=== PATIENT | male | born 1950 | race Caucasian/White ===

== ENCOUNTER 2023-10-18 13:30 | Day surgery (SDC) | payer MEDICARE ==
[~2023-10-18 13:30] MED LIST: LACTATED RINGERS 1,000 ML IV SCH
[2023-10-18] MEDS: LACTATED RINGERS 1,000 ML IV SCH (14:21)
[2023-10-18] MEDS ORDERED: SUCCINYLCHOLINE CHLORIDE 200 MG/10 ML VIAL IV ONE (14:25)
[2023-10-18] MEDS ORDERED: GLYCOPYRROLATE 0.2 MG/ML 2 ML VIAL ONE (14:25)
[2023-10-18] MEDS ORDERED: NEOSTIGMINE 1 MG/ML 10 ML VIAL ONE (14:25)
[2023-10-18] MEDS ORDERED: PROPOFOL 10 MG/ML 20 ML VIAL IV ONE (14:25)
[2023-10-18] MEDS ORDERED: ROCURONIUM 10 MG/ML (5 ML VIAL) IV ONE (14:25)
[2023-10-18] MEDS ORDERED: fentaNYL (PF) 50 MCG/ML 2 ML AMP ONE (14:25)
[2023-10-18] MEDS ORDERED: LIDOCAINE 1% INJ 10MG/ML (20 ML MDV) ONE (14:25)
--- NOTE | 2023-10-18 14:39 | CT ---
EXAMINATION TYPE: CT Chest [facility] protocol DATE OF EXAM: 10/18/2023 COMPARISON: HISTORY: pre bronchial navigation CT DLP: 611 mGycm. Automated Exposure Control for Dose Reduction was Utilized. TECHNIQUE: CT scan of the thorax is performed without IV contrast. FINDINGS: There is an 18.4 x 16.8 mm mass in the medial left upper lobe with spiculated margins. It is highly s uspicious for neoplasm and PET scan and/or biopsy is recommended for further evaluation. There are mild emphysematous changes. There is no pleural effusion or pneumothorax. The great vessels the chest are normal. There is an ill-defined 4.6 x 3.0 cm mass in the aortopulmonic window. Limited scanning through the upper abdomen reveals no gross abnormality. No focal osseous lesions are seen. IMPRESSION: Findings highly suspicious for left upper lobe lung cancer with mediastinal mass in the AP window. PE T scan and/or biopsy is recommended.
--- NOTE | 2023-10-18 16:31 | P.PCN ---
Date of Procedure: 10/18/23 Operative Findings: Left upper lobe mass Postoperative Diagnosis: Left upper lobe mass Procedure(s) Performed: Flexible bronchoscopy Robotic-assisted transbronchial needle aspirate, transbronchial biopsies, transbronchial brushing of the left upper lobe mass, including transbronchial biopsy , transbronchial brushing and a BAL Endobronchial ultrasound Anesthesia: LINETTE Surgeon: Christopher Myers Estimated Blood Loss (ml): 0 Pathology: other Condition: stable Disposition: same day Operative Findings: A physical exam was performed. Informed consent was obtained from the patient after explaining all the risks (pneumothorax, life threatening bleeding, infection and adverse effects due to medications), benefits and alternatives to the procedure which the patient appeared to understand and so stated. The patient was connected to the monitoring devices. General anesthesia was induced and the patient was intubated by anesthesia. A final timeout was performed and the procedure confirmed by the attending staff bronchoscopist. The bronchoscope was inserted and the airway examined. The airway examination revealed a normal trachea and normal airways. The flexible bronchoscope was removed and the robotic bronchoscope was inserted. Registration was completed. I next guided the robotic bronchoscope using the navigation system into the apical segment of the left upper lobe. Once in proper position, the bronchoscope was frozen. The radial EBUS probe was placed through the bronchoscope and confirmed abnormal u/s images vs normal lung. A needle was placed through the working channel and under fluoroscopic guidance, we sampled the area thought to have the mass twice. We then used a cloud biopsy pattern with ultrasound confirmation for 2 additional passes with the needle. U/S evaluation was then used to reconfirm location. Forceps were next introduced through working channel and extended the appropriate distance and 3 transbronchial biopsies were performed using fluoroscopic guidance. The u/s probe was then reinserted to confirm location. When confirmed this process was repeated for a total of 6 transbronchial biopsies. 40ml of saline was then instilled into the area of the lesion. The robotic bronchoscope was removed and the airway inspected with a flexible bronchoscope and 10 ml of effluent from the BAL was collected. The aspirate was bloody and ultimately declotted and based on that, the sample was discarded. Fluoroscopic check for pneumothorax was negative upon completion of the procedure. There was 0 ml blood loss with the procedure. At that point, the robot was disconnected. Endobronchial ultrasound was inserte d and full evaluation of the mediastinum was done. Upon examination, there was no significant enlargement of the mediastinal lymph nodes at the various stations. Based on those findings, no biopsies were done. Endobronchial ultrasound was removed. Flex bronchoscope was inserted and regular suctioning was done. At the completion of the procedure, no residual secretions or bloody material within the airway. The bronchoscope was removed. The patient was extubated. FINDINGS: 1.The airways are normal. 2 Successful navigation, ultrasonographic identification, and biopsies of left upper lobe mass 3.The the radial ultrasound view was concentric 4 endobronchial ultrasound, negative for any pathologic lymphadenopathy. RECOMMENDATIONS: Await pathology and cytology results The referring physician will be alerted to the results when available. The patient was advised to follow up with the referring physician with the biopsy results Patient will be called with results.
[2023-10-18 16:46] VITALS: TEMP 97.2
[2023-10-18 17:20] LABS: ALT 13 U/L (4-49); AST 21 U/L (17-59); African American GFR (CKD) >90 (>60 ml/min/1.73 sqM); Albumin 4.3 g/dL (3.5-5.0); Alkaline Phosphatase 48 U/L (38-126); Anion Gap 6 mmol/L; Blood Urea Nitrogen 21 mg/dL (9-20); Carbon Dioxide 27 mmol/L (22-30); Chloride 106 mmol/L (98-107); Glucose 101 mg/dL (74-99); Non-African American GFR(CKD) 87 (>60 ml/min/1.73 sqM); Potassium 4.9 mmol/L (3.5-5.1); Sodium 139 mmol/L (137-145); Total Bilirubin 0.6 mg/dL (0.2-1.3); Total Protein 7.3 g/dL (6.3-8.2)
--- NOTE | 2023-10-18 17:52 | FL ---
EXAMINATION TYPE: FL bronchoscopy Intraoperative/procedural fluoroscopic services were provided. Tota l fluoroscopy time is 3 minutes 59 seconds seconds with a total of 2 submitted images to PACS. Please see the operative/procedural note for further details. DAP: 9.8907 Gycm2
--- NOTE | 2023-10-18 17:56 | XR ---
EXAMINATION TYPE: XR chest 1V portable DATE OF EXAM: 10/18/2023 5:01 PM CLINICAL INDICATION:Male, 73 years old with history of post-bronch; COMPARISON: Chest radiographs from 09/24/2023 TECHNIQUE: XR chest 1V portable Frontal view of the chest. FINDINGS: Lungs/Pleura: There is no evidence of pleural effusion, focal consolidation, or pneumothorax. Pulmonary vascularity: Unremarkable. Heart/mediastinum: Cardiomediastinal silhouette is unremarkable. Musculoskeletal: No acute osseous pathology. IMPRESSION: Rotated exam with questionable right upper lung medial consolidation. Consider follow-up exam with be tter technique.
[2023-10-18 18:07] VITALS: BP 133/82
[2023-10-18 18:08] VITALS: PULSE 69; RESP 20
== END 2023-10-18 18:21 | disposition home or self-care (01) ==
LOC: ORWHC2ENDO 13:30
PROVIDERS: ATTEND Internal Medicine Critical Care Medicine
DX: J84.10 Pulmonary fibrosis, unspecified (principal); F12.20 Cannabis dependence, uncomplicated; G47.33 Obstructive sleep apnea (adult) (pediatric); I10 Essential (primary) hypertension; I25.10 Atherosclerotic heart disease of native coronary artery without angina pectoris; Z90.49 Acquired absence of other specified parts of digestive tract; Z98.890 Other specified postprocedural states; Z79.899 Other long term (current) drug therapy
CPT/HCPCS: 88108; 88305; 80053; 83735; 87070; 87205; 87116; 87102; 87206; 71045; 71250; 31628; 31629; 31623; 31624; J0330; J2710; J2001; J3010; J2704; S2900; 87496; 87498; 87502; 87529; 87634; 87635; 87798

== ENCOUNTER → 2023-11-09 | Outpatient (CLI) | payer MEDICARE ==
--- NOTE | 2023-11-09 13:08 | CA ---
Exercise Stress Test Report Name: Arnaud Trevino Exam Date: 11/09/2023 10:07 Exam Location: [place] Stress Ht (in): 70 Wt (lb): 210 BSA: 2.13 Ordering Phys: Horace Brooks MD Referring Phys: Todd Technologist: Lloyd Pabon Age: 73 Gender: M : 1950 Procedure CPT: Indications: I20.9 ANGINA PECTORIS, UNSPECIFIED ICD-10 Codes: Patient History: Shortness of breath and palpitations. Pre- OP Medications: Meds past 24 hrs: Pretest Chest Pain: STRESS TEST William Protocol Exercise Duration (min:sec): 04:[address] Depressions (mm): Angina Score: Celeste Score: Resting HR (bpm): 61 Peak HR (bpm): 133 Resting BP (mmHg): 143 / 82 Peak BP (mmHg): 186 / 80 MPHR: 147 Target HR: 125 % MPHR: 90 METS: 6.5 Total Dose: Peak Dose: Atropine: Double Product: 52881 BP Response: Stress Termination: Reached target heart rate Stress Symptoms: Dyspnea Stress Summary: ECG ANALYSIS Resting ECG: Stress ECG: CONCLUSIONS Baseline EKG revealed a normal sinus rhythm without significant ST-T changes. Patient walked on a standard William protocol for 4 minutes 3 seconds and achieved a maximal heart rate of 133 bpm which is 90% of predicted maximal. Patient developed some fatigue and shortness of breath but did not have any angina. EKG demonstrated no evidence of any ST segment changes to indicate ischemia. There was evidence of right-sided PVCs and also rare couplets. By EKG criteria this is a negative stress is with limited exercise capacity. Dr. Jasmine Rolle MD (Electronically Signed) Final Date: 09 Nov 2023 13:07
== END | disposition home or self-care (01) ==
LOC: RADNMMAIN 09:06
PROVIDERS: ATTEND Thoracic Surgery (Cardiothoracic Vascular Surgery)
DX: Z01.810 Encounter for preprocedural cardiovascular examination (principal); I49.3 Ventricular premature depolarization; I20.9 Angina pectoris, unspecified
CPT/HCPCS: 93017

== ENCOUNTER → 2023-11-12 | Outpatient (CLI) | payer MEDICARE ==
[2023-11-12 11:13] LABS: Partial Thromboplastin Time 24.7 sec (22.0-30.0)
[2023-11-12 15:21] LABS: INR 0.9 (<1.2); Prothrombin Time 10.1 sec (10.0-12.5)
[2023-11-12 15:58] LABS: Blood Urea Nitrogen 25.2 mg/dL (9.0-27.0); Carbon Dioxide 25.2 mmol/L (21.6-31.8); Chloride 101 mmol/L (96-109); Glucose 106 mg/dL (70-110); Potassium 4.7 mmol/L (3.5-5.5); Sodium 138 mmol/L (135-145)
[2023-11-12 16:22] LABS: Basophils # (A) 0.03 X 10*3/uL (0.00-0.10); Basophils % (A) 0.6 %; Eosinophils # (A) 0.34 X 10*3/uL (0.04-0.35); Eosinophils % (A) 6.2 %; HCT 40.3 % (39.6-50.0); HGB 13.6 g/dL (13.0-17.0); Lymphocytes # (A) 1.53 X 10*3/uL (0.90-5.00); Lymphocytes % (A) 28.1 %; MCH 31.9 pg (27.0-32.0); MCHC 33.7 g/dL (32.0-37.0); MCV 94.4 FL (80.0-97.0); Mean Platelet Volume 9.6 FL (9.5-12.2); Monocytes # (A) 0.43 X 10*3/uL (0.20-1.00); Monocytes % (A) 7.9 %; NRBC Per 100 WBC 0 X 10*3/uL (0.00-0.01); Neutrophils # (A) 3.06 X 10*3/uL (1.80-7.70); Neutrophils % (A) 56.1 %; Platelet Count 247 X 10*3/uL (140-440); RBC 4.27 X 10*6/uL (4.40-5.60); RDW 13.2 % (11.5-14.5); WBC 5.45 X 10*3/uL (4.50-10.00)
[2023-11-12 16:26] LABS: Appearance,Urine Clear (Clear); Bilirubin,Urine Negative (Negative); Blood,Urine Negative (Negative); Color,Urine Yellow (Yellow); Ketones,Urine Negative (Negative); Nitrite,Urine Negative (Negative); Specific Gravity,Urine 1.011 (1.001-1.030); Urobilinogen,Urine 0.2 E.U./DL
== END | disposition home or self-care (01) ==
LOC: LABPAT 10:30
PROVIDERS: ATTEND Thoracic Surgery (Cardiothoracic Vascular Surgery)
DX: Z01.812 Encounter for preprocedural laboratory examination (principal); R93.1 Abnormal findings on diagnostic imaging of heart and coronary circulation
CPT/HCPCS: 80051; 81003; 82565; 82947; 84520; 85025; 85610; 85730; 86850; 86900; 86901; 87086

== ENCOUNTER 2023-11-14 09:43 | Inpatient (IN) | payer MEDICARE ==
[2023-11-14] MEDS ORDERED: fentaNYL (PF) 50 MCG/ML 2 ML AMP IV PRN (09:58)
[2023-11-14] MEDS ORDERED: HYDROmorphone 0.5 MG/0.5 ML SYRINGE IVP PRN (09:58)
[2023-11-14] MEDS: MIDAZOLAM 2 MG/2 ML VIAL IVP ONE (10:51)
[2023-11-14] MEDS: fentaNYL (PF) 50 MCG/ML 2 ML AMP IVP ONE (10:51)
[2023-11-14] MEDS: ONDANSETRON 4 MG/2 ML VIAL IVP STA (11:13)
[2023-11-14] MEDS: DEXAMETHASONE SOD PHOSPHATE 4 MG/ML 1 ML VIAL IVP STA (11:13)
[2023-11-14] MEDS: LACTATED RINGERS 1,000 ML IV SCH (11:14)
[2023-11-14] MEDS: IV FLUID CONTINUATION 1,000 ML IV ONE ×2 (11:19)
[2023-11-14] MEDS ORDERED: ROPIVACAINE 5 MG/ML 30 ML VIAL ONE (12:00)
[2023-11-14] MEDS ORDERED: fentaNYL (PF) 50 MCG/ML 2 ML AMP ONE (12:00)
[2023-11-14] MEDS ORDERED: PHENYLEPHRINE 10 MG/ML VIAL ONE (12:00)
[2023-11-14] MEDS ORDERED: MIDAZOLAM 2 MG/2 ML VIAL ONE (12:00)
[2023-11-14] MEDS ORDERED: CALCIUM CHLORIDE 100 MG/ML 10 ML SYRINGE ONE (12:00)
[2023-11-14] MEDS ORDERED: GLYCOPYRROLATE 0.2 MG/ML 2 ML VIAL ONE (12:00)
[2023-11-14] MEDS ORDERED: LIDOCAINE 1% INJ 10MG/ML (20 ML MDV) ONE (12:00)
[2023-11-14] MEDS ORDERED: SUCCINYLCHOLINE CHLORIDE 200 MG/10 ML VIAL IV ONE (12:00)
[2023-11-14] MEDS ORDERED: VASOPRESSIN 20 UNIT/ML 1 ML VIAL ONE (12:00)
[2023-11-14] MEDS ORDERED: DEXAMETHASONE SOD PHOSPHATE 4 MG/ML 1 ML VIAL ONE (12:00)
[2023-11-14] MEDS ORDERED: ROCURONIUM 10 MG/ML (5 ML VIAL) IV ONE (12:00)
[2023-11-14] MEDS ORDERED: ePHEDrine 50 MG/ML 1 ML VIAL ONE (12:00)
[2023-11-14] MEDS ORDERED: ALBUMIN HUMAN 5% (12.5gm) 250 ML BOTTLE IVPB ONE (12:00)
[2023-11-14] MEDS ORDERED: PROPOFOL 10 MG/ML 20 ML VIAL IV ONE (12:00)
[2023-11-14] MEDS ORDERED: ALBUMIN HUMAN 5% (25gm) 500 ML VIAL IVPB ONE (12:00)
[2023-11-14] MEDS ORDERED: SODIUM BICARB 8.4% 50 ML SYR (1 MEQ/ML) ONE (12:00)
--- NOTE | 2023-11-14 12:29 | P.ANPRN ---
Procedure Note - Anesthesia - Nerve Block Performed Left Erector Spinae Single Time Out Performed: Yes Date of Procedure: 11/14/23 Procedure Start Time: 10:50 Procedure Stop Time: 11:00 Location of Patient: PreOp Indication: Acute Post-Operative Pain, Analgesia, Requested by Surgeon Sedation Type: Sedate with meaningful contact maintained Preparation: Sterile Prep Position: Prone Needle Types: Pajunk Needle Gauge: 21 Ultrasound used to visualize needle placement: Yes Ultrasound used to observe medication spread: Yes Injectate: 0.5% Ropivacaine (see comment for volume) (25 ml + 4 mg Dexamethasone) Blood Aspirated: No Pain Paresthesia on Injection Noted: No Resistance on Injection: Normal Image Stored and Saved: Yes Events: Uneventful and Well Tolerated
[2023-11-14] MEDS: BUPIVACAINE (PF) 0.25% 30 ML VIAL SQ ONE (12:34)
[2023-11-14] MEDS: LACTATED RINGERS 1,000 ML IV ONE ×3 (14:00→19:12)
[2023-11-14 18:02] LABS: HCT 29.8 % (39.0-53.0); HGB 9.9 gm/dL (13.0-17.5); MCH 31.4 pg (25.0-35.0); MCHC 33.1 g/dL (31.0-37.0); MCV 95.1 fL (80.0-100.0); Mean Platelet Volume 7.4; Platelet Count 141 k/uL (150-450); RBC 3.13 m/uL (4.30-5.90); RDW 14.2 % (11.5-15.5); WBC 7.5 k/uL (3.8-10.6)
[2023-11-14 18:16] LABS: Potassium 4.2 mmol/L (3.5-5.1)
[2023-11-14 18:25] LABS: Allen Test Performed? Yes
[2023-11-14 18:26] LABS: ABG HCO3 13 mmol/L (21-25); ABG PCO2 32 mmHg (35-45); ABG PO2 210 mmHg (83-108)
[2023-11-14 18:27] LABS: INR 1.3 (<1.2); Partial Thromboplastin Time 26.5 sec (22.0-30.0); Prothrombin Time 14.1 sec (10.0-12.5)
[2023-11-14 18:28] LABS: ABG Oxygen Saturation 99.8 % (94-97)
[2023-11-14 18:32] LABS: ABG PH 7.21 (7.35-7.45)
--- NOTE | 2023-11-14 19:59 | P.OP ---
Date of Procedure: 11/14/23 Preoperative Diagnosis: Lung Nodule Postoperative Diagnosis: Non Small Cell Lung Cancer Procedure(s) Performed: 1. Bronchoscopy 2. Left robotic assisted thorascopic surgery converted the open postero-lateral thoracotomy with left upper lobectomy 3. Mediastinal lymph node dissection 4. Intercostal nerve block - 3 levels. Anesthesia: GETA Surgeon: Horace Brooks Doctor'S Assistant #1: Hernesto Delgado Estimated Blood Loss (ml): 3,000 Urine output (ml): 650 Pathology: other Condition: critical Disposition: ICU Indications for Procedure: This patient is a 73 year-old M who is a former smoker with a 20 pack year smoking history who had imaging done by his PCP that revealed a lung nodule. Further work-up including PET/CT revealed a 1.9cm nodule in the apex of the left upper lobe with signficant FDG avidity in the mass as well as AP window nodes. Robotic assisted biopsy was attempted but inconclusive. There was a good chance that this was malignancy and likely Stage 3A disease. Given the lack of tissue diagnosis, young age and excellent functional status, up front frozen section analysis with lobectomy was offered. Operative Findings: Large conglomerate of matted AP window nodes positive for NSCLC. Truncus branch inury requiring conversion to open procedure. Description of Procedure: The patient underwent erecter spinae block and arterial line placement in the pre-operative suite by anesthesia. He was brought back to the operating room and placed in the supine position. General anesthesia was induced and he was intubated with a double lumen tube. Bronchoscopy was performed to check placement of the tube and diagnostic purposes. There were no endobronchial lesions especially in the left upper lobe. The patient was positioned in the right lateral decubitus position and his left chest was prepped and draped in the usual sterile fashion. Antibiotic were given and left lung was isolated. I made 3 small incisions in the 8th intercostal space and placed ports. The maury st was insufflated to 10mm hg. An additional 12mm port was placed anteriorly in the 7th intercostal space and an assist port was placed in the 10th intercostal space. 0.25% marcaine was used to perform intercostal nerve block at each level. The Da Valentina Xi robot was docked and the left upper lobe mass was identified and wedged using an endo-JESSICA stapler. Next the AP window area was dissected. Level 5 and 6 nodes were matted and abnormal appearing. This was all sent for frozen section analysis. In the meantime the inferior pulmonary ligament was divided using bipolar cautery and the posterior mediastinal pleura was released. The level 9 and 7 nodes were harvested here. The anterior mediastinal pleura was dissected and the superior pulomary vein was encircled with a vessel loop. Frozen section analysis revealed non small cell carcinoma. Attention was turned posteiror to the branches of the PA. Two branches of the PA were encircled separate and stapled using the robotic white load. The superior pulmonary vein was then stapled using a robotic white load. Next the anterior and posterior fissures were divided using a robotic blue load stapler. Next the upper lobe bronchus was encirlced and stapled using a robotic green load stapler. This staple fire was abruptly terminated half way due to robotic stapler malfunction. The rest of the bronchus was taken with a new robotic stapler using a blue load. Attention was then turned to the truncus branch of the PA. The matted nodes were significant adherent to this branch. Upon dissection, I encountered bleeding from the superior portion of the truncus/PA junction. Pressure was held and the bleeding subsided momentarily. However, given my concern for real injury I made the decision to open. Posterolateral thoracotomy was performed in the 5th intercostal space and upon inspection of the area there was a tear noted on the truncus. An attempt at encircling this was attempted but unsuccessful. At this point two straight vascular clamps were placed in the artery and the endo JESSICA vascular load was fired above it. The specimen was passed off to pathology. The injured vessel was then repaired using a mattress 4-0 prolene suture and pledg eted 4-0 prolene suture. Clamps were released with good hemostasis. However, we did lose 3L of blood in the process and the patient was transfused 4 units of pRBC. The chest was irrigated and thoracotomy closed in layers of PDS and matthieu. 32F right angled and 28F chest tubes were placed. Robotic incisions were closed in layers of vicryl and glue. Patient was transferred to CICU in critical condition requiring mild amount of vasopressors but without signs of bleeding.
[2023-11-14] MEDS: NOREPINEPHRINE 4 MG in SODIUM CHLORIDE 0.9% 250 ML IV SCH (20:13)
[2023-11-14] MEDS: SODIUM BICARBONATE 150 MEQ in DEXTROSE 5% IN WATER 1,000 ML IV SCH (20:25)
[2023-11-14 20:28] LABS: ABG Base Excess -6.3 mmol/L; ABG HCO3 21 mmol/L (21-25); ABG Oxygen Saturation 100.3 % (94-97); ABG PCO2 50 mmHg (35-45); ABG PH 7.23 (7.35-7.45); ABG TCO2 23 mmol/L (19-24); Allen Test Performed? Yes
[2023-11-14 20:29] LABS: ABG PO2 >420 mmHg (83-108)
[2023-11-14 20:39] LABS: Basophils % (A) 0 %; Eosinophils % (A) 0 %; HCT 27.2 % (39.0-53.0); HGB 8.9 gm/dL (13.0-17.5); Lymphocytes # (A) 0.6 k/uL (1.0-4.8); Lymphocytes % (A) 8 %; MCH 30.6 pg (25.0-35.0); MCHC 32.5 g/dL (31.0-37.0); Mean Platelet Volume 8.5; Monocytes # (A) 0.7 k/uL (0-1.0); Monocytes % (A) 9 %; Neutrophils # (A) 6.3 k/uL (1.3-7.7); Neutrophils % (A) 82 %; Platelet Count 134 k/uL (150-450); RBC 2.89 m/uL (4.30-5.90); RDW 14.6 % (11.5-15.5); WBC 7.7 k/uL (3.8-10.6)
[2023-11-14 21:27] LABS: AST 22 U/L (17-59); African American GFR (CKD) >90 (>60 ml/min/1.73 sqM); Albumin 2.5 g/dL (3.5-5.0); Alkaline Phosphatase 23 U/L (38-126); Anion Gap 12 mmol/L; Blood Urea Nitrogen 18 mg/dL (9-20); Calcium 7.2 mg/dL (8.4-10.2); Carbon Dioxide 22 mmol/L (22-30); Chloride 107 mmol/L (98-107); Glucose 321 mg/dL (74-99); Magnesium 1.4 mg/dL (1.6-2.3); Non-African American GFR(CKD) >90 (>60 ml/min/1.73 sqM); Potassium 3.2 mmol/L (3.5-5.1); Sodium 141 mmol/L (137-145); Total Bilirubin 1.3 mg/dL (0.2-1.3); Total Protein 4.1 g/dL (6.3-8.2)
[2023-11-14] MEDS ORDERED: WATER IV SCH (21:30)
[2023-11-14] MEDS ORDERED: SODIUM BICARB IV SCH (21:30)
[2023-11-14] MEDS ORDERED: DEXTROSE 5% IV SCH (21:30)
[2023-11-14 21:52] LABS: ALT 17 U/L (4-49)
[2023-11-14] MEDS ORDERED: Potassium Replacement Protocol 1 EACH MISC MISCELLANE PRN ×2 (21:57→22:53)
[2023-11-14] MEDS ORDERED: Magnesium Replacement Protocol 1 EACH MISC MISCELLANE PRN (21:58)
[2023-11-14] MEDS: MAGNESIUM SULFATE-D5W PMX 1 GM in DEXTROSE/WATER 1 100ML.BAG IVPB SCH (22:49)
--- NOTE | 2023-11-14 23:03 | XR ---
EXAMINATION TYPE: XR chest 1V portable DATE OF EXAM: 11/14/2023 CLINICAL HISTORY: Postlobectomy. TECHNIQUE: Single AP portable semiupright view of the chest is obtained. COMPARISON: Chest x-ray from October 18, 2023 FINDINGS: There is is new endotracheal tube terminating at the aortic knob level approximately 4 to 5 cm above the mildred. There is new orogastric tube extending to the proximal duodenum. There R2 new left-sided chest tubes. There is new left-sided volume loss without pneumothorax. Overlying matthieu a nd subcutaneous air is present. Right lung remains clear. Cardiac silhouette size remains within norm al limits. Osseous structures are intact. IMPRESSION: 1. New endotracheal and orogastric tubes are satisfactory in position. 2. There are 2 left-sided chest tubes with new left-sided volume loss without visualized pneumothorax . Right lung remains clear.
[2023-11-14] MEDS: POTASSIUM CHLORIDE 10 MEQ in WATER FOR INJECTION 1 100ML.BAG IVPB SCH (23:06)
[2023-11-15] MEDS ORDERED: DEXTROSE 50% SYRINGE 50 ML IVP PRN ×2 (00:11)
[2023-11-15 00:15] LABS: Glucose,Whole Blood 375 mg/dL (70-110)
[2023-11-15] MEDS: INSULIN ASPART (NovoLOG) 100 UNIT/ML VIAL SQ ONE ×2 (00:32→09:04)
[2023-11-15] MEDS ORDERED: ONDANSETRON 4 MG/2 ML VIAL IVP PRN (00:44)
[2023-11-15] MEDS ORDERED: IPRATROPIUM-ALBUTEROL 3 ML NEB IH PRN (00:44)
[2023-11-15] MEDS: METOPROLOL SUCCINATE (ER) 50 MG TAB.ER.24H PO SCH (00:54)
[2023-11-15] MEDS: traZODone HCL 50 MG TAB PO SCH (00:55)
[2023-11-15] MEDS: SERTRALINE 50 MG TAB PO SCH (00:57)
[2023-11-15] MEDS: DEXTROSE 5%-0.45% NACL 1,000 ML IV SCH (01:06)
[2023-11-15] MEDS: IPRATROPIUM-ALBUTEROL 3 ML NEB IH SCH (01:37)
--- NOTE | 2023-11-15 01:47 | P.CNPUL ---
History of Present Illness Consult date: 11/15/23 Requesting physician: Horace Brooks Reason for consult: other (Status post video-assisted thorascopic surgery converted to open with left upper lobectomy) Chief complaint: Status post video-assisted thorascopic surgery converted to open with left History of present illness: Patient is a 73-year-old white male with past medical history significant for left upper lung nodule. Patient did reportedly have a PET scan, showing an FDG avid spiculated 17 x 15 mm lung nodule. He underwent Ion bronchoscopy with Dr. Myers on 10/18/2023, which was essentially nondiagnostic. He was referred to cardiothoracic surgery for diagnosis. Yesterday, patient underwent bronchoscopy with a left robotic assisted thorascopic surgery converted to open posterior lateral thoracotomy with left upper lobectomy and mediastinal lymph node dissection. The OR report indicated some nodes matted and adherent to the truncus branch of the pulmonary artery. 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 Intraoperatively, the patient was noted to have extensive blood loss, total of 3 L EBL. He was converted to open procedure. Hemostasis was able to be achieved. He has received a total of 5 units PRBCs, 1.2 L of albumin, and 3 L of crystalloid. He is currently in the intensive care unit, intubated to mechanical ventilator. He has a left lateral thoracotomy incision with 2 chest tubes with a total of 170 mL of serosanguineous output collectively. 1 has a persistent intermittent airleak. They are attached to 2 separate atriums with -20 cm H2O suction. Postoperative chest x-ray shows the endotracheal tube approximately 4 to 5 cm above the mildred, in satisfactory position. Orogastric tube likely extending in the proximal duodenum. The two left-sided chest tubes are demonstrated, with new left-sided volume loss, without visualized pneumothorax or fluid collection. Initial postoperative ventilator settings were AC, respiratory rate 16, tidal volume 500, FiO2 100%, and PEEP of 5. Follow-up ABGs included a PaO2 of greater than 420, P CO2 of 50, pH of 7.23. My supervising physician adjusted the respiratory rate to 20 and FiO2 has been cut down to 50%. Patient is currently synchronous on mechanical ventilator. He is sedated on propofol which is infusing at 40 mcg/kg/min. Levophed is also infusing at 0.05 mcg/kg/min. This is an improvement, as the patient had some substantial hypotension intraoperatively. The nurse has been able to titrate down on the Levophed after completing the above-mentioned blood products. No significant hemorrhaging from chest tubes at this time. Fluid appears serosanguineous. Most recent hemoglobin 8.9 g/dL, hematocrit 27.2, platelets 134,000. Coagulation profile includes a PT of 14, INR of 1.3, and a PTT of 26.5. Most recent available BMP: Sodium 141, potassium 3.2, chloride 107, serum bicarb 22, BUN 18, creatinine 0.73, glucose 321. Patient also has a 3M sodium bicarb in D5W infusion at 200 MLS per hour. This is a contributing to some hyperglycemia. Review of Systems ROS unobtainable: due to endotracheal tube Past Medical History Past Medical History: Chest Pain / Angina, Hypertension, Prostate Disorder, Sleep Apnea/CPAP/BIPAP Additional Past Medical History / Comment(s): uses cpap, recent difficutly breathing with exertion, chest pain approx 20yrs ago, bells palsy,elevated prostate numbers, had bx was clear,. disolocated neck as child History of Any Multi-Drug Resistant Organisms: None Reported Past Surgical History: Appendectomy Additional Past Surgical History / Comment(s): kncule replacement. kidney stones with stent placement, anal sissure repair Additional Past Anesthesia/Blood Transfusion Reaction / Comment(s): "stopped breathing during anal fissure surgery" approx 20yrs Smoking Status: Never smoker - Past Family History Mother Family Medical History: Cancer Additional Family Medical History / Comment(s): breast Medications and Allergies Home Medications Medication Instructions Recorded Confirmed Type ALPRAZolam [Xanax] 0.5 mg PO DAILY PRN 10/15/23 11/14/23 History Albuterol Inhaler [Ventolin Hfa 1 - 2 puff INHALATION Q6H PRN 10/15/23 11/14/23 History Inhaler] Dutasteride 0.5 mg PO DAILY 10/15/23 11/14/23 History Fluticasone Propionate 2 sprays EA NOSTRIL DAILY 10/15/23 11/14/23 History [Fluticasone Propionate [place] 50 mcg Nasal [place]] Losartan/Hydrochlorothiazide 1 tab PO DAILY 10/15/23 11/14/23 History [Losartan-Hctz 100-25 mg Tab] Metoprolol Succinate (ER) [Toprol 50 mg PO HS 10/15/23 11/14/23 History Xl] Sertraline [Zoloft] 50 mg PO HS 10/15/23 11/14/23 History Tamsulosin [Flomax] 0.4 mg PO DAILY 10/15/23 11/14/23 History amLODIPine BESYLATE 10 mg PO DAILY 10/15/23 11/14/23 History traZODone HCL [Desyrel] 50 mg PO HS 10/15/23 11/14/23 History Allergies Allergy/AdvReac Type Severity Reaction Status Date / Time ragweed pollen Allergy Itching Verified 11/14/23 10:26 Physical Exam Vitals: Vital Signs Temp Pulse Pulse Resp BP BP Pulse Ox 11/15/23 00:29 97.5 F L 94 20 104/53 99 11/15/23 00:15 92 20 100 11/15/23 00:00 97.5 F L 94 20 99 11/14/23 23:45 93 20 100 11/14/23 23:42 11/14/23 23:38 11/14/23 23:30 92 20 100 11/14/23 23:15 90 20 100 11/14/23 23:00 90 20 100 11/14/23 22:45 93 20 100 11/14/23 22:36 92 20 117/66 100 11/14/23 22:30 92 20 100 11/14/23 22:20 93 20 106/96 100 11/14/23 22:16 92 20 106/96 100 11/14/23 22:10 97 20 108/61 100 11/14/23 22:00 87 20 98/53 100 11/14/23 21:50 89 20 105/58 100 11/14/23 21:40 89 20 98/50 100 11/14/23 21:30 91 20 96/51 11/14/23 21:20 87 20 87/50 100 11/14/23 21:10 87 20 86/45 100 11/14/23 21:00 88 20 83/56 100 11/14/23 20:50 88 20 79/50 100 11/14/23 20:40 92 20 92/48 100 11/14/23 20:30 96 20 101/49 100 11/14/23 20:20 101 H 20 79/36 100 11/14/23 20:10 101 H 20 98/49 100 11/14/23 20:00 11/14/23 19:59 11/14/23 11:03 56 L 16 99/63 96 11/14/23 10:19 97.9 F 68 16 121/75 96 FiO2 11/15/23 00:29 11/15/23 00:15 11/15/23 00:00 50 11/14/23 23:45 11/14/23 23:42 50 11/14/23 23:38 40 11/14/23 23:30 11/14/23 23:15 11/14/23 23:00 11/14/23 22:45 11/14/23 22:36 11/14/23 22:30 11/14/23 22:20 11/14/23 22:16 11/14/23 22:10 11/14/23 22:00 11/14/23 21:50 11/14/23 21:40 11/14/23 21:30 11/14/23 21:20 11/14/23 21:10 11/14/23 21:00 11/14/23 20:50 11/14/23 20:40 11/14/23 20:30 50 11/14/23 20:20 11/14/23 20:10 50 11/14/23 20:00 100 11/14/23 19:59 100 11/14/23 11:03 11/14/23 10:19 Intake and Output 11/14/23 11/14/23 11/15/23 14:59 22:59 06:59 Intake Total 4050 2123.921 2414.556 Output Total 650 4215 463 Balance 3400 -2443.915 567.556 Intake: IV 4050 440 626 A line 6 Dextrose 5% in Water 1, 350 200 000 ml @ 200 mls/hr IV . Q5H45M [facility]NA with Sodium Bicarb (1 Meq/ml) 150 ml Rx#:[id number] Lactated Ringers 1,000 ml 40 20 @ 20 mls/hr IV .Q24H MINNA Rx#:[id number] Magnesium Sulfate-D5w Pmx 200 1 gm In Dextrose/Water 1 100ml.bag @ 100 mls/hr IVPB Q1H MINNA Rx#: [id number] Potassium Chloride 10 meq 200 In Water For Injection 1 100ml.bag @ 100 mls/hr IVPB Q1HR MINNA Rx#: [id number] Intake, IV Titration 150.085 118.556 Amount Norepinephrine 4 mg In 144.192 61.976 Sodium Chloride 0.9% 250 ml @ 0.03 MCG/KG/MIN 10. 779 mls/hr IV .[id number] [facility]NA Rx#:[id number] propofoL 1,000 mg In 5.893 56.58 Empty Bag 1 bag @ 15 MCG/ KG/MIN 8.487 mls/hr IV . [id number] MINNA Rx#:[id number] Blood Product 1181 286 Rc As-1 Unit 310 [id number] Rc As-1 Unit 310 [id number] Rc Pheresis 2 As3 Unit 0 286 [id number] Rc Pheresis As-3 Unit 282 [id number] Rc Pheresis As-3 Unit 279 [id number] Output: Chest Tube Drainage 135 63 L pleural CHT 1 40 20 L pleural CHT 2 95 43 Urine 650 1080 400 Estimated Blood Loss 3000 Other: Voiding Method Indwelling Catheter Weight 94.3 kg ABP, PAP, CO, CI - Last 8 Hours Arterial Blood Pressure 105/54 Arterial Blood Pressure 108/54 Arterial Blood Pressure 112/56 Arterial Blood Pressure 115/58 Arterial Blood Pressure 117/60 Arterial Blood Pressure 117/60 Arterial Blood Pressure 112/59 Arterial Blood Pressure 117/66 GENERAL EXAM: Sedated, intubated to mechanical ventilator, synchronous, no apparent distress HEAD: Normocephalic and atraumatic EYES: Normal reaction of pupils, equal size. NOSE: Clear with pink turbinates. THROAT: No erythema or exudates. NECK: No masses, no JVD. CHEST: Left lateral thoracotomy incision. 2 left-sided chest tubes attached to 2 separate atriums and 20 cm H20 of suction LUNGS: Equal air entry with left-sided grating sound or pleural friction rub. Intubated mechanical ventilator. Synchronous. Peak pressures 24. No significant airway secretions. CVS: S1 and S2 normal with no audible murmur, regular rhythm. No extra heart sounds ABDOMEN: No hepatosplenomegaly, hypoactive bowel sounds, no guarding or rigidity. SPINE: No scoliosis or deformity SKIN: No rashes. Generalized pallor. CENTRAL NERVOUS SYSTEM: No focal deficits, tone is normal in all 4 extremities. EXTREMITIES: There is no peripheral edema, clubbing, or cyanosis. Peripheral pulses are intact. Results - Laboratory Findings CBC and BMP: 11/14/23 20:06 11/14/23 20:06 ABG ABG pH 7.23 (7.35-7.45) L 11/14/23 20:24 ABG pCO2 50 mmHg (35-45) H 11/14/23 20:24 ABG pO2 >420 mmHg (83-108) H 11/14/23 20:24 ABG O2 Saturation 100.3 % (94-97) H 11/14/23 20:24 PT/INR, D-dimer PT 14.1 sec (10.0-12.5) H 11/14/23 17:46 INR 1.3 (<1.2) H 11/14/23 17:46 Abnormal lab findings: Abnormal Labs 11/12/23 11/14/23 11/14/23 10:42 17:46 17:46 RBC 3.13 L Hgb 9.9 L Hct 29.8 L Plt Count 141 L Lymphocytes # PT 14.1 H INR 1.3 H ABG pH ABG pCO2 ABG pO2 ABG HCO3 ABG O2 Saturation Hemoglobin Potassium Chloride Carbon Dioxide Glucose POC Glucose (mg/dL) Calcium Magnesium Alkaline Phosphatase Total Protein Albumin Crossmatch See Detail 11/14/23 11/14/23 11/14/23 17:46 17:46 20:06 RBC 2.89 L Hgb 8.9 L Hct 27.2 L Plt Count 134 L Lymphocytes # 0.6 L PT INR ABG pH 7.21 L ABG pCO2 32 L ABG pO2 210 H ABG HCO3 13 L ABG O2 Saturation 99.8 H Hemoglobin 7.5 L Potassium Chloride 110 H Carbon Dioxide 16 L Glucose POC Glucose (mg/dL) Calcium Magnesium Alkaline Phosphatase Total Protein Albumin Crossmatch 11/14/23 11/14/23 11/15/23 20:06 20:24 00:06 RBC Hgb Hct Plt Count Lymphocytes # PT INR ABG pH 7.23 L ABG pCO2 50 H ABG pO2 >420 H ABG HCO3 ABG O2 Saturation 100.3 H Hemoglobin Potassium 3.2 L Chloride Carbon Dioxide Glucose 321 H POC Glucose (mg/dL) 375 H Calcium 7.2 L Magnesium 1.4 L Alkaline Phosphatase 23 L Total Protein 4.1 L Albumin 2.5 L Crossmatch - Diagnostic Findings Chest x-ray: image reviewed Assessment and Plan Assessment: Status postoperative day #1 following bronchoscopy with a left robotic assisted thorascopic surgery converted to open posterior lateral thoracotomy with left upper lobectomy and mediastinal lymph node dissection. The OR report indicated some nodes matted and adherent to the truncus branch of the pulmonary artery. Frozen section analysis reportedly revealed non-small cell carcinoma. Intraoperatively, the patient was noted to have extensive blood loss, total of 3 L EBL. He was converted to open procedure. Hemostasis was able to be achieved. He has received a total of 5 units PRBCs, 1.2 L of albumin, and 3 L of crystalloid. Patient is currently recovering in the intensive care unit Routine postoperative ventilator management, postoperative chest x-ray shows endotracheal tube in satisfactory position, orogastric tube likely terminating within the duodenum, 2 left-sided thoracotomy tubes noted, no obvious pneumothorax or pleural effusions. Follow-up ABG showed component of respiratory and metabolic acidosis, ventilator settings already adjusted by my supervising physician. Will work at weaning the patient from the ventilator this morning. History of left upper lung nodule, previous PET scan demonstrating a FDG avid spiculated 17 x 15 mm lung nodule. Previously underwent robotic assisted bronchoscopy with Dr. Myers 10/18/2023, which was essentially nondiagnostic. Patient was referred to cardiothoracic surgery for diagnosis. Acute blood loss anemia, hemostasis achieved intraoperatively, status post 5 units PRBCs, most recent hemoglobin 8.9 g/dL Hypotension and hypovolemic shock, patient had a large EBL of 3 L, receiving a total of 5 units PRBCs, 1.2 L albumin, and 3 L crystalloid so far, eventually requiring vasopressor support. Norepinephrine is currently being weaned down. Hyperglycemia, likely exacerbated by sodium bicarbonate in D5W infusion, no documented history of diabetes mellitus Hypokalemia and hypomagnesemia, being replaced per protocol History of hypertension History of obstructive sleep apnea History of marijuana use Former tobacco smoker, quitting May 2023 Plan: Patient is currently recovering in the intensive care unit. Remains intubated mechanical ventilator. Ventilator adjustments noted. Will work on weaning this patient from the ventilator this morning. Follow-up with a chest x-ray this morning. Monitor chest tube output. Waiting on repeat labs. Patient has received a total of 5 units PRBCs. Patient's vasopressor requirements have lessened after volume resuscitation. Remains on low-dose Levophed. Also, on a sodium bicarb with 3 A in D5W infusing at 200 MLS per hour, which will likely be discontinued. This is contributing to some hyperglycemia. Sliding scale insulin ordered Protonix for GI prophylaxis. SCDs are on. Pharmacological DVT prophylaxis per surgery. Further recommendations are forthcoming. Time with Patient: Greater than 30
[2023-11-15 04:02] LABS: Basophils % (A) 0 %; Eosinophils % (A) 0 %; HCT 30.8 % (39.0-53.0); HGB 10.6 gm/dL (13.0-17.5); Lymphocytes # (A) 0.4 k/uL (1.0-4.8); Lymphocytes % (A) 7 %; MCH 31.5 pg (25.0-35.0); MCHC 34.4 g/dL (31.0-37.0); MCV 91.4 fL (80.0-100.0); Mean Platelet Volume 8.9; Monocytes # (A) 0.4 k/uL (0-1.0); Monocytes % (A) 7 %; Neutrophils # (A) 4.9 k/uL (1.3-7.7); Neutrophils % (A) 85 %; Platelet Count 128 k/uL (150-450); RBC 3.37 m/uL (4.30-5.90); RDW 14.3 % (11.5-15.5); WBC 5.7 k/uL (3.8-10.6)
[2023-11-15 04:43] LABS: African American GFR (CKD) >90 (>60 ml/min/1.73 sqM); Anion Gap 10 mmol/L; Blood Urea Nitrogen 17 mg/dL (9-20); Calcium 7.6 mg/dL (8.4-10.2); Carbon Dioxide 23 mmol/L (22-30); Chloride 103 mmol/L (98-107); Glucose 287 mg/dL (74-99); Magnesium 1.9 mg/dL (1.6-2.3); Non-African American GFR(CKD) 90 (>60 ml/min/1.73 sqM); Potassium 4.2 mmol/L (3.5-5.1); Sodium 136 mmol/L (137-145)
[2023-11-15 05:51] LABS: ABG Base Excess 2.3 mmol/L; ABG HCO3 27 mmol/L (21-25); ABG Oxygen Saturation 99.6 % (94-97); ABG PCO2 40 mmHg (35-45); ABG PH 7.44 (7.35-7.45); ABG PO2 117 mmHg (83-108); ABG TCO2 28 mmol/L (19-24); Allen Test Performed? Yes
[2023-11-15 05:54] LABS: Glucose,Whole Blood 265 mg/dL (70-110)
[2023-11-15] MEDS: PANTOPRAZOLE 40 MG TABLET PO SCH (05:57)
[2023-11-15] MEDS: INSULIN ASPART (NovoLOG) 100 UNIT/ML VIAL SQ SCH ×2 (05:58→21:28)
[2023-11-15] MEDS: MAGNESIUM SULFATE-D5W PMX 1 GM in DEXTROSE/WATER 1 100ML.BAG IVPB ONE (05:58)
--- NOTE | 2023-11-15 07:41 | XR ---
EXAMINATION TYPE: XR chest 1V portable DATE OF EXAM: 11/15/2023 Comparison: 11/14/2023 Clinical History: 73-year-old male status post VATs with left upper lobectomy Findings: ET tube and NG tube in place. The tip of NG tube is in the right upper quadrant probably within the d uodenum. Heart borderline enlarged. Mild hyperinflation. 2 left-sided chest tubes in place. Some inte rval worsening in interstitial densities throughout. Left basilar opacity slightly worsened in the in terval. Mild subcutaneous emphysema on the left. Left-sided skin matthieu. There is a small left apica l pneumothorax measuring 2.8 cm. Impression: 1. 2 left-sided chest tubes with postsurgical change left hemithorax and A 2.9 CM SMALL LEFT APICAL P NEUMOTHORAX NOW DEMONSTRATED. 2. Interstitial densities and left basilar opacity are increasing. 3. NG tube tip may be within the duodenum. Clinically correlate.
--- NOTE | 2023-11-15 08:45 | P.PN ---
Subjective Progress Note Date: 11/15/23 Principal diagnosis: Lung nodule, non-small cell lung cancer. Previous medical history of tobacco dependence with recent cessation in May 2023, obstructive sleep apnea with home CPAP use, hypertension, BPH, anxiety/depression, and frequent marijuana use POD #1 bronchoscopy, left robotic assisted thorascopic surgery converted the open postero-lateral thoracotomy with left upper lobectomy, mediastinal lymph node dissection, intercostal nerve block - 3 levels Acute blood loss anemia, hypotension due to hypovolemic shock, recovered after blood transfusion The patient was seen and examined with Dr. Kerns laying in bed in the intensive care unit still on mechanical ventilation. Currently in sinus rhythm, hemodynamically stable, off levo since last night. Remains on propofol for sedation. Left sided apical and basilar chest tubes present apical chest tube (anterior) with 120 mL serosanguineous drainage since surgery, basilar (posterior) chest tube with 300 mL drainage since surgery. Plan is to wake patient up and extubate, Dr. Brooks did discuss with anesthesia the need for an epidural for pain control. Objective - Vital Signs Vital signs: Vital Signs Temp 98.2 F 11/15/23 04:00 Pulse 94 11/15/23 07:00 Resp 21 11/15/23 07:00 BP 105/68 11/15/23 02:00 Pulse Ox 100 11/15/23 07:00 FiO2 40 11/15/23 04:00 Intake & Output 11/14/23 11/15/23 11/15/23 18:59 06:59 18:59 Intake Total 5231 2980.545 Output Total 650 5823 Balance 2577 -3122.455 Weight 94.3 kg 100.2 kg Intake: IV 4050 2234 A line 24 Dextrose 5% in Water 1, 1050 000 ml @ 100 mls/hr IV . [id number] MINNA with Sodium Bicarb (1 Meq/ml) 150 ml Rx#:[id number] Dextrose 5%-0.45% NaCl 1, 300 000 ml @ 50 mls/hr IV . Q20H MINNA Rx#:[id number] Lactated Ringers 1,000 ml 60 @ 20 mls/hr IV .Q24H MINNA Rx#:[id number] Magnesium Sulfate-D5w Pmx 300 1 gm In Dextrose/Water 1 100ml.bag @ 100 mls/hr IVPB Q1H MINNA Rx#: [id number] Potassium Chloride 10 meq 400 In Water For Injection 1 100ml.bag @ 100 mls/hr IVPB Q1HR MINNA Rx#: [id number] ceFAZolin 2 gm In Sodium 50 Chloride 0.9% 50 ml @ 100 mls/hr IVPB Q8HR MINNA Rx# :[id number] Intake, IV Titration 460.545 Amount Norepinephrine 4 mg In 237.008 Sodium Chloride 0.9% 250 ml @ 0.03 MCG/KG/MIN 10. 779 mls/hr IV .[id number] MINNA Rx#:[id number] propofoL 1,000 mg In 223.537 Empty Bag 1 bag @ 15 MCG/ KG/MIN 8.487 mls/hr IV . [id number] MINNA Rx#:[id number] Blood Product 1181 286 Rc As-1 Unit 310 [id number] Rc As-1 Unit 310 [id number] Rc Pheresis 2 As3 Unit 286 [id number] Rc Pheresis As-3 Unit 282 [id number] Rc Pheresis As-3 Unit 279 [id number] Output: Chest Tube Drainage 408 L pleural CHT 1 120 L pleural CHT 2 288 Urine 650 2415 Estimated Blood Loss 3000 Other: Voiding Method Indwelling Catheter ABP, PAP, CO, CI - Last Documented Arterial Blood Pressure 108/55 - Exam CONSTITUTIONAL: Currently remains on mechanical ventilation, sedated with propofol although does open his eyes RESPIRATORY: Lungs sounds diminished bilaterally. Respirations even, nonlabored. Currently on assist-control mode, FiO2 40%, tidal volume 500, respiratory rate 20, PEEP 5. 8.0 ET tube present, 24 at the lip. CARDIOVASCULAR: S1, S2 present. Regular rate and rhythm, sinus rhythm on telemetry. Palpable peripheral pulses bilaterally. No edema present. No calf pain or tenderness noted. SCDs present. GASTROINTESTINAL: Abdomen soft, nontender, nondistended. Hypoactive bowel sounds present 4 quadrants. OG tube present to low intermittent suction, minimal drainage GENITOURINARY: Hutchinson present draining clear, yellow urine. Output 100 to 240 mL/h overnight INTEGUMENTARY: Skin is warm and dry with evidence of good perfusion. Thoracic incision well approximated and covered with dry intact dressing. NEUROLOGIC: Sedated with propofol, does open his eyes and follows commands INVASIVE LINES AND TUBES: Left apical and basilar pleural chest tubes present and connected to wall suction, airleak present in the apical chest tube. Apical (anterior) tube with 120 mL serosanguineous drainage since surgery. Basilar (posterior) tube with 300 mL serosanguineous drainage since surgery - Allied health notes Allied health notes reviewed: nursing - Labs CBC & Chem 7: 11/15/23 04:00 11/15/23 04:00 Labs: Abnormal Lab Results - Last 24 Hours (Table) 11/12/23 11/14/23 11/14/23 Range/Units 10:42 17:46 17:46 RBC 3.13 L (4.30-5.90) m/uL Hgb 9.9 L (13.0-17.5) gm/dL Hct 29.8 L (39.0-53.0) % Plt Count 141 L (150-450) k/uL Lymphocytes # (1.0-4.8) k/uL PT 14.1 H (10.0-12.5) sec INR 1.3 H (<1.2) ABG pH (7.35-7.45) ABG pCO2 (35-45) mmHg ABG pO2 (83-108) mmHg ABG HCO3 (21-25) mmol/L ABG Total CO2 (19-24) mmol/L ABG O2 Saturation (94-97) % Hemoglobin (13.0-17.5) gm/dL Sodium (137-145) mmol/L Potassium (3.5-5.1) mmol/L Chloride (98-107) mmol/L Carbon Dioxide (22-30) mmol/L Glucose (74-99) mg/dL POC Glucose (mg/dL) (70-110) mg/dL Calcium (8.4-10.2) mg/dL Magnesium (1.6-2.3) mg/dL Alkaline Phosphatase (38-126) U/L Total Protein (6.3-8.2) g/dL Albumin (3.5-5.0) g/dL Crossmatch See Detail 11/14/23 11/14/23 11/14/23 Range/Units 17:46 17:46 20:06 RBC 2.89 L (4.30-5.90) m/uL Hgb 8.9 L (13.0-17.5) gm/dL Hct 27.2 L (39.0-53.0) % Plt Count 134 L (150-450) k/uL Lymphocytes # 0.6 L (1.0-4.8) k/uL PT (10.0-12.5) sec INR (<1.2) ABG pH 7.21 L (7.35-7.45) ABG pCO2 32 L (35-45) mmHg ABG pO2 210 H (83-108) mmHg ABG HCO3 13 L (21-25) mmol/L ABG Total CO2 (19-24) mmol/L ABG O2 Saturation 99.8 H (94-97) % Hemoglobin 7.5 L (13.0-17.5) gm/dL Sodium (137-145) mmol/L Potassium (3.5-5.1) mmol/L Chloride 110 H (98-107) mmol/L Carbon Dioxide 16 L (22-30) mmol/L Glucose (74-99) mg/dL POC Glucose (mg/dL) (70-110) mg/dL Calcium (8.4-10.2) mg/dL Magnesium (1.6-2.3) mg/dL Alkaline Phosphatase (38-126) U/L Total Protein (6.3-8.2) g/dL Albumin (3.5-5.0) g/dL Crossmatch 11/14/23 11/14/23 11/15/23 Range/Units 20:06 20:24 00:06 RBC (4.30-5.90) m/uL Hgb (13.0-17.5) gm/dL Hct (39.0-53.0) % Plt Count (150-450) k/uL Lymphocytes # (1.0-4.8) k/uL PT (10.0-12.5) sec INR (<1.2) ABG pH 7.23 L (7.35-7.45) ABG pCO2 50 H (35-45) mmHg ABG pO2 >420 H (83-108) mmHg ABG HCO3 (21-25) mmol/L ABG Total CO2 (19-24) mmol/L ABG O2 Saturation 100.3 H (94-97) % Hemoglobin (13.0-17.5) gm/dL Sodium (137-145) mmol/L Potassium 3.2 L (3.5-5.1) mmol/L Chloride (98-107) mmol/L Carbon Dioxide (22-30) mmol/L Glucose 321 H (74-99) mg/dL POC Glucose (mg/dL) 375 H (70-110) mg/dL Calcium 7.2 L (8.4-10.2) mg/dL Magnesium 1.4 L (1.6-2.3) mg/dL Alkaline Phosphatase 23 L (38-126) U/L Total Protein 4.1 L (6.3-8.2) g/dL Albumin 2.5 L (3.5-5.0) g/dL Crossmatch 11/15/23 11/15/23 11/15/23 Range/Units 04:00 04:00 05:47 RBC 3.37 L (4.30-5.90) m/uL Hgb 10.6 L (13.0-17.5) gm/dL Hct 30.8 L (39.0-53.0) % Plt Count 128 L (150-450) k/uL Lymphocytes # 0.4 L (1.0-4.8) k/uL PT (10.0-12.5) sec INR (<1.2) ABG pH (7.35-7.45) ABG pCO2 (35-45) mmHg ABG pO2 117 H (83-108) mmHg ABG HCO3 27 H (21-25) mmol/L ABG Total CO2 28 H (19-24) mmol/L ABG O2 Saturation 99.6 H (94-97) % Hemoglobin (13.0-17.5) gm/dL Sodium 136 L (137-145) mmol/L Potassium (3.5-5.1) mmol/L Chloride (98-107) mmol/L Carbon Dioxide (22-30) mmol/L Glucose 287 H (74-99) mg/dL POC Glucose (mg/dL) (70-110) mg/dL Calcium 7.6 L (8.4-10.2) mg/dL Magnesium (1.6-2.3) mg/dL Alkaline Phosphatase (38-126) U/L Total Protein (6.3-8.2) g/dL Albumin (3.5-5.0) g/dL Crossmatch 11/15/23 Range/Units 05:52 RBC (4.30-5.90) m/uL Hgb (13.0-17.5) gm/dL Hct (39.0-53.0) % Plt Count (150-450) k/uL Lymphocytes # (1.0-4.8) k/uL PT (10.0-12.5) sec INR (<1.2) ABG pH (7.35-7.45) ABG pCO2 (35-45) mmHg ABG pO2 (83-108) mmHg ABG HCO3 (21-25) mmol/L ABG Total CO2 (19-24) mmol/L ABG O2 Saturation (94-97) % Hemoglobin (13.0-17.5) gm/dL Sodium (137-145) mmol/L Potassium (3.5-5.1) mmol/L Chloride (98-107) mmol/L Carbon Dioxide (22-30) mmol/L Glucose (74-99) mg/dL POC Glucose (mg/dL) 265 H (70-110) mg/dL Calcium (8.4-10.2) mg/dL Magnesium (1.6-2.3) mg/dL Alkaline Phosphatase (38-126) U/L Total Protein (6.3-8.2) g/dL Albumin (3.5-5.0) g/dL Crossmatch - Imaging and Cardiology Chest x-ray: report reviewed, image reviewed Assessment and Plan Assessment: Lung nodule, non-small cell lung cancer, status post bronchoscopy, left robotic assisted thorascopic surgery converted the open postero-lateral thoracotomy with left upper lobectomy, mediastinal lymph node dissection, Tobacco dependence with recent cessation in May 2023 Obstructive sleep apnea with home CPAP use Hypertension BPH Anxiety/depression Frequent marijuana use Acute blood loss anemia, hypotension due to hypovolemic shock, recovered after blood transfusion Plan: Continue chest tubes to continuous wall suction for another 24 hours, monitor drainage Will monitor for final pathology Continue current medication regimen Anesthesia to place epidural for pain control Wean and extubate as tolerated. Once extubated will encourage incentive spirometry use 10 times every hour while awake Once extubated will increase activity as tolerated Will monitor daily labs and x-rays More recommendations to follow
[2023-11-15] MEDS: VASOPRESSIN 20 UNIT in SODIUM CHLORIDE 0.9% 50 ML IV SCH (08:48)
[2023-11-15] MEDS ORDERED: FAMOTIDINE 20 MG TAB PO SCH (09:00)
[2023-11-15] MEDS: CHLORHEXIDINE GLUCONATE 15 ML CUP MUCOUS MEM SCH (09:02)
[2023-11-15] MEDS: TAMSULOSIN 0.4 MG CAP.ER.24H PO SCH (09:03)
[2023-11-15] MEDS: traMADol 50 MG TAB PO PRN (09:03)
[2023-11-15] MEDS: POTASSIUM BICARBONATE/CIT AC 20 MEQ TABLET.EFF NG-TUBE SCH (09:04)
[2023-11-15] MEDS: FINASTERIDE 5 MG TAB PO SCH (09:04)
[2023-11-15] MEDS: bisacodyL 10 MG SUPP RECTAL PRN (09:05)
[2023-11-15] MEDS: FLUTICASONE 50MCG/SPRAY NASAL 16GM EA NOSTRIL SCH (09:06)
[2023-11-15] MEDS ORDERED: fentaNYL (PF) 50 MCG/ML 2 ML AMP IVP PRN (09:34)
[2023-11-15 11:47] LABS: Glucose,Whole Blood 170 mg/dL (70-110)
[2023-11-15] MEDS: ACETAMINOPHEN TAB 325 MG TAB PO PRN (12:11)
[2023-11-15] MEDS: LOSARTAN-HCTZ 50-12.5 MG 1 EACH TAB PO SCH (12:25)
[2023-11-15] MEDS: amLODIPine 10 MG TAB PO SCH (12:26)
[2023-11-15 16:21] LABS: Glucose,Whole Blood 151 mg/dL (70-110)
[2023-11-15 19:43] LABS: INR 1.1 (<1.2); Partial Thromboplastin Time 26.3 sec (22.0-30.0); Prothrombin Time 11.4 sec (10.0-12.5)
[2023-11-15 19:46] LABS: HCT 28.4 % (39.0-53.0); HGB 9.8 gm/dL (13.0-17.5); MCH 32.1 pg (25.0-35.0); MCHC 34.6 g/dL (31.0-37.0); MCV 92.7 fL (80.0-100.0); Mean Platelet Volume 8.6; Platelet Count 135 k/uL (150-450); RBC 3.07 m/uL (4.30-5.90); RDW 14.9 % (11.5-15.5); WBC 6.6 k/uL (3.8-10.6)
[2023-11-15 20:29] LABS: Band Neutrophils % 6 %; Lymphocytes # (M) 1.06 k/uL (1.0-4.8); Monocytes # (M) 0.13 k/uL (0-1.0); Neutrophils % (M) 76 %; Nucleated Red Blood Cells 0 /100 WBC (0-0); Total Cells Counted 100
[2023-11-15 21:16] LABS: Glucose,Whole Blood 158 mg/dL (70-110)
[2023-11-15] MEDS: SENNOSIDES-DOCUSATE SODIUM 1 EACH TAB PO SCH (21:27)
[2023-11-16 04:33] LABS: HCT 27.5 % (39.0-53.0); HGB 9.2 gm/dL (13.0-17.5); MCH 31.2 pg (25.0-35.0); MCHC 33.5 g/dL (31.0-37.0); Mean Platelet Volume 8.7; Platelet Count 122 k/uL (150-450); RBC 2.96 m/uL (4.30-5.90); RDW 14.6 % (11.5-15.5); WBC 7.3 k/uL (3.8-10.6)
[2023-11-16 04:41] LABS: African American GFR (CKD) >90 (>60 ml/min/1.73 sqM); Anion Gap 3 mmol/L; Blood Urea Nitrogen 19 mg/dL (9-20); Calcium 7.5 mg/dL (8.4-10.2); Carbon Dioxide 31 mmol/L (22-30); Chloride 99 mmol/L (98-107); Glucose 137 mg/dL (74-99); Magnesium 2.3 mg/dL (1.6-2.3); Non-African American GFR(CKD) 87 (>60 ml/min/1.73 sqM); Potassium 3.9 mmol/L (3.5-5.1); Sodium 133 mmol/L (137-145)
[2023-11-16] MEDS: POTASSIUM CHLORIDE ER 20 MEQ TAB.ER PO SCH (05:31)
[2023-11-16 05:35] LABS: Glucose,Whole Blood 148 mg/dL (70-110)
--- NOTE | 2023-11-16 07:52 | XR ---
EXAMINATION TYPE: XR chest 1V portable DATE OF EXAM: 11/16/2023 Comparison: 11/15/2023 Clinical History: 73-year-old male post lobectomy Findings: 2 left-sided chest tubes in place with overlying skin matthieu. The previous left apical pneumothorax is no longer seen but there is worsening aeration at the left mid and lower lung with further volume loss in the left hemithorax. Right lung and pleural space appear relatively clear. Left heart margin obscured by adjacent pleural parenchymal opacity. Impression: 1. Two left-sided chest tubes remain in place. The previous left apical pneumothorax is no longer see n. 2. However, there is worsening aeration and increasing opacity at the left mid and lower lung with fu rther volume loss.
--- NOTE | 2023-11-16 08:12 | P.PN ---
Subjective Progress Note Date: 11/16/23 Principal diagnosis: Lung nodule, non-small cell lung cancer. Previous medical history of tobacco dependence with recent cessation in May 2023, obstructive sleep apnea with home CPAP use, hypertension, BPH, anxiety/depression, and frequent marijuana use POD #2 bronchoscopy, left robotic assisted thorascopic surgery converted the open postero-lateral thoracotomy with left upper lobectomy, mediastinal lymph node dissection, intercostal nerve block - 3 levels Acute blood loss anemia, hypotension due to hypovolemic shock, recovered after blood transfusion The patient was seen and examined sitting up in the recliner in the intensive care unit eating breakfast in no acute distress. Currently in sinus rhythm, hemodynamically stable. Left sided apical and basilar chest tubes present, apical chest tube (anterior) with 130 mL serosanguineous drainage in the last 24 hours, basilar (posterior) chest tube with 650 mL drainage in the last 24 hours. Patient did not get epidural yesterday as anesthesia was unavailable, however he states his pain is controlled on current medication regimen. No other new concerns. Objective - Vital Signs Vital signs: Vital Signs Temp 98.2 F 11/16/23 06:00 Pulse 92 11/16/23 07:00 Resp 21 11/16/23 07:00 BP 112/65 11/16/23 07:00 Pulse Ox 96 11/16/23 07:00 FiO2 40 11/15/23 10:29 Intake & Output 11/15/23 11/16/23 11/16/23 18:59 06:59 18:59 Intake Total 2489.998 100 Output Total 959 946 200 Balance 1530.998 -846 -200 Weight 103.4 kg Intake: IV 391 100 A line 21 Dextrose 5%-0.45% NaCl 1, 200 000 ml @ 50 mls/hr IV . Q20H [facility] Rx#:[id number] Invasive Line 1 30 30 Invasive Line 3 30 10 Invasive Line 4 30 30 Invasive Line 5 30 30 ceFAZolin 2 gm In Sodium 50 Chloride 0.9% 50 ml @ 100 mls/hr IVPB Q8HR [facility] Rx# :[id number] Intake, IV Titration 28.998 Amount propofoL 1,000 mg In 28.998 Empty Bag 1 bag @ 15 MCG/ KG/MIN 8.487 mls/hr IV . [id number] [facility] Rx#:[id number] Oral 2020 Tube Feeding 0 Other 50 Output: Chest Tube Drainage 444 246 L pleural CHT 1 14 86 L pleural CHT 2 430 160 Urine 515 700 200 Other: Voiding Method Urinal External Catheter # Voids 1 # Bowel Movements 0 1 ABP, PAP, CO, CI - Last Documented Arterial Blood Pressure 120/52 - Exam CONSTITUTIONAL: Appears comfortable, cooperative, no acute distress RESPIRATORY: Lungs sounds diminished bilaterally. Respirations even, nonla bored. Currently on 2 L nasal cannula with oxygen saturation 95%. Able to achieve 1000 mL on incentive spirometry. Strong cough. CARDIOVASCULAR: S1, S2 present. Regular rate and rhythm, sinus rhythm on telemetry. Palpable peripheral pulses bilaterally. No edema present. No calf pain or tenderness noted. SCDs present. GASTROINTESTINAL: Abdomen soft, nontender, nondistended. Active bowel sounds present 4 quadrants. Tolerating diet. Positive bowel movement 11/14 GENITOURINARY: Continues to void clear, yellow urine. Output 1215 mL in the last 24 hours INTEGUMENTARY: Skin is warm and dry with evidence of good perfusion. Thoracic incision well approximated and covered with dry intact dressing. NEUROLOGIC: Cranial nerves II through XII intact MUSKULOSKELETAL: Able to move all extremities, strength equal bilaterally, gait normal PSYCHIATRIC: Alert and oriented to person place and time, appropriate affect, intact judgment and insight INVASIVE LINES AND TUBES: Left apical and basilar pleural chest tubes present and connected to wall suction, airleak present in the apical chest tube. Apical (anterior) tube with 130 mL serosanguineous drainage in the last 24 hours. Basi lar (posterior) tube with 650 mL serosanguineous drainage in the last 24 hours - Allied health notes Allied health notes reviewed: nursing - Labs CBC & Chem 7: 11/16/23 04:19 11/16/23 04:15 Labs: Abnormal Lab Results - Last 24 Hours (Table) 11/12/23 11/15/23 11/15/23 Range/Units 10:42 11:45 16:19 RBC (4.30-5.90) m/uL Hgb (13.0-17.5) gm/dL Hct (39.0-53.0) % Plt Count (150-450) k/uL Sodium (137-145) mmol/L Carbon Dioxide (22-30) mmol/L Glucose (74-99) mg/dL POC Glucose (mg/dL) 170 H 151 H (70-110) mg/dL Calcium (8.4-10.2) mg/dL Crossmatch See Detail 11/15/23 11/15/23 11/16/23 Range/Units 18:39 21:15 04:15 RBC 3.07 L (4.30-5.90) m/uL Hgb 9.8 L (13.0-17.5) gm/dL Hct 28.4 L (39.0-53.0) % Plt Count 135 L (150-450) k/uL Sodium 133 L (137-145) mmol/L Carbon Dioxide 31 H (22-30) mmol/L Glucose 137 H (74-99) mg/dL POC Glucose (mg/dL) 158 H (70-110) mg/dL Calcium 7.5 L (8.4-10.2) mg/dL Crossmatch 11/16/23 11/16/23 Range/Units 04:19 05:34 RBC 2.96 L (4.30-5.90) m/uL Hgb 9.2 L (13.0-17.5) gm/dL Hct 27.5 L (39.0-53.0) % Plt Count 122 L (150-450) k/uL Sodium (137-145) mmol/L Carbon Dioxide (22-30) mmol/L Glucose (74-99) mg/dL POC Glucose (mg/dL) 148 H (70-110) mg/dL Calcium (8.4-10.2) mg/dL Crossmatch - Imaging and Cardiology Chest x-ray: report reviewed, image reviewed Assessment and Plan Assessment: Lung nodule, non-small cell lung cancer, status post bronchoscopy, left robotic assisted thorascopic surgery converted the open postero-lateral thoracotomy with left upper lobectomy, mediastinal lymph node dissection Tobacco dependence with recent cessation in May 2023 Obstructive sleep apnea with home CPAP use Hypertension BPH Anxiety/depression Frequent marijuana use Acute blood loss anemia, hypotension due to hypovolemic shock, recovered after blood transfusion Plan: Chest tubes placed to waterseal, continue to monitor drainage Will monitor for final pathology Continue current medication regimen Wean O2 as tolerated. Encourage incentive spirometry use 10 times every hour while awake Increase activity, ambulate as tolerated Will monitor daily labs and x-rays Pain control per current medication regimen GI/DVT prophylaxis Transfer orders placed for 3 S. cardiac stepdown unit, may transfer when bed available More recommendations to follow
--- NOTE | 2023-11-16 10:58 | P.PN ---
Subjective Progress Note Date: 11/16/23 Principal diagnosis: Lung cancer. Patient is a 73-year-old white male with past medical history significant for left upper lung nodule. Patient did reportedly have a PET scan, showing an FDG avid spiculated 17 x 15 mm lung nodule. He underwent Ion bronchoscopy with Dr. Myers on 10/18/2023, which was essentially nondiagnostic. He was referred to cardiothoracic surgery for diagnosis. Yesterday, patient underwent bronchoscopy with a left robotic assisted thorascopic surgery converted to open posterior lateral thoracotomy with left upper lobectomy and mediastinal lymph node dissection. The OR report indicated some nodes matted and adherent to the truncus branch of the pulmonary artery. 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 Intraoperatively, the patient was noted to have extensive blood loss, total of 3 L EBL. He was converted to open procedure. Hemostasis was able to be achieved. He has received a total of 5 units PRBCs, 1.2 L of albumin, and 3 L of crystalloid. He is currently in the intensive care unit, intubated to mechanical ventilator. He has a left lateral thoracotomy incision with 2 chest tubes with a total of 170 mL of serosanguineous output collectively. 1 has a persistent intermittent airleak. They are attached to 2 separate atriums with -20 cm H2O suction. Postoperative chest x-ray shows the endotracheal tube approximately 4 to 5 cm above the mildred, in satisfactory position. Orogastric tube likely extending in the proximal duodenum. The two left-sided chest tubes are demonstrated, with new left-sided volume loss, without visualized pneumothorax or fluid collection. Initial postoperative ventilator settings were AC, respiratory rate 16, tidal volume 500, FiO2 100%, and PEEP of 5. Follow-up ABGs included a PaO2 of greater than 420, P CO2 of 50, pH of 7.23. My supervising physician adjusted the respiratory rate to 20 and FiO2 has been cut down to 50%. Patient is currently synchronous on mechanical ventilator. He is sedated on propofol which is infusing at 40 mcg/kg/min. Levophed is also infusing at 0.05 mcg/kg/min. This is an improvement, as the patient had some substantial hypotension intraoperatively. The nurse has been able to titrate down on the Levophed after completing the above-mentioned blood products. No significant hemorrhaging from chest tubes at this time. Fluid appears serosanguineous. Most recent hemoglobin 8.9 g/dL, hematocrit 27.2, platelets 134,000. Coagulation profile includes a PT of 14, INR of 1.3, and a PTT of 26.5. Most recent available BMP: Sodium 141, potassium 3.2, chloride 107, serum bicarb 22, BUN 18, creatinine 0.73, glucose 321. Patient also has a 3M sodium bicarb in D5W infusion at 200 MLS per hour. This is a contributing to some hyperglycemia. Progress note dated November 16, 2023. 73-year-old male with a history of lung cancer. The patient was initially seen by my partner for a left upper lobe pulmonary nodule. Robotic bronchoscopy was nondiagnostic. The patient underwent a presumed robotically assisted thoracoscopic excision of the pulmonary nodule, but because of the bleeding, the patient had an open procedure, and came back to the intensive care unit on the ventilator. He was extubated the very next day. Clinically he is doing much better. He is seen today in room 260. Currently, the patient is on 2 L. He did use his home CPAP device last night. He is not on any IVs. He is postop day #2. He has [address], both with small leaks. Both chest tubes have been placed to waterseal. Current labs include a white count 7.3, hemoglobin 9.2, hematocrit 27.5, and a platelet count of 122,000. Sodium 133, potassium 3.9, chloride 99, CO2 31, BUN 19, creatinine 0.84. Glucose 148. Calcium 7.5. Chest x-ray shows 2 left-sided chest tubes, and no evidence of pneumothorax. Objective - Vital Signs Vital signs: Vital Signs Temp 98.3 F 11/16/23 08:00 Pulse 80 11/16/23 09:08 Resp 19 11/16/23 09:00 BP 109/68 11/16/23 09:00 Pulse Ox 96 11/16/23 09:10 FiO2 40 11/15/23 10:29 Intake & Output 11/15/23 11/16/23 11/16/23 18:59 06:59 18:59 Intake Total 2489.998 100 270 Output Total 959 946 560 Balance 1530.998 -846 -290 Weight 103.4 kg Intake: IV 391 100 30 A line 21 Dextrose 5%-0.45% NaCl 1, 200 000 ml @ 50 mls/hr IV . Q20H [facility] Rx#:[id number] Invasive Line 1 30 30 10 Invasive Line 3 30 10 Invasive Line 4 30 30 10 Invasive Line 5 30 30 10 ceFAZolin 2 gm In Sodium 50 Chloride 0.9% 50 ml @ 100 mls/hr IVPB Q8HR [facility] Rx# :[id number] Intake, IV Titration 28.998 Amount propofoL 1,000 mg In 28.998 Empty Bag 1 bag @ 15 MCG/ KG/MIN 8.487 mls/hr IV . [id number] [facility] Rx#:[id number] Oral 2020 240 Tube Feeding 0 Other 50 Output: Chest Tube Drainage 444 246 60 L pleural CHT 1 14 86 10 L pleural CHT 2 430 160 50 Urine 515 700 500 Other: Voiding Method Urinal External Catheter External Catheter # Voids 1 # Bowel Movements 0 1 ABP, PAP, CO, CI - Last Documented Arterial Blood Pressure 120/52 - Exam No acute distress, oriented 3. The patient is currently on 2 L of oxygen. No respiratory distress is noted. HEENT examination is grossly unremarkable. Mucous membranes are moist. No oral lesions. Neck supple. Full range of motion. No adenopathy thyromegaly or neck vein distention. Cardiovascular examination reveals regular rhythm rate. S1-S2 normal. No S3 or S4. No discernible murmur noted. Heart rate 80 bpm. Lungs reveal scattered bilateral rhonchi, left greater than right. No wheezes or crackles. Breath sounds equal. 2 L saturation 96%. Abdomen soft bowel sounds are heard. No masses or tenderness. Extremities are intact. No cyanosis clubbing or edema. Skin is without rash or lesion. Neurologic examination is brief but nonfocal. - Labs CBC & Chem 7: 11/16/23 04:19 11/16/23 04:15 Labs: Abnormal Lab Results - Last 24 Hours (Table) 11/12/23 11/15/23 11/15/23 Range/Units 10:42 11:45 16:19 RBC (4.30-5.90) m/uL Hgb (13.0-17.5) gm/dL Hct (39.0-53.0) % Plt Count (150-450) k/uL Sodium (137-145) mmol/L Carbon Dioxide (22-30) mmol/L Glucose (74-99) mg/dL POC Glucose (mg/dL) 170 H 151 H (70-110) mg/dL Calcium (8.4-10.2) mg/dL Crossmatch See Detail 11/15/23 11/15/23 11/16/23 Range/Units 18:39 21:15 04:15 RBC 3.07 L (4.30-5.90) m/uL Hgb 9.8 L (13.0-17.5) gm/dL Hct 28.4 L (39.0-53.0) % Plt Count 135 L (150-450) k/uL Sodium 133 L (137-145) mmol/L Carbon Dioxide 31 H (22-30) mmol/L Glucose 137 H (74-99) mg/dL POC Glucose (mg/dL) 158 H (70-110) mg/dL Calcium 7.5 L (8.4-10.2) mg/dL Crossmatch 11/16/23 11/16/23 Range/Units 04:19 05:34 RBC 2.96 L (4.30-5.90) m/uL Hgb 9.2 L (13.0-17.5) gm/dL Hct 27.5 L (39.0-53.0) % Plt Count 122 L (150-450) k/uL Sodium (137-145) mmol/L Carbon Dioxide (22-30) mmol/L Glucose (74-99) mg/dL POC Glucose (mg/dL) 148 H (70-110) mg/dL Calcium (8.4-10.2) mg/dL Crossmatch Assessment and Plan Assessment: Status postoperative day #2 following bronchoscopy with a left robotic assisted thorascopic surgery converted to open posterior lateral thoracotomy with left upper lobectomy and mediastinal lymph node dissection. The OR report indicated some nodes matted and adherent to the truncus branch of the pulmonary artery. Frozen section analysis reportedly revealed non-small cell carcinoma. Intraoperatively, the patient was noted to have extensive blood loss, total of 3 L EBL. He was converted to open procedure. Hemostasis was able to be achieved. He has received a total of 5 units PRBCs, 1.2 L of albumin, and 3 L of crystalloid. Patient is currently recovering in the intensive care unit. Routine postoperative ventilator management. History of left upper lung nodule, previous PET scan demonstrating a FDG avid spiculated 17 x 15 mm lung nodule. Previously underwent robotic assisted bronchoscopy with Dr. Myers 10/18/2023, which was essentially nondiagnostic. Acute blood loss anemia, hemostasis achieved intraoperatively, status post 5 units PRBCs, most recent hemoglobin 8.9 g/dL. Hypotension and hypovolemic shock, patient had a large EBL of 3 L, receiving a total of 5 units PRBCs, Hyperglycemia, likely exacerbated by sodium bicarbonate in D5W infusion. Hypokalemia and hypomagnesemia. History of hypertension. History of obstructive sleep apnea. History of marijuana use. Former tobacco smoker, quitting May 2023. Plan: Plan dated November 16, 2023. The patient is seen today in room 260. The patient is on 2 L of oxygen. He is not having any respiratory distress. He did use his home CPAP device last night. The patient's 2 chest tubes on the left, have been placed to waterseal. Labs, x-rays, and all medications are reviewed. He is postoperative day #2. He is not getting any IV fluids. He continues with the incentive spirometer. We recommend deep breathing, coughing, clearing of secretions. We will continue to follow make recommendations. Prognosis is guarded. Time with Patient: Less than 30
[2023-11-16 11:44] LABS: Glucose,Whole Blood 122 mg/dL (70-110)
[2023-11-16] MEDS: FUROSEMIDE 10 MG/ML 4 ML VIAL IV STA (15:55)
[2023-11-16 16:26] LABS: Glucose,Whole Blood 160 mg/dL (70-110)
[2023-11-16 20:10] LABS: Glucose,Whole Blood 202 mg/dL (70-110)
[2023-11-17 06:19] LABS: Glucose,Whole Blood 143 mg/dL (70-110)
--- NOTE | 2023-11-17 07:24 | XR ---
EXAMINATION TYPE: XR chest 2V DATE OF EXAM: 11/17/2023 6:29 AM CLINICAL INDICATION:Male, 73 years old with history of post lobectomy; [facility] COMPARISON: Chest radiographs from 11/16/2023. TECHNIQUE: XR chest 2V Frontal and lateral views of the chest. FINDINGS: 2 left-sided chest tubes in place with overlying skin matthieu. There is now again a left apical pneum othorax. Worsening Aeration at the left mid and lower lung with further volume loss in the left hemit horax. Right lung and pleural space appear relatively clear. Left heart margin obscured by adjacent p leural parenchymal opacity. Impression: 1. Two left-sided chest tubes remain in place. Persistent left apical pneumothorax. 2. Worsening of aeration of the left lung which has now opacified appearance.
--- NOTE | 2023-11-17 09:06 | P.PN ---
Subjective Progress Note Date: 11/17/23 Principal diagnosis: Lung nodule, non-small cell lung cancer. Previous medical history of tobacco dependence with recent cessation in May 2023, obstructive sleep apnea with home CPAP use, hypertension, BPH, anxiety/depression, and frequent marijuana use POD #3 bronchoscopy, left robotic assisted thorascopic surgery converted the open postero-lateral thoracotomy with left upper lobectomy, mediastinal lymph node dissection, intercostal nerve block - 3 levels Acute blood loss anemia, hypotension due to hypovolemic shock, recovered after blood transfusion The patient was seen and examined sitting up in the recliner on the cardiac stepdown unit eating breakfast in no acute distress. Currently in sinus rhythm, hemodynamically stable. Chest x-ray reviewed this morning, there does appear to be a somewhat expected left-sided apical pneumothorax and nursing did report that both left-sided chest tubes had air leaks last night. The patient remained asymptomatic. Chest tubes placed back to continuous wall suction this morning, no airleak seen in the posterior chest tube but intermittent airleak still seen in the anterior chest tube. Left sided apical and basilar chest tubes present, apical chest tube (anterior) with 120 mL serosanguineous drainage in the last 24 hours, basilar (posterior) chest tube with 300 mL drainage in the last 24 hours. Patient states his pain is controlled on current medication regimen. He has been ambulatory without difficulty. No other new concerns. Objective - Vital Signs Vital signs: Vital Signs Temp 98.6 F 11/17/23 03:00 Pulse 96 11/17/23 08:58 Resp 18 11/17/23 03:00 BP 99/64 11/17/23 03:00 Pulse Ox 90 L 11/17/23 03:00 FiO2 40 11/15/23 10:29 Intake & Output 11/16/23 11/17/23 11/17/23 18:59 06:59 18:59 Intake Total 1382 500 Output Total 2010 3307 Balance -629 1124 Weight 100.5 kg Intake: IV 80 20 Invasive Line 1 20 Invasive Line 4 30 10 Invasive Line 5 30 10 Oral 1302 480 Output: Chest Tube Drainage 186 152 L pleural CHT 1 26 102 L pleural CHT 2 160 50 Urine 1825 1475 Other: Voiding Method External Catheter External Catheter ABP, PAP, CO, CI - Last Documented Arterial Blood Pressure 120/52 - Exam CONSTITUTIONAL: Appears comfortable, cooperative, no acute distress RESPIRATORY: Lungs sounds diminished bilaterally. Respirations even, nonlabored. Currently on 2 L nasal cannula with oxygen saturation 90%. Able to achieve 1000 mL on incentive spirometry. Strong cough. CARDIOVASCULAR: S1, S2 present. Regular rate and rhythm, sinus rhythm on telemetry. Palpable peripheral pulses bilaterally. No edema present. No calf pain or tenderness noted. SCDs present. GASTROINTESTINAL: Abdomen soft, nontender, nondistended. Active bowel sounds present 4 quadrants. Tolerating diet. Positive bowel movement 11/14 GENITOURINARY: Continues to void clear, yellow urine. Output 3300 mL in the last 24 hours INTEGUMENTARY: Skin is warm and dry with evidence of good perfusion. Thoracic incision well approximated and covered with dry intact dressing. NEUROLOGIC: Cranial nerves II through XII intact MUSKULOSKELETAL: Able to move all extremities, strength equal bilaterally, gait normal PSYCHIATRIC: Alert and oriented to person place and time, appropriate affect, intact judgment and insight INVASIVE LINES AND TUBES: Left apical and basilar pleural chest tubes present and connected to wall suction, airleak present in the apical chest tube. Apical (anterior) tube with 120 mL serosanguineous drainage in the last 24 hours. Basilar (posterior) tube with 300 mL serosanguineous drainage in the last 24 hours - Allied health notes Allied health notes reviewed: nursing - Labs CBC & Chem 7: 11/16/23 04:19 11/16/23 04:15 Labs: Abnormal Lab Results - Last 24 Hours (Table) 11/16/23 11/16/23 11/16/23 Range/Units 11:43 16:20 20:09 POC Glucose (mg/dL) 122 H 160 H 202 H (70-110) mg/dL 11/17/23 Range/Units 06:14 POC Glucose (mg/dL) 143 H (70-110) mg/dL - Imaging and Cardiology Chest x-ray: report reviewed, image reviewed Assessment and Plan Assessment: Lung nodule, non-small cell lung cancer, status post bronchoscopy, left robotic assisted thorascopic surgery converted the open postero-lateral thoracotomy with left upper lobectomy, mediastinal lymph node dissection Tobacco dependence with recent cessation in May 2023 Obstructive sleep apnea with home CPAP use Hypertension BPH Anxiety/depression Frequent marijuana use Acute blood loss anemia, hypotension due to hypovolemic shock, recovered after blood transfusion Plan: Chest tubes placed to back to continuous wall suction, continue to monitor drainage Will monitor for final pathology Continue current medication regimen Wean O2 as tolerated. Encourage incentive spirometry use 10 times every hour while awake Increase activity, ambulate as tolerated Will monitor daily labs and x-rays Pain control per current medication regimen GI/DVT prophylaxis More recommendations to follow
[2023-11-17 09:51] LABS: HCT 24.3 % (39.0-53.0); HGB 8.2 gm/dL (13.0-17.5); MCH 31.6 pg (25.0-35.0); MCHC 33.6 g/dL (31.0-37.0); MCV 94.2 fL (80.0-100.0); Mean Platelet Volume 8.5; Platelet Count 133 k/uL (150-450); RBC 2.58 m/uL (4.30-5.90); RDW 14.6 % (11.5-15.5); WBC 7.4 k/uL (3.8-10.6)
[2023-11-17 10:26] LABS: African American GFR (CKD) >90 (>60 ml/min/1.73 sqM); Anion Gap 7 mmol/L; Blood Urea Nitrogen 27 mg/dL (9-20); Calcium 7.7 mg/dL (8.4-10.2); Carbon Dioxide 26 mmol/L (22-30); Chloride 98 mmol/L (98-107); Glucose 187 mg/dL (74-99); Non-African American GFR(CKD) 81 (>60 ml/min/1.73 sqM); Potassium 3.8 mmol/L (3.5-5.1); Sodium 131 mmol/L (137-145)
[2023-11-17 11:38] LABS: Glucose,Whole Blood 98 mg/dL (70-110)
[2023-11-17] MEDS: POTASSIUM BICARBONATE/CIT AC 20 MEQ TABLET.EFF PO ONE (12:35)
--- NOTE | 2023-11-17 13:03 | P.PN ---
Subjective Progress Note Date: 11/17/23 Principal diagnosis: Lung cancer. Patient is a 73-year-old white male with past medical history significant for left upper lung nodule. Patient did reportedly have a PET scan, showing an FDG avid spiculated 17 x 15 mm lung nodule. He underwent Ion bronchoscopy with Dr. Myers on 10/18/2023, which was essentially nondiagnostic. He was referred to cardiothoracic surgery for diagnosis. Yesterday, patient underwent bronchoscopy with a left robotic assisted thorascopic surgery converted to open posterior lateral thoracotomy with left upper lobectomy and mediastinal lymph node dissection. The OR report indicated some nodes matted and adherent to the truncus branch of the pulmonary artery. 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 Intraoperatively, the patient was noted to have extensive blood loss, total of 3 L EBL. He was converted to open procedure. Hemostasis was able to be achieved. He has received a total of 5 units PRBCs, 1.2 L of albumin, and 3 L of crystalloid. He is currently in the intensive care unit, intubated to mechanical ventilator. He has a left lateral thoracotomy incision with 2 chest tubes with a total of 170 mL of serosanguineous output collectively. 1 has a persistent intermittent airleak. They are attached to 2 separate atriums with -20 cm H2O suction. Postoperative chest x-ray shows the endotracheal tube approximately 4 to 5 cm above the mildred, in satisfactory position. Orogastric tube likely extending in the proximal duodenum. The two left-sided chest tubes are demonstrated, with new left-sided volume loss, without visualized pneumothorax or fluid collection. Initial postoperative ventilator settings were AC, respiratory rate 16, tidal volume 500, FiO2 100%, and PEEP of 5. Follow-up ABGs included a PaO2 of greater than 420, P CO2 of 50, pH of 7.23. My supervising physician adjusted the respiratory rate to 20 and FiO2 has been cut down to 50%. Patient is currently synchronous on mechanical ventilator. He is sedated on propofol which is infusing at 40 mcg/kg/min. Levophed is also infusing at 0.05 mcg/kg/min. This is an improvement, as the patient had some substantial hypotension intraoperatively. The nurse has been able to titrate down on the Levophed after completing the above-mentioned blood products. No significant hemorrhaging from chest tubes at this time. Fluid appears serosanguineous. Most recent hemoglobin 8.9 g/dL, hematocrit 27.2, platelets 134,000. Coagulation profile includes a PT of 14, INR of 1.3, and a PTT of 26.5. Most recent available BMP: Sodium 141, potassium 3.2, chloride 107, serum bicarb 22, BUN 18, creatinine 0.73, glucose 321. Patient also has a 3M sodium bicarb in D5W infusion at 200 MLS per hour. This is a contributing to some hyperglycemia. Progress note dated November 16, 2023. 73-year-old male with a history of lung cancer. The patient was initially seen by my partner for a left upper lobe pulmonary nodule. Robotic bronchoscopy was nondiagnostic. The patient underwent a presumed robotically assisted thoracoscopic excision of the pulmonary nodule, but because of the bleeding, the patient had an open procedure, and came back to the intensive care unit on the ventilator. He was extubated the very next day. Clinically he is doing much better. He is seen today in room 260. Currently, the patient is on 2 L. He did use his home CPAP device last night. He is not on any IVs. He is postop day #2. He has [address], both with small leaks. Both chest tubes have been placed to waterseal. Current labs include a white count 7.3, hemoglobin 9.2, hematocrit 27.5, and a platelet count of 122,000. Sodium 133, potassium 3.9, chloride 99, CO2 31, BUN 19, creatinine 0.84. Glucose 148. Calcium 7.5. Chest x-ray shows 2 left-sided chest tubes, and no evidence of pneumothorax. Progress note dated November 17, 2023. 73-year-old male with a history of lung cancer. The patient was initially seen by my partner, and had robotic bronchoscopy. This was for a left upper lobe pulmonary nodule. The procedure was nondiagnostic. The patient had a surgical procedure done here, and instead of having a robotically assisted thoracoscopic procedure, the patient ended up having a left-sided open procedure. The surgery was done by Dr. Brooks. The patient lost quite a bit of blood in the operating room. The patient is doing much better now. He is seen today in room 362. He is on 3 L of oxygen. No IV fluids. 2 chest tubes remain on the left side. He has leaks on both chest tubes. Current labs include a white count 7.4, hemoglobin 8.2, hematocrit 24.3, platelet count 133,000. Sodium 131, potassium 3.8, chlorides 98, CO2 26, BUN 27, and creatinine 0.94. Glucose is 98. Calcium 7.7. Chest x-ray shows 2 left-sided chest tubes in place. There is a persistent left apical pneumothorax. There is also worsened aeration of the left lung. Objective - Vital Signs Vital signs: Vital Signs Temp 98.1 F 11/17/23 08:00 Pulse 96 11/17/23 08:58 Resp 18 11/17/23 08:00 BP 96/61 11/17/23 08:00 Pulse Ox 95 11/17/23 08:00 FiO2 40 11/15/23 10:29 Intake & Output 11/16/23 11/17/23 11/17/23 18:59 06:59 18:59 Intake Total 1382 500 658 Output Total 2010 1627 Balance -629 -1127 658 Weight 100.5 kg Intake: IV 80 20 Invasive Line 1 20 Invasive Line 4 30 10 Invasive Line 5 30 10 Oral 1302 480 658 Output: Chest Tube Drainage 186 152 L pleural CHT 1 26 102 L pleural CHT 2 160 50 Urine 1825 1475 Other: Voiding Method External Catheter External Catheter ABP, PAP, CO, CI - Last Documented Arterial Blood Pressure 120/52 - Exam No acute distress, oriented 3. The patient is currently on 3 L of oxygen. No respiratory distress is noted. HEENT examination is grossly unremarkable. Mucous membranes are moist. No oral lesions. Neck supple. Full range of motion. No adenopathy thyromegaly or neck vein distention. Cardiovascular examination reveals regular rhythm rate. S1-S2 normal. No S3 or S4. No discernible murmur noted. Heart rate 96 bpm. Lungs reveal scattered bilateral rhonchi, left greater than right. No wheezes or crackles. Breath sounds equal. 3 L saturation 95 %. Abdomen soft bowel sounds are heard. No masses or tenderness. Extremities are intact. No cyanosis clubbing or edema. Skin is without rash or lesion. Neurologic examination is brief but nonfocal. - Labs CBC & Chem 7: 11/17/23 08:55 11/17/23 08:55 Labs: Abnormal Lab Results - Last 24 Hours (Table) 11/16/23 11/16/23 11/17/23 Range/Units 16:20 20:09 06:14 RBC (4.30-5.90) m/uL Hgb (13.0-17.5) gm/dL Hct (39.0-53.0) % Plt Count (150-450) k/uL Sodium (137-145) mmol/L BUN (9-20) mg/dL Glucose (74-99) mg/dL POC Glucose (mg/dL) 160 H 202 H 143 H (70-110) mg/dL Calcium (8.4-10.2) mg/dL 11/17/23 11/17/23 Range/Units 08:55 08:55 RBC 2.58 L (4.30-5.90) m/uL Hgb 8.2 L (13.0-17.5) gm/dL Hct 24.3 L (39.0-53.0) % Plt Count 133 L (150-450) k/uL Sodium 131 L (137-145) mmol/L BUN 27 H (9-20) mg/dL Glucose 187 H (74-99) mg/dL POC Glucose (mg/dL) (70-110) mg/dL Calcium 7.7 L (8.4-10.2) mg/dL Assessment and Plan Assessment: Status postoperative day #3 following bronchoscopy with a left robotic assisted thorascopic surgery converted to open posterior lateral thoracotomy with left upper lobectomy and mediastinal lymph node dissection. The OR report indicated some nodes matted and adherent to the truncus branch of the pulmonary artery. Frozen section analysis reportedly revealed non-small cell carcinoma. Intraoperatively, the patient was noted to have extensive blood loss, total of 3 L EBL. He was converted to open procedure. Hemostasis was able to be achieved. He has received a total of 5 units PRBCs, 1.2 L of albumin, and 3 L of crystalloid. Patient is currently recovering in the intensive care unit. Routine postoperative ventilator management. History of left upper lung nodule, previous PET scan demonstrating a FDG avid s piculated 17 x 15 mm lung nodule. Previously underwent robotic assisted bronchoscopy with Dr. Myers 10/18/2023, which was essentially nondiagnostic. Acute blood loss anemia, hemostasis achieved intraoperatively, status post 5 units PRBCs, most recent hemoglobin 8.9 g/dL. Hypotension and hypovolemic shock, patient had a large EBL of 3 L, receiving a total of 5 units PRBCs, Hyperglycemia, likely exacerbated by sodium bicarbonate in D5W infusion. Hypokalemia and hypomagnesemia. History of hypertension. History of obstructive sleep apnea. History of marijuana use. Former tobacco smoker, quitting May 2023. Plan: Plan dated November 16, 2023. The patient is seen today in room 260. The patient is on 2 L of oxygen. He is not having any respiratory distress. He did use his home CPAP device last night. The patient's 2 chest tubes on the left, have been placed to [facility]. Labs, x-rays, and all medications are reviewed. He is postoperative day #2. He is not getting any IV fluids. He continues with the incentive spirometer. We recommend deep breathing, coughing, clearing of secretions. We will continue to follow make recommendations. Prognosis is guarded. Plan dated November 17, 2023. The patient is seen today in room 362. He continues on oxygen at 3 L. Saturations are in the mid 90s. He is not on any IV fluids. 2 left-sided chest tubes remain. Both chest tubes show evidence of a leak. Labs, x-rays, medications are reviewed. There is a small left apical pneumothorax. Cardiothoracic surgery is aware of that. Today is postop day #3. We will continue to follow make recommendations along the way. Prognosis is guarded. Time with Patient: Less than 30
[2023-11-17 16:23] LABS: Glucose,Whole Blood 120 mg/dL (70-110)
[2023-11-17 19:58] LABS: Glucose,Whole Blood 159 mg/dL (70-110)
[2023-11-18] MEDS: ALPRAZolam 0.25 MG TAB PO PRN (00:02)
[2023-11-18 06:07] LABS: Glucose,Whole Blood 129 mg/dL (70-110)
--- NOTE | 2023-11-18 06:09 | XR ---
EXAMINATION TYPE: XR chest 1V portable DATE OF EXAM: 11/18/2023 CLINICAL HISTORY: Difficulty breathing progress study. TECHNIQUE: Single AP portable upright view of the chest is obtained. COMPARISON: Chest x-ray from one day earlier FINDINGS: Persistent left apical chest tube and additional basilar tube. Improved left-sided pneumot horax. Left-sided volume loss redemonstrated. Opacified left lung is seen. Adjacent left lower thorac ic matthieu redemonstrated. Right lung remains clear. Cardiac silhouette size within normal limits. Os seous structures are intact. IMPRESSION: Stable postsurgical change left lung from partial pneumonectomy with left-sided volume lo ss. Persistent left-sided chest tubes. Improved left-sided pneumothorax. Diffuse left lung edema and/ or atelectasis is noted.
--- NOTE | 2023-11-18 08:18 | P.PN ---
Subjective Progress Note Date: 11/18/23 Principal diagnosis: Lung nodule, non-small cell lung cancer. Previous medical history of tobacco dependence with recent cessation in May 2023, obstructive sleep apnea with home CPAP use, hypertension, BPH, anxiety/depression, and frequent marijuana use POD #4 bronchoscopy, left robotic assisted thorascopic surgery converted the open postero-lateral thoracotomy with left upper lobectomy, mediastinal lymph node dissection, intercostal nerve block - 3 levels Acute blood loss anemia, hypotension due to hypovolemic shock, recovered after blood transfusion The patient was seen and examined sitting up in the recliner on the cardiac stepdown unit eating breakfast in no acute distress. Currently in sinus rhythm, hemodynamically stable, did have systolic blood pressures in the 90s yesterday however mean arterial pressures maintained in the 70s. Chest x-ray reviewed, increased atelectasis and volume loss on the left side. Left sided apical and basilar chest tubes present, apical chest tube (anterior) with 280 mL serosanguineous drainage in the last 24 hours, basilar (posterior) chest tube with 300 mL drainage in the last 24 hours, no air leaks present this morning, tidaling present in both chest tubes with respiration. Patient states his pain is controlled on current medication regimen. He has been ambulatory without difficulty. No other new concerns. Objective - Vital Signs Vital signs: Vital Signs Temp 98.0 F 11/18/23 02:57 Pulse 90 11/18/23 08:12 Resp 18 11/18/23 02:57 BP 130/76 11/18/23 02:57 Pulse Ox 91 L 11/18/23 05:54 FiO2 40 11/15/23 10:29 Intake & Output 11/17/23 11/18/23 11/18/23 18:59 06:59 18:59 Intake Total 1738 40 Output Total 1650 3375 Balance 88 -3335 Weight 97.7 kg Intake: IV 40 Invasive Line 4 20 Invasive Line 5 20 Oral 1738 Output: Chest Tube Drainage 150 300 L pleural CHT 1 75 160 L pleural CHT 2 75 140 Urine 1500 3075 Other: Voiding Method External Catheter External Catheter ABP, PAP, CO, CI - Last Documented Arterial Blood Pressure 120/52 - Exam CONSTITUTIONAL: Appears comfortable, cooperative, no acute distress RESPIRATORY: Lungs sounds diminished bilaterally. Respirations even, nonlabored. Currently on room air with oxygen saturation low 90s. Able to achieve 1500 mL on incentive spirometry. Strong cough. CARDIOVASCULAR: S1, S2 present. Regular rate and rhythm, sinus rhythm on telemetry. Palpable peripheral pulses bilaterally. No edema present. No calf pain or tenderness noted. SCDs present. GASTROINTESTINAL: Abdomen soft, nontender, nondistended. Active bowel sounds present 4 quadrants. Tolerating diet. Positive bowel movement /6 GENITOURINARY: Continues to void clear, yellow urine. Output 4575 mL in the last 24 hours INTEGUMENTARY: Skin is warm and dry with evidence of good perfusion. Thoracic incision well approximated and covered with dry intact dressing. NEUROLOGIC: Cranial nerves II through XII intact MUSKULOSKELETAL: Able to move all extremities, strength equal bilaterally, gait normal PSYCHIATRIC: Alert and oriented to person place and time, appropriate affect, intact judgment and insight INVASIVE LINES AND TUBES: Left apical and basilar pleural chest tubes present and connected to wall suction, no airleak present. Apical (anterior) tube with 280 mL serosanguineous drainage in the last 24 hours. Basilar (posterior) tube with 300 mL serosanguineous drainage in the last 24 hours - Allied health notes Allied health notes reviewed: nursing - Labs CBC & Chem 7: 11/18/23 07:37 11/18/23 07:37 Labs: Abnormal Lab Results - Last 24 Hours (Table) 11/17/23 11/17/23 11/17/23 Range/Units 08:55 08:55 16:22 RBC 2.58 L (4.30-5.90) m/uL Hgb 8.2 L (13.0-17.5) gm/dL Hct 24.3 L (39.0-53.0) % Plt Count 133 L (150-450) k/uL Sodium 131 L (137-145) mmol/L BUN 27 H (9-20) mg/dL Glucose 187 H (74-99) mg/dL POC Glucose (mg/dL) 120 H (70-110) mg/dL Calcium 7.7 L (8.4-10.2) mg/dL 11/17/23 11/18/23 Range/Units 19:56 06:06 RBC (4.30-5.90) m/uL Hgb (13.0-17.5) gm/dL Hct (39.0-53.0) % Plt Count (150-450) k/uL Sodium (137-145) mmol/L BUN (9-20) mg/dL Glucose (74-99) mg/dL POC Glucose (mg/dL) 159 H 129 H (70-110) mg/dL Calcium (8.4-10.2) mg/dL - Imaging and Cardiology Chest x-ray: report reviewed, image reviewed Assessment and Plan Assessment: Lung nodule, non-small cell lung cancer, status post bronchoscopy, left robotic assisted thorascopic surgery converted the open postero-lateral thoracotomy with left upper lobectomy, mediastinal lymph node dissection Tobacco dependence with recent cessation in May 2023 Obstructive sleep apnea with home CPAP use Hypertension BPH Anxiety/depression Frequent marijuana use Acute blood loss anemia, hypotension due to hypovolemic shock, recovered after blood transfusion Plan: Continue chest tubes to continuous wall suction, continue to monitor drainage Will monitor for final pathology Will give IV lasix Continue current medication regimen Encourage incentive spirometry use 10 times every hour while awake Increase activity, ambulate as tolerated Will monitor daily labs and x-rays Pain control per current medication regimen GI/DVT prophylaxis More recommendations to follow
[2023-11-18 08:41] LABS: HCT 24.4 % (39.0-53.0); HGB 8.4 gm/dL (13.0-17.5); MCH 32.5 pg (25.0-35.0); MCHC 34.2 g/dL (31.0-37.0); Mean Platelet Volume 8.2; Platelet Count 156 k/uL (150-450); RBC 2.57 m/uL (4.30-5.90); RDW 14.6 % (11.5-15.5); WBC 7.7 k/uL (3.8-10.6)
[2023-11-18 08:58] LABS: African American GFR (CKD) >90 (>60 ml/min/1.73 sqM); Anion Gap 5 mmol/L; Blood Urea Nitrogen 21 mg/dL (9-20); Calcium 8.2 mg/dL (8.4-10.2); Carbon Dioxide 28 mmol/L (22-30); Chloride 101 mmol/L (98-107); Glucose 135 mg/dL (74-99); Non-African American GFR(CKD) >90 (>60 ml/min/1.73 sqM); Potassium 4.3 mmol/L (3.5-5.1); Sodium 134 mmol/L (137-145)
[2023-11-18] MEDS: FUROSEMIDE 10 MG/ML 2 ML VIAL IV ONE (11:01)
[2023-11-18 11:17] LABS: Glucose,Whole Blood 109 mg/dL (70-110)
--- NOTE | 2023-11-18 12:41 | P.PN ---
Subjective Progress Note Date: 11/18/23 Principal diagnosis: Lung cancer. Patient is a 73-year-old white male with past medical history significant for left upper lung nodule. Patient did reportedly have a PET scan, showing an FDG avid spiculated 17 x 15 mm lung nodule. He underwent Ion bronchoscopy with Dr. Myers on 10/18/2023, which was essentially nondiagnostic. He was referred to cardiothoracic surgery for diagnosis. Yesterday, patient underwent bronchoscopy with a left robotic assisted thorascopic surgery converted to open posterior lateral thoracotomy with left upper lobectomy and mediastinal lymph node dissection. The OR report indicated some nodes matted and adherent to the truncus branch of the pulmonary artery. 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 Intraoperatively, the patient was noted to have extensive blood loss, total of 3 L EBL. He was converted to open procedure. Hemostasis was able to be achieved. He has received a total of 5 units PRBCs, 1.2 L of albumin, and 3 L of crystalloid. He is currently in the intensive care unit, intubated to mechanical ventilator. He has a left lateral thoracotomy incision with 2 chest tubes with a total of 170 mL of serosanguineous output collectively. 1 has a persistent intermittent airleak. They are attached to 2 separate atriums with -20 cm H2O suction. Postoperative chest x-ray shows the endotracheal tube approximately 4 to 5 cm above the mildred, in satisfactory position. Orogastric tube likely extending in the proximal duodenum. The two left-sided chest tubes are demonstrated, with new left-sided volume loss, without visualized pneumothorax or fluid collection. Initial postoperative ventilator settings were AC, respiratory rate 16, tidal volume 500, FiO2 100%, and PEEP of 5. Follow-up ABGs included a PaO2 of greater than 420, P CO2 of 50, pH of 7.23. My supervising physician adjusted the respiratory rate to 20 and FiO2 has been cut down to 50%. Patient is currently synchronous on mechanical ventilator. He is sedated on propofol which is infusing at 40 mcg/kg/min. Levophed is also infusing at 0.05 mcg/kg/min. This is an improvement, as the patient had some substantial hypotension intraoperatively. The nurse has been able to titrate down on the Levophed after completing the above-mentioned blood products. No significant hemorrhaging from chest tubes at this time. Fluid appears serosanguineous. Most recent hemoglobin 8.9 g/dL, hematocrit 27.2, platelets 134,000. Coagulation profile includes a PT of 14, INR of 1.3, and a PTT of 26.5. Most recent available BMP: Sodium 141, potassium 3.2, chloride 107, serum bicarb 22, BUN 18, creatinine 0.73, glucose 321. Patient also has a 3M sodium bicarb in D5W infusion at 200 MLS per hour. This is a contributing to some hyperglycemia. Progress note dated November 16, 2023. 73-year-old male with a history of lung cancer. The patient was initially seen by my partner for a left upper lobe pulmonary nodule. Robotic bronchoscopy was nondiagnostic. The patient underwent a presumed robotically assisted thoracoscopic excision of the pulmonary nodule, but because of the bleeding, the patient had an open procedure, and came back to the intensive care unit on the ventilator. He was extubated the very next day. Clinically he is doing much better. He is seen today in room 260. Currently, the patient is on 2 L. He did use his home CPAP device last night. He is not on any IVs. He is postop day #2. He has [address], both with small leaks. Both chest tubes have been placed to waterseal. Current labs include a white count 7.3, hemoglobin 9.2, hematocrit 27.5, and a platelet count of 122,000. Sodium 133, potassium 3.9, chloride 99, CO2 31, BUN 19, creatinine 0.84. Glucose 148. Calcium 7.5. Chest x-ray shows 2 left-sided chest tubes, and no evidence of pneumothorax. Progress note dated November 17, 2023. 73-year-old male with a history of lung cancer. The patient was initially seen by my partner, and had robotic bronchoscopy. This was for a left upper lobe pulmonary nodule. The procedure was nondiagnostic. The patient had a surgical procedure done here, and instead of having a robotically assisted thoracoscopic procedure, the patient ended up having a left-sided open procedure. The surgery was done by Dr. Brooks. The patient lost quite a bit of blood in the operating room. The patient is doing much better now. He is seen today in room 362. He is on 3 L of oxygen. No IV fluids. 2 chest tubes remain on the left side. He has leaks on both chest tubes. Current labs include a white count 7.4, hemoglobin 8.2, hematocrit 24.3, platelet count 133,000. Sodium 131, potassium 3.8, chlorides 98, CO2 26, BUN 27, and creatinine 0.94. Glucose is 98. Calcium 7.7. Chest x-ray shows 2 left-sided chest tubes in place. There is a persistent left apical pneumothorax. There is also worsened aeration of the left lung. Progress note dated November 18, 2023. 73-year-old male with a history of lung cancer. The patient is resting comfortably, and is seen today in room 362. He continues with 2 left-sided chest tubes. Small leaks are noted. He is on oxygen, by nasal cannula at 2 L. The patient's not receiving any IV fluids. Current labs include a white count 7.7, hemoglobin 8.4, hematocrit 24.4, and platelet count 156,000. Sodium 134, potassium 4.3, chlorides 101, CO2 28, BUN 21, creatinine 0.65. Chest x-ray shows stable postsurgical changes in the left lung from the left upper lobectomy and mediastinal lymph node dissection. Chest tubes are noted. A small pneumothorax is noted. Objective - Vital Signs Vital signs: Vital Signs Temp 98.1 F 11/18/23 08:00 Pulse 90 11/18/23 08:12 Resp 18 11/18/23 08:00 BP 108/67 11/18/23 08:00 Pulse Ox 95 11/18/23 08:00 FiO2 40 11/15/23 10:29 Intake & Output 11/17/23 11/18/23 11/18/23 18:59 06:59 18:59 Intake Total 1738 40 260 Output Total 1650 3375 1050 Balance 88 -3335 -790 Weight 97.7 kg Intake: IV 40 20 Invasive Line 4 20 10 Invasive Line 5 20 10 Oral 1738 240 Output: Chest Tube Drainage 150 300 L pleural CHT 1 75 160 L pleural CHT 2 75 140 Urine 1500 3075 1050 Other: Voiding Method External Catheter External Catheter External Catheter # Voids 1 ABP, PAP, CO, CI - Last Documented Arterial Blood Pressure 120/52 - Exam No acute distress, oriented 3. The patient is currently on 2 L nasal cannula. HEENT examination is grossly unremarkable. Mucous membranes are moist. No oral lesions. Neck supple. Full range of motion. No adenopathy thyromegaly or neck vein distention. Cardiovascular examination reveals regular rhythm rate. S1-S2 normal. No S3 or S4. No discernible murmur noted. Heart rate 90 bpm. Lungs reveal scattered bilateral rhonchi, left greater than right. No wheezes or crackles. Breath sounds equal. 2 L saturation 95 %. Abdomen soft bowel sounds are heard. No masses or tenderness. Extremities are intact. No cyanosis clubbing or edema. Skin is without rash or lesion. Neurologic examination is brief but nonfocal. - Labs CBC & Chem 7: 11/18/23 07:37 11/18/23 07:37 Labs: Abnormal Lab Results - Last 24 Hours (Table) 11/17/23 11/17/23 11/18/23 Range/Units 16:22 19:56 06:06 RBC (4.30-5.90) m/uL Hgb (13.0-17.5) gm/dL Hct (39.0-53.0) % Sodium (137-145) mmol/L BUN (9-20) mg/dL Creatinine (0.66-1.25) mg/dL Glucose (74-99) mg/dL POC Glucose (mg/dL) 120 H 159 H 129 H (70-110) mg/dL Calcium (8.4-10.2) mg/dL 11/18/23 11/18/23 Range/Units 07:37 07:37 RBC 2.57 L (4.30-5.90) m/uL Hgb 8.4 L (13.0-17.5) gm/dL Hct 24.4 L (39.0-53.0) % Sodium 134 L (137-145) mmol/L BUN 21 H (9-20) mg/dL Creatinine 0.65 L (0.66-1.25) mg/dL Glucose 135 H (74-99) mg/dL POC Glucose (mg/dL) (70-110) mg/dL Calcium 8.2 L (8.4-10.2) mg/dL Assessment and Plan Assessment: Status postoperative day #4 following bronchoscopy with a left robotic assisted thorascopic surgery converted to open posterior lateral thoracotomy with left upper lobectomy and mediastinal lymph node dissection. The OR report indicated some nodes matted and adherent to the truncus branch of the pulmonary artery. Frozen section analysis reportedly revealed non-small cell carcinoma. Intraoperatively, the patient was noted to have extensive blood loss, total of 3 L EBL. He was converted to open procedure. Hemostasis was able to be achieved. He has received a total of 5 units PRBCs, 1.2 L of albumin, and 3 L of crystalloid. Patient is currently recovering in the intensive care unit. Routine postoperative ventilator management. History of left upper lung nodule, previous PET scan demonstrating a FDG avid spiculated 17 x 15 mm lung nodule. Previously underwent robotic assisted bronchoscopy with Dr. Myers 10/18/2023, which was essentially nondiagnostic. Acute blood loss anemia, hemostasis achieved intraoperatively, status post 5 units PRBCs, most recent hemoglobin 8.9 g/dL. Hypotension and hypovolemic shock, patient had a large EBL of 3 L, receiving a total of 5 units PRBCs, Hyperglycemia, likely exacerbated by sodium bicarbonate in D5W infusion. Hypokalemia and hypomagnesemia. History of hypertension. History of obstructive sleep apnea. History of marijuana use. Former tobacco smoker, quitting May 2023. Plan: Plan dated November 16, 2023. The patient is seen today in room 260. The patient is on 2 L of oxygen. He is not having any respiratory distress. He did use his home CPAP device last night. The patient's 2 chest tubes on the left, have been placed to waterseal. Labs, x-rays, and all medications are reviewed. He is postoperative day #2. He is not getting any IV fluids. He continues with the incentive spirometer. We recommend deep breathing, coughing, clearing of secretions. We will continue to follow make recommendations. Prognosis is guarded. Plan dated November 17, 2023. The patient is seen today in room 362. He continues on oxygen at 3 L. Saturations are in the mid 90s. He is not on any IV fluids. 2 left-sided chest tubes remain. Both chest tubes show evidence of a leak. Labs, x-rays, medications are reviewed. There is a small left apical pneumothorax. Cardiothoracic surgery is aware of that. Today is postop day #3. We will continue to follow make recommendations along the way. Prognosis is guarded. Plan dated November 18, 2023. The patient was seen today in room 362. He continues on oxygen at 2 L. Both left-sided chest tubes remain in place. They are not to suction. Small leaks are noted. Clinically, the patient looks stable. Labs, x-rays, medications are reviewed. The patient's chest x-rays reviewed. Today is postoperative day #4. The patient is being followed by cardiothoracic surgery as well. We will continue to follow the patient, make recommendations. We increased the use of the incentive spirometer. We also encourage deep breathing, coughing, and clearing of secretions. Time with Patient: Less than 30
[2023-11-18 16:08] LABS: Glucose,Whole Blood 129 mg/dL (70-110)
[2023-11-18 20:12] LABS: Glucose,Whole Blood 166 mg/dL (70-110)
[2023-11-19 05:47] LABS: Glucose,Whole Blood 138 mg/dL (70-110)
--- NOTE | 2023-11-19 08:17 | P.PN ---
Subjective Progress Note Date: 11/19/23 Principal diagnosis: Lung nodule, non-small cell lung cancer. Previous medical history of tobacco dependence with recent cessation in May 2023, obstructive sleep apnea with home CPAP use, hypertension, BPH, anxiety/depression, and frequent marijuana use POD #5 bronchoscopy, left robotic assisted thorascopic surgery converted the open postero-lateral thoracotomy with left upper lobectomy, mediastinal lymph node dissection, intercostal nerve block - 3 levels Acute blood loss anemia, hypotension due to hypovolemic shock, recovered after blood transfusion The patient was seen and examined sitting up in the recliner on the cardiac stepdown unit eating breakfast in no acute distress. Currently in sinus rhythm, hemodynamically stable. Chest x-ray reviewed, increased atelectasis and volume loss on the left side. Left sided apical and basilar chest tubes present, a pical chest tube (anterior) with 250 mL serosanguineous drainage in the last 24 hours, basilar (posterior) chest tube with 460 mL drainage in the last 24 hours, intermittent air leak present this morning in the apical/anterior chest tube when patient is sitting forward only. Patient states his pain is controlled on current medication regimen. He has been ambulatory without difficulty. No other new concerns. Objective - Vital Signs Vital signs: Vital Signs Temp 97.7 F 11/19/23 08:00 Pulse 88 11/19/23 08:00 Resp 18 11/19/23 08:00 BP 113/71 11/19/23 08:00 Pulse Ox 94 L 11/19/23 08:00 FiO2 40 11/15/23 10:29 Intake & Output 11/18/23 11/19/23 11/19/23 18:59 06:59 18:59 Intake Total 1198 240 Output Total 1690 1500 Balance -492 -1260 Weight 97 kg Intake: IV 60 Invasive Line 4 30 Invasive Line 5 30 Oral 1138 240 Output: Chest Tube Drainage 240 300 L pleural CHT 1 80 100 L pleural CHT 2 160 200 Urine 1450 1200 Other: Voiding Method External Catheter Urinal # Voids 1 ABP, PAP, CO, CI - Last Documented Arterial Blood Pressure 120/52 - Exam CONSTITUTIONAL: Appears comfortable, cooperative, no acute distress RESPIRATORY: Lungs sounds diminished bilaterally. Respirations even, non labored. Currently on room air with oxygen saturation low 90s. Able to achieve 2000 mL on incentive spirometry. Strong cough. CARDIOVASCULAR: S1, S2 present. Regular rate and rhythm, sinus rhythm on telemetry. Palpable peripheral pulses bilaterally. No edema present. No calf pain or tenderness noted. SCDs present. GASTROINTESTINAL: Abdomen soft, nontender, nondistended. Active bowel sounds present 4 quadrants. Tolerating diet. Positive bowel movement 11/14 GENITOURINARY: Continues to void clear, yellow urine. Output 2650 mL in the last 24 hours INTEGUMENTARY: Skin is warm and dry with evidence of good perfusion. Thoracic incision well approximated and covered with dry intact dressing. NEUROLOGIC: Cranial nerves II through XII intact MUSKULOSKELETAL: Able to move all extremities, strength equal bilaterally, gait normal PSYCHIATRIC: Alert and oriented to person place and time, appropriate affect, intact judgment and insight INVASIVE LINES AND TUBES: Left apical and basilar pleural chest tubes present and connected to wall suction, intermittent airleak present in the apical/anterior tube when patient is sitting forward. Apical (anterior) tube with 250 mL serosanguineous drainage in the last 24 hours. Basilar (posterior) tube with 460 mL serosanguineous drainage in the last 24 hours - Allied health notes Allied health notes reviewed: nursing - Labs CBC & Chem 7: 11/19/23 07:57 11/19/23 07:57 Labs: Abnormal Lab Results - Last 24 Hours (Table) 11/18/23 11/18/23 11/18/23 Range/Units 07:37 07:37 16:07 RBC 2.57 L (4.30-5.90) m/uL Hgb 8.4 L (13.0-17.5) gm/dL Hct 24.4 L (39.0-53.0) % Sodium 134 L (137-145) mmol/L BUN 21 H (9-20) mg/dL Creatinine 0.65 L (0.66-1.25) mg/dL Glucose 135 H (74-99) mg/dL POC Glucose (mg/dL) 129 H (70-110) mg/dL Calcium 8.2 L (8.4-10.2) mg/dL 11/18/23 11/19/23 Range/Units 20:10 05:44 RBC (4.30-5.90) m/uL Hgb (13.0-17.5) gm/dL Hct (39.0-53.0) % Sodium (137-145) mmol/L BUN (9-20) mg/dL Creatinine (0.66-1.25) mg/dL Glucose (74-99) mg/dL POC Glucose (mg/dL) 166 H 138 H (70-110) mg/dL Calcium (8.4-10.2) mg/dL - Imaging and Cardiology Chest x-ray: image reviewed Assessment and Plan Assessment: Lung nodule, non-small cell lung cancer, status post bronchoscopy, left robotic assisted thorascopic surgery converted the open postero-lateral thoracotomy with left upper lobectomy, mediastinal lymph node dissection Tobacco dependence with recent cessation in May 2023 Obstructive sleep apnea with home CPAP use Hypertension BPH Anxiety/depression Frequent marijuana use Acute blood loss anemia, hypotension due to hypovolemic shock, recovered after blood transfusion Plan: Continue chest tubes to continuous wall suction, continue to monitor drainage Will obtain chest CT to eval lung Will monitor for final pathology Will start oral Lasix every 8 hours Continue current medication regimen Encourage incentive spirometry use 10 times every hour while awake Increase activity, ambulate as tolerated Will monitor daily labs and x-rays Pain control per current medication regimen GI/DVT prophylaxis More recommendations to follow
[2023-11-19 08:57] LABS: HCT 26.7 % (39.0-53.0); HGB 8.6 gm/dL (13.0-17.5); MCH 31.3 pg (25.0-35.0); MCHC 32.1 g/dL (31.0-37.0); MCV 97.7 fL (80.0-100.0); Mean Platelet Volume 7.6; Platelet Count 231 k/uL (150-450); RBC 2.73 m/uL (4.30-5.90); RDW 14.2 % (11.5-15.5); WBC 6.8 k/uL (3.8-10.6)
[2023-11-19 09:11] LABS: African American GFR (CKD) >90 (>60 ml/min/1.73 sqM); Anion Gap 8 mmol/L; Blood Urea Nitrogen 21 mg/dL (9-20); Calcium 8.3 mg/dL (8.4-10.2); Carbon Dioxide 29 mmol/L (22-30); Chloride 98 mmol/L (98-107); Glucose 126 mg/dL (74-99); Non-African American GFR(CKD) 82 (>60 ml/min/1.73 sqM); Potassium 3.9 mmol/L (3.5-5.1); Sodium 135 mmol/L (137-145)
[2023-11-19] MEDS: FUROSEMIDE 20 MG TAB PO SCH (09:13)
--- NOTE | 2023-11-19 11:11 | XR ---
EXAMINATION TYPE: XR chest 1V portable DATE OF EXAM: 11/19/2023 HISTORY: Shortness of breath. COMPARISON: 11/18/2023 TECHNIQUE: Single view of the chest is submitted. FINDINGS: Demonstrated are scattered senescent parenchymal change. Status post left-sided lobectomy with left-sided chest tube in place L1 noted at the left lung base a nd a second at the left lung apex. Surgical matthieu overlying left chest. There is increased opacity throughout the left hemithorax. The right lung is clear. The heart is stable. Hilar and mediastinal structures are within normal limits. Degenerative changes are seen of the dorsal spine. IMPRESSION: 1. Stable post lumpectomy change
[2023-11-19 11:39] LABS: Glucose,Whole Blood 115 mg/dL (70-110)
--- NOTE | 2023-11-19 13:43 | CT ---
EXAMINATION TYPE: CT chest wo con CT DLP: 497.4 mGycm, Automated exposure control for dose reduction was used. DATE OF EXAM: 11/19/2023 1:16 PM COMPARISON: CT chest 10/18/2023. CLINICAL INDICATION:Male, 73 years old with history of eval left lung; PHH, Lung nodule, eval LT lung TECHNIQUE: Multiple axial images were obtained through the chest without IV contrast. Lack of IV or o ral contrast limits evaluation of solid and hollow organ viscera. . Coronal and sagittal reformats re viewed. FINDINGS: LUNGS/ PLEURA: Small to moderate size left hydropneumothorax with an anterior exam posterior located chest tubes in place. This is most prominent within the anterior aspect of the long and posterior asp ect. The right lung appears clear with some minimal right lower lobe suspect atelectasis. There is pa rtial atelectasis of the remaining left lung with consolidation identified. Groundglass opacity demon strated. Calcified granuloma demonstrated. Postsurgical changes of the left lung. AIRWAY: Patent and unremarkable.. HEART: Shifted to the left. Trace pericardial effusion. Aortic valvular calcifications. Coronary doug rial calcifications. MEDIASTINUM: Mediastinal shift to the left due to left lung volume loss status post surgery. Postsurg ical changes along the AP window site of prior conglomerate adenopathy VASCULATURE: No aortic aneurysm. MUSCULOSKELETAL: Acute fractures of the lateral left 5-7 ribs with mild displacement. No suspicious o sseous abnormality. SOFT TISSUES/LYMPH NODES: Post surgical changes of the left lateral chest wall with skin staple ident ified. Fluid and trace gas with hyperattenuating material identified along the left lateral chest wal l consistent with a hematoma. This grossly measures 5.8 x 4.7 cm (series 201, image 68). Bilateral gy necomastia. LOWER NECK: No significant findings. UPPER ABDOMEN: No significant findings. IMPRESSION: Postsurgical changes of the left lung with small to moderate size hydropneumothorax demonstrated. The re are [address] Partial atelectasis of the remaining left lung with surrounding consol idation. Additional postsurgical changes of the left lateral chest wall with hematoma identified and left lateral acute 5-7 rib fractures.
[2023-11-19 14:48] VITALS: BMI 30.7
[2023-11-19 16:05] LABS: Glucose,Whole Blood 131 mg/dL (70-110)
--- NOTE | 2023-11-19 16:47 | P.PN ---
Subjective Progress Note Date: 11/19/23 Patient is a 73-year-old white male with past medical history significant for left upper lung nodule. Patient did reportedly have a PET scan, showing an FDG avid spiculated 17 x 15 mm lung nodule. He underwent Ion bronchoscopy with Dr. Myers on 10/18/2023, which was essentially nondiagnostic. He was referred to cardiothoracic surgery for diagnosis. Yesterday, patient underwent bronchoscopy with a left robotic assisted thorascopic surgery converted to open posterior lateral thoracotomy with left upper lobectomy and mediastinal lymph node dissection. The OR report indicated some nodes matted and adherent to the truncus branch of the pulmonary artery. Frozen section analysis revealed non-sma ll cell carcinoma. Intraoperatively, the patient was noted to have extensive blood loss, total of 3 L EBL. He was converted to open procedure. Hemostasis was able to be achieved. He has received a total of 5 units PRBCs, 1.2 L of albumin, and 3 L of crystalloid. He is currently in the intensive care unit, intubated to mechanical ventilator. He has a left lateral thoracotomy incision with 2 chest tubes with a total of 170 mL of serosanguineous output collectively. 1 has a persistent intermittent airleak. They are attached to 2 separate atriums with -20 cm H2O suction. Postoperative chest x-ray shows the endotracheal tube approximately 4 to 5 cm above the mildred, in satisfactory position. Orogastric tube likely extending in the proximal duodenum. The two left-sided chest tubes are demonstrated, with new left-sided volume loss, without visualized pneumothorax or fluid collection. Initial postoperative ventilator settings were AC, respiratory rate 16, tidal volume 500, FiO2 100%, and PEEP of 5. Follow-up ABGs included a PaO2 of greater than 420, P CO2 of 50, pH of 7.23. My supervising physician adjusted the respiratory rate to 20 and FiO2 has been cut down to 50%. Patient is currently synchronous on mechanical ventilator. He is sedated on propofol which is infusing at 40 mcg/kg/min. Levophed is also infusing at 0.05 mcg/kg/min. This is an improvement, as the patient had some substantial hypotension intraoperatively. The nurse has been able to titrate down on the Levophed after completing the above-mentioned blood products. No significant hemorrhaging from chest tubes at this time. Fluid appears serosanguineous. Most recent hemoglobin 8.9 g/dL, hematocrit 27.2, platelets 134,000. Coagulation profile includes a PT of 14, INR of 1.3, and a PTT of 26.5. Most recent available BMP: Sodium 141, potassium 3.2, chloride 107, serum bicarb 22, BUN 18, creatinine 0.73, glucose 321. Patient also has a 3M sodium bicarb in D5W infusion at 200 MLS per hour. This is a contributing to some hyperglycemia. Progress note dated November 16, 2023. 73-year-old male with a history of lung cancer. The patient was initially seen by my partner for a left upper lobe pulmonary nodule. Robotic bronchoscopy was nondiagnostic. The patient underwent a presumed robotically assisted thoracoscopic excision of the pulmonary nodule, but because of the bleeding, the patient had an open procedure, and came back to the intensive care unit on the ventilator. He was extubated the very next day. Clinically he is doing much better. He is seen today in room 260. Currently, the patient is on 2 L. He did use his home CPAP device last night. He is not on any IVs. He is postop day #2. He has [address], both with small leaks. Both chest tubes have been placed to waterseal. Current labs include a white count 7.3, hemoglobin 9.2, hematocrit 27.5, and a platelet count of 122,000. Sodium 133, potassium 3.9, chloride 99, CO2 31, BUN 19, creatinine 0.84. Glucose 148. Calcium 7.5. Chest x-ray shows 2 left-sided chest tubes, and no evidence of pneumothorax. Progress note dated November 17, 2023. 73-year-old male with a history of lung cancer. The patient was initially seen by my partner, and had robotic bronchoscopy. This was for a left upper lobe pulmonary nodule. The procedure was nondiagnostic. The patient had a surgical procedure done here, and instead of having a robotically assisted thoracoscopic procedure, the patient ended up having a left-sided open procedure. The surgery was done by Dr. Brooks. The patient lost quite a bit of blood in the operating room. The patient is doing much better now. He is seen today in room 362. He is on 3 L of oxygen. No IV fluids. 2 chest tubes remain on the left side. He has leaks on both chest tubes. Current labs include a white count 7.4, hemoglobin 8.2, hematocrit 24.3, platelet count 133,000. Sodium 131, potassium 3.8, chlorides 98, CO2 26, BUN 27, and creatinine 0.94. Glucose is 98. Calcium 7.7. Chest x-ray shows 2 left-sided chest tubes in place. There is a persistent left apical pneumothorax. There is also worsened aeration of the left lung. Progress note dated November 18, 2023. 73-year-old male with a history of lung cancer. The patient is resting comfortably, and is seen today in room 362. He continues with 2 left-sided chest tubes. Small leaks are noted. He is on oxygen, by nasal cannula at 2 L. The patient's not receiving any IV fluids. Current labs include a white count 7.7, hemoglobin 8.4, hematocrit 24.4, and platelet count 156,000. Sodium 134, potassium 4.3, chlorides 101, CO2 28, BUN 21, creatinine 0.65. Chest x-ray shows stable postsurgical changes in the left lung from the left upper lobectomy and mediastinal lymph node dissection. Chest tubes are noted. A small pneumothorax is noted. On 11/19/2023, the patient is being seen for a follow-up. The patient is postop day #5 following robotic assisted open posterior lateral thoracotomy with left upper lobectomy and mediastinal lymph node dissection. The patient is currently on 2 L of oxygen by nasal cannula. He is less short of breath compared to yesterday. The output from the left posterior chest tube is low in the order of 250 cc over the past 24 hours and output from the anterior chest tube is around 460 cc over the past 24 hours. There is only intermittent air leak from the anterior chest tube. There is still ongoing volume loss in the left lung and there is incomplete reexpansion of the left lower lobe. Based on that, a CAT scan of the chest was done and the patient was found to have postsurgical changes in the left lung with a small to moderate-sized left-sided pneumothorax. The chest tubes are in place. There is partial atelectasis of the left lung with an area of consolidation. The patient also has some postsurgical changes in the left lateral chest wall with a hematoma identified in the left lateral chest wall space between fifth and seventh rib. Pain is under adequate control with using incentive spirometer. Is ambulating. Sodium is at 135, BUN is 21 with a creatinine of 0.9. The risk is 6.2 with a hemoglobin 8.6 and platelet count of 231. t Objective - Vital Signs Vital signs: Vital Signs Temp 97.7 F 11/19/23 08:00 Pulse 88 11/19/23 08:41 Resp 18 11/19/23 08:00 BP 113/71 11/19/23 08:00 Pulse Ox 98 11/19/23 08:29 FiO2 40 11/15/23 10:29 Intake & Output 11/18/23 11/19/23 11/19/23 18:59 06:59 18:59 Intake Total 1198 240 Output Total 1690 1500 250 Balance -492 -1260 -250 Weight 97 kg Intake: IV 60 Invasive Line 4 30 Invasive Line 5 30 Oral 1138 240 Output: Chest Tube Drainage 240 300 50 L pleural CHT 1 80 100 L pleural CHT 2 160 200 50 Urine 1450 1200 200 Other: Voiding Method External Catheter Urinal # Voids 1 ABP, PAP, CO, CI - Last Documented Arterial Blood Pressure 120/52 - Exam No acute distress, oriented 3. The patient is currently on 2 L nasal cannula. HEENT examination is grossly unremarkable. Mucous membranes are moist. No oral lesions. Neck supple. Full range of motion. No adenopathy thyromegaly or neck vein distention. Cardiovascular examination reveals regular rhythm rate. S1-S2 normal. No S3 or S4. No discernible murmur noted. Lungs reveal scattered bilateral rhonchi, left greater than right. No wheezes or crackles. Breath sounds equal. The patient has 2 chest tubes on the left anterior and posterior. Outputs are noted. Intermittent air leak is only seen in the anterior chest tube. Abdomen soft bowel sounds are heard. No masses or tenderness. Extremities are intact. No cyanosis clubbing or edema. Skin is without rash or lesion. Neurologic examination is brief but nonfocal. - Labs CBC & Chem 7: 11/19/23 07:57 11/19/23 07:57 Labs: Abnormal Lab Results - Last 24 Hours (Table) 11/18/23 11/18/23 11/19/23 Range/Units 16:07 20:10 05:44 RBC (4.30-5.90) m/uL Hgb (13.0-17.5) gm/dL Hct (39.0-53.0) % Sodium (137-145) mmol/L BUN (9-20) mg/dL Glucose (74-99) mg/dL POC Glucose (mg/dL) 129 H 166 H 138 H (70-110) mg/dL Calcium (8.4-10.2) mg/dL 11/19/23 11/19/23 Range/Units 07:57 07:57 RBC 2.73 L (4.30-5.90) m/uL Hgb 8.6 L (13.0-17.5) gm/dL Hct 26.7 L (39.0-53.0) % Sodium 135 L (137-145) mmol/L BUN 21 H (9-20) mg/dL Glucose 126 H (74-99) mg/dL POC Glucose (mg/dL) (70-110) mg/dL Calcium 8.3 L (8.4-10.2) mg/dL Assessment and Plan Plan: Status postoperative day #5 following bronchoscopy with a left robotic assisted thorascopic surgery converted to open posterior lateral thoracotomy with left upper lobectomy and mediastinal lymph node dissection. The OR report indicated some nodes matted and adherent to the truncus branch of the pulmonary artery. Frozen section analysis reportedly revealed non-small cell carcinoma. Intraoperatively, the patient was noted to have extensive blood loss, total of 3 L EBL. He was converted to open procedure. Hemostasis was able to be achieved. He has received a total of 5 units PRBCs, 1.2 L of albumin, and 3 L of crystalloid. Patient is currently recovering in the intensive care unit. Left lung atelectasis with a small to moderate-sized left-sided pneumothorax based on the CAT scan findings. There is persistent volume loss. There is ongoing intermittent air leak in the anterior chest tube. Output from the chest has not been noted Acute hypoxic respiratory failure currently on 2 L of oxygen by nasal cannula Shortness of breath, secondary to above, improved History of left upper lung nodule, previous PET scan demonstrating a FDG avid spiculated 17 x 15 mm lung nodule. Previously underwent robotic assisted bronchoscopy with Dr. Myers 10/18/2023, which was essentially nondiagnostic. Acute blood loss anemia, hemostasis achieved intraoperatively, status post 5 units PRBCs, most recent hemoglobin 8.6 g/dL. Hypotension and hypovolemic shock, patient had a large EBL of 3 L, receiving a total of 5 units PRBCs, currently normotensive History of hypertension. History of obstructive sleep apnea. History of marijuana use. Former tobacco smoker, quitting May 2023. Plan: Titrate O2 to maintain saturation above 90% Monitor the output from the chest tubes Monitor the airleak from the chest tube Continue incentive spirometer Reviewed the CAT scan along with the thoracic surgeon. We decided to keep the patient n.p.o. for possible bronchoscopy tomorrow specially the chest x-ray shows incomplete reexpansion of the left lung. Awaiting final pathology from lobectomy and lymph nodes Will continue to follow
[2023-11-19 20:12] LABS: Glucose,Whole Blood 160 mg/dL (70-110)
[2023-11-20 06:05] LABS: Glucose,Whole Blood 127 mg/dL (70-110)
[2023-11-20 07:40] LABS: HCT 25.3 % (39.0-53.0); HGB 8.6 gm/dL (13.0-17.5); MCH 32.3 pg (25.0-35.0); MCHC 33.9 g/dL (31.0-37.0); MCV 95.4 fL (80.0-100.0); Mean Platelet Volume 7.8; Platelet Count 258 k/uL (150-450); RBC 2.65 m/uL (4.30-5.90); RDW 14.3 % (11.5-15.5); WBC 7.2 k/uL (3.8-10.6)
--- NOTE | 2023-11-20 07:41 | XR ---
EXAMINATION TYPE: XR chest 1V portable DATE OF EXAM: 11/20/2023 HISTORY: Post lobectomy change COMPARISON: 11/19/2023 TECHNIQUE: Single view of the chest is submitted. FINDINGS: Postlumpectomy changes left lung with [address] Increasing opacification thro ughout the left hemithorax. Hyperinflation right lung. The heart is stable. Hilar and mediastinal structures are within normal limits. Degenerative changes are seen of the dorsal spine. IMPRESSION: 1. Postlumpectomy changes left lung with [address]. Increasing opacification throughout the left hemithorax. Hyperinflation right lung.
[2023-11-20 07:59] LABS: African American GFR (CKD) >90 (>60 ml/min/1.73 sqM); Anion Gap 3 mmol/L; Blood Urea Nitrogen 20 mg/dL (9-20); Calcium 8.6 mg/dL (8.4-10.2); Carbon Dioxide 33 mmol/L (22-30); Chloride 100 mmol/L (98-107); Glucose 111 mg/dL (74-99); Non-African American GFR(CKD) >90 (>60 ml/min/1.73 sqM); Potassium 4.2 mmol/L (3.5-5.1); Sodium 136 mmol/L (137-145)
--- NOTE | 2023-11-20 08:24 | P.PN ---
Subjective Progress Note Date: 11/20/23 Principal diagnosis: Lung nodule, non-small cell lung cancer. Previous medical history of tobacco dependence with recent cessation in May 2023, obstructive sleep apnea with home CPAP use, hypertension, BPH, anxiety/depression, and frequent marijuana use POD #6 bronchoscopy, left robotic assisted thorascopic surgery converted the open postero-lateral thoracotomy with left upper lobectomy, mediastinal lymph node dissection, intercostal nerve block - 3 levels Acute blood loss anemia, hypotension due to hypovolemic shock, recovered after blood transfusion The patient was seen and examined sitting up in the recliner on the cardiac stepdown unit in no acute distress. Currently in sinus rhythm, hemodynamically stable. Chest x-ray, labs reviewed. Left sided apical and basilar chest tubes present, apical chest tube (anterior) with 250 mL serosanguineous drainage in the last 24 hours, basilar (posterior) chest tube with 460 mL drainage in the last 24 hours, no air leak present this morning. Patient was made n.p.o. for bronchoscopy by Dr. Myers today. Patient states his pain is controlled on current medication regimen. He has been ambulatory without difficulty. No other new concerns. Objective - Vital Signs Vital signs: Vital Signs Temp 97.7 F 11/20/23 04:00 Pulse 81 11/20/23 04:00 Resp 18 11/20/23 04:00 BP 121/75 11/20/23 04:00 Pulse Ox 99 11/20/23 04:00 FiO2 40 11/15/23 10:29 Intake & Output 11/19/23 11/20/23 11/20/23 18:59 06:59 18:59 Intake Total 260 Output Total 725 2842 150 Balance -465 -2842 -150 Weight 97 kg 94.8 kg Intake: IV 20 Invasive Line 4 10 Invasive Line 5 10 Oral 240 Output: Chest Tube Drainage 150 557 150 L pleural CHT 1 160 70 L pleural CHT 2 150 397 80 Urine 575 2285 Other: Voiding Method Urinal # Voids 1 # Bowel Movements 1 ABP, PAP, CO, CI - Last Documented Arterial Blood Pressure 120/52 - Exam CONSTITUTIONAL: Appears comfortable, cooperative, no acute distress RESPIRATORY: Lungs sounds diminished bilaterally. Respirations even, nonlabored. Currently on 2 L nasal cannula with oxygen saturation 99%. Able to achieve 2000 mL on incentive spirometry. Strong cough. CARDIOVASCULAR: S1, S2 present. Regular rate and rhythm, sinus rhythm on telemetry. Palpable peripheral pulses bilaterally. No edema present. No calf pain or tenderness noted. SCDs present. GASTROINTESTINAL: Abdomen soft, nontender, nondistended. Active bowel sounds present 4 quadrants. Tolerating diet. Positive bowel movement 11/18 GENITOURINARY: Continues to void clear, yellow urine. Output 2635 mL in the last 24 hours INTEGUMENTARY: Skin is warm and dry with evidence of good perfusion. Thoracic incision well approximated and covered with dry intact dressing. NEUROLOGIC: Cranial nerves II through XII intact MUSKULOSKELETAL: Able to move all extremities, strength equal bilaterally, gait normal PSYCHIATRIC: Alert and oriented to person place and time, appropriate affect, intact judgment and insight INVASIVE LINES AND TUBES: Left apical and basilar pleural chest tubes present and connected to wall suction, no airleak present. Apical (anterior) tube with 250 mL serosanguineous drainage in the last 24 hours. Basilar (posterior) tube with 460 mL serosanguineous drainage in the last 24 hours - Allied health notes Allied health notes reviewed: nursing - Labs CBC & Chem 7: 11/20/23 07:05 11/20/23 07:05 Labs: Abnormal Lab Results - Last 24 Hours (Table) 11/19/23 11/19/23 11/19/23 Range/Units 07:57 07:57 11:37 RBC 2.73 L (4.30-5.90) m/uL Hgb 8.6 L (13.0-17.5) gm/dL Hct 26.7 L (39.0-53.0) % Sodium 135 L (137-145) mmol/L Carbon Dioxide (22-30) mmol/L BUN 21 H (9-20) mg/dL Glucose 126 H (74-99) mg/dL POC Glucose (mg/dL) 115 H (70-110) mg/dL Calcium 8.3 L (8.4-10.2) mg/dL 11/19/23 11/19/23 11/20/23 Range/Units 16:04 20:11 06:03 RBC (4.30-5.90) m/uL Hgb (13.0-17.5) gm/dL Hct (39.0-53.0) % Sodium (137-145) mmol/L Carbon Dioxide (22-30) mmol/L BUN (9-20) mg/dL Glucose (74-99) mg/dL POC Glucose (mg/dL) 131 H 160 H 127 H (70-110) mg/dL Calcium (8.4-10.2) mg/dL 11/20/23 11/20/23 Range/Units 07:05 07:05 RBC 2.65 L (4.30-5.90) m/uL Hgb 8.6 L (13.0-17.5) gm/dL Hct 25.3 L (39.0-53.0) % Sodium 136 L (137-145) mmol/L Carbon Dioxide 33 H (22-30) mmol/L BUN (9-20) mg/dL Glucose 111 H (74-99) mg/dL POC Glucose (mg/dL) (70-110) mg/dL Calcium (8.4-10.2) mg/dL - Imaging and Cardiology Chest x-ray: report reviewed, image reviewed Assessment and Plan Assessment: Lung nodule, non-small cell lung cancer, status post bronchoscopy, left robotic assisted thorascopic surgery converted the open postero-lateral thoracotomy with left upper lobectomy, mediastinal lymph node dissection Tobacco dependence with recent cessation in May 2023 Obstructive sleep apnea with home CPAP use Hypertension BPH Anxiety/depression Frequent marijuana use Acute blood loss anemia, hypotension due to hypovolemic shock, recovered after blood transfusion Plan: Will discontinue basilar (posterior) chest tube after bronchoscopy, continue apical (anterior) chest tube to continuous wall suction, continue to monitor drainage Patient is n.p.o. for bronchoscopy today by Dr. Myers Will monitor for final pathology Continue oral Lasix every 8 hours Continue current medication regimen Encourage incentive spirometry use 10 times every hour while awake Increase activity, ambulate as tolerated Will monitor daily labs and x-rays Pain control per current medication regimen GI/DVT prophylaxis More recommendations to follow
[2023-11-20 11:17] LABS: Glucose,Whole Blood 118 mg/dL (70-110)
--- NOTE | 2023-11-20 12:44 | P.PN ---
Subjective Progress Note Date: 11/20/23 Patient is a 73-year-old white male with past medical history significant for left upper lung nodule. Patient did reportedly have a PET scan, showing an FDG avid spiculated 17 x 15 mm lung nodule. He underwent Ion bronchoscopy with Dr. Myers on 10/18/2023, which was essentially nondiagnostic. He was referred to cardiothoracic surgery for diagnosis. Yesterday, patient underwent bronchoscopy with a left robotic assisted thorascopic surgery converted to open posterior lateral thoracotomy with left upper lobectomy and mediastinal lymph node dissection. The OR report indicated some nodes matted and adherent to the truncus branch of the pulmonary artery. Frozen section analysis revealed non-sma ll cell carcinoma. Intraoperatively, the patient was noted to have extensive blood loss, total of 3 L EBL. He was converted to open procedure. Hemostasis was able to be achieved. He has received a total of 5 units PRBCs, 1.2 L of albumin, and 3 L of crystalloid. He is currently in the intensive care unit, intubated to mechanical ventilator. He has a left lateral thoracotomy incision with 2 chest tubes with a total of 170 mL of serosanguineous output collectively. 1 has a persistent intermittent airleak. They are attached to 2 separate atriums with -20 cm H2O suction. Postoperative chest x-ray shows the endotracheal tube approximately 4 to 5 cm above the mildred, in satisfactory position. Orogastric tube likely extending in the proximal duodenum. The two left-sided chest tubes are demonstrated, with new left-sided volume loss, without visualized pneumothorax or fluid collection. Initial postoperative ventilator settings were AC, respiratory rate 16, tidal volume 500, FiO2 100%, and PEEP of 5. Follow-up ABGs included a PaO2 of greater than 420, P CO2 of 50, pH of 7.23. My supervising physician adjusted the respiratory rate to 20 and FiO2 has been cut down to 50%. Patient is currently synchronous on mechanical ventilator. He is sedated on propofol which is infusing at 40 mcg/kg/min. Levophed is also infusing at 0.05 mcg/kg/min. This is an improvement, as the patient had some substantial hypotension intraoperatively. The nurse has been able to titrate down on the Levophed after completing the above-mentioned blood products. No significant hemorrhaging from chest tubes at this time. Fluid appears serosanguineous. Most recent hemoglobin 8.9 g/dL, hematocrit 27.2, platelets 134,000. Coagulation profile includes a PT of 14, INR of 1.3, and a PTT of 26.5. Most recent available BMP: Sodium 141, potassium 3.2, chloride 107, serum bicarb 22, BUN 18, creatinine 0.73, glucose 321. Patient also has a 3M sodium bicarb in D5W infusion at 200 MLS per hour. This is a contributing to some hyperglycemia. Progress note dated November 16, 2023. 73-year-old male with a history of lung cancer. The patient was initially seen by my partner for a left upper lobe pulmonary nodule. Robotic bronchoscopy was nondiagnostic. The patient underwent a presumed robotically assisted thoracoscopic excision of the pulmonary nodule, but because of the bleeding, the patient had an open procedure, and came back to the intensive care unit on the ventilator. He was extubated the very next day. Clinically he is doing much better. He is seen today in room 260. Currently, the patient is on 2 L. He did use his home CPAP device last night. He is not on any IVs. He is postop day #2. He has [address], both with small leaks. Both chest tubes have been placed to waterseal. Current labs include a white count 7.3, hemoglobin 9.2, hematocrit 27.5, and a platelet count of 122,000. Sodium 133, potassium 3.9, chloride 99, CO2 31, BUN 19, creatinine 0.84. Glucose 148. Calcium 7.5. Chest x-ray shows 2 left-sided chest tubes, and no evidence of pneumothorax. Progress note dated November 17, 2023. 73-year-old male with a history of lung cancer. The patient was initially seen by my partner, and had robotic bronchoscopy. This was for a left upper lobe pulmonary nodule. The procedure was nondiagnostic. The patient had a surgical procedure done here, and instead of having a robotically assisted thoracoscopic procedure, the patient ended up having a left-sided open procedure. The surgery was done by Dr. Brooks. The patient lost quite a bit of blood in the operating room. The patient is doing much better now. He is seen today in room 362. He is on 3 L of oxygen. No IV fluids. 2 chest tubes remain on the left side. He has leaks on both chest tubes. Current labs include a white count 7.4, hemoglobin 8.2, hematocrit 24.3, platelet count 133,000. Sodium 131, potassium 3.8, chlorides 98, CO2 26, BUN 27, and creatinine 0.94. Glucose is 98. Calcium 7.7. Chest x-ray shows 2 left-sided chest tubes in place. There is a persistent left apical pneumothorax. There is also worsened aeration of the left lung. Progress note dated November 18, 2023. 73-year-old male with a history of lung cancer. The patient is resting comfortably, and is seen today in room 362. He continues with 2 left-sided chest tubes. Small leaks are noted. He is on oxygen, by nasal cannula at 2 L. The patient's not receiving any IV fluids. Current labs include a white count 7.7, hemoglobin 8.4, hematocrit 24.4, and platelet count 156,000. Sodium 134, potassium 4.3, chlorides 101, CO2 28, BUN 21, creatinine 0.65. Chest x-ray shows stable postsurgical changes in the left lung from the left upper lobectomy and mediastinal lymph node dissection. Chest tubes are noted. A small pneumothorax is noted. On 11/19/2023, the patient is being seen for a follow-up. The patient is postop day #5 following robotic assisted open posterior lateral thoracotomy with left upper lobectomy and mediastinal lymph node dissection. The patient is currently on 2 L of oxygen by nasal cannula. He is less short of breath compared to yesterday. The output from the left posterior chest tube is low in the order of 250 cc over the past 24 hours and output from the anterior chest tube is around 460 cc over the past 24 hours. There is only intermittent air leak from the anterior chest tube. There is still ongoing volume loss in the left lung and there is incomplete reexpansion of the left lower lobe. Based on that, a CAT scan of the chest was done and the patient was found to have postsurgical changes in the left lung with a small to moderate-sized left-sided pneumothorax. The chest tubes are in place. There is partial atelectasis of the left lung with an area of consolidation. The patient also has some postsurgical changes in the left lateral chest wall with a hematoma identified in the left lateral chest wall space between fifth and seventh rib. Pain is under adequate control with using incentive spirometer. Is ambulating. Sodium is at 135, BUN is 21 with a creatinine of 0.9. The risk is 6.2 with a hemoglobin 8.6 and platelet count of 231. t On 11/20/2023, the patient is being seen for a follow-up. The patient is sitting up in the chair and the patient is calm and comfortable. The patient is post left upper lobectomy and mediastinal lymph node dissection. Nevertheless, subsequent follow-up chest x-ray showed volume loss in the left lung. The chest x-ray from today is showing postlumpectomy changes in the left lung along with the chest tubes and anterior and posterior chest tube. There is ongoing opacification throughout the left hemithorax with incomplete expansion of the left lung. As such, the patient is currently n.p.o. and the patient will undergo a diagnostic bronchoscopy today. CAT scan from yesterday was noted and it was also positive for a moderate-sized left-sided pneumothorax. The patient is currently on 2 L of oxygen by nasal cannula. Chest tube output was noted and the patient is having a total of 250 cc of serosanguineous drainage from the anterior apical chest tube and 460 cc from the posterior chest tube. Note that the posterior chest tube has no air leak and there is some intermittent air leak involving the anterior chest tube. Nevertheless, the patient is calm and comfortable. The blood work was noted that the patient has a hemoglobin of 8.6 with a white cell count 7.2, BUN is 20 mg of 0.7 and a sodium levels at 136. Objective - Vital Signs Vital signs: Vital Signs Temp 98.4 F 11/20/23 08:30 Pulse 80 11/20/23 08:37 Resp 17 11/20/23 08:30 BP 121/78 11/20/23 08:30 Pulse Ox 100 11/20/23 08:30 FiO2 40 11/15/23 10:29 Intake & Output 11/19/23 11/20/23 11/20/23 18:59 06:59 18:59 Intake Total 260 Output Total 698 8438 150 Balance -465 -2842 -150 Weight 97 kg 94.8 kg Intake: IV 20 Invasive Line 4 10 Invasive Line 5 10 Oral 240 Output: Chest Tube Drainage 150 557 150 L pleural CHT 1 160 70 L pleural CHT 2 150 397 80 Urine 575 2285 Other: Voiding Method Urinal Urinal # Voids 1 # Bowel Movements 1 ABP, PAP, CO, CI - Last Documented Arterial Blood Pressure 120/52 - Exam No acute distress, oriented 3. The patient is currently on 2 L nasal cannula. HEENT examination is grossly unremarkable. Mucous membranes are moist. No oral lesions. Neck supple. Full range of motion. No adenopathy thyromegaly or neck vein distention. Cardiovascular examination reveals regular rhythm rate. S1-S2 normal. No S3 or S4. No discernible murmur noted. Lungs reveal scattered bilateral rhonchi, left greater than right. No wheezes or crackles. Breath sounds equal. The patient has 2 chest tubes on the left anterior and posterior. Outputs are noted. Intermittent air leak is only seen in the anterior chest tube. Abdomen soft bowel sounds are heard. No masses or tenderness. Extremities are intact. No cyanosis clubbing or edema. Skin is without rash or lesion. Neurologic examination is brief but nonfocal. - Labs CBC & Chem 7: 11/20/23 07:05 11/20/23 07:05 Labs: Abnormal Lab Results - Last 24 Hours (Table) 11/19/23 11/19/23 11/19/23 Range/Units 11:37 16:04 20:11 RBC (4.30-5.90) m/uL Hgb (13.0-17.5) gm/dL Hct (39.0-53.0) % Sodium (137-145) mmol/L Carbon Dioxide (22-30) mmol/L Glucose (74-99) mg/dL POC Glucose (mg/dL) 115 H 131 H 160 H (70-110) mg/dL 11/20/23 11/20/23 11/20/23 Range/Units 06:03 07:05 07:05 RBC 2.65 L (4.30-5.90) m/uL Hgb 8.6 L (13.0-17.5) gm/dL Hct 25.3 L (39.0-53.0) % Sodium 136 L (137-145) mmol/L Carbon Dioxide 33 H (22-30) mmol/L Glucose 111 H (74-99) mg/dL POC Glucose (mg/dL) 127 H (70-110) mg/dL Assessment and Plan Plan: Status postoperative day # 6 following bronchoscopy with a left robotic assisted thorascopic surgery converted to open posterior lateral thoracotomy with left upper lobectomy and mediastinal lymph node dissection. The OR report indicated some nodes matted and adherent to the truncus branch of the pulmonary artery. Frozen section analysis reportedly revealed non-small cell carcinoma. Intraoperatively, the patient was noted to have extensive blood loss, total of 3 L EBL. He was converted to open procedure. Hemostasis was able to be achieved. He has received a total of 5 units PRBCs, 1.2 L of albumin, and 3 L of crystalloid. Patient is currently recovering in the intensive care unit. Left lung atelectasis with a small to moderate-sized left-sided pneumothorax based on the CAT scan findings. There is persistent volume loss. There is lazaro oing intermittent air leak in the anterior chest tube. Output from the chest has not been noted, and repeat chest x-ray from today shows volume loss and ongoing opacification of the left lung. No sizable pneumothorax although this has been seen on a CAT scan of the chest that was done on 11/19/2023. Intermittent air leak through the anterior/apical chest tube. Acute hypoxic respiratory failure currently on 2 L of oxygen by nasal cannula Shortness of breath, secondary to above, improved History of left upper lung nodule, previous PET scan demonstrating a FDG avid spiculated 17 x 15 mm lung nodule. Previously underwent robotic assisted bronchoscopy with Dr. Myers 10/18/2023, which was essentially nondiagnostic. Acute blood loss anemia, hemostasis achieved intraoperatively, status post 5 units PRBCs, most recent hemoglobin is stable Hypotension and hypovolemic shock, patient had a large EBL of 3 L, receiving a total of 5 units PRBCs, currently normotensive History of hypertension. History of obstructive sleep apnea. History of marijuana use. Former tobacco smoker, quitting May 2023. Plan: Titrate O2 to maintain saturation above 90%, currently on 2 L Monitor the output from the chest tubes Monitor the airleak from the chest tube Continue incentive spirometer Reviewed the CAT scan along with the thoracic surgeon. Reviewed the follow-up chest x-ray from today and the patient is going to undergo a diagnostic bronchoscopy to evaluate the left lower lobe bronchus patency. May consider removing the posterior chest tube and this will be discussed with the cardiothoracic surgeon Awaiting final pathology from lobectomy and lymph nodes Will continue to follow
[2023-11-20] MEDS ORDERED: LIDOCAINE 2% (PF) 20 MG/ML 5 ML VIAL ONE (13:25)
[2023-11-20] MEDS ORDERED: fentaNYL (PF) 50 MCG/ML 2 ML AMP ONE (13:25)
[2023-11-20] MEDS: SODIUM CHLORIDE 0.9% 500 ML 500 ML IV ONE (13:25)
[2023-11-20] MEDS ORDERED: PROPOFOL 10 MG/ML 20 ML VIAL IV ONE (13:25)
[2023-11-20] MEDS: LIDOCAINE 2% GLYDO JELLY 6 ML APPL TOPICAL ONE (13:39)
[2023-11-20] MEDS: LIDOCAINE 2% INJ 20 MG/ML INTRATRACH ONE (13:40)
--- NOTE | 2023-11-20 15:03 | P.PCN ---
Date of Procedure: 11/20/23 Anesthesia: MAC Surgeon: Christopher Myers Pathology: other Condition: stable Disposition: floor Operative Findings: Flexible bronchoscopy Pre-op diagnosis is pulm adenocarcinoma lobectomy and lymph node dissection./Left lung atelectasis/pneumothorax with incomplete expansion of the left lung post lobectomy Postop diagnosis: Left vocal cord paralysis. Physiologic obstructing left mainstem bronchus erythematous and inflamed left upper lobe stump, with obvious rotation anatomic distortion and narrowing of the left lower lobe bronchus orifice. Right lung was within normal limits. Procedure The flexor bronchoscope was introduced through the left nostril and it was advanced into the posterior oropharynx and into the larynx. Epiglottis was identified and was within normal limits. The vocal cords were then inspected and the patient had a paralyzed left vocal cord was in a abducted position. The mobility and the function of the right vocal cord was essentially within normal limits. Rest of the upper airway structures were within normal limits. A total of 2 cc of 1% lidocaine was applied to the vocal cord and following the bronchoscope was introduced into the main trachea. The trachea was within normal limits. The bronchoscope was removed to the left and there was thick purulent mucous plug occupying the left mainstem bronchus. Therapeutic airway suctioning was done. Copious amounts of mucous plugs were aspirated from the left mainstem bronchus. The bronchoscope was introduced and to multiple locations thoracentesis to remove mucous plugs. After achieving airway patency, examination of the left mainstem bronchus was done. I did not appreciate significant anatomic distortion. I did expect to see the left upper lobe stump and a apical position. However, the stump the way it looked was rotated and it was in the 3 o'clock position and it was quite inflamed and swollen and it was encroaching on the left lower lobe bronchus orifice. I was able to identify the left lower lobe orifice. I was able to push the bronchoscope through the left lower lobe and the various segments were also inspected and there were filled with mucus. Therapeutic airway suctioning was done. Bronchial lavage of the left lower lobe was done. The bronchoscope was then moved to the right and examination of the right side was essentially within normal limits Assessment Left upper lobectomy, with significant narrowing of the left lower lobe bronchus orifice causing partial atelectasis and mucous plugging. Anatomic distortion was also noted. Evidence of left vocal cord paralysis. Case will be discussed with cardiothoracic surgery.
--- NOTE | 2023-11-20 15:14 | XR ---
EXAM: XR chest 1V portable CLINICAL INDICATION:Male, 73 years old with history of post bronch; PH COMPARISON: 11/20/2023 6:20 AM, 11/19/2023 6:16 AM TECHNIQUE: Chest single view. FINDINGS: There is improved aeration of the left lung, status post bronchoscopy, however there is some residual opacities and volume loss. There is new or increased left apical pneumothorax now up to 2.1 cm in de pth, despite the presence of a stable left thoracostomy tube with its tip in this region. There remains mild midline shift towards the left of the cardiomediastinal structures, however this a ppears improved. The right lung remains stable. Osseous structures appear unchanged. There remain numerous skin matthieu over the left lower chest sug gestive of recent surgery. IMPRESSION: * Status post bronchoscopy. * Improved aeration in the left lung with some residual opacities and residual volume loss. * New or increased small left apical pneumothorax. This despite the presence of a stable left thorac ostomy tube with its tip in this region. Continued follow-up advised.
[2023-11-20] MEDS: CEFEPIME 2 GM in SODIUM CHLORIDE 0.9% 100 ML IVPB SCH (16:10)
[2023-11-20 16:29] LABS: Glucose,Whole Blood 155 mg/dL (70-110)
[2023-11-20 20:09] LABS: Glucose,Whole Blood 129 mg/dL (70-110)
[2023-11-21 05:35] LABS: Glucose,Whole Blood 111 mg/dL (70-110)
--- NOTE | 2023-11-21 07:12 | XR ---
EXAMINATION TYPE: XR chest 1V portable DATE OF EXAM: 11/21/2023 CLINICAL HISTORY: Difficulty breathing progress study. TECHNIQUE: Single AP portable frontal view of the chest is obtained. COMPARISON: Chest x-ray from one day earlier FINDINGS: Persistent left apical chest tube with larger left apical pneumothorax now measuring near 5.2 cm versus 2.1 cm. Increasing left lower lung opacity favoring compressive atelectasis. Right lung remains clear. Cardiac silhouette size is stable. Postsurgical change to the left hemithorax is rede monstrated. Left-sided volume loss remains present with mediastinal shift. IMPRESSION: Enlarging left-sided pneumothorax with chest tube in place.
[2023-11-21 08:04] LABS: HCT 25.5 % (39.0-53.0); HGB 8.3 gm/dL (13.0-17.5); MCH 31.1 pg (25.0-35.0); MCHC 32.5 g/dL (31.0-37.0); MCV 95.7 fL (80.0-100.0); Mean Platelet Volume 7.6; Platelet Count 320 k/uL (150-450); RBC 2.67 m/uL (4.30-5.90); RDW 14.4 % (11.5-15.5); WBC 7.7 k/uL (3.8-10.6)
[2023-11-21 08:25] LABS: African American GFR (CKD) >90 (>60 ml/min/1.73 sqM); Anion Gap 3 mmol/L; Blood Urea Nitrogen 22 mg/dL (9-20); Calcium 8.4 mg/dL (8.4-10.2); Carbon Dioxide 31 mmol/L (22-30); Chloride 100 mmol/L (98-107); Glucose 121 mg/dL (74-99); Non-African American GFR(CKD) 90 (>60 ml/min/1.73 sqM); Potassium 4.2 mmol/L (3.5-5.1); Sodium 134 mmol/L (137-145)
--- NOTE | 2023-11-21 09:43 | P.PN ---
Subjective Progress Note Date: 11/21/23 Principal diagnosis: Lung nodule, non-small cell lung cancer. Previous medical history of tobacco dependence with recent cessation in May 2023, obstructive sleep apnea with home CPAP use, hypertension, BPH, anxiety/depression, and frequent marijuana use POD #7 bronchoscopy, left robotic assisted thorascopic surgery converted the open postero-lateral thoracotomy with left upper lobectomy, mediastinal lymph node dissection, intercostal nerve block - 3 levels Acute blood loss anemia, hypotension due to hypovolemic shock, recovered after blood transfusion Left lung atelectasis/pneumothorax with incomplete expansion of the left lung Left vocal cord paralysis. Physiologic obstructing left mainstem bronchus erythematous and inflamed left upper lobe stump, with obvious rotation anatomic distortion and narrowing of the left lower lobe bronchus orifice POD #[address] Myers with suctioning of mucous plugs The patient was seen and examined with Dr. Brooks sitting up at the bedside on the cardiac stepdown unit in no acute distress. Currently in sinus rhythm, hemodynamically stable. Chest x-ray, labs reviewed. Left sided apical chest tubes present, no air leak this morning, basilar chest tube was discontinued yesterday. Patient states his pain is controlled on current medication regimen. He has been ambulatory without difficulty. No other new concerns. Objective - Vital Signs Vital signs: Vital Signs Temp 96.9 F L 11/21/23 04:00 Pulse 85 11/21/23 08:42 Resp 20 11/21/23 04:00 BP 104/68 11/21/23 04:00 Pulse Ox 97 11/21/23 04:00 FiO2 40 11/15/23 10:29 Intake & Output 11/20/23 11/21/23 11/21/23 18:59 06:59 18:59 Intake Total 380 600 Output Total 1530 1300 Balance -1150 -700 Weight 94.1 kg Intake: IV 200 Oral 180 600 Output: Chest Tube Drainage 230 0 L pleural CHT 1 110 0 L pleural CHT 2 120 Urine 1300 1300 Other: Voiding Method Urinal Urinal ABP, PAP, CO, CI - Last Documented Arterial Blood Pressure 120/52 - Exam CONSTITUTIONAL: Appears comfortable, cooperative, no acute distress. Voice is hoarse RESPIRATORY: Lungs sounds diminished on the left. Respirations even, nonlabored. Currently on 2 L nasal cannula with oxygen saturation 100%. Able to achieve 0273-5997 mL on incentive spirometry. Strong cough. CARDIOVASCULAR: S1, S2 present. Regular rate and rhythm, sinus rhythm on telemetry. Palpable peripheral pulses bilaterally. No edema present. No calf pain or tenderness noted. SCDs present. GASTROINTESTINAL: Abdomen soft, nontender, nondistended. Active bowel sounds present 4 quadrants. Tolerating diet. Positive bowel movement 11/18 GENITOURINARY: Continues to void clear, yellow urine. Output 2600 mL in the last 24 hours INTEGUMENTARY: Skin is warm and dry with evidence of good perfusion. Thoracic incision well approximated, intact matthieu NEUROLOGIC: Cranial nerves II through XII intact MUSKULOSKELETAL: Able to move all extremities, strength equal bilaterally, gait normal PSYCHIATRIC: Alert and oriented to person place and time, appropriate affect, intact judgment and insight INVASIVE LINES AND TUBES: Left apical pleural chest tubes present and connected to wall suction, no airleak present. Apical (anterior) tube with 50 mL serosanguineous drainage in the last 24 hours - Allied health notes Allied health notes reviewed: nursing - Labs CBC & Chem 7: 11/21/23 07:49 11/21/23 07:49 Labs: Abnormal Lab Results - Last 24 Hours (Table) 11/20/23 11/20/23 11/20/23 Range/Units 11:15 16:28 20:08 RBC (4.30-5.90) m/uL Hgb (13.0-17.5) gm/dL Hct (39.0-53.0) % Sodium (137-145) mmol/L Carbon Dioxide (22-30) mmol/L BUN (9-20) mg/dL Glucose (74-99) mg/dL POC Glucose (mg/dL) 118 H 155 H 129 H (70-110) mg/dL 11/21/23 11/21/23 11/21/23 Range/Units 05:34 07:49 07:49 RBC 2.67 L (4.30-5.90) m/uL Hgb 8.3 L (13.0-17.5) gm/dL Hct 25.5 L (39.0-53.0) % Sodium 134 L (137-145) mmol/L Carbon Dioxide 31 H (22-30) mmol/L BUN 22 H (9-20) mg/dL Glucose 121 H (74-99) mg/dL POC Glucose (mg/dL) 111 H (70-110) mg/dL Microbiology - Last 24 Hours (Table) 11/20/23 13:15 Gram Stain - Preliminary Bronchoalviolar Lavage - Left - Imaging and Cardiology Chest x-ray: report reviewed, image reviewed Assessment and Plan Assessment: Lung nodule, non-small cell lung cancer, status post bronchoscopy, left robotic assisted thorascopic surgery converted the open postero-lateral thoracotomy with left upper lobectomy, mediastinal lymph node dissection, pathology consistent with stage IIIa adenocarcinoma Tobacco dependence with recent cessation in May 2023 Obstructive sleep apnea with home CPAP use Hypertension BPH Anxiety/depression Frequent marijuana use Acute blood loss anemia, hypotension due to hypovolemic shock, recovered after blood transfusion Left lung atelectasis/pneumothorax with incomplete expansion of the left lung, eft vocal cord paralysis, physiologic obstructing left mainstem bronchus erythematous and inflamed left upper lobe stump, with obvious rotation anatomic distortion and narrowing of the left lower lobe bronchus orifice, status post bronchoscopy by Dr. Myers with suctioning of mucous plugs Plan: Continue apical (anterior) chest tube to continuous wall suction, continue to monitor drainage Will make NPO for bronchoscopy with possible left VATS tomorrow with Dr. Brooks and Dr. Myers Continue oral Lasix every 8 hours Continue current medication regimen Encourage incentive spirometry use 10 times every hour while awake Increase activity, ambulate as tolerated Will monitor daily labs and x-rays Pain control per current medication regimen GI/DVT prophylaxis More recommendations to follow
[2023-11-21 11:28] LABS: Glucose,Whole Blood 141 mg/dL (70-110)
[2023-11-21] MEDS: ACETYLCYSTEINE 800 MG/4 ML VIAL INHALATION SCH (11:45)
[2023-11-21] MEDS: methylPREDNISolone SOD SUCCI 125 MG/2 ML VIAL IV SCH (12:25)
--- NOTE | 2023-11-21 14:36 | P.PN ---
Subjective Progress Note Date: 11/21/23 Patient is a 73-year-old white male with past medical history significant for left upper lung nodule. Patient did reportedly have a PET scan, showing an FDG avid spiculated 17 x 15 mm lung nodule. He underwent Ion bronchoscopy with Dr. Myers on 10/18/2023, which was essentially nondiagnostic. He was referred to cardiothoracic surgery for diagnosis. Yesterday, patient underwent bronchoscopy with a left robotic assisted thorascopic surgery converted to open posterior lateral thoracotomy with left upper lobectomy and mediastinal lymph node dissection. The OR report indicated some nodes matted and adherent to the truncus branch of the pulmonary artery. Frozen section analysis revealed non-sma ll cell carcinoma. Intraoperatively, the patient was noted to have extensive blood loss, total of 3 L EBL. He was converted to open procedure. Hemostasis was able to be achieved. He has received a total of 5 units PRBCs, 1.2 L of albumin, and 3 L of crystalloid. He is currently in the intensive care unit, intubated to mechanical ventilator. He has a left lateral thoracotomy incision with 2 chest tubes with a total of 170 mL of serosanguineous output collectively. 1 has a persistent intermittent airleak. They are attached to 2 separate atriums with -20 cm H2O suction. Postoperative chest x-ray shows the endotracheal tube approximately 4 to 5 cm above the mildred, in satisfactory position. Orogastric tube likely extending in the proximal duodenum. The two left-sided chest tubes are demonstrated, with new left-sided volume loss, without visualized pneumothorax or fluid collection. Initial postoperative ventilator settings were AC, respiratory rate 16, tidal volume 500, FiO2 100%, and PEEP of 5. Follow-up ABGs included a PaO2 of greater than 420, P CO2 of 50, pH of 7.23. My supervising physician adjusted the respiratory rate to 20 and FiO2 has been cut down to 50%. Patient is currently synchronous on mechanical ventilator. He is sedated on propofol which is infusing at 40 mcg/kg/min. Levophed is also infusing at 0.05 mcg/kg/min. This is an improvement, as the patient had some substantial hypotension intraoperatively. The nurse has been able to titrate down on the Levophed after completing the above-mentioned blood products. No significant hemorrhaging from chest tubes at this time. Fluid appears serosanguineous. Most recent hemoglobin 8.9 g/dL, hematocrit 27.2, platelets 134,000. Coagulation profile includes a PT of 14, INR of 1.3, and a PTT of 26.5. Most recent available BMP: Sodium 141, potassium 3.2, chloride 107, serum bicarb 22, BUN 18, creatinine 0.73, glucose 321. Patient also has a 3M sodium bicarb in D5W infusion at 200 MLS per hour. This is a contributing to some hyperglycemia. Progress note dated November 16, 2023. 73-year-old male with a history of lung cancer. The patient was initially seen by my partner for a left upper lobe pulmonary nodule. Robotic bronchoscopy was nondiagnostic. The patient underwent a presumed robotically assisted thoracoscopic excision of the pulmonary nodule, but because of the bleeding, the patient had an open procedure, and came back to the intensive care unit on the ventilator. He was extubated the very next day. Clinically he is doing much better. He is seen today in room 260. Currently, the patient is on 2 L. He did use his home CPAP device last night. He is not on any IVs. He is postop day #2. He has [address], both with small leaks. Both chest tubes have been placed to waterseal. Current labs include a white count 7.3, hemoglobin 9.2, hematocrit 27.5, and a platelet count of 122,000. Sodium 133, potassium 3.9, chloride 99, CO2 31, BUN 19, creatinine 0.84. Glucose 148. Calcium 7.5. Chest x-ray shows 2 left-sided chest tubes, and no evidence of pneumothorax. Progress note dated November 17, 2023. 73-year-old male with a history of lung cancer. The patient was initially seen by my partner, and had robotic bronchoscopy. This was for a left upper lobe pulmonary nodule. The procedure was nondiagnostic. The patient had a surgical procedure done here, and instead of having a robotically assisted thoracoscopic procedure, the patient ended up having a left-sided open procedure. The surgery was done by Dr. Brooks. The patient lost quite a bit of blood in the operating room. The patient is doing much better now. He is seen today in room 362. He is on 3 L of oxygen. No IV fluids. 2 chest tubes remain on the left side. He has leaks on both chest tubes. Current labs include a white count 7.4, hemoglobin 8.2, hematocrit 24.3, platelet count 133,000. Sodium 131, potassium 3.8, chlorides 98, CO2 26, BUN 27, and creatinine 0.94. Glucose is 98. Calcium 7.7. Chest x-ray shows 2 left-sided chest tubes in place. There is a persistent left apical pneumothorax. There is also worsened aeration of the left lung. Progress note dated November 18, 2023. 73-year-old male with a history of lung cancer. The patient is resting comfortably, and is seen today in room 362. He continues with 2 left-sided chest tubes. Small leaks are noted. He is on oxygen, by nasal cannula at 2 L. The patient's not receiving any IV fluids. Current labs include a white count 7.7, hemoglobin 8.4, hematocrit 24.4, and platelet count 156,000. Sodium 134, potassium 4.3, chlorides 101, CO2 28, BUN 21, creatinine 0.65. Chest x-ray shows stable postsurgical changes in the left lung from the left upper lobectomy and mediastinal lymph node dissection. Chest tubes are noted. A small pneumothorax is noted. On 11/19/2023, the patient is being seen for a follow-up. The patient is postop day #5 following robotic assisted open posterior lateral thoracotomy with left upper lobectomy and mediastinal lymph node dissection. The patient is currently on 2 L of oxygen by nasal cannula. He is less short of breath compared to yesterday. The output from the left posterior chest tube is low in the order of 250 cc over the past 24 hours and output from the anterior chest tube is around 460 cc over the past 24 hours. There is only intermittent air leak from the anterior chest tube. There is still ongoing volume loss in the left lung and there is incomplete reexpansion of the left lower lobe. Based on that, a CAT scan of the chest was done and the patient was found to have postsurgical changes in the left lung with a small to moderate-sized left-sided pneumothorax. The chest tubes are in place. There is partial atelectasis of the left lung with an area of consolidation. The patient also has some postsurgical changes in the left lateral chest wall with a hematoma identified in the left lateral chest wall space between fifth and seventh rib. Pain is under adequate control with using incentive spirometer. Is ambulating. Sodium is at 135, BUN is 21 with a creatinine of 0.9. The risk is 6.2 with a hemoglobin 8.6 and platelet count of 231. t On 11/20/2023, the patient is being seen for a follow-up. The patient is sitting up in the chair and the patient is calm and comfortable. The patient is post left upper lobectomy and mediastinal lymph node dissection. Nevertheless, subsequent follow-up chest x-ray showed volume loss in the left lung. The chest x-ray from today is showing postlumpectomy changes in the left lung along with the chest tubes and anterior and posterior chest tube. There is ongoing opacification throughout the left hemithorax with incomplete expansion of the left lung. As such, the patient is currently n.p.o. and the patient will undergo a diagnostic bronchoscopy today. CAT scan from yesterday was noted and it was also positive for a moderate-sized left-sided pneumothorax. The patient is currently on 2 L of oxygen by nasal cannula. Chest tube output was noted and the patient is having a total of 250 cc of serosanguineous drainage from the anterior apical chest tube and 460 cc from the posterior chest tube. Note that the posterior chest tube has no air leak and there is some intermittent air leak involving the anterior chest tube. Nevertheless, the patient is calm and comfortable. The blood work was noted that the patient has a hemoglobin of 8.6 with a white cell count 7.2, BUN is 20 mg of 0.7 and a sodium levels at 136. On 11/21/2023, the patient has no specific complaints. He continues to be hoarse and left vocal cord paralysis was noted on his bronchoscopy that was done yesterday. The same time, there was significant narrowing of the orifice of the left lower lobe bronchus. Discussed the case with the thoracic surgeon. Repeat bronchoscopy is to be done tomorrow. Meanwhile, the patient's chest x-ray from today shows a left-sided pneumothorax and a left-sided chest tube is in place. Noted the posterior chest tube was removed yesterday. The size of the pneumothorax is larger compared to yesterday. There is no evidence of any air leak in his chest tube. The patient is currently postop day #. There is a bronchoscopy yesterday, copious amount of mucous plugs were also identified in the left mainstem patient was started on IV cefepime. The stump was intact. Nevertheless, there was significant swelling and encroachment on the left lower lobe orifice and based on that we opted to start the patient on steroids. Repeat bronchoscopy to be done tomorrow. No other new complaints otherwise for now. Afebrile. Hemodynamically stable. Using incentive spirometer. Objective - Vital Signs Vital signs: Vital Signs Temp 98.2 F 11/21/23 08:40 Pulse 85 11/21/23 08:42 Resp 19 11/21/23 08:40 BP 115/66 11/21/23 08:40 Pulse Ox 100 11/21/23 08:40 FiO2 40 11/15/23 10:29 Intake & Output 11/20/23 11/21/23 11/21/23 18:59 06:59 18:59 Intake Total 380 600 Output Total 1530 1300 500 Balance -1150 -700 -500 Weight 94.1 kg Intake: IV 200 Oral 180 600 Output: Chest Tube Drainage 230 0 0 L pleural CHT 1 110 0 0 L pleural CHT 2 120 Urine 1300 1300 500 Other: Voiding Method Urinal Urinal Urinal ABP, PAP, CO, CI - Last Documented Arterial Blood Pressure 120/52 - Exam No acute distress, oriented 3. The patient is currently on 2 L nasal cannula. HEENT examination is grossly unremarkable. Mucous membranes are moist. No oral lesions. Neck supple. Full range of motion. No adenopathy thyromegaly or neck vein distention. Cardiovascular examination reveals regular rhythm rate. S1-S2 normal. No S3 or S4. No discernible murmur noted. Lungs reveal scattered bilateral rhonchi, left greater than right. No wheezes or crackles. Breath sounds equal. The patient has a single left anterior chest tube. Diminished breath on the left compared to the right. No evidence of any air leak. Abdomen soft bowel sounds are heard. No masses or tenderness. Extremities are intact. No cyanosis clubbing or edema. Skin is without rash or lesion. Neurologic examination is brief but nonfocal. - Labs CBC & Chem 7: 11/21/23 07:49 11/21/23 07:49 Labs: Abnormal Lab Results - Last 24 Hours (Table) 11/20/23 11/20/23 11/20/23 Range/Units 11:15 16:28 20:08 RBC (4.30-5.90) m/uL Hgb (13.0-17.5) gm/dL Hct (39.0-53.0) % Sodium (137-145) mmol/L Carbon Dioxide (22-30) mmol/L BUN (9-20) mg/dL Glucose (74-99) mg/dL POC Glucose (mg/dL) 118 H 155 H 129 H (70-110) mg/dL 11/21/23 11/21/23 11/21/23 Range/Units 05:34 07:49 07:49 RBC 2.67 L (4.30-5.90) m/uL Hgb 8.3 L (13.0-17.5) gm/dL Hct 25.5 L (39.0-53.0) % Sodium 134 L (137-145) mmol/L Carbon Dioxide 31 H (22-30) mmol/L BUN 22 H (9-20) mg/dL Glucose 121 H (74-99) mg/dL POC Glucose (mg/dL) 111 H (70-110) mg/dL Microbiology - Last 24 Hours (Table) 11/20/23 13:15 Gram Stain - Preliminary Bronchoalviolar Lavage - Left Assessment and Plan Plan: Status postoperative day # 7 following bronchoscopy with a left robotic assisted thorascopic surgery converted to open posterior lateral thoracotomy with left upper lobectomy and mediastinal lymph node dissection. The OR report indicated some nodes matted and adherent to the truncus branch of the pulmonary artery. Frozen section analysis reportedly revealed non-small cell carcinoma. Intraoperatively, the patient was noted to have extensive blood loss, total of 3 L EBL. He was converted to open procedure. Hemostasis was able to be achieved. He has received a total of 5 units PRBCs, 1.2 L of albumin, and 3 L of crystalloid. Left lung atelectasis with a small to moderate-sized left-sided pneumothorax based on the CAT scan findings. There is persistent volume loss. There is ongoing intermittent air leak in the anterior chest tube. Output from the chest has not been noted, and repeat chest x-ray from today shows volume loss and ongoing opacification of the left lung. A sizable pneumothorax although this has been seen on a CAT scan of the chest that was done on 11/19/2023. Repeat chest x-ray from today shows enlargement of the left sided pneumothorax. There is no evidence of any ongoing air leak. Bronchoscopy was done and there was significant narrowing and encroachment of the left lower lobe bronchial orifice. There is also a swollen distal left mainstem bronchus and the stump which is infected causing significant amount of engorgement in the left lower lobe bronc hus orifice. Acute hypoxic respiratory failure currently on 2 L of oxygen by nasal cannula Shortness of breath, secondary to above, improved Stage III non-small cell lung cancer/adenocarcinoma. 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 History of obstructive sleep apnea. History of marijuana use. Former tobacco smoker, quitting May 2023. Plan: Titrate O2 to maintain saturation above 90%, currently on 2 L Monitor the output from the chest tube Monitor the airleak from the chest tube, currently none Continue incentive spirometer Reviewed the CAT scan along with the thoracic surgeon. Reviewed the br onchoscopy findings with the thoracic surgeon. Will repeat bronchoscopy in a.m. to evaluate The patient's of the left lower lobe bronchus Continue IV Solu-Medrol Continue IV cefepime Will continue to follow
[2023-11-21 16:19] LABS: Glucose,Whole Blood 190 mg/dL (70-110)
[2023-11-21 20:28] LABS: Glucose,Whole Blood 225 mg/dL (70-110)
[2023-11-21] MEDS: ACETYLCYSTEINE 800 MG/4 ML VIAL ONE (22:00)
[2023-11-22 05:47] LABS: Glucose,Whole Blood 149 mg/dL (70-110)
[2023-11-22 11:10] LABS: HCT 26.5 % (39.0-53.0); HGB 8.4 gm/dL (13.0-17.5); MCH 30.9 pg (25.0-35.0); MCHC 31.6 g/dL (31.0-37.0); MCV 97.7 fL (80.0-100.0); Mean Platelet Volume 7.5; Platelet Count 396 k/uL (150-450); RBC 2.71 m/uL (4.30-5.90); RDW 14.1 % (11.5-15.5); WBC 9.1 k/uL (3.8-10.6)
[2023-11-22 11:18] LABS: African American GFR (CKD) >90 (>60 ml/min/1.73 sqM); Anion Gap 7 mmol/L; Blood Urea Nitrogen 29 mg/dL (9-20); Calcium 8.7 mg/dL (8.4-10.2); Carbon Dioxide 27 mmol/L (22-30); Chloride 102 mmol/L (98-107); Glucose 108 mg/dL (74-99); Non-African American GFR(CKD) 89 (>60 ml/min/1.73 sqM); Potassium 4.5 mmol/L (3.5-5.1); Sodium 136 mmol/L (137-145)
[2023-11-22 11:34] LABS: Glucose,Whole Blood 144 mg/dL (70-110)
[2023-11-22] MEDS ORDERED: MIDAZOLAM 2 MG/2 ML VIAL ONE (14:03)
[2023-11-22] MEDS ORDERED: KETAMINE HCL IN 0.9 % NACL 50 MG/5 ML SYRINGE ONE (14:03)
[2023-11-22] MEDS ORDERED: LIDOCAINE 1% INJ 10MG/ML (20 ML MDV) ONE (14:03)
[2023-11-22] MEDS ORDERED: fentaNYL (PF) 50 MCG/ML 2 ML AMP ONE (14:03)
[2023-11-22] MEDS ORDERED: PROPOFOL 10 MG/ML 20 ML VIAL IV ONE (14:03)
[2023-11-22] MEDS: IV FLUID CONTINUATION 1,000 ML IV ONE (14:14)
--- NOTE | 2023-11-22 14:51 | P.PN ---
Subjective Progress Note Date: 11/22/23 Patient is a 73-year-old white male with past medical history significant for left upper lung nodule. Patient did reportedly have a PET scan, showing an FDG avid spiculated 17 x 15 mm lung nodule. He underwent Ion bronchoscopy with Dr. Myers on 10/18/2023, which was essentially nondiagnostic. He was referred to cardiothoracic surgery for diagnosis. Yesterday, patient underwent bronchoscopy with a left robotic assisted thorascopic surgery converted to open posterior lateral thoracotomy with left upper lobectomy and mediastinal lymph node dissection. The OR report indicated some nodes matted and adherent to the truncus branch of the pulmonary artery. Frozen section analysis revealed non-sma ll cell carcinoma. Intraoperatively, the patient was noted to have extensive blood loss, total of 3 L EBL. He was converted to open procedure. Hemostasis was able to be achieved. He has received a total of 5 units PRBCs, 1.2 L of albumin, and 3 L of crystalloid. He is currently in the intensive care unit, intubated to mechanical ventilator. He has a left lateral thoracotomy incision with 2 chest tubes with a total of 170 mL of serosanguineous output collectively. 1 has a persistent intermittent airleak. They are attached to 2 separate atriums with -20 cm H2O suction. Postoperative chest x-ray shows the endotracheal tube approximately 4 to 5 cm above the mildred, in satisfactory position. Orogastric tube likely extending in the proximal duodenum. The two left-sided chest tubes are demonstrated, with new left-sided volume loss, without visualized pneumothorax or fluid collection. Initial postoperative ventilator settings were AC, respiratory rate 16, tidal volume 500, FiO2 100%, and PEEP of 5. Follow-up ABGs included a PaO2 of greater than 420, P CO2 of 50, pH of 7.23. My supervising physician adjusted the respiratory rate to 20 and FiO2 has been cut down to 50%. Patient is currently synchronous on mechanical ventilator. He is sedated on propofol which is infusing at 40 mcg/kg/min. Levophed is also infusing at 0.05 mcg/kg/min. This is an improvement, as the patient had some substantial hypotension intraoperatively. The nurse has been able to titrate down on the Levophed after completing the above-mentioned blood products. No significant hemorrhaging from chest tubes at this time. Fluid appears serosanguineous. Most recent hemoglobin 8.9 g/dL, hematocrit 27.2, platelets 134,000. Coagulation profile includes a PT of 14, INR of 1.3, and a PTT of 26.5. Most recent available BMP: Sodium 141, potassium 3.2, chloride 107, serum bicarb 22, BUN 18, creatinine 0.73, glucose 321. Patient also has a 3M sodium bicarb in D5W infusion at 200 MLS per hour. This is a contributing to some hyperglycemia. Progress note dated November 16, 2023. 73-year-old male with a history of lung cancer. The patient was initially seen by my partner for a left upper lobe pulmonary nodule. Robotic bronchoscopy was nondiagnostic. The patient underwent a presumed robotically assisted thoracoscopic excision of the pulmonary nodule, but because of the bleeding, the patient had an open procedure, and came back to the intensive care unit on the ventilator. He was extubated the very next day. Clinically he is doing much better. He is seen today in room 260. Currently, the patient is on 2 L. He did use his home CPAP device last night. He is not on any IVs. He is postop day #2. He has [address], both with small leaks. Both chest tubes have been placed to waterseal. Current labs include a white count 7.3, hemoglobin 9.2, hematocrit 27.5, and a platelet count of 122,000. Sodium 133, potassium 3.9, chloride 99, CO2 31, BUN 19, creatinine 0.84. Glucose 148. Calcium 7.5. Chest x-ray shows 2 left-sided chest tubes, and no evidence of pneumothorax. Progress note dated November 17, 2023. 73-year-old male with a history of lung cancer. The patient was initially seen by my partner, and had robotic bronchoscopy. This was for a left upper lobe pulmonary nodule. The procedure was nondiagnostic. The patient had a surgical procedure done here, and instead of having a robotically assisted thoracoscopic procedure, the patient ended up having a left-sided open procedure. The surgery was done by Dr. Brooks. The patient lost quite a bit of blood in the operating room. The patient is doing much better now. He is seen today in room 362. He is on 3 L of oxygen. No IV fluids. 2 chest tubes remain on the left side. He has leaks on both chest tubes. Current labs include a white count 7.4, hemoglobin 8.2, hematocrit 24.3, platelet count 133,000. Sodium 131, potassium 3.8, chlorides 98, CO2 26, BUN 27, and creatinine 0.94. Glucose is 98. Calcium 7.7. Chest x-ray shows 2 left-sided chest tubes in place. There is a persistent left apical pneumothorax. There is also worsened aeration of the left lung. Progress note dated November 18, 2023. 73-year-old male with a history of lung cancer. The patient is resting comfortably, and is seen today in room 362. He continues with 2 left-sided chest tubes. Small leaks are noted. He is on oxygen, by nasal cannula at 2 L. The patient's not receiving any IV fluids. Current labs include a white count 7.7, hemoglobin 8.4, hematocrit 24.4, and platelet count 156,000. Sodium 134, potassium 4.3, chlorides 101, CO2 28, BUN 21, creatinine 0.65. Chest x-ray shows stable postsurgical changes in the left lung from the left upper lobectomy and mediastinal lymph node dissection. Chest tubes are noted. A small pneumothorax is noted. On 11/19/2023, the patient is being seen for a follow-up. The patient is postop day #5 following robotic assisted open posterior lateral thoracotomy with left upper lobectomy and mediastinal lymph node dissection. The patient is currently on 2 L of oxygen by nasal cannula. He is less short of breath compared to yesterday. The output from the left posterior chest tube is low in the order of 250 cc over the past 24 hours and output from the anterior chest tube is around 460 cc over the past 24 hours. There is only intermittent air leak from the anterior chest tube. There is still ongoing volume loss in the left lung and there is incomplete reexpansion of the left lower lobe. Based on that, a CAT scan of the chest was done and the patient was found to have postsurgical changes in the left lung with a small to moderate-sized left-sided pneumothorax. The chest tubes are in place. There is partial atelectasis of the left lung with an area of consolidation. The patient also has some postsurgical changes in the left lateral chest wall with a hematoma identified in the left lateral chest wall space between fifth and seventh rib. Pain is under adequate control with using incentive spirometer. Is ambulating. Sodium is at 135, BUN is 21 with a creatinine of 0.9. The risk is 6.2 with a hemoglobin 8.6 and platelet count of 231. t On 11/20/2023, the patient is being seen for a follow-up. The patient is sitting up in the chair and the patient is calm and comfortable. The patient is post left upper lobectomy and mediastinal lymph node dissection. Nevertheless, subsequent follow-up chest x-ray showed volume loss in the left lung. The chest x-ray from today is showing postlumpectomy changes in the left lung along with the chest tubes and anterior and posterior chest tube. There is ongoing opacification throughout the left hemithorax with incomplete expansion of the left lung. As such, the patient is currently n.p.o. and the patient will undergo a diagnostic bronchoscopy today. CAT scan from yesterday was noted and it was also positive for a moderate-sized left-sided pneumothorax. The patient is currently on 2 L of oxygen by nasal cannula. Chest tube output was noted and the patient is having a total of 250 cc of serosanguineous drainage from the anterior apical chest tube and 460 cc from the posterior chest tube. Note that the posterior chest tube has no air leak and there is some intermittent air leak involving the anterior chest tube. Nevertheless, the patient is calm and comfortable. The blood work was noted that the patient has a hemoglobin of 8.6 with a white cell count 7.2, BUN is 20 mg of 0.7 and a sodium levels at 136. On 11/21/2023, the patient has no specific complaints. He continues to be hoarse and left vocal cord paralysis was noted on his bronchoscopy that was done yesterday. The same time, there was significant narrowing of the orifice of the left lower lobe bronchus. Discussed the case with the thoracic surgeon. Repeat bronchoscopy is to be done tomorrow. Meanwhile, the patient's chest x-ray from today shows a left-sided pneumothorax and a left-sided chest tube is in place. Noted the posterior chest tube was removed yesterday. The size of the pneumothorax is larger compared to yesterday. There is no evidence of any air leak in his chest tube. The patient is currently postop day #. There is a bronchoscopy yesterday, copious amount of mucous plugs were also identified in the left mainstem patient was started on IV cefepime. The stump was intact. Nevertheless, there was significant swelling and encroachment on the left lower lobe orifice and based on that we opted to start the patient on steroids. Repeat bronchoscopy to be done tomorrow. No other new complaints otherwise for now. Afebrile. Hemodynamically stable. Using incentive spirometer. On today's evaluation of 11/22/2023, the patient is on room air oxygen. He has no specific complaints. I had a lengthy discussion regarding his case along with the thoracic surgeon, Dr. Brooks and the plan is to repeat the bronchoscopy and do another airway inspection to reevaluate the patency of the left lower lobe bronchus. As mentioned, the stump is very close to the orifice of the left lower lobe bronchus and there was anatomic obstruction with significant narrowing and excess amount of respiratory secretions that were suctioned out from the distal left mainstem bronchus. The patient is currently on IV antibiotics and the patient is currently on IV cefepime. He was started also on IV steroids. His blood work from today shows a white cell count of 9.1 with a hemoglobin of 8.4, BUN is 29 and a creatinine of 0.7. He remains hoarse and this is attributed to a left vocal cord paralysis as the patient had significant malignant lymphadenopathy in the AP window involving the recurrent laryngeal nerve on the left. Objective - Vital Signs Vital signs: Vital Signs Temp 97.9 F 11/22/23 09:00 Pulse 74 11/22/23 11:24 Resp 17 11/22/23 09:00 BP 113/71 11/22/23 09:00 Pulse Ox 95 11/22/23 09:00 FiO2 40 11/15/23 10:29 Intake & Output 11/21/23 11/22/23 11/22/23 18:59 06:59 18:59 Intake Total 860 120 50 Output Total 1420 3300 0 Balance -560 -3180 50 Weight 93.1 kg Intake: IV 50 Oral 860 120 Output: Chest Tube Drainage 120 100 0 L pleural CHT 1 120 100 0 Urine 1300 3200 Other: Voiding Method Urinal Urinal Urinal ABP, PAP, CO, CI - Last Documented Arterial Blood Pressure 120/52 - Exam No acute distress, oriented 3. The patient is currently on room air oxygen. His voice remains hoarse. HEENT examination is grossly unremarkable. Mucous membranes are moist. No oral lesions. Neck supple. Full range of motion. No adenopathy thyromegaly or neck vein distention. Cardiovascular examination reveals regular rhythm rate. S1-S2 normal. No S3 or S4. No discernible murmur noted. Lungs reveal scattered bilateral rhonchi, left greater than right. No wheezes or crackles. Breath sounds equal. The patient has a single left anterior chest tube. Diminished breath on the left compared to the right. No evidence of any air leak. Abdomen soft bowel sounds are heard. No masses or tenderness. Extremities are intact. No cyanosis clubbing or edema. Skin is without rash or lesion. Neurologic examination is brief but nonfocal. - Labs CBC & Chem 7: 11/22/23 09:50 11/22/23 09:50 Labs: Abnormal Lab Results - Last 24 Hours (Table) 11/21/23 11/21/23 11/22/23 Range/Units 16:17 20:26 05:45 RBC (4.30-5.90) m/uL Hgb (13.0-17.5) gm/dL Hct (39.0-53.0) % Sodium (137-145) mmol/L BUN (9-20) mg/dL Glucose (74-99) mg/dL POC Glucose (mg/dL) 190 H 225 H 149 H (70-110) mg/dL 11/22/23 11/22/23 11/22/23 Range/Units 09:50 09:50 11:32 RBC 2.71 L (4.30-5.90) m/uL Hgb 8.4 L (13.0-17.5) gm/dL Hct 26.5 L (39.0-53.0) % Sodium 136 L (137-145) mmol/L BUN 29 H (9-20) mg/dL Glucose 108 H (74-99) mg/dL POC Glucose (mg/dL) 144 H (70-110) mg/dL Microbiology - Last 24 Hours (Table) 11/20/23 13:15 Gram Stain - Final Bronchoalviolar Lavage - Left Bronchial Washings Culture - Final Assessment and Plan Plan: Status postoperative day # 8 following bronchoscopy with a left robotic assisted thorascopic surgery converted to open posterior lateral thoracotomy with left upper lobectomy and mediastinal lymph node dissection. The OR report indicated some nodes matted and adherent to the truncus branch of the pulmonary artery. Frozen section analysis reportedly revealed non-small cell carcinoma. The final pathology was consistent with, adenocarcinoma, stage III. Left lung atelectasis with a small to moderate-sized left-sided pneumothorax based on the CAT scan findings. There is persistent volume loss. There is ongoing intermittent air leak in the anterior chest tube. Output from the chest has not been noted, and repeat chest x-ray from today shows volume loss and ongoing opacification of the left lung. A sizable pneumothorax although this has been seen on a CAT scan of the chest that was done on 11/19/2023. Repeat c hest x-ray from today shows enlargement of the left sided pneumothorax. There is no evidence of any ongoing air leak. Bronchoscopy was done and there was significant narrowing and encroachment of the left lower lobe bronchial orifice. There is also a swollen distal left mainstem bronchus and the stump which is infected causing significant amount of engorgement in the left lower lobe bronchus orifice. The bronchial lavage from the left lower lobe is still pending and the patient is currently on IV cefepime. The patient is also on IV Solu-Medrol. Acute hypoxic respiratory failure currently on 2 L of oxygen by nasal cannula Shortness of breath, secondary to above, improved Stage III non-small cell lung cancer/adenocarcinoma. 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 History of obstructive sleep apnea. History of marijuana use. Former tobacco smoker, quitting May 2023. Plan: Titrate O2 to maintain saturation above 90%, currently on room air oxygen Monitor the output from the chest tube Monitor the airleak from the chest tube, currently none Continue incentive spirometer Reviewed the CAT scan along with the thoracic surgeon. Reviewed the bronchoscopy findings with the thoracic surgeon. Will repeat the bronchoscopy today. Obtain a chest x-ray following the bronchoscopy. Awaiting cultures from the left lower lobe Continue IV Solu-Medrol Continue IV cefepime Will continue to follow
--- NOTE | 2023-11-22 14:54 | P.PCN ---
Date of Procedure: 11/22/23 Operative Findings: Anesthesia: MAC Surgeon: Christopher Myers Pathology: other Condition: stable Disposition: floor Operative Findings: Flexible bronchoscopy Pre-op diagnosis is pulm adenocarcinoma lobectomy and lymph node dissection./Left lung atelectasis/pneumothorax with incomplete expansion of the left lung post lobectomy Postop diagnosis: Left vocal cord paralysis. Physiologic obstructing left mainstem bronchus erythematous and inflamed left upper lobe stump, with obvious rotation anatomic distortion and narrowing of the left lower lobe bronchus orifice. The left upper lobe stump is very close to the orifice of the left lower lobe bronchus causing encroachment and anatomic narrowing. Respiratory secretions were less compared to the earlier bronchoscope. Limited mucous plugs that were suctioned out without any major difficulties. Right lung was within normal limits. Procedure The flexor bronchoscope was introduced through the left nostril and it was advanced into the posterior oropharynx and into the larynx. Epiglottis was identified and was within normal limits. The vocal cords were then inspected and the patient had a paralyzed left vocal cord was in a abducted position. The mobility and the function of the right vocal cord was essentially within normal limits. Rest of the upper airway structures were within normal limits. A total of 2 cc of 1% lidocaine was applied to the vocal cord and following the bronchoscope was introduced into the main trachea. The trachea was within normal limits. The bronchoscope was removed to the left and there was thick purulent mucous plug occupying the left mainstem bronchus. Therapeutic airway suctioning was done. Copious amounts of mucous plugs were aspirated from the left mainstem bronchus. The bronchoscope was introduced and to multiple locations thoracentesis to remove mucous plugs. After achieving airway patency, examination of the left mainstem bronchus was done. I did not appreciate significant anatomic distortion. I did expect to see the left upper lobe stump and a apical position. However, the stump the way it looked was rotated and it was in the 3 o'clock position and it was quite inflamed and swollen and it was encroaching on the left lower lobe bronchus orifice. I was able to identify the left lower lobe orifice. I was able to push the bronchoscope through the left lower lobe and the various segments were also inspected and there were filled with mucus. Upon further careful inspection, the area seems to be less inflamed and erythematous. I believe that the left upper lobe stump is very close to the mildred causing anatomic narrowing of the left lower lobe bronchus. Respiratory secretions were essentially less compared to the earlier bronchoscope that was done on 11/20/2023. Therapeutic airway suctioning was done. Assessment Left upper lobectomy, with significant narrowing of the left lower lobe bronchus orifice causing partial atelectasis and mucous plugging. The amount of respiratory secretions were less compared to the earlier bronchoscopy. Anatomic distortion was also noted. It is likely that the stump is very close to the mildred causing mass effect and anatomic narrowing of the left lower lobe bronchus. There is also evidence of left vocal cord paralysis. Dr. Brooks was present during the procedure.
[2023-11-22] MEDS: methylPREDNISolone SOD SUCCI 125 MG/2 ML VIAL IV SCH (16:24)
[2023-11-22 16:33] LABS: Glucose,Whole Blood 198 mg/dL (70-110)
--- NOTE | 2023-11-22 18:44 | XR ---
EXAM: XR chest 1V portable CLINICAL INDICATION:Male, 73 years old with history of Status post bronchoscopy; [facility] COMPARISON: 11/21/2023 TECHNIQUE: Chest single view. FINDINGS: Stable position left apical chest tube. Left pneumothorax has significantly diminished, now small. Decreased left pleural basilar pleural-parenchymal opacity likely pleural effusion with adjacent atel ectasis/airspace disease. Right lung and pleural space remain stable and clear. Mild central congestion again noted. Cardiomediastinal silhouette is partially obscured on the left, grossly unremarkable. 3 appears sligh tly shifted towards the left in keeping with brain volume loss. No acute bony pathology. Mild degenerative changes. IMPRESSION: Decreased left apical pneumothorax. Stable position of left apical chest tube.
[2023-11-22 20:26] LABS: Glucose,Whole Blood 167 mg/dL (70-110)
[2023-11-23 06:02] LABS: Glucose,Whole Blood 163 mg/dL (70-110)
--- NOTE | 2023-11-23 07:49 | XR ---
EXAMINATION TYPE: XR chest 1V portable DATE OF EXAM: 11/23/2023 COMPARISON: 11/22/2023 HISTORY: Postlobectomy TECHNIQUE: Single frontal view of the chest is obtained. FINDINGS: Chest tube and left-sided surgical matthieu. There is a 5% left apical pneumothorax with le ft-sided consolidation and small effusion. Right lung clear. Heart size stable. Degenerative changes of the spine. IMPRESSION: 1. Left-sided consolidation and pleural effusion with volume loss compatible lobectomy. 2. Small 5% left apical pneumothorax.
--- NOTE | 2023-11-23 09:40 | P.PN ---
Subjective Progress Note Date: 11/23/23 Principal diagnosis: Lung nodule, non-small cell lung cancer. Previous medical history of tobacco dependence with recent cessation in May 2023, obstructive sleep apnea with home CPAP use, hypertension, BPH, anxiety/depression, and frequent marijuana use POD #8 bronchoscopy, left robotic assisted thorascopic surgery converted the open postero-lateral thoracotomy with left upper lobectomy, mediastinal lymph node dissection, intercostal nerve block - 3 levels Acute blood loss anemia, hypotension due to hypovolemic shock, recovered after blood transfusion Left lung atelectasis/pneumothorax with incomplete expansion of the left lung Left vocal cord paralysis. Physiologic obstructing left mainstem bronchus erythematous and inflamed left upper lobe stump, with obvious rotation anatomic distortion and narrowing of the left lower lobe bronchus orifice POD #[address] Myers with suctioning of mucous plugs The patient was seen and examined with Dr. Brooks sitting up at the bedside on the cardiac stepdown unit in no acute distress. Currently in sinus rhythm, hemodynamically stable. Chest x-ray, labs reviewed. Left sided apical chest tubes present, no air leak this morning. Patient states his pain is controlled on current medication regimen. He has been ambulatory without difficulty. He underwent bronchoscopy again yesterday by Dr. Myers. Plan is for bronchoscopy again over the weekend by Dr. Myers, hopefully will be able to discontinue chest tube on Sunday and discharge to home. No other new concerns. Objective - Vital Signs Vital signs: Vital Signs Temp 97.7 F 11/23/23 08:26 Pulse 70 11/23/23 08:26 Resp 20 11/23/23 08:26 BP 114/64 11/23/23 08:26 Pulse Ox 95 11/23/23 08:26 FiO2 40 11/15/23 10:29 Intake & Output 11/22/23 11/23/23 11/23/23 18:59 06:59 18:59 Intake Total 508 240 128 Output Total 1720 1230 0 Balance -1212 -990 128 Weight 92 kg Intake: IV 50 10 Invasive Line 8 10 Oral 458 240 118 Output: Chest Tube Drainage 70 30 0 L pleural CHT 1 70 30 0 Urine 1650 1200 Other: Voiding Method Urinal Urinal # Voids 3 1 ABP, PAP, CO, CI - Last Documented Arterial Blood Pressure 120/52 - Exam CONSTITUTIONAL: Appears comfortable, cooperative, no acute distress. Voice is hoarse RESPIRATORY: Lungs sounds diminished on the left. Respirations even, nonlabored. Currently on room air with oxygen saturation 96%. Able to achieve 2000 mL on incentive spirometry. Strong cough. CARDIOVASCULAR: S1, S2 present. Regular rate and rhythm, sinus rhythm on telemetry. Palpable peripheral pulses bilaterally. No edema present. No calf pain or tenderness noted. SCDs present. GASTROINTESTINAL: Abdomen soft, nontender, nondistended. Active bowel sounds present 4 quadrants. Tolerating diet. Positive bowel movement 6/10 GENITOURINARY: Continues to void clear, yellow urine. Output 2850 mL in the last 24 hours INTEGUMENTARY: Skin is warm and dry with evidence of good perfusion. Thoracic incision well approximated, intact matthieu NEUROLOGIC: Cranial nerves II through XII intact MUSKULOSKELETAL: Able to move all extremities, strength equal bilaterally, gait normal PSYCHIATRIC: Alert and oriented to person place and time, appropriate affect, intact judgment and insight INVASIVE LINES AND TUBES: Left apical pleural chest tubes present and connected to wall suction, no airleak present. Apical (anterior) tube with 100 mL serosanguineous drainage in the last 24 hours - Allied health notes Allied health notes reviewed: nursing - Labs CBC & Chem 7: 11/22/23 09:50 11/22/23 09:50 Labs: Abnormal Lab Results - Last 24 Hours (Table) 11/22/23 11/22/23 11/22/23 Range/Units 09:50 09:50 11:32 RBC 2.71 L (4.30-5.90) m/uL Hgb 8.4 L (13.0-17.5) gm/dL Hct 26.5 L (39.0-53.0) % Sodium 136 L (137-145) mmol/L BUN 29 H (9-20) mg/dL Glucose 108 H (74-99) mg/dL POC Glucose (mg/dL) 144 H (70-110) mg/dL 11/22/23 11/22/23 11/23/23 Range/Units 16:32 20:24 06:00 RBC (4.30-5.90) m/uL Hgb (13.0-17.5) gm/dL Hct (39.0-53.0) % Sodium (137-145) mmol/L BUN (9-20) mg/dL Glucose (74-99) mg/dL POC Glucose (mg/dL) 198 H 167 H 163 H (70-110) mg/dL Microbiology - Last 24 Hours (Table) 11/20/23 13:15 Gram Stain - Final Bronchoalviolar Lavage - Left Bronchial Washings Culture - Final - Imaging and Cardiology Chest x-ray: report reviewed, image reviewed Assessment and Plan Assessment: Lung nodule, non-small cell lung cancer, status post bronchoscopy, left robotic assisted thorascopic surgery converted the open postero-lateral thoracotomy with left upper lobectomy, mediastinal lymph node dissection, pathology consistent with stage IIIa adenocarcinoma Tobacco dependence with recent cessation in May 2023 Obstructive sleep apnea with home CPAP use Hypertension BPH Anxiety/depression Frequent marijuana use Acute blood loss anemia, hypotension due to hypovolemic shock, recovered after blood transfusion Left lung atelectasis/pneumothorax with incomplete expansion of the left lung, eft vocal cord paralysis, physiologic obstructing left mainstem bronchus erythematous and inflamed left upper lobe stump, with obvious rotation anatomic distortion and narrowing of the left lower lobe bronchus orifice, status post bronchoscopy by Dr. Myers with suctioning of mucous plugs Plan: Continue apical (anterior) chest tube to continuous wall suction, continue to monitor drainage Bronchoscopy to be repeated this week and by Dr. Myers Continue antibiotics, continue Solu-Medrol every 8 hours Continue oral Lasix every 8 hours Continue current medication regimen Encourage incentive spirometry use 10 times every hour while awake Increase activity, ambulate as tolerated Will monitor daily labs and x-rays Pain control per current medication regimen GI/DVT prophylaxis More recommendations to follow
[2023-11-23 10:37] LABS: HCT 27.3 % (39.0-53.0); HGB 8.4 gm/dL (13.0-17.5); Hypochromasia Slight; MCH 30.5 pg (25.0-35.0); MCHC 30.9 g/dL (31.0-37.0); MCV 98.5 fL (80.0-100.0); Mean Platelet Volume 7.7; Platelet Count 521 k/uL (150-450); RBC 2.77 m/uL (4.30-5.90); RDW 14.1 % (11.5-15.5); WBC 10.3 k/uL (3.8-10.6)
[2023-11-23 10:46] LABS: African American GFR (CKD) >90 (>60 ml/min/1.73 sqM); Anion Gap 7 mmol/L; Blood Urea Nitrogen 32 mg/dL (9-20); Calcium 8.8 mg/dL (8.4-10.2); Carbon Dioxide 27 mmol/L (22-30); Chloride 103 mmol/L (98-107); Glucose 122 mg/dL (74-99); Non-African American GFR(CKD) 81 (>60 ml/min/1.73 sqM); Potassium 4.6 mmol/L (3.5-5.1); Sodium 137 mmol/L (137-145)
[2023-11-23 11:53] LABS: Glucose,Whole Blood 151 mg/dL (70-110)
--- NOTE | 2023-11-23 16:08 | P.PN ---
Subjective Progress Note Date: 11/23/23 Patient is a 73-year-old white male with past medical history significant for left upper lung nodule. Patient did reportedly have a PET scan, showing an FDG avid spiculated 17 x 15 mm lung nodule. He underwent Ion bronchoscopy with Dr. Myers on 10/18/2023, which was essentially nondiagnostic. He was referred to cardiothoracic surgery for diagnosis. Yesterday, patient underwent bronchoscopy with a left robotic assisted thorascopic surgery converted to open posterior lateral thoracotomy with left upper lobectomy and mediastinal lymph node dissection. The OR report indicated some nodes matted and adherent to the truncus branch of the pulmonary artery. Frozen section analysis revealed non-sma ll cell carcinoma. Intraoperatively, the patient was noted to have extensive blood loss, total of 3 L EBL. He was converted to open procedure. Hemostasis was able to be achieved. He has received a total of 5 units PRBCs, 1.2 L of albumin, and 3 L of crystalloid. He is currently in the intensive care unit, intubated to mechanical ventilator. He has a left lateral thoracotomy incision with 2 chest tubes with a total of 170 mL of serosanguineous output collectively. 1 has a persistent intermittent airleak. They are attached to 2 separate atriums with -20 cm H2O suction. Postoperative chest x-ray shows the endotracheal tube approximately 4 to 5 cm above the mildred, in satisfactory position. Orogastric tube likely extending in the proximal duodenum. The two left-sided chest tubes are demonstrated, with new left-sided volume loss, without visualized pneumothorax or fluid collection. Initial postoperative ventilator settings were AC, respiratory rate 16, tidal volume 500, FiO2 100%, and PEEP of 5. Follow-up ABGs included a PaO2 of greater than 420, P CO2 of 50, pH of 7.23. My supervising physician adjusted the respiratory rate to 20 and FiO2 has been cut down to 50%. Patient is currently synchronous on mechanical ventilator. He is sedated on propofol which is infusing at 40 mcg/kg/min. Levophed is also infusing at 0.05 mcg/kg/min. This is an improvement, as the patient had some substantial hypotension intraoperatively. The nurse has been able to titrate down on the Levophed after completing the above-mentioned blood products. No significant hemorrhaging from chest tubes at this time. Fluid appears serosanguineous. Most recent hemoglobin 8.9 g/dL, hematocrit 27.2, platelets 134,000. Coagulation profile includes a PT of 14, INR of 1.3, and a PTT of 26.5. Most recent available BMP: Sodium 141, potassium 3.2, chloride 107, serum bicarb 22, BUN 18, creatinine 0.73, glucose 321. Patient also has a 3M sodium bicarb in D5W infusion at 200 MLS per hour. This is a contributing to some hyperglycemia. Progress note dated November 16, 2023. 73-year-old male with a history of lung cancer. The patient was initially seen by my partner for a left upper lobe pulmonary nodule. Robotic bronchoscopy was nondiagnostic. The patient underwent a presumed robotically assisted thoracoscopic excision of the pulmonary nodule, but because of the bleeding, the patient had an open procedure, and came back to the intensive care unit on the ventilator. He was extubated the very next day. Clinically he is doing much better. He is seen today in room 260. Currently, the patient is on 2 L. He did use his home CPAP device last night. He is not on any IVs. He is postop day #2. He has [address], both with small leaks. Both chest tubes have been placed to waterseal. Current labs include a white count 7.3, hemoglobin 9.2, hematocrit 27.5, and a platelet count of 122,000. Sodium 133, potassium 3.9, chloride 99, CO2 31, BUN 19, creatinine 0.84. Glucose 148. Calcium 7.5. Chest x-ray shows 2 left-sided chest tubes, and no evidence of pneumothorax. Progress note dated November 17, 2023. 73-year-old male with a history of lung cancer. The patient was initially seen by my partner, and had robotic bronchoscopy. This was for a left upper lobe pulmonary nodule. The procedure was nondiagnostic. The patient had a surgical procedure done here, and instead of having a robotically assisted thoracoscopic procedure, the patient ended up having a left-sided open procedure. The surgery was done by Dr. Brooks. The patient lost quite a bit of blood in the operating room. The patient is doing much better now. He is seen today in room 362. He is on 3 L of oxygen. No IV fluids. 2 chest tubes remain on the left side. He has leaks on both chest tubes. Current labs include a white count 7.4, hemoglobin 8.2, hematocrit 24.3, platelet count 133,000. Sodium 131, potassium 3.8, chlorides 98, CO2 26, BUN 27, and creatinine 0.94. Glucose is 98. Calcium 7.7. Chest x-ray shows 2 left-sided chest tubes in place. There is a persistent left apical pneumothorax. There is also worsened aeration of the left lung. Progress note dated November 18, 2023. 73-year-old male with a history of lung cancer. The patient is resting comfortably, and is seen today in room 362. He continues with 2 left-sided chest tubes. Small leaks are noted. He is on oxygen, by nasal cannula at 2 L. The patient's not receiving any IV fluids. Current labs include a white count 7.7, hemoglobin 8.4, hematocrit 24.4, and platelet count 156,000. Sodium 134, potassium 4.3, chlorides 101, CO2 28, BUN 21, creatinine 0.65. Chest x-ray shows stable postsurgical changes in the left lung from the left upper lobectomy and mediastinal lymph node dissection. Chest tubes are noted. A small pneumothorax is noted. On 11/19/2023, the patient is being seen for a follow-up. The patient is postop day #5 following robotic assisted open posterior lateral thoracotomy with left upper lobectomy and mediastinal lymph node dissection. The patient is currently on 2 L of oxygen by nasal cannula. He is less short of breath compared to yesterday. The output from the left posterior chest tube is low in the order of 250 cc over the past 24 hours and output from the anterior chest tube is around 460 cc over the past 24 hours. There is only intermittent air leak from the anterior chest tube. There is still ongoing volume loss in the left lung and there is incomplete reexpansion of the left lower lobe. Based on that, a CAT scan of the chest was done and the patient was found to have postsurgical changes in the left lung with a small to moderate-sized left-sided pneumothorax. The chest tubes are in place. There is partial atelectasis of the left lung with an area of consolidation. The patient also has some postsurgical changes in the left lateral chest wall with a hematoma identified in the left lateral chest wall space between fifth and seventh rib. Pain is under adequate control with using incentive spirometer. Is ambulating. Sodium is at 135, BUN is 21 with a creatinine of 0.9. The risk is 6.2 with a hemoglobin 8.6 and platelet count of 231. t On 11/20/2023, the patient is being seen for a follow-up. The patient is sitting up in the chair and the patient is calm and comfortable. The patient is post left upper lobectomy and mediastinal lymph node dissection. Nevertheless, subsequent follow-up chest x-ray showed volume loss in the left lung. The chest x-ray from today is showing postlumpectomy changes in the left lung along with the chest tubes and anterior and posterior chest tube. There is ongoing opacification throughout the left hemithorax with incomplete expansion of the left lung. As such, the patient is currently n.p.o. and the patient will undergo a diagnostic bronchoscopy today. CAT scan from yesterday was noted and it was also positive for a moderate-sized left-sided pneumothorax. The patient is currently on 2 L of oxygen by nasal cannula. Chest tube output was noted and the patient is having a total of 250 cc of serosanguineous drainage from the anterior apical chest tube and 460 cc from the posterior chest tube. Note that the posterior chest tube has no air leak and there is some intermittent air leak involving the anterior chest tube. Nevertheless, the patient is calm and comfortable. The blood work was noted that the patient has a hemoglobin of 8.6 with a white cell count 7.2, BUN is 20 mg of 0.7 and a sodium levels at 136. On 11/21/2023, the patient has no specific complaints. He continues to be hoarse and left vocal cord paralysis was noted on his bronchoscopy that was done yesterday. The same time, there was significant narrowing of the orifice of the left lower lobe bronchus. Discussed the case with the thoracic surgeon. Repeat bronchoscopy is to be done tomorrow. Meanwhile, the patient's chest x-ray from today shows a left-sided pneumothorax and a left-sided chest tube is in place. Noted the posterior chest tube was removed yesterday. The size of the pneumothorax is larger compared to yesterday. There is no evidence of any air leak in his chest tube. The patient is currently postop day #. There is a bronchoscopy yesterday, copious amount of mucous plugs were also identified in the left mainstem patient was started on IV cefepime. The stump was intact. Nevertheless, there was significant swelling and encroachment on the left lower lobe orifice and based on that we opted to start the patient on steroids. Repeat bronchoscopy to be done tomorrow. No other new complaints otherwise for now. Afebrile. Hemodynamically stable. Using incentive spirometer. On today's evaluation of 11/22/2023, the patient is on room air oxygen. He has no specific complaints. I had a lengthy discussion regarding his case along with the thoracic surgeon, Dr. Brooks and the plan is to repeat the bronchoscopy and do another airway inspection to reevaluate the patency of the left lower lobe bronchus. As mentioned, the stump is very close to the orifice of the left lower lobe bronchus and there was anatomic obstruction with significant narrowing and excess amount of respiratory secretions that were suctioned out from the distal left mainstem bronchus. The patient is currently on IV antibiotics and the patient is currently on IV cefepime. He was started also on IV steroids. His blood work from today shows a white cell count of 9.1 with a hemoglobin of 8.4, BUN is 29 and a creatinine of 0.7. He remains hoarse and this is attributed to a left vocal cord paralysis as the patient had significant malignant lymphadenopathy in the AP window involving the recurrent laryngeal nerve on the left. On 11/23/2023, I am seeing the patient for a follow-up. The patient is doing well. He remains hoarse related to his vocal cord paralysis. Nevertheless, he remains on room air oxygen. No significant respite difficulties at rest. He is ambulating. The left-sided chest tube is still in place. I noted that the patient has some ongoing intermittent airleak. The bronchoscopy was done yesterday and therapeutic airway suctioning was done. Repeat chest x-ray from today showing some interval improvement in aeration of the left lung. There are some ongoing volume loss in the left hemithorax compared to the right and the patient has undergone a previous left upper lobe resection. There is also a small 5% left apical pneumothorax still present and the size of the pneumothorax is improved considerably. The patient had a bronchoscopy endobronchial lavage and mucous plugs were removed. The culture still pending for now. BUN 32 with a creatinine of 0 point manage abdominal is at 137. The white cell count is at 10.3 with a hemoglobin of 8.4. The patient remains on DuoNeb nebulized treatments [id number]. The patient remains on IV cefepime. The patient remains on IV Solu-Medrol. Objective - Vital Signs Vital signs: Vital Signs Temp 97.7 F 11/23/23 08:26 Pulse 68 11/23/23 11:11 Resp 20 11/23/23 08:26 BP 114/64 11/23/23 08:26 Pulse Ox 95 11/23/23 08:26 FiO2 40 11/15/23 10:29 Intake & Output 11/22/23 11/23/23 11/23/23 18:59 06:59 18:59 Intake Total 508 240 128 Output Total 1720 1230 0 Balance -1212 -990 128 Weight 92 kg Intake: IV 50 10 Invasive Line 8 10 Oral 458 240 118 Output: Chest Tube Drainage 70 30 0 L pleural CHT 1 70 30 0 Urine 1650 1200 Other: Voiding Method Urinal Urinal Urinal # Voids 3 1 ABP, PAP, CO, CI - Last Documented Arterial Blood Pressure 120/52 - Exam No acute distress, oriented 3. The patient is currently on room air oxygen. His voice remains hoarse. HEENT examination is grossly unremarkable. Mucous membranes are moist. No oral lesions. Neck supple. Full range of motion. No adenopathy thyromegaly or neck vein distention. Cardiovascular examination reveals regular rhythm rate. S1-S2 normal. No S3 or S4. No discernible murmur noted. Lungs reveal scattered bilateral rhonchi, left greater than right. No wheezes or crackles. Breath sounds equal. The patient has a single left anterior chest tube. Diminished breath on the left compared to the right. No evidence of any air leak. Abdomen soft bowel sounds are heard. No masses or tenderness. Extremities are intact. No cyanosis clubbing or edema. Skin is without rash or lesion. Neurologic examination is brief but nonfocal. - Labs CBC & Chem 7: 11/23/23 08:57 11/23/23 08:57 Labs: Abnormal Lab Results - Last 24 Hours (Table) 11/22/23 11/22/23 11/23/23 Range/Units 16:32 20:24 06:00 RBC (4.30-5.90) m/uL Hgb (13.0-17.5) gm/dL Hct (39.0-53.0) % MCHC (31.0-37.0) g/dL Plt Count (150-450) k/uL BUN (9-20) mg/dL Glucose (74-99) mg/dL POC Glucose (mg/dL) 198 H 167 H 163 H (70-110) mg/dL 11/23/23 11/23/23 Range/Units 08:57 08:57 RBC 2.77 L (4.30-5.90) m/uL Hgb 8.4 L (13.0-17.5) gm/dL Hct 27.3 L (39.0-53.0) % MCHC 30.9 L (31.0-37.0) g/dL Plt Count 521 H (150-450) k/uL BUN 32 H (9-20) mg/dL Glucose 122 H (74-99) mg/dL POC Glucose (mg/dL) (70-110) mg/dL Microbiology - Last 24 Hours (Table) 11/20/23 13:15 Gram Stain - Final Bronchoalviolar Lavage - Left Bronchial Washings Culture - Final Assessment and Plan Plan: Status postoperative day # 9 following bronchoscopy with a left robotic assisted thorascopic surgery converted to open posterior lateral thoracotomy with left upper lobectomy and mediastinal lymph node dissection. The OR report indicated some nodes matted and adherent to the truncus branch of the pulmonary artery. Frozen section analysis reportedly revealed non-small cell carcinoma. The final pathology was consistent with, adenocarcinoma, stage III. Left lung atelectasis/pneumothorax. Bronchoscopy was done and there was significant narrowing and encroachment of the left lower lobe bronchial orifice. There is also a swollen distal left mainstem bronchus and the stump which is infected causing significant amount of engorgement in the left lower lobe bronchus orifice. The bronchial lavage from the left lower lobe is still pe nding and the patient is currently on IV cefepime. The patient is also on IV Solu-Medrol. Chest x-ray findings remained stable and the patient's has reduction in size of the left-sided pneumothorax with some intermittent airleak still present in the Pleur-evac. Acute hypoxic respiratory failure currently on room air oxygen Shortness of breath, secondary to above, improved Stage III non-small cell lung cancer/adenocarcinoma. 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 History of obstructive sleep apnea. History of marijuana use. Former tobacco smoker, quitting May 2023. Plan: Titrate O2 to maintain saturation above 90%, currently on room air oxygen Monitor the output from the chest tube Monitor the airleak from the chest tube, smaller left apical pneumothorax is noted on today's chest x-ray. There is improvement in the aeration of the left lung/left lower lobe Continue incentive spirometer Reviewed the CAT scan along with the thoracic surgeon. Reviewed the bronchoscopy findings with the thoracic surgeon. Repeat bronchoscopy was done for yesterday and the patient continues to have significant compromise of the left lower lobe bronchus orifice as discussed earlier. Awaiting cultures from the left lower lobe Continue IV Solu-Medrol Continue IV cefepime Will continue to follow
[2023-11-23 16:45] LABS: Glucose,Whole Blood 162 mg/dL (70-110)
[2023-11-23 20:10] LABS: Glucose,Whole Blood 170 mg/dL (70-110)
[2023-11-24 06:20] LABS: Glucose,Whole Blood 146 mg/dL (70-110)
[2023-11-24 10:27] LABS: HCT 28.4 % (39.0-53.0); MCH 30.8 pg (25.0-35.0); MCHC 31.9 g/dL (31.0-37.0); MCV 96.5 fL (80.0-100.0); Mean Platelet Volume 7.8; Platelet Count 578 k/uL (150-450); RBC 2.94 m/uL (4.30-5.90); RDW 14.1 % (11.5-15.5); WBC 11.4 k/uL (3.8-10.6)
[2023-11-24 10:38] LABS: Potassium 4.4 mmol/L (3.5-5.1)
[2023-11-24 10:39] LABS: African American GFR (CKD) >90 (>60 ml/min/1.73 sqM); Anion Gap 4 mmol/L; Blood Urea Nitrogen 34 mg/dL (9-20); Calcium 8.9 mg/dL (8.4-10.2); Carbon Dioxide 29 mmol/L (22-30); Chloride 103 mmol/L (98-107); Glucose 129 mg/dL (74-99); Non-African American GFR(CKD) 88 (>60 ml/min/1.73 sqM); Sodium 136 mmol/L (137-145)
[2023-11-24 11:36] LABS: Glucose,Whole Blood 144 mg/dL (70-110)
--- NOTE | 2023-11-24 13:12 | XR ---
EXAMINATION TYPE: XR chest 1V portable DATE OF EXAM: 11/24/2023 COMPARISON: 11/23/2023 HISTORY: Post lobectomy TECHNIQUE: Single frontal view of the chest is obtained. FINDINGS: Chest tube and left-sided surgical matthieu. There is a 5% left apical pneumothorax with le ft-sided consolidation and small effusion. Right lung clear. Heart size stable. Degenerative changes of the spine. Surgical matthieu along the left chest wall. IMPRESSION: 1. Left-sided consolidation and pleural effusion with volume loss compatible lobectomy. 2. Small 5% left apical pneumothorax.
--- NOTE | 2023-11-24 13:26 | P.PN ---
Subjective Progress Note Date: 11/24/23 Principal diagnosis: Lung nodule, non-small cell lung cancer. Previous medical history of tobacco dependence with recent cessation in May 2023, obstructive sleep apnea with home CPAP use, hypertension, BPH, anxiety/depression, and frequent marijuana use POD #9 bronchoscopy, left robotic assisted thorascopic surgery converted the open postero-lateral thoracotomy with left upper lobectomy, mediastinal lymph node dissection, intercostal nerve block - 3 levels Acute blood loss anemia, hypotension due to hypovolemic shock, recovered after blood transfusion Left lung atelectasis/pneumothorax with incomplete expansion of the left lung Left vocal cord paralysis. Physiologic obstructing left mainstem bronchus erythematous and inflamed left upper lobe stump, with obvious rotation anatomic distortion and narrowing of the left lower lobe bronchus orifice POD #[address] Myers with suctioning of mucous plugs The patient was seen and examined in follow-up today November 24, 2023 at his bedside on the third floor cardiac stepdown unit. He is currently sitting up to the bedside chair, is awake, alert, oriented x 3 and is in no acute apparent distress. Denies any complaints of shortness of breath or pain at this time. Reports his pain is well-controlled on current pain medication regimen. Oxygen saturations are 95% on room air and he is achieving 2000 mL on his incentive spirometry with encouragement. Left pleural chest tube remains in place, no air leak is present. Draining thin serosanguineous drainage with 30 mL output in the last 8 hours and 80 mL output in the last 24 hours. He reports he has been tolerating walking in the cardiac unit hallway without difficulty. He is scheduled for a bronchoscopy tomorrow November 25, 2023 to be performed by Dr. Myers. Chest x-ray results reviewed. Objective - Vital Signs Vital signs: Vital Signs Temp 98.2 F 11/24/23 12:19 Pulse 72 11/24/23 12:21 Resp 20 11/24/23 12:19 BP 133/80 11/24/23 12:19 Pulse Ox 100 11/24/23 12:19 FiO2 40 11/15/23 10:29 Intake & Output 11/23/23 11/24/23 11/24/23 18:59 06:59 18:59 Intake Total 474 20 350 Output Total 925 7670 316 Balance -451 -1346 34 Weight 90.5 kg Intake: IV 20 20 10 Invasive Line 8 10 Invasive Line 9 10 20 10 Intake, IV Titration 100 Amount Cefepime 2 gm In Sodium 100 Chloride 0.9% 100 ml @ 25 mls/hr IVPB Q8HR [facility] Rx# :[id number] Oral 354 340 Output: Chest Tube Drainage 50 30 16 L pleural CHT 1 50 30 16 Urine 875 2750 300 Other: Voiding Method Urinal Urinal Urinal # Voids 2 ABP, PAP, CO, CI - Last Documented Arterial Blood Pressure 120/52 - Exam CONSTITUTIONAL: Appears comfortable, cooperative, no acute distress. Voice is hoarse RESPIRATORY: Lungs sounds diminished on the left. Respirations even, nonlabored. Currently on room air with oxygen saturation 95%. Able to achieve 2000 mL on incentive spirometry. Strong cough. CARDIOVASCULAR: S1, S2 present. Regular rate and rhythm, sinus rhythm on telemetry. Palpable peripheral pulses bilaterally. No edema present. No calf pain or tenderness noted. SCDs present. GASTROINTESTINAL: Abdomen soft, nontender, nondistended. Active bowel sounds present 4 quadrants. Tolerating diet. Bowel movement 11/22 GENITOURINARY: Continues to void clear, yellow urine. Urine output 2750 mL in the last 24 hours. INTEGUMENTARY: Skin is warm and dry with evidence of good perfusion. Left chest thoracic incision well approximated, intact matthieu. NEUROLOGIC: Cranial nerves II through XII intact. No focal deficits. MUSKULOSKELETAL: Able to move all extremities, strength equal bilaterally, gait normal PSYCHIATRIC: Alert and oriented to person place and time, appropriate affect, intact judgment and insight INVASIVE LINES AND TUBES: Left apical pleural chest tubes present and connected to wall suction, no airleak present. Apical (anterior) tube with 80 mL serosanguineous drainage in the last 24 hours. - Allied health notes Allied health notes reviewed: nursing - Labs CBC & Chem 7: 11/24/23 10:14 11/24/23 10:14 Labs: Abnormal Lab Results - Last 24 Hours (Table) 11/23/23 11/23/23 11/24/23 Range/Units 16:43 20:08 06:19 WBC (3.8-10.6) k/uL RBC (4.30-5.90) m/uL Hgb (13.0-17.5) gm/dL Hct (39.0-53.0) % Plt Count (150-450) k/uL Sodium (137-145) mmol/L BUN (9-20) mg/dL Glucose (74-99) mg/dL POC Glucose (mg/dL) 162 H 170 H 146 H (70-110) mg/dL 11/24/23 11/24/23 11/24/23 Range/Units 10:14 10:14 11:34 WBC 11.4 H (3.8-10.6) k/uL RBC 2.94 L (4.30-5.90) m/uL Hgb 9.0 L (13.0-17.5) gm/dL Hct 28.4 L (39.0-53.0) % Plt Count 578 H (150-450) k/uL Sodium 136 L (137-145) mmol/L BUN 34 H (9-20) mg/dL Glucose 129 H (74-99) mg/dL POC Glucose (mg/dL) 144 H (70-110) mg/dL - Imaging and Cardiology Chest x-ray: report reviewed, image reviewed Assessment and Plan Assessment: Lung nodule, non-small cell lung cancer, status post bronchoscopy, left robotic assisted thorascopic surgery converted the open postero-lateral thoracotomy with left upper lobectomy, mediastinal lymph node dissection, pathology consistent with stage IIIa adenocarcinoma Tobacco dependence with recent cessation in May 2023 Obstructive sleep apnea with home CPAP use Hypertension BPH Anxiety/depression Frequent marijuana use Acute blood loss anemia, hypotension due to hypovolemic shock, recovered after blood transfusion Left lung atelectasis/pneumothorax with incomplete expansion of the left lung, eft vocal cord paralysis, physiologic obstructing left mainstem bronchus erythematous and inflamed left upper lobe stump, with obvious rotation anatomic distortion and narrowing of the left lower lobe bronchus orifice, status post bronchoscopy by Dr. Myers with suctioning of mucous plugs Plan: Continue apical (anterior) chest tube to continuous wall suction, continue to monitor drainage. Bronchoscopy to be repeated November 25, [address] Myers, n.p.o. after midnight. Continue antibiotics, continue Solu-Medrol every 12 hours. Continue oral Lasix every 8 hours. Continue current medication regimen Encourage incentive spirometry use 10 times every hour while awake. Increase activity, ambulate as tolerated. Will monitor daily labs and chest x-rays. Pain control per current medication regimen. GI/DVT prophylaxis. More recommendations to follow based on patient's clinical course. Time with Patient: Greater than 30
[2023-11-24 16:52] LABS: Glucose,Whole Blood 188 mg/dL (70-110)
--- NOTE | 2023-11-24 18:34 | P.PN ---
Subjective Progress Note Date: 11/24/23 Patient is a 73-year-old white male with past medical history significant for left upper lung nodule. Patient did reportedly have a PET scan, showing an FDG avid spiculated 17 x 15 mm lung nodule. He underwent Ion bronchoscopy with Dr. Myers on 10/18/2023, which was essentially nondiagnostic. He was referred to cardiothoracic surgery for diagnosis. Yesterday, patient underwent bronchoscopy with a left robotic assisted thorascopic surgery converted to open posterior lateral thoracotomy with left upper lobectomy and mediastinal lymph node dissection. The OR report indicated some nodes matted and adherent to the truncus branch of the pulmonary artery. Frozen section analysis revealed non-sma ll cell carcinoma. Intraoperatively, the patient was noted to have extensive blood loss, total of 3 L EBL. He was converted to open procedure. Hemostasis was able to be achieved. He has received a total of 5 units PRBCs, 1.2 L of albumin, and 3 L of crystalloid. He is currently in the intensive care unit, intubated to mechanical ventilator. He has a left lateral thoracotomy incision with 2 chest tubes with a total of 170 mL of serosanguineous output collectively. 1 has a persistent intermittent airleak. They are attached to 2 separate atriums with -20 cm H2O suction. Postoperative chest x-ray shows the endotracheal tube approximately 4 to 5 cm above the mildred, in satisfactory position. Orogastric tube likely extending in the proximal duodenum. The two left-sided chest tubes are demonstrated, with new left-sided volume loss, without visualized pneumothorax or fluid collection. Initial postoperative ventilator settings were AC, respiratory rate 16, tidal volume 500, FiO2 100%, and PEEP of 5. Follow-up ABGs included a PaO2 of greater than 420, P CO2 of 50, pH of 7.23. My supervising physician adjusted the respiratory rate to 20 and FiO2 has been cut down to 50%. Patient is currently synchronous on mechanical ventilator. He is sedated on propofol which is infusing at 40 mcg/kg/min. Levophed is also infusing at 0.05 mcg/kg/min. This is an improvement, as the patient had some substantial hypotension intraoperatively. The nurse has been able to titrate down on the Levophed after completing the above-mentioned blood products. No significant hemorrhaging from chest tubes at this time. Fluid appears serosanguineous. Most recent hemoglobin 8.9 g/dL, hematocrit 27.2, platelets 134,000. Coagulation profile includes a PT of 14, INR of 1.3, and a PTT of 26.5. Most recent available BMP: Sodium 141, potassium 3.2, chloride 107, serum bicarb 22, BUN 18, creatinine 0.73, glucose 321. Patient also has a 3M sodium bicarb in D5W infusion at 200 MLS per hour. This is a contributing to some hyperglycemia. Progress note dated November 16, 2023. 73-year-old male with a history of lung cancer. The patient was initially seen by my partner for a left upper lobe pulmonary nodule. Robotic bronchoscopy was nondiagnostic. The patient underwent a presumed robotically assisted thoracoscopic excision of the pulmonary nodule, but because of the bleeding, the patient had an open procedure, and came back to the intensive care unit on the ventilator. He was extubated the very next day. Clinically he is doing much better. He is seen today in room 260. Currently, the patient is on 2 L. He did use his home CPAP device last night. He is not on any IVs. He is postop day #2. He has [address], both with small leaks. Both chest tubes have been placed to waterseal. Current labs include a white count 7.3, hemoglobin 9.2, hematocrit 27.5, and a platelet count of 122,000. Sodium 133, potassium 3.9, chloride 99, CO2 31, BUN 19, creatinine 0.84. Glucose 148. Calcium 7.5. Chest x-ray shows 2 left-sided chest tubes, and no evidence of pneumothorax. Progress note dated November 17, 2023. 73-year-old male with a history of lung cancer. The patient was initially seen by my partner, and had robotic bronchoscopy. This was for a left upper lobe pulmonary nodule. The procedure was nondiagnostic. The patient had a surgical procedure done here, and instead of having a robotically assisted thoracoscopic procedure, the patient ended up having a left-sided open procedure. The surgery was done by Dr. Brooks. The patient lost quite a bit of blood in the operating room. The patient is doing much better now. He is seen today in room 362. He is on 3 L of oxygen. No IV fluids. 2 chest tubes remain on the left side. He has leaks on both chest tubes. Current labs include a white count 7.4, hemoglobin 8.2, hematocrit 24.3, platelet count 133,000. Sodium 131, potassium 3.8, chlorides 98, CO2 26, BUN 27, and creatinine 0.94. Glucose is 98. Calcium 7.7. Chest x-ray shows 2 left-sided chest tubes in place. There is a persistent left apical pneumothorax. There is also worsened aeration of the left lung. Progress note dated November 18, 2023. 73-year-old male with a history of lung cancer. The patient is resting comfortably, and is seen today in room 362. He continues with 2 left-sided chest tubes. Small leaks are noted. He is on oxygen, by nasal cannula at 2 L. The patient's not receiving any IV fluids. Current labs include a white count 7.7, hemoglobin 8.4, hematocrit 24.4, and platelet count 156,000. Sodium 134, potassium 4.3, chlorides 101, CO2 28, BUN 21, creatinine 0.65. Chest x-ray shows stable postsurgical changes in the left lung from the left upper lobectomy and mediastinal lymph node dissection. Chest tubes are noted. A small pneumothorax is noted. On 11/19/2023, the patient is being seen for a follow-up. The patient is postop day #5 following robotic assisted open posterior lateral thoracotomy with left upper lobectomy and mediastinal lymph node dissection. The patient is currently on 2 L of oxygen by nasal cannula. He is less short of breath compared to yesterday. The output from the left posterior chest tube is low in the order of 250 cc over the past 24 hours and output from the anterior chest tube is around 460 cc over the past 24 hours. There is only intermittent air leak from the anterior chest tube. There is still ongoing volume loss in the left lung and there is incomplete reexpansion of the left lower lobe. Based on that, a CAT scan of the chest was done and the patient was found to have postsurgical changes in the left lung with a small to moderate-sized left-sided pneumothorax. The chest tubes are in place. There is partial atelectasis of the left lung with an area of consolidation. The patient also has some postsurgical changes in the left lateral chest wall with a hematoma identified in the left lateral chest wall space between fifth and seventh rib. Pain is under adequate control with using incentive spirometer. Is ambulating. Sodium is at 135, BUN is 21 with a creatinine of 0.9. The risk is 6.2 with a hemoglobin 8.6 and platelet count of 231. t On 11/20/2023, the patient is being seen for a follow-up. The patient is sitting up in the chair and the patient is calm and comfortable. The patient is post left upper lobectomy and mediastinal lymph node dissection. Nevertheless, subsequent follow-up chest x-ray showed volume loss in the left lung. The chest x-ray from today is showing postlumpectomy changes in the left lung along with the chest tubes and anterior and posterior chest tube. There is ongoing opacification throughout the left hemithorax with incomplete expansion of the left lung. As such, the patient is currently n.p.o. and the patient will undergo a diagnostic bronchoscopy today. CAT scan from yesterday was noted and it was also positive for a moderate-sized left-sided pneumothorax. The patient is currently on 2 L of oxygen by nasal cannula. Chest tube output was noted and the patient is having a total of 250 cc of serosanguineous drainage from the anterior apical chest tube and 460 cc from the posterior chest tube. Note that the posterior chest tube has no air leak and there is some intermittent air leak involving the anterior chest tube. Nevertheless, the patient is calm and comfortable. The blood work was noted that the patient has a hemoglobin of 8.6 with a white cell count 7.2, BUN is 20 mg of 0.7 and a sodium levels at 136. On 11/21/2023, the patient has no specific complaints. He continues to be hoarse and left vocal cord paralysis was noted on his bronchoscopy that was done yesterday. The same time, there was significant narrowing of the orifice of the left lower lobe bronchus. Discussed the case with the thoracic surgeon. Repeat bronchoscopy is to be done tomorrow. Meanwhile, the patient's chest x-ray from today shows a left-sided pneumothorax and a left-sided chest tube is in place. Noted the posterior chest tube was removed yesterday. The size of the pneumothorax is larger compared to yesterday. There is no evidence of any air leak in his chest tube. The patient is currently postop day #. There is a bronchoscopy yesterday, copious amount of mucous plugs were also identified in the left mainstem patient was started on IV cefepime. The stump was intact. Nevertheless, there was significant swelling and encroachment on the left lower lobe orifice and based on that we opted to start the patient on steroids. Repeat bronchoscopy to be done tomorrow. No other new complaints otherwise for now. Afebrile. Hemodynamically stable. Using incentive spirometer. On today's evaluation of 11/22/2023, the patient is on room air oxygen. He has no specific complaints. I had a lengthy discussion regarding his case along with the thoracic surgeon, Dr. Brooks and the plan is to repeat the bronchoscopy and do another airway inspection to reevaluate the patency of the left lower lobe bronchus. As mentioned, the stump is very close to the orifice of the left lower lobe bronchus and there was anatomic obstruction with significant narrowing and excess amount of respiratory secretions that were suctioned out from the distal left mainstem bronchus. The patient is currently on IV antibiotics and the patient is currently on IV cefepime. He was started also on IV steroids. His blood work from today shows a white cell count of 9.1 with a hemoglobin of 8.4, BUN is 29 and a creatinine of 0.7. He remains hoarse and this is attributed to a left vocal cord paralysis as the patient had significant malignant lymphadenopathy in the AP window involving the recurrent laryngeal nerve on the left. On 11/23/2023, I am seeing the patient for a follow-up. The patient is doing well. He remains hoarse related to his vocal cord paralysis. Nevertheless, he remains on room air oxygen. No significant respite difficulties at rest. He is ambulating. The left-sided chest tube is still in place. I noted that the patient has some ongoing intermittent airleak. The bronchoscopy was done yesterday and therapeutic airway suctioning was done. Repeat chest x-ray from today showing some interval improvement in aeration of the left lung. There are some ongoing volume loss in the left hemithorax compared to the right and the patient has undergone a previous left upper lobe resection. There is also a small 5% left apical pneumothorax still present and the size of the pneumothorax is improved considerably. The patient had a bronchoscopy endobronchial lavage and mucous plugs were removed. The culture still pending for now. BUN 32 with a creatinine of 0 point manage abdominal is at 137. The white cell count is at 10.3 with a hemoglobin of 8.4. The patient remains on DuoNeb nebulized treatments [id number]. The patient remains on IV cefepime. The patient remains on IV Solu-Medrol. On today's evaluation of 11/24/2023, the patient is on room air oxygen. Sitting up in the chair. No specific complaints. Chest tube is still in place. No evidence of any air leak. Repeat chest x-ray was done and showed volume loss in the left lung. This is consistent with lobectomy. There is questionable 5% pneumothorax in the left apex. Hemodynamically stable. Sputum Gram stain and culture has been negative endobronchial lavage from the left lower lobe was also negative. The patient remains on IV cefepime. BUN 34 with a creatinine of 0.8. Sodium levels at 136. WBC count is 11.4 with a hemoglobin 9.0 and a platelet count of 578. Remains on bronchodilators. Remains on IV cefepime. Remains on IV Solu-Medrol 60 mg every 12 hours. Using incentive spirometer. Ambulating. Output from the chest tube is minimal at this point in time. Objective - Vital Signs Vital signs: Vital Signs Temp 97.7 F 11/24/23 08:00 Pulse 62 11/24/23 08:22 Resp 18 11/24/23 08:00 BP 114/77 11/24/23 08:00 Pulse Ox 100 11/24/23 08:01 FiO2 40 11/15/23 10:29 Intake & Output 11/23/23 11/24/23 11/24/23 18:59 06:59 18:59 Intake Total 474 20 10 Output Total 925 2780 316 Balance -451 -8030 -306 Weight 90.5 kg Intake: IV 20 20 10 Invasive Line 8 10 Invasive Line 9 10 20 10 Intake, IV Titration 100 Amount Cefepime 2 gm In Sodium 100 Chloride 0.9% 100 ml @ 25 mls/hr IVPB Q8HR [facility] Rx# :[id number] Oral 354 Output: Chest Tube Drainage 50 30 16 L pleural CHT 1 50 30 16 Urine 875 2750 300 Other: Voiding Method Urinal Urinal Urinal # Voids 2 ABP, PAP, CO, CI - Last Documented Arterial Blood Pressure 120/52 - Exam No acute distress, oriented 3. The patient is currently on room air oxygen. His voice remains hoarse. HEENT examination is grossly unremarkable. Mucous membranes are moist. No oral lesions. Neck supple. Full range of motion. No adenopathy thyromegaly or neck vein distention. Cardiovascular examination reveals regular rhythm rate. S1-S2 normal. No S3 or S4. No discernible murmur noted. Lungs reveal scattered bilateral rhonchi, left greater than right. No wheezes or crackles. Breath sounds equal. The patient has a single left anterior chest tube. Diminished breath on the left compared to the right. No evidence of any air leak. Abdomen soft bowel sounds are heard. No masses or tenderness. Extremities are intact. No cyanosis clubbing or edema. Skin is without rash or lesion. Neurologic examination is brief but nonfocal. - Labs CBC & Chem 7: 11/24/23 10:14 11/24/23 10:14 Labs: Abnormal Lab Results - Last 24 Hours (Table) 11/23/23 11/23/23 11/23/23 Range/Units 11:51 16:43 20:08 WBC (3.8-10.6) k/uL RBC (4.30-5.90) m/uL Hgb (13.0-17.5) gm/dL Hct (39.0-53.0) % Plt Count (150-450) k/uL Sodium (137-145) mmol/L BUN (9-20) mg/dL Glucose (74-99) mg/dL POC Glucose (mg/dL) 151 H 162 H 170 H (70-110) mg/dL 11/24/23 11/24/23 11/24/23 Range/Units 06:19 10:14 10:14 WBC 11.4 H (3.8-10.6) k/uL RBC 2.94 L (4.30-5.90) m/uL Hgb 9.0 L (13.0-17.5) gm/dL Hct 28.4 L (39.0-53.0) % Plt Count 578 H (150-450) k/uL Sodium 136 L (137-145) mmol/L BUN 34 H (9-20) mg/dL Glucose 129 H (74-99) mg/dL POC Glucose (mg/dL) 146 H (70-110) mg/dL Assessment and Plan Plan: Status postoperative day # 9 following bronchoscopy with a left robotic assisted thorascopic surgery converted to open posterior lateral thoracotomy with left u pper lobectomy and mediastinal lymph node dissection. The OR report indicated some nodes matted and adherent to the truncus branch of the pulmonary artery. Frozen section analysis reportedly revealed non-small cell carcinoma. The final pathology was consistent with, adenocarcinoma, stage III. Left lung atelectasis/pneumothorax. Bronchoscopy was done and there was significant narrowing and encroachment of the left lower lobe bronchial orifice. There is also a swollen distal left mainstem bronchus and the stump which is infected causing significant amount of engorgement in the left lower lobe bronchus orifice. The bronchial lavage from the left lower lobe is still pending and the patient is currently on IV cefepime. The patient is also on IV Solu-Medrol. Chest x-ray findings remained stable, questionable less than 5% pneumothorax in the left apex without evidence of any air leak. Volume loss consistent with lobectomy. Acute hypoxic respiratory failure currently on room air oxygen Shortness of breath, secondary to above, improved Stage III non-small cell lung cancer/adenocarcinoma. 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 History of obstructive sleep apnea. History of marijuana use. Former tobacco smoker, quitting May 2023. Plan: Clinically stable Questionable tiny left apical pneumothorax, on today's chest x-ray, no evidence of any air leak. Titrate O2 to maintain saturation above 90%, currently on room air oxygen Monitor the output from the chest tube Continue incentive spirometer Reviewed the CAT scan along with the thoracic surgeon. Reviewed the bronchoscopy findings with the thoracic surgeon. Repeat bronchoscopy was done for yesterday and the patient continues to have significant compromise of the left lower lobe bronchus orifice as discussed earlier. Awaiting cultures from the left lower lobe Continue IV Solu-Medrol Continue IV cefepime Will repeat another bronchoscopy tomorrow to reevaluate the left lower lobe bronchus Will continue to follow
[2023-11-24 20:12] LABS: Glucose,Whole Blood 140 mg/dL (70-110)
[2023-11-24] MEDS: methylPREDNISolone SOD SUCCI 125 MG/2 ML VIAL IV SCH (20:20)
[2023-11-25 06:12] LABS: Glucose,Whole Blood 147 mg/dL (70-110)
--- NOTE | 2023-11-25 07:52 | XR ---
EXAMINATION TYPE: XR chest 1V portable DATE OF EXAM: 11/25/2023 6:36 AM CLINICAL INDICATION:Male, 73 years old with history of s/p left upper lobectomy; COMPARISON: Chest radiograph from one day prior. TECHNIQUE: XR chest 1V portable Frontal view of the chest. FINDINGS: Lungs/Pleura: Trace left pleural effusion. There is no evidence of right pleural effusion, focal cons olidation, or pneumothorax. Pulmonary vascularity: Unremarkable. Heart/mediastinum: Cardiomediastinal silhouette is unremarkable. Leftward shift of the mediastinum co mpatible with volume loss. Musculoskeletal: No acute osseous pathology. Other findings: Skin matthieu along left lateral chest wall. Lines/Tubes: Left thoracotomy tube is present without evidence of pneumothorax. IMPRESSION: 1. Leftward shift of the mediastinum compatible with recent surgery. No evidence for acute cardiopul monary process. 2. Left thoracotomy tube without evidence of pneumothorax. 3. Trace left pleural effusion.
[2023-11-25 11:38] LABS: Glucose,Whole Blood 159 mg/dL (70-110)
--- NOTE | 2023-11-25 12:03 | P.PN ---
Subjective Progress Note Date: 11/25/23 Principal diagnosis: Lung nodule, non-small cell lung cancer. Previous medical history of tobacco dependence with recent cessation in May 2023, obstructive sleep apnea with home CPAP use, hypertension, BPH, anxiety/depression, and frequent marijuana use POD #10 bronchoscopy, left robotic assisted thorascopic surgery converted the open postero-lateral thoracotomy with left upper lobectomy, mediastinal lymph node dissection, intercostal nerve block - 3 levels Acute blood loss anemia, hypotension due to hypovolemic shock, recovered after blood transfusion Left lung atelectasis/pneumothorax with incomplete expansion of the left lung Left vocal cord paralysis. Physiologic obstructing left mainstem bronchus erythematous and inflamed left upper lobe stump, with obvious rotation anatomic distortion and narrowing of the left lower lobe bronchus orifice POD #[address] Myers with suctioning of mucous plugs The patient was seen and examined in follow-up today November 25, 2023 at his bedside on the third floor cardiac stepdown unit. He is currently sitting up to the bedside chair, is awake, alert, oriented x 3 and is in no acute apparent distress. Denies any complaints of shortness of breath or pain at this time. Reports his pain is well-controlled on current pain medication regimen. The patient states he has been up ambulating in the cardiac stepdown unit hallway with standby assistance from nursing and therapy staff and tolerating well. Oxygen saturations are 94% on room air and he is achieving 2000 mL on his incentive spirometry with encouragement. Remote telemetry is showing sinus bradycardia heart rate 57 bpm. Left pleural chest tube remains in place to low continuous wall suction -20 cm H2O. No air leak is present. Draining thin serosanguineous drainage with 15 mL output in the last 8 hours and 55 mL output in the last 24 hours. Chest x-ray results reviewed. Objective - Vital Signs Vital signs: Vital Signs Temp 97.7 F 11/25/23 08:38 Pulse 78 11/25/23 09:48 Resp 18 11/25/23 08:38 BP 123/74 11/25/23 08:38 Pulse Ox 97 11/25/23 09:47 FiO2 40 11/15/23 10:29 Intake & Output 11/24/23 11/25/23 11/25/23 18:59 06:59 18:59 Intake Total 590 10 10 Output Total 1018 1477 237 Balance -428 -1467 -227 Weight 88.8 kg Intake: IV 10 10 10 Invasive Line 9 10 10 10 Oral 580 Output: Chest Tube Drainage 43 27 12 L pleural CHT 1 43 27 12 Urine 975 1450 225 Other: Voiding Method Urinal Urinal Urinal # Bowel Movements 1 ABP, PAP, CO, CI - Last Documented Arterial Blood Pressure 120/52 - Exam CONSTITUTIONAL: Appears comfortable, cooperative, no acute distress. Voice is hoarse RESPIRATORY: Lungs sounds diminished on the left. Respirations even, nonlabored. Currently on room air with oxygen saturation 94%. Able to achieve 2000 mL on incentive spirometry. Strong cough. CARDIOVASCULAR: S1, S2 present. Regular rate and rhythm, sinus rhythm on telemetry. Palpable peripheral pulses bilaterally. No edema present. No calf pain or tenderness noted. SCDs present. GASTROINTESTINAL: Abdomen soft, nontender, nondistended. Active bowel sounds present 4 quadrants. Tolerating diet. Bowel movement 11/22 GENITOURINARY: Continues to void clear, yellow urine. Urine output 1450 mL in the last 8 hours. INTEGUMENTARY: Skin is warm and dry with evidence of good perfusion. Left chest thoracic incision well approximated, intact matthieu. NEUROLOGIC: Cranial nerves II through XII intact. No focal deficits. MUSKULOSKELETAL: Able to move all extremities, strength equal bilaterally, gait normal PSYCHIATRIC: Alert and oriented to person place and time, appropriate affect, intact judgment and insight INVASIVE LINES AND TUBES: Left apical pleural chest tubes present and connected to wall suction, no airleak present. Apical (anterior) tube with 55 mL serosanguineous drainage in the last 24 hours. - Allied health notes Allied health notes reviewed: nursing - Labs CBC & Chem 7: 11/24/23 10:14 11/24/23 10:14 Labs: Abnormal Lab Results - Last 24 Hours (Table) 11/24/23 11/24/23 11/25/23 Range/Units 16:48 20:11 06:10 POC Glucose (mg/dL) 188 H 140 H 147 H (70-110) mg/dL 11/25/23 Range/Units 11:37 POC Glucose (mg/dL) 159 H (70-110) mg/dL - Imaging and Cardiology Chest x-ray: report reviewed, image reviewed Assessment and Plan Assessment: Lung nodule, non-small cell lung cancer, status post bronchoscopy, left robotic assisted thorascopic surgery converted the open postero-lateral thoracotomy with left upper lobectomy, mediastinal lymph node dissection, pathology consistent with stage IIIa adenocarcinoma Tobacco dependence with recent cessation in May 2023 Obstructive sleep apnea with home CPAP use Hypertension BPH Anxiety/depression Frequent marijuana use Acute blood loss anemia, hypotension due to hypovolemic shock, recovered after blood transfusion Left lung atelectasis/pneumothorax with incomplete expansion of the left lung, eft vocal cord paralysis, physiologic obstructing left mainstem bronchus erythematous and inflamed left upper lobe stump, with obvious rotation anatomic distortion and narrowing of the left lower lobe bronchus orifice, status post bronchoscopy by Dr. Myers with suctioning of mucous plugs Plan: We will discontinue his left pleural chest tube today. Repeat a two-view chest x-ray in the a.m. of 11/26/2023. Bronchoscopy was canceled for today as his chest x-ray has improved. Continue antibiotics, continue Solu-Medrol every 12 hours. Likely transition to oral corticosteroids tomorrow November 26, 2023. Continue oral Lasix every 8 hours. Continue current medication regimen Encourage incentive spirometry use 10 times every hour while awake. Increase activity, ambulate as tolerated. Will monitor daily labs and chest x-rays. Pain control per current medication regimen. GI/DVT prophylaxis. More recommendations to follow based on patient's clinical course. Time with Patient: Greater than 30
--- NOTE | 2023-11-25 12:20 | P.PN ---
Subjective Progress Note Date: 11/25/23 Patient is a 73-year-old white male with past medical history significant for left upper lung nodule. Patient did reportedly have a PET scan, showing an FDG avid spiculated 17 x 15 mm lung nodule. He underwent Ion bronchoscopy with Dr. Myers on 10/18/2023, which was essentially nondiagnostic. He was referred to cardiothoracic surgery for diagnosis. Yesterday, patient underwent bronchoscopy with a left robotic assisted thorascopic surgery converted to open posterior lateral thoracotomy with left upper lobectomy and mediastinal lymph node dissection. The OR report indicated some nodes matted and adherent to the truncus branch of the pulmonary artery. Frozen section analysis revealed non-sma ll cell carcinoma. Intraoperatively, the patient was noted to have extensive blood loss, total of 3 L EBL. He was converted to open procedure. Hemostasis was able to be achieved. He has received a total of 5 units PRBCs, 1.2 L of albumin, and 3 L of crystalloid. He is currently in the intensive care unit, intubated to mechanical ventilator. He has a left lateral thoracotomy incision with 2 chest tubes with a total of 170 mL of serosanguineous output collectively. 1 has a persistent intermittent airleak. They are attached to 2 separate atriums with -20 cm H2O suction. Postoperative chest x-ray shows the endotracheal tube approximately 4 to 5 cm above the mildred, in satisfactory position. Orogastric tube likely extending in the proximal duodenum. The two left-sided chest tubes are demonstrated, with new left-sided volume loss, without visualized pneumothorax or fluid collection. Initial postoperative ventilator settings were AC, respiratory rate 16, tidal volume 500, FiO2 100%, and PEEP of 5. Follow-up ABGs included a PaO2 of greater than 420, P CO2 of 50, pH of 7.23. My supervising physician adjusted the respiratory rate to 20 and FiO2 has been cut down to 50%. Patient is currently synchronous on mechanical ventilator. He is sedated on propofol which is infusing at 40 mcg/kg/min. Levophed is also infusing at 0.05 mcg/kg/min. This is an improvement, as the patient had some substantial hypotension intraoperatively. The nurse has been able to titrate down on the Levophed after completing the above-mentioned blood products. No significant hemorrhaging from chest tubes at this time. Fluid appears serosanguineous. Most recent hemoglobin 8.9 g/dL, hematocrit 27.2, platelets 134,000. Coagulation profile includes a PT of 14, INR of 1.3, and a PTT of 26.5. Most recent available BMP: Sodium 141, potassium 3.2, chloride 107, serum bicarb 22, BUN 18, creatinine 0.73, glucose 321. Patient also has a 3M sodium bicarb in D5W infusion at 200 MLS per hour. This is a contributing to some hyperglycemia. Progress note dated November 16, 2023. 73-year-old male with a history of lung cancer. The patient was initially seen by my partner for a left upper lobe pulmonary nodule. Robotic bronchoscopy was nondiagnostic. The patient underwent a presumed robotically assisted thoracoscopic excision of the pulmonary nodule, but because of the bleeding, the patient had an open procedure, and came back to the intensive care unit on the ventilator. He was extubated the very next day. Clinically he is doing much better. He is seen today in room 260. Currently, the patient is on 2 L. He did use his home CPAP device last night. He is not on any IVs. He is postop day #2. He has [address], both with small leaks. Both chest tubes have been placed to waterseal. Current labs include a white count 7.3, hemoglobin 9.2, hematocrit 27.5, and a platelet count of 122,000. Sodium 133, potassium 3.9, chloride 99, CO2 31, BUN 19, creatinine 0.84. Glucose 148. Calcium 7.5. Chest x-ray shows 2 left-sided chest tubes, and no evidence of pneumothorax. Progress note dated November 17, 2023. 73-year-old male with a history of lung cancer. The patient was initially seen by my partner, and had robotic bronchoscopy. This was for a left upper lobe pulmonary nodule. The procedure was nondiagnostic. The patient had a surgical procedure done here, and instead of having a robotically assisted thoracoscopic procedure, the patient ended up having a left-sided open procedure. The surgery was done by Dr. Brooks. The patient lost quite a bit of blood in the operating room. The patient is doing much better now. He is seen today in room 362. He is on 3 L of oxygen. No IV fluids. 2 chest tubes remain on the left side. He has leaks on both chest tubes. Current labs include a white count 7.4, hemoglobin 8.2, hematocrit 24.3, platelet count 133,000. Sodium 131, potassium 3.8, chlorides 98, CO2 26, BUN 27, and creatinine 0.94. Glucose is 98. Calcium 7.7. Chest x-ray shows 2 left-sided chest tubes in place. There is a persistent left apical pneumothorax. There is also worsened aeration of the left lung. Progress note dated November 18, 2023. 73-year-old male with a history of lung cancer. The patient is resting comfortably, and is seen today in room 362. He continues with 2 left-sided chest tubes. Small leaks are noted. He is on oxygen, by nasal cannula at 2 L. The patient's not receiving any IV fluids. Current labs include a white count 7.7, hemoglobin 8.4, hematocrit 24.4, and platelet count 156,000. Sodium 134, potassium 4.3, chlorides 101, CO2 28, BUN 21, creatinine 0.65. Chest x-ray shows stable postsurgical changes in the left lung from the left upper lobectomy and mediastinal lymph node dissection. Chest tubes are noted. A small pneumothorax is noted. On 11/19/2023, the patient is being seen for a follow-up. The patient is postop day #5 following robotic assisted open posterior lateral thoracotomy with left upper lobectomy and mediastinal lymph node dissection. The patient is currently on 2 L of oxygen by nasal cannula. He is less short of breath compared to yesterday. The output from the left posterior chest tube is low in the order of 250 cc over the past 24 hours and output from the anterior chest tube is around 460 cc over the past 24 hours. There is only intermittent air leak from the anterior chest tube. There is still ongoing volume loss in the left lung and there is incomplete reexpansion of the left lower lobe. Based on that, a CAT scan of the chest was done and the patient was found to have postsurgical changes in the left lung with a small to moderate-sized left-sided pneumothorax. The chest tubes are in place. There is partial atelectasis of the left lung with an area of consolidation. The patient also has some postsurgical changes in the left lateral chest wall with a hematoma identified in the left lateral chest wall space between fifth and seventh rib. Pain is under adequate control with using incentive spirometer. Is ambulating. Sodium is at 135, BUN is 21 with a creatinine of 0.9. The risk is 6.2 with a hemoglobin 8.6 and platelet count of 231. t On 11/20/2023, the patient is being seen for a follow-up. The patient is sitting up in the chair and the patient is calm and comfortable. The patient is post left upper lobectomy and mediastinal lymph node dissection. Nevertheless, subsequent follow-up chest x-ray showed volume loss in the left lung. The chest x-ray from today is showing postlumpectomy changes in the left lung along with the chest tubes and anterior and posterior chest tube. There is ongoing opacification throughout the left hemithorax with incomplete expansion of the left lung. As such, the patient is currently n.p.o. and the patient will undergo a diagnostic bronchoscopy today. CAT scan from yesterday was noted and it was also positive for a moderate-sized left-sided pneumothorax. The patient is currently on 2 L of oxygen by nasal cannula. Chest tube output was noted and the patient is having a total of 250 cc of serosanguineous drainage from the anterior apical chest tube and 460 cc from the posterior chest tube. Note that the posterior chest tube has no air leak and there is some intermittent air leak involving the anterior chest tube. Nevertheless, the patient is calm and comfortable. The blood work was noted that the patient has a hemoglobin of 8.6 with a white cell count 7.2, BUN is 20 mg of 0.7 and a sodium levels at 136. On 11/21/2023, the patient has no specific complaints. He continues to be hoarse and left vocal cord paralysis was noted on his bronchoscopy that was done yesterday. The same time, there was significant narrowing of the orifice of the left lower lobe bronchus. Discussed the case with the thoracic surgeon. Repeat bronchoscopy is to be done tomorrow. Meanwhile, the patient's chest x-ray from today shows a left-sided pneumothorax and a left-sided chest tube is in place. Noted the posterior chest tube was removed yesterday. The size of the pneumothorax is larger compared to yesterday. There is no evidence of any air leak in his chest tube. The patient is currently postop day #. There is a bronchoscopy yesterday, copious amount of mucous plugs were also identified in the left mainstem patient was started on IV cefepime. The stump was intact. Nevertheless, there was significant swelling and encroachment on the left lower lobe orifice and based on that we opted to start the patient on steroids. Repeat bronchoscopy to be done tomorrow. No other new complaints otherwise for now. Afebrile. Hemodynamically stable. Using incentive spirometer. On today's evaluation of 11/22/2023, the patient is on room air oxygen. He has no specific complaints. I had a lengthy discussion regarding his case along with the thoracic surgeon, Dr. Brooks and the plan is to repeat the bronchoscopy and do another airway inspection to reevaluate the patency of the left lower lobe bronchus. As mentioned, the stump is very close to the orifice of the left lower lobe bronchus and there was anatomic obstruction with significant narrowing and excess amount of respiratory secretions that were suctioned out from the distal left mainstem bronchus. The patient is currently on IV antibiotics and the patient is currently on IV cefepime. He was started also on IV steroids. His blood work from today shows a white cell count of 9.1 with a hemoglobin of 8.4, BUN is 29 and a creatinine of 0.7. He remains hoarse and this is attributed to a left vocal cord paralysis as the patient had significant malignant lymphadenopathy in the AP window involving the recurrent laryngeal nerve on the left. On 11/23/2023, I am seeing the patient for a follow-up. The patient is doing well. He remains hoarse related to his vocal cord paralysis. Nevertheless, he remains on room air oxygen. No significant respite difficulties at rest. He is ambulating. The left-sided chest tube is still in place. I noted that the patient has some ongoing intermittent airleak. The bronchoscopy was done yesterday and therapeutic airway suctioning was done. Repeat chest x-ray from today showing some interval improvement in aeration of the left lung. There are some ongoing volume loss in the left hemithorax compared to the right and the patient has undergone a previous left upper lobe resection. There is also a small 5% left apical pneumothorax still present and the size of the pneumothorax is improved considerably. The patient had a bronchoscopy endobronchial lavage and mucous plugs were removed. The culture still pending for now. BUN 32 with a creatinine of 0 point manage abdominal is at 137. The white cell count is at 10.3 with a hemoglobin of 8.4. The patient remains on DuoNeb nebulized treatments [id number]. The patient remains on IV cefepime. The patient remains on IV Solu-Medrol. On today's evaluation of 11/24/2023, the patient is on room air oxygen. Sitting up in the chair. No specific complaints. Chest tube is still in place. No evidence of any air leak. Repeat chest x-ray was done and showed volume loss in the left lung. This is consistent with lobectomy. There is questionable 5% pneumothorax in the left apex. Hemodynamically stable. Sputum Gram stain and culture has been negative endobronchial lavage from the left lower lobe was also negative. The patient remains on IV cefepime. BUN 34 with a creatinine of 0.8. Sodium levels at 136. WBC count is 11.4 with a hemoglobin 9.0 and a platelet count of 578. Remains on bronchodilators. Remains on IV cefepime. Remains on IV Solu-Medrol 60 mg every 12 hours. Using incentive spirometer. Ambulating. Output from the chest tube is minimal at this point in time. 11/25/2023, I am seeing the patient for a follow-up. The patient is doing extremely well on room air oxygen. Repeat chest x-ray was done that showed further improvement aeration of the left lung. No evidence of any pneumothorax. The patient is postthoracotomy and left upper lobe resection. No significant complaints otherwise. Remains on bronchodilators. Remains on IV cefepime. Remains on IV Solu-Medrol. Ambulating. Surgical wound site over the left chest area is dry clean and intact. Chest tube is in place and there is no evidence of any air leak. Objective - Vital Signs Vital signs: Vital Signs Temp 97.7 F 11/25/23 08:38 Pulse 71 11/25/23 08:38 Resp 18 11/25/23 08:38 BP 123/74 11/25/23 08:38 Pulse Ox 99 11/25/23 08:38 FiO2 40 11/15/23 10:29 Intake & Output 11/24/23 11/25/23 11/25/23 18:59 06:59 18:59 Intake Total 590 10 10 Output Total 1018 1717 237 Balance -428 -0582 -829 Weight 88.8 kg Intake: IV 10 10 10 Invasive Line 9 10 10 10 Oral 580 Output: Chest Tube Drainage 43 27 12 L pleural CHT 1 43 27 12 Urine 975 1450 225 Other: Voiding Method Urinal Urinal # Bowel Movements 1 ABP, PAP, CO, CI - Last Documented Arterial Blood Pressure 120/52 - Exam No acute distress, oriented 3. The patient is currently on room air oxygen. His voice remains hoarse. HEENT examination is grossly unremarkable. Mucous membranes are moist. No oral lesions. Neck supple. Full range of motion. No adenopathy thyromegaly or neck vein distention. Cardiovascular examination reveals regular rhythm rate. S1-S2 normal. No S3 or S4. No discernible murmur noted. Lungs reveal scattered bilateral rhonchi, left greater than right. No wheezes or crackles. Breath sounds equal. The patient has a single left anterior chest tube. Diminished breath on the left compared to the right. No evidence of any air leak. Abdomen soft bowel sounds are heard. No masses or tenderness. Extremities are intact. No cyanosis clubbing or edema. Skin is without rash or lesion. Neurologic examination is brief but nonfocal. - Labs CBC & Chem 7: 11/24/23 10:14 11/24/23 10:14 Labs: Abnormal Lab Results - Last 24 Hours (Table) 11/24/23 11/24/23 11/24/23 Range/Units 10:14 10:14 11:34 WBC 11.4 H (3.8-10.6) k/uL RBC 2.94 L (4.30-5.90) m/uL Hgb 9.0 L (13.0-17.5) gm/dL Hct 28.4 L (39.0-53.0) % Plt Count 578 H (150-450) k/uL Sodium 136 L (137-145) mmol/L BUN 34 H (9-20) mg/dL Glucose 129 H (74-99) mg/dL POC Glucose (mg/dL) 144 H (70-110) mg/dL 11/24/23 11/24/23 11/25/23 Range/Units 16:48 20:11 06:10 WBC (3.8-10.6) k/uL RBC (4.30-5.90) m/uL Hgb (13.0-17.5) gm/dL Hct (39.0-53.0) % Plt Count (150-450) k/uL Sodium (137-145) mmol/L BUN (9-20) mg/dL Glucose (74-99) mg/dL POC Glucose (mg/dL) 188 H 140 H 147 H (70-110) mg/dL Assessment and Plan Plan: Status postoperative day # 10 following bronchoscopy with a left robotic assisted thorascopic surgery converted to open posterior lateral thoracotomy with left upper lobectomy and mediastinal lymph node dissection. The OR report indicated some nodes matted and adherent to the truncus branch of the pulmonary artery. Frozen section analysis reportedly revealed non-small cell carcinoma. The final pathology was consistent with, adenocarcinoma, stage III. Left lung atelectasis/pneumothorax. Bronchoscopy was done and there was significant narrowing and encroachment of the left lower lobe bronchial orifice. There is also a swollen distal left mainstem bronchus and the stump which is infected causing significant amount of engorgement in the left lower lobe bronchus orifice. The bronchial lavage from the left lower lobe is still pending and the patient is currently on IV cefepime. The patient is also on IV Solu-Medrol. Chest x-ray findings shows improvement in the aeration of the left lower lobe and there is no evidence of any pneumothorax Acute hypoxic respiratory failure currently on room air oxygen Shortness of breath, secondary to above, improved Stage III non-small cell lung cancer/adenocarcinoma. 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 History of obstructive sleep apnea. History of marijuana use. Former tobacco smoker, quitting May 2023. Plan: Clinically stable No pneumothorax and chest tube will likely be removed today No need for another bronchoscopy Titrate O2 to maintain saturation above 90%, currently on room air oxygen Monitor the output from the chest tube Continue incentive spirometer Awaiting cultures from the left lower lobe Continue IV Solu-Medrol Continue IV cefepime Will continue to follow
[2023-11-25 16:22] LABS: Glucose,Whole Blood 179 mg/dL (70-110)
[2023-11-25] MEDS: traMADol 50 MG TAB PO PRN (17:38)
[2023-11-25 20:07] LABS: Glucose,Whole Blood 250 mg/dL (70-110)
[2023-11-26 06:14] LABS: Glucose,Whole Blood 149 mg/dL (70-110)
[2023-11-26 07:30] LABS: Basophils # (A) 0.1 k/uL (0-0.2); Basophils % (A) 1 %; Eosinophils % (A) 0 %; HCT 30.1 % (39.0-53.0); HGB 9.7 gm/dL (13.0-17.5); Hypochromasia Slight; Lymphocytes # (A) 0.9 k/uL (1.0-4.8); Lymphocytes % (A) 5 %; MCH 31.5 pg (25.0-35.0); MCHC 32.4 g/dL (31.0-37.0); MCV 97.4 fL (80.0-100.0); Mean Platelet Volume 7.7; Monocytes # (A) 1.1 k/uL (0-1.0); Monocytes % (A) 6 %; Neutrophils # (A) 15.2 k/uL (1.3-7.7); Neutrophils % (A) 88 %; Platelet Count 632 k/uL (150-450); RBC 3.09 m/uL (4.30-5.90); RDW 14.4 % (11.5-15.5); WBC 17.3 k/uL (3.8-10.6)
[2023-11-26 07:41] LABS: ALT 19 U/L (4-49); AST 18 U/L (17-59); African American GFR (CKD) >90 (>60 ml/min/1.73 sqM); Albumin 3.5 g/dL (3.5-5.0); Alkaline Phosphatase 80 U/L (38-126); Anion Gap 7 mmol/L; Blood Urea Nitrogen 39 mg/dL (9-20); Calcium 8.9 mg/dL (8.4-10.2); Carbon Dioxide 26 mmol/L (22-30); Chloride 102 mmol/L (98-107); Glucose 129 mg/dL (74-99); Non-African American GFR(CKD) 86 (>60 ml/min/1.73 sqM); Potassium 4.1 mmol/L (3.5-5.1); Sodium 135 mmol/L (137-145); Total Bilirubin 0.5 mg/dL (0.2-1.3)
--- NOTE | 2023-11-26 07:42 | XR ---
EXAMINATION TYPE: XR chest 2V DATE OF EXAM: 11/26/2023 COMPARISON: 11/25/2023 INDICATION: Left upper lobectomy TECHNIQUE: Frontal and lateral views of the chest are obtained. FINDINGS: The heart size is normal. The pulmonary vasculature is normal. Left lower lung field linear opacity is present left apical pneumothorax is present. Air fluid level may be within the mid left lung. Chest tubes been removed. Right lung is clear Prior left lateral rib fractures evident. IMPRESSION: 1. Left apical pneumothorax. 2. Postsurgical changes and/or stable postsurgical changes left lung base. 3. Prior left rib fractures
[2023-11-26 08:58] VITALS: RESP 20
[2023-11-26 11:19] VITALS: BP 120/70; TEMP 97.8
[2023-11-26 11:28] LABS: Glucose,Whole Blood 197 mg/dL (70-110)
[2023-11-26 13:23] VITALS: PULSE 86
--- NOTE | 2023-11-26 14:09 | P.PN ---
Subjective Progress Note Date: 11/26/23 Principal diagnosis: Postoperative day #11, status post robotic assisted thoracoscopic surgery converted to open posterior lateral thoracotomy with left upper lobectomy and mediastinal node dissection Patient is a 73-year-old white male with past medical history significant for left upper lung nodule. Patient did reportedly have a PET scan, showing an FDG avid spiculated 17 x 15 mm lung nodule. He underwent Ion bronchoscopy with Dr. Myers on 10/18/2023, which was essentially nondiagnostic. He was referred to cardiothoracic surgery for diagnosis. Yesterday, patient underwent bronchoscopy with a left robotic assisted thorascopic surgery converted to open posterior lateral thoracotomy with left upper lobectomy and mediastinal lymph node dissection. The OR report indicated some nodes matted and adherent to the truncus branch of the pulmonary artery. 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 Intraoperatively, the patient was noted to have extensive blood loss, total of 3 L EBL. He was converted to open procedure. Hemostasis was able to be achieved. He has received a total of 5 units PRBCs, 1.2 L of albumin, and 3 L of crystalloid. He is currently in the intensive care unit, intubated to mechanical ventilator. He has a left lateral thoracotomy incision with 2 chest tubes with a total of 170 mL of serosanguineous output collectively. 1 has a persistent intermittent airleak. They are attached to 2 separate atriums with -20 cm H2O suction. Postoperative chest x-ray shows the endotracheal tube approximately 4 to 5 cm above the mildred, in satisfactory position. Orogastric tube likely extending in the proximal duodenum. The two left-sided chest tubes are demonstrated, with new left-sided volume loss, without visualized pneumothorax or fluid collection. Initial postoperative ventilator settings were AC, respiratory rate 16, tidal volume 500, FiO2 100%, and PEEP of 5. Follow-up ABGs included a PaO2 of greater than 420, P CO2 of 50, pH of 7.23. My supervising physician adjusted the respiratory rate to 20 and FiO2 has been cut down to 50%. Patient is currently synchronous on mechanical ventilator. He is sedated on propofol which is infusing at 40 mcg/kg/min. Levophed is also infusing at 0.05 mcg/kg/min. This is an improvement, as the patient had some substantial hypotension intraoperatively. The nurse has been able to titrate down on the Levophed after completing the above-mentioned blood products. No significant hemorrhaging from chest tubes at this time. Fluid appears serosanguineous. Most recent hemoglobin 8.9 g/dL, hematocrit 27.2, platelets 134,000. Coagulation profile includes a PT of 14, INR of 1.3, and a PTT of 26.5. Most recent available BMP: Sodium 141, potassium 3.2, chloride 107, serum bicarb 22, BUN 18, creatinine 0.73, glucose 321. Patient also has a 3M sodium bicarb in D5W infusion at 200 MLS per hour. This is a contributing to some hyperglycemia. Progress note dated November 16, 2023. 73-year-old male with a history of lung cancer. The patient was initially seen by my partner for a left upper lobe pulmonary nodule. Robotic bronchoscopy was nondiagnostic. The patient underwent a presumed robotically assisted thoracoscopic excision of the pulmonary nodule, but because of the bleeding, the patient had an open procedure, and came back to the intensive care unit on the ventilator. He was extubated the very next day. Clinically he is doing much better. He is seen today in room 260. Currently, the patient is on 2 L. He did use his home CPAP device last night. He is not on any IVs. He is postop day #2. He has [address], both with small leaks. Both chest tubes have been placed to waterseal. Current labs include a white count 7.3, hemoglobin 9.2, hematocrit 27.5, and a platelet count of 122,000. Sodium 133, potassium 3.9, chloride 99, CO2 31, BUN 19, creatinine 0.84. Glucose 148. Calcium 7.5. Chest x-ray shows 2 left-sided chest tubes, and no evidence of pneumothorax. Progress note dated November 17, 2023. 73-year-old male with a history of lung cancer. The patient was initially seen by my partner, and had robotic bronchoscopy. This was for a left upper lobe pulmonary nodule. The procedure was nondiagnostic. The patient had a surgical procedure done here, and instead of having a robotically assisted thoracoscopic procedure, the patient ended up having a left-sided open procedure. The surgery was done by Dr. Brooks. The patient lost quite a bit of blood in the operating room. The patient is doing much better now. He is seen today in room 362. He is on 3 L of oxygen. No IV fluids. 2 chest tubes remain on the left side. He has leaks on both chest tubes. Current labs include a white count 7.4, hemoglobin 8.2, hematocrit 24.3, platelet count 133,000. Sodium 131, potassium 3.8, chlorides 98, CO2 26, BUN 27, and creatinine 0.94. Glucose is 98. Calcium 7.7. Chest x-ray shows 2 left-sided chest tubes in place. There is a persistent left apical pneumothorax. There is also worsened aeration of the left lung. Progress note dated November 18, 2023. 73-year-old male with a history of lung cancer. The patient is resting comfortably, and is seen today in room 362. He continues with 2 left-sided chest tubes. Small leaks are noted. He is on oxygen, by nasal cannula at 2 L. The patient's not receiving any IV fluids. Current labs include a white count 7.7, hemoglobin 8.4, hematocrit 24.4, and platelet count 156,000. Sodium 134, potassium 4.3, chlorides 101, CO2 28, BUN 21, creatinine 0.65. Chest x-ray shows stable postsurgical changes in the left lung from the left upper lobectomy and mediastinal lymph node dissection. Chest tubes are noted. A small pneumothorax is noted. On 11/19/2023, the patient is being seen for a follow-up. The patient is postop day #5 following robotic assisted open posterior lateral thoracotomy with left upper lobectomy and mediastinal lymph node dissection. The patient is currently on 2 L of oxygen by nasal cannula. He is less short of breath compared to yesterday. The output from the left posterior chest tube is low in the order of 250 cc over the past 24 hours and output from the anterior chest tube is around 460 cc over the past 24 hours. There is only intermittent air leak from the anterior chest tube. There is still ongoing volume loss in the left lung and there is incomplete reexpansion of the left lower lobe. Based on that, a CAT scan of the chest was done and the patient was found to have postsurgical changes in the left lung with a small to moderate-sized left-sided pneumothorax. The chest tubes are in place. There is partial atelectasis of the left lung with an area of consolidation. The patient also has some postsurgical changes in the left lateral chest wall with a hematoma identified in the left lateral chest wall space between fifth and seventh rib. Pain is under adequate control with using incentive spirometer. Is ambulating. Sodium is at 135, BUN is 21 with a creatinine of 0.9. The risk is 6.2 with a hemoglobin 8.6 and platelet count of 231. t On 11/20/2023, the patient is being seen for a follow-up. The patient is sitting up in the chair and the patient is calm and comfortable. The patient is post left upper lobectomy and mediastinal lymph node dissection. Nevertheless, subsequent follow-up chest x-ray showed volume loss in the left lung. The chest x-ray from today is showing postlumpectomy changes in the left lung along with the chest tubes and anterior and posterior chest tube. There is ongoing opacification throughout the left hemithorax with incomplete expansion of the left lung. As such, the patient is currently n.p.o. and the patient will undergo a diagnostic bronchoscopy today. CAT scan from yesterday was noted and it was also positive for a moderate-sized left-sided pneumothorax. The patient is currently on 2 L of oxygen by nasal cannula. Chest tube output was noted and the patient is having a total of 250 cc of serosanguineous drainage from the anterior apical chest tube and 460 cc from the posterior chest tube. Note that the posterior chest tube has no air leak and there is some intermittent air leak involving the anterior chest tube. Nevertheless, the patient is calm and com fortable. The blood work was noted that the patient has a hemoglobin of 8.6 with a white cell count 7.2, BUN is 20 mg of 0.7 and a sodium levels at 136. On 11/21/2023, the patient has no specific complaints. He continues to be hoarse and left vocal cord paralysis was noted on his bronchoscopy that was done yesterday. The same time, there was significant narrowing of the orifice of the left lower lobe bronchus. Discussed the case with the thoracic surgeon. Repeat bronchoscopy is to be done tomorrow. Meanwhile, the patient's chest x-ray from today shows a left-sided pneumothorax and a left-sided chest tube is in place. Noted the posterior chest tube was removed yesterday. The size of the pneumothorax is larger compared to yesterday. There is no evidence of any air leak in his chest tube. The patient is currently postop day #. There is a bronchoscopy yesterday, copious amount of mucous plugs were also identified in the left mainstem patient was started on IV cefepime. The stump was intact. Nevertheless, there was significant swelling and encroachment on the left lower lobe orifice and based on that we opted to start the patient on steroids. Repeat bronchoscopy to be done tomorrow. No other new complaints otherwise for now. Afebrile. Hemodynamically stable. Using incentive spirometer. On today's evaluation of 11/22/2023, the patient is on room air oxygen. He has no specific complaints. I had a lengthy discussion regarding his case along with the thoracic surgeon, Dr. Brooks and the plan is to repeat the bronchoscopy and do another airway inspection to reevaluate the patency of the left lower lobe bronchus. As mentioned, the stump is very close to the orifice of the left lower lobe bronchus and there was anatomic obstruction with significant narrowing and excess amount of respiratory secretions that were suctioned out from the distal left mainstem bronchus. The patient is currently on IV antibiotics and the patient is currently on IV cefepime. He was started also on IV steroids. His blood work from today shows a white cell count of 9.1 with a hemoglobin of 8.4, BUN is 29 and a creatinine of 0.7. He remains hoarse and this is attributed to a left vocal cord paralysis as the patient had significant malignant lymphadenopathy in the AP window involving the recurrent laryngeal nerve on the left. On 11/23/2023, I am seeing the patient for a follow-up. The patient is doing well. He remains hoarse related to his vocal cord paralysis. Nevertheless, he remains on room air oxygen. No significant respite difficulties at rest. He is ambulating. The left-sided chest tube is still in place. I noted that the patient has some ongoing intermittent airleak. The bronchoscopy was done yesterday and therapeutic airway suctioning was done. Repeat chest x-ray from today showing some interval improvement in aeration of the left lung. There are some ongoing volume loss in the left hemithorax compared to the right and the patient has undergone a previous left upper lobe resection. There is also a small 5% left apical pneumothorax still present and the size of the pneumothorax is improved considerably. The patient had a bronchoscopy endobronchial lavage and mucous plugs were removed. The culture still pending for now. BUN 32 with a creatinine of 0 point manage abdominal is at 137. The white cell count is at 10.3 with a hemoglobin of 8.4. The patient remains on DuoNeb nebulized treatments [id number]. The patient remains on IV cefepime. The patient remains on IV Solu-Medrol. On today's evaluation of 11/24/2023, the patient is on room air oxygen. Sitting up in the chair. No specific complaints. Chest tube is still in place. No evidence of any air leak. Repeat chest x-ray was done and showed volume loss in the left lung. This is consistent with lobectomy. There is questionable 5% pneumothorax in the left apex. Hemodynamically stable. Sputum Gram stain and culture has been negative endobronchial lavage from the left lower lobe was also negative. The patient remains on IV cefepime. BUN 34 with a creatinine of 0.8. Sodium levels at 136. WBC count is 11.4 with a hemoglobin 9.0 and a platelet count of 578. Remains on bronchodilators. Remains on IV cefepime. Remains on IV Solu-Medrol 60 mg every 12 hours. Using incentive spirometer. Ambulating. Output from the chest tube is minimal at this point in time. 11/25/2023, I am seeing the patient for a follow-up. The patient is doing extremely well on room air oxygen. Repeat chest x-ray was done that showed further improvement aeration of the left lung. No evidence of any pneumothorax. The patient is postthoracotomy and left upper lobe resection. No significant complaints otherwise. Remains on bronchodilators. Remains on IV cefepime. Re candida on IV Solu-Medrol. Ambulating. Surgical wound site over the left chest area is dry clean and intact. Chest tube is in place and there is no evidence of any air leak. Reevaluate today on 11/26/2023, patient is doing well, he he was told by thoracic surgery that he may be discharged home today. Patient is doing great, asymptomatic, hardly any cough no wheezing no shortness of breath no chest pain.O2 saturation is 94% on room air. WBC count is 17.3 hemoglobin 9.7, basic metabolic profile is normal and renal profile is normal. Reviewed chest x-ray today, there is a small tiny left apical pneumothorax and postsurgical changes. Objective - Vital Signs Vital signs: Vital Signs Temp 97.8 F 11/26/23 11:18 Pulse 86 11/26/23 13:23 Resp 20 11/26/23 11:18 BP 120/70 11/26/23 11:18 Pulse Ox 94 L 11/26/23 11:18 FiO2 40 11/15/23 10:29 Intake & Output 11/25/23 11/26/23 11/26/23 18:59 06:59 18:59 Intake Total 364 240 460 Output Total 1137 1000 Balance -773 -760 460 Weight 88.4 kg Intake: IV 10 Invasive Line 9 10 Oral 354 240 460 Output: Chest Tube Drainage 12 L pleural CHT 1 12 Urine 1125 1000 Other: Voiding Method Urinal Urinal # Voids 2 ABP, PAP, CO, CI - Last Documented Arterial Blood Pressure 120/52 - Exam General: Reveals 73-year-old white male in no distress Skin: Skin is warm and dry and no rashes or lesions are noted. Eye: Pupils are equal, round and reactive to light, extra-ocular movements are intact; there is normal conjunctiva bilaterally. Ears, nose, mouth and throat: There are moist mucous membranes and no oral lesions. Neck: The neck is supple, there is no tenderness or JVD. Cardiovascular: There is a regular rate and rhythm. No murmur, rub or gallop is appreciated. Respiratory: Clear bilaterally no rhonchi no wheezes Gastrointestinal: Soft, non-distended, non-tender abdomen without masses or organomegaly noted. There is no rebound or guarding present. Bowel sounds are unremarkable. Back: There is no tenderness to palpation in the midline. There is no obvious deformity. Musculoskeletal: Normal ROM, no tenderness, There is no pedal edema. There is no calf tenderness or swelling. No cords were appreciated. Neurological: CN II-XII intact, Cranial nerves III through XII are intact. There are no obvious motor or sensory deficits. Coordination appears grossly intact. Speech is normal. Psychiatric: Cooperative, appropriate mood & affect, normal judgment. - Labs CBC & Chem 7: 11/26/23 07:14 11/26/23 07:14 Labs: Abnormal Lab Results - Last 24 Hours (Table) 11/25/23 11/25/23 11/26/23 Range/Units 16:19 20:05 06:12 WBC (3.8-10.6) k/uL RBC (4.30-5.90) m/uL Hgb (13.0-17.5) gm/dL Hct (39.0-53.0) % Plt Count (150-450) k/uL Neutrophils # (1.3-7.7) k/uL Lymphocytes # (1.0-4.8) k/uL Monocytes # (0-1.0) k/uL Sodium (137-145) mmol/L BUN (9-20) mg/dL Glucose (74-99) mg/dL POC Glucose (mg/dL) 179 H 250 H 149 H (70-110) mg/dL Total Protein (6.3-8.2) g/dL 11/26/23 11/26/23 11/26/23 Range/Units 07:14 07:14 11:26 WBC 17.3 H (3.8-10.6) k/uL RBC 3.09 L (4.30-5.90) m/uL Hgb 9.7 L (13.0-17.5) gm/dL Hct 30.1 L (39.0-53.0) % Plt Count 632 H (150-450) k/uL Neutrophils # 15.2 H (1.3-7.7) k/uL Lymphocytes # 0.9 L (1.0-4.8) k/uL Monocytes # 1.1 H (0-1.0) k/uL Sodium 135 L (137-145) mmol/L BUN 39 H (9-20) mg/dL Glucose 129 H (74-99) mg/dL POC Glucose (mg/dL) 197 H (70-110) mg/dL Total Protein 6.0 L (6.3-8.2) g/dL Assessment and Plan Assessment: Impression: Stage III non-small cell lung cancer/adenocarcinoma Postoperative day #11 following bronchoscopy with a left robotic assisted thorascopic surgery converted to open posterior lateral thoracotomy with left upper lobectomy and mediastinal lymph node dissection. The OR report indicated some nodes matted and adherent to the truncus branch of the pulmonary artery. Left vocal cord paralysis secondary to above. Unexpected. Benign essential hypertension Obstructive sleep apnea syndrome Ex-smoker Chronic obstructive pulmonary disease Recommendation: Clinically stable No need for bronchoscopy Will clear the patient for discharge if cleared by thoracic surgery on consultation Continue outpatient incentive spirometry Continue bronchodilators Patient to follow-up on outpatient basis with Dr. Myers Time with Patient: Less than 30
--- NOTE | 2023-11-26 14:53 | P.DS ---
Providers Date of admission: 11/14/23 09:43 Expected date of discharge: 11/26/23 Attending physician: Horace Brooks MD Consults: 11/14/23 21:00 Consult Physician Stat Consulting Provider: Uriel Montoya Consult Reason/Comments: ICU management Do you want consulting provider notified?: Already Contacted 11/15/23 00:44 Consult Physician Routine Consulting Provider: Uriel Montoya Consult Reason/Comments: post lobectomy Do you want consulting provider notified?: Yes Primary care physician: Braydon Villarreal Hospital Course: FINAL DIAGNOSIS: Lung nodule, non-small cell lung cancer, status post bronchoscopy, left robotic assisted thorascopic surgery converted the open postero-lateral thoracotomy with left upper lobectomy, mediastinal lymph node dissection, pathology consistent with stage IIIa adenocarcinoma Tobacco dependence with recent cessation in May 2023 Obstructive sleep apnea with home CPAP use Hypertension BPH Anxiety/depression Frequent marijuana use Acute blood loss anemia, hypotension due to hypovolemic shock, recovered after blood transfusion Left lung atelectasis/pneumothorax with incomplete expansion of the left lung, left vocal cord paralysis, physiologic obstructing left mainstem bronchus erythematous and inflamed left upper lobe stump, with obvious rotation anatomic distortion and narrowing of the left lower lobe bronchus orifice, status post bronchoscopy by Dr. Myers with suctioning of mucous plugs PRINCIPAL PROCEDURE: 1. Bronchoscopy 2. Left robotic assisted thorascopic surgery converted the open postero-lateral thoracotomy with left upper lobectomy 3. Mediastinal lymph node dissection 4. Intercostal nerve block - 3 levels 5. Bronchoscopy by Dr. Myers with suctioning of mucous plugs HISTORY OF PRESENT ILLNESS: This is a 73-year-old gentleman who follows on an outpatient basis with Dr. Braydon Villarreal for his primary care and with Dr. Christopher Myers for his pulmonary care. In May 2023 the patient was doing some yard work when he became short of breath, anxious and also had some complaints of hoarseness. Subsequently, he went to see his primary care physician and an x-ray was completed. The x-ray was abnormal and for further evaluation the patient underwent a CT scan of the chest on August 13, 2023. The CT scan of the chest revealed a left upper lobe nodule measuring 18 mm in size and scattered smaller nodules measuring 2 mm in the right upper lobe, 2 mm in the right middle lobe, and 5 mm in the lingula. There was some fullness also demonstrated in the AP window. Due to the findings on the CT scan of the chest the patient underwent a PET/CT scan on September 11, 2023 which revealed hypermetabolic left upper lobe pulmonary nodule, measuring 17 x 15 mm in size with an SUV of 23.5, no uptake within the scattered pulmonary nodules that were discussed earlier. It also demonstrated lymphadenopathy in the AP window with extensive uptake, the AP window lymph node was measuring around 2.5 x 2.2 cm in size with an SUV of 19.7. Subsequently, the patient was recommended to undergo a left upper lobe robotic assisted transbronchial biopsy with endobronchial ultrasound to be performed by Dr. Myers which was completed on October 18, 2023, unfortunately the biopsy was inconclusive. The patient was then referred to Dr. Horaec Brooks from cardiothoracic surgery for further evaluation and treatment r ecommendations. Dr. Brooks met with the patient and the patient's , treatment options were discussed including the surgical option. Risk and benefits of of surgery were discussed and knowing and understanding the risks the patient wished to proceed with the surgical option. HOSPITAL COURSE: The patient was brought to the hospital on 11/14/23, taken to the preoperative area, prepared in the usual fashion, and subsequently taken to the operating room where Dr. Brooks performed a left robotic assisted thorascopic surgery converted the open postero-lateral thoracotomy with left upper lobectomy , mediastinal lymph node dissection and intercostal nerve block 3 levels. Eventually he was admitted to intensive care unit, was subsequently extubated and transferred to the third floor cardiac stepdown unit for further monitoring and rehabilitation. The patient did have a small right-sided pneumothorax with continuous airleak postoperatively which was expected after his left upper lobectomy, and on postoperative day #9 his chest tube was removed without incident, and the following morning his chest x-ray was stable. The patient did have some left lung atelectasis/pneumothorax with incomplete expansion of the left lung, left vocal cord paralysis, physiologic obstructing left mainstem bronchus erythematous and inflamed left upper lobe stump, with obvious rotation anatomic distortion and narrowing of the left lower lobe bronchus orifice, and subsequently underwent a bronchoscopy by Dr. Myers with suctioning of mucous plugs. His oxygen was titrated down, he was tolerating oral diet, his pain was controlled, and he was ready to be discharged to home on postoperative day #10. He received written and verbal instruction regarding his medications, activity restrictions, signs and symptoms requiring physician notification, and follow-up appointments. Plan - Discharge Summary Discharge Rx Participant: No New Discharge Prescriptions: New predniSONE See Taper PO DAILY #25 tab Pantoprazole [Protonix] 40 mg PO AC-BRKFST #30 tab Acetaminophen Tab [Tylenol] 650 mg PO Q4HR PRN tab PRN Reason: Mild To Moderate Pain (1 - 6) traMADol HCl [Ultram] 50 mg PO QID PRN #16 tab PRN Reason: pain No Action Sertraline [Zoloft] 50 mg PO HS traZODone HCL [Desyrel] 50 mg PO HS Albuterol Inhaler [Ventolin Hfa Inhaler] 1 - 2 puff INHALATION Q6H PRN PRN Reason: Wheezing Fluticasone Propionate [Fluticasone Propionate Mcdaniel 50 mcg Nasal Mcdaniel] 2 sprays EA NOSTRIL DAILY Tamsulosin [Flomax] 0.4 mg PO DAILY Metoprolol Succinate (ER) [Toprol XL] 50 mg PO HS amLODIPine BESYLATE 10 mg PO DAILY Losartan/Hydrochlorothiazide [Losartan-Hctz 100-25 mg Tab] 1 tab PO DAILY Dutasteride 0.5 mg PO DAILY ALPRAZolam [Xanax] 0.5 mg PO DAILY PRN PRN Reason: Anxiety Discharge Medication List ALPRAZolam [Xanax] 0.5 mg PO DAILY PRN 10/15/23 [History] Albuterol Inhaler [Ventolin Hfa Inhaler] 1 - 2 puff INHALATION Q6H PRN 10/15/23 [History] Dutasteride 0.5 mg PO DAILY 10/15/23 [History] Fluticasone Propionate [Fluticasone Propionate Mcdaniel 50 mcg Nasal Mcdaniel] 2 sprays EA NOSTRIL DAILY 10/15/23 [History] Losartan/Hydrochlorothiazide [Losartan-Hctz 100-25 mg Tab] 1 tab PO DAILY 10/15/23 [History] Metoprolol Succinate (ER) [Toprol XL] 50 mg PO HS 10/15/23 [History] Sertraline [Zoloft] 50 mg PO HS 10/15/23 [History] Tamsulosin [Flomax] 0.4 mg PO DAILY 10/15/23 [History] amLODIPine BESYLATE 10 mg PO DAILY 10/15/23 [History] traZODone HCL [Desyrel] 50 mg PO HS 10/15/23 [History] Acetaminophen Tab [Tylenol] 650 mg PO Q4HR PRN tab 11/26/23 [Rx] Pantoprazole [Protonix] 40 mg PO AC-BRKFST #30 tab 11/26/23 [Rx] predniSONE See Taper PO DAILY #25 tab 11/26/23 [Rx] traMADol HCl [Ultram] 50 mg PO QID PRN #16 tab 11/26/23 [Rx] Follow up Appointment(s)/Referral(s): Horace Brooks MD [STAFF PHYSICIAN] - 1 Week Braydon Villarreal MD [Primary Care Provider] - 1 Week Christopher Myers MD [STAFF PHYSICIAN] - 1 Week Ambulatory/Diagnostic Orders: XR chest 2V [RAD.AMB] Time Frame: 11/29/23, Facility: [facility], Location: [facility] Activity/Diet/Wound Care/Special Instructions: DISCHARGE INSTRUCTIONS: 1. No driving for 2 weeks, or until physician gives their ok. 2. No lifting, pushing, or pulling more than 10 pounds for 2 weeks. The physician will advise of any restriction changes. 3. Continue pain control per as needed orders. Alternate acetaminophen (Tylenol) and ibuprofen (Motrin/Advil) for pain. 4. Continue with incentive spirometry and splinting until otherwise directed by the physician. 5. Leave chest tube dressing for 48 hours. After that, remove all dressings and shower daily. 6. Routine incision care. No powders, lotions, ointments on incisions. 7. Please call surgeon/[employer] for temp greater than 101 F or purulent drainage from incisions. 8. Smoking cessation counseling and program information provided. Quitting smoking is the most important step you can take to improve your health. For additional information and assistance to quit smoking, please call the [place] tobacco quit line (7-573-EOCZ-NOW/ ) or online: [email or web address] Discharge Disposition: HOME SELF-CARE
== END 2023-11-26 15:46 | disposition home or self-care (01) | DRG 163 ==
LOC: 2ORMAIN 09:43 → 2SICU 17:43 → 3SCARD 11-16 16:06
PROVIDERS: ADMIT Thoracic Surgery (Cardiothoracic Vascular Surgery); ATTEND Thoracic Surgery (Cardiothoracic Vascular Surgery)
PROC: 07B70ZZ Excision of Thorax Lymphatic, Open Approach (ICD-10-PCS; 2023-11-14)
PROC: 0BJ08ZZ Inspection of Tracheobronchial Tree, Via Natural or Artificial Opening Endoscopic (ICD-10-PCS; 2023-11-14)
PROC: 3E0T3BZ Introduction of Anesthetic Agent into Peripheral Nerves and Plexi, Percutaneous Approach (ICD-10-PCS; 2023-11-14)
PROC: 0BTG0ZZ Resection of Left Upper Lung Lobe, Open Approach (ICD-10-PCS; principal; 2023-11-14 11:30)
PROC: 0BCB8ZZ Extirpation of Matter from Left Lower Lobe Bronchus, Via Natural or Artificial Opening Endoscopic (ICD-10-PCS; 2023-11-20)
PROC: 0BC78ZZ Extirpation of Matter from Left Main Bronchus, Via Natural or Artificial Opening Endoscopic (ICD-10-PCS; 2023-11-20)
PROC: 0B9J8ZX Drainage of Left Lower Lung Lobe, Via Natural or Artificial Opening Endoscopic, Diagnostic (ICD-10-PCS; 2023-11-20)
PROC: 0BJ08ZZ Inspection of Tracheobronchial Tree, Via Natural or Artificial Opening Endoscopic (ICD-10-PCS; 2023-11-22)
DX: C34.12 Malignant neoplasm of upper lobe, left bronchus or lung (principal); R57.1 Hypovolemic shock; D62 Acute posthemorrhagic anemia; E87.4 Mixed disorder of acid-base balance; J98.11 Atelectasis; J93.82 Other air leak; Z53.31 Laparoscopic surgical procedure converted to open procedure; R73.9 Hyperglycemia, unspecified; E87.6 Hypokalemia; E83.42 Hypomagnesemia; I10 Essential (primary) hypertension; G47.33 Obstructive sleep apnea (adult) (pediatric); Z87.891 Personal history of nicotine dependence; F12.90 Cannabis use, unspecified, uncomplicated; Z85.118 Personal history of other malignant neoplasm of bronchus and lung; F41.9 Anxiety disorder, unspecified; F32.A Depression, unspecified; N40.0 Benign prostatic hyperplasia without lower urinary tract symptoms; J30.81 Allergic rhinitis due to animal (cat) (dog) hair and dander
CPT/HCPCS: 31624; 31645; 36430; 64999; 71045; 71046; 71250; 80048; 80051; 80053; 82805; 83735; 84132; 85025; 85027; 85610; 85730; 86850; 86900; 86901; 86920; 87070; 87205; 88305; 88307; 88309; 88313; 88331; 88341; 88342; 94002; 94003; 94640; 94760

== ENCOUNTER → 2023-11-29 | Outpatient (CLI) | payer MEDICARE ==
--- NOTE | 2023-11-29 19:55 | XR ---
EXAMINATION TYPE: XR chest 2V DATE OF EXAM: 11/29/2023 COMPARISON: 11/26/2023 INDICATION: Left apical pneumothorax TECHNIQUE: Frontal and lateral views of the chest are obtained. FINDINGS: The heart size is normal. The pulmonary vasculature is normal. There is increasing opacity over the left lung base. Correlate for atelectasis and pneumonia. Pleural effusion also appears to be present. There is an air-fluid level at the left hilar region. Previous left apical pneumothorax not clearly identified on the current examination. There are overla pping structures which may make evaluation for small pneumothorax more difficult.. IMPRESSION: 1. Air-fluid level left mid lung. 2. Increasing left lower lobe lung opacity. This could be related atelectasis, pneumonia, and/or pleu ral effusion. 3. Previous left apical pneumothorax not clearly identified on the current exam
== END | disposition home or self-care (01) ==
LOC: RADXRMAIN 14:31
PROVIDERS: ATTEND Nurse Practitioner Family
DX: Z48.813 Encounter for surgical aftercare following surgery on the respiratory system (principal); J94.8 Other specified pleural conditions; J93.9 Pneumothorax, unspecified
CPT/HCPCS: 71046

== ENCOUNTER → 2023-12-12 | Outpatient (CLI) | payer MEDICARE ==
--- NOTE | 2023-12-12 13:56 | MR ---
EXAMINATION TYPE: MR brain wo/w con DATE OF EXAM: 12/12/2023 COMPARISON: None HISTORY: Hx of Lung CA TECHNIQUE: Multiplanar, multisequence images of the brain and brainstem is performed without and with IV contras t, utilizing 8 mL intravenous Gadavist . FINDINGS: The schroeder-white junctions, ventricular system, basal cisterns appear unremarkable. Diffusion-weighted imaging shows no evidence of restricted diffusion to suggest acute/subacute infarct. Intracranial art erial flow voids are maintained. Midline structures show no abnormality. Patchy areas of high T2 sign al intensity are seen within the periventricular and subcortical white matter. Largest within the whi te matter of the right parietal lobe measures up to 8 mm (series 601, image 40). None of these lesion s demonstrate enhancement. No other abnormal enhancement identified. The susceptibility weighted imag es do not reveal any evidence for micro-hemorrhage. The bone marrow signal is within normal limits. The paranasal sinuses and globes are unremarkable. N ander septal deviation to the right. IMPRESSION: 1. No evidence of intracranial mass, acute/subacute infarct, or abnormal enhancement. 2. Nonspecific white matter changes, likely related to small vessel ischemic disease.
== END | disposition home or self-care (01) ==
LOC: RADMRIMAIN 06:05
PROVIDERS: ATTEND Thoracic Surgery (Cardiothoracic Vascular Surgery)
DX: G93.89 Other specified disorders of brain (principal); C34.12 Malignant neoplasm of upper lobe, left bronchus or lung
CPT/HCPCS: 70553; A9585

== ENCOUNTER → 2024-01-04 | Outpatient (CLI) | payer MEDICARE ==
[2024-01-04 11:01] LABS: African American GFR (CKD) >90 (>60 ml/min/1.73 sqM); Blood Urea Nitrogen 24 mg/dL (9-20); Non-African American GFR(CKD) 82 (>60 ml/min/1.73 sqM)
--- NOTE | 2024-01-04 14:20 | CT ---
EXAMINATION TYPE: CT chest w con CT DLP: 627 mGycm, Automated exposure control for dose reduction was used. DATE OF EXAM: 01/04/2024 11:37 AM COMPARISON: CT chest 11/19/2023, 10/18/2023 CLINICAL INDICATION:Male, 73 years old with history of C34.12 LUNG CA; PHH, Lung CA TECHNIQUE: Multiple axial images were obtained through the chest following the administration of 100 cc of Isovue 300. . Coronal and sagittal reformats reviewed. FINDINGS: LUNGS/ PLEURA: Postsurgical changes of the left upper lobe. Interval removal of left pleural catheter with small left hydropneumothorax redemonstrated. The gas component has decreased with increase in f luid component from prior CT. The anterior component demonstrates air-fluid level with the inferior p osterior component demonstrating only fluid. Improved left lung aeration from prior examination with linear scarring/atelectasis within the left lower lobe. Right basilar subsegmental atelectasis. Calc ified granuloma identified within the left lower lobe. Right upper lobe paraseptal emphysematous macias ges. No new suspicious pulmonary nodules or masses. AIRWAY: Patent and unremarkable.. HEART: Mildly enlarged. No pericardial effusion. MEDIASTINUM: Prominent soft tissue identified within the AP window measuring 2.6 x 3.1 cm (series 3, image 20). Mediastinal shift to the left due to left lung volume loss. VASCULATURE: No aortic aneurysm. MUSCULOSKELETAL: No acute osseous abnormalities. Healing left-sided fourth through eighth rib fractur es with callus formation identified. Fracture lines are still present. Mild multilevel degenerative c hanges of the visualized spine. SOFT TISSUES/LYMPH NODES: Bilateral gynecomastia. There is left lateral wall stranding changes at sit e of rib fractures. LOWER NECK: No significant findings. UPPER ABDOMEN: Small hiatal hernia. Right anterior renal exophytic 1.7 cm cyst. Punctate calcified gr anuloma within the inferior right hepatic lobe. IMPRESSION: 1. Postsurgical changes of the left upper lobe. Decrease size of now small left hydropneumothorax wit h interval removal of pleural catheter. 2. Prominent soft tissue identified within the AP window which may represent residual malignancy vers us postsurgical change. Consider further evaluation with PET/CT. No new pulmonary nodules or masses. 3. Healing left-sided fourth through eighth rib fractures. There is surrounding stranding changes wit hin the left lateral chest wall. Fracture lines are still present.
== END | disposition home or self-care (01) ==
LOC: RADCTMAIN 09:51
PROVIDERS: ATTEND Radiology Radiation Oncology
DX: C34.12 Malignant neoplasm of upper lobe, left bronchus or lung (principal); J94.8 Other specified pleural conditions; S22.42XD Multiple fractures of ribs, left side, subsequent encounter for fracture with routine healing
CPT/HCPCS: 82565; 84520; 71260; Q9967

== ENCOUNTER → 2024-04-24 | Outpatient (CLI) | payer MEDICARE ==
[2024-04-24 14:59] LABS: African American GFR (CKD) >90 (>60 ml/min/1.73 sqM); Blood Urea Nitrogen 24 mg/dL (9-20); Non-African American GFR(CKD) 80 (>60 ml/min/1.73 sqM)
--- NOTE | 2024-04-24 17:36 | CT ---
EXAMINATION TYPE: CT chest abdomen w con CT DLP: 893.1 mGycm, Automated exposure control for dose reduction was used. DATE OF EXAM: 04/24/2024 3:34 PM COMPARISON: CT chest 01/04/2024, 11/19/2023, 10/18/2023 CLINICAL INDICATION:Male, 73 years old with history of C34.12 LUNG CANCER; PHH, Lung CA. Technique: Multiple axial images of the chest and abdomen were obtained following the intravenous adm inistration of 100 mL Isovue-300. Oral contrast was administered. Two-dimensional coronal and sagitta l reconstructions were obtained. Findings: CHEST: LUNGS/ PLEURA: Postsurgical changes of the left upper lobe are demonstrated. No pneumothorax. Small l eft pleural effusion are demonstrated. Additional loculated effusion along the anterior left upper papi ng. Some linear scarring identified within the left lower lobe. Few scattered regions of reticular op acities within the left upper lung and along the left upper lung perihilar region. Dependent right ba silar subsegmental atelectasis. Left lung cancer granuloma. AIRWAY: Patent and unremarkable.. HEART: Mildly enlarged.No pericardial effusion. MEDIASTINUM: Decreased soft tissue within the AP window measuring 3.5 x 1.3 cm, previously 3.1 x 2.6 cm. Mediastinal shift to the left due to left lung volume loss. VASCULATURE: No aortic aneurysm. MUSCULOSKELETAL: No acute osseous abnormalities. Healed left-sided fourth through eighth rib fracture s with fracture lines no longer visualized. Mild multilevel degenerative changes of the visualized sp ine. SOFT TISSUES/LYMPH NODES: Bilateral gynecomastia. Left lateral chest soft tissue stranding likely fro m postsurgical intervention. LOWER NECK: No significant findings. ABDOMEN: ABDOMEN LIVER: Inferior hepatic lobe punctate calcified granuloma. GALLBLADDER AND BILE DUCTS: Unremarkable. PANCREAS: Unremarkable. SPLEEN: Unremarkable. ADRENAL GLANDS: Unremarkable. KIDNEYS AND URETERS: No evidence of hydronephrosis or renal calculus. The kidneys enhance symmetrica lly. Nonspecific bilateral perinephric fat stranding. Right renal exophytic 1.6 cm cyst. STOMACH AND BOWEL: Small hiatal hernia, duodenum is unremarkable. Enteric contrast reaches the distal small bowel. No focal bowel wall thickening or surrounding inflammatory changes. Few scattered colon ic diverticula. No evidence of bowel obstruction. PERITONEUM: No evidence of pneumoperitoneum or free fluid. VASCULATURE: Mild atherosclerotic calcifications are present throughout the abdominal aorta and its b ranches. No abdominal aortic aneurysm. MUSCULOSKELETAL: No acute osseous abnormalities. No aggressive osseous lesion. Degenerative changes o f bilateral SI joints with anterior bridging. Grade 1 anterolisthesis of L5 on S1 with bilateral pars defects. LYMPH NODES: No evidence for lymphadenopathy. SOFT TISSUE/ABDOMINAL WALL: Unremarkable IMPRESSION: 1. Post surgical changes of the left lung redemonstrated with small left pleural effusion and anteri or left lung loculated effusion demonstrated. Resolution of pneumothorax. There is some scattered res idual reticular opacities within the left lung which may represent atelectatic change. No new pulmona ry nodules or masses. 2. Mildly decreased soft tissue prominence within the AP window. May represent postsurgical change w ith residual malignancy not submitted. Attention on follow-up. 3. No evidence of metastatic disease within the abdomen. [facility], , 04/24/2024 5:33 PM
== END | disposition home or self-care (01) ==
LOC: RADCTMAIN 13:51
PROVIDERS: ATTEND Internal Medicine
DX: C34.12 Malignant neoplasm of upper lobe, left bronchus or lung (principal); N42.9 Disorder of prostate, unspecified; D64.9 Anemia, unspecified; M12.9 Arthropathy, unspecified; J90 Pleural effusion, not elsewhere classified
CPT/HCPCS: 82565; 84520; 71260; 74160; 36415; Q9967

== ENCOUNTER 2024-06-07 12:14 | Inpatient (IN) | payer MEDICARE ==
[2024-06-07 13:13] LABS: Anisocytosis Slight; Basophils % (A) 0 %; Eosinophils # (A) 0.3 k/uL (0-0.7); Eosinophils % (A) 3 %; HCT 28.9 % (39.0-53.0); HGB 9.3 gm/dL (13.0-17.5); Hypochromasia Moderate; Lymphocytes # (A) 0.2 k/uL (1.0-4.8); Lymphocytes % (A) 2 %; MCHC 32.3 g/dL (31.0-37.0); MCV 95.9 fL (80.0-100.0); Mean Platelet Volume 7.6; Monocytes # (A) 0.4 k/uL (0-1.0); Monocytes % (A) 4 %; Neutrophils # (A) 8.4 k/uL (1.3-7.7); Neutrophils % (A) 90 %; Platelet Count 275 k/uL (150-450); Poikilocytosis Slight; RBC 3.01 m/uL (4.30-5.90); RDW 16.4 % (11.5-15.5); WBC 9.3 k/uL (3.8-10.6)
[2024-06-07 13:24] LABS: ALT 26 U/L (4-49); African American GFR (CKD) >90 (>60 ml/min/1.73 sqM); Albumin 3.5 g/dL (3.5-5.0); Anion Gap 9 mmol/L; Blood Urea Nitrogen 18 mg/dL (9-20); Calcium 8.9 mg/dL (8.4-10.2); Carbon Dioxide 27 mmol/L (22-30); Chloride 97 mmol/L (98-107); Glucose 131 mg/dL (74-99); Non-African American GFR(CKD) 90 (>60 ml/min/1.73 sqM); Sodium 133 mmol/L (137-145); Total Bilirubin 1.3 mg/dL (0.2-1.3); Total Protein 6.9 g/dL (6.3-8.2)
[2024-06-07 13:26] LABS: AST 40 U/L (17-59); Alkaline Phosphatase 93 U/L (38-126); Potassium 4.5 mmol/L (3.5-5.1)
[2024-06-07 13:43] LABS: INR 1.2 (<1.2); Partial Thromboplastin Time 24.2 sec (22.0-30.0); Prothrombin Time 12.5 sec (10.0-12.5)
--- NOTE | 2024-06-07 14:16 | ED ---
SOB HPI - General Source: patient, family, RN notes reviewed Mode of arrival: wheelchair Limitations: no limitations - History of Present Illness MD Complaint: shortness of breath, cough Onset/Timin -: week(s) <Mayito Miller - Last Filed: 06/07/24 14:13> - General Source: patient, family, RN notes reviewed, old records reviewed Mode of arrival: wheelchair Limitations: no limitations - History of Present Illness MD Complaint: cough -: days(s), week(s) Severity: moderate Severity scale (1-10): 6 Quality: dull Consistency: constant Improves With: oxygen, rest Worsens With: exertion Context: anxiety, recent illness Associated Symptoms: chest pain, pain with inspiration Treatments Prior to Arrival: none <Alex Murphy - Last Filed: 06/08/24 23:30> - General Chief Complaint: Shortness of Breath Stated Complaint: NEISHA Time Seen by Provider: 06/07/24 12:29 - History of Present Illness Initial Comments: Quick note: This is a 74-year-old male with history of lung cancer presenting with shortness of breath and fatigue x 2 weeks. Endorses associated panting and cough with dry heaving for the past several days as well. Endorses BAE and lightheadedness along with decreased appetite. States pulse oximeter is in his low 70% at home was recently told his hemoglobin was 8. States he is already finished chemotherapy and radiation treatment. States he recently underwent a procedure in November where his heart was "poked" with 4 pints of blood was removed at that time. Denies fever, chills, hemoptysis, chest pain, abdominal pain, N/V/D. (Mayito Miller) This patient is a 74-year-old male history of lung cancer and lung surgery coming in for shortness of breath especially with exertion, low oxygen's at home down into the 70s with worsening symptoms over the last few days (Alex Murphy) - Related Data Home Medications Medication Instructions Recorded Confirmed ALPRAZolam [Xanax] 0.5 mg PO DAILY PRN 10/15/23 06/07/24 Albuterol Inhaler [Ventolin Hfa 1 puff INHALATION RT-Q6H PRN 10/15/23 06/07/24 Inhaler] Dutasteride 0.5 mg PO DAILY 05/06/24 12/28/24 Losartan/Hydrochlorothiazide 1 tab PO DAILY 10/15/23 06/07/24 [Losartan-Hctz 100-25 mg Tab] Metoprolol Succinate (ER) [Toprol 50 mg PO HS 10/15/23 06/07/24 XL] Sertraline [Zoloft] 50 mg PO HS 10/15/23 06/07/24 Tamsulosin [Flomax] 0.4 mg PO DAILY 10/15/23 06/07/24 traZODone HCL [Desyrel] 50 mg PO HS PRN 10/15/23 06/07/24 Cetirizine HCl [Zyrtec] 10 mg PO DAILY 06/07/24 06/07/24 OLANZapine [ZyPREXA] 2.5 mg PO DAILY PRN 06/07/24 06/07/24 amLODIPine [Norvasc] 10 mg PO DAILY 06/07/24 06/07/24 traMADol HCl [Ultram] 50 mg PO Q6H PRN 06/07/24 06/07/24 traZODone HCL [Desyrel] 50 mg PO HS 06/07/24 06/07/24 Allergies Allergy/AdvReac Type Severity Reaction Status Date / Time ragweed pollen Allergy Itching Verified 06/07/24 18:39 Review of Systems ROS Other: All systems not noted in ROS Statement are negative. <Mayito Miller - Last Filed: 06/07/24 14:13> ROS Other: All systems not noted in ROS Statement are negative. <Alex Murphy - Last Filed: 06/08/24 23:30> ROS Statement: Those systems with pertinent positive or pertinent negative responses have been documented in the HPI. Past Medical History Past Medical History: Chest Pain / Angina, Hypertension, Prostate Disorder, Sleep Apnea/CPAP/BIPAP Additional Past Medical History / Comment(s): uses cpap, recent difficutly breat snow with exertion, chest pain approx 20yrs ago, bells palsy,elevated prostate numbers, had bx was clear,. disolocated neck as child History of Any Multi-Drug Resistant Organisms: None Reported Past Surgical History: Appendectomy Additional Past Surgical History / Comment(s): kncule replacement. kidney stones with stent placement, anal sissure repair Additional Past Anesthesia/Blood Transfusion Reaction / Comment(s): "stopped breathing during anal fissure surgery" approx 20yrs Past Psychological History: Anxiety Smoking Status: Former smoker Past Alcohol Use History: None Reported - Past Family History Mother Family Medical History: Cancer Additional Family Medical History / Comment(s): breast <Mayito Miller - Last Filed: 06/07/24 14:13> General Exam Limitations: no limitations <Mayito Miller - Last Filed: 06/07/24 14:13> General appearance: alert, in no apparent distress, anxious Head exam: Present: atraumatic, normocephalic, normal inspection Eye exam: Present: normal appearance, PERRL, EOMI. Absent: scleral icterus, conjunctival injection, periorbital swelling ENT exam: Present: normal exam, mucous membranes moist Neck exam: Present: normal inspection. Absent: tenderness, meningismus, lymphadenopathy Respiratory exam: Present: respiratory distress, wheezes, decreased breath sound s, prolonged expiratory. Absent: rales, rhonchi, stridor Cardiovascular Exam: Present: normal rhythm, tachycardia, normal heart sounds. Absent: systolic murmur, diastolic murmur, rubs, gallop, clicks GI/Abdominal exam: Present: soft, normal bowel sounds. Absent: distended, tenderness, guarding, rebound, rigid Extremities exam: Present: normal inspection, full ROM, normal capillary refill. Absent: tenderness, pedal edema, joint swelling, calf tenderness Back exam: Present: normal inspection Neurological exam: Present: alert, oriented X3, CN II-XII intact Psychiatric exam: Present: normal affect, normal mood Skin exam: Present: warm, dry, intact, normal color. Absent: rash <Alex Murphy - Last Filed: 06/08/24 23:30> - General Exam Comments Initial Comments: Visual Physical Exam Vital signs reviewed General: Well-appearing, nontoxic. Patient appears pale and slightly fatigued. Head: Normocephalic, atraumatic Eyes: PERRLA, EOMI ENT: Airway patent Chest: Nonlabored breathing Skin: No visual rash, normal skin tone Neuro: Alert and oriented 3 Musculoskeletal: No gross abnormalities (Mayito Miller) Course <Alex Murphy - Last Filed: 12/29/24 23:30> Vital Signs 06/07/24 06/07/24 06/07/24 12:21 18:00 20:00 Temperature 99.2 F 98.8 F Pulse Rate 107 H 75 76 Pulse Rate [ Pulse Oximetery ] Respiratory 22 22 Rate Blood Pressure 102/58 126/66 Blood Pressure [Right Arm] O2 Sat by Pulse 90 L 88 L 95 Oximetry 06/07/24 06/07/24 22:37 23:41 Temperature 98.2 F Pulse Rate 78 Pulse Rate [ 84 Pulse Oximetery ] Respiratory 22 17 Rate Blood Pressure 118/78 Blood Pressure 113/67 [Right Arm] O2 Sat by Pulse 95 92 L Oximetry - Reevaluation(s) Reevaluation #1: 06/07/24 16:22 Medical records reviewed (Alex Murphy) Reevaluation #2: 06/07/24 16:22 Patient symptoms unchanged (Alex Murphy) Reevaluation #3: 06/07/24 16:22 Patient informed of results questions answered (Alex Murphy) Reevaluation #4: 06/08/24 16:22 Was pt. sent in by a medical professional or institution (, PA, CRACKING MACHINE OPERATOR, urgent care, hospital, or half-way...) When possible be specific @ -no Did you speak to anyone other than the patient for history (EMS, parent, family, police, friend...)? What history was obtained from this source @ -no Did you review nursing and triage notes (agree or disagree)? Why? @ -agree Are old charts reviewed (outside hosp., previous admission, EMS record, old EKG, old radiological studies, urgent care reports/EKG's, half-way records)? Report findings @ -yes Differential Diagnosis (chest pain, altered mental status, abdominal pain women, abdominal pain men, vaginal bleeding, weakness, fever, dyspnea, syncope, headache, dizziness, GI bleed, back pain, seizure, CVA, palpatations, mental health, musculoskeletal)? @ -prior EKG interpreted by me (3pts min.). @ -yes X-rays interpreted by me (1pt min.). @ -no CT interpreted by me (1pt min.). @ -no U/S interpreted by me (1pt. min.). @ -no What testing was considered but not performed or refused? (CT, X-rays, U/S, labs)? Why? @ -none What meds were considered but not given or refused? Why? @ -none Did you discuss the management of the patient with other professionals (professionals i.e. , PA, CRACKING MACHINE OPERATOR, lab, RT, psych nurse, clinical social worker, science faculty member, teacher, armed security officer, protective services case worker)? Give summary @ -no Was smoking cessation discussed for >3mins.? @ -no Was critical care preformed (if so, how long)? @ -yes31 Were there social determinants of health that impacted care today? How? (Homelessness, low income, unemployed, alcoholism, drug addiction, transportation, low edu. Level, literacy, decrease access to med. care, long term, rehab)? @ -none Was there de-escalation of care discussed even if they declined (Discuss DNR or withdrawal of care, Hospice)? DNR status @ -no What co-morbidities impacted this encounter? (DM, HTN, Smoking, COPD, CAD, Cancer, CVA, ARF, Chemo, Hep., AIDS, mental health diagnosis, sleep apnea, morbid obesity)? @ -none Was patient admitted / discharged? Hospital course, mention meds given and route, prescriptions, significant lab abnormalities, going to OR and other pertinent info. @ - 74 male to ER for evaluation of worsening exertional dyspnea. Patient with shortness of breath here in the ER known lung surgery with increasing pleural effusion dyspnea and will admit for further evaluation regarding hypoxia' Admitted Undiagnosed new problem with uncertain prognosis? @ -no Drug Therapy requiring intensive monitoring for toxicity (Heparin, Nitro, Insu rd, Cardizem)? @ -no Were any procedures done? @ -no Diagnosis/symptom? @ -Hypoxia Acute, or Chronic, or Acute on Chronic? @ -Acute Uncomplicated (without systemic symptoms) or Complicated (systemic symptoms)? @ -Complicated Side effects of treatment? @ -no Exacerbation, Progression, or Severe Exacerbation? @ -exacerbation Poses a threat to life or bodily function? How? (Chest pain, USA, SC, pneumonia, PE, COPD, DKA, ARF, appy, cholecystitis, CVA, Diverticulitis, Homicidal, Suicidal, threat to staff... and all critical care pts) @ -yes significant hypoxia (Alex Murphy) Reevaluation #5: Differential Dyspnea: Coronary syndrome, arrhythmia, tamponade, asthma, COPD, pulmonary embolism, pneumonia, pneumothorax, pulmonary effusion, anaphylaxis, diabetic ketoacidosis, flailed chest, pulmonary contusion, diaphragmatic rupture, anemia, neur omuscular, this is not meant to be an all-inclusive list. (Alex Murphy) - Consultations Consultation #1: Spoke with admitting physicians who agreed to admit this patient (Alex Murphy) Medical Decision Making - Lab Data Result diagrams: 06/07/24 13:07 06/07/24 13:07 <Mayito Miller - Last Filed: 06/07/24 14:13> - Lab Data Result diagrams: 06/08/24 05:11 06/08/24 05:11 - Radiology Data Radiology results: report reviewed (Chest x-ray is positive for worsening pleural effusion), image reviewed <Alex Murphy - Last Filed: 06/08/24 23:30> - Medical Decision Making I completed the quick note portion of this chart signed JACK Mercado (Mayito Miller) 74 male to ER for evaluation of worsening exertional dyspnea. Patient with shortness of breath here in the ER known lung surgery with increasing pleural effusion dyspnea and will admit for further evaluation regarding hypoxia (Alex Murphy) - Lab Data Lab Results 06/07/24 06/07/24 06/07/24 Range/Units 13:07 13:07 13:07 WBC 9.3 (3.8-10.6) k/uL RBC 3.01 L (4.30-5.90) m/uL Hgb 9.3 L (13.0-17.5) gm/dL Hct 28.9 L (39.0-53.0) % MCV 95.9 (80.0-100.0) fL MCH 31.0 (25.0-35.0) pg MCHC 32.3 (31.0-37.0) g/dL RDW 16.4 H (11.5-15.5) % Plt Count 275 (150-450) k/uL MPV 7.6 Neutrophils % 90 % Lymphocytes % 2 % Monocytes % 4 % Eosinophils % 3 % Basophils % 0 % Neutrophils # 8.4 H (1.3-7.7) k/uL Lymphocytes # 0.2 L (1.0-4.8) k/uL Monocytes # 0.4 (0-1.0) k/uL Eosinophils # 0.3 (0-0.7) k/uL Basophils # 0.0 (0-0.2) k/uL Hypochromasia Moderate Poikilocytosis Slight Anisocytosis Slight PT 12.5 (10.0-12.5) sec INR 1.2 H (<1.2) APTT 24.2 (22.0-30.0) sec Sodium 133 L (137-145) mmol/L Potassium 4.5 (3.5-5.1) mmol/L Chloride 97 L (98-107) mmol/L Carbon Dioxide 27 (22-30) mmol/L Anion Gap 9 mmol/L BUN 18 (9-20) mg/dL Creatinine 0.77 (0.66-1.25) mg/dL Est GFR (CKD-EPI)AfAm >90 (>60 ml/min/1.73 sqM) Est GFR (CKD-EPI)NonAf 90 (>60 ml/min/1.73 sqM) Glucose 131 H (74-99) mg/dL Plasma Lactic Acid Haroon (0.7-2.0) mmol/L Calcium 8.9 (8.4-10.2) mg/dL Total Bilirubin 1.3 (0.2-1.3) mg/dL AST 40 (17-59) U/L ALT 26 (4-49) U/L Alkaline Phosphatase 93 (38-126) U/L Troponin I (0.000-0.034) ng/mL Total Protein 6.9 (6.3-8.2) g/dL Albumin 3.5 (3.5-5.0) g/dL 06/07/24 06/07/24 Range/Units 13:07 13:07 WBC (3.8-10.6) k/uL RBC (4.30-5.90) m/uL Hgb (13.0-17.5) gm/dL Hct (39.0-53.0) % MCV (80.0-100.0) fL MCH (25.0-35.0) pg MCHC (31.0-37.0) g/dL RDW (11.5-15.5) % Plt Count (150-450) k/uL MPV Neutrophils % % Lymphocytes % % Monocytes % % Eosinophils % % Basophils % % Neutrophils # (1.3-7.7) k/uL Lymphocytes # (1.0-4.8) k/uL Monocytes # (0-1.0) k/uL Eosinophils # (0-0.7) k/uL Basophils # (0-0.2) k/uL Hypochromasia Poikilocytosis Anisocytosis PT (10.0-12.5) sec INR (<1.2) APTT (22.0-30.0) sec Sodium (137-145) mmol/L Potassium (3.5-5.1) mmol/L Chloride (98-107) mmol/L Carbon Dioxide (22-30) mmol/L Anion Gap mmol/L BUN (9-20) mg/dL Creatinine (0.66-1.25) mg/dL Est GFR (CKD-EPI)AfAm (>60 ml/min/1.73 sqM) Est GFR (CKD-EPI)NonAf (>60 ml/min/1.73 sqM) Glucose (74-99) mg/dL Plasma Lactic Acid Haroon 1.8 (0.7-2.0) mmol/L Calcium (8.4-10.2) mg/dL Total Bilirubin (0.2-1.3) mg/dL AST (17-59) U/L ALT (4-49) U/L Alkaline Phosphatase (38-126) U/L Troponin I <0.012 (0.000-0.034) ng/mL Total Protein (6.3-8.2) g/dL Albumin (3.5-5.0) g/dL Critical Care Time Critical Care Time: Yes Total Critical Care Time: 31 <Alex Murphy - Last Filed: 06/08/24 23:30> Disposition <Mayito Miller - Last Filed: 06/07/24 14:13> Is patient prescribed a controlled substance at d/c from ED?: No Time of Disposition: 16:20 <Alex Murphy - Last Filed: 06/08/24 23:30> Clinical Impression: Mass of upper lobe of left lung, Pleural effusion, Hypoxia Disposition: ADMITTED IP TO THIS HOSP Condition: Serious
--- NOTE | 2024-06-07 15:05 | XR ---
EXAMINATION TYPE: XR chest 2V DATE OF EXAM: 06/07/2024 2:29 PM COMPARISON: Chest radiographs from 11/29/2023. CLINICAL INDICATION: Male, 74 years old with history of difficulty breathing; [facility] TECHNIQUE: XR chest 2V Frontal and lateral views of the chest. FINDINGS: Lungs/Pleura: Multifocal airspace opacities with increased consolidation changes in the left upper papi ng compared to prior. No evidence of pneumothorax. Blunting of the left costophrenic angle. Pulmonary vascularity: Unremarkable. Heart/mediastinum: Cardiomediastinal silhouette is unremarkable. Musculoskeletal: No acute osseous pathology. IMPRESSION: 1. Worsening airspace opacity in the left upper lung with suspected small left pleural effusion. 2. Small left pleural effusion suggested. [facility], , 06/07/2024 3:02 PM
[2024-06-07] MEDS ORDERED: NALOXONE 0.4 MG/ML 1 ML VIAL IV PRN (16:20)
[2024-06-07] MEDS: HYDROmorphone 0.5 MG/0.5 ML SYRINGE IVP PRN (20:27)
[2024-06-07] MEDS: SODIUM CHLORIDE 0.9% 1,000 ML IV SCH (20:44)
--- NOTE | 2024-06-08 02:21 | P.HPIM ---
History of Present Illness H&P Date: 06/07/24 Patient is a 74-year-old male with a PMH of stage IV lung cancer status post chemotherapy and radiation (diagnosed earlier in 2023, following with Dr. Zamora, scheduled to start immunotherapy next month), hypertension, and BPH who presents to the emergency room with complaints of cough and shortness of breath. Patient notes that over the past days to weeks, he has noticed deteriorating exertional dyspnea. He reports now feeling winded with even minimal exertion. He also reports a nonproductive cough. Does also report that he was informed his hemoglobin was 8 and that it may be contributing to his symptoms. The patient's checked his SpO2 at home and found to be in the low 70s which prompted them to seek further care. The patient does not currently use any oxygen at home. He otherwise denied experiencing chest discomfort, fever, chills, nausea, vomiting, abdominal pain, diarrhea. In the emergency room a chest x-ray revealed worsening airspace opacity of the left upper lung with small left-sided pleural effusion. Laboratory evaluation revealed respiratory viral panel negative, hemoglobin 9.3 (similar to baseline), sodium 133, chloride 97, and lactic acid 1.8. ED documentation reviewed and case discussed with ED provider. Review of systems: Pertinent positives and negatives as discussed in HPI, a complete review of systems was performed and all other systems are negative. Physical examination: Vital signs reviewed General: non toxic, no distress, appears at stated age, overweight Derm: no unusual rashes/lesions, warm Head: atraumatic, normocephalic, symmetric Eyes: EOMI, no lid lag, anicteric sclera, pupils equal round reactive to light ENT: Nose and ears atraumatic Neck: No cervical lymphadenopathy, trachea midline, supple Mouth: no lip lesion, mucus membranes moist Cardiovascular: S1S2 reg, no murmur, positive dorsalis pedis pulse bilateral, no edema Lungs: Scattered bilateral coarse breath sounds without wheezing, no accessory muscle use Abdominal: soft, nontender to palpation, no guarding Ext: muscle strength 5 out of 5 in all 4 extremities grossly, no gross muscle atrophy, no contractures, Neuro: CN II-XI grossly intact, no gross focal neuro deficits Psych: Alert, oriented, appropriate affect Assessment: Acute hypoxic respiratory failure in setting of stage IV lung cancer with pleural effusion Hypochloremic hyponatremia Normocytic anemia, at baseline Chronic conditions: Hypertension, BPH Imaging: In the emergency room a chest x-ray revealed worsening airspace opacity of the left upper lung with small left-sided pleural effusion. Data Review: Laboratory evaluation revealed respiratory viral panel negative, hemoglobin 9.3 (similar to baseline), sodium 133, chloride 97, and lactic acid 1.8. Plan: Continue supplemental oxygen Pulmonary and oncology consulted Monitor BMP and CBC Resume home medications DVT prophylaxis: Lovenox subcu The patient is admitted with an anticipated greater than 2 midnight stay for evaluation of lung cancer CODE STATUS: Full Code Discussed with: Patient Anticipated discharge place: Home Past Medical History Past Medical History: Cancer, Chest Pain / Angina, Hypertension, Prostate Disorder, Sleep Apnea/CPAP/BIPAP Additional Past Medical History / Comment(s): uses cpap, recent difficutly breathing with exertion, chest pain approx 20yrs ago, bells palsy,elevated prostate numbers, had bx was clear,. 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 LUNG CA diagnosed November 2023. History of Any Multi-Drug Resistant Organisms: None Reported Past Surgical History: Appendectomy Additional Past Surgical History / Comment(s): kncule replacement. kidney stones with stent placement, anal fissure repair, left lobectomy November 2023. Past Anesthesia/Blood Transfusion Reactions: No Reported Reaction Additional Past Anesthesia/Blood Transfusion Reaction / Comment(s): "stopped breathing during anal fissure surgery" approx 20yrs Past Psychological History: Anxiety Smoking Status: Former smoker Past Alcohol Use History: None Reported Additional Past Alcohol Use History / Comment(s): 10-12 cigs per day approx last 40 yrs Past Drug Use History: Marijuana Additional Drug Use History / Comment(s): patient occasionally uses THC gummies to sleep. - Past Family History Mother Family Medical History: Cancer Additional Family Medical History / Comment(s): breast Medications and Allergies Home Medications Medication Instructions Recorded Confirmed Type ALPRAZolam [Xanax] 0.5 mg PO DAILY PRN 10/15/23 06/07/24 History Albuterol Inhaler [Ventolin Hfa 1 puff INHALATION RT-Q6H PRN 10/15/23 06/07/24 History Inhaler] Dutasteride 0.5 mg PO DAILY 10/15/23 06/07/24 History Losartan/Hydrochlorothiazide 1 tab PO DAILY 10/15/23 06/07/24 History [Losartan-Hctz 100-25 mg Tab] Metoprolol Succinate (ER) [Toprol 50 mg PO HS 10/15/23 06/07/24 History XL] Sertraline [Zoloft] 50 mg PO HS 10/15/23 06/07/24 History Tamsulosin [Flomax] 0.4 mg PO DAILY 10/15/23 06/07/24 History traZODone HCL [Desyrel] 50 mg PO HS PRN 10/15/23 06/07/24 History Cetirizine HCl [Zyrtec] 10 mg PO DAILY 06/07/24 06/07/24 History OLANZapine [ZyPREXA] 2.5 mg PO DAILY PRN 06/07/24 06/07/24 History amLODIPine [Norvasc] 10 mg PO DAILY 06/07/24 06/07/24 History traMADol HCl [Ultram] 50 mg PO Q6H PRN 06/07/24 06/07/24 History traZODone HCL [Desyrel] 50 mg PO HS 06/07/24 06/07/24 History Allergies Allergy/AdvReac Type Severity Reaction Status Date / Time ragweed pollen Allergy Itching Verified 06/07/24 18:39 Physical Exam Vitals: Vital Signs Temp Pulse Pulse Resp BP BP Pulse Ox 06/07/24 23:41 98.2 F 84 17 113/67 92 L 06/07/24 22:37 78 22 118/78 95 06/07/24 20:00 76 95 06/07/24 18:00 98.8 F 75 22 126/66 88 L 06/07/24 12:21 99.2 F 107 H 22 102/58 90 L Intake and Output 06/07/24 06/07/24 06/08/24 14:59 22:59 06:59 Other: Weight 92.533 kg 92.533 kg Results CBC & Chem 7: 06/07/24 13:07 06/07/24 13:07 Labs: Abnormal Lab Results - Last 24 Hours (Table) 06/07/24 06/07/24 06/07/24 Range/Units 13:07 13:07 13:07 RBC 3.01 L (4.30-5.90) m/uL Hgb 9.3 L (13.0-17.5) gm/dL Hct 28.9 L (39.0-53.0) % RDW 16.4 H (11.5-15.5) % Neutrophils # 8.4 H (1.3-7.7) k/uL Lymphocytes # 0.2 L (1.0-4.8) k/uL INR 1.2 H (<1.2) Sodium 133 L (137-145) mmol/L Chloride 97 L (98-107) mmol/L Glucose 131 H (74-99) mg/dL Thrombosis Risk Factor Assmnt - Choose All That Apply Other Risk Factors: Yes Each Risk Factor Represents 2 Points: Age 61-74 years Thrombosis Risk Factor Assessment Total Risk Factor Score: 2 Thrombosis Risk Factor Assessment Level: Low Risk
[2024-06-08] MEDS: ALPRAZolam 0.5 MG TAB PO PRN (05:52)
[2024-06-08] MEDS: ONDANSETRON 4 MG/2 ML VIAL IVP PRN (05:52)
[2024-06-08] MEDS: amLODIPine 10 MG TAB PO SCH (08:23)
[2024-06-08] MEDS: ENOXAPARIN 40 MG/0.4 ML SYRINGE SQ SCH (08:23)
[2024-06-08] MEDS: TAMSULOSIN 0.4 MG CAP.ER.24H PO SCH (08:23)
[2024-06-08] MEDS ORDERED: IPRATROPIUM-ALBUTEROL 3 ML NEB INHALATION PRN (08:40)
[2024-06-08] MEDS: LEVOFLOXACIN 500 MG TAB PO SCH (09:38)
[2024-06-08 09:52] LABS: Basophils # (A) 0.01 X 10*3/uL (0.00-0.10); Basophils % (A) 0.1 %; Eosinophils % (A) 6.3 %; HCT 25.1 % (39.6-50.0); Lymphocytes # (A) 0.33 X 10*3/uL (0.90-5.00); Lymphocytes % (A) 4.1 %; MCH 31.1 pg (27.0-32.0); MCHC 31.9 g/dL (32.0-37.0); MCV 97.7 FL (80.0-97.0); Monocytes % (A) 6.3 %; NRBC Per 100 WBC 0 X 10*3/uL (0.00-0.01); Neutrophils # (A) 6.45 X 10*3/uL (1.80-7.70); Neutrophils % (A) 80.7 %; Platelet Count 220 X 10*3/uL (140-440); RBC 2.57 X 10*6/uL (4.40-5.60); RDW 15.5 % (11.5-14.5); WBC 7.99 X 10*3/uL (4.50-10.00)
[2024-06-08 10:06] LABS: ALT 20 U/L (10-49); AST 27 U/L (14-35); Albumin/Globulin Ratio 0.97 Ratio (1.60-3.17); Alkaline Phosphatase 86 U/L (41-126); BUN/Creat Ratio 24.38 Ratio (12.00-20.00); Blood Urea Nitrogen 19.5 mg/dL (9.0-27.0); Calcium 8.4 mg/dL (8.7-10.3); Carbon Dioxide 25.3 mmol/L (21.6-31.8); Chloride 98 mmol/L (96-109); Globulin 3.1 g/dL (1.6-3.3); Glucose 121 mg/dL (70-110); Magnesium 2.2 mg/dL (1.5-2.4); Phosphorus 3.6 mg/dL (2.4-5.1); Potassium 3.9 mmol/L (3.5-5.5); Sodium 135 mmol/L (135-145); Total Bilirubin 0.7 mg/dL (0.3-1.2); Total Protein 6.1 g/dL (6.2-8.2)
--- NOTE | 2024-06-08 11:21 | P.PN ---
Subjective Progress Note Date: 06/08/24 No new complaints today. Ongoing chills, sweats per patient. Gen: In NAD, non-toxic HEENT: normocephalic, atraumatic, hearing acuity is intant, mucous membranes moist CVS: perfusing all extremities well, no pitting edema, Respiratory: symmetric chest expansion, no accessory muscle use, left-sided lung sounds are significantly diminished to absent GI: soft, NTTP, ND, : no suprapubic tenderness, no CVA tenderness MSK/Derm: no rashes, cyanosis Neuro: CN II-XII intact, no motor weakness, Psych: cooperative, euthymic mood, judgment and insight is intact Hospital course: Patient is a 74-year-old male with a PMH of stage IV lung cancer status post chemotherapy and radiation (diagnosed earlier in 2023, following with Dr. Zamora, scheduled to start immunotherapy next month), hypertension, and BPH who presented to the emergency room with complaints of cough and shortness of breath. In the emergency room a chest x-ray revealed worsening airspace opacity of the left upper lung with small left-sided pleural effusion. Laboratory evaluation revealed respiratory viral panel negative, hemoglobin 9.3 (similar to baseline), sodium 133, chloride 97, and lactic acid 1.8. Assessment: Acute hypoxic respiratory failure in setting of stage IV lung cancer with pleural effusion Hypochloremic hyponatremia Normocytic anemia, at baseline Chronic conditions: Hypertension, BPH Plan: Continue supplemental oxygen Pulmonary and oncology consulted Monitor BMP and CBC Resume home medications Initiate abx: levofloxacin 500mg daily Solumedrol 60mg IV q6h DVT prophylaxis: Lovenox subcu The patient is admitted with an anticipated greater than 2 midnight stay for evaluation of lung cancer CODE STATUS: Full Code Discussed with: Patient Anticipated discharge place: Home Objective - Vital Signs Vital signs: Vital Signs Temp 99.5 F 06/08/24 07:45 Pulse 99 06/08/24 07:45 Resp 17 06/08/24 07:45 BP 121/71 06/08/24 07:45 Pulse Ox 93 L 06/08/24 07:45 FiO2 Intake & Output 06/07/24 06/08/24 06/08/24 18:59 06:59 18:59 Intake Total 200 Output Total 200 Balance -200 200 Weight 92.533 kg 92.533 kg Intake: Oral 200 Output: Urine 200 Other: Voiding Method Toilet Bedside Commode - Labs CBC & Chem 7: 06/08/24 05:11 06/08/24 05:11 Labs: Abnormal Lab Results - Last 24 Hours (Table) 06/07/24 06/07/24 06/07/24 Range/Units 13:07 13:07 13:07 RBC 3.01 L (4.30-5.90) m/uL Hgb 9.3 L (13.0-17.5) gm/dL Hct 28.9 L (39.0-53.0) % MCV (80.0-97.0) FL MCHC (32.0-37.0) g/dL RDW 16.4 H (11.5-15.5) % Immature Gran # (0.00-0.04) X 10*3/uL Neutrophils # 8.4 H (1.3-7.7) k/uL Lymphocytes # 0.2 L (1.0-4.8) k/uL Eosinophils # (0.04-0.35) X 10*3/uL INR 1.2 H (<1.2) Sodium 133 L (137-145) mmol/L Chloride 97 L (98-107) mmol/L BUN/Creatinine Ratio (12.00-20.00) Ratio Glucose 131 H (74-99) mg/dL Calcium (8.7-10.3) mg/dL Total Protein (6.2-8.2) g/dL Albumin (3.8-4.9) g/dL Albumin/Globulin Ratio (1.60-3.17) Ratio 06/08/24 06/08/24 Range/Units 05:11 05:11 RBC 2.57 L (4.30-5.90) m/uL Hgb 8.0 L (13.0-17.5) gm/dL Hct 25.1 L (39.0-53.0) % MCV 97.7 H (80.0-97.0) FL MCHC 31.9 L (32.0-37.0) g/dL RDW 15.5 H (11.5-15.5) % Immature Gran # 0.20 H (0.00-0.04) X 10*3/uL Neutrophils # (1.3-7.7) k/uL Lymphocytes # 0.33 L (1.0-4.8) k/uL Eosinophils # 0.50 H (0.04-0.35) X 10*3/uL INR (<1.2) Sodium (137-145) mmol/L Chloride (98-107) mmol/L BUN/Creatinine Ratio 24.38 H (12.00-20.00) Ratio Glucose 121 H (74-99) mg/dL Calcium 8.4 L (8.7-10.3) mg/dL Total Protein 6.1 L (6.2-8.2) g/dL Albumin 3.0 L (3.8-4.9) g/dL Albumin/Globulin Ratio 0.97 L (1.60-3.17) Ratio
[2024-06-08] MEDS: IPRATROPIUM-ALBUTEROL 3 ML NEB INHALATION SCH (11:22)
--- NOTE | 2024-06-08 12:40 | P.CNPUL ---
History of Present Illness Consult date: 06/08/24 Requesting physician: Tom Mayen Reason for consult: dyspnea, abnormal CXR/CT Chief complaint: Diarrhea, weakness, shortness of breath History of present illness: This is a pleasant 74-year-old male patient with a known history of stage IIIa lung cancer secondary to non-small cell carcinoma. He is status post left upper lobectomy with mediastinal lymph node dissection back in November 2023. He had also developed vocal cord paralysis. He completed radiation to the left lung on 05/24/2024. Completed chemotherapy in 04/2024. He presented here to the emergency room yesterday with a 4-day history of diarrhea, progressive weakness and shortness of breath. Chest x-ray shows airspace opacity in the left upper lung with suspected small left pleural effusion. White count 7.9. Hemoglobin 8.0. Platelets 220. Sodium 135. Potassium 3.9. Bicarb 25. BUN 20. Creatinine 0.8. Glucose 121. Viral screen was negative. He is seen today in consultation on the regular medical floor. He is currently sitting up in bed. Awake and alert in no acute distress. His is at the bedside. He is maintaining good O2 saturations in the upper 90s on 2 L/min per nasal cannula. He is afebrile. Hemodynamically stable. Review of Systems REVIEW OF SYSTEMS: CONSTITUTIONAL: Denies any recent significant weight loss or weight gain. EYES: Denies change in vision. EARS, NOSE, MOUTH, THROAT: Denies headaches, denies sore throat. CARDIOVASCULAR: Denies chest pain, palpitations or syncopal episodes. RESPIRATORY: Positive for shortness of breath, cough, congestion no hemoptysis. GASTROINTESTINAL: Positive for poor appetite, diarrhea. GENITOURINARY: Denies hematuria, denies infections. MUSKULOSKELETAL: Denies pain, denies swelling. INTEGUMENTARY: Denies rash, denies eczema. NEUROLOGICAL: Denies recent memory loss, no recent seizure activity. PSYCHIATRIC: Denies anxiety, denies depression. HEMATOLOGIC/LYMPHATIC: Denies anemia, denies enlarged lymph nodes. Past Medical History Past Medical History: Cancer, Chest Pain / Angina, Hypertension, Prostate Disorder, Sleep Apnea/CPAP/BIPAP Additional Past Medical History / Comment(s): uses cpap, recent difficutly breathing with exertion, chest pain approx 20yrs ago, bells palsy,elevated prostate numbers, had bx was clear,. 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 LUNG CA diagnosed November 2023. History of Any Multi-Drug Resistant Organisms: None Reported Past Surgical History: Appendectomy Additional Past Surgical History / Comment(s): kncule replacement. kidney stones with stent placement, anal fissure repair, left lobectomy November 2023. Past Anesthesia/Blood Transfusion Reactions: No Reported Reaction Additional Past Anesthesia/Blood Transfusion Reaction / Comment(s): "stopped breathing during anal fissure surgery" approx 20yrs Past Psychological History: Anxiety Smoking Status: Former smoker Past Alcohol Use History: None Reported Additional Past Alcohol Use History / Comment(s): 10-12 cigs per day approx last 40 yrs Past Drug Use History: Marijuana Additional Drug Use History / Comment(s): patient occasionally uses THC gummies to sleep. - Past Family History Mother Family Medical History: Cancer Additional Family Medical History / Comment(s): breast Medications and Allergies Home Medications Medication Instructions Recorded Confirmed Type ALPRAZolam [Xanax] 0.5 mg PO DAILY PRN 10/15/23 06/07/24 History Albuterol Inhaler [Ventolin Hfa 1 puff INHALATION RT-Q6H PRN 10/15/23 06/07/24 History Inhaler] Dutasteride 0.5 mg PO DAILY 10/15/23 06/07/24 History Losartan/Hydrochlorothiazide 1 tab PO DAILY 10/15/23 06/07/24 History [Losartan-Hctz 100-25 mg Tab] Metoprolol Succinate (ER) [Toprol 50 mg PO HS 10/15/23 06/07/24 History XL] Sertraline [Zoloft] 50 mg PO HS 10/15/23 06/07/24 History Tamsulosin [Flomax] 0.4 mg PO DAILY 10/15/23 06/07/24 History traZODone HCL [Desyrel] 50 mg PO HS PRN 10/15/23 06/07/24 History Cetirizine HCl [Zyrtec] 10 mg PO DAILY 06/07/24 06/07/24 History OLANZapine [ZyPREXA] 2.5 mg PO DAILY PRN 06/07/24 06/07/24 History amLODIPine [Norvasc] 10 mg PO DAILY 06/07/24 06/07/24 History traMADol HCl [Ultram] 50 mg PO Q6H PRN 06/07/24 06/07/24 History traZODone HCL [Desyrel] 50 mg PO HS 06/07/24 06/07/24 History Allergies Allergy/AdvReac Type Severity Reaction Status Date / Time ragweed pollen Allergy Itching Verified 06/07/24 18:39 Physical Exam Vitals: Vital Signs Temp Pulse Pulse Resp BP BP Pulse Ox 06/08/24 11:37 84 06/08/24 11:22 86 98 06/08/24 07:45 99.5 F 99 17 121/71 93 L 06/07/24 23:41 98.2 F 84 17 113/67 92 L 06/07/24 22:37 78 22 118/78 95 06/07/24 20:00 76 95 06/07/24 18:00 98.8 F 75 22 126/66 88 L Intake and Output 06/07/24 06/08/24 06/08/24 22:59 06:59 14:59 Intake Total 200 Output Total 200 Balance -200 200 Intake: Oral 200 Output: Urine 200 Other: Voiding Method Toilet Bedside Commode Weight 92.533 kg GENERAL EXAM: Alert, pleasant 74-year-old male, on 2 L nasal cannula, fairly comfortable in no apparent distress. HEAD: Normocephalic. EYES: Normal reaction of pupils, equal size. NOSE: Clear with pink turbinates. THROAT: No erythema or exudates. NECK: No masses, no JVD. CHEST: No chest wall deformity. LUNGS: Equal air entry with few scattered rhonchi over the left lung. CVS: S1 and S2 normal with no audible murmur, regular rhythm. ABDOMEN: No hepatosplenomegaly, normal bowel sounds, no guarding or rigidity. SPINE: No scoliosis or deformity SKIN: No rashes CENTRAL NERVOUS SYSTEM: No focal deficits, tone is normal in all 4 extremities. EXTREMITIES: There is no peripheral edema. No clubbing, no cyanosis. Peripheral pulses are intact. Results - Laboratory Findings CBC and BMP: 06/08/24 05:11 06/08/24 05:11 PT/INR, D-dimer PT 12.5 sec (10.0-12.5) 06/07/24 13:07 INR 1.2 (<1.2) H 06/07/24 13:07 Abnormal lab findings: Abnormal Labs 06/07/24 06/07/24 06/07/24 13:07 13:07 13:07 RBC 3.01 L Hgb 9.3 L Hct 28.9 L MCV MCHC RDW 16.4 H Immature Gran # Neutrophils # 8.4 H Lymphocytes # 0.2 L Eosinophils # INR 1.2 H Sodium 133 L Chloride 97 L BUN/Creatinine Ratio Glucose 131 H Calcium Total Protein Albumin Albumin/Globulin Ratio 06/08/24 06/08/24 05:11 05:11 RBC 2.57 L Hgb 8.0 L Hct 25.1 L MCV 97.7 H MCHC 31.9 L RDW 15.5 H Immature Gran # 0.20 H Neutrophils # Lymphocytes # 0.33 L Eosinophils # 0.50 H INR Sodium Chloride BUN/Creatinine Ratio 24.38 H Glucose 121 H Calcium 8.4 L Total Protein 6.1 L Albumin 3.0 L Albumin/Globulin Ratio 0.97 L - Diagnostic Findings Chest x-ray: image reviewed Assessment and Plan Assessment: Acute hypoxemic respiratory failure secondary to possible pneumonitis post radiation, obstructing pneumonia or atelectasis. Viral screen negative. P rocalcitonin pending Diarrhea suspect secondary to chemotherapy or possible reaction to antibiotics in the outpatient setting Generalized weakness secondary to above History of vocal cord paralysis History of left upper lobectomy in November 2023 for non-small cell lung cancer. Completed chemotherapy in April 2024. Completed radiation May 24, 2024 Anemia, current hemoglobin 8.0 with recent blood transfusion in the outpatient setting Hypertension Obstructive sleep apnea on CPAP Former smoker History of anxiety Plan: The patient was seen and evaluated Chest x-ray, labs and medications reviewed Add Levaquin for now Check a procalcitonin Add DuoNeb and elations Add IV Solu-Medrol Follow-up chest x-ray in a.m. May require bronchoscopy if no significant improvement I have personally seen and examined the patient, performed the documentation and the assessment and plan as written. Number of minutes spent on the visit: 20 Dictation was produced using [employer] software. Please excuse any grammatical, word or spelling errors.
[2024-06-08] MEDS: methylPREDNISolone SOD SUCCI 125 MG/2 ML VIAL IV SCH (12:44)
[2024-06-08] MEDS: SERTRALINE 50 MG TAB PO SCH (20:31)
[2024-06-08] MEDS: METOPROLOL SUCCINATE (ER) 50 MG TAB.ER.24H PO SCH (20:31)
[2024-06-08] MEDS: traZODone HCL 50 MG TAB PO SCH (20:31)
--- NOTE | 2024-06-09 09:00 | XR ---
EXAMINATION TYPE: XR chest 1V portable DATE OF EXAM: 06/09/2024 6:39 AM COMPARISON: 06/07/2024 CLINICAL INDICATION: Male, 74 years old with history of Pneumonia, TECHNIQUE: XR chest 1V portable view(s) obtained. FINDINGS: The heart size is normal. The pulmonary vasculature is normal. There is a left upper lobe pneumonia. Infiltrate extends into the left lower lobe. Mild scattered inf iltrates developing on the right. IMPRESSION: 1. Worsening left lung pneumonia. [facility], , 06/09/2024 8:58 AM
[2024-06-09 09:05] LABS: Magnesium 2.6 mg/dL (1.5-2.4)
[2024-06-09 09:14] LABS: BUN/Creat Ratio 29.43 Ratio (12.00-20.00); Blood Urea Nitrogen 20.6 mg/dL (9.0-27.0); Calcium 9.1 mg/dL (8.7-10.3); Carbon Dioxide 26.3 mmol/L (21.6-31.8); Chloride 101 mmol/L (96-109); Glucose 167 mg/dL (70-110); Sodium 139 mmol/L (135-145)
[2024-06-09 09:21] LABS: Basophils # (A) 0.01 X 10*3/uL (0.00-0.10); Basophils % (A) 0.2 %; Eosinophils # (A) 0 X 10*3/uL (0.04-0.35); Eosinophils % (A) 0 %; HCT 26.3 % (39.6-50.0); HGB 8.3 g/dL (13.0-17.0); Lymphocytes # (A) 0.17 X 10*3/uL (0.90-5.00); Lymphocytes % (A) 3.5 %; MCH 30.4 pg (27.0-32.0); MCHC 31.6 g/dL (32.0-37.0); MCV 96.3 FL (80.0-97.0); Mean Platelet Volume 10.8 FL (9.5-12.2); Monocytes # (A) 0.12 X 10*3/uL (0.20-1.00); Monocytes % (A) 2.5 %; NRBC Per 100 WBC 0 X 10*3/uL (0.00-0.01); Neutrophils # (A) 4.36 X 10*3/uL (1.80-7.70); Neutrophils % (A) 89.1 %; Platelet Count 224 X 10*3/uL (140-440); RBC 2.73 X 10*6/uL (4.40-5.60); RDW 15.4 % (11.5-14.5); WBC 4.89 X 10*3/uL (4.50-10.00)
--- NOTE | 2024-06-09 09:38 | P.PN ---
Subjective Progress Note Date: 06/09/24 No new complaints today. Ongoing chills. PC is low. CXR today is personally interpreted to have worsening right sided opacities from day prior. Gen: In NAD, non-toxic HEENT: normocephalic, atraumatic, hearing acuity is intant, mucous membranes moist CVS: perfusing all extremities well, no pitting edema, Respiratory: symmetric chest expansion, no accessory muscle use, left-sided lung sounds are significantly diminished to absent GI: soft, NTTP, ND, : no suprapubic tenderness, no CVA tenderness MSK/Derm: no rashes, cyanosis Neuro: CN II-XII intact, no motor weakness, Psych: cooperative, euthymic mood, judgment and insight is intact Hospital course: Patient is a 74-year-old male with a PMH of stage IV lung cancer status post chemotherapy and radiation (diagnosed earlier in 2023, following with Dr. Zamora, scheduled to start immunotherapy next month), hypertension, and BPH who presented to the emergency room with complaints of cough and shortness of breath. In the emergency room a chest x-ray revealed worsening airspace opacity of the left upper lung with small left-sided pleural effusion. Laboratory evaluation revealed respiratory viral panel negative, hemoglobin 9.3 (similar to baseline), sodium 133, chloride 97, and lactic acid 1.8. Assessment: Acute hypoxic respiratory failure in setting of stage IV lung cancer with pleural effusion -Radiation Pneumonitis felt to be most likely Hypochloremic hyponatremia Normocytic anemia, at baseline Chronic conditions: Hypertension, BPH Plan: Continue supplemental oxygen Pulmonary and oncology consulted Monitor BMP and CBC Resume home medications Abx: levofloxacin 500mg daily, consider de-escalation, defer to pulmonology Solumedrol 60mg IV q6h DVT prophylaxis: Lovenox subcu The patient is admitted with an anticipated greater than 2 midnight stay for evaluation of lung cancer CODE STATUS: Full Code Discussed with: Patient Anticipated discharge place: Home Objective - Vital Signs Vital signs: Vital Signs Temp 97.6 F 06/09/24 07:02 Pulse 63 06/09/24 07:02 Resp 16 06/09/24 07:02 BP 124/75 06/09/24 07:02 Pulse Ox 96 06/09/24 07:02 FiO2 Intake & Output 06/08/24 06/09/24 06/09/24 18:59 06:59 18:59 Intake Total 1280 540 Output Total 325 Balance 1280 215 Intake: Oral 1280 540 Output: Urine 325 Other: Voiding Method Bedside Commode Urinal # Voids 3 # Bowel Movements 1 - Labs CBC & Chem 7: 06/09/24 04:49 06/09/24 04:49 Labs: Abnormal Lab Results - Last 24 Hours (Table) 06/08/24 06/08/24 06/09/24 Range/Units 05:11 05:11 04:49 RBC 2.57 L 2.73 L (4.40-5.60) X 10*6/uL Hgb 8.0 L 8.3 L (13.0-17.0) g/dL Hct 25.1 L 26.3 L (39.6-50.0) % MCV 97.7 H (80.0-97.0) FL MCHC 31.9 L 31.6 L (32.0-37.0) g/dL RDW 15.5 H 15.4 H (11.5-14.5) % Immature Gran # 0.20 H 0.23 H (0.00-0.04) X 10*3/uL Lymphocytes # 0.33 L 0.17 L (0.90-5.00) X 10*3/uL Monocytes # 0.12 L (0.20-1.00) X 10*3/uL Eosinophils # 0.50 H 0 L (0.04-0.35) X 10*3/uL BUN/Creatinine Ratio 24.38 H (12.00-20.00) Ratio Glucose 121 H (70-110) mg/dL Calcium 8.4 L (8.7-10.3) mg/dL Magnesium (1.5-2.4) mg/dL Total Protein 6.1 L (6.2-8.2) g/dL Albumin 3.0 L (3.8-4.9) g/dL Albumin/Globulin Ratio 0.97 L (1.60-3.17) Ratio 06/09/24 Range/Units 04:49 RBC (4.40-5.60) X 10*6/uL Hgb (13.0-17.0) g/dL Hct (39.6-50.0) % MCV (80.0-97.0) FL MCHC (32.0-37.0) g/dL RDW (11.5-14.5) % Immature Gran # (0.00-0.04) X 10*3/uL Lymphocytes # (0.90-5.00) X 10*3/uL Monocytes # (0.20-1.00) X 10*3/uL Eosinophils # (0.04-0.35) X 10*3/uL BUN/Creatinine Ratio 29.43 H (12.00-20.00) Ratio Glucose 167 H (70-110) mg/dL Calcium (8.7-10.3) mg/dL Magnesium 2.6 H (1.5-2.4) mg/dL Total Protein (6.2-8.2) g/dL Albumin (3.8-4.9) g/dL Albumin/Globulin Ratio (1.60-3.17) Ratio
[2024-06-09] MEDS ORDERED: RX INFO: IV CONTRAST WAS GIVEN 1 EACH MISC MISCELLANE PRN (13:05)
--- NOTE | 2024-06-09 14:09 | P.PN ---
Subjective Progress Note Date: 06/09/24 This is a pleasant 74-year-old male patient with a known history of stage IIIa lung cancer secondary to non-small cell carcinoma. He is status post left upper lobectomy with mediastinal lymph node dissection back in November 2023. He had also developed vocal cord paralysis. He completed radiation to the left lung on 05/24/2024. Completed chemotherapy in 04/2024. He presented here to the emergency room yesterday with a 4-day history of diarrhea, progressive weakness and shortness of breath. Chest x-ray shows airspace opacity in the left upper lung with suspected small left pleural effusion. White count 7.9. Hemoglobin 8.0. Platelets 220. Sodium 135. Potassium 3.9. Bicarb 25. BUN 20. Creat inine 0.8. Glucose 121. Viral screen was negative. He is seen today in consultation on the regular medical floor. He is currently sitting up in bed. Awake and alert in no acute distress. His is at the bedside. He is maintaining good O2 saturations in the upper 90s on 2 L/min per nasal cannula. He is afebrile. Hemodynamically stable. The patient is seen today June 09, 2024 in follow-up on the regular medical floor. He is currently sitting up at the bedside. Awake and alert in no acute distress. Breathing easier today compared to yesterday. He is maintaining O2 saturations in the 90s on 3 L/min per nasal cannula. No IV fluids. He remains on DuoNeb inhalations, Solu-Medrol. Lovenox for DVT prophylaxis. On Levaquin. White count 4.8. Hemoglobin 8.3. Platelets 224. Sodium 139. Potassium 5.0. Bicarb 26. BUN 21. Creatinine 0.7. Glucose 167. Procalcitonin 0.34. Chest x-ray reveals left upper lobe infiltrate extending to the left lower lobe. Scattered infiltrates developing on the right. Objective - Vital Signs Vital signs: Vital Signs Temp 97.7 F 06/09/24 12:56 Pulse 72 06/09/24 12:56 Resp 18 06/09/24 12:56 BP 124/71 06/09/24 12:56 Pulse Ox 100 06/09/24 12:56 FiO2 Intake & Output 06/08/24 06/09/24 06/09/24 18:59 06:59 18:59 Intake Total 1280 540 Output Total 325 Balance 1280 215 Intake: Oral 1280 540 Output: Urine 325 Other: Voiding Method Bedside Commode Bedside Commode Urinal Urinal # Voids 3 # Bowel Movements 1 - Exam GENERAL EXAM: Alert, 74-year-old male, on 2 L nasal cannula, comfortable in no apparent distress. HEAD: Normocephalic. EYES: Normal reaction of pupils, equal size. NOSE: Clear with pink turbinates. THROAT: No erythema or exudates. NECK: No masses, no JVD. CHEST: No chest wall deformity. LUNGS: Equal air entry with few scattered rhonchi over the left lung. CVS: S1 and S2 normal with no audible murmur, regular rhythm. ABDOMEN: No hepatosplenomegaly, normal bowel sounds, no guarding or rigidity. SPINE: No scoliosis or deformity SKIN: No rashes CENTRAL NERVOUS SYSTEM: No focal deficits, tone is normal in all 4 extremities. EXTREMITIES: There is no peripheral edema. No clubbing, no cyanosis. Peripheral pulses are intact. - Labs CBC & Chem 7: 06/09/24 04:49 06/09/24 04:49 Labs: Abnormal Lab Results - Last 24 Hours (Table) 06/09/24 06/09/24 Range/Units 04:49 04:49 RBC 2.73 L (4.40-5.60) X 10*6/uL Hgb 8.3 L (13.0-17.0) g/dL Hct 26.3 L (39.6-50.0) % MCHC 31.6 L (32.0-37.0) g/dL RDW 15.4 H (11.5-14.5) % Immature Gran # 0.23 H (0.00-0.04) X 10*3/uL Lymphocytes # 0.17 L (0.90-5.00) X 10*3/uL Monocytes # 0.12 L (0.20-1.00) X 10*3/uL Eosinophils # 0 L (0.04-0.35) X 10*3/uL BUN/Creatinine Ratio 29.43 H (12.00-20.00) Ratio Glucose 167 H (70-110) mg/dL Magnesium 2.6 H (1.5-2.4) mg/dL Assessment and Plan Assessment: Acute hypoxemic respiratory failure secondary to possible pneumonitis post radiation, obstructing pneumonia or atelectasis. Viral screen negative. Procalcitonin negative Diarrhea suspect secondary to chemotherapy or possible reaction to antibiotics in the outpatient setting Generalized weakness secondary to above History of vocal cord paralysis History of left upper lobectomy in November 2023 for non-small cell lung cancer. Completed chemotherapy in April 2024. Completed radiation May 24, 2024 Anemia, current hemoglobin 8.0 with recent blood transfusion in the outpatient setting Hypertension Obstructive sleep apnea on CPAP Former smoker History of anxiety Plan: The patient was seen and evaluated Chest x-ray, labs and medications reviewed Procalcitonin negative Discontinue Levaquin Continue DuoNeb and elations Continue IV Solu-Medrol Titrate down/off the oxygen as tolerated Medical oncology consult pending for further plan of care This patient was seen independently by the pulmonary nurse practitioner addressing pulmonary issues I have personally seen and examined the patient, performed the documentation and the assessment and plan as written. Number of minutes spent on the visit: 25 Dictation was produced using [employer] dictation software. Please excuse any grammatical, word or spelling errors.
[2024-06-09 15:04] VITALS: BMI 27.2
--- NOTE | 2024-06-09 17:46 | P.CONS ---
History of Present Illness - Reason for Consult Consult date: 06/09/24 hx lung cancer Requesting physician: Alex Murphy - Chief Complaint NEISHA - History of Present Illness Mr. Trevino is a 74-year-old gentleman with a past medical history significant for hypertension and COPD, and stage IIIA non-small cell lung cancer, who follows with Dr. Silke Zamora. He initially presented after noticing progressive shortness of breath in August 2023, he did see his primary care physician who ordered chest x-ray that was felt to be abnormal. He had a PET/CT at [facility] in late August to early September 2023 that noted left upper lobe lesion measuring 1.7 x 1.5 cm with an SUV of 23.5. There were additional scattered pulmonary nodules that did not have FDG uptake. He did have lymphadenopathy with reported lymph node measuring 2.5 cm and SUV of 19.7. Transbronchial biopsy attempted for the left upper lobe lesion on 10/18/2023 was nondiagnostic. He proceeded to have robotic left upper lobe wedge resection with mediastinal lymph node dissection on 11/14/2023. During the procedure, he had extensive blood loss up to 3 L with the procedure being converted to an open thoracotomy with left upper lobectomy. He received a total of 5 units of packed red blood cells, 1.2 L of albumin, and 3 L of crystalloid fluids. He is also noted to have pneumothorax postoperatively. He was in the intensive care unit during this time and required Levophed for hypovolemic shock. He was eventually discharged on 11/26/2023 with chest tubes being removed. Postoperative pathology noted 1.6 cm tumor in the left upper lobe being consistent with mixed invasive mucinous and nonmucinous adenocarcinoma that was grade 2-3. There was evidence of visceral pleural invasion, focal lymphovascular invasion, and positive vascular margin in the lobectomy specimen. 2 level 3 lymph nodes and one 5L lymph node or positive for adenocarcinoma. Pathologic staging was pT2aN2, consistent with stage IIIA. Circulating tumor DNA analysis noted ALK variant of unknown significance with no other targetable mutations. NGS from the tissue noted ERBB2 mutation ([id number]) with PD-L1 of 17% and tumor mutation burden of 24.03 mutations per megabase. He proceeded with cycle 1 of reduced dose carboplatin/Alimta on 01/28/2024 (carboplatin AUC 4, Alimta reduced by 20%) and completed cycle 4 on 03/31/2024. Adjuvant radiation therapy was completed on 04/23/2024. Staging CT chest/abdomen 04/24/2024 revealed no evidence of recurrent/metastatic disease with postsurgical changes in the left lung. Given he had no evidence of disease progression, we discussed proceeding with adjuvant durvalumab monthly for 1 year per the PACIFIC trial since there were no EGFR/ALK pathogenic mutations, they were agreeable to the same, but has yet to start. At his last f/u on 05/28, he had c/o 7 to 10 days of progressive dyspnea on exertion, weakness, and subjective chills with intermittent dry heaving, anorexia, and 10 pound weight loss. He was started on empiric course of moxifloxacin 400 mg daily for 7 days. He also received 1 unit PRBCs on 06/06, due to symptomatic anemia with hgb 8.0 Patient presented to emergency room with complaints of shortness of breath and hypoxia. Patient reports he is having progressive shortness of breath and his pulse ox at home was showing SpO2 in the 70s at which time he presented for further evaluation. Patient also reports he has been having a cough with minimal amount of clear sputum commonly, is worse in the morning. Denies hemoptysis. Denies fever and chills. On admit chest x-ray showed worsening airspace opacity in the left upper lung with suspected small pleural effusion. Patient was started on IV antibiotics and steroids. CBC showing WBC 4.8, hemoglobin 8.3, platelets 224,000. Patient is afebrile, SpO2 96% on 2L. Repeat CXR today showing worsening infiltrate in the left lung, with mild scattered infiltrates developing on the right. Procalcitonin 0.34. Pulmonology is following and has evaluated patient and has discontinued antibiotics, continues on IV solumedrol 60 mg every 6hrs. At today's visit patient is reporting improvement in breathing. Review of Systems 10 point ROS is negative except as stated in the HPI Past Medical History Past Medical History: Cancer, Chest Pain / Angina, Hypertension, Prostate Disorder, Sleep Apnea/CPAP/BIPAP Additional Past Medical History / Comment(s): uses cpap, recent difficutly br eathing with exertion, chest pain approx 20yrs ago, bells palsy,elevated prostate numbers, had bx was clear,. 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 LUNG CA diagnosed November 2023. History of Any Multi-Drug Resistant Organisms: None Reported Past Surgical History: Appendectomy Additional Past Surgical History / Comment(s): kncule replacement. kidney stones with stent placement, anal fissure repair, left lobectomy November 2023. Past Anesthesia/Blood Transfusion Reactions: No Reported Reaction Additional Past Anesthesia/Blood Transfusion Reaction / Comm: "stopped breathing during anal fissure surgery" approx 20yrs Past Psychological History: Anxiety Smoking Status: Former smoker Past Alcohol Use History: None Reported Additional Past Alcohol Use History / Comment(s): 10-12 cigs per day approx last 40 yrs Past Drug Use History: Marijuana Additional Drug Use History / Comment(s): patient occasionally uses THC gummies to sleep. - Past Family History Mother Family Medical History: Cancer Additional Family Medical History / Comment(s): breast Medications and Allergies Home Medications Medication Instructions Recorded Confirmed Type ALPRAZolam [Xanax] 0.5 mg PO DAILY PRN 10/15/23 06/07/24 History Albuterol Inhaler [Ventolin Hfa 1 puff INHALATION RT-Q6H PRN 10/15/23 06/07/24 History Inhaler] Dutasteride 0.5 mg PO DAILY 10/15/23 06/07/24 History Losartan/Hydrochlorothiazide 1 tab PO DAILY 10/15/23 06/07/24 History [Losartan-Hctz 100-25 mg Tab] Metoprolol Succinate (ER) [Toprol 50 mg PO HS 10/15/23 06/07/24 History XL] Sertraline [Zoloft] 50 mg PO HS 10/15/23 06/07/24 History Tamsulosin [Flomax] 0.4 mg PO DAILY 10/15/23 06/07/24 History traZODone HCL [Desyrel] 50 mg PO HS PRN 10/15/23 06/07/24 History Cetirizine HCl [Zyrtec] 10 mg PO DAILY 06/07/24 06/07/24 History OLANZapine [ZyPREXA] 2.5 mg PO DAILY PRN 06/07/24 06/07/24 History amLODIPine [Norvasc] 10 mg PO DAILY 06/07/24 06/07/24 History traMADol HCl [Ultram] 50 mg PO Q6H PRN 06/07/24 06/07/24 History traZODone HCL [Desyrel] 50 mg PO HS 06/07/24 06/07/24 History Allergies Allergy/AdvReac Type Severity Reaction Status Date / Time ragweed pollen Allergy Itching Verified 06/07/24 18:39 Physical Exam Vitals: Vital Signs Temp Pulse Pulse Resp BP Pulse Ox 06/09/24 12:56 97.7 F 72 18 124/71 100 06/09/24 12:16 64 06/09/24 12:04 64 06/09/24 07:02 97.6 F 63 16 124/75 96 06/09/24 02:53 94 L 06/09/24 01:26 97.4 F L 65 12 115/73 89 L 06/08/24 19:57 80 06/08/24 19:51 98.5 F 73 12 119/71 95 06/08/24 19:46 86 06/08/24 15:45 80 06/08/24 15:30 82 06/08/24 13:19 98 F 88 19 110/63 92 L Intake and Output 06/08/24 06/09/24 06/09/24 22:59 06:59 14:59 Intake Total 1080 540 Output Total 325 Balance 1080 215 Intake: Oral 1080 540 Output: Urine 325 Other: Voiding Method Bedside Commode Bedside Commode Urinal Urinal # Voids 3 # Bowel Movements 1 - Constitutional General appearance: average body habitus, no acute distress - EENT Eyes: anicteric sclerae, EOMI ENT: hearing grossly normal - Respiratory Respiratory: left: diminished - Cardiovascular Rhythm: regular leg Peripheral Edema: bilateral: None - Gastrointestinal General gastrointestinal: soft, no tenderness - Integumentary Integumentary: no cyanotic, pale - Musculoskeletal Musculoskeletal: generalized weakness - Psychiatric Psychiatric: A&O x's 3 Results CBC & Chem 7: 06/09/24 04:49 06/09/24 04:49 Labs: Abnormal Lab Results - Last 24 Hours (Table) 06/09/24 06/09/24 Range/Units 04:49 04:49 RBC 2.73 L (4.40-5.60) X 10*6/uL Hgb 8.3 L (13.0-17.0) g/dL Hct 26.3 L (39.6-50.0) % MCHC 31.6 L (32.0-37.0) g/dL RDW 15.4 H (11.5-14.5) % Immature Gran # 0.23 H (0.00-0.04) X 10*3/uL Lymphocytes # 0.17 L (0.90-5.00) X 10*3/uL Monocytes # 0.12 L (0.20-1.00) X 10*3/uL Eosinophils # 0 L (0.04-0.35) X 10*3/uL BUN/Creatinine Ratio 29.43 H (12.00-20.00) Ratio Glucose 167 H (70-110) mg/dL Magnesium 2.6 H (1.5-2.4) mg/dL Chest x-ray: report reviewed Assessment and Plan (1) Hypoxia Current Visit: Yes Status: Acute Priority: High Code(s): R09.02 - HYPOXEMIA SNOMED Code(s): 108537485 (2) Pleural effusion Current Visit: Yes Status: Acute Priority: Medium Code(s): J90 - PLEURAL EFFUSION, NOT ELSEWHERE CLASSIFIED SNOMED Code(s): 45610879 (3) Adenocarcinoma, lung Current Visit: No Status: Acute Priority: Medium Code(s): C34.90 - MALIGNANT NEOPLASM OF UNSP PART OF UNSP BRONCHUS OR LUNG SNOMED Code(s): 643383401 Plan: Acute hypoxemic respiratory failure: Patient presented to emergency room with complaints of shortness of breath, cough and hypoxia. Denies hemoptysis. Denies fever and chills. Of note at his last clinic f/u on 05/28, he had c/o 7 to 10 days of progressive dyspnea on exertion, weakness, and subjective chills with intermittent dry heaving, anorexia, and 10 pound weight loss. He was started on empiric course of moxifloxacin 400 mg daily for 7 days. He also received 1 unit PRBCs on 06/06, due to symptomatic anemia with hgb 8.0. Anemia felt to be chemo induced, no reported episodes of acute bleeding. -On admit chest x-ray showed worsening airspace opacity in the left upper lung with suspected small left pleural effusion. Patient was started on IV antibiotics and steroids. -Today, CBC showing WBC 4.8, hemoglobin 8.3, platelets 224,000. -Viral panel negative. Patient is afebrile, SpO2 96% on 2L. -Repeat CXR today showing worsening infiltrate in the left lung, with mild scattered infiltrates developing on the right. Procalcitonin 0.34 -Pulmonology is following and has evaluated patient and has discontinued antibiotics; continues on IV solumedrol 60 mg every 6hrs. Patient is reporting improvement in breathing. -Concern for acute hypoxemic failure secondary to possible post radiation pne umonitis vs pneumonia vs recurrence of disease, however the latter is less likely as CT scan on 04/24 showed no evidence of recurrent disease or metastatic disease. -Case discussed with radiation oncology. Will obtain CT chest to further evaluate NSCLC: -Oncology history as dictated in the HPI -S/p robotic left upper lobe wedge resection with mediastinal lymph node dissection on 11/14/2023. -Completed 4 cycles of Carboplatin/Alimta on 03/31/2024 and adjuvant radiation therapy was completed on 04/23/2024. Staging CT chest/abdomen 04/24/2024 revealed no evidence of recurrent/metastatic disease with postsurgical changes in the left lung. -Given he had no evidence of disease progression, recommended proceeding with adjuvant durvalumab monthly for 1 year per the PACIFIC trial. He has yet to start durvalumab maintenance treatment -Treatment will be on hold until acute condition is resolved -Clinic f/u with Dr. Pascual Zamora scheduled on 06/25
--- NOTE | 2024-06-09 17:47 | CT ---
EXAMINATION TYPE: CT chest w con DATE OF EXAM: 06/09/2024 4:57 PM COMPARISON: 04/24/2024 CLINICAL INDICATION: Male, 74 years old with history of SOB, r/o PNA vs pneumonitis, recurrent diseas e, SOB, r/o PNA vs pneumonitis hx lung cancer, s/p resection TECHNIQUE: Axial images were obtained at 5 mm thick sections. Reconstructed images are reviewed on [facility] computer in the coronal plane. Contrast used:100 mL of Isovue 300 with IV Contrast, (none if empty) Oral contrast used: (none if empty) CT DLP: 478.1 mGycm, Automated exposure control for dose reduction was used. FINDINGS: Portion of the thyroid visualized is normal. Diffuse groundglass opacities are through the right upper lobe. Increased lung markings are through t he left upper lobe. Consolidation is in the peripheral left apex. Findings are developing from the co mparison study. An infectious etiology is favored within the differential. Neoplasm however should be considered. There are calcifications in the posterior lateral right midlung. Postsurgical changes are in the ante rior right hilar region small loculated fluid is at the left base. This was present previously. No enlarged mediastinal or hilar adenopathy evident The ascending aorta diameter at the level of the main pulmonary artery is 3.6 cm. The main pulmonary artery diameter at the bifurcation is 2.[address] sections are obtained through the upper abdomen. Abdomen is essentially unremarkable. IMPRESSION: 1. Developing groundglass opacities and infiltrate with consolidation in the left upper lobe and righ t perihilar region [facility], , 06/09/2024 5:45 PM
[2024-06-10] MEDS: predniSONE 20 MG TAB PO SCH (10:18)
--- NOTE | 2024-06-10 14:13 | P.PN ---
Subjective Progress Note Date: 06/10/24 74-year-old male with a PMH of stage IV lung cancer status post chemotherapy and radiation (diagnosed earlier in 2023, following with Dr. Zamora, scheduled to start immunotherapy next month), hypertension, and BPH who presents to the emergency room with complaints of cough and shortness of breath. Patient notes that over the past days to weeks, he has noticed deteriorating exertional dyspnea. He reports now feeling winded with even minimal exertion. He also reports a nonproductive cough. Does also report that he was informed his hemoglobin was 8 and that it may be contributing to his symptoms. The patient's checked his SpO2 at home and found to be in the low 70s which prompted them to seek further care. The patient does not currently use any oxygen at home. In the emergency room a chest x-ray revealed worsening airspace opacity of the left upper lung with small left-sided pleural effusion. Laboratory evaluation revealed respiratory viral panel negative, hemoglobin 9.3 (similar to baseline), sodium 133, chloride 97, and lactic acid 1.8. Patient was started on bronchodilators, SoluMedrol and Levaquin and admitted for further workup and management. Pulmonary and Oncology following. Pro-kenneth 0.34, antibiotics discontinued. Concerns for pneumonitis post radiation, obstructing pneumonia or atelectasis. Chest CT showed ground glass opacities and infiltrate with consolidation in the THOMAS and right perihilar region. 06/10 Patient was seen and examined. States he is 40-60% better today in terms of his breathing. He is 93% on 3L NC. No new labs done today. General: non toxic, no distress, appears at stated age Derm: warm, dry Head: atraumatic, normocephalic, symmetric Eyes: EOMI, no lid lag, anicteric sclera Mouth: no lip lesion, mucus membranes moist Cardiovascular: S1S2 reg, no murmur Lungs: Decreased BS bilateral, no rhonchi, no rales , no accessory muscle use Ext: no gross muscle atrophy, no edema, no contractures Neuro: no focal neuro deficits Psych: Alert, oriented, appropriate affect Based on my assessment of this patient, this patient meets a high complexity level of care. Acute hypoxic respiratory failure secondary to pneumonitis post radiation, ob structing pneumonia or atelectasis in the setting of stage IV lung CA: Management as below. Pro-kenneth negative, Levaquin discontinued. Supplemental O2 to maintain O2 sat > 92%. Home O2 eval ordered. Will obtain nebulizer for home. COPD exacerbation: DuoNeb QID + Q2H PRN. Prednisone 60 mg PO QD. Pulmonary on board. Anemia of chronic disease: At baseline. Prerenal azotemia: Holding Losartan-HCTZ 100-25 mg PO QD. Hypertension: Amlodipine 10 mg PO QD. Metoprolol 50 mg PO QHS. Anxiety and Depression: Zoloft 50 mg PO QHS. Xanax 0.5 mg PO QD. BPH: Flomax 0.4 mg PO QD. Holding Dutasteride 0.5 mg PO QD. Seasonal allergies: Zyrtec 10 mg PO QD. CODE STATUS: FULL CODE. DVT Prophylaxis: Lovenox SQ GI Prophylaxis: Protonix PO Designated medical POA if patient is not able to make medical decisions for the mselves: . I have reviewed the following financial planning consultant notes: I have reviewed the results of the following tests: CT chest. I have ordered the following tests: I have discussed the care of this patient with the following independent historian: . Case management. I have independently interpreted the following test below: I have discussed the management of this patient with the following physician: Objective - Vital Signs Vital signs: Vital Signs Temp 97.2 F L 06/10/24 07:40 Pulse 72 06/10/24 11:37 Resp 16 06/10/24 07:40 BP 117/69 06/10/24 07:40 Pulse Ox 93 L 06/10/24 07:40 FiO2 Intake & Output 06/09/24 06/10/24 06/10/24 18:59 06:59 18:59 Intake Total 540 780 Output Total 600 Balance 540 180 Weight 86.183 kg Intake: Oral 540 780 Output: Urine 600 Other: Voiding Method Bedside Commode Bedside Commode Urinal Urinal # Voids 2 - Labs CBC & Chem 7: 06/09/24 04:49 06/09/24 04:49
--- NOTE | 2024-06-10 14:16 | P.PN ---
Subjective Progress Note Date: 06/10/24 This is a pleasant 74-year-old male patient with a known history of stage IIIa lung cancer secondary to non-small cell carcinoma. He is status post left upper lobectomy with mediastinal lymph node dissection back in November 2023. He had also developed vocal cord paralysis. He completed radiation to the left lung on 05/24/2024. Completed chemotherapy in 04/2024. He presented here to the emergency room yesterday with a 4-day history of diarrhea, progressive weakness and shortness of breath. Chest x-ray shows airspace opacity in the left upper lung with suspected small left pleural effusion. White count 7.9. Hemoglobin 8.0. Platelets 220. Sodium 135. Potassium 3.9. Bicarb 25. BUN 20. Creat inine 0.8. Glucose 121. Viral screen was negative. He is seen today in consultation on the regular medical floor. He is currently sitting up in bed. Awake and alert in no acute distress. His is at the bedside. He is maintaining good O2 saturations in the upper 90s on 2 L/min per nasal cannula. He is afebrile. Hemodynamically stable. The patient is seen today June 09, 2024 in follow-up on the regular medical floor. He is currently sitting up at the bedside. Awake and alert in no acute distress. Breathing easier today compared to yesterday. He is maintaining O2 saturations in the 90s on 3 L/min per nasal cannula. No IV fluids. He remains on DuoNeb inhalations, Solu-Medrol. Lovenox for DVT prophylaxis. On Levaquin. White count 4.8. Hemoglobin 8.3. Platelets 224. Sodium 139. Potassium 5.0. Bicarb 26. BUN 21. Creatinine 0.7. Glucose 167. Procalcitonin 0.34. Chest x-ray reveals left upper lobe infiltrate extending to the left lower lobe. Scattered infiltrates developing on the right. The patient is seen today June 10, 2024 in follow-up on the regular medical floor. He is awake and alert in no acute distress. Feeling back to his baseline. No worsening shortness of breath, cough or congestion. He is maintaining good O2 saturation in the 90s on 3 L/min per nasal cannula. His procalcitonin was negative. Antibiotics were discontinued yesterday. Suspect radiation pneumonitis. The patient has been on IV Solu-Medrol. Continued on bronchodilators. Lovenox for DVT prophylaxis. No new labs today. Objective - Vital Signs Vital signs: Vital Signs Temp 97.8 F 06/10/24 13:19 Pulse 78 06/10/24 13:19 Resp 18 06/10/24 13:19 BP 123/67 06/10/24 13:19 Pulse Ox 96 06/10/24 13:19 FiO2 Intake & Output 06/09/24 06/10/24 06/10/24 18:59 06:59 18:59 Intake Total 540 780 Output Total 600 Balance 540 180 Weight 86.183 kg Intake: Oral 540 780 Output: Urine 600 Other: Voiding Method Bedside Commode Bedside Commode Urinal Urinal # Voids 2 - Exam GENERAL EXAM: Alert, 74-year-old male, on 3 L nasal cannula, comfortable in no apparent distress. HEAD: Normocephalic. EYES: Normal reaction of pupils, equal size. NOSE: Clear with pink turbinates. THROAT: No erythema or exudates. NECK: No masses, no JVD. CHEST: No chest wall deformity. LUNGS: Equal air entry with few scattered rhonchi over the left lung. CVS: S1 and S2 normal with no audible murmur, regular rhythm. ABDOMEN: No hepatosplenomegaly, normal bowel sounds, no guarding or rigidity. SPINE: No scoliosis or deformity SKIN: No rashes CENTRAL NERVOUS SYSTEM: No focal deficits, tone is normal in all 4 extremities. EXTREMITIES: There is no peripheral edema. No clubbing, no cyanosis. Peripheral pulses are intact. - Labs CBC & Chem 7: 06/09/24 04:49 06/09/24 04:49 Assessment and Plan Assessment: Acute hypoxemic respiratory failure secondary to possible pneumonitis post radiation. Viral screen negative. Procalcitonin negative. CT scan of the chest revealed groundglass opacities and infiltrate with consolidation in the left upper lobe and right perihilar region Diarrhea suspect secondary to chemotherapy or possible reaction to antibiotics in the outpatient setting Generalized weakness secondary to above History of vocal cord paralysis History of left upper lobectomy in November 2023 for non-small cell lung cancer. Completed chemotherapy in April 2024. Completed radiation May 24, 2024 Anemia, current hemoglobin 8.3 with recent blood transfusion in the outpatient setting Hypertension Obstructive sleep apnea on CPAP Former smoker History of anxiety Plan: The patient was seen and evaluated CT scan of the chest, labs and medications reviewed Cleared for discharge from the pulmonary standpoint Evaluate for possible home oxygen Complete a prednisone taper Follow-up with Dr. Myers our office in 1 week This patient was seen independently by the pulmonary nurse practitioner a ddressing pulmonary issues I have personally seen and examined the patient, performed the documentation and the assessment and plan as written. Number of minutes spent on the visit: 24 Dictation was produced using [employer] dictation software. Please excuse any grammatical, word or spelling errors.
[2024-06-10] MEDS: traMADol 50 MG TAB PO PRN (20:07)
--- NOTE | 2024-06-10 20:33 | P.PN ---
Subjective Progress Note Date: 06/10/24 No acute events. Reporting continued improvement in breathing. SPO2 93% on 3L, afebrile. Transitioned to oral steroids today Objective - Vital Signs Vital signs: Vital Signs Temp 97.2 F L 06/10/24 07:40 Pulse 72 06/10/24 11:37 Resp 16 06/10/24 07:40 BP 117/69 06/10/24 07:40 Pulse Ox 93 L 06/10/24 07:40 FiO2 Intake & Output 06/09/24 06/10/24 06/10/24 18:59 06:59 18:59 Intake Total 540 780 Output Total 600 Balance 540 180 Weight 86.183 kg Intake: Oral 540 780 Output: Urine 600 Other: Voiding Method Bedside Commode Bedside Commode Urinal Urinal # Voids 2 - Constitutional General appearance: Present: average body habitus, no acute distress - EENT Eyes: Present: anicteric sclerae, EOMI ENT: Present: hearing grossly normal - Respiratory Respiratory: bilateral: CTA - Cardiovascular Rhythm: regular - Integumentary Integumentary: Absent: cyanotic - Psychiatric Psychiatric: Present: A&O x's 3 - Labs CBC & Chem 7: 06/09/24 04:49 06/09/24 04:49 - Imaging and Cardiology Chest x-ray: report reviewed CT scan - chest: report reviewed Assessment and Plan (1) Hypoxia Current Visit: Yes Status: Acute Priority: High Code(s): R09.02 - HYPOXEMI A SNOMED Code(s): 291641034 (2) Pleural effusion Current Visit: Yes Status: Acute Priority: Medium Code(s): J90 - PLEURAL EFFUSION, NOT ELSEWHERE CLASSIFIED SNOMED Code(s): 23906368 (3) Adenocarcinoma, lung Current Visit: No Status: Acute Priority: Medium Code(s): C34.90 - MALIGNANT NEOPLASM OF UNSP PART OF UNSP BRONCHUS OR LUNG SNOMED Code(s): 788142658 Plan: Acute hypoxemic respiratory failure: Patient presented to emergency room with complaints of shortness of breath, cough and hypoxia. Denies hemoptysis. Denies fever and chills. Of note at his last clinic f/u on 05/28, he had c/o 7 to 10 days of progressive dyspnea on exertion, weakness, and subjective chills with intermittent dry heaving, anorexia, and 10 pound weight loss. He was started on empiric course of moxifloxacin 400 mg daily for 7 days. He also received 1 unit PRBCs on 06/06, due to symptomatic anemia with hgb 8.0. Anemia felt to be chemo induced, no reported episodes of acute bleeding. -On admit chest x-ray showed worsening airspace opacity in the left upper lung with suspected small left pleural effusion. Patient was started on IV antibiotics and steroids. -CBC showing WBC 4.8, hemoglobin 8.3, platelets 224,000. -Viral panel negative. Patient is afebrile, SpO2 96% on 2L. -Repeat CXR showing worsening infiltrate in the left lung, with mild scattered infiltrates developing on the right. Procalcitonin 0.34 -Pulmonology is following and has evaluated patient and has discontinued antibiotics; continued on IV solumedrol 60 mg every 6hrs, transitioned to oral prednisone today. Patient is reporting continued improvement in breathing. -Concern for acute hypoxemic failure secondary to possible post radiation pneumonitis vs pneumonia vs recurrence of disease, however the latter is less likely as CT scan on 04/24 showed no evidence of recurrent disease or metastatic disease. -Case discussed with radiation oncology. CT chest was obtained to further evaluate. Scan showing developing groundglass opacities and infiltrate with consolidation in the left upper lobe and right perihilar region. Spoke with Dr. Lancaster, pt did not have no real radiation to right lung, so developing opacities and infiltrate noted in right perihilar region, may be related to new developing infectious process? However, pt was on 7 day course of moxifloxacin prior to admit with no improvement in symptoms, and since starting high dose steroids on admit pt has noted a significant improvement. -Patient has been started on prednisone 60mg daily and will plan for steroid taper upon discharge. Maintenance IO will be on hold until pt adequately treated/recovered NSCLC: -Oncology history as dictated in the HPI -S/p robotic left upper lobe wedge resection with mediastinal lymph node dissection on 11/14/2023. -Completed 4 cycles of Carboplatin/Alimta on 03/31/2024 and adjuvant radiation therapy was completed on 04/23/2024. Staging CT chest/abdomen 04/24/2024 r evealed no evidence of recurrent/metastatic disease with postsurgical changes in the left lung. -Given he had no evidence of disease progression, recommended proceeding with adjuvant durvalumab monthly for 1 year per the PACIFIC trial. He has yet to start durvalumab maintenance treatment -Treatment will be on hold until acute condition is resolved -Clinic f/u with Dr. Pascual Zamora scheduled on 06/25
[2024-06-11] MEDS: PANTOPRAZOLE 40 MG TABLET PO SCH (09:45)
[2024-06-11] MEDS: predniSONE 20 MG TAB PO SCH (09:45)
--- NOTE | 2024-06-11 10:01 | P.PN ---
Subjective Progress Note Date: 06/11/24 74-year-old male with a PMH of stage IV lung cancer status post chemotherapy and radiation (diagnosed earlier in 2023, following with Dr. Zamora, scheduled to start immunotherapy next month), hypertension, and BPH who presents to the emergency room with complaints of cough and shortness of breath. Patient notes that over the past days to weeks, he has noticed deteriorating exertional dyspnea. He reports now feeling winded with even minimal exertion. He also reports a nonproductive cough. Does also report that he was informed his hemoglobin was 8 and that it may be contributing to his symptoms. The patient's checked his SpO2 at home and found to be in the low 70s which prompted them to seek further care. The patient does not currently use any oxygen at home. In the emergency room a chest x-ray revealed worsening airspace opacity of the left upper lung with small left-sided pleural effusion. Laboratory evaluation revealed respiratory viral panel negative, hemoglobin 9.3 (similar to baseline), sodium 133, chloride 97, and lactic acid 1.8. Patient was started on bronchodilators, SoluMedrol and Levaquin and admitted for further workup and management. Pulmonary and Oncology following. Pro-kenneth 0.34, antibiotics discontinued. Concerns for pneumonitis post radiation, obstructing pneumonia or atelectasis. Chest CT showed ground glass opacities and infiltrate with consolidation in the THOMAS and right perihilar region. 06/10 Patient was seen and examined. States he is 40-60% better today in terms of his breathing. He is 93% on 3L NC. No new labs done today. 06/11 Patient was seen and examined. Reports shortness of breath with ambulation to the bathroom. Nebulizer and home O2 at bedside. Unfortunately, his pharmacy is closed due to New Years. Hopeful discharge tomorrow when he is able to get his prescriptions filled. General: non toxic, no distress, appears at stated age Derm: warm, dry Head: atraumatic, normocephalic, symmetric Eyes: EOMI, no lid lag, anicteric sclera Mouth: no lip lesion, mucus membranes moist Cardiovascular: S1S2 reg, no murmur Lungs: Scattered expiratory bilateral, no rhonchi, no rales , no accessory muscle use Ext: no gross muscle atrophy, no edema, no contractures Neuro: no focal neuro deficits Psych: Alert, oriented, appropriate affect Based on my assessment of this patient, this patient meets a high complexity level of care. Acute hypoxic respiratory failure secondary to pneumonitis post radiation, obstructing pneumonia or atelectasis in the setting of stage IV lung CA: Management as below. Pro-kenneth negative, Levaquin discontinued. Supplemental O2 to maintain O2 sat > 92%. COPD exacerbation: DuoNeb QID + Q2H PRN. Prednisone 60 mg PO QD. Pulmonary and Oncology on board. Anemia of chronic disease: At baseline. Prerenal azotemia: Holding Losartan-HCTZ 100-25 mg PO QD. Hypertension: Amlodipine 10 mg PO QD. Metoprolol 50 mg PO QHS. Anxiety and Depression: Zoloft 50 mg PO QHS. Xanax 0.5 mg PO QD. BPH: Flomax 0.4 mg PO QD. Holding Dutasteride 0.5 mg PO QD. Seasonal allergies: Zyrtec 10 mg PO QD. CODE STATUS: FULL CODE. DVT Prophylaxis: Lovenox SQ GI Prophylaxis: Protonix PO Designated medical POA if patient is not able to make medical decisions for themselves: . I have reviewed the following budget consultant notes: Pulmonary. I have reviewed the results of the following tests: I have ordered the following tests: I have discussed the care of this patient with the following independent historian: . I have independently interpreted the following test below: I have discussed the management of this patient with the following physician: Ariela Jarrell [employer]. Objective - Vital Signs Vital signs: Vital Signs Temp 97.7 F 06/11/24 07:43 Pulse 69 06/11/24 07:43 Resp 18 06/11/24 07:43 BP 134/72 06/11/24 07:43 Pulse Ox 93 L 06/11/24 07:43 FiO2 Intake & Output 06/10/24 06/11/24 06/11/24 18:59 06:59 18:59 Intake Total 2160 710 Output Total 1000 Balance 2160 -290 Intake: Oral 2160 710 Output: Urine 1000 Other: Voiding Method Bedside Commode Urinal # Voids 2 - Labs CBC & Chem 7: 06/09/24 04:49 06/09/24 04:49
--- NOTE | 2024-06-11 12:44 | P.PN ---
Subjective Progress Note Date: 06/11/24 This is a pleasant 74-year-old male patient with a known history of stage IIIa lung cancer secondary to non-small cell carcinoma. He is status post left upper lobectomy with mediastinal lymph node dissection back in November 2023. He had also developed vocal cord paralysis. He completed radiation to the left lung on 05/24/2024. Completed chemotherapy in 04/2024. He presented here to the emergency room yesterday with a 4-day history of diarrhea, progressive weakness and shortness of breath. Chest x-ray shows airspace opacity in the left upper lung with suspected small left pleural effusion. White count 7.9. Hemoglobin 8.0. Platelets 220. Sodium 135. Potassium 3.9. Bicarb 25. BUN 20. Creat inine 0.8. Glucose 121. Viral screen was negative. He is seen today in consultation on the regular medical floor. He is currently sitting up in bed. Awake and alert in no acute distress. His is at the bedside. He is maintaining good O2 saturations in the upper 90s on 2 L/min per nasal cannula. He is afebrile. Hemodynamically stable. The patient is seen today June 09, 2024 in follow-up on the regular medical floor. He is currently sitting up at the bedside. Awake and alert in no acute distress. Breathing easier today compared to yesterday. He is maintaining O2 saturations in the 90s on 3 L/min per nasal cannula. No IV fluids. He remains on DuoNeb inhalations, Solu-Medrol. Lovenox for DVT prophylaxis. On Levaquin. White count 4.8. Hemoglobin 8.3. Platelets 224. Sodium 139. Potassium 5.0. Bicarb 26. BUN 21. Creatinine 0.7. Glucose 167. Procalcitonin 0.34. Chest x-ray reveals left upper lobe infiltrate extending to the left lower lobe. Scattered infiltrates developing on the right. The patient is seen today June 10, 2024 in follow-up on the regular medical floor. He is awake and alert in no acute distress. Feeling back to his baseline. No worsening shortness of breath, cough or congestion. He is maintaining good O2 saturation in the 90s on 3 L/min per nasal cannula. His procalcitonin was negative. Antibiotics were discontinued yesterday. Suspect radiation pneumonitis. The patient has been on IV Solu-Medrol. Continued on bronchodilators. Lovenox for DVT prophylaxis. No new labs today. The patient is seen today June 11, 2024 in follow-up on the regular medical floor. He is doing better today compared to yesterday. Sitting up in bed. Awake and alert in no acute distress. Maintaining good O2 saturations in the 90s on 3 L/min per nasal cannula. He has been afebrile. Hemodynamically stable. He is continued on bronchodilators. Lovenox for DVT prophylaxis. Remains on prednisone. No new labs today. Objective - Vital Signs Vital signs: Vital Signs Temp 97.7 F 06/11/24 07:43 Pulse 78 06/11/24 12:32 Resp 18 06/11/24 07:43 BP 134/72 06/11/24 07:43 Pulse Ox 93 L 06/11/24 07:43 FiO2 Intake & Output 06/10/24 06/11/24 06/11/24 18:59 06:59 18:59 Intake Total 2160 710 Output Total 1000 Balance 2160 -290 Intake: Oral 2160 710 Output: Urine 1000 Other: Voiding Method Bedside Commode Urinal # Voids 2 - Exam GENERAL EXAM: Alert, 74-year-old male, sitting up in bed, on 3 L nasal cannula, in no apparent distress. HEAD: Normocephalic. EYES: Normal reaction of pupils, equal size. NOSE: Clear with pink turbinates. THROAT: No erythema or exudates. NECK: No masses, no JVD. CHEST: No chest wall deformity. LUNGS: Equal air entry with few scattered rhonchi over the left lung. CVS: S1 and S2 normal with no audible murmur, regular rhythm. ABDOMEN: No hepatosplenomegaly, normal bowel sounds, no guarding or rigidity. SPINE: No scoliosis or deformity SKIN: No rashes CENTRAL NERVOUS SYSTEM: No focal deficits, tone is normal in all 4 extremities. EXTREMITIES: There is no peripheral edema. No clubbing, no cyanosis. Peripheral pulses are intact. - Labs CBC & Chem 7: 06/09/24 04:49 06/09/24 04:49 Assessment and Plan Assessment: Acute hypoxemic respiratory failure secondary to possible pneumonitis post radiation. Viral screen negative. Procalcitonin negative. CT scan of the chest revealed groundglass opacities and infiltrate with consolidation in the left upper lobe and right perihilar region Diarrhea suspect secondary to chemotherapy or possible reaction to antibiotics in the outpatient setting Generalized weakness secondary to above History of vocal cord paralysis History of left upper lobectomy in November 2023 for non-small cell lung cancer. Completed chemotherapy in April 2024. Completed radiation May 24, 2024 Anemia, current hemoglobin 8.3 with recent blood transfusion in the outpatient setting Hypertension Obstructive sleep apnea on CPAP Former smoker History of anxiety Plan: The patient was seen and evaluated Medications reviewed Cleared for discharge once home medications are available Qualified for home oxygen Complete a prednisone taper Follow-up in our office in 1 week This patient was seen independently by the pulmonary nurse practitioner addressing pulmonary issues I have personally seen and examined the patient, performed the documentation and the assessment and plan as written. Number of minutes spent on the visit: 23 Dictation was produced using [employer] dictation software. Please excuse any grammatical, word or spelling errors.
--- NOTE | 2024-06-12 12:15 | P.DS ---
Providers Date of admission: 06/07/24 16:21 Expected date of discharge: 06/12/24 Attending physician: Artemio Cannon MD Consults: 06/07/24 16:20 Consult Physician Routine Consulting Provider: Silke Zamora Consult Reason/Comments: known Do you want consulting provider notified?: Yes Consult Physician Routine Consulting Provider: Misty Davidson Consult Reason/Comments: effusion Do you want consulting provider notified?: Yes Primary care physician: [facility] Course: 74-year-old male with a PMH of stage IV lung cancer status post chemotherapy and radiation (diagnosed earlier in 2023, following with Dr. Zamora, scheduled to start immunotherapy next month), hypertension, and BPH who presents to the emergency room with complaints of cough and shortness of breath. Patient notes that over the past days to weeks, he has noticed deteriorating exertional dyspnea. He reports now feeling winded with even minimal exertion. He also reports a nonproductive cough. Does also report that he was informed his hemoglobin was 8 and that it may be contributing to his symptoms. The patient's checked his SpO2 at home and found to be in the low 70s which prompted them to seek further care. The patient does not currently use any oxygen at home. In the emergency room a chest x-ray revealed worsening airspace opacity of the left upper lung with small left-sided pleural effusion. Laboratory evaluation revealed respiratory viral panel negative, hemoglobin 9.3 (similar to baseline), sodium 133, chloride 97, and lactic acid 1.8. Patient was started on bronchodilators, SoluMedrol and Levaquin and admitted for further workup and management. Pulmonary and Oncology following. Pro-kenneth 0.34, antibiotics discontinued. Concerns for pneumonitis post radiation. Chest CT showed ground glass opacities and infiltrate with consolidation in the THOMAS and right perihilar region. His breathing improved throughout his hospitalization. He failed his home O2 eval, home O2 and nebulizer was set up. 06/12 Patient was seen and examined. Reports shortness of breath with ambulation to the bathroom. Cleared by Pulmonary for discharge. Discharge Plan: Nebulizer and home O2 at bedside. Prescription sent for DuoNeb, Prednisone taper and Protonix. Follow up with PCP within 1-2 days of discharge. Follow up with Dr. Zamora and Dr. Myers on 06/25. General: non toxic, no distress, appears at stated age Derm: warm, dry Head: atraumatic, normocephalic, symmetric Eyes: EOMI, no lid lag, anicteric sclera Mouth: no lip lesion, mucus membranes moist Cardiovascular: S1S2 reg, no murmur Lungs: Scattered expiratory bilateral, no rhonchi, no rales , no accessory muscle use Ext: no gross muscle atrophy, no edema, no contractures Neuro: no focal neuro deficits Psych: Alert, oriented, appropriate affect Discharge Diagnosis: Acute hypoxic respiratory failure secondary to pneumonitis post radiation in the setting of stage IV lung CA Acute on chronic COPD exacerbation Anemia of chronic disease Prerenal azotemia Hypertension Anxiety and Depression BPH Seasonal allergies This complex discharge took 35 minutes to complete. Patient Condition at Discharge: Stable Plan - Discharge Summary Discharge Rx Participant: No New Discharge Prescriptions: New Ipratropium-Albuterol Nebulize [Duoneb 0.5 mg-3 mg/3 ml Soln] 3 ml INHALATION RT-QID PRN #120 each PRN Reason: Shortness Of Breath predniSONE See Taper PO DIRECTED #30 tab Pantoprazole [Protonix] 40 mg PO AC-BRKFST #30 tab Continue Sertraline [Zoloft] 50 mg PO HS traZODone HCL [Desyrel] 50 mg PO HS PRN PRN Reason: Insomnia Albuterol Inhaler [Ventolin Hfa Inhaler] 1 puff INHALATION RT-Q6H PRN PRN Reason: Wheezing traMADol HCl [Ultram] 50 mg PO Q6H PRN PRN Reason: Pain amLODIPine [Norvasc] 10 mg PO DAILY Tamsulosin [Flomax] 0.4 mg PO DAILY Metoprolol Succinate (ER) [Toprol XL] 50 mg PO HS Losartan/Hydrochlorothiazide [Losartan-Hctz 100-25 mg Tab] 1 tab PO DAILY Dutasteride 0.5 mg PO DAILY ALPRAZolam [Xanax] 0.5 mg PO DAILY PRN PRN Reason: Anxiety OLANZapine [ZyPREXA] 2.5 mg PO DAILY PRN PRN Reason: Nausea Cetirizine HCl [Zyrtec] 10 mg PO DAILY traZODone HCL [Desyrel] 50 mg PO HS Discharge Medication List ALPRAZolam [Xanax] 0.5 mg PO DAILY PRN 10/15/23 [History] Albuterol Inhaler [Ventolin Hfa Inhaler] 1 puff INHALATION RT-Q6H PRN 10/15/23 [History] Dutasteride 0.5 mg PO DAILY 10/15/23 [History] Losartan/Hydrochlorothiazide [Losartan-Hctz 100-25 mg Tab] 1 tab PO DAILY 10/15/23 [History] Metoprolol Succinate (ER) [Toprol XL] 50 mg PO HS 10/15/23 [History] Sertraline [Zoloft] 50 mg PO HS 10/15/23 [History] Tamsulosin [Flomax] 0.4 mg PO DAILY 10/15/23 [History] traZODone HCL [Desyrel] 50 mg PO HS PRN 10/15/23 [History] Cetirizine HCl [Zyrtec] 10 mg PO DAILY 06/07/24 [History] OLANZapine [ZyPREXA] 2.5 mg PO DAILY PRN 06/07/24 [History] amLODIPine [Norvasc] 10 mg PO DAILY 06/07/24 [History] traMADol HCl [Ultram] 50 mg PO Q6H PRN 06/07/24 [History] traZODone HCL [Desyrel] 50 mg PO HS 06/07/24 [History] Ipratropium-Albuterol Nebulize [Duoneb 0.5 mg-3 mg/3 ml Soln] 3 ml INHALATION RT-QID PRN #120 each 06/12/24 [Rx] Pantoprazole [Protonix] 40 mg PO AC-BRKFST #30 tab 06/12/24 [Rx] predniSONE See Taper PO DIRECTED #30 tab 06/12/24 [Rx] Follow up Appointment(s)/Referral(s): Silke Zamora MD [STAFF PHYSICIAN] - 06/25/24 8:45 am ([place] office ) Braydon Villarreal MD [Primary Care Provider] - 1-2 days (The office is closed please call and make follow up appointment.) Christopher Myers MD [STAFF PHYSICIAN] - 06/25/24 9:00 am (You will be seen at the [facility] [address] [place] [address].) Discharge Disposition: HOME SELF-CARE
--- NOTE | 2024-06-12 12:59 | P.PN ---
Subjective Progress Note Date: 06/12/24 This is a pleasant 74-year-old male patient with a known history of stage IIIa lung cancer secondary to non-small cell carcinoma. He is status post left upper lobectomy with mediastinal lymph node dissection back in November 2023. He had also developed vocal cord paralysis. He completed radiation to the left lung on 05/24/2024. Completed chemotherapy in 04/2024. He presented here to the emergency room yesterday with a 4-day history of diarrhea, progressive weakness and shortness of breath. Chest x-ray shows airspace opacity in the left upper lung with suspected small left pleural effusion. White count 7.9. Hemoglobin 8.0. Platelets 220. Sodium 135. Potassium 3.9. Bicarb 25. BUN 20. Creat inine 0.8. Glucose 121. Viral screen was negative. He is seen today in consultation on the regular medical floor. He is currently sitting up in bed. Awake and alert in no acute distress. His is at the bedside. He is maintaining good O2 saturations in the upper 90s on 2 L/min per nasal cannula. He is afebrile. Hemodynamically stable. The patient is seen today June 09, 2024 in follow-up on the regular medical floor. He is currently sitting up at the bedside. Awake and alert in no acute distress. Breathing easier today compared to yesterday. He is maintaining O2 saturations in the 90s on 3 L/min per nasal cannula. No IV fluids. He remains on DuoNeb inhalations, Solu-Medrol. Lovenox for DVT prophylaxis. On Levaquin. White count 4.8. Hemoglobin 8.3. Platelets 224. Sodium 139. Potassium 5.0. Bicarb 26. BUN 21. Creatinine 0.7. Glucose 167. Procalcitonin 0.34. Chest x-ray reveals left upper lobe infiltrate extending to the left lower lobe. Scattered infiltrates developing on the right. The patient is seen today June 10, 2024 in follow-up on the regular medical floor. He is awake and alert in no acute distress. Feeling back to his baseline. No worsening shortness of breath, cough or congestion. He is maintaining good O2 saturation in the 90s on 3 L/min per nasal cannula. His procalcitonin was negative. Antibiotics were discontinued yesterday. Suspect radiation pneumonitis. The patient has been on IV Solu-Medrol. Continued on bronchodilators. Lovenox for DVT prophylaxis. No new labs today. The patient is seen today June 11, 2024 in follow-up on the regular medical floor. He is doing better today compared to yesterday. Sitting up in bed. Awake and alert in no acute distress. Maintaining good O2 saturations in the 90s on 3 L/min per nasal cannula. He has been afebrile. Hemodynamically stable. He is continued on bronchodilators. Lovenox for DVT prophylaxis. Remains on prednisone. No new labs today. The patient is seen today June 12, 2024 in follow-up on the [facility] medical floor. He is awake and alert in no acute distress. Feeling nearly back to his baseline. He is maintaining good O2 saturations in the 90s on 3 L/min per nasal cannula. He is afebrile. Hemodynamically stable. He remains on DuoNeb and elations. Lovenox for DVT prophylaxis. Continued on prednisone. Procalcitonin had been negative at 0.34. Objective - Vital Signs Vital signs: Vital Signs Temp 98.2 F 06/12/24 07:30 Pulse 77 06/12/24 07:30 Resp 16 06/12/24 07:30 BP 135/73 06/12/24 07:30 Pulse Ox 91 L 06/12/24 10:46 FiO2 Intake & Output 06/11/24 06/12/24 06/12/24 18:59 06:59 18:59 Intake Total 480 240 Output Total 500 Balance 480 -260 Intake: Oral 480 240 Output: Urine 500 Other: Voiding Method Bedside Commode Urinal # Voids 3 3 # Bowel Movements 2 - Exam GENERAL EXAM: Alert, pleasant 74-year-old male, sitting up in bed, on 3 L nasal cannula, in no apparent distress. HEAD: Normocephalic. EYES: Normal reaction of pupils, equal size. NOSE: Clear with pink turbinates. THROAT: No erythema or exudates. NECK: No masses, no JVD. CHEST: No chest wall deformity. LUNGS: Equal air entry with few scattered rhonchi over the left lung. CVS: S1 and S2 normal with no audible murmur, regular rhythm. ABDOMEN: No hepatosplenomegaly, normal bowel sounds, no guarding or rigidity. SPINE: No scoliosis or deformity SKIN: No rashes CENTRAL NERVOUS SYSTEM: No focal deficits, tone is normal in all 4 extremities. EXTREMITIES: There is no peripheral edema. No clubbing, no cyanosis. Peripheral pulses are intact. - Labs CBC & Chem 7: 06/09/24 04:49 06/09/24 04:49 Assessment and Plan Assessment: Acute hypoxemic respiratory failure secondary to possible pneumonitis post radiation. Viral screen negative. Procalcitonin negative. CT scan of the chest revealed groundglass opacities and infiltrate with consolidation in the left upper lobe and right perihilar region Diarrhea suspect secondary to chemotherapy or possible reaction to antibiotics in the outpatient setting Generalized weakness secondary to above History of vocal cord paralysis History of left upper lobectomy in November 2023 for non-small cell lung cancer. Completed chemotherapy in April 2024. Completed radiation May 24, 2024 Anemia, current hemoglobin 8.3 with recent blood transfusion in the outpatient setting Hypertension Obstructive sleep apnea on CPAP Former smoker History of anxiety Plan: The patient was seen and evaluated Medications reviewed Cleared for discharge Set up for home oxygen Prednisone dose per oncology Follow-up in our office in 1 week This patient was seen independently by the pulmonary nurse practitioner addressing pulmonary issues I have personally seen and examined the patient, performed the documentation and the assessment and plan as written. Number of minutes spent on the visit: 24 Dictation was produced using [employer] dictation software. Please excuse any grammatical, word or spelling errors.
[2024-06-12 13:02] VITALS: BP 130/74; RESP 19; TEMP 98.6
[2024-06-12 16:09] VITALS: PULSE 84
--- NOTE | 2024-06-12 19:08 | P.PN ---
Subjective Progress Note Date: 06/12/24 No acute events. Reporting improvement in breathing but does experience increased SOB on exertion, which causes him to become anxious/panic which exacerbates symptoms. SPO2 92% on 3L, afebrile. Continues on oral steroids. Plan for discharge today Objective - Vital Signs Vital signs: Vital Signs Temp 98.2 F 06/12/24 07:30 Pulse 77 06/12/24 07:30 Resp 16 06/12/24 07:30 BP 135/73 06/12/24 07:30 Pulse Ox 91 L 06/12/24 10:46 FiO2 Intake & Output 06/11/24 06/12/24 06/12/24 18:59 06:59 18:59 Intake Total 480 240 Output Total 500 Balance 480 -260 Intake: Oral 480 240 Output: Urine 500 Other: Voiding Method Bedside Commode Urinal # Voids 3 3 # Bowel Movements 2 - Constitutional General appearance: Present: average body habitus, no acute distress - EENT Eyes: Present: anicteric sclerae, EOMI ENT: Present: hearing grossly normal - Respiratory Details: breathing is even and unlabored - Cardiovascular Details: well perfused - Gastrointestinal General gastrointestinal: Present: soft. Absent: tenderness - Integumentary Integumentary: Absent: cyanotic - Psychiatric Psychiatric: Present: A&O x's 3 - Labs CBC & Chem 7: 06/09/24 04:49 06/09/24 04:49 Assessment and Plan (1) Hypoxia Status: Acute Priority: High Code(s): R09.02 - HYPOXEMIA SNOMED Code(s): 283426386 (2) Pleural effusion Status: Acute Priority: Medium Code(s): J90 - PLEURAL EFFUSION, NOT ELS EWHERE CLASSIFIED SNOMED Code(s): 69471412 (3) Adenocarcinoma, lung Status: Acute Priority: Medium Code(s): C34.90 - MALIGNANT NEOPLASM OF UNSP PART OF UNSP BRONCHUS OR LUNG SNOMED Code(s): 460310583 Plan: Acute hypoxemic respiratory failure: Patient presented to emergency room with complaints of shortness of breath, cough and hypoxia. Denies hemoptysis. Denies fever and chills. Of note at his last clinic f/u on 05/28, he had c/o 7 to 10 days of progressive dyspnea on exertion, weakness, and subjective chills with intermittent dry heaving, anorexia, and 10 pound weight loss. He was started on empiric course of moxifloxacin 400 mg daily for 7 days. He also received 1 unit PRBCs on 06/06, due to symptomatic anemia with hgb 8.0. Anemia felt to be chemo induced, no reported episodes of acute bleeding. -On admit chest x-ray showed worsening airspace opacity in the left upper lung with suspected small left pleural effusion. Patient was started on IV antibiotics and steroids. -CBC showing WBC 4.8, hemoglobin 8.3, platelets 224,000. -Viral panel negative. Patient is afebrile, SpO2 96% on 2L. -Repeat CXR showing worsening infiltrate in the left lung, with mild scattered infiltrates developing on the right. Procalcitonin normal at 0.34 -Pulmonology is following and has evaluated patient and has discontinued antibiotics; continued on IV solumedrol 60 mg every 6hrs, and has been transitioned to oral prednisone for suspected pneumonitis r/t radiation. Patient is reporting improvement in breathing since admit -Concern for acute hypoxemic failure secondary to possible post radiation pneumonitis vs pneumonia vs recurrence of disease, however the latter is less likely as CT scan on 04/24 showed no evidence of recurrent disease or metastatic disease. -Case discussed with radiation oncology. CT chest was obtained to further evaluate. Scan showing developing groundglass opacities and infiltrate with consolidation in the left upper lobe and right perihilar region. Further discussed case with Dr. Lancaster, pt did not have any real radiation to right lung, so developing opacities and infiltrate noted in right perihilar region, may be related to new developing infectious process vs other etiologies? However, pt was on 7 day course of moxifloxacin prior to admit with no improvement in symptoms, and since starting high dose steroids on admit pt has noted a significant improvement. -Currently on prednisone 60mg daily and will plan for steroid taper upon discharge, steroid taper has been sent from clinic; this was discussed with pt and spouse at today's visit. Maintenance IO tx will be on hold until pt adequately treated/recovered NSCLC: -Oncology history as dictated in the HPI -S/p robotic left upper lobe wedge resection with mediastinal lymph node dissection on 11/14/2023. -Completed 4 cycles of Carboplatin/Alimta on 03/31/2024 and adjuvant radiation therapy was completed on 04/23/2024. Staging CT chest/abdomen 04/24/2024 revealed no evidence of recurrent/metastatic disease with postsurgical changes in the left lung. -Given he had no evidence of disease progression, recommended proceeding with adjuvant durvalumab monthly for 1 year per the PACIFIC trial. He has yet to s tart durvalumab maintenance treatment -Treatment will be on hold until acute condition is resolved -Clinic f/u with Dr. Pascual Zamora scheduled on 06/25
== END 2024-06-12 16:32 | disposition home or self-care (01) | DRG 205 ==
LOC: EC 12:14 → 5NMEDONC 16:21
PROVIDERS: ADMIT Internal Medicine; ATTEND Internal Medicine
DX: J70.0 Acute pulmonary manifestations due to radiation (principal); J96.01 Acute respiratory failure with hypoxia; J44.1 Chronic obstructive pulmonary disease with (acute) exacerbation; J90 Pleural effusion, not elsewhere classified; E87.1 Hypo-osmolality and hyponatremia; C34.12 Malignant neoplasm of upper lobe, left bronchus or lung; K52.1 Toxic gastroenteritis and colitis; J98.4 Other disorders of lung; R79.89 Other specified abnormal findings of blood chemistry; I10 Essential (primary) hypertension; F32.A Depression, unspecified; F41.9 Anxiety disorder, unspecified; N40.0 Benign prostatic hyperplasia without lower urinary tract symptoms; J30.2 Other seasonal allergic rhinitis; J38.00 Paralysis of vocal cords and larynx, unspecified; G47.33 Obstructive sleep apnea (adult) (pediatric); D63.0 Anemia in neoplastic disease; E87.8 Other disorders of electrolyte and fluid balance, not elsewhere classified; T45.1X5A Adverse effect of antineoplastic and immunosuppressive drugs, initial encounter; R19.7 Diarrhea, unspecified; Z92.21 Personal history of antineoplastic chemotherapy; Z92.3 Personal history of irradiation; Z88.8 Allergy status to other drugs, medicaments and biological substances; Z87.891 Personal history of nicotine dependence; Z79.899 Other long term (current) drug therapy; Z90.2 Acquired absence of lung [part of]
CPT/HCPCS: 36415; 71045; 71046; 71260; 80048; 80053; 83605; 83735; 84100; 84145; 84484; 85025; 85610; 85730; 87636; 93005; 94640; 94760; 96372; 96374; 99291

== ENCOUNTER 2024-06-17 20:10 | Inpatient (IN) | payer MEDICARE ==
--- NOTE | 2024-06-17 20:16 | ED ---
SOB HPI - General Stated Complaint: Difficulty Breathing Time Seen by Provider: 06/17/24 20:13 Source: RN notes reviewed, old records reviewed Limitations: no limitations - History of Present Illness Initial Comments: This is a 74-year-old male to the ER for evaluation patient presents today for evaluation regards to severe dyspnea shortness of breath with severe hypoxia and route to the hospital patient had oxygen in the 60s was going to pass out and EMS was called MD Complaint: shortness of breath -: days(s) Severity: severe Severity scale (1-10): 10 Consistency: constant Improves With: nothing Known History Of: COPD, other (Pleural effusion history lung cancer history) Context: recent URI, recent illness Treatments Prior to Arrival: none - Related Data Home Medications Medication Instructions Recorded Confirmed ALPRAZolam [Xanax] 0.5 mg PO DAILY PRN 10/15/23 06/18/24 Albuterol Inhaler [Ventolin Hfa 1 puff INHALATION RT-Q6H PRN 10/15/23 06/18/24 Inhaler] Dutasteride 0.5 mg PO DAILY 10/15/23 06/18/24 Losartan/Hydrochlorothiazide 1 tab PO DAILY 10/15/23 06/18/24 [Losartan-Hctz 100-25 mg Tab] Metoprolol Succinate (ER) [Toprol 50 mg PO HS 10/15/23 06/18/24 XL] Sertraline [Zoloft] 50 mg PO HS 10/15/23 06/18/24 Tamsulosin [Flomax] 0.4 mg PO DAILY 10/15/23 06/18/24 traZODone HCL [Desyrel] 50 mg PO HS PRN 10/15/23 06/18/24 Cetirizine HCl [Zyrtec] 10 mg PO DAILY 06/07/24 06/18/24 OLANZapine [ZyPREXA] 2.5 mg PO DAILY PRN 06/07/24 06/18/24 amLODIPine [Norvasc] 10 mg PO DAILY 06/07/24 06/18/24 traMADol HCl [Ultram] 50 mg PO Q6H PRN 06/07/24 06/18/24 traZODone HCL [Desyrel] 50 mg PO HS 06/07/24 06/18/24 Clotrimazole/Betameth Cream 10 mg TOPICAL DAILY PRN 06/20/24 06/20/24 [Lotrisone] Previous Rx's Medication Instructions Recorded Ipratropium-Albuterol Nebulize 3 ml INHALATION RT-QID PRN #120 06/12/24 [Duoneb 0.5 mg-3 mg/3 ml Soln] each Pantoprazole [Protonix] 40 mg PO AC-BRKFST #30 tab 06/12/24 predniSONE See Taper PO DIRECTED #30 tab 06/12/24 Allergies Allergy/AdvReac Type Severity Reaction Status Date / Time bee venom protein (honey bee) Allergy Anaphylaxis Verified 06/18/24 08:32 ragweed pollen Allergy Itching Verified 06/18/24 08:32 BERRIES Allergy Swelling Uncoded 06/18/24 08:32 Review of Systems ROS Statement: Those systems with pertinent positive or pertinent negative responses have been documented in the HPI. ROS Other: All systems not noted in ROS Statement are negative. Past Medical History Past Medical History: Cancer, Chest Pain / Angina, Hypertension, Prostate Disorder, Sleep Apnea/CPAP/BIPAP Additional Past Medical History / Comment(s): uses cpap, recent difficutly breathing with exertion, chest pain approx 20yrs ago, bells palsy,elevated prostate numbers, had bx was clear,. 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 LUNG CA diagnosed November 2023. History of Any Multi-Drug Resistant Organisms: None Reported Past Surgical History: Appendectomy Additional Past Surgical History / Comment(s): kncule replacement. kidney stones with stent placement, anal fissure repair, left lobectomy November 2023. Past Anesthesia/Blood Transfusion Reactions: No Reported Reaction Additional Past Anesthesia/Blood Transfusion Reaction / Comment(s): "stopped breathing during anal fissure surgery" approx 20yrs Past Psychological History: Anxiety Smoking Status: Former smoker Past Alcohol Use History: None Reported Additional Past Alcohol Use History / Comment(s): 10-12 cigs per day approx last 40 yrs Past Drug Use History: Marijuana Additional Drug Use History / Comment(s): patient occasionally uses THC gummies to sleep. - Past Family History Mother Family Medical History: Cancer Additional Family Medical History / Comment(s): breast General Exam General appearance: alert, anxious, in distress Head exam: Present: atraumatic, normocephalic, normal inspection Eye exam: Present: normal appearance, PERRL, EOMI. Absent: scleral icterus, conjunctival injection, periorbital swelling ENT exam: Present: normal exam, mucous membranes moist Neck exam: Present: normal inspection. Absent: tenderness, meningismus, lymphadenopathy Respiratory exam: Present: normal lung sounds bilaterally. Absent: respiratory distress, wheezes, rales, rhonchi, stridor Cardiovascular Exam: Present: regular rate, normal rhythm, normal heart sounds. Absent: systolic murmur, diastolic murmur, rubs, gallop, clicks GI/Abdominal exam: Present: soft, normal bowel sounds. Absent: distended, tenderness, guarding, rebound, rigid Extremities exam: Present: normal inspection, full ROM, normal capillary refill. Absent: tenderness, pedal edema, joint swelling, calf tenderness Back exam: Present: normal inspection Neurological exam: Present: alert, oriented X3, CN II-XII intact Psychiatric exam: Present: normal affect, normal mood Skin exam: Present: warm, dry, intact, normal color. Absent: rash Course Vital Signs 06/17/24 06/17/24 06/18/24 20:12 22:24 00:51 Temperature 97.7 F 98.5 F Pulse Rate 78 74 73 Respiratory 20 20 Rate Blood Pressure 96/52 98/67 O2 Sat by Pulse 92 L 94 L Oximetry Fraction of Inspired Oxygen (FIO2) 06/18/24 06/18/24 06/18/24 00:59 01:55 04:22 Temperature 97.9 F Pulse Rate 74 72 55 L Respiratory 19 18 Rate Blood Pressure 108/72 O2 Sat by Pulse 93 L 99 Oximetry Fraction of Inspired Oxygen (FIO2) 06/18/24 06/18/24 06/18/24 07:48 08:35 08:45 Temperature Pulse Rate 70 72 75 Respiratory 18 Rate Blood Pressure 119/62 O2 Sat by Pulse 92 L Oximetry Fraction of Inspired Oxygen (FIO2) 06/18/24 06/18/24 06/18/24 08:52 09:56 11:22 Temperature Pulse Rate 72 78 Respiratory 18 18 Rate Blood Pressure 109/57 112/74 O2 Sat by Pulse 92 L 93 L 97 Oximetry Fraction of 90 Inspired Oxygen (FIO2) 06/18/24 06/18/24 06/18/24 11:32 11:42 12:28 Temperature Pulse Rate 72 74 78 Respiratory 18 Rate Blood Pressure 128/74 O2 Sat by Pulse 96 Oximetry Fraction of Inspired Oxygen (FIO2) 06/18/24 06/18/24 06/18/24 13:48 15:00 15:54 Temperature Pulse Rate 73 61 70 Respiratory 18 18 Rate Blood Pressure 124/73 O2 Sat by Pulse 99 100 Oximetry Fraction of 90 Inspired Oxygen (FIO2) 06/18/24 06/18/24 06/18/24 16:04 16:15 16:46 Temperature Pulse Rate 71 62 71 Respiratory 18 18 Rate Blood Pressure 137/79 O2 Sat by Pulse 100 99 Oximetry Fraction of Inspired Oxygen (FIO2) - Reevaluation(s) Reevaluation #1: 06/17/24 20:38 Medical records reviewed Reevaluation #2: 06/17/24 20:38 Patient symptoms improving with supplemental oxygen Reevaluation #3: 06/17/24 21:52 Patient informed of results questions answered Reevaluation #4: Was pt. sent in by a medical professional or institution (, PA, IT DESKTOP SUPPORT SPECIALIST, urgent care, hospital, or assisted...) When possible be specific @ -no Did you speak to anyone other than the patient for history (EMS, parent, family, police, friend...)? What history was obtained from this source @ -no Did you review nursing and triage notes (agree or disagree)? Why? @ -agree Are old charts reviewed (outside hosp., previous admission, EMS record, old EKG, old radiological studies, urgent care reports/EKG's, assisted records)? Report findings @ -yes Differential Diagnosis (chest pain, altered mental status, abdominal pain women, abdominal pain men, vaginal bleeding, weakness, fever, dyspnea, syncope, headache, dizziness, GI bleed, back pain, seizure, CVA, palpatations, mental health, musculoskeletal)? @ -prior EKG interpreted by me (3pts min.). @ -yes X-rays interpreted by me (1pt min.). @ -yes pulmonary edema CT interpreted by me (1pt min.). @ -no U/S interpreted by me (1pt. min.). @ -no What testing was considered but not performed or refused? (CT, X-rays, U/S, labs)? Why? @ -none What meds were considered but not given or refused? Why? @ -none Did you discuss the management of the patient with other professionals (professionals i.e. , PA, IT DESKTOP SUPPORT SPECIALIST, lab, RT, psych nurse, social science manager, senior clinical research scientist, teacher, boat officer, manager case management)? Give summary @ -no Was smoking cessation discussed for >3mins.? @ -no Was critical care preformed (if so, how long)? @ -yes31 Were there social determinants of health that impacted care today? How? (Homelessness, low income, unemployed, alcoholism, drug addiction, transportation, low edu. Level, literacy, decrease access to med. care, [facility], rehab)? @ -none Was there de-escalation of care discussed even if they declined (Discuss DNR or withdrawal of care, Hospice)? DNR status @ -no What co-morbidities impacted this encounter? (DM, HTN, Smoking, COPD, CAD, Cancer, CVA, ARF, Chemo, Hep., AIDS, mental health diagnosis, sleep apnea, morbid obesity)? @ -none Was patient admitted / discharged? Hospital course, mention meds given and route, prescriptions, significant lab abnormalities, going to OR and other pertinent info. @ - 74 male will be admitted with hypoxia, history of lung cancer lung surgery pleural effusion pulmonary edema Admitted Undiagnosed new problem with uncertain prognosis? @ -no Drug Therapy requiring intensive monitoring for toxicity (Heparin, Nitro, Insulin, Cardizem)? @ -no Were any procedures done? @ -no Diagnosis/symptom? @ -Oxygen respiratory failure pulmonary edema and cancer Acute, or Chronic, or Acute on Chronic? @ -Acute Uncomplicated (without systemic symptoms) or Complicated (systemic symptoms)? @ -Complicated Side effects of treatment? @ -no Exacerbation, Progression, or Severe Exacerbation? @ -exacerbation Poses a threat to life or bodily function? How? (Chest pain, [place], [place], pneumonia, PE, COPD, DKA, ARF, appy, cholecystitis, CVA, Diverticulitis, Homicidal, Suicidal, threat to staff... and all critical care pts) @ -yes respiratory failure Reevaluation #5: Differential Dyspnea: Coronary syndrome, arrhythmia, tamponade, asthma, COPD, pulmonary embolism, pneumonia, pneumothorax, pulmonary effusion, anaphylaxis, diabetic ketoacidosis, flailed chest, pulmonary contusion, diaphragmatic rupture, anemia, neuromuscular, this is not meant to be an all-inclusive list. - Consultations Consultation #1: Spoke with sound who can admit this patient Medical Decision Making - Medical Decision Making 74 male will be admitted with hypoxia, history of lung cancer lung surgery pleural effusion pulmonary edema - Lab Data Result diagrams: 06/23/24 05:28 06/23/24 05:28 Lab Results 06/17/24 06/17/24 06/17/24 Range/Units 20:19 20:19 20:19 WBC 8.8 (3.8-10.6) k/uL RBC 3.12 L (4.30-5.90) m/uL Hgb 9.3 L (13.0-17.5) gm/dL Hct 29.5 L (39.0-53.0) % MCV 94.5 (80.0-100.0) fL MCH 29.7 (25.0-35.0) pg MCHC 31.4 (31.0-37.0) g/dL RDW 17.3 H (11.5-15.5) % Plt Count 152 (150-450) k/uL MPV 7.8 Neutrophils % 95 % Lymphocytes % 1 % Monocytes % 3 % Eosinophils % 0 % Basophils % 0 % Neutrophils # 8.4 H (1.3-7.7) k/uL Lymphocytes # 0.1 L (1.0-4.8) k/uL Monocytes # 0.3 (0-1.0) k/uL Eosinophils # 0.0 (0-0.7) k/uL Basophils # 0.0 (0-0.2) k/uL Hypochromasia Moderate Anisocytosis Slight PT 12.5 (10.0-12.5) sec INR 1.2 H (<1.2) APTT 21.6 L (22.0-30.0) sec Sodium 134 L (137-145) mmol/L Potassium 4.9 (3.5-5.1) mmol/L Chloride 98 (98-107) mmol/L Carbon Dioxide 27 (22-30) mmol/L Anion Gap 9 mmol/L BUN 31 H (9-20) mg/dL Creatinine 0.85 (0.66-1.25) mg/dL Est GFR (CKD-EPI)AfAm >90 (>60 ml/min/1.73 sqM) Est GFR (CKD-EPI)NonAf 86 (>60 ml/min/1.73 sqM) Glucose 171 H (74-99) mg/dL Lactic Ac Sepsis Rflx Plasma Lactic Acid Haroon (0.7-2.0) mmol/L Calcium 9.1 (8.4-10.2) mg/dL Magnesium 2.2 (1.6-2.3) mg/dL Total Bilirubin 0.6 (0.2-1.3) mg/dL AST 24 (17-59) U/L ALT 19 (4-49) U/L Alkaline Phosphatase 113 (38-126) U/L Troponin I (0.000-0.034) ng/mL NT-Pro-B Natriuret Pep 646 pg/mL Total Protein 6.6 (6.3-8.2) g/dL Albumin 3.3 L (3.5-5.0) g/dL 06/17/24 06/17/24 06/17/24 Range/Units 20:19 20:19 21:21 WBC (3.8-10.6) k/uL RBC (4.30-5.90) m/uL Hgb (13.0-17.5) gm/dL Hct (39.0-53.0) % MCV (80.0-100.0) fL MCH (25.0-35.0) pg MCHC (31.0-37.0) g/dL RDW (11.5-15.5) % Plt Count (150-450) k/uL MPV Neutrophils % % Lymphocytes % % Monocytes % % Eosinophils % % Basophils % % Neutrophils # (1.3-7.7) k/uL Lymphocytes # (1.0-4.8) k/uL Monocytes # (0-1.0) k/uL Eosinophils # (0-0.7) k/uL Basophils # (0-0.2) k/uL Hypochromasia Anisocytosis PT (10.0-12.5) sec INR (<1.2) APTT (22.0-30.0) sec Sodium (137-145) mmol/L Potassium (3.5-5.1) mmol/L Chloride (98-107) mmol/L Carbon Dioxide (22-30) mmol/L Anion Gap mmol/L BUN (9-20) mg/dL Creatinine (0.66-1.25) mg/dL Est GFR (CKD-EPI)AfAm (>60 ml/min/1.73 sqM) Est GFR (CKD-EPI)NonAf (>60 ml/min/1.73 sqM) Glucose (74-99) mg/dL Lactic Ac Sepsis Rflx Y Plasma Lactic Acid Haroon 2.1 H* (0.7-2.0) mmol/L Calcium (8.4-10.2) mg/dL Magnesium (1.6-2.3) mg/dL Total Bilirubin (0.2-1.3) mg/dL AST (17-59) U/L ALT (4-49) U/L Alkaline Phosphatase (38-126) U/L Troponin I 0.012 (0.000-0.034) ng/mL NT-Pro-B Natriuret Pep pg/mL Total Protein (6.3-8.2) g/dL Albumin (3.5-5.0) g/dL - Radiology Data Radiology results: report reviewed (Chest x-ray is unchanged likely improved from prior), image reviewed Critical Care Time Critical Care Time: Yes Total Critical Care Time: 31 Disposition Clinical Impression: Acute exacerbation of chronic obstructive pulmonary disease, Mass of upper lobe of left lung, Pleural effusion, Hypoxia, Adenocarcinoma, lung Disposition: ADMITTED IP TO THIS HOSP Condition: Serious Is patient prescribed a controlled substance at d/c from ED?: No
[2024-06-17 21:07] LABS: ALT 19 U/L (4-49); AST 24 U/L (17-59); African American GFR (CKD) >90 (>60 ml/min/1.73 sqM); Albumin 3.3 g/dL (3.5-5.0); Alkaline Phosphatase 113 U/L (38-126); Anion Gap 9 mmol/L; Blood Urea Nitrogen 31 mg/dL (9-20); Calcium 9.1 mg/dL (8.4-10.2); Carbon Dioxide 27 mmol/L (22-30); Chloride 98 mmol/L (98-107); Glucose 171 mg/dL (74-99); Magnesium 2.2 mg/dL (1.6-2.3); Non-African American GFR(CKD) 86 (>60 ml/min/1.73 sqM); Potassium 4.9 mmol/L (3.5-5.1); Sodium 134 mmol/L (137-145); Total Bilirubin 0.6 mg/dL (0.2-1.3); Total Protein 6.6 g/dL (6.3-8.2)
--- NOTE | 2024-06-17 21:11 | XR ---
EXAMINATION TYPE: XR chest 2V DATE OF EXAM: 06/17/2024 9:03 PM COMPARISON: 06/09/2024 CLINICAL INDICATION: Male, 74 years old with history of difficulty breathing, TECHNIQUE: XR chest 2V view(s) obtained. FINDINGS: The heart size is normal. The pulmonary vasculature is normal. Infiltrates are in the right upper lobe in the upper and lower left lung. Left upper lung field may b e somewhat improved over the interval. There is some silhouetting the left diaphragm. IMPRESSION: 1. Bilateral lung infiltrates greater on the left. The left upper portion may be improving from natasha rison. [facility], Workstation: [facility], 06/17/2024 9:09 PM
[2024-06-17 21:13] LABS: INR 1.2 (<1.2); Partial Thromboplastin Time 21.6 sec (22.0-30.0); Prothrombin Time 12.5 sec (10.0-12.5)
[2024-06-17 21:15] LABS: NT-Pro-B-Type Natriuretic Pept 646 pg/mL
[2024-06-17 21:23] LABS: Anisocytosis Slight; Basophils % (A) 0 %; Eosinophils % (A) 0 %; HCT 29.5 % (39.0-53.0); HGB 9.3 gm/dL (13.0-17.5); Hypochromasia Moderate; Lymphocytes # (A) 0.1 k/uL (1.0-4.8); Lymphocytes % (A) 1 %; MCH 29.7 pg (25.0-35.0); MCHC 31.4 g/dL (31.0-37.0); MCV 94.5 fL (80.0-100.0); Mean Platelet Volume 7.8; Monocytes # (A) 0.3 k/uL (0-1.0); Monocytes % (A) 3 %; Neutrophils # (A) 8.4 k/uL (1.3-7.7); Neutrophils % (A) 95 %; Platelet Count 152 k/uL (150-450); RBC 3.12 m/uL (4.30-5.90); RDW 17.3 % (11.5-15.5); WBC 8.8 k/uL (3.8-10.6)
[2024-06-17] MEDS ORDERED: ONDANSETRON 4 MG/2 ML VIAL IVP PRN (21:49)
[2024-06-17] MEDS ORDERED: NALOXONE 0.4 MG/ML 1 ML VIAL IV PRN (21:49)
[2024-06-17] MEDS: MORPHINE SULFATE 4 MG/ML SYRINGE IVP STA (22:16)
[2024-06-17] MEDS: SODIUM CHLORIDE 0.9% 1,000 ML IV SCH (22:18)
[2024-06-18] MEDS ORDERED: IPRATROPIUM-ALBUTEROL 3 ML NEB INHALATION SCH
[2024-06-18 00:17] LABS: Anisocytosis Slight; Basophils % (A) 1 %; Eosinophils % (A) 0 %; HCT 28.7 % (39.0-53.0); HGB 9.4 gm/dL (13.0-17.5); Hypochromasia Moderate; Lymphocytes # (A) 0.2 k/uL (1.0-4.8); Lymphocytes % (A) 2 %; MCH 31.2 pg (25.0-35.0); MCHC 32.8 g/dL (31.0-37.0); MCV 95.2 fL (80.0-100.0); Mean Platelet Volume 8.2; Monocytes # (A) 0.3 k/uL (0-1.0); Monocytes % (A) 4 %; Neutrophils # (A) 8.9 k/uL (1.3-7.7); Neutrophils % (A) 94 %; Platelet Count 158 k/uL (150-450); RBC 3.01 m/uL (4.30-5.90); RDW 17.4 % (11.5-15.5); WBC 9.5 k/uL (3.8-10.6)
[2024-06-18] MEDS: IPRATROPIUM-ALBUTEROL 3 ML NEB INHALATION STA (00:48)
[2024-06-18] MEDS ORDERED: OLANZapine 2.5 MG TAB PO PRN (00:57)
[2024-06-18] MEDS ORDERED: traZODone HCL 50 MG TAB PO PRN (00:57)
[2024-06-18 01:08] LABS: ALT 17 U/L (4-49); AST 22 U/L (17-59); African American GFR (CKD) >90 (>60 ml/min/1.73 sqM); Albumin 3.3 g/dL (3.5-5.0); Alkaline Phosphatase 114 U/L (38-126); Anion Gap 8 mmol/L; Blood Urea Nitrogen 30 mg/dL (9-20); Calcium 9.1 mg/dL (8.4-10.2); Carbon Dioxide 27 mmol/L (22-30); Chloride 99 mmol/L (98-107); Glucose 124 mg/dL (74-99); Magnesium 2.3 mg/dL (1.6-2.3); Non-African American GFR(CKD) 86 (>60 ml/min/1.73 sqM); Phosphorus 4.8 mg/dL (2.5-4.5); Potassium 4.8 mmol/L (3.5-5.1); Sodium 134 mmol/L (137-145); Total Bilirubin 0.6 mg/dL (0.2-1.3); Total Protein 6.6 g/dL (6.3-8.2)
--- NOTE | 2024-06-18 01:21 | P.HPIM ---
History of Present Illness H&P Date: 06/17/24 Chief Complaint: Shortness of Breath Patient is a 74-year-old male with past medical history of stage IV lung cancer status postchemotherapy and radiation, hypertension, and BPH who presents to the ED with chief complaint of shortness of breath. Per patient, he completed radiation in May & chemotherapy in April. Patient reports over the past days to weeks, he has noticed that he gets increasingly short of breath with any type of exertion, even just getting up to go to the restroom. Patient also reports a nonproductive cough. Does also report that he was informed his hemoglobin was 8 and that it may be contributing to his symptoms.The patient's checked his SpO2 at home and found to be in the 50s which prompted them to seek further care. Patient reports that he wears 5 L of oxygen at home. He denied any chest pain, fevers, chills, nausea, vomiting, abdominal pain, diarrhea. ED documentation reviewed. Per ED, patient presents for evaluation of severe dyspnea was brought in by EMS and en route to the hospital oxygen saturations were reported to be in the 60s and patient reported he was going to pass out. Patient had been recently discharged from the hospital 5 days ago. He was admitted on 06/07 with similar complaint of exertional dyspnea and hypoxia. Pulmonology and oncology were following the patient during his hospital stay. Patient was started on bronchodilators, Solu-Medrol, and IV antibiotics. Recent chest CT showed developing groundglass opacities and infiltrate with consolidation in the left upper lobe and left perihilar region. Patient's respiratory status improved and he was discharged home with oxygen and a nebuliz er, and steroid course. Vitals on admission temperature 97.7, pulse 78 bpm, respiratory rate 20, blood pressure 96/52, O2 saturation 92% on 7 L nasal cannula which was escalated to 10 L high flow and saturation was improved to 94% EKG independently interpreted as sinus rhythm with ventricular rate of 78 bpm and QTc of 422 ms CXR shows bilateral lung infiltrates greater on the left Recent chest CT showed developing groundglass opacities and infiltrate with consolidation in the left upper lobe and left perihilar region. Labs on admission show WBC 8.8, hemoglobin 9.3, platelets 152. PT 12.5, INR 1.2, PTT 21.6. Sodium 134, potassium 4.9, chloride 98, bicarb 27, BUN 31, creatinine 0.85, glucose 171. Lactate 2.1. NT proBNP 646. Troponin negative. Review of systems: Pertinent positives and negatives as discussed in HPI, a complete review of systems was performed and all other systems are negative. Allergies: beestings & berries PCP: Dr. Braydon Villarreal Social history: Tobacco: quit smoking in May 2024, former 10-12 cigs a day x 40 years Alcohol: None Recreational drugs: Marijuana Gummies for sleep occasionally Travel: none Sick contacts: none Physical examination: Vital signs reviewed General: nontoxic, appears at stated age, currently on 10 L high flow nasal cannula, conversational dyspnea throughout encounter Derm: warm, dry, intact Head: atraumatic, normocephalic, symmetric Eyes: anicteric sclera Mouth: no lip lesion, mucus membranes moist Cardiovascular: S1 S2 reg, no murmur Lungs: Diminished breath sounds bilaterally, some rhonchi over left lung Abdominal: soft, non-tender to palpation, nondistended Extremities: No cyanosis, clubbing, or pedal edema. Neuro: Alert, Oriented to person, time and place, Gross neurological examination did not reveal any focal deficits. Cranial nerves II to XII grossly intact. Bilateral upper and lower extremity muscle strength intact and sensation intact. Psych: well appearing, appropriate affect Assessment/Plan: Patient is a 74-year-old male with stage IV lung cancer status post chemotherapy and radiation, hypertension, and BPH who presented to the ED with chief complaint of shortness of breath. Patient will be admitted to medicine service for acute chronic hypoxic respiratory failure. Active: Acute on chronic hypoxic respiratory failure likely secondary to radiation Acute COPD exacerbation Continue high flow 10 L to maintain saturations above 94%, wean as tolerated DuoNebs 4 times daily IV Solu-Medrol 60 mg every 6 hours Cardiac monitoring Follow-up Cepheid Follow-up procalcitonin Trend lactate Anemia of chronic disease Prerenal azotemia Hyponatremia Continue to monitor Chronic: Hypertension Continue amlodipine 10 mg Continue losartan diet 100 mg - 25 mg Continue metoprolol 50 mg BPH Continue Flomax Continue dutasteride Anxiety/depression Continue Zyprexa 2.5 mg daily Continue Zoloft 50 mg p.o. at bedtime Continue trazodone 50 mg p.o. at bedtime as needed F: 0.9% normal saline at 75 mL/h E: Replete as needed N: Heart healthy diet A: As tolerated DVT prophylaxis: Lovenox 40 mg subcu The patient is admitted with an anticipated more than 2 midnight stay for evaluation of acute hypoxic respiratory failure CODE STATUS: Full code Discussed with: Patient Anticipated discharge place: Home I have seen and evaluated the patient today. I Discussed the case with the resident and agree with the resident's findings I edited the assessment and plan as necessary as documented in the resident's note. Past Medical History Past Medical History: Cancer, Chest Pain / Angina, Hypertension, Prostate Di sorder, Sleep Apnea/CPAP/BIPAP Additional Past Medical History / Comment(s): uses cpap, recent difficutly breathing with exertion, chest pain approx 20yrs ago, bells palsy,elevated prostate numbers, had bx was clear,. 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 LUNG CA diagnosed November 2023. History of Any Multi-Drug Resistant Organisms: None Reported Past Surgical History: Appendectomy Additional Past Surgical History / Comment(s): kncule replacement. kidney stones with stent placement, anal fissure repair, left lobectomy November 2023. Past Anesthesia/Blood Transfusion Reactions: No Reported Reaction Additional Past Anesthesia/Blood Transfusion Reaction / Comment(s): "stopped breathing during anal fissure surgery" approx 20yrs Past Psychological History: Anxiety Smoking Status: Former smoker Past Alcohol Use History: None Reported Additional Past Alcohol Use History / Comment(s): 10-12 cigs per day approx last 40 yrs Past Drug Use History: Marijuana Additional Drug Use History / Comment(s): patient occasionally uses THC gummies to sleep. - Past Family History Mother Family Medical History: Cancer Additional Family Medical History / Comment(s): breast Medications and Allergies Home Medications Medication Instructions Recorded Confirmed Type ALPRAZolam [Xanax] 0.5 mg PO DAILY PRN 10/15/23 06/07/24 History Albuterol Inhaler [Ventolin Hfa 1 puff INHALATION RT-Q6H PRN 10/15/23 06/07/24 History Inhaler] Dutasteride 0.5 mg PO DAILY 10/15/23 06/07/24 History Losartan/Hydrochlorothiazide 1 tab PO DAILY 10/15/23 06/07/24 History [Losartan-Hctz 100-25 mg Tab] Metoprolol Succinate (ER) [Toprol 50 mg PO HS 10/15/23 06/07/24 History XL] Sertraline [Zoloft] 50 mg PO HS 10/15/23 06/07/24 History Tamsulosin [Flomax] 0.4 mg PO DAILY 10/15/23 06/07/24 History traZODone HCL [Desyrel] 50 mg PO HS PRN 10/15/23 06/07/24 History Cetirizine HCl [Zyrtec] 10 mg PO DAILY 06/07/24 06/07/24 History OLANZapine [ZyPREXA] 2.5 mg PO DAILY PRN 06/07/24 06/07/24 History amLODIPine [Norvasc] 10 mg PO DAILY 06/07/24 06/07/24 History traMADol HCl [Ultram] 50 mg PO Q6H PRN 06/07/24 06/07/24 History traZODone HCL [Desyrel] 50 mg PO HS 06/07/24 06/07/24 History Ipratropium-Albuterol Nebulize 3 ml INHALATION RT-QID PRN #120 06/12/24 Rx [Duoneb 0.5 mg-3 mg/3 ml Soln] each Pantoprazole [Protonix] 40 mg PO AC-BRKFST #30 tab 06/12/24 Rx predniSONE See Taper PO DIRECTED #30 tab 06/12/24 Rx Allergies Allergy/AdvReac Type Severity Reaction Status Date / Time ragweed pollen Allergy Itching Verified 06/17/24 20:22 Physical Exam Vitals: Vital Signs Temp Pulse Resp BP Pulse Ox 06/17/24 20:12 97.7 F 78 20 96/52 92 L Intake and Output 06/17/24 06/17/24 06/17/24 06:59 14:59 22:59 Other: Weight 86.183 kg Results CBC & Chem 7: 06/18/24 00:04 06/18/24 00:04 Labs: Abnormal Lab Results - Last 24 Hours (Table) 06/17/24 06/17/24 06/17/24 Range/Units 20:19 20:19 20:19 RBC 3.12 L (4.30-5.90) m/uL Hgb 9.3 L (13.0-17.5) gm/dL Hct 29.5 L (39.0-53.0) % RDW 17.3 H (11.5-15.5) % Neutrophils # 8.4 H (1.3-7.7) k/uL Lymphocytes # 0.1 L (1.0-4.8) k/uL INR 1.2 H (<1.2) APTT 21.6 L (22.0-30.0) sec Sodium 134 L (137-145) mmol/L BUN 31 H (9-20) mg/dL Glucose 171 H (74-99) mg/dL Plasma Lactic Acid Haroon (0.7-2.0) mmol/L Albumin 3.3 L (3.5-5.0) g/dL 06/17/24 Range/Units 20:19 RBC (4.30-5.90) m/uL Hgb (13.0-17.5) gm/dL Hct (39.0-53.0) % RDW (11.5-15.5) % Neutrophils # (1.3-7.7) k/uL Lymphocytes # (1.0-4.8) k/uL INR (<1.2) APTT (22.0-30.0) sec Sodium (137-145) mmol/L BUN (9-20) mg/dL Glucose (74-99) mg/dL Plasma Lactic Acid Haroon 2.1 H* (0.7-2.0) mmol/L Albumin (3.5-5.0) g/dL
[2024-06-18] MEDS: methylPREDNISolone SOD SUCCI 125 MG/2 ML VIAL IV SCH (01:34)
[2024-06-18 03:04] LABS: Influenza A Not Detected (Not Detectd); Influenza B Not Detected (Not Detectd); RSV Not Detected (Not Detectd)
--- NOTE | 2024-06-18 04:34 | P.CNPUL ---
History of Present Illness Consult date: 06/18/24 Requesting physician: Alex Murphy Reason for consult: dyspnea, hypoxemia Chief complaint: Shortness of breath; hypoxia History of present illness: Patient is a 74-year-old male with past medical history significant for stage III pulmonary adenocarcinoma. He is status post left upper lobectomy with mediastinal lymph node dissection done back in November,. Subsequently, started on chemotherapy and radiation therapy. His oncologist is Dr. Zamora. Last dose of chemotherapy was April,. He follows with Dr. Lancaster for radiation treatments. Last radiation treatment was May 24, 2024. Of note, patient recently admitted and discharged June 12. 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 Procalcitonin level was low. He was discharged on home oxygen and oral steroids. Patient states that his breathing never really returned to baseline. He is severely short of breath with minimal exertion such as getting up to the bathroom. His is at bedside, states his oxygen drops as low as 50%. She brought him to the emergency department for evaluation yesterday evening. He is currently being evaluated in ER, room 11. He is on 10 L high flow nasal cannula. He is awake and alert and no signs of CO2 narcosis. Nondistressed. Nontachypneic. No accessory muscle use. He states he has a persistent cough that is congested with minimal to no sputum production. Denies any fevers, chills, chest pain, hemoptysis. Denies any sick contacts. He has b een generally weak, and lost an additional 10 pounds over the last month or so. Appetite has been poor. Most recent chest CT done on his recent admission showing diffuse bilateral groundglass opacities, and postsurgical changes in the left lung. No enlarging mediastinal or hilar adenopathy. Chest x-ray that was done last night on his readmission to the hospital continues to show bilateral lung infiltrates greater on the left, left upper portion may be slightly improved. CBC is unremarkable for leukocytosis. Hemoglobin stable at 9.4 g/dL. Platelets 158. Previous procalcitonin level 0.34 and repeat is pending. CMP: Sodium 134, potassium 4.9, chloride 98, serum bicarb 27, BUN 31, creatinine 0.5, glucose 171. Lactic 2.1. Is unremarkable. Troponin 0.012. NT proBNP not significantly elevated, 646. Current vitals: Temperature 98.5 F, heart rate 74 bpm, blood pressure 98/67 mmHg, nontachypneic, SpO2 is 94% on 10 L high flow nasal cannula. Review of Systems Constitutional: Reports fatigue, Reports weight loss, Denies chills, Denies fever Ears, nose, mouth and throat: Reports hoarseness, Denies dysphagia, Denies headache, Denies nasal congestion, Denies nasal discharge, Denies odynophagia, Denies post-nasal drip, Denies sinus pain, Denies sinus pressure, Denies sore throat Cardiovascular: Denies chest pain, Denies leg edema, Denies orthopnea, Denies palpitations, Denies paroxysmal nocturnal dyspnea, Denies syncope Respiratory: Reports cough, Reports dyspnea, Reports home oxygen, Denies congestion, Denies cough with sputum, Denies excessive sputum, Denies hemoptysis, Denies pain on inspiration, Denies wheezing Gastrointestinal: Reports loss of appetite, Denies abdominal pain, Denies constipation, Denies diarrhea, Denies nausea, Denies vomiting Genitourinary: Denies dysuria Musculoskeletal: Denies limitation of motion Integumentary: Denies rash Neurological: Denies seizures, Denies syncope Psychiatric: Denies anxiety, Denies depression Past Medical History Past Medical History: Cancer, Chest Pain / Angina, Hypertension, Prostate Disorder, Sleep Apnea/CPAP/BIPAP Additional Past Medical History / Comment(s): uses cpap, recent difficutly breathing with exertion, chest pain approx 20yrs ago, bells palsy,elevated prostate numbers, had bx was clear,. 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 LUNG CA diagnosed November 2023. History of Any Multi-Drug Resistant Organisms: None Reported Past Surgical History: Appendectomy Additional Past Surgical History / Comment(s): kncule replacement. kidney stones with stent placement, anal fissure repair, left lobectomy November 2023. Past Anesthesia/Blood Transfusion Reactions: No Reported Reaction Additional Past Anesthesia/Blood Transfusion Reaction / Comment(s): "stopped breathing during anal fissure surgery" approx 20yrs Past Psychological History: Anxiety Smoking Status: Former smoker Past Alcohol Use History: None Reported Additional Past Alcohol Use History / Comment(s): 10-12 cigs per day approx last 40 yrs Past Drug Use History: Marijuana Additional Drug Use History / Comment(s): patient occasionally uses THC gummies to sleep. - Past Family History Mother Family Medical History: Cancer Additional Family Medical History / Comment(s): breast Medications and Allergies Home Medications Medication Instructions Recorded Confirmed Type ALPRAZolam [Xanax] 0.5 mg PO DAILY PRN 10/15/23 06/07/24 History Albuterol Inhaler [Ventolin Hfa 1 puff INHALATION RT-Q6H PRN 10/15/23 06/07/24 History Inhaler] Dutasteride 0.5 mg PO DAILY 10/15/23 06/07/24 History Losartan/Hydrochlorothiazide 1 tab PO DAILY 10/15/23 06/07/24 History [Losartan-Hctz 100-25 mg Tab] Metoprolol Succinate (ER) [Toprol 50 mg PO HS 10/15/23 06/07/24 History XL] Sertraline [Zoloft] 50 mg PO HS 10/15/23 06/07/24 History Tamsulosin [Flomax] 0.4 mg PO DAILY 10/15/23 06/07/24 History traZODone HCL [Desyrel] 50 mg PO HS PRN 10/15/23 06/07/24 History Cetirizine HCl [Zyrtec] 10 mg PO DAILY 06/07/24 06/07/24 History OLANZapine [ZyPREXA] 2.5 mg PO DAILY PRN 06/07/24 06/07/24 History amLODIPine [Norvasc] 10 mg PO DAILY 06/07/24 06/07/24 History traMADol HCl [Ultram] 50 mg PO Q6H PRN 06/07/24 06/07/24 History traZODone HCL [Desyrel] 50 mg PO HS 06/07/24 06/07/24 History Ipratropium-Albuterol Nebulize 3 ml INHALATION RT-QID PRN #120 06/12/24 Rx [Duoneb 0.5 mg-3 mg/3 ml Soln] each Pantoprazole [Protonix] 40 mg PO AC-BRKFST #30 tab 06/12/24 Rx predniSONE See Taper PO DIRECTED #30 tab 06/12/24 Rx Allergies Allergy/AdvReac Type Severity Reaction Status Date / Time ragweed pollen Allergy Itching Verified 06/17/24 20:22 Physical Exam Vitals: Vital Signs Temp Pulse Resp BP Pulse Ox 06/18/24 00:51 73 06/17/24 22:24 98.5 F 74 20 98/67 94 L 06/17/24 20:12 97.7 F 78 20 96/52 92 L Intake and Output 06/17/24 06/17/24 06/18/24 14:59 22:59 06:59 Other: Weight 86.183 kg GENERAL EXAM: Alert, 74-year-old well-nourished male, on 10 L high flow, comfortable in no apparent distress. HEAD: Normocephalic and atraumatic EYES: Normal reaction of pupils, equal size. NOSE: Clear with pink turbinates. THROAT: No erythema or exudates. No white plaques or thrush. NECK: No masses, no JVD. CHEST: No chest wall deformity. Previous thoracotomy scar well-approximated LUNGS: Equal air entry with posterior lower right lung with inspiratory crackles, left lower lung diminished to auscultation, anterior expiratory wheezes noted bilaterally. On 10 L high flow nasal cannula, no accessory muscle use or conversational dyspnea or noted respiratory distress.. CVS: S1 and S2 normal with no audible murmur, regular rhythm. No extra heart sounds ABDOMEN: No hepatosplenomegaly, active bowel sounds, no guarding or rigidity. SPINE: No scoliosis or deformity SKIN: No rashes CENTRAL NERVOUS SYSTEM: No focal deficits, tone is normal in all 4 extremities. EXTREMITIES: There is no peripheral edema, clubbing, or cyanosis. Peripheral p ulses are intact. Results - Laboratory Findings CBC and BMP: 06/18/24 00:04 06/18/24 00:04 ABG WBC 9.5 k/uL (3.8-10.6) 06/18/24 00:04 RBC 3.01 m/uL (4.30-5.90) L 06/18/24 00:04 Hgb 9.4 gm/dL (13.0-17.5) L 06/18/24 00:04 Hct 28.7 % (39.0-53.0) L 06/18/24 00:04 MCV 95.2 fL (80.0-100.0) 06/18/24 00:04 MCH 31.2 pg (25.0-35.0) 06/18/24 00:04 MCHC 32.8 g/dL (31.0-37.0) 06/18/24 00:04 RDW 17.4 % (11.5-15.5) H 06/18/24 00:04 Plt Count 158 k/uL (150-450) 06/18/24 00:04 MPV 8.2 06/18/24 00:04 Neutrophils % 94 % 06/18/24 00:04 Lymphocytes % 2 % 06/18/24 00:04 Monocytes % 4 % 06/18/24 00:04 Eosinophils % 0 % 06/18/24 00:04 Basophils % 1 % 06/18/24 00:04 Neutrophils # 8.9 k/uL (1.3-7.7) H 06/18/24 00:04 Lymphocytes # 0.2 k/uL (1.0-4.8) L 06/18/24 00:04 Monocytes # 0.3 k/uL (0-1.0) 06/18/24 00:04 Eosinophils # 0.0 k/uL (0-0.7) 06/18/24 00:04 Basophils # 0.0 k/uL (0-0.2) 06/18/24 00:04 Hypochromasia Moderate 06/18/24 00:04 Anisocytosis Slight 06/18/24 00:04 PT 12.5 sec (10.0-12.5) 06/17/24 20:19 INR 1.2 (<1.2) H 06/17/24 20:19 APTT 21.6 sec (22.0-30.0) L 06/17/24 20:19 Sodium 134 mmol/L (137-145) L 06/17/24 20:19 Potassium 4.9 mmol/L (3.5-5.1) 06/17/24 20:19 Chloride 98 mmol/L (98-107) 06/17/24 20:19 Carbon Dioxide 27 mmol/L (22-30) 06/17/24 20:19 Anion Gap 9 mmol/L 06/17/24 20:19 BUN 31 mg/dL (9-20) H 06/17/24 20:19 Creatinine 0.85 mg/dL (0.66-1.25) 06/17/24 20:19 Est GFR (CKD-EPI)AfAm >90 (>60 ml/min/1.73 sqM) 06/17/24 20:19 Est GFR (CKD-EPI)NonAf 86 (>60 ml/min/1.73 sqM) 06/17/24 20:19 Glucose 171 mg/dL (74-99) H 06/17/24 20:19 Lactic Ac Sepsis Rflx Y 06/17/24 21:21 Plasma Lactic Acid Haroon 2.1 mmol/L (0.7-2.0) H* 06/17/24 20:19 Calcium 9.1 mg/dL (8.4-10.2) 06/17/24 20:19 Magnesium 2.2 mg/dL (1.6-2.3) 06/17/24 20:19 Total Bilirubin 0.6 mg/dL (0.2-1.3) 06/17/24 20:19 AST 24 U/L (17-59) 06/17/24 20:19 ALT 19 U/L (4-49) 06/17/24 20:19 Alkaline Phosphatase 113 U/L (38-126) 06/17/24 20:19 Troponin I 0.012 ng/mL (0.000-0.034) 06/17/24 20:19 NT-Pro-B Natriuret Pep 646 pg/mL 06/17/24 20:19 Total Protein 6.6 g/dL (6.3-8.2) 06/17/24 20:19 Albumin 3.3 g/dL (3.5-5.0) L 06/17/24 20:19 PT/INR, D-dimer PT 12.5 sec (10.0-12.5) 06/17/24 20:19 INR 1.2 (<1.2) H 06/17/24 20:19 Abnormal lab findings: Abnormal Labs 06/17/24 06/17/24 06/17/24 20:19 20:19 20:19 RBC 3.12 L Hgb 9.3 L Hct 29.5 L RDW 17.3 H Neutrophils # 8.4 H Lymphocytes # 0.1 L INR 1.2 H APTT 21.6 L Sodium 134 L BUN 31 H Glucose 171 H Plasma Lactic Acid Haroon Albumin 3.3 L 06/17/24 06/18/24 20:19 00:04 RBC 3.01 L Hgb 9.4 L Hct 28.7 L RDW 17.4 H Neutrophils # 8.9 H Lymphocytes # 0.2 L INR APTT Sodium BUN Glucose Plasma Lactic Acid Haroon 2.1 H* Albumin - Diagnostic Findings Chest x-ray: image reviewed Assessment and Plan Assessment: Acute hypoxemic respiratory failure, currently on 10 L high flow nasal cannula, possibly secondary to radiation pneumonitis. CT scan of the chest performed 06/10/2024 revealed groundglass opacities and infiltrate with consolidation in the left upper lobe and right perihilar region. Procalcitonin level previously low. Repeat chest x-ray done on this readmission showing similar diffuse bilateral lung infiltrates/opacities with possible slight improvement in the left upper lung. Acute COPD exacerbation Acute dyspnea, secondary to above History of left upper lobectomy in November 2023 for pulmonary adenocarcinoma. Completed chemotherapy in April 2024. Completed radiation May 24, 2024. History of vocal cord paralysis Anemia, hemoglobin stable Hypertension Obstructive sleep apnea, uses nasal CPAP at home Former smoker History of anxiety Plan: Patient's medications, labs, imaging reviewed Continue supplemental oxygen maintain oxygen saturation of 92% or greater We will start patient on high-dose steroids Continue bronchodilators Repeat procalcitonin level Will hold off on antibiotics at this time Check viral screen GI: prophylaxis: Pepcid Case will be discussed with Dr. Myers later this morning. We will continue to follow I have personally seen and examined the patient, performed the documentation and the assessment and plan as written. Number of minutes spent on the visit:20 This is a joint evaluation that was done along with the nurse practitioner. This evaluation was done and more than 30 minutes. The patient is known to have pulmonary adenocarcinoma and the patient is status post left upper lobectomy on 11/14/2023 with a complicated postoperative course. Postop staging was 38 with T2 N2 disease. The next generation genetic sequencing showed no evidence of any targetable mutations. Based on that, the patient received a total of 4 cycles of systemic chemotherapy using carboplatinum and Alimta which she completed on 03/31/2024. He also received adjuvant radiation therapy that he completed on 04/23/2024. Staging CAT scan of the chest and abdomen done on 04/24/2024 showed no evidence of any metastatic disease and that showed essentially postsurgical changes. Based on those findings, it was decided to continue ongoing treatment with durvalumab for a total of 1 year. Nevertheless, the patient started experiencing worsening shortness of breath which initially was treated on an outpatient basis through oncology with moxifloxacin for a total of 7 days. Subsequently, his condition decompensated and he was hospitalized on 06/08/2024 for hypoxic respiratory failure and the patient was given further antibiotic treatment and steroids. The patient was discharged home on 06/12/2024 and at the time of discharge, the patient was given prednisone burst taper and DuoNeb neb ulized treatments. The patient came back to the emergency department yesterday with worsening shortness of breath and ongoing hypoxemia. Viral 4 Plex has been negative. Labs are essentially within normal limits. No significant leukocytosis. Note that his procalcitonin level from his last admission was nonelevated at 0.34. proBNP level is not elevated. Troponins are negative. The most recent CAT scan of the chest done on 06/09/2024 shows postsurgical changes in the left lung. There is also development of groundglass opacities infiltrates and consolidation in the left lung and right perihilar region, and the findings are quite suspicious for radiation pneumonitis. A follow-up chest x-ray from 06/17/2023 shows similar findings. Currently, the patient is on 10 L of oxygen by nasal cannula high flow with a pulse ox of 99%. The patient was restarted on systemic steroids and the patient is currently on IV Solu-Medrol 60 mg every 6 hours. He is on Lovenox for DVT prophylaxis. Outpatient medication have been resumed. He is also on normal saline at rate of 75 cc an hour. Will recheck procalcitonin level. Will continue to follow. Time with Patient: Greater than 30
[2024-06-18 07:30] LABS: Anisocytosis Slight; Basophils % (A) 0 %; Eosinophils % (A) 0 %; HCT 30.8 % (39.0-53.0); HGB 9.5 gm/dL (13.0-17.5); Hypochromasia Marked; Lymphocytes # (A) 0.2 k/uL (1.0-4.8); Lymphocytes % (A) 3 %; MCV 96.7 fL (80.0-100.0); Monocytes # (A) 0.3 k/uL (0-1.0); Monocytes % (A) 4 %; Neutrophils # (A) 8.1 k/uL (1.3-7.7); Neutrophils % (A) 94 %; Platelet Count 166 k/uL (150-450); RBC 3.19 m/uL (4.30-5.90); RDW 17.4 % (11.5-15.5); WBC 8.6 k/uL (3.8-10.6)
[2024-06-18 07:45] LABS: African American GFR (CKD) >90 (>60 ml/min/1.73 sqM); Anion Gap 10 mmol/L; Blood Urea Nitrogen 33 mg/dL (9-20); Calcium 9.4 mg/dL (8.4-10.2); Carbon Dioxide 26 mmol/L (22-30); Chloride 101 mmol/L (98-107); Glucose 149 mg/dL (74-99); Non-African American GFR(CKD) >90 (>60 ml/min/1.73 sqM); Potassium 4.9 mmol/L (3.5-5.1); Sodium 137 mmol/L (137-145)
[2024-06-18] MEDS: IPRATROPIUM-ALBUTEROL 3 ML NEB INHALATION SCH (08:34)
[2024-06-18] MEDS: TAMSULOSIN 0.4 MG CAP.ER.24H PO SCH (08:57)
[2024-06-18] MEDS: FINASTERIDE 5 MG TAB PO SCH (08:57)
[2024-06-18] MEDS: ENOXAPARIN 40 MG/0.4 ML SYRINGE SQ SCH (08:57)
[2024-06-18] MEDS: FAMOTIDINE 20 MG TAB PO SCH (08:58)
[2024-06-18] MEDS ORDERED: LOSARTAN-HCTZ 50-12.5 MG 1 EACH TAB PO SCH (09:00)
[2024-06-18] MEDS ORDERED: amLODIPine 10 MG TAB PO SCH (09:00)
[2024-06-18] MEDS: MORPHINE SULFATE 4 MG/ML SYRINGE IVP PRN (10:16)
--- NOTE | 2024-06-18 11:27 | CT ---
EXAMINATION TYPE: CT angio chest DATE OF EXAM: 06/18/2024 COMPARISON: Chest CT 8 days earlier HISTORY: lung ca/shlomo CT DLP: 365.1 mGycm. Automated Exposure Control for Dose Reduction was Utilized. CONTRAST: CTA scan of the thorax is performed with IV Contrast, patient injected with 100ml mL of Isovue 370, p ulmonary embolism protocol. MIP Images are created on CT scanner and reviewed. FINDINGS: LUNGS: Left-sided volume loss is redemonstrated with mediastinal shift and elevated left hemidiaphrag m. Bilateral multifocal groundglass opacities organizing consolidation are again seen. Groundglass op acities slightly more prominent in the right lung on the current study versus prior. Left lung findin gs fairly stable. Fairly stable pleural thickening posterior left lung base. Mild to moderate central left-sided bronchiectasis again seen. MEDIASTINUM: There is satisfactory enhancement of the pulmonary artery and its branches, there is no CT evidence for pulmonary embolism. Surgical change left hilar region is redemonstrated. Satisfactory enhancement of the aorta without aneurysm or dissection. Coronary artery calcification is redemonstr ated. OTHER: No additional significant abnormality is seen. IMPRESSION: No CT evidence for acute pulmonary embolism. Worsening right lung multifocal groundglass opacities suggest worsening right-sided acute infectious process. Correlate clinically. Posttreatment change and possible acute infectious involvement in the left lung is not significantly changed from most recent prior CT. [facility], , 06/18/2024 11:24 AM
[2024-06-18] MEDS: AZITHROMYCIN 500 MG in SODIUM CHLORIDE 0.9% 250 ML IVPB SCH (13:50)
--- NOTE | 2024-06-18 14:39 | P.PN ---
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 He was admitted on 06/07 with similar complaint of exertional dyspnea and hypoxia. Pulmonology and oncology were following the patient during his hospital stay. Patient was started on bronchodilators, Solu-Medrol, and IV antibiotics. Recent chest CT showed developing groundglass opacities and infiltrate with consolidation in the left upper lobe and left perihilar region. Patient's respiratory status improved and he was discharged home with oxygen and a nebulizer, and steroid course. Vitals on admission temperature 97.7, pulse 78 bpm, respiratory rate 20, blood pressure 96/52, O2 saturation 92% on 7 L nasal cannula which was escalated to 10 L high flow and saturation was improved to 94%. EKG as sinus rhythm with ventricular rate of 78 bpm and QTc of 422 ms. CXR shows bilateral lung infiltrates greater on the left. Recent chest CT showed developing groundglass opacities and infiltrate with consolidation in the left upper lobe and left perihilar region. Labs on admission show WBC 8.8, hemoglobin 9.3, platelets 152. PT 12.5, INR 1.2, PTT 21.6. Sodium 134, potassium 4.9, chloride 98, bicarb 27, BUN 31, creatinine 0.85, glucose 171. Lactate 2.1. NT proBNP 646. Troponin negative. Patient started on IV steroids, IV antibiotics, bronchodilators. Also on Airvo. Pulmonology and oncology following. Subjective: Patient seen and examined at bedside. No acute events overnight. Still having significant shortness of breath. Pertinent positives and negatives as discussed above, a complete review of systems was performed and all other systems are negative. Vitals Signs Reviewed. General: Nontoxic, no distress, appears at stated age, chronically ill-appearing Derm: Warm, dry Head: Atraumatic, normocephalic, symmetric Eyes: EOMI, no lid lag, anicteric sclera Mouth: No lip lesion, mucus membranes moist Cardiovascular: S1S2 reg, no murmur Lungs: Bilateral rhonchi, more on left side, no accessory muscle use, supplemental oxygen Abdominal: Soft, nontender to palpation, no guarding, no appreciable organomegaly Ext: No gross muscle atrophy, no edema, no contractures Neuro: CN II-XI grossly intact, no focal neuro deficits Psych: Alert, oriented, appropriate affect Data Reviewed Today: Pertinent Labs: Hemoglobin 9.5, WBC 8.6, creatinine 0.73, lactate 2.3, glucose 149 Imaging: CTA chest shows no PE, worsening right lung multifocal groundglass opacities, persistent left lung posttreatment changes. Assessment and Plan: Patient is severely ill, needs close monitoring. Prognosis guarded. Active: Acute on chronic hypoxic respiratory failure likely secondary to radiation pneumonitis Pulmonary adenocarcinoma Acute COPD exacerbation Possible multifocal bacterial pneumonia Lactic acidosis, likely secondary to hypoxia -Pulmonology note reviewed, on IV Solu-Medrol 60 mg every 6 hours, DuoNebs 4 times daily -Azithromycin 500 mg IV daily, ceftriaxone 1 g IV every 24 hours per oncology -Procalcitonin negative -Low suspicion for pneumonia -Will get sputum cultures -Continue wean oxygen, currently on Airvo History of hypertension -Hold amlodipine, losartan, hydrochlorothiazide -Okay to continue metoprolol 50 nightly Chronic normocytic anemia -Continue to monitor, no active bleeding Mild hyponatremia, resolved Chronic: GERD BPH Depression/anxiety DVT ppx: Lovenox Code status: Full code Anticipated discharge place: Pending clinical course Anticipated discharge time: Pending clinical course Objective - Vital Signs Vital signs: Vital Signs Temp 97.9 F 06/18/24 01:55 Pulse 73 06/18/24 13:48 Resp 18 06/18/24 13:48 BP 124/73 06/18/24 13:48 Pulse Ox 99 06/18/24 13:48 FiO2 90 06/18/24 09:56 Intake & Output 06/17/24 06/18/24 06/18/24 18:59 06:59 18:59 Weight 86.183 kg - Labs CBC & Chem 7: 06/18/24 07:00 06/18/24 07:00 Labs: Abnormal Lab Results - Last 24 Hours (Table) 06/17/24 06/17/24 06/17/24 Range/Units 20:19 20:19 20:19 RBC 3.12 L (4.30-5.90) m/uL Hgb 9.3 L (13.0-17.5) gm/dL Hct 29.5 L (39.0-53.0) % RDW 17.3 H (11.5-15.5) % Neutrophils # 8.4 H (1.3-7.7) k/uL Lymphocytes # 0.1 L (1.0-4.8) k/uL INR 1.2 H (<1.2) APTT 21.6 L (22.0-30.0) sec Sodium 134 L (137-145) mmol/L BUN 31 H (9-20) mg/dL Glucose 171 H (74-99) mg/dL Plasma Lactic Acid Haroon (0.7-2.0) mmol/L Phosphorus (2.5-4.5) mg/dL Albumin 3.3 L (3.5-5.0) g/dL 06/17/24 06/18/24 06/18/24 Range/Units 20:19 00:04 00:04 RBC 3.01 L (4.30-5.90) m/uL Hgb 9.4 L (13.0-17.5) gm/dL Hct 28.7 L (39.0-53.0) % RDW 17.4 H (11.5-15.5) % Neutrophils # 8.9 H (1.3-7.7) k/uL Lymphocytes # 0.2 L (1.0-4.8) k/uL INR (<1.2) APTT (22.0-30.0) sec Sodium 134 L (137-145) mmol/L BUN 30 H (9-20) mg/dL Glucose 124 H (74-99) mg/dL Plasma Lactic Acid Haroon 2.1 H* (0.7-2.0) mmol/L Phosphorus 4.8 H (2.5-4.5) mg/dL Albumin 3.3 L (3.5-5.0) g/dL 06/18/24 06/18/24 06/18/24 Range/Units 07:00 07:00 07:00 RBC 3.19 L (4.30-5.90) m/uL Hgb 9.5 L (13.0-17.5) gm/dL Hct 30.8 L (39.0-53.0) % RDW 17.4 H (11.5-15.5) % Neutrophils # 8.1 H (1.3-7.7) k/uL Lymphocytes # 0.2 L (1.0-4.8) k/uL INR (<1.2) APTT (22.0-30.0) sec Sodium (137-145) mmol/L BUN 33 H (9-20) mg/dL Glucose 149 H (74-99) mg/dL Plasma Lactic Acid Haroon 2.8 H* (0.7-2.0) mmol/L Phosphorus (2.5-4.5) mg/dL Albumin (3.5-5.0) g/dL 06/18/24 Range/Units 10:40 RBC (4.30-5.90) m/uL Hgb (13.0-17.5) gm/dL Hct (39.0-53.0) % RDW (11.5-15.5) % Neutrophils # (1.3-7.7) k/uL Lymphocytes # (1.0-4.8) k/uL INR (<1.2) APTT (22.0-30.0) sec Sodium (137-145) mmol/L BUN (9-20) mg/dL Glucose (74-99) mg/dL Plasma Lactic Acid Haroon 2.3 H* (0.7-2.0) mmol/L Phosphorus (2.5-4.5) mg/dL Albumin (3.5-5.0) g/dL
--- NOTE | 2024-06-18 20:04 | P.CONS ---
History of Present Illness - Reason for Consult Consult date: 06/18/24 lung cancer Requesting physician: Alex Murphy - Chief Complaint SOB - History of Present Illness Mr. Trevino is a 74-year-old gentleman with a past medical history significant for hypertension and COPD, and stage IIIA non-small cell lung cancer, who follows with Dr. Silke Zamora. He initially presented after noticing progressive shortness of breath in August 2023, he did see his primary care physician who ordered chest x-ray that was felt to be abnormal. He had a PET/CT at [facility] in late August to early September 2023 that noted left upper lobe lesion measuring 1.7 x 1.5 cm with an SUV of 23.5. There were additional scattered pulmonary nodules that did not have FDG uptake. He did have lymphadenopathy with reported lymph node measuring 2.5 cm and SUV of 19.7. Transbronchial biopsy attempted for the left upper lobe lesion on 10/18/2023 was nondiagnostic. He proceeded to have robotic left upper lobe wedge resection with mediastinal lymph node dissection on 11/14/2023. During the procedure, he had extensive blood loss up to 3 L with the procedure being converted to an open thoracotomy with left upper lobectomy. He received a total of 5 units of packed red blood cells, 1.2 L of albumin, and 3 L of crystalloid fluids. He is also noted to have pneumothorax postoperatively. He was in the intensive care unit during this time and required Levophed for hypovolemic shock. He was eventually discharged on 11/26/2023 with chest tubes being removed. Postoperative pathology noted 1.6 cm tumor in the left upper lobe being consistent with mixed invasive mucinous and nonmucinous adenocarcinoma that was grade 2-3. There was evidence of visceral pleural invasion, focal lymphovascular invasion, and positive vascular margin in the lobectomy specimen. 2 level 3 lymph nodes and one 5L lymph node or positive for adenocarcinoma. Pathologic staging was pT2aN2, consistent with stage IIIA. Circulating tumor DNA analysis noted ALK variant of unknown significance with no other targetable mutations. NGS from the tissue noted ERBB2 mutation ([id number]) with PD-L1 of 17% and tumor mutation burden of 24.03 mutations per megabase. He proceeded with cycle 1 of reduced dose carboplatin/Alimta on 01/28/2024 (carboplatin AUC 4, Alimta reduced by 20%) and completed cycle 4 on 03/31/2024. Adjuvant radiation therapy was completed on 04/23/2024. Staging CT chest/abdomen 04/24/2024 revealed no evidence of recurrent/metastatic disease with postsurgical changes in the left lung. Given he had no evidence of disease progression, we discussed proceeding with adjuvant durvalumab monthly for 1 year per the PACIFIC trial since there were no EGFR/ALK pathogenic mutations, they were agreeable to the same, but has yet to start. At his last f/u on 05/28, he had c/o 7 to 10 days of progressive dyspnea on exertion, weakness, and subjective chills with intermittent dry heaving, anorexia, and 10 pound weight loss. He was started on empiric course of moxifloxacin 400 mg daily for 7 days. He also received 1 unit PRBCs on 06/06, due to symptomatic anemia with hgb 8.0 and subsequently presented to the emergency room with complaints of shortness of breath and hypoxia. He was given 1 dose Levaquin and started on high dose steroids. Pulmonology had felt this was low suspicion for pneumonia and more consistent with post radiation pneumonitis. Case was discussed with radiation oncology, and CT chest was obtained to further evaluate, showing developing groundglass opacities and infiltrate with consolidation in the left upper lobe and right perihilar region. However, pt didn't have any radiation to right lung, so developing opacities and infiltrate noted in right perihilar region, wasn't as convincing to be r/t radiation pneumonitis. But pt was on 7 day course of moxifloxacin prior to admit with no improvement in symptoms, and showed improvement with high dose steroids during admit, and he was subsequently discharged on slow steroid taper. Patient reports he was taking 60mg prednisone daily, but within 1-2 days of discharge SOB and hypoxia began to worsen, causing him to represent to the ER for further evaluation. Denies fever and chills, but still having non-productive cough. Upon admit chest x-ray showing bilateral lung infiltrates greater on the left. Patient has been started on IV steroids, Solu-Medrol 60 mg q6 and placed on Airvo. Viral panel negative. WBC 8.6, hemoglobin 9.5, platelets 166,000. Creatinine 0.73, GFR > 90, bilirubin/LFTs WNL. Lactic acid 2.8. Patient afebrile Review of Systems 10 point ROS is negative except as stated in the HPI Past Medical History Past Medical History: Cancer, Chest Pain / Angina, Hypertension, Prostate Disorder, Sleep Apnea/CPAP/BIPAP Additional Past Medical History / Comment(s): uses cpap, recent difficutly breathing with exertion, chest pain approx 20yrs ago, bells palsy,elevated prostate numbers, had bx was clear,. 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 LUNG CA diagnosed November 2023. History of Any Multi-Drug Resistant Organisms: None Reported Past Surgical History: Appendectomy Additional Past Surgical History / Comment(s): kncule replacement. kidney stones with stent placement, anal fissure repair, left lobectomy November 2023. Past Anesthesia/Blood Transfusion Reactions: No Reported Reaction Additional Past Anesthesia/Blood Transfusion Reaction / Comm: "stopped breathing during anal fissure surgery" approx 20yrs Past Psychological History: Anxiety Smoking Status: Former smoker Past Alcohol Use History: None Reported Additional Past Alcohol Use History / Comment(s): 10-12 cigs per day approx last 40 yrs Past Drug Use History: Marijuana Additional Drug Use History / Comment(s): patient occasionally uses THC gummies to sleep. - Past Family History Mother Family Medical History: Cancer Additional Family Medical History / Comment(s): breast Medications and Allergies Home Medications Medication Instructions Recorded Confirmed Type ALPRAZolam [Xanax] 0.5 mg PO DAILY PRN 10/15/23 06/18/24 History Albuterol Inhaler [Ventolin Hfa 1 puff INHALATION RT-Q6H PRN 10/15/23 06/18/24 History Inhaler] Dutasteride 0.5 mg PO DAILY 10/15/23 06/18/24 History Losartan/Hydrochlorothiazide 1 tab PO DAILY 10/15/23 06/18/24 History [Losartan-Hctz 100-25 mg Tab] Metoprolol Succinate (ER) [Toprol 50 mg PO HS 10/15/23 06/18/24 History XL] Sertraline [Zoloft] 50 mg PO HS 10/15/23 06/18/24 History Tamsulosin [Flomax] 0.4 mg PO DAILY 10/15/23 06/18/24 History traZODone HCL [Desyrel] 50 mg PO HS PRN 10/15/23 06/18/24 History Cetirizine HCl [Zyrtec] 10 mg PO DAILY 06/07/24 06/18/24 History OLANZapine [ZyPREXA] 2.5 mg PO DAILY PRN 06/07/24 06/18/24 History amLODIPine [Norvasc] 10 mg PO DAILY 06/07/24 06/18/24 History traMADol HCl [Ultram] 50 mg PO Q6H PRN 06/07/24 06/18/24 History traZODone HCL [Desyrel] 50 mg PO HS 06/07/24 06/18/24 History Ipratropium-Albuterol Nebulize 3 ml INHALATION RT-QID PRN #120 06/12/24 06/18/24 Rx [Duoneb 0.5 mg-3 mg/3 ml Soln] each Pantoprazole [Protonix] 40 mg PO AC-BRKFST #30 tab 06/12/24 06/18/24 Rx predniSONE See Taper PO DIRECTED #30 tab 06/12/24 06/18/24 Rx Allergies Allergy/AdvReac Type Severity Reaction Status Date / Time bee venom protein (honey bee) Allergy Anaphylaxis Verified 06/18/24 08:32 ragweed pollen Allergy Itching Verified 06/18/24 08:32 BERRIES Allergy Swelling Uncoded 06/18/24 08:32 Physical Exam Vitals: Vital Signs Temp Pulse Resp BP Pulse Ox FiO2 06/18/24 09:56 93 L 90 06/18/24 08:52 72 18 109/57 92 L 06/18/24 08:45 75 06/18/24 08:35 72 06/18/24 07:48 70 18 119/62 92 L 06/18/24 04:22 55 L 18 99 06/18/24 01:55 97.9 F 72 19 108/72 93 L 06/18/24 00:59 74 06/18/24 00:51 73 06/17/24 22:24 98.5 F 74 20 98/67 94 L 06/17/24 20:12 97.7 F 78 20 96/52 92 L Intake and Output 06/17/24 06/18/24 06/18/24 22:59 06:59 14:59 Other: Weight 86.183 kg - Constitutional General appearance: average body habitus, no acute distress - EENT Eyes: anicteric sclerae, EOMI ENT: hearing grossly normal - Respiratory breathing labored Respiratory: bilateral: diminished - Cardiovascular Rhythm: regular - Gastrointestinal General gastrointestinal: soft, no tenderness - Integumentary Integumentary: no cyanotic, no jaundiced - Psychiatric Psychiatric: A&O x's 3 Results CBC & Chem 7: 06/18/24 07:00 06/18/24 07:00 Labs: Abnormal Lab Results - Last 24 Hours (Table) 06/17/24 06/17/24 06/17/24 Range/Units 20:19 20:19 20:19 RBC 3.12 L (4.30-5.90) m/uL Hgb 9.3 L (13.0-17.5) gm/dL Hct 29.5 L (39.0-53.0) % RDW 17.3 H (11.5-15.5) % Neutrophils # 8.4 H (1.3-7.7) k/uL Lymphocytes # 0.1 L (1.0-4.8) k/uL INR 1.2 H (<1.2) APTT 21.6 L (22.0-30.0) sec Sodium 134 L (137-145) mmol/L BUN 31 H (9-20) mg/dL Glucose 171 H (74-99) mg/dL Plasma Lactic Acid Haroon (0.7-2.0) mmol/L Phosphorus (2.5-4.5) mg/dL Albumin 3.3 L (3.5-5.0) g/dL 06/17/24 06/18/24 06/18/24 Range/Units 20:19 00:04 00:04 RBC 3.01 L (4.30-5.90) m/uL Hgb 9.4 L (13.0-17.5) gm/dL Hct 28.7 L (39.0-53.0) % RDW 17.4 H (11.5-15.5) % Neutrophils # 8.9 H (1.3-7.7) k/uL Lymphocytes # 0.2 L (1.0-4.8) k/uL INR (<1.2) APTT (22.0-30.0) sec Sodium 134 L (137-145) mmol/L BUN 30 H (9-20) mg/dL Glucose 124 H (74-99) mg/dL Plasma Lactic Acid Haroon 2.1 H* (0.7-2.0) mmol/L Phosphorus 4.8 H (2.5-4.5) mg/dL Albumin 3.3 L (3.5-5.0) g/dL 06/18/24 06/18/24 06/18/24 Range/Units 07:00 07:00 07:00 RBC 3.19 L (4.30-5.90) m/uL Hgb 9.5 L (13.0-17.5) gm/dL Hct 30.8 L (39.0-53.0) % RDW 17.4 H (11.5-15.5) % Neutrophils # 8.1 H (1.3-7.7) k/uL Lymphocytes # 0.2 L (1.0-4.8) k/uL INR (<1.2) APTT (22.0-30.0) sec Sodium (137-145) mmol/L BUN 33 H (9-20) mg/dL Glucose 149 H (74-99) mg/dL Plasma Lactic Acid Haroon 2.8 H* (0.7-2.0) mmol/L Phosphorus (2.5-4.5) mg/dL Albumin (3.5-5.0) g/dL Chest x-ray: report reviewed Assessment and Plan (1) Acute hypoxemic respiratory failure Current Visit: Yes Status: Acute Priority: High Code(s): J96.01 - ACUTE RESPIRATORY FAILURE WITH HYPOXIA SNOMED Code(s): 847268245 (2) Adenocarcinoma, lung Current Visit: Yes Status: Acute Priority: Medium Code(s): C34.90 - MALIGNANT NEOPLASM OF UNSP PART OF UNSP BRONCHUS OR LUNG SNOMED Code(s): 115699237 (3) Hypoxia Current Visit: Yes Status: Acute Priority: High Code(s): R09.02 - HYPOXEMIA SNOMED Code(s): 041210620 Plan: Acute hypoxemic respiratory failure: Patient represented to emergency room with complaints of shortness of breath and and hypoxia. Patient was discharged on 06/12/24 for the same, and was thought to have possible post radiation pneumonitis, and was discharged home on a steroid taper. Patient reports symptoms began to worsen shortly after discharge. Denies fever and chills. -On admit chest x-ray showed bilateral lung infiltrates greater on the left. -Viral panel negative -Patient was started on solumedrol 60mg q6 and bronchodilators, and placed on airvo -Pulmonology following. CTA chest ordered -Concern for acute hypoxemic failure secondary to possible post radiation pneumonitis vs developing pneumonia. Will start empiric antibiotics with azithromycin and rocephin NSCLC: -Oncology history as dictated in the HPI -S/p robotic left upper lobe wedge resection with mediastinal lymph node dissection on 11/14/2023. -Completed 4 cycles of Carboplatin/Alimta on 03/31/2024 and adjuvant radiation therapy was completed on 04/23/2024. Staging CT chest/abdomen 04/24/2024 revealed no evidence of recurrent/metastatic disease with postsurgical changes in the left lung. -Given he had no evidence of disease progression, recommended proceeding with adjuvant durvalumab monthly for 1 year per the PACIFIC trial. He has yet to start durvalumab maintenance treatment -Treatment will be on hold until acute condition is resolved -Clinic f/u with Dr. Pascual Zamora scheduled on 06/25 Dr attests: I have seen and examined pt, performed H&P, developed impression and plan of care. Discussed with dictator. Agree with documentation, dictated as a scribe
[2024-06-18] MEDS: traZODone HCL 50 MG TAB PO SCH (21:36)
[2024-06-18] MEDS: SERTRALINE 50 MG TAB PO SCH (21:36)
[2024-06-19] MEDS: PANTOPRAZOLE 40 MG TABLET PO SCH (06:12)
[2024-06-19 07:09] LABS: Anisocytosis Slight; Basophils % (A) 0 %; Eosinophils % (A) 0 %; HCT 27.1 % (39.0-53.0); HGB 8.6 gm/dL (13.0-17.5); Hypochromasia Marked; Lymphocytes # (A) 0.2 k/uL (1.0-4.8); Lymphocytes % (A) 2 %; MCH 30.3 pg (25.0-35.0); MCHC 31.7 g/dL (31.0-37.0); MCV 95.6 fL (80.0-100.0); Mean Platelet Volume 8.5; Monocytes # (A) 0.4 k/uL (0-1.0); Monocytes % (A) 4 %; Neutrophils # (A) 8.1 k/uL (1.3-7.7); Neutrophils % (A) 93 %; Platelet Count 155 k/uL (150-450); Poikilocytosis Slight; RBC 2.83 m/uL (4.30-5.90); RDW 17.2 % (11.5-15.5); WBC 8.7 k/uL (3.8-10.6)
[2024-06-19 07:21] LABS: African American GFR (CKD) >90 (>60 ml/min/1.73 sqM); Anion Gap 5 mmol/L; Blood Urea Nitrogen 26 mg/dL (9-20); Calcium 8.9 mg/dL (8.4-10.2); Carbon Dioxide 32 mmol/L (22-30); Chloride 103 mmol/L (98-107); Glucose 146 mg/dL (74-99); Non-African American GFR(CKD) 90 (>60 ml/min/1.73 sqM); Potassium 5.3 mmol/L (3.5-5.1); Sodium 140 mmol/L (137-145)
--- NOTE | 2024-06-19 12:09 | P.PN ---
Subjective Progress Note Date: 06/19/24 Hospital Course: 74-year-old male with past medical history of pulmonary adenocarcinoma status post chemotherapy and radiation, hypertension, and BPH who presents to the ED with chief complaint of shortness of breath. He was admitted on 06/07 with similar complaint of exertional dyspnea and hypoxia. Pulmonology and oncology were following the patient during his hospital stay. Patient was started on bronchodilators, Solu-Medrol, and IV antibiotics. Recent chest CT showed developing groundglass opacities and infiltrate with consolidation in the left upper lobe and left perihilar region. Patient's respiratory status improved and he was discharged home with oxygen and a nebulizer, and steroid course. Vitals on admission temperature 97.7, pulse 78 bpm, respiratory rate 20, blood pressure 96/52, O2 saturation 92% on 7 L nasal cannula which was escalated to 10 L high flow and saturation was improved to 94%. EKG as sinus rhythm with ventricular rate of 78 bpm and QTc of 422 ms. CXR shows bilateral lung infiltrates greater on the left. Recent chest CT showed developing groundglass opacities and infiltrate with consolidation in the left upper lobe and left perihilar region. Labs on admission show WBC 8.8, hemoglobin 9.3, platelets 152. PT 12.5, INR 1.2, PTT 21.6. Sodium 134, potassium 4.9, chloride 98, bicarb 27, BUN 31, creatinine 0.85, glucose 171. Lactate 2.1. NT proBNP 646. Troponin negative. Patient started on IV steroids, IV antibiotics, bronchodilators. Also on Airvo. Pulmonology and oncology following. Subjective: Patient seen and examined at bedside. No acute events overnight. Still having significant shortness of breath, more pronounced with activity. Pertinent positives and negatives as discussed above, a complete review of systems was performed and all other systems are negative. Vitals Signs Reviewed. General: Nontoxic, no distress, appears at stated age, chronically ill-appearing Derm: Warm, dry Head: Atraumatic, normocephalic, symmetric Eyes: EOMI, no lid lag, anicteric sclera Mouth: No lip lesion, mucus membranes moist Cardiovascular: S1S2 reg, no murmur Lungs: Bilateral rhonchi, more on left side, no accessory muscle use, supple mental oxygen Abdominal: Soft, nontender to palpation, no guarding, no appreciable organomegaly Ext: No gross muscle atrophy, no edema, no contractures Neuro: CN II-XI grossly intact, no focal neuro deficits Psych: Alert, oriented, appropriate affect Data Reviewed Today: Pertinent Labs: WBC 8.7, hemoglobin 8.6, potassium 5.3, creatinine 0.77 Imaging: No new imaging Assessment and Plan: Patient is severely ill, needs close monitoring. Prognosis guarded. Active: Acute on chronic hypoxic respiratory failure likely secondary to radiation pneumonitis Pulmonary adenocarcinoma Acute COPD exacerbation Possible multifocal bacterial pneumonia Lactic acidosis, likely secondary to hypoxia -Pulmonology following, on IV Solu-Medrol 60 mg every 6 hours, DuoNebs 4 times daily -Azithromycin 500 mg IV daily, ceftriaxone 1 g IV every 24 hours per oncology -Procalcitonin negative -Low suspicion for pneumonia -Sputum cultures pending -Continue wean oxygen, currently on Airvo History of hypertension -Hold amlodipine, losartan, hydrochlorothiazide as patient was slightly hypotensive initially -Okay to continue metoprolol 50 nightly Chronic normocytic anemia -Continue to monitor, no active bleeding Mild hyponatremia, resolved Mild hyperkalemia -Should improve with beta agonist inhalers -Repeat labs tomorrow Chronic: GERD BPH Depression/anxiety DVT ppx: Lovenox Code status: Full code Anticipated discharge place: Pending clinical course Anticipated discharge time: Pending clinical course Objective - Vital Signs Vital signs: Vital Signs Temp 97.6 F 06/19/24 11:11 Pulse 88 06/19/24 11:40 Resp 24 06/19/24 11:11 BP 133/71 06/19/24 11:11 Pulse Ox 90 L 06/19/24 11:25 FiO2 72 06/19/24 11:25 Intake & Output 06/18/24 06/19/24 06/19/24 18:59 06:59 18:59 Intake Total 10 Output Total 350 Balance -340 Weight 86.183 kg 83.3 kg Intake: IV 10 Invasive Line 1 10 Output: Urine 350 Other: Voiding Method Bedside Commode Bedside Commode Urinal Urinal # Voids 2 1 # Bowel Movements 1 - Labs CBC & Chem 7: 06/19/24 05:39 06/19/24 05:39 Labs: Abnormal Lab Results - Last 24 Hours (Table) 06/18/24 06/18/24 06/18/24 Range/Units 14:28 18:41 21:32 RBC (4.30-5.90) m/uL Hgb (13.0-17.5) gm/dL Hct (39.0-53.0) % RDW (11.5-15.5) % Neutrophils # (1.3-7.7) k/uL Lymphocytes # (1.0-4.8) k/uL Potassium (3.5-5.1) mmol/L Carbon Dioxide (22-30) mmol/L BUN (9-20) mg/dL Glucose (74-99) mg/dL Plasma Lactic Acid Haroon 4.1 H* 4.6 H* 2.8 H* (0.7-2.0) mmol/L 06/19/24 06/19/24 Range/Units 05:39 05:39 RBC 2.83 L (4.30-5.90) m/uL Hgb 8.6 L (13.0-17.5) gm/dL Hct 27.1 L (39.0-53.0) % RDW 17.2 H (11.5-15.5) % Neutrophils # 8.1 H (1.3-7.7) k/uL Lymphocytes # 0.2 L (1.0-4.8) k/uL Potassium 5.3 H (3.5-5.1) mmol/L Carbon Dioxide 32 H (22-30) mmol/L BUN 26 H (9-20) mg/dL Glucose 146 H (74-99) mg/dL Plasma Lactic Acid Haroon (0.7-2.0) mmol/L
--- NOTE | 2024-06-19 14:00 | P.PN ---
Subjective Progress Note Date: 06/19/24 Reporting some improvement in breathing at todays visit. Continues on Airvo. SPO2 100%. Pt afebrile Objective - Vital Signs Vital signs: Vital Signs Temp 98.1 F 06/19/24 08:52 Pulse 87 06/19/24 08:52 Resp 24 06/19/24 08:52 BP 123/69 06/19/24 08:52 Pulse Ox 90 L 06/19/24 08:52 FiO2 70 06/19/24 08:52 Intake & Output 06/18/24 06/19/24 06/19/24 18:59 06:59 18:59 Intake Total 10 Output Total 350 Balance -340 Weight 86.183 kg 83.3 kg Intake: IV 10 Invasive Line 1 10 Output: Urine 350 Other: Voiding Method Bedside Commode Bedside Commode Urinal Urinal # Voids 2 1 # Bowel Movements 1 - Constitutional General appearance: Present: average body habitus, no acute distress - EENT Eyes: Present: anicteric sclerae, EOMI ENT: Present: hearing grossly normal - Respiratory Details: breathing labored - Cardiovascular Details: skin warm and dry - Gastrointestinal General gastrointestinal: Absent: tenderness - Integumentary Integumentary: Absent: cyanotic - Musculoskeletal Musculoskeletal: Present: generalized weakness - Psychiatric Psychiatric: Present: A&O x's 3 - Labs CBC & Chem 7: 06/19/24 05:39 06/19/24 05:39 Labs: Abnormal Lab Results - Last 24 Hours (Table) 06/18/24 06/18/24 06/18/24 Range/Units 10:40 14:28 18:41 RBC (4.30-5.90) m/uL Hgb (13.0-17.5) gm/dL Hct (39.0-53.0) % RDW (11.5-15.5) % Neutrophils # (1.3-7.7) k/uL Lymphocytes # (1.0-4.8) k/uL Potassium (3.5-5.1) mmol/L Carbon Dioxide (22-30) mmol/L BUN (9-20) mg/dL Glucose (74-99) mg/dL Plasma Lactic Acid Haroon 2.3 H* 4.1 H* 4.6 H* (0.7-2.0) mmol/L 0106/19/24 06/19/24 Range/Units 21:32 05:39 05:39 RBC 2.83 L (4.30-5.90) m/uL Hgb 8.6 L (13.0-17.5) gm/dL Hct 27.1 L (39.0-53.0) % RDW 17.2 H (11.5-15.5) % Neutrophils # 8.1 H (1.3-7.7) k/uL Lymphocytes # 0.2 L (1.0-4.8) k/uL Potassium 5.3 H (3.5-5.1) mmol/L Carbon Dioxide 32 H (22-30) mmol/L BUN 26 H (9-20) mg/dL Glucose 146 H (74-99) mg/dL Plasma Lactic Acid Haroon 2.8 H* (0.7-2.0) mmol/L - Imaging and Cardiology CT scan - chest: report reviewed Assessment and Plan (1) Acute hypoxemic respiratory failure Current Visit: Yes Status: Acute Priority: High Code(s): J96.01 - ACUTE RESPIRATORY FAILURE WITH HYPOXIA SNOMED Code(s): 889543796 (2) Adenocarcinoma, lung Current Visit: Yes Status: Acute Priority: Medium Code(s): C34.90 - MALIGNANT NEOPLASM OF UNSP PART OF UNSP BRONCHUS OR LUNG SNOMED Code(s): 526839831 (3) Hypoxia Current Visit: Yes Status: Acute Priority: High Code(s): R09.02 - HYPOXEMIA SNOMED Code(s): 473625256 Plan: Acute hypoxemic respiratory failure: Patient represented to emergency room with complaints of shortness of breath and and hypoxia. Patient was discharged on 06/12/24 for the same, and was thought to have possible post radiation pneumonitis, and was discharged home on a steroid taper. Patient reports symptoms began to worsen shortly after discharge. Denies fever and chills. -On admit chest x-ray showed bilateral lung infiltrates greater on the left. -Viral panel negative -Patient was started on solumedrol 60mg q6 and bronchodilators, and placed on airvo -Pulmonology following -CTA chest negative for PE. Showing worsening right lung multifocal groundglass opacities. Post-treatment changes and possible acute infectious invovlement in the left lung, not significantly changed from previous CT -Concern for acute hypoxemic failure secondary to possible post radiation pneumonitis vs developing pneumonia. Empiric antibiotics started with azithromycin and rocephin NSCLC: -Oncology history as dictated in the HPI -S/p robotic left upper lobe wedge resection with mediastinal lymph node dissection on 11/14/2023. -Completed 4 cycles of Carboplatin/Alimta on 03/31/2024 and adjuvant radiation therapy was completed on 04/23/2024. Staging CT chest/abdomen 04/24/2024 revealed no evidence of recurrent/metastatic disease with postsurgical changes in the left lung. -Given he had no evidence of disease progression, recommended proceeding with adjuvant durvalumab monthly for 1 year per the PACIFIC trial. He has yet to start durvalumab maintenance treatment -Treatment will be on hold until acute condition is resolved -Clinic f/u with Dr. Pascual Zamora scheduled on 06/25
--- NOTE | 2024-06-19 16:53 | P.PN ---
Subjective Progress Note Date: 06/19/24 Patient is a 74-year-old male with past medical history significant for stage I II pulmonary adenocarcinoma. He is status post left upper lobectomy with mediastinal lymph node dissection done back in November,. Subsequently, started on chemotherapy and radiation therapy. His oncologist is Dr. Zamora. Last dose of chemotherapy was April,. He follows with Dr. Lancaster for radiation treatments. Last radiation treatment was May 24, 2024. Of note, patient recently admitted and discharged June 12. 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 Procalcitonin level was low. He was discharged on home oxygen and oral steroids. Patient states that his breathing never really returned to baseline. He is severely short of breath with minimal exertion such as getting up to the bathroom. His is at bedside, states his oxygen drops as low as 50%. She brought him to the emergency department for evaluation yesterday evening. He is currently being evaluated in ER, room 11. He is on 10 L high flow nasal cannula. He is awake and alert and no signs of CO2 narcosis. Nondistressed. Nontachypneic. No accessory muscle use. He states he has a p ersistent cough that is congested with minimal to no sputum production. Denies any fevers, chills, chest pain, hemoptysis. Denies any sick contacts. He has been generally weak, and lost an additional 10 pounds over the last month or so. Appetite has been poor. Most recent chest CT done on his recent admission showing diffuse bilateral groundglass opacities, and postsurgical changes in the left lung. No enlarging mediastinal or hilar adenopathy. Chest x-ray that was done last night on his readmission to the hospital continues to show bilateral lung infiltrates greater on the left, left upper portion may be slightly improved. CBC is unremarkable for leukocytosis. Hemoglobin stable at 9.4 g/dL. Platelets 158. Previous procalcitonin level 0.34 and repeat is pending. CMP: Sodium 134, potassium 4.9, chloride 98, serum bicarb 27, BUN 31, creatinine 0.5, glucose 171. Lactic 2.1. Is unremarkable. Troponin 0.012. NT proBNP not significantly elevated, 646. Current vitals: Temperature 98.5 F, heart rate 74 bpm, blood pressure 98/67 mmHg, nontachypneic, SpO2 is 94% on 10 L high flow nasal cannula. On 06/19/2024, the patient is being seen for a follow-up. The patient remains h ypoxic and the patient was placed on Airvo 60 L with an FiO2 of 65%. A follow- up CAT scan of the chest was obtained on 06/18/2024 and there is no evidence of any pulmonary embolism. Of significance is development of bilateral multifocal groundglass pulmonary opacities with organizing changes in the left lung. The groundglass opacities slightly were more prominent compared to the earlier CAT scan especially on the right. Left lung findings are essentially stable. There is also mild to moderate central left-sided bronchiectatic changes. The patient remains afebrile. White cell count is 8.7. Hemoglobin is 8.6. Sodium is at 140 with a potassium level of 5.3. Bicarb level is 32. Lactic acid level is at 1.9. Procalcitonin level was at 0.44. He is able to communicate. His breathing is labored and he desaturates with minimal work of activity. The patient remains on IV Solu-Medrol 60 mg every 6 hours. He was placed also empirically on a combination of Rocephin and Zithromax. Objective - Vital Signs Vital signs: Vital Signs Temp 98.1 F 06/19/24 08:52 Pulse 87 06/19/24 08:52 Resp 24 06/19/24 08:52 BP 123/69 06/19/24 08:52 Pulse Ox 90 L 06/19/24 08:52 FiO2 70 06/19/24 08:52 Intake & Output 06/18/24 06/19/24 06/19/24 18:59 06:59 18:59 Intake Total 10 Output Total 350 Balance -340 Weight 86.183 kg 83.3 kg Intake: IV 10 Invasive Line 1 10 Output: Urine 350 Other: Voiding Method Bedside Commode Bedside Commode Urinal Urinal # Voids 2 1 # Bowel Movements 1 - Exam GENERAL EXAM: Alert, 74-year-old well-nourished male, on Airvo at 60 L with an FiO2 of 65% HEAD: Normocephalic and atraumatic EYES: Normal reaction of pupils, equal size. NOSE: Clear with pink turbinates. THROAT: No erythema or exudates. No white plaques or thrush. NECK: No masses, no JVD. CHEST: No chest wall deformity. Previous thoracotomy scar well-approximated LUNGS: Equal air entry with posterior lower right lung with inspiratory crackles, left lower lung diminished to auscultation, anterior expiratory wheezes noted bilaterally. On 10 L high flow nasal cannula, no accessory muscle use or conversational dyspnea or noted respiratory distress.. CVS: S1 and S2 normal with no audible murmur, regular rhythm. No extra heart sounds ABDOMEN: No hepatosplenomegaly, active bowel sounds, no guarding or rigidity. SPINE: No scoliosis or deformity SKIN: No rashes CENTRAL NERVOUS SYSTEM: No focal deficits, tone is normal in all 4 extremities. EXTREMITIES: There is no peripheral edema, clubbing, or cyanosis. Peripheral pulses are intact. - Labs CBC & Chem 7: 06/19/24 05:39 06/19/24 05:39 Labs: Abnormal Lab Results - Last 24 Hours (Table) 06/18/24 06/18/24 06/18/24 Range/Units 10:40 14:28 18:41 RBC (4.30-5.90) m/uL Hgb (13.0-17.5) gm/dL Hct (39.0-53.0) % RDW (11.5-15.5) % Neutrophils # (1.3-7.7) k/uL Lymphocytes # (1.0-4.8) k/uL Potassium (3.5-5.1) mmol/L Carbon Dioxide (22-30) mmol/L BUN (9-20) mg/dL Glucose (74-99) mg/dL Plasma Lactic Acid Haroon 2.3 H* 4.1 H* 4.6 H* (0.7-2.0) mmol/L 06/18/24 06/19/24 06/19/24 Range/Units 21:32 05:39 05:39 RBC 2.83 L (4.30-5.90) m/uL Hgb 8.6 L (13.0-17.5) gm/dL Hct 27.1 L (39.0-53.0) % RDW 17.2 H (11.5-15.5) % Neutrophils # 8.1 H (1.3-7.7) k/uL Lymphocytes # 0.2 L (1.0-4.8) k/uL Potassium 5.3 H (3.5-5.1) mmol/L Carbon Dioxide 32 H (22-30) mmol/L BUN 26 H (9-20) mg/dL Glucose 146 H (74-99) mg/dL Plasma Lactic Acid Haroon 2.8 H* (0.7-2.0) mmol/L Assessment and Plan Assessment: Acute hypoxemic respiratory failure, with interval worsening in oxygenation and the patient is currently on Airvo 60 L with an FiO2 of 65%.. CT scan of the chest performed 06/10/2024 revealed groundglass opacities and infiltrate with consolidation in the left upper lobe and right perihilar region. Procalcitonin level previously low. Repeat chest x-ray done on this readmission showing similar diffuse bilateral lung infiltrates/opacities with possible slight improvement in the left upper lung. Repeat CAT scan of the chest on 06/18/2024 shows worsening in groundglass pulmonary filtrates specially on the right. Left sided findings are essentially unchanged. Meanwhile, the patient's oxygenation has gotten worse. Suspect acute lung injury versus radiation pneumonitis. Infections are felt to be less likely. Acute COPD exacerbation Acute dyspnea, secondary to above ulmonary adenocarcinoma and the patient is status post left upper lobectomy on 11/14/2023 with a complicated postoperative course. Postop staging was 38 with T2 N2 disease. The next generation genetic sequencing showed no evidence of any targetable mutations. Based on that, the patient received a total of 4 cycles of systemic chemotherapy using carboplatinum and Alimta which she completed on 03/31/2024. He also received adjuvant radiation therapy that he completed on 04/23/2024. Staging CAT scan of the chest and abdomen done on 04/24/2024 showed no evidence of any metastatic disease and that showed essentially postsurgical changes. Based on those findings, it was decided to continue ongoing treatment with durvalumab for a total of 1 year. History of vocal cord paralysis Anemia, hemoglobin stable Hypertension Obstructive sleep apnea, uses nasal CPAP at home Former smoker History of anxiety Plan: Keep the patient on Airvo 60 L with an FiO2 of 60%. Gradual wean down FiO2 as tolerated. Continue supplemental oxygen maintain oxygen saturation of 92% or greater Continue IV Solu-Medrol 60 mg every 6 hours Continue bronchodilators Repeat procalcitonin level not elevated and the patient is on empiric antibiotic coverage with a combination of Rocephin and Zithromax Check viral screen was negative We will continue monitoring his condition closely. Obtain a follow-up chest x- ray of the neck 24 to 48 hours. Case was discussed with the at the bedside.
[2024-06-19] MEDS: METOPROLOL SUCCINATE (ER) 50 MG TAB.ER.24H PO SCH (20:41)
[2024-06-20] MEDS: ALPRAZolam 0.5 MG TAB PO PRN (03:32)
[2024-06-20 07:08] LABS: Anisocytosis Slight; Basophils % (A) 0 %; Eosinophils % (A) 0 %; HGB 8.8 gm/dL (13.0-17.5); Hypochromasia Marked; Lymphocytes # (A) 0.1 k/uL (1.0-4.8); Lymphocytes % (A) 1 %; MCH 30.2 pg (25.0-35.0); MCHC 31.5 g/dL (31.0-37.0); MCV 95.9 fL (80.0-100.0); Mean Platelet Volume 8.3; Monocytes # (A) 0.5 k/uL (0-1.0); Monocytes % (A) 5 %; Neutrophils # (A) 8.9 k/uL (1.3-7.7); Neutrophils % (A) 93 %; Platelet Count 156 k/uL (150-450); RBC 2.92 m/uL (4.30-5.90); RDW 17.3 % (11.5-15.5); WBC 9.6 k/uL (3.8-10.6)
[2024-06-20 07:16] LABS: African American GFR (CKD) >90 (>60 ml/min/1.73 sqM); Anion Gap 6 mmol/L; Blood Urea Nitrogen 29 mg/dL (9-20); Carbon Dioxide 30 mmol/L (22-30); Chloride 102 mmol/L (98-107); Glucose 120 mg/dL (74-99); Non-African American GFR(CKD) >90 (>60 ml/min/1.73 sqM); Potassium 4.9 mmol/L (3.5-5.1); Sodium 138 mmol/L (137-145)
--- NOTE | 2024-06-20 08:34 | XR ---
EXAMINATION TYPE: XR chest 1V DATE OF EXAM: 06/20/2024 6:59 AM COMPARISON: Chest CT 2 days earlier. Chest x-ray 3 days earlier. CLINICAL INDICATION: Male, 74 years old with history of Radiation pneumonitis, TECHNIQUE: Single frontal view of the chest is obtained. FINDINGS: Persistent multifocal opacities in the right lung and more diffuse opacities in the left papi ng with left-sided volume loss and silhouetting of the left heart border and portions of left hemidia phragm. The osseous structures remain demineralized. IMPRESSION: Stable multifocal right lung acute infiltrates and/or edema and more prominent diffuse le ft lung opacities and consolidation with left-sided volume loss on background chronic emphysematous c hange. Cannot exclude acute on chronic process. [facility], , 06/20/2024 8:32 AM
--- NOTE | 2024-06-20 13:23 | P.PN ---
Subjective Progress Note Date: 06/20/24 Pt reports improvement in dyspnea and appetite. Having stools. Still requiring Airvo. Gen: In NAD, non-toxic HEENT: normocephalic, atraumatic, hearing acuity is intant, mucous membranes moist CVS: perfusing all extremities well, no pitting edema, Respiratory: symmetric chest expansion, no accessory muscle use, GI: soft, NTTP, ND, : no suprapubic tenderness, no CVA tenderness MSK/Derm: no rashes, cyanosis Neuro: CN II-XII intact, no motor weakness, Psych: cooperative, euthymic mood, judgment and insight is intact Hospital course: Hospital Course: 74-year-old male with past medical history of pulmonary adenocarcinoma status post chemotherapy and radiation, hypertension, and BPH who presents to the ED with chief complaint of shortness of breath. He was admitted on 06/07 with similar complaint of exertional dyspnea and hypoxia. Pulmonology and oncology were following the patient during his hospital stay. Patient was started on bronchodilators, Solu-Medrol, and IV antibiotics. Recent chest CT showed developing groundglass opacities and infiltrate with consolidation in the left u pper lobe and left perihilar region. Patient's respiratory status improved and he was discharged home with oxygen and a nebulizer, and steroid course. Vitals on admission temperature 97.7, pulse 78 bpm, respiratory rate 20, blood pressure 96/52, O2 saturation 92% on 7 L nasal cannula which was escalated to 10 L high flow and saturation was improved to 94%. EKG as sinus rhythm with ventricular rate of 78 bpm and QTc of 422 ms. CXR shows bilateral lung infiltrates greater on the left. Recent chest CT showed developing groundglass opacities and infiltrate with consolidation in the left upper lobe and left perihilar region. Labs on admission show WBC 8.8, hemoglobin 9.3, platelets 152. PT 12.5, INR 1.2, PTT 21.6. Sodium 134, potassium 4.9, chloride 98, bicarb 27, BUN 31, creatinine 0.85, glucose 171. Lactate 2.1. NT proBNP 646. Troponin negative. Patient started on IV steroids, IV antibiotics, bronchodilators. Also on Airvo. Pulmonology and oncology following. Assessment and Plan: Patient is severely ill, needs close monitoring. Prognosis guarded. Active: Acute on chronic hypoxic respiratory failure likely secondary to radiation pneumonitis Pulmonary adenocarcinoma Acute COPD exacerbation Possible multifocal bacterial pneumonia Lactic acidosis, likely secondary to hypoxia -Pulmonology following, on IV Solu-Medrol 60 mg every 6 hours, DuoNebs 4 times daily -Azithromycin 500 mg IV daily, ceftriaxone 1 g IV every 24 hours per oncology -Procalcitonin negative -Low suspicion for pneumonia -Sputum cultures pending -Continue wean oxygen, currently on Airvo History of hypertension -Hold amlodipine, losartan, hydrochlorothiazide as patient was slightly hypotensive initially -Okay to continue metoprolol 50 nightly Chronic normocytic anemia -Continue to monitor, no active bleeding Mild hyponatremia, resolved Mild hyperkalemia -Should improve with beta agonist inhalers -Repeat labs tomorrow Chronic: GERD BPH Depression/anxiety DVT ppx: Lovenox Code status: Full code Anticipated discharge place: Pending clinical course Anticipated discharge time: Pending clinical course Objective - Vital Signs Vital signs: Vital Signs Temp 97.9 F 06/20/24 03:35 Pulse 71 06/20/24 12:00 Resp 16 06/20/24 12:00 BP 125/72 06/20/24 12:00 Pulse Ox 100 06/20/24 12:00 FiO2 85 06/20/24 12:00 Intake & Output 06/19/24 06/20/24 06/20/24 18:59 06:59 18:59 Output Total 0 400 Balance 0 -400 Output: Urine 0 400 Other: Voiding Method Bedside Commode Bedside Commode Bedside Commode Urinal Urinal Urinal # Voids 2 # Bowel Movements 1 - Labs CBC & Chem 7: 06/20/24 06:11 06/20/24 06:11 Labs: Abnormal Lab Results - Last 24 Hours (Table) 06/20/24 06/20/24 Range/Units 06:11 06:11 RBC 2.92 L (4.30-5.90) m/uL Hgb 8.8 L (13.0-17.5) gm/dL Hct 28.0 L (39.0-53.0) % RDW 17.3 H (11.5-15.5) % Neutrophils # 8.9 H (1.3-7.7) k/uL Lymphocytes # 0.1 L (1.0-4.8) k/uL BUN 29 H (9-20) mg/dL Glucose 120 H (74-99) mg/dL Microbiology - Last 24 Hours (Table) 06/19/24 07:51 Sputum Culture - Final Sputum
--- NOTE | 2024-06-20 14:45 | CDI ---
Documentation Clarification Form Date: 06/20/2024 02:07:00 PM From: Rhea Aguiar Phone: [phone] Admit Date: 06/17/2024 09:49:00 PM Patient Name: Arnaud Trevino Visit Number: [id number] Discharge Date: ATTENTION: The Clinical Documentation Specialists (CDI) and [facility] Coding Staff appreciate your assistance in clarifying documentation. Please respond to the clarification below the line at the bottom and electronically sign. The CDI & [facility] Coding staff will review the response and follow-up if needed. Please note: Queries are made part of the Legal Health Record. If you have any questions, please contact the author of this message via ITS. DoctorLowell Odonnell Conflicting documentation has been found in the medical record. As attending physician, please provide clarification. 06/18 and subsequent documentation: Possible multifocal bacterial pneumonia 06/18 and subsequent documentation: Low suspicion for pneumonia History/Risk Factors: Chest Pain / Angina, Hypertension, Prostate, Former smoker Clinical Indicators: 74-year-old male to the ER for evaluation regards to severe dyspnea shortness of breath with severe hypoxia. VS 96/52 78 20 97.7 92% 7L N/C WBC 8.8 HGB 9.3, NA+ 134, Procalcitonin 0.44 06/19 pulmonary progress note: suspect acute lung injury versus radiation pneumonitis. Infections are felt to be less likely. Acute COPD exacerbation. 06/17 CXR: Bilateral lung infiltrates greater on the left. The left upper portion may be improving from comparison. Treatment: IV Solu-Medrol 60 MG Q 6 HRS (titrate per orders) DuoNeb's Q4 X daily Azithromycin 500 MG IV Daily Ceftriaxone 2 GM IV Q 24 Hrs. Please clarify which diagnosis is most appropriate: [ x ] Possible multifocal bacterial pneumonia) specify type if known) [ ] Pneumonia ruled out [ ] Other (please specify) [ ] Unable to determine (Template Last Revised: August 2020) MTDD
--- NOTE | 2024-06-20 15:06 | P.PN ---
Subjective Progress Note Date: 06/20/24 Patient is a 74-year-old male with past medical history significant for stage I II pulmonary adenocarcinoma. He is status post left upper lobectomy with mediastinal lymph node dissection done back in November,. Subsequently, started on chemotherapy and radiation therapy. His oncologist is Dr. Zamora. Last dose of chemotherapy was April,. He follows with Dr. Lancaster for radiation treatments. Last radiation treatment was May 24, 2024. Of note, patient recently admitted and discharged June 12. 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 Procalcitonin level was low. He was discharged on home oxygen and oral steroids. Patient states that his breathing never really returned to baseline. He is severely short of breath with minimal exertion such as getting up to the bathroom. His is at bedside, states his oxygen drops as low as 50%. She brought him to the emergency department for evaluation yesterday evening. He is currently being evaluated in ER, room 11. He is on 10 L high flow nasal cannula. He is awake and alert and no signs of CO2 narcosis. Nondistressed. Nontachypneic. No accessory muscle use. He states he has a p ersistent cough that is congested with minimal to no sputum production. Denies any fevers, chills, chest pain, hemoptysis. Denies any sick contacts. He has been generally weak, and lost an additional 10 pounds over the last month or so. Appetite has been poor. Most recent chest CT done on his recent admission showing diffuse bilateral groundglass opacities, and postsurgical changes in the left lung. No enlarging mediastinal or hilar adenopathy. Chest x-ray that was done last night on his readmission to the hospital continues to show bilateral lung infiltrates greater on the left, left upper portion may be slightly improved. CBC is unremarkable for leukocytosis. Hemoglobin stable at 9.4 g/dL. Platelets 158. Previous procalcitonin level 0.34 and repeat is pending. CMP: Sodium 134, potassium 4.9, chloride 98, serum bicarb 27, BUN 31, creatinine 0.5, glucose 171. Lactic 2.1. Is unremarkable. Troponin 0.012. NT proBNP not significantly elevated, 646. Current vitals: Temperature 98.5 F, heart rate 74 bpm, blood pressure 98/67 mmHg, nontachypneic, SpO2 is 94% on 10 L high flow nasal cannula. On 06/19/2024, the patient is being seen for a follow-up. The patient remains h ypoxic and the patient was placed on Airvo 60 L with an FiO2 of 65%. A follow- up CAT scan of the chest was obtained on 06/18/2024 and there is no evidence of any pulmonary embolism. Of significance is development of bilateral multifocal groundglass pulmonary opacities with organizing changes in the left lung. The groundglass opacities slightly were more prominent compared to the earlier CAT scan especially on the right. Left lung findings are essentially stable. There is also mild to moderate central left-sided bronchiectatic changes. The patient remains afebrile. White cell count is 8.7. Hemoglobin is 8.6. Sodium is at 140 with a potassium level of 5.3. Bicarb level is 32. Lactic acid level is at 1.9. Procalcitonin level was at 0.44. He is able to communicate. His breathing is labored and he desaturates with minimal work of activity. The patient remains on IV Solu-Medrol 60 mg every 6 hours. He was placed also empirically on a combination of Rocephin and Zithromax. On 06/20/2024, the patient is being seen for a follow-up. Remains hypoxic and this morning the patient is on Airvo at 60 L with an FiO2 of 90%. Current pulse ox in the order of 94%. A follow-up chest x-ray was also done and shows stable multifocal right lung infiltrate and ongoing dense infiltration in the left perihilar and left upper lobe along with some volume loss in the left lung. He is able to sit up in a chair. He continues to have chronic hoarseness. Denies having any interval worsening shortness of breath. Using incentive spirometer. White cell count is 9.6 with a hemoglobin 8.8 and a platelet count of 156. BUN is 29 with a creatinine of 0.7 and sodium levels at 137. Calcium level is not elevated at 9.0. Remains on Rocephin. Remains on IV Solu-Medrol. Remains on DuoNeb nebulized treatments [id number]. Rest of the medications are essentially unchanged. Objective - Vital Signs Vital signs: Vital Signs Temp 97.9 F 06/20/24 03:35 Pulse 70 06/20/24 09:04 Resp 16 06/20/24 08:00 BP 113/67 06/20/24 08:00 Pulse Ox 95 06/20/24 08:00 FiO2 70 06/20/24 08:49 Intake & Output 06/19/24 06/20/24 06/20/24 18:59 06:59 18:59 Output Total 0 Balance 0 Output: Urine 0 Other: Voiding Method Bedside Commode Bedside Commode Urinal Urinal # Voids 2 # Bowel Movements 1 - Exam GENERAL EXAM: Alert, 74-year-old well-nourished male, on Airvo at 60 L with an FiO2 of 90% HEAD: Normocephalic and atraumatic EYES: Normal reaction of pupils, equal size. NOSE: Clear with pink turbinates. THROAT: No erythema or exudates. No white plaques or thrush. NECK: No masses, no JVD. CHEST: No chest wall deformity. Previous thoracotomy scar well-approximated LUNGS: Equal air entry with posterior lower right lung with inspiratory crackles, left lower lung diminished to auscultation, anterior expiratory wheezes noted bilaterally. On 10 L high flow nasal cannula, no accessory muscle use or conversational dyspnea or noted respiratory distress.. CVS: S1 and S2 normal with no audible murmur, regular rhythm. No extra heart sounds ABDOMEN: No hepatosplenomegaly, active bowel sounds, no guarding or rigidity. SPINE: No scoliosis or deformity SKIN: No rashes CENTRAL NERVOUS SYSTEM: No focal deficits, tone is normal in all 4 extremities. EXTREMITIES: There is no peripheral edema, clubbing, or cyanosis. Peripheral pulses are intact. - Labs CBC & Chem 7: 06/20/24 06:11 06/20/24 06:11 Labs: Abnormal Lab Results - Last 24 Hours (Table) 06/20/24 06/20/24 Range/Units 06:11 06:11 RBC 2.92 L (4.30-5.90) m/uL Hgb 8.8 L (13.0-17.5) gm/dL Hct 28.0 L (39.0-53.0) % RDW 17.3 H (11.5-15.5) % Neutrophils # 8.9 H (1.3-7.7) k/uL Lymphocytes # 0.1 L (1.0-4.8) k/uL BUN 29 H (9-20) mg/dL Glucose 120 H (74-99) mg/dL Microbiology - Last 24 Hours (Table) 06/19/24 07:51 Sputum Culture - Final Sputum Assessment and Plan Assessment: Acute hypoxemic respiratory failure. CT scan of the chest performed 06/10/2024 revealed groundglass opacities and infiltrate with consolidation in the left upper lobe and right perihilar region. Procalcitonin level previously low. Repeat chest x-ray done on this readmission showing similar diffuse bilateral lung infiltrates/opacities with possible slight improvement in the left upper lung. Repeat CAT scan of the chest on 06/18/2024 shows worsening in groundglass pulmonary filtrates specially on the right. Left sided findings are essentially unchanged. Meanwhile, the patient's oxygenation has gotten worse. The patient is currently on Airvo 60 L and FiO2 of 90%. Chest x-ray from 06/20/2024 shows stable bilateral pulmonary infiltrates are discussed. Suspect acute lung injury versus radiation pneumonitis. Infections are felt to be less likely. Acute COPD exacerbation Acute dyspnea, secondary to above, currently stable Pulmonary adenocarcinoma and the patient is status post left upper lobectomy on 11/14/2023 with a complicated postoperative course. Postop staging was 38 with T2 N2 disease. The next generation genetic sequencing showed no evidence of any targetable mutations. Based on that, the patient received a total of 4 cycles of systemic chemotherapy using carboplatinum and Alimta which she completed on 03/31/2024. He also received adjuvant radiation therapy that he completed on 04/23/2024. Staging CAT scan of the chest and abdomen done on 04/24/2024 showed no evidence of any metastatic disease and that showed essentially postsurgical changes. Based on those findings, it was decided to continue ongoing treatment with durvalumab for a total of 1 year. History of vocal cord paralysis Anemia, hemoglobin stable Hypertension Obstructive sleep apnea, uses nasal CPAP at home Former smoker History of anxiety Plan: Keep the patient on Airvo 60 L with an FiO2 of 90 %. Gradual wean down FiO2 as tolerated. Continue supplemental oxygen maintain oxygen saturation of 92% or greater Chest x-ray findings are stable Clinically stable without any interval worsening shortness of breath or oxygenation Continue IV Solu-Medrol 60 mg every 6 hours Continue bronchodilators Continue IV Rocephin, empiric antibiotic coverage Procalcitonin level is at 0.44 Check viral screen was negative We will continue monitoring his condition closely. O Poor prognosis based on above-mentioned comorbidities.
--- NOTE | 2024-06-20 15:37 | P.PN ---
Subjective Progress Note Date: 06/20/24 Reporting some improvement in breathing at todays visit. Continues on Airvo. SPO2 95%. Pt afebrile Objective - Vital Signs Vital signs: Vital Signs Temp 97.9 F 06/20/24 03:35 Pulse 71 06/20/24 12:00 Resp 16 06/20/24 12:00 BP 125/72 06/20/24 12:00 Pulse Ox 100 06/20/24 12:00 FiO2 85 06/20/24 12:00 Intake & Output 06/19/24 06/20/24 06/20/24 18:59 06:59 18:59 Output Total 0 400 Balance 0 -400 Output: Urine 0 400 Other: Voiding Method Bedside Commode Bedside Commode Bedside Commode Urinal Urinal Urinal # Voids 2 # Bowel Movements 1 - Constitutional General appearance: Present: no acute distress - EENT Eyes: Present: anicteric sclerae, EOMI ENT: Present: hearing grossly normal - Respiratory Details: breathing labored - Cardiovascular Details: skin warm and dry - Integumentary Integumentary: Absent: cyanotic - Musculoskeletal Musculoskeletal: Present: generalized weakness - Psychiatric Psychiatric: Present: A&O x's 3 - Labs CBC & Chem 7: 06/20/24 06:11 06/20/24 06:11 Labs: Abnormal Lab Results - Last 24 Hours (Table) 06/20/24 06/20/24 Range/Units 06:11 06:11 RBC 2.92 L (4.30-5.90) m/uL Hgb 8.8 L (13.0-17.5) gm/dL Hct 28.0 L (39.0-53.0) % RDW 17.3 H (11.5-15.5) % Neutrophils # 8.9 H (1.3-7.7) k/uL Lymphocytes # 0.1 L (1.0-4.8) k/uL BUN 29 H (9-20) mg/dL Glucose 120 H (74-99) mg/dL Microbiology - Last 24 Hours (Table) 06/19/24 07:51 Sputum Culture - Final Sputum Assessment and Plan (1) Acute hypoxemic respiratory failure Current Visit: Yes Status: Acute Priority: High Code(s): J96.01 - ACUTE RESPIRATORY FAILURE WITH HYPOXIA SNOMED Code(s): 257938933 (2) Adenocarcinoma, lung Current Visit: Yes Status: Acute Priority: Medium Code(s): C34.90 - MALIGNANT NEOPLASM OF UNSP PART OF UNSP BRONCHUS OR LUNG SNOMED Code(s): 955870067 (3) Hypoxia Current Visit: Yes Status: Acute Priority: High Code(s): R09.02 - HYPOXEMIA SNOMED Code(s): 989176039 Plan: Acute hypoxemic respiratory failure: Patient represented to emergency room with complaints of shortness of breath and and hypoxia. Patient was discharged on 06/12/24 for the same, and was thought to have possible post radiation pneumonitis, and was discharged home on a steroid taper. Patient reports symptoms began to worsen shortly after discharge. Denies fever and chills. -On admit chest x-ray showed bilateral lung infiltrates greater on the left. -Viral panel negative -Patient was started on solumedrol 60mg q6 and bronchodilators, and placed on airvo -Pulmonology following -CTA chest negative for PE. Showing worsening right lung multifocal groundglass opacities. Post-treatment changes and possible acute infectious invovlement in the left lung, not significantly changed from previous CT -Concern for acute hypoxemic failure secondary to possible post radiation pneumonitis vs developing pneumonia. Empiric antibiotics started with azithromycin and rocephin NSCLC: -Oncology history as dictated in the HPI -S/p robotic left upper lobe wedge resection with mediastinal lymph node dissection on 11/14/2023. -Completed 4 cycles of Carboplatin/Alimta on 03/31/2024 and adjuvant radiation therapy was completed on 04/23/2024. Staging CT chest/abdomen 04/24/2024 revealed no evidence of recurrent/metastatic disease with postsurgical changes in the left lung. -Given he had no evidence of disease progression, recommended proceeding with adjuvant durvalumab monthly for 1 year per the PACIFIC trial. He has yet to start durvalumab maintenance treatment -Treatment will be on hold until acute condition is resolved -Clinic f/u with Dr. Pascual Zamora scheduled on 06/25
[2024-06-21 08:10] LABS: Anisocytosis Slight; Basophils % (A) 0 %; Eosinophils % (A) 0 %; HCT 29.9 % (39.0-53.0); HGB 9.4 gm/dL (13.0-17.5); Hypochromasia Marked; Lymphocytes # (A) 0.3 k/uL (1.0-4.8); Lymphocytes % (A) 2 %; MCH 30.2 pg (25.0-35.0); MCHC 31.5 g/dL (31.0-37.0); MCV 95.8 fL (80.0-100.0); Mean Platelet Volume 8.8; Monocytes # (A) 0.8 k/uL (0-1.0); Monocytes % (A) 5 %; Neutrophils # (A) 15.7 k/uL (1.3-7.7); Neutrophils % (A) 93 %; Platelet Count 179 k/uL (150-450); RBC 3.12 m/uL (4.30-5.90); RDW 17.3 % (11.5-15.5); WBC 16.8 k/uL (3.8-10.6)
[2024-06-21 08:41] LABS: African American GFR (CKD) >90 (>60 ml/min/1.73 sqM); Anion Gap 9 mmol/L; Blood Urea Nitrogen 26 mg/dL (9-20); Calcium 9.1 mg/dL (8.4-10.2); Carbon Dioxide 29 mmol/L (22-30); Chloride 103 mmol/L (98-107); Glucose 182 mg/dL (74-99); Magnesium 2.4 mg/dL (1.6-2.3); Non-African American GFR(CKD) >90 (>60 ml/min/1.73 sqM); Potassium 4.8 mmol/L (3.5-5.1); Sodium 141 mmol/L (137-145)
[2024-06-21] MEDS: traMADol 50 MG TAB PO PRN (12:15)
--- NOTE | 2024-06-21 12:16 | P.PN ---
Subjective Progress Note Date: 06/21/24 Patient is a 74-year-old male with past medical history significant for stage I II pulmonary adenocarcinoma. He is status post left upper lobectomy with mediastinal lymph node dissection done back in November,. Subsequently, started on chemotherapy and radiation therapy. His oncologist is Dr. Zamora. Last dose of chemotherapy was April,. He follows with Dr. Lancaster for radiation treatments. Last radiation treatment was May 24, 2024. Of note, patient recently admitted and discharged June 12. 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 Procalcitonin level was low. He was discharged on home oxygen and oral steroids. Patient states that his breathing never really returned to baseline. He is severely short of breath with minimal exertion such as getting up to the bathroom. His is at bedside, states his oxygen drops as low as 50%. She brought him to the emergency department for evaluation yesterday evening. He is currently being evaluated in ER, room 11. He is on 10 L high flow nasal cannula. He is awake and alert and no signs of CO2 narcosis. Nondistressed. Nontachypneic. No accessory muscle use. He states he has a p ersistent cough that is congested with minimal to no sputum production. Denies any fevers, chills, chest pain, hemoptysis. Denies any sick contacts. He has been generally weak, and lost an additional 10 pounds over the last month or so. Appetite has been poor. Most recent chest CT done on his recent admission showing diffuse bilateral groundglass opacities, and postsurgical changes in the left lung. No enlarging mediastinal or hilar adenopathy. Chest x-ray that was done last night on his readmission to the hospital continues to show bilateral lung infiltrates greater on the left, left upper portion may be slightly improved. CBC is unremarkable for leukocytosis. Hemoglobin stable at 9.4 g/dL. Platelets 158. Previous procalcitonin level 0.34 and repeat is pending. CMP: Sodium 134, potassium 4.9, chloride 98, serum bicarb 27, BUN 31, creatinine 0.5, glucose 171. Lactic 2.1. Is unremarkable. Troponin 0.012. NT proBNP not significantly elevated, 646. Current vitals: Temperature 98.5 F, heart rate 74 bpm, blood pressure 98/67 mmHg, nontachypneic, SpO2 is 94% on 10 L high flow nasal cannula. On 06/19/2024, the patient is being seen for a follow-up. The patient remains h ypoxic and the patient was placed on Airvo 60 L with an FiO2 of 65%. A follow- up CAT scan of the chest was obtained on 06/18/2024 and there is no evidence of any pulmonary embolism. Of significance is development of bilateral multifocal groundglass pulmonary opacities with organizing changes in the left lung. The groundglass opacities slightly were more prominent compared to the earlier CAT scan especially on the right. Left lung findings are essentially stable. There is also mild to moderate central left-sided bronchiectatic changes. The patient remains afebrile. White cell count is 8.7. Hemoglobin is 8.6. Sodium is at 140 with a potassium level of 5.3. Bicarb level is 32. Lactic acid level is at 1.9. Procalcitonin level was at 0.44. He is able to communicate. His breathing is labored and he desaturates with minimal work of activity. The patient remains on IV Solu-Medrol 60 mg every 6 hours. He was placed also empirically on a combination of Rocephin and Zithromax. On 06/20/2024, the patient is being seen for a follow-up. Remains hypoxic and this morning the patient is on Airvo at 60 L with an FiO2 of 90%. Current pulse ox in the order of 94%. A follow-up chest x-ray was also done and shows stable multifocal right lung infiltrate and ongoing dense infiltration in the left perihilar and left upper lobe along with some volume loss in the left lung. He is able to sit up in a chair. He continues to have chronic hoarseness. Denies having any interval worsening shortness of breath. Using incentive spirometer. White cell count is 9.6 with a hemoglobin 8.8 and a platelet count of 156. BUN is 29 with a creatinine of 0.7 and sodium levels at 137. Calcium level is not elevated at 9.0. Remains on Rocephin. Remains on IV Solu-Medrol. Remains on DuoNeb nebulized treatments [id number]. Rest of the medications are essentially unchanged. On 06/21/2024, the patient remains on Airvo and overall respiratory status and oxygenation has been unchanged. The patient remains on Airvo 60 L with an FiO2 of 90%. White cell count 16.8 with a hemoglobin of of 9.4 and a platelet count of 179. BUN 26 with a creatinine of 0.6. Voice remains hoarse as the patient is known to have chronic paralysis of the vocal cord. Remains on IV Solu-Medrol 60 mg per 6 hours. Remains on IV Rocephin. No new complaints otherwise for now. Objective - Vital Signs Vital signs: Vital Signs Temp 98.1 F 06/21/24 04:00 Pulse 70 06/21/24 08:26 Resp 26 H 06/21/24 04:00 BP 139/81 06/21/24 04:00 Pulse Ox 98 06/21/24 04:30 FiO2 90 06/21/24 08:16 Intake & Output 06/20/24 06/21/24 06/21/24 18:59 06:59 18:59 Output Total 400 300 Balance -400 -300 Weight 83.4 kg Output: Urine 400 300 Other: Voiding Method Bedside Commode Bedside Commode Urinal Urinal # Bowel Movements 0 - Exam GENERAL EXAM: Alert, 74-year-old well-nourished male, on Airvo at 60 L with an FiO2 of 90% HEAD: Normocephalic and atraumatic EYES: Normal reaction of pupils, equal size. NOSE: Clear with pink turbinates. THROAT: No erythema or exudates. No white plaques or thrush. NECK: No masses, no JVD. CHEST: No chest wall deformity. Previous thoracotomy scar well-approximated LUNGS: Equal air entry with posterior lower right lung with inspiratory crackles, left lower lung diminished to auscultation, anterior expiratory wheezes noted bilaterally. On 10 L high flow nasal cannula, no accessory muscle use or conversational dyspnea or noted respiratory distress.. CVS: S1 and S2 normal with no audible murmur, regular rhythm. No extra heart sounds ABDOMEN: No hepatosplenomegaly, active bowel sounds, no guarding or rigidity. SPINE: No scoliosis or deformity SKIN: No rashes CENTRAL NERVOUS SYSTEM: No focal deficits, tone is normal in all 4 extremities. EXTREMITIES: There is no peripheral edema, clubbing, or cyanosis. Peripheral pulses are intact. - Labs CBC & Chem 7: 06/21/24 07:53 06/21/24 07:53 Labs: Abnormal Lab Results - Last 24 Hours (Table) 06/21/24 06/21/24 Range/Units 07:53 07:53 WBC 16.8 H (3.8-10.6) k/uL RBC 3.12 L (4.30-5.90) m/uL Hgb 9.4 L (13.0-17.5) gm/dL Hct 29.9 L (39.0-53.0) % RDW 17.3 H (11.5-15.5) % Neutrophils # 15.7 H (1.3-7.7) k/uL Lymphocytes # 0.3 L (1.0-4.8) k/uL BUN 26 H (9-20) mg/dL Glucose 182 H (74-99) mg/dL Magnesium 2.4 H (1.6-2.3) mg/dL Microbiology - Last 24 Hours (Table) 06/19/24 07:51 Sputum Culture - Final Sputum Assessment and Plan Assessment: Acute hypoxemic respiratory failure. CT scan of the chest performed 06/10/2024 revealed groundglass opacities and infiltrate with consolidation in the left upper lobe and right perihilar region. Procalcitonin level previously low. Repeat chest x-ray done on this readmission showing similar diffuse bilateral lung infiltrates/opacities with possible slight improvement in the left upper lung. Repeat CAT scan of the chest on 06/18/2024 shows worsening in groundglass pulmonary filtrates specially on the right. Left sided findings are essentially unchanged. Meanwhile, the patient's oxygenation has gotten worse. The patient is currently on Airvo 60 L and FiO2 of 90%. Chest x-ray from 06/20/2024 shows stable bilateral pulmonary infiltrates are discussed. Suspect acute lung injury versus radiation pneumonitis. Infections are felt to be less likely. Acute COPD exacerbation Acute dyspnea, secondary to above, currently stable Pulmonary adenocarcinoma and the patient is status post left upper lobectomy on 11/14/2023 with a complicated postoperative course. Postop staging was 38 with T2 N2 disease. The next generation genetic sequencing showed no evidence of any targetable mutations. Based on that, the patient received a total of 4 cycles of systemic chemotherapy using carboplatinum and Alimta which she completed on 03/31/2024. He also received adjuvant radiation therapy that he completed on 04/23/2024. Staging CAT scan of the chest and abdomen done on 04/24/2024 showed no evidence of any metastatic disease and that showed essentially postsurgical changes. Based on those findings, it was decided to continue ongoing treatment with durvalumab for a total of 1 year. History of vocal cord paralysis Anemia, hemoglobin stable Hypertension Obstructive sleep apnea, uses nasal CPAP at home Former smoker History of anxiety Plan: Clinically unchanged on today's evaluation Keep the patient on Airvo 60 L with an FiO2 of 90 %. Gradual wean down FiO2 as tolerated. Continue supplemental oxygen maintain oxygen saturation of 92% or greater Chest x-ray findings are stable Clinically stable without any interval worsening shortness of breath or oxygenation Continue IV Solu-Medrol 60 mg every 6 hours Continue bronchodilators Continue IV Rocephin, empiric antibiotic coverage Procalcitonin level is at 0.44 Check viral screen was negative We will continue monitoring his condition closely. O Poor prognosis based on above-mentioned comorbidities.
--- NOTE | 2024-06-21 17:01 | P.PN ---
Subjective Progress Note Date: 06/21/24 (delayed charting seen at 1015) 74-year-old with carcinoma of the lung completed chemotherapy in April and has been on radiation who presented with shortness of breath. Ultimately found to have this felt to be secondary to radiation. Patient seen and examined at bedside. Denies chest pain. Still feeling very winded and short of breath. No nausea or vomiting. Eating and drinking well. Feeling better than when he came in. Really wants to get better and back to functioning. 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 acute lung injury Pulmonary adenocarcinoma Acute COPD exacerbation Pneumonia with low procalcitonin Lactic acidosis, likely secondary to hypoxia -Pulmonary note reviewed: Continue current care - IV Solu-Medrol 60 mg every 6 hours, DuoNebs 4 times daily -Azithromycin 500 mg IV daily completed, ceftriaxone 1 g IV every 24 hours for 4 per oncology -Procalcitonin negative -Sputum cultures pending -Continue wean oxygen, currently on Airvo 60 L 90% History of hypertension -Hold Norvasc 10 mg daily losartan, hydrochlorothiazide as patient was slightly hypotensive initially blood pressure stable -metoprolol 50 nightly Chronic normocytic anemia -Continue to monitor, no active bleeding Mild hyponatremia, resolved Mild hyperkalemia resolved Chronic: GERD BPH Depression/anxiety DVT ppx: Imaging: None new Data Review: [employer] remarkable for white blood cell count of 16.8, BMP unremarkable DVT prophylaxis: Lovenox Code status: Full code Anticipated discharge place: Pending clinical course Anticipated discharge time: Pending clinical course This dictation was prepared using [email or web address] voice recognition software. Though every attempt is made to correct errors during dictation some may still exist. Objective - Vital Signs Vital signs: Vital Signs Temp 98 F 06/21/24 16:10 Pulse 70 06/21/24 16:47 Resp 26 H 06/21/24 16:10 BP 137/78 06/21/24 16:10 Pulse Ox 95 06/21/24 16:10 FiO2 90 06/21/24 16:35 Intake & Output 06/20/24 06/21/24 06/21/24 18:59 06:59 18:59 Intake Total 50 Output Total 400 300 200 Balance -400 -300 -150 Weight 83.4 kg Intake: Intake, IV Titration 50 Amount cefTRIAXone 1 gm In 50 Sodium Chloride 0.9% 50 ml @ 100 mls/hr IVPB Q24HR [facility] Rx#:[id number] Output: Urine 400 300 200 Other: Voiding Method Bedside Commode Bedside Commode Urinal Urinal # Bowel Movements 1 - Labs CBC & Chem 7: 06/21/24 07:53 06/21/24 07:53 Labs: Abnormal Lab Results - Last 24 Hours (Table) 06/21/24 06/21/24 Range/Units 07:53 07:53 WBC 16.8 H (3.8-10.6) k/uL RBC 3.12 L (4.30-5.90) m/uL Hgb 9.4 L (13.0-17.5) gm/dL Hct 29.9 L (39.0-53.0) % RDW 17.3 H (11.5-15.5) % Neutrophils # 15.7 H (1.3-7.7) k/uL Lymphocytes # 0.3 L (1.0-4.8) k/uL BUN 26 H (9-20) mg/dL Glucose 182 H (74-99) mg/dL Magnesium 2.4 H (1.6-2.3) mg/dL
[2024-06-22 06:37] LABS: Anisocytosis Slight; HCT 28.5 % (39.0-53.0); HGB 9.1 gm/dL (13.0-17.5); Hypochromasia Moderate; MCH 30.4 pg (25.0-35.0); MCHC 31.8 g/dL (31.0-37.0); MCV 95.7 fL (80.0-100.0); Mean Platelet Volume 9.3; Platelet Count 161 k/uL (150-450); Poikilocytosis Slight; RBC 2.98 m/uL (4.30-5.90); RDW 17.2 % (11.5-15.5); WBC 10.7 k/uL (3.8-10.6)
[2024-06-22 06:56] LABS: C Reactive Protein 4.4 mg/dL (<1.0)
[2024-06-22 07:05] LABS: Magnesium 2.4 mg/dL (1.6-2.3); Phosphorus 4.1 mg/dL (2.5-4.5)
--- NOTE | 2024-06-22 11:49 | P.PN ---
Subjective Progress Note Date: 06/22/24 No new complaints today. Remains on AirVo. Consider de-escalation of abx today. Gen: In NAD, non-toxic HEENT: normocephalic, atraumatic, hearing acuity is intant, mucous membranes moist CVS: perfusing all extremities well, no pitting edema, Respiratory: symmetric chest expansion, no accessory muscle use, GI: soft, NTTP, ND, : no suprapubic tenderness, no CVA tenderness MSK/Derm: no rashes, cyanosis Neuro: CN II-XII intact, no motor weakness, Psych: cooperative, euthymic mood, judgment and insight is intact Hospital course: Hospital Course: 74-year-old male with past medical history of pulmonary adenocarcinoma status post chemotherapy and radiation, hypertension, and BPH who presents to the ED with chief complaint of shortness of breath. He was admitted on 06/07 with similar complaint of exertional dyspnea and hypoxia. Pulmonology and oncology were following the patient during his hospital stay. Patient was started on bronchodilators, Solu-Medrol, and IV antibiotics. Recent chest CT showed developing groundglass opacities and infiltrate with consolidation in the left upper lobe and left perihilar region. Patient's respiratory status improved and he was discharged home with oxygen and a nebulizer, and steroid course. Vitals on admission temperature 97.7, pulse 78 bpm, respiratory rate 20, blood pressure 96/52, O2 saturation 92% on 7 L nasal cannula which was escalated to 10 L high flow and saturation was improved to 94%. EKG as sinus rhythm with ventricular rate of 78 bpm and QTc of 422 ms. CXR shows bilateral lung infiltrates greater on the left. Recent chest CT showed developing groundglass opacities and infiltrate with consolidation in the left upper lobe and left perihilar region. Labs on admission show WBC 8.8, hemoglobin 9.3, platelets 152. PT 12.5, INR 1.2, PTT 21.6. Sodium 134, potassium 4.9, chloride 98, bicarb 27, BUN 31, creatinine 0.85, glucose 171. Lactate 2.1. NT proBNP 646. Troponin negative. Patient started on IV steroids, IV antibiotics, bronchodilators. Also on Airvo. Pulmonology and oncology following. Assessment and Plan: Patient is severely ill, needs close monitoring. Prognosis guarded. Active: Acute on chronic hypoxic respiratory failure likely secondary to radiation pneumonitis Pulmonary adenocarcinoma Acute COPD exacerbation Pneumonia with low procalcitonin Lactic acidosis, likely secondary to hypoxia -Pulmonology following, on IV Solu-Medrol 60 mg every 6 hours, DuoNebs 4 times daily -Azithromycin 500 mg IV daily completed, ceftriaxone 1 g IV every 24 hours per oncology for 7 days today (day 10/15) -Sputum cultures pending -Continue wean oxygen, currently on Airvo History of hypertension -Hold amlodipine, losartan, hydrochlorothiazide as patient was slightly hypotensive initially -Okay to continue metoprolol 50 nightly Chronic normocytic anemia -Continue to monitor, no active bleeding Mild hyponatremia, resolved Mild hyperkalemia, improved -improved with beta agonist inhalers -Repeat labs tomorrow Chronic: GERD BPH Depression/anxiety DVT ppx: Lovenox Code status: Full code Anticipated discharge place: Pending clinical course Anticipated discharge time: Pending clinical course Objective - Vital Signs Vital signs: Vital Signs Temp 97.9 F 06/22/24 08:30 Pulse 70 06/22/24 11:37 Resp 24 06/22/24 08:30 BP 156/87 06/22/24 08:30 Pulse Ox 96 06/22/24 08:30 FiO2 91 06/22/24 11:27 Intake & Output 06/21/24 06/22/24 06/22/24 18:59 06:59 18:59 Intake Total 50 200 Output Total 500 975 Balance -450 -775 Weight 83.5 kg Intake: Intake, IV Titration 50 Amount cefTRIAXone 1 gm In 50 Sodium Chloride 0.9% 50 ml @ 100 mls/hr IVPB Q24HR [facility] Rx#:[id number] Oral 200 Output: Urine 500 975 Other: Voiding Method Bedside Commode Urinal # Bowel Movements 1 - Labs CBC & Chem 7: 06/22/24 05:33 06/21/24 07:53 Labs: Abnormal Lab Results - Last 24 Hours (Table) 06/22/24 06/22/24 Range/Units 05:33 05:33 WBC 10.7 H (3.8-10.6) k/uL RBC 2.98 L (4.30-5.90) m/uL Hgb 9.1 L (13.0-17.5) gm/dL Hct 28.5 L (39.0-53.0) % RDW 17.2 H (11.5-15.5) % Magnesium 2.4 H (1.6-2.3) mg/dL C-Reactive Protein 4.4 H (<1.0) mg/dL
--- NOTE | 2024-06-22 12:30 | P.PN ---
Subjective Progress Note Date: 06/22/24 Patient is a 74-year-old male with past medical history significant for stage I II pulmonary adenocarcinoma. He is status post left upper lobectomy with mediastinal lymph node dissection done back in November,. Subsequently, started on chemotherapy and radiation therapy. His oncologist is Dr. Zamora. Last dose of chemotherapy was April,. He follows with Dr. Lancaster for radiation treatments. Last radiation treatment was May 24, 2024. Of note, patient recently admitted and discharged June 12. 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 Procalcitonin level was low. He was discharged on home oxygen and oral steroids. Patient states that his breathing never really returned to baseline. He is severely short of breath with minimal exertion such as getting up to the bathroom. His is at bedside, states his oxygen drops as low as 50%. She brought him to the emergency department for evaluation yesterday evening. He is currently being evaluated in ER, room 11. He is on 10 L high flow nasal cannula. He is awake and alert and no signs of CO2 narcosis. Nondistressed. Nontachypneic. No accessory muscle use. He states he has a p ersistent cough that is congested with minimal to no sputum production. Denies any fevers, chills, chest pain, hemoptysis. Denies any sick contacts. He has been generally weak, and lost an additional 10 pounds over the last month or so. Appetite has been poor. Most recent chest CT done on his recent admission showing diffuse bilateral groundglass opacities, and postsurgical changes in the left lung. No enlarging mediastinal or hilar adenopathy. Chest x-ray that was done last night on his readmission to the hospital continues to show bilateral lung infiltrates greater on the left, left upper portion may be slightly improved. CBC is unremarkable for leukocytosis. Hemoglobin stable at 9.4 g/dL. Platelets 158. Previous procalcitonin level 0.34 and repeat is pending. CMP: Sodium 134, potassium 4.9, chloride 98, serum bicarb 27, BUN 31, creatinine 0.5, glucose 171. Lactic 2.1. Is unremarkable. Troponin 0.012. NT proBNP not significantly elevated, 646. Current vitals: Temperature 98.5 F, heart rate 74 bpm, blood pressure 98/67 mmHg, nontachypneic, SpO2 is 94% on 10 L high flow nasal cannula. On 06/19/2024, the patient is being seen for a follow-up. The patient remains h ypoxic and the patient was placed on Airvo 60 L with an FiO2 of 65%. A follow- up CAT scan of the chest was obtained on 06/18/2024 and there is no evidence of any pulmonary embolism. Of significance is development of bilateral multifocal groundglass pulmonary opacities with organizing changes in the left lung. The groundglass opacities slightly were more prominent compared to the earlier CAT scan especially on the right. Left lung findings are essentially stable. There is also mild to moderate central left-sided bronchiectatic changes. The patient remains afebrile. White cell count is 8.7. Hemoglobin is 8.6. Sodium is at 140 with a potassium level of 5.3. Bicarb level is 32. Lactic acid level is at 1.9. Procalcitonin level was at 0.44. He is able to communicate. His breathing is labored and he desaturates with minimal work of activity. The patient remains on IV Solu-Medrol 60 mg every 6 hours. He was placed also empirically on a combination of Rocephin and Zithromax. On 06/20/2024, the patient is being seen for a follow-up. Remains hypoxic and this morning the patient is on Airvo at 60 L with an FiO2 of 90%. Current pulse ox in the order of 94%. A follow-up chest x-ray was also done and shows stable multifocal right lung infiltrate and ongoing dense infiltration in the left perihilar and left upper lobe along with some volume loss in the left lung. He is able to sit up in a chair. He continues to have chronic hoarseness. Denies having any interval worsening shortness of breath. Using incentive spirometer. White cell count is 9.6 with a hemoglobin 8.8 and a platelet count of 156. BUN is 29 with a creatinine of 0.7 and sodium levels at 137. Calcium level is not elevated at 9.0. Remains on Rocephin. Remains on IV Solu-Medrol. Remains on DuoNeb nebulized treatments [id number]. Rest of the medications are essentially unchanged. On 06/21/2024, the patient remains on Airvo and overall respiratory status and oxygenation has been unchanged. The patient remains on Airvo 60 L with an FiO2 of 90%. White cell count 16.8 with a hemoglobin of of 9.4 and a platelet count of 179. BUN 26 with a creatinine of 0.6. Voice remains hoarse as the patient is known to have chronic paralysis of the vocal cord. Remains on IV Solu-Medrol 60 mg per 6 hours. Remains on IV Rocephin. No new complaints otherwise for now. On 06/22/2024, the patient is being seen for a follow-up. Overall respiratory status is unchanged compared to yesterday the patient remains on Airvo 60 L with an FiO2 of 90% with a pulse ox of 96%. No sputum production. No chest pain. No interval worsening shortness of breath. White cell count at time of 9.1 and a platelet count of 161. CRP is at 4.4. Phosphorus of 4.4 with a magnesium of 2.4. Medication remain unchanged the patient remains on IV Solu-Medrol 60 mg every 6 hours. Remains on IV Rocephin on an empiric basis. Objective - Vital Signs Vital signs: Vital Signs Temp 97.9 F 06/22/24 08:30 Pulse 70 06/22/24 08:30 Resp 24 06/22/24 08:30 BP 156/87 06/22/24 08:30 Pulse Ox 96 06/22/24 08:30 FiO2 91 06/22/24 08:30 Intake & Output 06/21/24 06/22/24 06/22/24 18:59 06:59 18:59 Intake Total 50 200 Output Total 500 975 Balance -450 -775 Weight 83.5 kg Intake: Intake, IV Titration 50 Amount cefTRIAXone 1 gm In 50 Sodium Chloride 0.9% 50 ml @ 100 mls/hr IVPB Q24HR [facility] Rx#:[id number] Oral 200 Output: Urine 500 975 Other: Voiding Method Bedside Commode Urinal # Bowel Movements 1 - Exam GENERAL EXAM: Alert, 74-year-old well-nourished male, on Airvo at 60 L with an FiO2 of 90% HEAD: Normocephalic and atraumatic EYES: Normal reaction of pupils, equal size. NOSE: Clear with pink turbinates. THROAT: No erythema or exudates. No white plaques or thrush. NECK: No masses, no JVD. CHEST: No chest wall deformity. Previous thoracotomy scar well-approximated LUNGS: Equal air entry with posterior lower right lung with inspiratory crackles, left lower lung diminished to auscultation, anterior expiratory wheezes noted bilaterally. On 10 L high flow nasal cannula, no accessory muscle use or conversational dyspnea or noted respiratory distress.. CVS: S1 and S2 normal with no audible murmur, regular rhythm. No extra heart sounds ABDOMEN: No hepatosplenomegaly, active bowel sounds, no guarding or rigidity. SPINE: No scoliosis or deformity SKIN: No rashes CENTRAL NERVOUS SYSTEM: No focal deficits, tone is normal in all 4 extremities. EXTREMITIES: There is no peripheral edema, clubbing, or cyanosis. Peripheral pulses are intact. - Labs CBC & Chem 7: 06/22/24 05:33 06/21/24 07:53 Labs: Abnormal Lab Results - Last 24 Hours (Table) 06/22/24 06/22/24 Range/Units 05:33 05:33 WBC 10.7 H (3.8-10.6) k/uL RBC 2.98 L (4.30-5.90) m/uL Hgb 9.1 L (13.0-17.5) gm/dL Hct 28.5 L (39.0-53.0) % RDW 17.2 H (11.5-15.5) % Magnesium 2.4 H (1.6-2.3) mg/dL C-Reactive Protein 4.4 H (<1.0) mg/dL Assessment and Plan Assessment: Acute hypoxemic respiratory failure. CT scan of the chest performed 06/10/2024 revealed groundglass opacities and infiltrate with consolidation in the left upper lobe and right perihilar region. Procalcitonin level previously low. Repeat chest x-ray done on this readmission showing similar diffuse bilateral lung infiltrates/opacities with possible slight improvement in the left upper lung. Repeat CAT scan of the chest on 06/18/2024 shows worsening in groundglass pulmonary filtrates specially on the right. Left sided findings are essentially unchanged. Meanwhile, the patient's oxygenation has gotten worse. The patient is currently on Airvo 60 L and FiO2 of 90%. Chest x-ray from 06/20/2024 shows stable bilateral pulmonary infiltrates are discussed. Suspect acute lung injury versus radiation pneumonitis. Infections are felt to be less likely. Acute COPD exacerbation Acute dyspnea, secondary to above, currently stable Pulmonary adenocarcinoma and the patient is status post left upper lobectomy on 11/14/2023 with a complicated postoperative course. Postop staging was 38 with T2 N2 disease. The next generation genetic sequencing showed no evidence of any targetable mutations. Based on that, the patient received a total of 4 cycles of systemic chemotherapy using carboplatinum and Alimta which she completed on 03/31/2024. He also received adjuvant radiation therapy that he completed on 04/23/2024. Staging CAT scan of the chest and abdomen done on 04/24/2024 showed no evidence of any metastatic disease and that showed essentially postsurgical changes. Based on those findings, it was decided to continue ongoing treatment with durvalumab for a total of 1 year. History of vocal cord paralysis Anemia, hemoglobin stable Hypertension Obstructive sleep apnea, uses nasal CPAP at home Former smoker History of anxiety Plan: Clinically unchanged on today's evaluation continues to be on high flow oxygen and there is no significant improvement in his oxygenation. Keep the patient on Airvo 60 L with an FiO2 of 90 %. Gradual wean down FiO2 as tolerated. Continue supplemental oxygen maintain oxygen saturation of 92% or greater Chest x-ray findings are stable Clinically stable without any interval worsening shortness of breath or oxygenation Continue IV Solu-Medrol 60 mg every 6 hours Continue bronchodilators Continue IV Rocephin, empiric antibiotic coverage Procalcitonin level is at 0.44 Check viral screen was negative We will continue monitoring his condition closely. Repeat chest x-ray in the morning Poor prognosis based on above-mentioned comorbidities.
[2024-06-23 06:32] LABS: African American GFR (CKD) >90 (>60 ml/min/1.73 sqM); Anion Gap 5 mmol/L; Blood Urea Nitrogen 35 mg/dL (9-20); Calcium 8.9 mg/dL (8.4-10.2); Carbon Dioxide 31 mmol/L (22-30); Chloride 101 mmol/L (98-107); Glucose 154 mg/dL (74-99); Magnesium 2.4 mg/dL (1.6-2.3); Non-African American GFR(CKD) >90 (>60 ml/min/1.73 sqM); Potassium 4.7 mmol/L (3.5-5.1); Sodium 137 mmol/L (137-145)
[2024-06-23 06:34] LABS: Anisocytosis Slight; Basophils % (A) 0 %; Eosinophils % (A) 0 %; HCT 27.5 % (39.0-53.0); HGB 8.8 gm/dL (13.0-17.5); Hypochromasia Moderate; Lymphocytes # (A) 0.1 k/uL (1.0-4.8); Lymphocytes % (A) 2 %; MCV 93.9 fL (80.0-100.0); Monocytes # (A) 0.3 k/uL (0-1.0); Monocytes % (A) 4 %; Neutrophils # (A) 8.7 k/uL (1.3-7.7); Neutrophils % (A) 95 %; Platelet Count 123 k/uL (150-450); Poikilocytosis Slight; RBC 2.92 m/uL (4.30-5.90); RDW 17.5 % (11.5-15.5); WBC 9.2 k/uL (3.8-10.6)
--- NOTE | 2024-06-23 08:41 | XR ---
EXAMINATION TYPE: XR chest 1V DATE OF EXAM: 06/23/2024 6:57 AM COMPARISON: 06/20/2024 CLINICAL INDICATION: Male, 74 years old with history of Hypoxic respiratory failure pneumonia, TECHNIQUE: XR chest 1V view(s) obtained. FINDINGS: The heart size is normal. The pulmonary vasculature is indistinct. Diffuse infiltrates to the right lung. There is a consolidation in the left upper medial lung field. Infiltrate is within the mid and lower lung field on the left. IMPRESSION: 1. Persistent left and right infiltrates greater on the left. Continued follow-up recommended [facility], , 06/23/2024 8:39 AM
--- NOTE | 2024-06-23 12:08 | P.PN ---
Subjective Progress Note Date: 06/23/24 No new complaints today. Improving CXR. Good appetite, having BMs. Gen: In NAD, non-toxic HEENT: normocephalic, atraumatic, hearing acuity is intant, mucous membranes moist CVS: perfusing all extremities well, no pitting edema, Respiratory: symmetric chest expansion, no accessory muscle use, GI: soft, NTTP, ND, : no suprapubic tenderness, no CVA tenderness MSK/Derm: no rashes, cyanosis Neuro: CN II-XII intact, no motor weakness, Psych: cooperative, euthymic mood, judgment and insight is intact Hospital course: Hospital Course: 74-year-old male with past medical history of pulmonary adenocarcinoma status post chemotherapy and radiation, hypertension, and BPH who presents to the ED with chief complaint of shortness of breath. He was admitted on 06/07 with similar complaint of exertional dyspnea and hypoxia. Pulmonology and oncology were following the patient during his hospital stay. Patient was started on bronchodilators, Solu-Medrol, and IV antibiotics. Recent chest CT showed developing groundglass opacities and infiltrate with consolidation in the left upper lobe and left perihilar region. Patient's respiratory status improved and he was discharged home with oxygen and a nebulizer, and steroid course. Vitals on admission temperature 97.7, pulse 78 bpm, respiratory rate 20, blood pressure 96/52, O2 saturation 92% on 7 L nasal cannula which was escalated to 10 L high flow and saturation was improved to 94%. EKG as sinus rhythm with ventricular rate of 78 bpm and QTc of 422 ms. CXR shows bilateral lung infiltrates greater on the left. Recent chest CT showed developing groundglass opacities and infiltrate with consolidation in the left upper lobe and left perihilar region. Labs on admission show WBC 8.8, hemoglobin 9.3, platelets 152. PT 12.5, INR 1.2, PTT 21.6. Sodium 134, potassium 4.9, chloride 98, bicarb 27, BUN 31, creatinine 0.85, glucose 171. Lactate 2.1. NT proBNP 646. Troponin negative. Patient started on IV steroids, IV antibiotics, bronchodilators. Also on Airvo. Pulmonology and oncology following. Assessment and Plan: Patient is severely ill, needs close monitoring. Prognosis guarded. Active: Acute on chronic hypoxic respiratory failure likely secondary to radiation pneumonitis Pulmonary adenocarcinoma Acute COPD exacerbation Pneumonia with low procalcitonin Lactic acidosis, likely secondary to hypoxia -Pulmonology following, on IV Solu-Medrol 60 mg every 6 hours, DuoNebs 4 times daily -Azithromycin 500 mg IV daily completed, ceftriaxone 1 g IV every 24 hours per oncology for 7 days today (day 6) -Sputum cultures pending -Continue wean oxygen, currently on Airvo History of hypertension -Hold amlodipine, losartan, hydrochlorothiazide as patient was slightly hypotensive initially -Okay to continue metoprolol 50 nightly Chronic normocytic anemia -Continue to monitor, no active bleeding Mild hyponatremia, resolved Mild hyperkalemia, improved -improved with beta agonist inhalers -Repeat labs tomorrow Chronic: GERD BPH Depression/anxiety DVT ppx: Lovenox Code status: Full code Anticipated discharge place: Pending clinical course Anticipated discharge time: Pending clinical course Objective - Vital Signs Vital signs: Vital Signs Temp 97.7 F 06/23/24 04:00 Pulse 64 06/23/24 11:45 Resp 20 06/23/24 08:00 BP 133/75 06/23/24 08:00 Pulse Ox 95 06/23/24 08:00 FiO2 90 06/23/24 11:33 Intake & Output 06/22/24 06/23/24 06/23/24 18:59 06:59 18:59 Intake Total 1177 20 250 Output Total 1400 480 Balance -223 -460 250 Weight 86 kg Intake: IV 20 10 Invasive Line 1 10 10 Invasive Line 2 10 Oral 1177 240 Output: Urine 1400 480 Other: Voiding Method Bedside Commode Bedside Commode Urinal Urinal # Voids 3 1 # Bowel Movements 1 - Labs CBC & Chem 7: 06/23/24 05:28 06/23/24 05:28 Labs: Abnormal Lab Results - Last 24 Hours (Table) 06/23/24 06/23/24 Range/Units 05:28 05:28 RBC 2.92 L (4.30-5.90) m/uL Hgb 8.8 L (13.0-17.5) gm/dL Hct 27.5 L (39.0-53.0) % RDW 17.5 H (11.5-15.5) % Plt Count 123 L (150-450) k/uL Neutrophils # 8.7 H (1.3-7.7) k/uL Lymphocytes # 0.1 L (1.0-4.8) k/uL Carbon Dioxide 31 H (22-30) mmol/L BUN 35 H (9-20) mg/dL Glucose 154 H (74-99) mg/dL Magnesium 2.4 H (1.6-2.3) mg/dL
--- NOTE | 2024-06-23 13:58 | P.PN ---
Subjective Progress Note Date: 06/23/24 Principal diagnosis: Hypoxia. S/P treatment for NSCLC In follow-up today patient states that he was able to get to the commode and back in the bed and it took him about 8 minutes to recover. He reports that this is an improvement. He is able to do slight activity just at the bedside. He reports that his baseline O2 levels or 5 L. He denies any fevers, nausea, vomiting, chest pain, acute changes in bowel or bladder habits. Objective - Vital Signs Vital signs: Vital Signs Temp 97.6 F 06/23/24 12:00 Pulse 64 06/23/24 12:00 Resp 20 06/23/24 12:00 BP 146/85 06/23/24 12:00 Pulse Ox 98 06/23/24 12:00 FiO2 90 06/23/24 12:00 Intake & Output 06/22/24 06/23/24 06/23/24 18:59 06:59 18:59 Intake Total 1177 20 250 Output Total 1400 480 Balance -223 -460 250 Weight 86 kg Intake: IV 20 10 Invasive Line 1 10 10 Invasive Line 2 10 Oral 1177 240 Output: Urine 1400 480 Other: Voiding Method Bedside Commode Bedside Commode Urinal Urinal # Voids 3 1 # Bowel Movements 1 - Constitutional General appearance: Present: average body habitus, cooperative, no acute distress - EENT Eyes: Present: anicteric sclerae, EOMI ENT: Present: hearing grossly normal - Respiratory Respiratory: right: CTA (Harsh air entry), left: diminished, negative: wheezing - Cardiovascular Rhythm: regular - Peripheral edema foot Peripheral Edema: bilateral: 1+ - Neurologic Neurologic: Present: CNII-XII intact - Musculoskeletal Musculoskeletal: Present: generalized weakness - Psychiatric Psychiatric: Present: A&O x's 3, appropriate affect, intact judgment & insight - Labs CBC & Chem 7: 06/23/24 05:28 06/23/24 05:28 Labs: Abnormal Lab Results - Last 24 Hours (Table) 06/23/24 06/23/24 Range/Units 05:28 05:28 RBC 2.92 L (4.30-5.90) m/uL Hgb 8.8 L (13.0-17.5) gm/dL Hct 27.5 L (39.0-53.0) % RDW 17.5 H (11.5-15.5) % Plt Count 123 L (150-450) k/uL Neutrophils # 8.7 H (1.3-7.7) k/uL Lymphocytes # 0.1 L (1.0-4.8) k/uL Carbon Dioxide 31 H (22-30) mmol/L BUN 35 H (9-20) mg/dL Glucose 154 H (74-99) mg/dL Magnesium 2.4 H (1.6-2.3) mg/dL - Imaging and Cardiology Chest x-ray: report reviewed (Persistent left > right infiltrates) Assessment and Plan (1) Acute hypoxemic respiratory failure Current Visit: Yes Status: Acute Priority: High Code(s): J96.01 - ACUTE RESPIRATORY FAILURE WITH HYPOXIA SNOMED Code(s): 091028412 (2) Adenocarcinoma, lung Current Visit: Yes Status: Acute Priority: Medium Code(s): C34.90 - MALIGNANT NEOPLASM OF UNSP PART OF UNSP BRONCHUS OR LUNG SNOMED Code(s): 089608942 Plan: Acute hypoxemic respiratory failure -Pulmonary is following. -Underlying cause differentials including COPD exacerbation versus radiation pneumonitis +/- pneumonia. Pulmonary following with patient. Patient has been seen by Radiation Oncology -Checks x-ray today, no reported new findings. -Respiratory status slightly improved per patient, O2 needs unchanged at this time -If patient respiratory status does not improve or worsens, possible bronchoscopy? Defer treatment of the same to Pulmonary. Non-small cell lung cancer -Patient is status post surgery, he completed adjuvant chemo/IO. Maintenance immunotherapy pending. -All treatment will be on hold until patient has adequately and completely recovered from his current illness. Mild anemia and thrombocytopenia -Likely prolonged chemotherapy effects and acute illness. -Transfuse for hemoglobin less than 7 or if patient is symptomatic-take into consideration fluid status. -Platelets 123,000, patient is okay for anticoagulation and antiplatelet thera pies if needed. Cont DVT prophylaxis.
--- NOTE | 2024-06-23 16:15 | P.PN ---
Subjective Progress Note Date: 06/23/24 Principal diagnosis: Acute hypoxic respiratory failure, multifactorial Patient is a 74-year-old male with past medical history significant for stage III pulmonary adenocarcinoma. He is status post left upper lobectomy with mediastinal lymph node dissection done back in November,. Subsequently, started on chemotherapy and radiation therapy. His oncologist is Dr. Zamora. L ast dose of chemotherapy was April,. He follows with Dr. Lancaster for radiation treatments. Last radiation treatment was May 24, 2024. Of note, patient recently admitted and discharged June 12. 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 Procalcitonin level was low. He was discharged on home oxygen and oral steroids. Patient states that his breathing never really returned to baseline. He is severely short of breath with minimal exertion such as getting up to the bathroom. His is at bedside, states his oxygen drops as low as 50%. She brought him to the emergency department for evaluation yesterday evening. He is currently being evaluated in ER, room 11. He is on 10 L high flow nasal cannula. He is awake and alert and no signs of CO2 narcosis. Nondistressed. Nontachypneic. No accessory muscle use. He states he has a persistent cough that is congested with minimal to no sputum production. Denies any fevers, chills, chest pain, hemoptysis. Denies any sick contacts. He has been generally weak, and lost an additional 10 pounds over the last month or so. Appetite has been poor. Most recent chest CT done on his recent admission showing diffuse bilateral groundglass opacities, and postsurgical changes in the left lung. No enlarging mediastinal or hilar adenopathy. Chest x-ray that was done last night on his readmission to the hospital continues to show bilateral lung infiltrates greater on the left, left upper portion may be slightly improved. CBC is unremarkable for leukocytosis. Hemoglobin stable at 9.4 g/dL. Platelets 158. Previous procalcitonin level 0.34 and repeat is pending. CMP: Sodium 134, potassium 4.9, chloride 98, serum bicarb 27, BUN 31, creatinine 0.5, glucose 171. Lactic 2.1. Is unremarkable. Troponin 0.012. NT proBNP not significantly elevated, 646. Current vitals: Temperature 98.5 F, heart rate 74 bpm, blood pressure 98/67 mmHg, nontachypneic, SpO2 is 94% on 10 L high flow nasal cannula. On 06/19/2024, the patient is being seen for a follow-up. The patient remains hypoxic and the patient was placed on Airvo 60 L with an FiO2 of 65%. A follow- up CAT scan of the chest was obtained on 06/18/2024 and there is no evidence of any pulmonary embolism. Of significance is development of bilateral multifocal groundglass pulmonary opacities with organizing changes in the left lung. The groundglass opacities slightly were more prominent compared to the earlier CAT scan especially on the right. Left lung findings are essentially stable. There is also mild to moderate central left-sided bronchiectatic changes. The patient remains afebrile. White cell count is 8.7. Hemoglobin is 8.6. Sodium is at 140 with a potassium level of 5.3. Bicarb level is 32. Lactic acid level is at 1.9. Procalcitonin level was at 0.44. He is able to communicate. His breathing is labored and he desaturates with minimal work of activity. The patient remains on IV Solu-Medrol 60 mg every 6 hours. He was placed also empirically on a combination of Rocephin and Zithromax. On 06/20/2024, the patient is being seen for a follow-up. Remains hypoxic and this morning the patient is on Airvo at 60 L with an FiO2 of 90%. Current pulse ox in the order of 94%. A follow-up chest x-ray was also done and shows stable multifocal right lung infiltrate and ongoing dense infiltration in the left perihilar and left upper lobe along with some volume loss in the left lung. He is able to sit up in a chair. He continues to have chronic hoarseness. Denies having any interval worsening shortness of breath. Using incentive spirometer. White cell count is 9.6 with a hemoglobin 8.8 and a platelet count of 156. BUN is 29 with a creatinine of 0.7 and sodium levels at 137. Calcium level is not elevated at 9.0. Remains on Rocephin. Remains on IV Solu-Medrol. Remains on DuoNeb nebulized treatments [id number]. Rest of the medications are essentially unchanged. On 06/21/2024, the patient remains on Airvo and overall respiratory status and oxygenation has been unchanged. The patient remains on Airvo 60 L with an FiO2 of 90%. White cell count 16.8 with a hemoglobin of of 9.4 and a platelet count of 179. BUN 26 with a creatinine of 0.6. Voice remains hoarse as the patient is known to have chronic paralysis of the vocal cord. Remains on IV Solu-Medrol 60 mg per 6 hours. Remains on IV Rocephin. No new complaints otherwise for now. On 06/22/2024, the patient is being seen for a follow-up. Overall respiratory status is unchanged compared to yesterday the patient remains on Airvo 60 L with an FiO2 of 90% with a pulse ox of 96%. No sputum production. No chest pain. No interval worsening shortness of breath. White cell count at time of 9.1 and a platelet count of 161. CRP is at 4.4. Phosphorus of 4.4 with a magnesium of 2.4. Medication remain unchanged the patient remains on IV Solu-Medrol 60 mg every 6 hours. Remains on IV Rocephin on an empiric basis. Patient was seen and examined today on 06/23/2024, patient is about the same, still requiring Airvo, 90% and 60 L flow, O2 saturation remains marginal chest x-ray continues to show significant disease involving left lung and right lung patient remains on antibiotics and steroids, no major improvement noted his antibiotics remain Rocephin. Not much of a change in the last few days since admission.WBC count is 9.2 hemoglobin is 8.8 electrolytes are normal renal profile is normal, again her chest x-ray is worsening showing persistent left and right infiltrates Objective - Vital Signs Vital signs: Vital Signs Temp 97.6 F 06/23/24 12:00 Pulse 64 06/23/24 15:58 Resp 20 06/23/24 14:00 BP 146/85 06/23/24 12:00 Pulse Ox 98 06/23/24 12:00 FiO2 90 06/23/24 16:02 Intake & Output 06/22/24 06/23/24 06/23/24 18:59 06:59 18:59 Intake Total 1177 20 250 Output Total 1400 480 Balance -223 -460 250 Weight 86 kg Intake: IV 20 10 Invasive Line 1 10 10 Invasive Line 2 10 Oral 1177 240 Output: Urine 1400 480 Other: Voiding Method Bedside Commode Bedside Commode Urinal Urinal # Voids 3 1 # Bowel Movements 1 - Exam GENERAL EXAM: revealed 74-year-old white male in no distress on Airvo HEAD: Normocephalic and atraumatic EYES: Normal reaction of pupils, equal size. NOSE: Clear with pink turbinates. THROAT: No erythema or exudates. No white plaques or thrush. NECK: No masses, no JVD. CHEST: No chest wall deformity. Previous thoracotomy scar well-approximated LUNGS: Diminished breath sounds and crackles at the bases bilaterally. CVS: S1 and S2 normal with no audible murmur, regular rhythm. No extra heart so unds ABDOMEN: No hepatosplenomegaly, active bowel sounds, no guarding or rigidity. SKIN: No rashes CENTRAL NERVOUS SYSTEM: No focal deficits, tone is normal in all 4 extremities. EXTREMITIES: There is no peripheral edema, clubbing, or cyanosis. Peripheral pulses are intact. - Labs CBC & Chem 7: 06/23/24 05:28 06/23/24 05:28 Labs: Abnormal Lab Results - Last 24 Hours (Table) 06/23/24 06/23/24 Range/Units 05:28 05:28 RBC 2.92 L (4.30-5.90) m/uL Hgb 8.8 L (13.0-17.5) gm/dL Hct 27.5 L (39.0-53.0) % RDW 17.5 H (11.5-15.5) % Plt Count 123 L (150-450) k/uL Neutrophils # 8.7 H (1.3-7.7) k/uL Lymphocytes # 0.1 L (1.0-4.8) k/uL Carbon Dioxide 31 H (22-30) mmol/L BUN 35 H (9-20) mg/dL Glucose 154 H (74-99) mg/dL Magnesium 2.4 H (1.6-2.3) mg/dL Microbiology - Last 24 Hours (Table) 06/19/24 07:51 Sputum Culture - Final Sputum Assessment and Plan Assessment: Pression: Acute hypoxic respiratory failure Acute exacerbation of COPD Pulmonary adenocarcinoma with previous left upper lobectomy on 11/14/2023 with complicated postoperative course with postoperative staging of T2 N2 disease, genetic sequencing showed no evidence of any targetable mutation patient is status post chemotherapy completed on 03/31, patient is on durvalumab for a total of 1 year 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
[2024-06-24 08:13] LABS: Anisocytosis Slight; Basophils % (A) 0 %; Eosinophils % (A) 0 %; HGB 9.5 gm/dL (13.0-17.5); Hypochromasia Marked; Lymphocytes # (A) 0.2 k/uL (1.0-4.8); Lymphocytes % (A) 1 %; MCH 30.1 pg (25.0-35.0); MCHC 31.8 g/dL (31.0-37.0); MCV 94.7 fL (80.0-100.0); Mean Platelet Volume 8.2; Monocytes # (A) 0.5 k/uL (0-1.0); Monocytes % (A) 4 %; Neutrophils % (A) 94 %; Platelet Count 124 k/uL (150-450); RBC 3.17 m/uL (4.30-5.90); RDW 17.7 % (11.5-15.5); WBC 13.7 k/uL (3.8-10.6)
[2024-06-24 08:41] LABS: African American GFR (CKD) >90 (>60 ml/min/1.73 sqM); Anion Gap 7 mmol/L; Blood Urea Nitrogen 29 mg/dL (9-20); Calcium 9.1 mg/dL (8.4-10.2); Carbon Dioxide 31 mmol/L (22-30); Chloride 100 mmol/L (98-107); Glucose 170 mg/dL (74-99); Magnesium 2.4 mg/dL (1.6-2.3); Non-African American GFR(CKD) >90 (>60 ml/min/1.73 sqM); Potassium 4.9 mmol/L (3.5-5.1); Sodium 138 mmol/L (137-145)
[2024-06-24] MEDS: CLOTRIMAZOLE/BETAMETH 1-0.05% LOTION 30 ML BTL TOPICAL SCH (12:06)
--- NOTE | 2024-06-24 13:17 | P.PN ---
Subjective Progress Note Date: 06/24/24 Principal diagnosis: Acute hypoxic respiratory failure, multifactorial Patient is a 74-year-old male with past medical history significant for stage III pulmonary adenocarcinoma. He is status post left upper lobectomy with mediastinal lymph node dissection done back in November,. Subsequently, started on chemotherapy and radiation therapy. His oncologist is Dr. Zamora. L ast dose of chemotherapy was April,. He follows with Dr. Lancaster for radiation treatments. Last radiation treatment was May 24, 2024. Of note, patient recently admitted and discharged June 12. 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 Procalcitonin level was low. He was discharged on home oxygen and oral steroids. Patient states that his breathing never really returned to baseline. He is severely short of breath with minimal exertion such as getting up to the bathroom. His is at bedside, states his oxygen drops as low as 50%. She brought him to the emergency department for evaluation yesterday evening. He is currently being evaluated in ER, room 11. He is on 10 L high flow nasal cannula. He is awake and alert and no signs of CO2 narcosis. Nondistressed. Nontachypneic. No accessory muscle use. He states he has a persistent cough that is congested with minimal to no sputum production. Denies any fevers, chills, chest pain, hemoptysis. Denies any sick contacts. He has been generally weak, and lost an additional 10 pounds over the last month or so. Appetite has been poor. Most recent chest CT done on his recent admission showing diffuse bilateral groundglass opacities, and postsurgical changes in the left lung. No enlarging mediastinal or hilar adenopathy. Chest x-ray that was done last night on his readmission to the hospital continues to show bilateral lung infiltrates greater on the left, left upper portion may be slightly improved. CBC is unremarkable for leukocytosis. Hemoglobin stable at 9.4 g/dL. Platelets 158. Previous procalcitonin level 0.34 and repeat is pending. CMP: Sodium 134, potassium 4.9, chloride 98, serum bicarb 27, BUN 31, creatinine 0.5, glucose 171. Lactic 2.1. Is unremarkable. Troponin 0.012. NT proBNP not significantly elevated, 646. Current vitals: Temperature 98.5 F, heart rate 74 bpm, blood pressure 98/67 mmHg, nontachypneic, SpO2 is 94% on 10 L high flow nasal cannula. On 06/19/2024, the patient is being seen for a follow-up. The patient remains hypoxic and the patient was placed on Airvo 60 L with an FiO2 of 65%. A follow- up CAT scan of the chest was obtained on 06/18/2024 and there is no evidence of any pulmonary embolism. Of significance is development of bilateral multifocal groundglass pulmonary opacities with organizing changes in the left lung. The groundglass opacities slightly were more prominent compared to the earlier CAT scan especially on the right. Left lung findings are essentially stable. There is also mild to moderate central left-sided bronchiectatic changes. The patient remains afebrile. White cell count is 8.7. Hemoglobin is 8.6. Sodium is at 140 with a potassium level of 5.3. Bicarb level is 32. Lactic acid level is at 1.9. Procalcitonin level was at 0.44. He is able to communicate. His breathing is labored and he desaturates with minimal work of activity. The patient remains on IV Solu-Medrol 60 mg every 6 hours. He was placed also empirically on a combination of Rocephin and Zithromax. On 06/20/2024, the patient is being seen for a follow-up. Remains hypoxic and this morning the patient is on Airvo at 60 L with an FiO2 of 90%. Current pulse ox in the order of 94%. A follow-up chest x-ray was also done and shows stable multifocal right lung infiltrate and ongoing dense infiltration in the left perihilar and left upper lobe along with some volume loss in the left lung. He is able to sit up in a chair. He continues to have chronic hoarseness. Denies having any interval worsening shortness of breath. Using incentive spirometer. White cell count is 9.6 with a hemoglobin 8.8 and a platelet count of 156. BUN is 29 with a creatinine of 0.7 and sodium levels at 137. Calcium level is not elevated at 9.0. Remains on Rocephin. Remains on IV Solu-Medrol. Remains on DuoNeb nebulized treatments [id number]. Rest of the medications are essentially unchanged. On 06/21/2024, the patient remains on Airvo and overall respiratory status and oxygenation has been unchanged. The patient remains on Airvo 60 L with an FiO2 of 90%. White cell count 16.8 with a hemoglobin of of 9.4 and a platelet count of 179. BUN 26 with a creatinine of 0.6. Voice remains hoarse as the patient is known to have chronic paralysis of the vocal cord. Remains on IV Solu-Medrol 60 mg per 6 hours. Remains on IV Rocephin. No new complaints otherwise for now. On 06/22/2024, the patient is being seen for a follow-up. Overall respiratory status is unchanged compared to yesterday the patient remains on Airvo 60 L with an FiO2 of 90% with a pulse ox of 96%. No sputum production. No chest pain. No interval worsening shortness of breath. White cell count at time of 9.1 and a platelet count of 161. CRP is at 4.4. Phosphorus of 4.4 with a magnesium of 2.4. Medication remain unchanged the patient remains on IV Solu-Medrol 60 mg every 6 hours. Remains on IV Rocephin on an empiric basis. Patient was seen and examined today on 06/23/2024, patient is about the same, still requiring Airvo, 90% and 60 L flow, O2 saturation remains marginal chest x-ray continues to show significant disease involving left lung and right lung patient remains on antibiotics and steroids, no major improvement noted his antibiotics remain Rocephin. Not much of a change in the last few days since admission.WBC count is 9.2 hemoglobin is 8.8 electrolytes are normal renal profile is normal, again her chest x-ray is worsening showing persistent left and right infiltrates Seen today on 06/24/2024, clinically the patient is about the same, remains on Airvo high flow and high FiO2 90% and 60 L, patient is comfortable, does not s eem to be in distress, however O2 saturation remains marginal, denies any cough or wheezing no fever no chills no hemoptysis, reviewed CT angiogram of the chest from this admission, which showed bilateral multifocal groundglass opacities involving both right lung and left lung, patient has been on antibiotics all along, and there has been no change patient is also on steroids just in case we are dealing with radiation pneumonitis. Patient is not a great candidate at this point to consider bronchoscopy and BAL, however if his condition gets worse that he needs to be intubated then I will definitely perform bronchoscopy and BAL and even possibly biopsy. Time I would recommend that we treat with bronchodilators, antibiotics, and steroids WBC count today is 13.7 hemoglobin is 9.5 basic metabolic profile is normal renal profile is normal Objective - Vital Signs Vital signs: Vital Signs Temp 97.7 F 06/24/24 12:00 Pulse 72 06/24/24 12:00 Resp 24 06/24/24 12:00 BP 143/70 06/24/24 12:00 Pulse Ox 97 06/24/24 12:00 FiO2 90 06/24/24 12:00 Intake & Output 06/23/24 06/24/24 06/24/24 18:59 06:59 18:59 Intake Total 250 260 180 Balance 250 260 180 Weight 84.7 kg 84.7 kg Intake: IV 10 20 Invasive Line 1 10 Invasive Line 2 20 Oral 240 240 180 Other: Voiding Method Bedside Commode Bedside Commode Urinal Urinal # Voids 1 2 # Bowel Movements 1 1 - Exam GENERAL EXAM: revealed 74-year-old white male in no distress on Airvo 90% and 60 L flow HEAD: Normocephalic and atraumatic EYES: Normal reaction of pupils, equal size. NOSE: Clear with pink turbinates. THROAT: No erythema or exudates. No white plaques or thrush. NECK: No masses, no JVD. CHEST: No chest wall deformity. Previous thoracotomy scar well-approximated LUNGS: Diminished breath sounds and crackles at the bases bilaterally. CVS: S1 and S2 normal with no audible murmur, regular rhythm. No extra heart sounds ABDOMEN: No hepatosplenomegaly, active bowel sounds, no guarding or rigidity. SKIN: No rashes CENTRAL NERVOUS SYSTEM: No focal deficits, tone is normal in all 4 extremities. EXTREMITIES: There is no peripheral edema, clubbing, or cyanosis. Peripheral pulses are intact. - Labs CBC & Chem 7: 06/24/24 07:55 06/24/24 07:55 Labs: Abnormal Lab Results - Last 24 Hours (Table) 06/24/24 06/24/24 Range/Units 07:55 07:55 WBC 13.7 H (3.8-10.6) k/uL RBC 3.17 L (4.30-5.90) m/uL Hgb 9.5 L (13.0-17.5) gm/dL Hct 30.0 L (39.0-53.0) % RDW 17.7 H (11.5-15.5) % Plt Count 124 L (150-450) k/uL Neutrophils # 13.0 H (1.3-7.7) k/uL Lymphocytes # 0.2 L (1.0-4.8) k/uL Carbon Dioxide 31 H (22-30) mmol/L BUN 29 H (9-20) mg/dL Glucose 170 H (74-99) mg/dL Magnesium 2.4 H (1.6-2.3) mg/dL Microbiology - Last 24 Hours (Table) 06/19/24 07:51 Sputum Culture - Final Sputum Assessment and Plan Assessment: Pression: Acute hypoxic respiratory failure, multifactorial, CT of the chest is quite concerning with significant worsening of his interstitial pneumonitis, wondering whether this could be related to his imfinzi presently on hold, and the patient is receiving steroids/Solu-Medrol 60 mg IV push every 6 hours other possibility would be radiation pneumonitis, however very unlikely to be affecting both lungs almost equally patient had radiation to the left lung, and this was less than 3 months ago. Actually was less than 2 months ago was his last radiation treatment another possibility would be concerned about lymphangitic carcinomatosis, and to make a diagnosis of this the patient will need bronchoscopy and BAL and even possibly biopsy patient is not in shape to consider this at this point. 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 Continue Solu-Medrol Check with the patient as to the last dose of Imfinzi that he took Continue Airvo and titrate accordingly Continue Solu-Medrol and bronchodilators Bronchoscopy to be considered however the patient is not the most ideal candidate for bronchoscopy with BAL and biopsy at this point. Prognosis is definitely guarded Will continue to follow Time with Patient: Less than 30
--- NOTE | 2024-06-24 14:28 | P.PN ---
Subjective Progress Note Date: 06/24/24 No new complaints today. No change to Airvo requirements over the last few days. Still desats with minimal exertion. Good appetite, having BMs. Gen: In NAD, non-toxic HEENT: normocephalic, atraumatic, hearing acuity is intant, mucous membranes moist CVS: perfusing all extremities well, no pitting edema, Respiratory: symmetric chest expansion, no accessory muscle use, GI: soft, NTTP, ND, : no suprapubic tenderness, no CVA tenderness MSK/Derm: no rashes, cyanosis Neuro: CN II-XII intact, no motor weakness, Psych: cooperative, euthymic mood, judgment and insight is intact Hospital Course: 74-year-old male with past medical history of pulmonary adenocarcinoma status post chemotherapy and radiation, hypertension, and BPH who presents to the ED with chief complaint of shortness of breath. He was admitted on 06/07 with similar complaint of exertional dyspnea and hypoxia. Pulmonology and oncology were following the patient during his hospital stay. Patient was started on bronchodilators, Solu-Medrol, and IV antibiotics. Recent chest CT showed developing groundglass opacities and infiltrate with consolidation in the left upper lobe and left perihilar region. Patient's respiratory status improved and he was discharged home with oxygen and a nebulizer, and steroid course. Vitals on admission temperature 97.7, pulse 78 bpm, respiratory rate 20, blood pressure 96/52, O2 saturation 92% on 7 L nasal cannula which was escalated to 10 L high flow and saturation was improved to 94%. EKG as sinus rhythm with ventricular rate of 78 bpm and QTc of 422 ms. CXR shows bilateral lung in filtrates greater on the left. Recent chest CT showed developing groundglass opacities and infiltrate with consolidation in the left upper lobe and left perihilar region. Labs on admission show WBC 8.8, hemoglobin 9.3, platelets 152. PT 12.5, INR 1.2, PTT 21.6. Sodium 134, potassium 4.9, chloride 98, bicarb 27, BUN 31, creatinine 0.85, glucose 171. Lactate 2.1. NT proBNP 646. Troponin negative. Patient started on IV steroids, IV antibiotics, bronchodilators. Also on Airvo. Pulmonology and oncology following. Assessment and Plan: Patient is severely ill, needs close monitoring. Prognosis guarded. Active: Acute on chronic hypoxic respiratory failure likely secondary to radiation pneumonitis Pulmonary adenocarcinoma Acute COPD exacerbation Pneumonia with low procalcitonin Lactic acidosis, likely secondary to hypoxia -Pulmonology following, on IV Solu-Medrol 60 mg every 6 hours, DuoNebs 4 times daily -Azithromycin 500 mg IV daily completed, ceftriaxone 1 g IV every 24 hours per oncology for 7 days today (day 12/15), recommend discontinuation, deferred to oncology -Sputum cultures negative -Continue wean oxygen, currently on Airvo History of hypertension -Hold amlodipine, losartan, hydrochlorothiazide as patient was slightly hypotensive initially -Okay to continue metoprolol 50 nightly Chronic normocytic anemia -Continue to monitor, no active bleeding Mild hyponatremia, resolved Mild hyperkalemia, improved -improved with beta agonist inhalers -Repeat labs tomorrow Chronic: GERD BPH Depression/anxiety DVT ppx: Lovenox Code status: Full code Anticipated discharge place: Pending clinical course Anticipated discharge time: Pending clinical course Objective - Vital Signs Vital signs: Vital Signs Temp 97.7 F 06/24/24 12:00 Pulse 72 06/24/24 12:00 Resp 24 06/24/24 12:00 BP 143/70 06/24/24 12:00 Pulse Ox 97 06/24/24 12:00 FiO2 90 06/24/24 12:00 Intake & Output 06/23/24 06/24/24 06/24/24 18:59 06:59 18:59 Intake Total 250 260 180 Balance 250 260 180 Weight 84.7 kg 84.7 kg Intake: IV 10 20 Invasive Line 1 10 Invasive Line 2 20 Oral 240 240 180 Other: Voiding Method Bedside Commode Bedside Commode Urinal Urinal # Voids 1 2 # Bowel Movements 1 1 - Labs CBC & Chem 7: 06/24/24 07:55 06/24/24 07:55 Labs: Abnormal Lab Results - Last 24 Hours (Table) 06/24/24 06/24/24 Range/Units 07:55 07:55 WBC 13.7 H (3.8-10.6) k/uL RBC 3.17 L (4.30-5.90) m/uL Hgb 9.5 L (13.0-17.5) gm/dL Hct 30.0 L (39.0-53.0) % RDW 17.7 H (11.5-15.5) % Plt Count 124 L (150-450) k/uL Neutrophils # 13.0 H (1.3-7.7) k/uL Lymphocytes # 0.2 L (1.0-4.8) k/uL Carbon Dioxide 31 H (22-30) mmol/L BUN 29 H (9-20) mg/dL Glucose 170 H (74-99) mg/dL Magnesium 2.4 H (1.6-2.3) mg/dL Microbiology - Last 24 Hours (Table) 06/19/24 07:51 Sputum Culture - Final Sputum
--- NOTE | 2024-06-24 15:23 | P.PN ---
Subjective Progress Note Date: 06/24/24 Principal diagnosis: Hypoxia. S/P treatment for NSCLC In follow-up today patient is in chair, his O2 saturation drops into the 70's with any activity, no decrease in O2 flow/needs today. He denies any fevers, nausea, vomiting, chest pain, mild swelling in the feet. Objective - Vital Signs Vital signs: Vital Signs Temp 97.7 F 06/24/24 12:00 Pulse 72 06/24/24 12:00 Resp 24 06/24/24 12:00 BP 143/70 06/24/24 12:00 Pulse Ox 97 06/24/24 12:00 FiO2 90 06/24/24 12:00 Intake & Output 06/23/24 06/24/24 06/24/24 18:59 06:59 18:59 Intake Total 250 260 360 Balance 250 260 360 Weight 84.7 kg 84.7 kg Intake: IV 10 20 Invasive Line 1 10 Invasive Line 2 20 Oral 240 240 360 Other: Voiding Method Bedside Commode Bedside Commode Urinal Urinal # Voids 1 2 # Bowel Movements 1 1 - Constitutional General appearance: Present: average body habitus, cooperative, mild distress - EENT Eyes: Present: anicteric sclerae, EOMI ENT: Present: hearing grossly normal, normal oropharynx - Respiratory Respiratory: left: diminished, bilateral: rales - Cardiovascular Rhythm: regular Heart sounds: normal: S1, S2 Abnormal Heart Sounds: Absent: systolic murmur, diastolic murmur, rub, S3 Gallop, S4 Gallop, click, other - Peripheral edema foot Peripheral Edema: bilateral: Trace - Gastrointestinal General gastrointestinal: Present: normal bowel sounds, soft - Integumentary Integumentary: Present: pale - Neurologic Neurologic: Present: CNII-XII intact - Musculoskeletal Musculoskeletal: Present: generalized weakness, strength equal bilaterally - Psychiatric Psychiatric: Present: A&O x's 3, appropriate affect, intact judgment & insight - Labs CBC & Chem 7: 06/24/24 07:55 06/24/24 07:55 Labs: Abnormal Lab Results - Last 24 Hours (Table) 06/24/24 06/24/24 Range/Units 07:55 07:55 WBC 13.7 H (3.8-10.6) k/uL RBC 3.17 L (4.30-5.90) m/uL Hgb 9.5 L (13.0-17.5) gm/dL Hct 30.0 L (39.0-53.0) % RDW 17.7 H (11.5-15.5) % Plt Count 124 L (150-450) k/uL Neutrophils # 13.0 H (1.3-7.7) k/uL Lymphocytes # 0.2 L (1.0-4.8) k/uL Carbon Dioxide 31 H (22-30) mmol/L BUN 29 H (9-20) mg/dL Glucose 170 H (74-99) mg/dL Magnesium 2.4 H (1.6-2.3) mg/dL Microbiology - Last 24 Hours (Table) 06/19/24 07:51 Sputum Culture - Final Sputum - Imaging and Cardiology Chest x-ray: report reviewed Assessment and Plan (1) Acute hypoxemic respiratory failure Current Visit: Yes Status: Acute Priority: High Code(s): J96.01 - ACUTE RESPIRATORY FAILURE WITH HYPOXIA SNOMED Code(s): 794510837 (2) Adenocarcinoma, lung Current Visit: Yes Status: Acute Priority: Medium Code(s): C34.90 - MALIGNANT NEOPLASM OF UNSP PART OF UNSP BRONCHUS OR LUNG SNOMED Code(s): 770606821 Plan: Acute hypoxemic respiratory failure -Pulmonary is following. -Underlying cause differentials including COPD exacerbation versus radiation pneumonitis +/- pneumonia. Pulmonary following with patient. -Checks x-ray today, no reported new findings. -Respiratory status stable, O2 needs remain unchanged -Discussed case with Pulm MIRIAM. [place] pt was a little better today. Plan is to continue treatments as prescribed. Wanting to avoid bronchoscopy with poor resp status, intubation would likely be inevitable. Pulmonary following, agree with their plan Non-small cell lung cancer -Patient is status post surgery, he completed adjuvant chemo (carbo/alimta) no immunotherapy was given. He completed radiation 04/23. Maintenance immunotherapy x1 year has been pending start-pt has never received a dose of immunotherapy -All treatment will be on hold until patient has adequately and completely recovered from his current illness. Mild anemia and thrombocytopenia -Likely prolonged chemotherapy effects and acute illness. -Transfuse for hemoglobin less than 7 or if patient is symptomatic-take into consideration fluid status. Pt Hgb stable at this time 9.5 -Platelets 124,000, stable. Okay for anticoagulation and antiplatelet therapies if needed. Cont DVT prophylaxis. - Leukocytosis -Recurrent, mostly neutrophilia -Pt has been on steroids since the 8th with fluctuation of WBC, may be r/t steroids. Stress or infectious process? VSS. Cont to monitor, additional labs, cultures as felt needed.
[2024-06-25 07:27] LABS: Anisocytosis Slight; Basophils % (A) 0 %; Eosinophils % (A) 0 %; HCT 29.1 % (39.0-53.0); HGB 9.3 gm/dL (13.0-17.5); Hypochromasia Moderate; Lymphocytes # (A) 0.2 k/uL (1.0-4.8); Lymphocytes % (A) 2 %; MCH 30.4 pg (25.0-35.0); Mean Platelet Volume 9.3; Monocytes # (A) 0.5 k/uL (0-1.0); Monocytes % (A) 5 %; Neutrophils # (A) 10.6 k/uL (1.3-7.7); Neutrophils % (A) 93 %; Platelet Count 110 k/uL (150-450); Poikilocytosis Slight; RBC 3.07 m/uL (4.30-5.90); RDW 17.6 % (11.5-15.5); WBC 11.3 k/uL (3.8-10.6)
[2024-06-25 07:38] LABS: African American GFR (CKD) >90 (>60 ml/min/1.73 sqM); Anion Gap 5 mmol/L; Blood Urea Nitrogen 29 mg/dL (9-20); Carbon Dioxide 34 mmol/L (22-30); Chloride 96 mmol/L (98-107); Glucose 133 mg/dL (74-99); Magnesium 2.3 mg/dL (1.6-2.3); Non-African American GFR(CKD) >90 (>60 ml/min/1.73 sqM); Potassium 5.1 mmol/L (3.5-5.1); Sodium 135 mmol/L (137-145)
--- NOTE | 2024-06-25 16:00 | P.PN ---
Subjective Progress Note Date: 06/25/24 Principal diagnosis: Acute hypoxic respiratory failure, multifactorial Patient is a 74-year-old male with past medical history significant for stage III pulmonary adenocarcinoma. He is status post left upper lobectomy with mediastinal lymph node dissection done back in November,. Subsequently, started on chemotherapy and radiation therapy. His oncologist is Dr. Zamora. L ast dose of chemotherapy was April,. He follows with Dr. Lancaster for radiation treatments. Last radiation treatment was May 24, 2024. Of note, patient recently admitted and discharged June 12. 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 Procalcitonin level was low. He was discharged on home oxygen and oral steroids. Patient states that his breathing never really returned to baseline. He is severely short of breath with minimal exertion such as getting up to the bathroom. His is at bedside, states his oxygen drops as low as 50%. She brought him to the emergency department for evaluation yesterday evening. He is currently being evaluated in ER, room 11. He is on 10 L high flow nasal cannula. He is awake and alert and no signs of CO2 narcosis. Nondistressed. Nontachypneic. No accessory muscle use. He states he has a persistent cough that is congested with minimal to no sputum production. Denies any fevers, chills, chest pain, hemoptysis. Denies any sick contacts. He has been generally weak, and lost an additional 10 pounds over the last month or so. Appetite has been poor. Most recent chest CT done on his recent admission showing diffuse bilateral groundglass opacities, and postsurgical changes in the left lung. No enlarging mediastinal or hilar adenopathy. Chest x-ray that was done last night on his readmission to the hospital continues to show bilateral lung infiltrates greater on the left, left upper portion may be slightly improved. CBC is unremarkable for leukocytosis. Hemoglobin stable at 9.4 g/dL. Platelets 158. Previous procalcitonin level 0.34 and repeat is pending. CMP: Sodium 134, potassium 4.9, chloride 98, serum bicarb 27, BUN 31, creatinine 0.5, glucose 171. Lactic 2.1. Is unremarkable. Troponin 0.012. NT proBNP not significantly elevated, 646. Current vitals: Temperature 98.5 F, heart rate 74 bpm, blood pressure 98/67 mmHg, nontachypneic, SpO2 is 94% on 10 L high flow nasal cannula. On 06/19/2024, the patient is being seen for a follow-up. The patient remains hypoxic and the patient was placed on Airvo 60 L with an FiO2 of 65%. A follow- up CAT scan of the chest was obtained on 06/18/2024 and there is no evidence of any pulmonary embolism. Of significance is development of bilateral multifocal groundglass pulmonary opacities with organizing changes in the left lung. The groundglass opacities slightly were more prominent compared to the earlier CAT scan especially on the right. Left lung findings are essentially stable. There is also mild to moderate central left-sided bronchiectatic changes. The patient remains afebrile. White cell count is 8.7. Hemoglobin is 8.6. Sodium is at 140 with a potassium level of 5.3. Bicarb level is 32. Lactic acid level is at 1.9. Procalcitonin level was at 0.44. He is able to communicate. His breathing is labored and he desaturates with minimal work of activity. The patient remains on IV Solu-Medrol 60 mg every 6 hours. He was placed also empirically on a combination of Rocephin and Zithromax. On 06/20/2024, the patient is being seen for a follow-up. Remains hypoxic and this morning the patient is on Airvo at 60 L with an FiO2 of 90%. Current pulse ox in the order of 94%. A follow-up chest x-ray was also done and shows stable multifocal right lung infiltrate and ongoing dense infiltration in the left perihilar and left upper lobe along with some volume loss in the left lung. He is able to sit up in a chair. He continues to have chronic hoarseness. Denies having any interval worsening shortness of breath. Using incentive spirometer. White cell count is 9.6 with a hemoglobin 8.8 and a platelet count of 156. BUN is 29 with a creatinine of 0.7 and sodium levels at 137. Calcium level is not elevated at 9.0. Remains on Rocephin. Remains on IV Solu-Medrol. Remains on DuoNeb nebulized treatments [id number]. Rest of the medications are essentially unchanged. On 06/21/2024, the patient remains on Airvo and overall respiratory status and oxygenation has been unchanged. The patient remains on Airvo 60 L with an FiO2 of 90%. White cell count 16.8 with a hemoglobin of of 9.4 and a platelet count of 179. BUN 26 with a creatinine of 0.6. Voice remains hoarse as the patient is known to have chronic paralysis of the vocal cord. Remains on IV Solu-Medrol 60 mg per 6 hours. Remains on IV Rocephin. No new complaints otherwise for now. On 06/22/2024, the patient is being seen for a follow-up. Overall respiratory status is unchanged compared to yesterday the patient remains on Airvo 60 L with an FiO2 of 90% with a pulse ox of 96%. No sputum production. No chest pain. No interval worsening shortness of breath. White cell count at time of 9.1 and a platelet count of 161. CRP is at 4.4. Phosphorus of 4.4 with a magnesium of 2.4. Medication remain unchanged the patient remains on IV Solu-Medrol 60 mg every 6 hours. Remains on IV Rocephin on an empiric basis. Patient was seen and examined today on 06/23/2024, patient is about the same, still requiring Airvo, 90% and 60 L flow, O2 saturation remains marginal chest x-ray continues to show significant disease involving left lung and right lung patient remains on antibiotics and steroids, no major improvement noted his antibiotics remain Rocephin. Not much of a change in the last few days since admission.WBC count is 9.2 hemoglobin is 8.8 electrolytes are normal renal profile is normal, again her chest x-ray is worsening showing persistent left and right infiltrates Seen today on 06/24/2024, clinically the patient is about the same, remains on Airvo high flow and high FiO2 90% and 60 L, patient is comfortable, does not s eem to be in distress, however O2 saturation remains marginal, denies any cough or wheezing no fever no chills no hemoptysis, reviewed CT angiogram of the chest from this admission, which showed bilateral multifocal groundglass opacities involving both right lung and left lung, patient has been on antibiotics all along, and there has been no change patient is also on steroids just in case we are dealing with radiation pneumonitis. Patient is not a great candidate at this point to consider bronchoscopy and BAL, however if his condition gets worse that he needs to be intubated then I will definitely perform bronchoscopy and BAL and even possibly biopsy. Time I would recommend that we treat with bronchodilators, antibiotics, and steroids WBC count today is 13.7 hemoglobin is 9.5 basic metabolic profile is normal renal profile is normal Patient was evaluated today on 06/25/2024, remains the same, remains on Airvo, not much of a change except FiO2 went down to 85% and flow remained at 60 L. Patient continues to have shortness of breath with any activity. WBC count is 11.3 hemoglobin 9.3 electrolytes are normal BUN is 29 creatinine 0.63 chest x- ray from few days ago showed persistent left and right sided infiltrates, no major change noted since admission. Objective - Vital Signs Vital signs: Vital Signs Temp 98.0 F 06/25/24 07:55 Pulse 86 06/25/24 15:42 Resp 16 06/25/24 11:15 BP 149/77 06/25/24 11:15 Pulse Ox 99 06/25/24 11:15 FiO2 85 06/25/24 11:56 Intake & Output 06/24/24 06/25/24 06/25/24 18:59 06:59 18:59 Intake Total 360 480 Balance 360 480 Weight 84.7 kg 85.4 kg Intake: Oral 360 480 Other: Voiding Method Bedside Commode Bedside Commode Urinal Urinal # Voids 2 1 1 # Bowel Movements 1 - Exam GENERAL EXAM: revealed 74-year-old white male in no distress on Airvo 85% and 60 L flow, extremely pleasant HEAD: Normocephalic and atraumatic EYES: Normal reaction of pupils, equal size. NOSE: Clear with pink turbinates. THROAT: No erythema or exudates. No white plaques or thrush. NECK: No masses, no JVD. CHEST: No chest wall deformity. Previous thoracotomy scar well-approximated LUNGS: Minimal crackles at the bases no rhonchi no wheezes CVS: S1 and S2 normal with no audible murmur, regular rhythm. No extra heart sounds ABDOMEN: No hepatosplenomegaly, active bowel sounds, no guarding or rigidity. SKIN: No rashes CENTRAL NERVOUS SYSTEM: No focal deficits, tone is normal in all 4 extremities. EXTREMITIES: There is no peripheral edema, clubbing, or cyanosis. Peripheral pulses are intact. - Labs CBC & Chem 7: 06/25/24 05:57 06/25/24 05:57 Labs: Abnormal Lab Results - Last 24 Hours (Table) 06/25/24 06/25/24 Range/Units 05:57 05:57 WBC 11.3 H (3.8-10.6) k/uL RBC 3.07 L (4.30-5.90) m/uL Hgb 9.3 L (13.0-17.5) gm/dL Hct 29.1 L (39.0-53.0) % RDW 17.6 H (11.5-15.5) % Plt Count 110 L (150-450) k/uL Neutrophils # 10.6 H (1.3-7.7) k/uL Lymphocytes # 0.2 L (1.0-4.8) k/uL Sodium 135 L (137-145) mmol/L Chloride 96 L (98-107) mmol/L Carbon Dioxide 34 H (22-30) mmol/L BUN 29 H (9-20) mg/dL Creatinine 0.63 L (0.66-1.25) mg/dL Glucose 133 H (74-99) mg/dL Assessment and Plan Assessment: Pression: Acute hypoxic respiratory failure, multifactorial, CT of the chest is quite concerning with significant worsening of his interstitial pneumonitis, wondering whether this could be related to his imfinzi presently on hold, and the patient is receiving steroids/Solu-Medrol 60 mg IV push every 6 hours other possibility would be radiation pneumonitis, however very unlikely to be affecting both lungs almost equally patient had radiation to the left lung, and this was less than 3 months ago. Actually was less than 2 months ago was his last radiation treatment another possibility would be concerned about lymphangitic carcinomatosis, and to make a diagnosis of this the patient will need bronchoscopy and BAL and even possibly biopsy patient is not in shape to consider this at this point. Acute exacerbation of COPD, on bronchodilators Pulmonary adenocarcinoma with previous left upper lobectomy on 11/14/2023 with complicated postoperative course with postoperative staging of T2 N2 disease, genetic sequencing showed no evidence of any targetable mutation patient is status post chemotherapy completed on 03/31, patient was supposed to go on durvalumab for a total of 1 year, however according to the patient and this was never given. 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 Continue Solu-Medrol Patient never received Imfinzi according to him and according to at bedside Continue Airvo and titrate accordingly Continue Solu-Medrol and bronchodilators Bronchoscopy to be considered however the patient is not the most ideal candidate for bronchoscopy with BAL and biopsy at this point. Prognosis is definitely guarded Will continue to follow Time with Patient: Less than 30
--- NOTE | 2024-06-25 17:22 | P.PN ---
Subjective Progress Note Date: 06/25/24 Patient was seen and examined. On 65L Airvo FiO2 85%. Feels winded with little exertion. at bedside. Seen with Dr. Davidson. CBC and BMP significant for WBC 11.3, RBC 3.07, Hg 9.3, Hct 29.1, Plt 110, Na 135, Cl 96, bicarb 34, BUN 29, Cr 0.63, glu 133. Mag 2.3. General: non toxic, no distress, appears at stated age Derm: warm, dry Head: atraumatic, normocephalic, symmetric Eyes: EOMI, no lid lag, anicteric sclera Mouth: no lip lesion, mucus membranes moist Cardiovascular: S1S2 reg, no murmur Lungs: Decreased BS bilateral, no rhonchi, no rales , no accessory muscle use Ext: no gross muscle atrophy, no edema, no contractures Neuro: no focal neuro deficits Psych: Alert, oriented, appropriate affect Based on my assessment of this patient, this patient meets a high complexity level of care. Acute on chronic hypoxic respiratory failure likely secondary to radiation pneumonitis Pulmonary adenocarcinoma Acute COPD exacerbation Pneumonia with low procalcitonin Lactic acidosis, likely secondary to hypoxia History of hypertension Chronic normocytic anemia GERD BPH Depression/anxiety Continue DuoNeb QID scheduled, SoluMedrol 60 mg IV Q6H. Discussed with Dr. Davidson, consideration for bronchoscopy but patient unlikely to come off the vent. Supplemental O2 to maintain O2 sat > 92%. Prognosis is guarded. CODE STATUS: FULL CODE DVT Prophylaxis: Lovenox SQ GI Prophylaxis: Protonix PO Designated medical POA if patient is not able to make medical decisions for themselves: I have reviewed the following merchandising consultant notes: Pulmonary, Oncology. I have reviewed the results of the following tests: CBC, BMP, Mag. I have ordered the following tests: I have discussed the care of this patient with the following independent historian: . I have independently interpreted the following test below: I have discussed the management of this patient with the following physician: Ariela GARCIA and Dr. Davidson. Objective - Vital Signs Vital signs: Vital Signs Temp 98.0 F 06/25/24 07:55 Pulse 86 06/25/24 15:42 Resp 16 06/25/24 11:15 BP 149/77 06/25/24 11:15 Pulse Ox 99 06/25/24 11:15 FiO2 85 01/15/25 11:56 Intake & Output 06/24/24 06/25/24 06/25/24 18:59 06:59 18:59 Intake Total 360 480 Balance 360 480 Weight 84.7 kg 85.4 kg Intake: Oral 360 480 Other: Voiding Method Bedside Commode Bedside Commode Urinal Urinal # Voids 2 1 1 # Bowel Movements 1 - Labs CBC & Chem 7: 06/25/24 05:57 06/25/24 05:57 Labs: Abnormal Lab Results - Last 24 Hours (Table) 06/25/24 06/25/24 Range/Units 05:57 05:57 WBC 11.3 H (3.8-10.6) k/uL RBC 3.07 L (4.30-5.90) m/uL Hgb 9.3 L (13.0-17.5) gm/dL Hct 29.1 L (39.0-53.0) % RDW 17.6 H (11.5-15.5) % Plt Count 110 L (150-450) k/uL Neutrophils # 10.6 H (1.3-7.7) k/uL Lymphocytes # 0.2 L (1.0-4.8) k/uL Sodium 135 L (137-145) mmol/L Chloride 96 L (98-107) mmol/L Carbon Dioxide 34 H (22-30) mmol/L BUN 29 H (9-20) mg/dL Creatinine 0.63 L (0.66-1.25) mg/dL Glucose 133 H (74-99) mg/dL
[2024-06-25] MEDS: ALPRAZolam 0.25 MG TAB PO PRN (18:09)
--- NOTE | 2024-06-25 18:33 | P.PN ---
Subjective Progress Note Date: 06/25/24 Principal diagnosis: Hypoxia. S/P treatment for NSCLC In follow-up today patient is in chair sleeping. He cont on airvo, FiO2 down to 85 today. He is not able to move without significant drop in saturation. No documented fevers, emesis. Pt denies any pain Objective - Vital Signs Vital signs: Vital Signs Temp 98.0 F 06/25/24 07:55 Pulse 80 06/25/24 12:09 Resp 16 06/25/24 11:15 BP 149/77 06/25/24 11:15 Pulse Ox 99 06/25/24 11:15 FiO2 85 06/25/24 11:56 Intake & Output 06/24/24 06/25/24 06/25/24 18:59 06:59 18:59 Intake Total 360 480 Balance 360 480 Weight 84.7 kg 85.4 kg Intake: Oral 360 480 Other: Voiding Method Bedside Commode Bedside Commode Urinal Urinal # Voids 2 1 1 # Bowel Movements 1 - Constitutional General appearance: Present: average body habitus, cooperative, mild distress - EENT Eyes: Present: anicteric sclerae, EOMI ENT: Present: hearing grossly normal - Respiratory Respiratory: bilateral: diminished, rales (scattered) - Cardiovascular Rhythm: regular Heart sounds: normal: S1, S2 Abnormal Heart Sounds: Absent: systolic murmur, diastolic murmur, rub, S3 Gallop, S4 Gallop, click, other - Peripheral edema leg Peripheral Edema: bilateral: 1+, Pitting - Gastrointestinal General gastrointestinal: Present: soft - Neurologic Neurologic: Present: CNII-XII intact - Musculoskeletal Musculoskeletal: Present: generalized weakness - Psychiatric Psychiatric: Present: A&O x's 3, appropriate affect, intact judgment & insight - Labs CBC & Chem 7: 06/25/24 05:57 06/25/24 05:57 Labs: Abnormal Lab Results - Last 24 Hours (Table) 06/25/24 06/25/24 Range/Units 05:57 05:57 WBC 11.3 H (3.8-10.6) k/uL RBC 3.07 L (4.30-5.90) m/uL Hgb 9.3 L (13.0-17.5) gm/dL Hct 29.1 L (39.0-53.0) % RDW 17.6 H (11.5-15.5) % Plt Count 110 L (150-450) k/uL Neutrophils # 10.6 H (1.3-7.7) k/uL Lymphocytes # 0.2 L (1.0-4.8) k/uL Sodium 135 L (137-145) mmol/L Chloride 96 L (98-107) mmol/L Carbon Dioxide 34 H (22-30) mmol/L BUN 29 H (9-20) mg/dL Creatinine 0.63 L (0.66-1.25) mg/dL Glucose 133 H (74-99) mg/dL Assessment and Plan (1) Acute hypoxemic respiratory failure Current Visit: Yes Status: Acute Priority: High Code(s): J96.01 - ACUTE RESPIRATORY FAILURE WITH HYPOXIA SNOMED Code(s): 635638785 (2) Adenocarcinoma, lung Current Visit: Yes Status: Acute Priority: Medium Code(s): C34.90 - MALIGNANT NEOPLASM OF UNSP PART OF UNSP BRONCHUS OR LUNG SNOMED Code(s): 834381127 Plan: Acute hypoxemic respiratory failure -Underlying cause differentials including COPD exacerbation versus radiation pneumonitis +/- pneumonia. Also possibility of atypical infection or lympha ngetic spread of malignancy. -Respiratory status stable, FiO2 is being decreased, pt not able to move without drop in O2 saturation so far. -If pt does not improve, may have to consider bronch to get biopsy to see if underlying cause for persistent hypoxemia and resp failure. It would be a risk as Pulm has noted. It would be up to pt and if they want to take that risk to see if an answer can be found. -Will see how pt does and keep in touch with Pulmonary and what they think. Non-small cell lung cancer -Patient is status post surgery, he completed adjuvant chemo (carbo/alimta) no immunotherapy was given. He completed radiation 04/23. Maintenance immunotherapy x1 year has been pending start-pt has never received a dose of immunotherapy -No treatment plans at this time Mild anemia and thrombocytopenia -Hx of chemo exacerbated by acute illness. -Transfuse for hemoglobin less than 7 or if patient is symptomatic-take into consideration fluid status. Pt Hgb stable at this time 9.3 -Platelets 110,000, stable. Okay for anticoagulation and antiplatelet therapies if needed. Cont DVT prophylaxis. - Leukocytosis -Recurrent, mostly neutrophilia. Stable today -Pt has been on steroids since the 8th with fluctuation of WBC, may be r/t steroids. Stress or infectious process? VSS. Cont to monitor, additional labs, cultures as felt needed.
--- NOTE | 2024-06-26 13:52 | P.PN ---
Subjective Progress Note Date: 06/26/24 Patient is a 74-year-old male with past medical history significant for stage III pulmonary adenocarcinoma. He is status post left upper lobectomy with mediastinal lymph node dissection done back in November,. Subsequently, started on chemotherapy and radiation therapy. His oncologist is Dr. Zamora. Last dose of chemotherapy was April,. He follows with Dr. Lancaster for radiation treatments. Last radiation treatment was May 24, 2024. Of note, patient recently admitted and discharged June 12. 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 Procalcitonin level was low. He was discharged on home oxygen and oral steroids. Patient states that his breathing never really returned to baseline. He is severely short of breath with minimal exertion such as getting up to the bathroom. His is at bedside, states his oxygen drops as low as 50%. She brought him to the emergency department for evaluation yesterday evening. He is currently being evaluated in ER, room 11. He is on 10 L high flow nasal cannula. He is awake and alert and no signs of CO2 narcosis. Nondistressed. Nontachypneic. No accessory muscle use. He states he has a persistent cough that is congested with minimal to no sputum production. Denies any fevers, chills, chest pain, hemoptysis. Denies any sick contacts. He has been generally weak, and lost an additional 10 pounds over the last month or so. Appetite has been poor. Most recent chest CT done on his recent admission showing diffuse bilateral groundglass opacities, and postsurgical changes in the left lung. No enlarging mediastinal or hilar adenopathy. Chest x-ray that was done last night on his readmission to the hospital continues to show bilateral lung infiltrates greater on the left, left upper portion may be slightly improved. CBC is unremarkable for leukocytosis. Hemoglobin stable at 9.4 g/dL. Platelets 158. Previous procalcitonin level 0.34 and repeat is pending. CMP: Sodium 134, potassium 4.9, chloride 98, serum bicarb 27, BUN 31, creatinine 0.5, glucose 171. Lactic 2.1. Is unremarkable. Troponin 0.012. NT proBNP not significantly elevated, 646. Current vitals: Temperature 98.5 F, heart rate 74 bpm, blood pressure 98/67 mmHg, nontachypneic, SpO2 is 94% on 10 L high flow nasal cannula. On 06/19/2024, the patient is being seen for a follow-up. The patient remains hypoxic and the patient was placed on Airvo 60 L with an FiO2 of 65%. A follow- up CAT scan of the chest was obtained on 06/18/2024 and there is no evidence of any pulmonary embolism. Of significance is development of bilateral multifocal groundglass pulmonary opacities with organizing changes in the left lung. The groundglass opacities slightly were more prominent compared to the earlier CAT scan especially on the right. Left lung findings are essentially stable. There is also mild to moderate central left-sided bronchiectatic changes. The patient remains afebrile. White cell count is 8.7. Hemoglobin is 8.6. Sodium is at 140 with a potassium level of 5.3. Bicarb level is 32. Lactic acid level is at 1.9. Procalcitonin level was at 0.44. He is able to communicate. His breathing is labored and he desaturates with minimal work of activity. The patient remains on IV Solu-Medrol 60 mg every 6 hours. He was placed also empirically on a combination of Rocephin and Zithromax. On 06/20/2024, the patient is being seen for a follow-up. Remains hypoxic and this morning the patient is on Airvo at 60 L with an FiO2 of 90%. Current pulse ox in the order of 94%. A follow-up chest x-ray was also done and shows stable multifocal right lung infiltrate and ongoing dense infiltration in the left perihilar and left upper lobe along with some volume loss in the left lung. He is able to sit up in a chair. He continues to have chronic hoarseness. Denies having any interval worsening shortness of breath. Using incentive spirometer. White cell count is 9.6 with a hemoglobin 8.8 and a platelet count of 156. BUN is 29 with a creatinine of 0.7 and sodium levels at 137. Calcium level is not elevated at 9.0. Remains on Rocephin. Remains on IV Solu-Medrol. Remains on DuoNeb nebulized treatments [id number]. Rest of the medications are essentially unchanged. On 06/21/2024, the patient remains on Airvo and overall respiratory status and oxygenation has been unchanged. The patient remains on Airvo 60 L with an FiO2 of 90%. White cell count 16.8 with a hemoglobin of of 9.4 and a platelet count of 179. BUN 26 with a creatinine of 0.6. Voice remains hoarse as the patient is known to have chronic paralysis of the vocal cord. Remains on IV Solu-Medrol 60 mg per 6 hours. Remains on IV Rocephin. No new complaints otherwise for now. On 06/22/2024, the patient is being seen for a follow-up. Overall respiratory status is unchanged compared to yesterday the patient remains on Airvo 60 L with an FiO2 of 90% with a pulse ox of 96%. No sputum production. No chest pain. No interval worsening shortness of breath. White cell count at time of 9.1 and a platelet count of 161. CRP is at 4.4. Phosphorus of 4.4 with a magnesium of 2.4. Medication remain unchanged the patient remains on IV Solu-Medrol 60 mg every 6 hours. Remains on IV Rocephin on an empiric basis. Patient was seen and examined today on 06/23/2024, patient is about the same, still requiring Airvo, 90% and 60 L flow, O2 saturation remains marginal chest x-ray continues to show significant disease involving left lung and right lung patient remains on antibiotics and steroids, no major improvement noted his antibiotics remain Rocephin. Not much of a change in the last few days since admission.WBC count is 9.2 hemoglobin is 8.8 electrolytes are normal renal profile is normal, again her chest x-ray is worsening showing persistent left and right infiltrates Seen today on 06/24/2024, clinically the patient is about the same, remains on Airvo high flow and high FiO2 90% and 60 L, patient is comfortable, does not seem to be in distress, however O2 saturation remains marginal, denies any cough or wheezing no fever no chills no hemoptysis, reviewed CT angiogram of the chest from this admission, which showed bilateral multifocal groundglass opacities involving both right lung and left lung, patient has been on antibiotics all along, and there has been no change patient is also on steroids just in case we are dealing with radiation pneumonitis. Patient is not a great candidate at this point to consider bronchoscopy and BAL, however if his condition gets worse that he needs to be intubated then I will definitely perform bronchoscopy and BAL and even possibly biopsy. Time I would recommend that we treat with bronchodilators, antibiotics, and steroids WBC count today is 13.7 hemoglobin is 9.5 basic metabolic profile is normal renal profile is normal Patient was evaluated today on 06/25/2024, remains the same, remains on Airvo, not much of a change except FiO2 went down to 85% and flow remained at 60 L. Patient continues to have shortness of breath with any activity. WBC count is 11.3 hemoglobin 9.3 electrolytes are normal BUN is 29 creatinine 0.63 chest x- ray from few days ago showed persistent left and right sided infiltrates, no major change noted since admission. The patient is seen today June 26, 2024 in follow-up on the selective care unit. He is currently sitting up in a chair at the bedside. Awake and alert in no acute distress. He is still requiring Airvo high flow oxygen at 60 L and 85% FiO2 with O2 saturations in the 90s. Sputum culture revealed no growth. White count 11.3. Hemoglobin 9.3. Platelets 110. Sodium 135. Potassium 5.1. Bicarb 34. BUN 29. Creatinine 0.63. Glucose 133. He remains on DuoNeb inhalations, Solu-Medrol. Lovenox for DVT prophylaxis. Xanax for anxiety. Objective - Vital Signs Vital signs: Vital Signs Temp 97.9 F 06/26/24 08:35 Pulse 74 06/26/24 11:57 Resp 18 06/26/24 08:35 BP 128/75 06/26/24 08:35 Pulse Ox 100 06/26/24 11:45 FiO2 85 06/26/24 11:45 Intake & Output 06/25/24 06/26/24 06/26/24 18:59 06:59 18:59 Intake Total 660 100 240 Output Total 400 900 Balance 660 -300 -660 Weight 85.5 kg Intake: Oral 660 100 240 Output: Urine 400 900 Other: Voiding Method Bedside Commode Bedside Commode Bedside Commode Urinal Urinal Urinal # Voids 1 1 # Bowel Movements 1 1 - Exam GENERAL EXAM: A very pleasant 74-year-old male, sitting up in a chair, in no acute distress, on Airvo 85% and 60 L flow. HEAD: Normocephalic and atraumatic EYES: Normal reaction of pupils, equal size. NOSE: Clear with pink turbinates. THROAT: No erythema or exudates. No white plaques or thrush. NECK: No masses, no JVD. CHEST: No chest wall deformity. Previous thoracotomy scar well-approximated LUNGS: Minimal crackles at the bases no rhonchi no wheezes CVS: S1 and S2 normal with no audible murmur, regular rhythm. No extra heart sounds ABDOMEN: No hepatosplenomegaly, active bowel sounds, no guarding or rigidity. SKIN: No rashes CENTRAL NERVOUS SYSTEM: No focal deficits, tone is normal in all 4 extremities. EXTREMITIES: There is no peripheral edema, clubbing, or cyanosis. Peripheral pulses are intact. - Labs CBC & Chem 7: 06/25/24 05:57 06/25/24 05:57 Assessment and Plan Assessment: Acute hypoxic respiratory failure, multifactorial, CT of the chest is quite concerning with significant worsening of his interstitial pneumonitis, wondering whether this could be related to his imfinzi presently on hold, and the patient is receiving steroids/Solu-Medrol 60 mg IV push every 6 hours other possibility would be radiation pneumonitis, however very unlikely to be affecting both lungs almost equally patient had radiation to the left lung, and this was less than 3 months ago. Actually was less than 2 months ago was his last radiation treatment another possibility would be concerned about lymphangitic carcinomatosis, and to make a diagnosis of this the patient will need bronchoscopy and BAL and even possibly biopsy however the patient is not in shape to consider this at this point. Acute exacerbation of COPD, on bronchodilators Pulmonary adenocarcinoma with previous left upper lobectomy on 11/14/2023 with complicated postoperative course with postoperative staging of T2 N2 disease, genetic sequencing showed no evidence of any targetable mutation patient is st atus post chemotherapy completed on 03/31, patient was supposed to go on durvalumab for a total of 1 year, however according to the patient and this was never given. 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 Number of minutes spent on the visit: 10 Dictation was produced using [employer] software. Please excuse any grammatical, word or spelling errors.
--- NOTE | 2024-06-26 13:57 | P.PN ---
Subjective Progress Note Date: 06/26/24 Patient was seen and examined. On 60L Airvo FiO2 85%. Feels winded with little exertion. at bedside. General: non toxic, no distress, appears at stated age Derm: warm, dry Head: atraumatic, normocephalic, symmetric Eyes: EOMI, no lid lag, anicteric sclera Mouth: no lip lesion, mucus membranes moist Cardiovascular: S1S2 reg, no murmur Lungs: Decreased BS bilateral, no rhonchi, no rales , no accessory muscle use Ext: no gross muscle atrophy, no edema, no contractures Neuro: no focal neuro deficits Psych: Alert, oriented, appropriate affect Based on my assessment of this patient, this patient meets a high complexity level of care. Acute on chronic hypoxic respiratory failure likely secondary to radiation pneumonitis Pulmonary adenocarcinoma Acute COPD exacerbation Pneumonia with low procalcitonin Lactic acidosis, likely secondary to hypoxia History of hypertension Chronic normocytic anemia GERD BPH Depression/anxiety Continue DuoNeb QID scheduled, SoluMedrol 60 mg IV Q6H. Supplemental O2 to maintain O2 sat > 92%. Pulmonary on board. Prognosis is guarded. CODE STATUS: FULL CODE DVT Prophylaxis: Lovenox SQ GI Prophylaxis: Protonix PO Designated medical POA if patient is not able to make medical decisions for themselves: I have reviewed the following sales enablement consultant notes: Pulmonary. I have reviewed the results of the following tests: I have ordered the following tests: I have discussed the care of this patient with the following independent historian: . I have independently interpreted the following test below: I have discussed the management of this patient with the following physician: Objective - Vital Signs Vital signs: Vital Signs Temp 97.9 F 06/26/24 08:35 Pulse 74 06/26/24 11:57 Resp 18 06/26/24 08:35 BP 128/75 06/26/24 08:35 Pulse Ox 100 06/26/24 11:45 FiO2 85 06/26/24 11:45 Intake & Output 06/25/24 06/26/24 06/26/24 18:59 06:59 18:59 Intake Total 660 100 240 Output Total 400 900 Balance 660 -300 -660 Weight 85.5 kg Intake: Oral 660 100 240 Output: Urine 400 900 Other: Voiding Method Bedside Commode Bedside Commode Bedside Commode Urinal Urinal Urinal # Voids 1 1 # Bowel Movements 1 1 - Labs CBC & Chem 7: 06/25/24 05:57 06/25/24 05:57
--- NOTE | 2024-06-26 14:14 | P.PN ---
Subjective Progress Note Date: 06/26/24 Principal diagnosis: Hypoxia. S/P treatment for NSCLC In follow-up today patient is in chair eating lunch with at bedside. He cont on airvo, FiO2 remains at 85 today. He cont to not able to move without significant drop in saturation. He now has urinary catheter so, he is not getting up as much, this is not an improvement. Less mucus production, cough is not as severe/harsh as prior. No documented fevers. Tolerating oral intake. Pt denies any pain Objective - Vital Signs Vital signs: Vital Signs Temp 97.9 F 06/26/24 08:35 Pulse 74 06/26/24 11:57 Resp 18 06/26/24 08:35 BP 128/75 06/26/24 08:35 Pulse Ox 100 06/26/24 11:45 FiO2 85 06/26/24 11:45 Intake & Output 06/25/24 06/26/24 06/26/24 18:59 06:59 18:59 Intake Total 660 100 240 Output Total 400 900 Balance 660 -300 -660 Weight 85.5 kg Intake: Oral 660 100 240 Output: Urine 400 900 Other: Voiding Method Bedside Commode Bedside Commode Bedside Commode Urinal Urinal Urinal # Voids 1 1 # Bowel Movements 1 1 - Constitutional General appearance: Present: average body habitus, cooperative, mild distress - EENT Eyes: Present: anicteric sclerae, EOMI ENT: Present: hearing grossly normal - Respiratory Respiratory: right: rales, left: diminished - Cardiovascular Rhythm: regular - Peripheral edema leg Peripheral Edema: bilateral: 1+ - Neurologic Neurologic: Present: CNII-XII intact - Musculoskeletal Musculoskeletal: Present: generalized weakness, strength equal bilaterally - Psychiatric Psychiatric: Present: A&O x's 3, appropriate affect, intact judgment & insight - Labs CBC & Chem 7: 06/25/24 05:57 06/25/24 05:57 Assessment and Plan (1) Acute hypoxemic respiratory failure Current Visit: Yes Status: Acute Priority: High Code(s): J96.01 - ACUTE RESPIRATORY FAILURE WITH HYPOXIA SNOMED Code(s): 124715045 (2) Adenocarcinoma, lung Current Visit: Yes Status: Acute Priority: Medium Code(s): C34.90 - MALIGNANT NEOPLASM OF UNSP PART OF UNSP BRONCHUS OR LUNG SNOMED Code(s): 800712465 Plan: Acute hypoxemic respiratory failure -Underlying cause differentials including COPD exacerbation versus radiation pneumonitis +/- pneumonia. Also possibility of atypical infection or lymphangetic spread of malignancy. -Respiratory status stable, FiO2 was decreased as low as 80 but, today is back at 85. Pt remains unable to move without drop in O2 saturation. -If pt does not improve, may have to consider bronch to get biopsy to see if underlying cause for persistent hypoxemia and resp failure. It would be a risk as Puljay has noted. It would be up to pt and if they want to take that risk to see if an answer can be found. -Will see how pt does and keep in touch with Pulmonary and what they think. Non-small cell lung cancer -Patient is status post surgery, he completed adjuvant chemo (carbo/alimta) no immunotherapy was given. He completed radiation 04/23. Maintenance immunotherap y x1 year has been pending start-pt has never received a dose of immunotherapy -No treatment plans at this time Mild anemia and thrombocytopenia -Hx of chemo exacerbated by acute illness. -Transfuse for hemoglobin less than 7 or if patient is symptomatic-take into consideration fluid status. Intermittent lab checks -Platelets were 110,000 yesterday, stable overall. Okay for anticoagulation and antiplatelet therapies if needed. Cont DVT prophylaxis. Leukocytosis -Recurrent, mostly neutrophilia. Overall stable, no gross shifts -Pt has been on steroids since the with fluctuation of WBC, may be r/t steroids. Stress or infectious process? VSS. Cont to monitor, additional labs, cultures as felt needed.
[2024-06-27] MEDS: ALPRAZolam 0.25 MG TAB PO PRN (08:47)
--- NOTE | 2024-06-27 12:58 | P.PN ---
Subjective Progress Note Date: 06/27/24 Patient was seen and examined. On 60L Airvo FiO2 90%. Feels winded with little exertion. at bedside. General: non toxic, no distress, appears at stated age Derm: warm, dry Head: atraumatic, normocephalic, symmetric Eyes: EOMI, no lid lag, anicteric sclera Mouth: no lip lesion, mucus membranes moist Cardiovascular: S1S2 reg, no murmur Lungs: Decreased BS bilateral, no rhonchi, no rales , no accessory muscle use Ext: no gross muscle atrophy, no edema, no contractures Neuro: no focal neuro deficits Psych: Alert, oriented, appropriate affect Based on my assessment of this patient, this patient meets a high complexity level of care. Acute on chronic hypoxic respiratory failure likely secondary to radiation pneumonitis Pulmonary adenocarcinoma Acute COPD exacerbation Pneumonia with low procalcitonin Lactic acidosis, likely secondary to hypoxia History of hypertension Chronic normocytic anemia GERD BPH Depression/anxiety Continue DuoNeb QID scheduled, SoluMedrol 60 mg IV Q6H. Supplemental O2 to maintain O2 sat > 92%. CTA chest ordered by Pulmonary to rule out PE. Obtain CBC, BMP, Mag in the AM. Discussed with , she will discuss CODE status with the patient. Pulmonary on board. Prognosis is guarded. CODE STATUS: FULL CODE DVT Prophylaxis: Lovenox SQ GI Prophylaxis: Protonix PO Designated medical POA if patient is not able to make medical decisions for themselves: I have reviewed the following senior solutions workflow consultant notes: Pulmonary. I have reviewed the results of the following tests: I have ordered the following tests: CBC, BMP, Mag. I have discussed the care of this patient with the following independent historian: . RN. I have independently interpreted the following test below: I have discussed the management of this patient with the following physician: Objective - Vital Signs Vital signs: Vital Signs Temp 97.9 F 06/27/24 08:35 Pulse 74 06/27/24 11:57 Resp 16 06/27/24 08:35 BP 156/78 06/27/24 08:35 Pulse Ox 93 L 06/27/24 11:41 FiO2 90 06/27/24 11:41 Intake & Output 06/26/24 06/27/24 06/27/24 18:59 06:59 18:59 Intake Total 420 240 Output Total 1500 760 Balance -1080 -760 240 Weight 84.5 kg Intake: Oral 420 240 Output: Urine 1500 760 Other: Voiding Method Bedside Commode Bedside Commode Bedside Commode Urinal Urinal Urinal # Voids 1 # Bowel Movements 1 - Labs CBC & Chem 7: 06/25/24 05:57 06/25/24 05:57
--- NOTE | 2024-06-27 15:26 | P.PN ---
Subjective Progress Note Date: 06/27/24 Principal diagnosis: Acute hypoxic respiratory failure, multifactorial Patient is a 74-year-old male with past medical history significant for stage III pulmonary adenocarcinoma. He is status post left upper lobectomy with mediastinal lymph node dissection done back in November,. Subsequently, started on chemotherapy and radiation therapy. His oncologist is Dr. Zamora. L ast dose of chemotherapy was April,. He follows with Dr. Lancaster for radiation treatments. Last radiation treatment was May 24, 2024. Of note, patient recently admitted and discharged June 12. 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 Procalcitonin level was low. He was discharged on home oxygen and oral steroids. Patient states that his breathing never really returned to baseline. He is severely short of breath with minimal exertion such as getting up to the bathroom. His is at bedside, states his oxygen drops as low as 50%. She brought him to the emergency department for evaluation yesterday evening. He is currently being evaluated in ER, room 11. He is on 10 L high flow nasal cannula. He is awake and alert and no signs of CO2 narcosis. Nondistressed. Nontachypneic. No accessory muscle use. He states he has a persistent cough that is congested with minimal to no sputum production. Denies any fevers, chills, chest pain, hemoptysis. Denies any sick contacts. He has been generally weak, and lost an additional 10 pounds over the last month or so. Appetite has been poor. Most recent chest CT done on his recent admission showing diffuse bilateral groundglass opacities, and postsurgical changes in the left lung. No enlarging mediastinal or hilar adenopathy. Chest x-ray that was done last night on his readmission to the hospital continues to show bilateral lung infiltrates greater on the left, left upper portion may be slightly improved. CBC is unremarkable for leukocytosis. Hemoglobin stable at 9.4 g/dL. Platelets 158. Previous procalcitonin level 0.34 and repeat is pending. CMP: Sodium 134, potassium 4.9, chloride 98, serum bicarb 27, BUN 31, creatinine 0.5, glucose 171. Lactic 2.1. Is unremarkable. Troponin 0.012. NT proBNP not significantly elevated, 646. Current vitals: Temperature 98.5 F, heart rate 74 bpm, blood pressure 98/67 mmHg, nontachypneic, SpO2 is 94% on 10 L high flow nasal cannula. On 06/19/2024, the patient is being seen for a follow-up. The patient remains hypoxic and the patient was placed on Airvo 60 L with an FiO2 of 65%. A follow- up CAT scan of the chest was obtained on 06/18/2024 and there is no evidence of any pulmonary embolism. Of significance is development of bilateral multifocal groundglass pulmonary opacities with organizing changes in the left lung. The groundglass opacities slightly were more prominent compared to the earlier CAT scan especially on the right. Left lung findings are essentially stable. There is also mild to moderate central left-sided bronchiectatic changes. The patient remains afebrile. White cell count is 8.7. Hemoglobin is 8.6. Sodium is at 140 with a potassium level of 5.3. Bicarb level is 32. Lactic acid level is at 1.9. Procalcitonin level was at 0.44. He is able to communicate. His breathing is labored and he desaturates with minimal work of activity. The patient remains on IV Solu-Medrol 60 mg every 6 hours. He was placed also empirically on a combination of Rocephin and Zithromax. On 06/20/2024, the patient is being seen for a follow-up. Remains hypoxic and this morning the patient is on Airvo at 60 L with an FiO2 of 90%. Current pulse ox in the order of 94%. A follow-up chest x-ray was also done and shows stable multifocal right lung infiltrate and ongoing dense infiltration in the left perihilar and left upper lobe along with some volume loss in the left lung. He is able to sit up in a chair. He continues to have chronic hoarseness. Denies having any interval worsening shortness of breath. Using incentive spirometer. White cell count is 9.6 with a hemoglobin 8.8 and a platelet count of 156. BUN is 29 with a creatinine of 0.7 and sodium levels at 137. Calcium level is not elevated at 9.0. Remains on Rocephin. Remains on IV Solu-Medrol. Remains on DuoNeb nebulized treatments [id number]. Rest of the medications are essentially unchanged. On 06/21/2024, the patient remains on Airvo and overall respiratory status and oxygenation has been unchanged. The patient remains on Airvo 60 L with an FiO2 of 90%. White cell count 16.8 with a hemoglobin of of 9.4 and a platelet count of 179. BUN 26 with a creatinine of 0.6. Voice remains hoarse as the patient is known to have chronic paralysis of the vocal cord. Remains on IV Solu-Medrol 60 mg per 6 hours. Remains on IV Rocephin. No new complaints otherwise for now. On 06/22/2024, the patient is being seen for a follow-up. Overall respiratory status is unchanged compared to yesterday the patient remains on Airvo 60 L with an FiO2 of 90% with a pulse ox of 96%. No sputum production. No chest pain. No interval worsening shortness of breath. White cell count at time of 9.1 and a platelet count of 161. CRP is at 4.4. Phosphorus of 4.4 with a magnesium of 2.4. Medication remain unchanged the patient remains on IV Solu-Medrol 60 mg every 6 hours. Remains on IV Rocephin on an empiric basis. Patient was seen and examined today on 06/23/2024, patient is about the same, still requiring Airvo, 90% and 60 L flow, O2 saturation remains marginal chest x-ray continues to show significant disease involving left lung and right lung patient remains on antibiotics and steroids, no major improvement noted his antibiotics remain Rocephin. Not much of a change in the last few days since admission.WBC count is 9.2 hemoglobin is 8.8 electrolytes are normal renal profile is normal, again her chest x-ray is worsening showing persistent left and right infiltrates Seen today on 06/24/2024, clinically the patient is about the same, remains on Airvo high flow and high FiO2 90% and 60 L, patient is comfortable, does not s eem to be in distress, however O2 saturation remains marginal, denies any cough or wheezing no fever no chills no hemoptysis, reviewed CT angiogram of the chest from this admission, which showed bilateral multifocal groundglass opacities involving both right lung and left lung, patient has been on antibiotics all along, and there has been no change patient is also on steroids just in case we are dealing with radiation pneumonitis. Patient is not a great candidate at this point to consider bronchoscopy and BAL, however if his condition gets worse that he needs to be intubated then I will definitely perform bronchoscopy and BAL and even possibly biopsy. Time I would recommend that we treat with bronchodilators, antibiotics, and steroids WBC count today is 13.7 hemoglobin is 9.5 basic metabolic profile is normal renal profile is normal Patient was evaluated today on 06/25/2024, remains the same, remains on Airvo, not much of a change except FiO2 went down to 85% and flow remained at 60 L. Patient continues to have shortness of breath with any activity. WBC count is 11.3 hemoglobin 9.3 electrolytes are normal BUN is 29 creatinine 0.63 chest x- ray from few days ago showed persistent left and right sided infiltrates, no major change noted since admission. Patient was seen today on 06/27/2024, patient remains on Airvo again not much of a change desaturates very easily patient had a significant drop in his O2 saturation even just moving out of the bed to a bedside chair, hence I am recommending a CT angiogram to rule out thromboembolic disease. In the meantime that will help us reassess his abnormal findings on previous CT of the chest and previous x-rays of the chest. Labs are basically about the same his CBC is about the same no changes WBC count is 11.3 hemoglobin is 9.3 Objective - Vital Signs Vital signs: Vital Signs Temp 98.5 F 06/27/24 11:00 Pulse 74 06/27/24 11:57 Resp 20 06/27/24 11:00 BP 156/77 06/27/24 11:00 Pulse Ox 93 L 06/27/24 11:41 FiO2 90 06/27/24 11:41 Intake & Output 06/26/24 06/27/24 06/27/24 18:59 06:59 18:59 Intake Total 420 480 Output Total 1500 760 Balance -1080 -760 480 Weight 84.5 kg Intake: Oral 420 480 Output: Urine 1500 760 Other: Voiding Method Bedside Commode Bedside Commode Bedside Commode Urinal Urinal Urinal # Voids 1 # Bowel Movements 1 - Exam GENERAL EXAM: revealed 74-year-old white male in no distress on Airvo 90% and 60 L flow HEAD: Normocephalic and atraumatic EYES: Normal reaction of pupils, equal size. NOSE: Clear with pink turbinates. THROAT: No erythema or exudates. No white plaques or thrush. NECK: No masses, no JVD. CHEST: No chest wall deformity. Previous thoracotomy scar well-approximated LUNGS: Minimal crackles at the bases no rhonchi no wheezes CVS: S1 and S2 normal with no audible murmur, regular rhythm. No extra heart sounds ABDOMEN: No hepatosplenomegaly, active bowel sounds, no guarding or rigidity. SKIN: No rashes CENTRAL NERVOUS SYSTEM: No focal deficits, tone is normal in all 4 extremities. EXTREMITIES: There is no peripheral edema, clubbing, or cyanosis. Peripheral pulses are intact. - Labs CBC & Chem 7: 06/25/24 05:57 06/25/24 05:57 Assessment and Plan Assessment: Pression: Acute hypoxic respiratory failure, multifactorial, CT of the chest is quite concerning with significant worsening of his interstitial pneumonitis, wondering whether this could be related to his imfinzi presently on hold, and the patient is receiving steroids/Solu-Medrol 60 mg IV push every 6 hours other possibility would be radiation pneumonitis, however very unlikely to be affecting both lungs almost equally patient had radiation to the left lung, and this was less than 3 months ago. Actually was less than 2 months ago was his last radiation treatment another possibility would be concerned about lymphangitic carcinom atosis, and to make a diagnosis of this the patient will need bronchoscopy and BAL and even possibly biopsy patient is not in shape to consider this at this point. Acute exacerbation of COPD, on bronchodilators Pulmonary adenocarcinoma with previous left upper lobectomy on 11/14/2023 with complicated postoperative course with postoperative staging of T2 N2 disease, genetic sequencing showed no evidence of any targetable mutation patient is status post chemotherapy completed on 03/31, patient was supposed to go on durvalumab for a total of 1 year, however according to the patient and this was never given. So very unlikely that his pneumonitis is related to this. Considering his history of adenocarcinoma, and considering his profound hypoxemia with abnormal CT of the chest, lymphangitic carcinomatosis should be in the picture/differential diagnosis. Again patient is not a great candidate for bronchoscopy at this point with his overall pulmonary status. But that is to be considered if the patient ends up requiring intubation mechanical ventilation. Vocal cord paralysis most likely secondary to recurrent laryngeal nerve injury post surgery Chronic anemia Benign essential hypertension Obstructive sleep apnea Former smoker Recommendation: CT angiogram of the chest today Continue Solu-Medrol Continue Airvo and titrate accordingly Continue Solu-Medrol and bronchodilators prognosis remains extremely poor and guarded Bronchoscopy to be considered if patient requires intubation mechanical ventilation. Will continue to follow Time with Patient: Less than 30
--- NOTE | 2024-06-27 18:17 | CT ---
EXAMINATION TYPE: CT angio chest DATE OF EXAM: 06/27/2024 5:47 PM COMPARISON: CT 06/09/2024, 06/18/2024, 01/04/2024. CLINICAL INDICATION: Male, 74 years old with history of Hypoxemia; hypoxic TECHNIQUE/CONTRAST: CTA scan of the thorax is performed with IV Contrast, patient injected with 100 mL of Isovue 300, MIP images are created and reviewed these are created on a separate workstation.. CT DLP: 373.1 mGycm, Automated exposure control for dose reduction was used. FINDINGS: Lungs/Pleura: Similar-appearing airspace opacities interstitial change groundglass opacities througho ut the lungs. No evidence for pneumothorax. Small left pleural effusion. Airway: Large airways are patent. Heart: The heart is mildly enlarged for size. Atherosclerosis of the arterial vasculature. Vasculature: There is no evidence for a filling defect within the pulmonary vasculature to suggest ac aurora pulmonary embolism. The pulmonary artery is of normal size. Mediastinum: No gross evidence of adenopathy. Musculoskeletal: No acute osseous abnormalities Soft Tissues/lymph nodes: Unremarkable. Lower neck: No significant findings. Upper Abdomen: No significant findings. IMPRESSION: 1. No evidence of pulmonary embolism. 2. No significant change in scattered interstitial opacities, groundglass opacities and consolidation changes when comparing to 06/18/2024 findings are new from 01/04/2024 and worse from 06/09/2024. [facility], , 06/27/2024 6:15 PM
--- NOTE | 2024-06-28 07:22 | XR ---
EXAMINATION TYPE: XR chest 1V portable DATE OF EXAM: 06/28/2024 6:04 AM COMPARISON: Chest radiograph from one day prior. CLINICAL INDICATION: Male, 74 years old with history of Hypoxia; TECHNIQUE: XR chest 1V portable Frontal view of the chest. FINDINGS: Lungs/Pleura: Similar multifocal airspace opacities. No evidence of pneumothorax or pleural effusion. Pulmonary vascularity: Unremarkable. Heart/mediastinum: Cardiomediastinal silhouette is unremarkable. Musculoskeletal: No acute osseous pathology. IMPRESSION: Similar multifocal airspace opacities. [facility], , 06/28/2024 7:20 AM
[2024-06-28 07:52] LABS: Anisocytosis Slight; HCT 26.4 % (39.0-53.0); HGB 8.7 gm/dL (13.0-17.5); Hypochromasia Slight; MCH 30.5 pg (25.0-35.0); MCHC 33.1 g/dL (31.0-37.0); MCV 92.1 fL (80.0-100.0); Mean Platelet Volume 8.5; Poikilocytosis Slight; RBC 2.86 m/uL (4.30-5.90); RDW 17.9 % (11.5-15.5); WBC 8.3 k/uL (3.8-10.6)
[2024-06-28 08:02] LABS: African American GFR (CKD) >90 (>60 ml/min/1.73 sqM); Anion Gap 3 mmol/L; Blood Urea Nitrogen 30 mg/dL (9-20); Calcium 8.7 mg/dL (8.4-10.2); Carbon Dioxide 36 mmol/L (22-30); Chloride 96 mmol/L (98-107); Glucose 148 mg/dL (74-99); Magnesium 2.2 mg/dL (1.6-2.3); Non-African American GFR(CKD) >90 (>60 ml/min/1.73 sqM); Potassium 4.9 mmol/L (3.5-5.1); Sodium 135 mmol/L (137-145)
[2024-06-28 08:34] LABS: Platelet Count 89 k/uL (150-450)
--- NOTE | 2024-06-28 10:44 | P.PN ---
Subjective Progress Note Date: 06/28/24 Patient was seen and examined. On 60L Airvo FiO2 90%. Feels winded with little exertion. at bedside. CBC and BMP significant for RBC 2.86, Hg 8.7, Hct 26.4, Plt 89, Na 135, Cl 96, bicarb 36, BUN 30, Cr 0.61, glu 148. Mag 2.2. CTA chest done yesterday showed no PE, interstitial opacities, ground glass which appear worse from 06/09/2024. General: non toxic, no distress, appears at stated age Derm: warm, dry Head: atraumatic, normocephalic, symmetric Eyes: EOMI, no lid lag, anicteric sclera Mouth: no lip lesion, mucus membranes moist Cardiovascular: S1S2 reg, no murmur Lungs: Decreased BS bilateral, no rhonchi, no rales , no accessory muscle use Ext: no gross muscle atrophy, no edema, no contractures Neuro: no focal neuro deficits Psych: Alert, oriented, appropriate affect Based on my assessment of this patient, this patient meets a high complexity level of care. Acute on chronic hypoxic respiratory failure likely secondary to radiation pneumonitis Pulmonary adenocarcinoma Acute COPD exacerbation Pneumonia with low procalcitonin Lactic acidosis, likely secondary to hypoxia History of hypertension Chronic normocytic anemia GERD BPH Depression/anxiety Continue DuoNeb QID scheduled, SoluMedrol 60 mg IV Q6H. Supplemental O2 to maintain O2 sat > 92%. CTA chest ruled out PE. Pulmonary on board. Prognosis is guarded. CODE STATUS: FULL CODE DVT Prophylaxis: Lovenox SQ GI Prophylaxis: Protonix PO Designated medical POA if patient is not able to make medical decisions for themselves: I have reviewed the following customer experience consultant notes: I have reviewed the results of the following tests: CBC, BMP, Mag, CT chest. I have ordered the following tests: I have discussed the care of this patient with the following independent historian: . RN. I have independently interpreted the following test below: I have discussed the management of this patient with the following physician: Objective - Vital Signs Vital signs: Vital Signs Temp 97.7 F 06/28/24 08:54 Pulse 59 L 06/28/24 09:56 Resp 20 06/28/24 09:56 BP 159/84 06/28/24 08:54 Pulse Ox 95 06/28/24 08:54 FiO2 93 06/28/24 08:09 Intake & Output 06/27/24 06/28/24 06/28/24 18:59 06:59 18:59 Intake Total 720 118 Output Total 650 1475 500 Balance 70 -4155 -382 Weight 81 kg Intake: Oral 720 118 Output: Urine 650 1475 500 Other: Voiding Method Bedside Commode Bedside Commode Bedside Commode Urinal Urinal Urinal # Bowel Movements 1 - Labs CBC & Chem 7: 06/28/24 06:13 06/28/24 06:13 Labs: Abnormal Lab Results - Last 24 Hours (Table) 06/28/24 06/28/24 Range/Units 06:13 06:13 RBC 2.86 L (4.30-5.90) m/uL Hgb 8.7 L (13.0-17.5) gm/dL Hct 26.4 L (39.0-53.0) % RDW 17.9 H (11.5-15.5) % Plt Count 89 L (150-450) k/uL Sodium 135 L (137-145) mmol/L Chloride 96 L (98-107) mmol/L Carbon Dioxide 36 H (22-30) mmol/L BUN 30 H (9-20) mg/dL Creatinine 0.61 L (0.66-1.25) mg/dL Glucose 148 H (74-99) mg/dL
--- NOTE | 2024-06-28 12:09 | P.PN ---
Subjective Progress Note Date: 06/28/24 Principal diagnosis: Acute hypoxic respiratory failure, multifactorial Patient is a 74-year-old male with past medical history significant for stage III pulmonary adenocarcinoma. He is status post left upper lobectomy with mediastinal lymph node dissection done back in November,. Subsequently, started on chemotherapy and radiation therapy. His oncologist is Dr. Zamora. L ast dose of chemotherapy was April,. He follows with Dr. Lancaster for radiation treatments. Last radiation treatment was May 24, 2024. Of note, patient recently admitted and discharged June 12. 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 Procalcitonin level was low. He was discharged on home oxygen and oral steroids. Patient states that his breathing never really returned to baseline. He is severely short of breath with minimal exertion such as getting up to the bathroom. His is at bedside, states his oxygen drops as low as 50%. She brought him to the emergency department for evaluation yesterday evening. He is currently being evaluated in ER, room 11. He is on 10 L high flow nasal cannula. He is awake and alert and no signs of CO2 narcosis. Nondistressed. Nontachypneic. No accessory muscle use. He states he has a persistent cough that is congested with minimal to no sputum production. Denies any fevers, chills, chest pain, hemoptysis. Denies any sick contacts. He has been generally weak, and lost an additional 10 pounds over the last month or so. Appetite has been poor. Most recent chest CT done on his recent admission showing diffuse bilateral groundglass opacities, and postsurgical changes in the left lung. No enlarging mediastinal or hilar adenopathy. Chest x-ray that was done last night on his readmission to the hospital continues to show bilateral lung infiltrates greater on the left, left upper portion may be slightly improved. CBC is unremarkable for leukocytosis. Hemoglobin stable at 9.4 g/dL. Platelets 158. Previous procalcitonin level 0.34 and repeat is pending. CMP: Sodium 134, potassium 4.9, chloride 98, serum bicarb 27, BUN 31, creatinine 0.5, glucose 171. Lactic 2.1. Is unremarkable. Troponin 0.012. NT proBNP not significantly elevated, 646. Current vitals: Temperature 98.5 F, heart rate 74 bpm, blood pressure 98/67 mmHg, nontachypneic, SpO2 is 94% on 10 L high flow nasal cannula. On 06/19/2024, the patient is being seen for a follow-up. The patient remains hypoxic and the patient was placed on Airvo 60 L with an FiO2 of 65%. A follow- up CAT scan of the chest was obtained on 06/18/2024 and there is no evidence of any pulmonary embolism. Of significance is development of bilateral multifocal groundglass pulmonary opacities with organizing changes in the left lung. The groundglass opacities slightly were more prominent compared to the earlier CAT scan especially on the right. Left lung findings are essentially stable. There is also mild to moderate central left-sided bronchiectatic changes. The patient remains afebrile. White cell count is 8.7. Hemoglobin is 8.6. Sodium is at 140 with a potassium level of 5.3. Bicarb level is 32. Lactic acid level is at 1.9. Procalcitonin level was at 0.44. He is able to communicate. His breathing is labored and he desaturates with minimal work of activity. The patient remains on IV Solu-Medrol 60 mg every 6 hours. He was placed also empirically on a combination of Rocephin and Zithromax. On 06/20/2024, the patient is being seen for a follow-up. Remains hypoxic and this morning the patient is on Airvo at 60 L with an FiO2 of 90%. Current pulse ox in the order of 94%. A follow-up chest x-ray was also done and shows stable multifocal right lung infiltrate and ongoing dense infiltration in the left perihilar and left upper lobe along with some volume loss in the left lung. He is able to sit up in a chair. He continues to have chronic hoarseness. Denies having any interval worsening shortness of breath. Using incentive spirometer. White cell count is 9.6 with a hemoglobin 8.8 and a platelet count of 156. BUN is 29 with a creatinine of 0.7 and sodium levels at 137. Calcium level is not elevated at 9.0. Remains on Rocephin. Remains on IV Solu-Medrol. Remains on DuoNeb nebulized treatments [id number]. Rest of the medications are essentially unchanged. On 06/21/2024, the patient remains on Airvo and overall respiratory status and oxygenation has been unchanged. The patient remains on Airvo 60 L with an FiO2 of 90%. White cell count 16.8 with a hemoglobin of of 9.4 and a platelet count of 179. BUN 26 with a creatinine of 0.6. Voice remains hoarse as the patient is known to have chronic paralysis of the vocal cord. Remains on IV Solu-Medrol 60 mg per 6 hours. Remains on IV Rocephin. No new complaints otherwise for now. On 06/22/2024, the patient is being seen for a follow-up. Overall respiratory status is unchanged compared to yesterday the patient remains on Airvo 60 L with an FiO2 of 90% with a pulse ox of 96%. No sputum production. No chest pain. No interval worsening shortness of breath. White cell count at time of 9.1 and a platelet count of 161. CRP is at 4.4. Phosphorus of 4.4 with a magnesium of 2.4. Medication remain unchanged the patient remains on IV Solu-Medrol 60 mg every 6 hours. Remains on IV Rocephin on an empiric basis. Patient was seen and examined today on 06/23/2024, patient is about the same, still requiring Airvo, 90% and 60 L flow, O2 saturation remains marginal chest x-ray continues to show significant disease involving left lung and right lung patient remains on antibiotics and steroids, no major improvement noted his antibiotics remain Rocephin. Not much of a change in the last few days since admission.WBC count is 9.2 hemoglobin is 8.8 electrolytes are normal renal profile is normal, again her chest x-ray is worsening showing persistent left and right infiltrates Seen today on 06/24/2024, clinically the patient is about the same, remains on Airvo high flow and high FiO2 90% and 60 L, patient is comfortable, does not s eem to be in distress, however O2 saturation remains marginal, denies any cough or wheezing no fever no chills no hemoptysis, reviewed CT angiogram of the chest from this admission, which showed bilateral multifocal groundglass opacities involving both right lung and left lung, patient has been on antibiotics all along, and there has been no change patient is also on steroids just in case we are dealing with radiation pneumonitis. Patient is not a great candidate at this point to consider bronchoscopy and BAL, however if his condition gets worse that he needs to be intubated then I will definitely perform bronchoscopy and BAL and even possibly biopsy. Time I would recommend that we treat with bronchodilators, antibiotics, and steroids WBC count today is 13.7 hemoglobin is 9.5 basic metabolic profile is normal renal profile is normal Patient was evaluated today on 06/25/2024, remains the same, remains on Airvo, not much of a change except FiO2 went down to 85% and flow remained at 60 L. Patient continues to have shortness of breath with any activity. WBC count is 11.3 hemoglobin 9.3 electrolytes are normal BUN is 29 creatinine 0.63 chest x- ray from few days ago showed persistent left and right sided infiltrates, no major change noted since admission. Patient was seen today on 06/27/2024, patient remains on Airvo again not much of a change desaturates very easily patient had a significant drop in his O2 saturation even just moving out of the bed to a bedside chair, hence I am recommending a CT angiogram to rule out thromboembolic disease. In the meantime that will help us reassess his abnormal findings on previous CT of the chest and previous x-rays of the chest. Labs are basically about the same his CBC is about the same no changes WBC count is 11.3 hemoglobin is 9.3 Seen today on 06/28/2024, patient continues to do poorly, remains on high FiO2 utilizing Airvo and nonrebreather mask, CT of the chest showed no evidence of pulmonary embolism and worsening bilateral airspace disease. Patient and were updated on this condition, even suggested considering hospice, is thinking about it. WBC count is 8.3 hemoglobin 8.7 electrolytes are normal renal profile is normal bicarb is 36 Objective - Vital Signs Vital signs: Vital Signs Temp 97.7 F 06/28/24 08:54 Pulse 99 06/28/24 12:04 Resp 20 06/28/24 09:56 BP 159/84 06/28/24 08:54 Pulse Ox 95 06/28/24 08:54 FiO2 93 06/28/24 08:09 Intake & Output 06/27/24 06/28/24 06/28/24 18:59 06:59 18:59 Intake Total 720 118 Output Total 650 1475 500 Balance 70 -1475 -382 Weight 81 kg Intake: Oral 720 118 Output: Urine 650 1475 500 Other: Voiding Method Bedside Commode Bedside Commode Bedside Commode Urinal Urinal Urinal # Bowel Movements 1 - Exam GENERAL EXAM: revealed 74-year-old white male in no distress on Airvo 90% and 60 L flow, patient is noted to be dyspneic with any activity HEAD: Normocephalic and atraumatic EYES: Normal reaction of pupils, equal size. NOSE: Clear with pink turbinates. THROAT: No erythema or exudates. No white plaques or thrush. NECK: No masses, no JVD. CHEST: No chest wall deformity. Previous thoracotomy scar well-approximated LUNGS: Diminished breath sounds at the bases with crackles CVS: S1 and S2 normal with no audible murmur, regular rhythm. No extra heart sounds ABDOMEN: No hepatosplenomegaly, active bowel sounds, no guarding or rigidity. SKIN: No rashes CENTRAL NERVOUS SYSTEM: No focal deficits, tone is normal in all 4 extremities. EXTREMITIES: There is no peripheral edema, clubbing, or cyanosis. Peripheral pulses are intact. - Labs CBC & Chem 7: 06/28/24 06:13 06/28/24 06:13 Labs: Abnormal Lab Results - Last 24 Hours (Table) 06/28/24 06/28/24 Range/Units 06:13 06:13 RBC 2.86 L (4.30-5.90) m/uL Hgb 8.7 L (13.0-17.5) gm/dL Hct 26.4 L (39.0-53.0) % RDW 17.9 H (11.5-15.5) % Plt Count 89 L (150-450) k/uL Sodium 135 L (137-145) mmol/L Chloride 96 L (98-107) mmol/L Carbon Dioxide 36 H (22-30) mmol/L BUN 30 H (9-20) mg/dL Creatinine 0.61 L (0.66-1.25) mg/dL Glucose 148 H (74-99) mg/dL Assessment and Plan Assessment: Pression: Acute hypoxic respiratory failure, multifactorial, CT of the chest is quite concerning with significant worsening of his interstitial pneumonitis, wondering whether this could be related to his imfinzi presently on hold, and the patient is receiving steroids/Solu-Medrol 60 mg IV push every 6 hours other possibility would be radiation pneumonitis, however very unlikely to be affecting both lungs almost equally patient had radiation to the left lung, and this was less than 3 months ago. Actually was less than 2 months ago was his last radiation treatment another possibility would be concerned about lymphangitic carcinomatosis, and to make a diagnosis of this the patient will need bronchoscopy and BAL and even possibly biopsy patient is not in shape to consider this at this point. Acute exacerbation of COPD, on bronchodilators Pulmonary adenocarcinoma with previous left upper lobectomy on 11/14/2023 with complicated postoperative course with postoperative staging of T2 N2 disease, genetic sequencing showed no evidence of any targetable mutation patient is status post chemotherapy completed on 03/31, patient was supposed to go on durvalumab for a total of 1 year, however according to the patient and this was never given. So very unlikely that his pneumonitis is related to this. Considering his history of adenocarcinoma, and considering his profound hypoxemia with abnormal CT of the chest, lymphangitic carcinomatosis should be in the picture/differential diagnosis. Again patient is not a great candidate for bronchoscopy at this point with his overall pulmonary status. But that is to be considered if the patient ends up requiring intubation mechanical ventilation. Vocal cord paralysis most likely secondary to recurrent laryngeal nerve injury post surgery Chronic anemia Benign essential hypertension Obstructive sleep apnea Former smoker Recommendation: CT angiogram of the chest was reviewed and discussed with the patient and his Suggested considering hospice as his quality of life seems to be extremely poor, and the patient seems to have worsening lung condition Continue Solu-Medrol Continue Airvo and titrate accordingly Continue Solu-Medrol and bronchodilators prognosis remains extremely poor and guarded Will continue to follow Time with Patient: Less than 30
[2024-06-28] MEDS: CYANOCOBALAMIN 1,000 MCG/ML 1 ML VIAL IM ONE (12:16)
[2024-06-28] MEDS: MULTIVITAMINS, THERA 1 EACH TAB PO SCH (12:16)
--- NOTE | 2024-06-29 11:03 | P.PN ---
Subjective Progress Note Date: 06/29/24 Patient was seen and examined. Had some bright red blood in his stool yesterday. On 60L Airvo FiO2 95% saturating 94%. He was extremely short of breath just transferring from the bed to the bedside commode yesterday, desaturating into the 70s recovering into the 80s after a few minutes. at bedside. General: non toxic, no distress, appears at stated age Derm: warm, dry Head: atraumatic, normocephalic, symmetric Eyes: EOMI, no lid lag, anicteric sclera Mouth: no lip lesion, mucus membranes moist Cardiovascular: S1S2 reg, no murmur Lungs: Decreased BS bilateral, no rhonchi, no rales , no accessory muscle use Ext: no gross muscle atrophy, no edema, no contractures Neuro: no focal neuro deficits Psych: Alert, oriented, appropriate affect Based on my assessment of this patient, this patient meets a high complexity level of care. Acute on chronic hypoxic respiratory failure likely secondary to radiation pneumonitis Pulmonary adenocarcinoma Acute COPD exacerbation Pneumonia with low procalcitonin Lactic acidosis, likely secondary to hypoxia History of hypertension Chronic normocytic anemia GERD BPH Depression/anxiety Continue DuoNeb QID scheduled, SoluMedrol 60 mg IV Q6H. Supplemental O2 to maintain O2 sat > 92%. CTA chest ruled out PE. CBC, BMP, Mag ordered for tomorrow. Pulmonary on board. Prognosis is guarded. CODE STATUS: FULL CODE DVT Prophylaxis: Lovenox SQ GI Prophylaxis: Protonix PO Designated medical POA if patient is not able to make medical decisions for themselves: I have reviewed the following bilingual sales consultant notes: Pulmonary. I have reviewed the results of the following tests: I have ordered the following tests: CBC, BMP, Mag. I have discussed the care of this patient with the following independent historian: . Son. RN. I have independently interpreted the following test below: I have discussed the management of this patient with the following physician: Objective - Vital Signs Vital signs: Vital Signs Temp 98.1 F 06/28/24 20:00 Pulse 95 06/29/24 07:41 Resp 16 06/29/24 04:00 BP 185/91 06/29/24 04:00 Pulse Ox 94 L 06/29/24 07:38 FiO2 95 06/29/24 07:38 Intake & Output 06/28/24 06/29/24 06/29/24 18:59 06:59 18:59 Intake Total 356 Output Total 500 1150 Balance -144 -1150 Weight 82 kg Intake: Oral 356 Output: Urine 500 1150 Other: Voiding Method Bedside Commode Bedside Commode Urinal Urinal # Bowel Movements 1 - Labs CBC & Chem 7: 06/28/24 06:13 06/28/24 06:13 Labs: Abnormal Lab Results - Last 24 Hours (Table) 06/28/24 06/28/24 Range/Units 06:13 06:13 RBC 2.86 L (4.30-5.90) m/uL Hgb 8.7 L (13.0-17.5) gm/dL Hct 26.4 L (39.0-53.0) % RDW 17.9 H (11.5-15.5) % Plt Count 89 L (150-450) k/uL Sodium 135 L (137-145) mmol/L Chloride 96 L (98-107) mmol/L Carbon Dioxide 36 H (22-30) mmol/L BUN 30 H (9-20) mg/dL Creatinine 0.61 L (0.66-1.25) mg/dL Glucose 148 H (74-99) mg/dL
--- NOTE | 2024-06-29 12:34 | P.PN ---
Subjective Progress Note Date: 06/29/24 Principal diagnosis: Acute hypoxic respiratory failure, multifactorial Patient is a 74-year-old male with past medical history significant for stage III pulmonary adenocarcinoma. He is status post left upper lobectomy with mediastinal lymph node dissection done back in November,. Subsequently, started on chemotherapy and radiation therapy. His oncologist is Dr. Zamora. L ast dose of chemotherapy was April,. He follows with Dr. Lancaster for radiation treatments. Last radiation treatment was May 24, 2024. Of note, patient recently admitted and discharged June 12. 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 Procalcitonin level was low. He was discharged on home oxygen and oral steroids. Patient states that his breathing never really returned to baseline. He is severely short of breath with minimal exertion such as getting up to the bathroom. His is at bedside, states his oxygen drops as low as 50%. She brought him to the emergency department for evaluation yesterday evening. He is currently being evaluated in ER, room 11. He is on 10 L high flow nasal cannula. He is awake and alert and no signs of CO2 narcosis. Nondistressed. Nontachypneic. No accessory muscle use. He states he has a persistent cough that is congested with minimal to no sputum production. Denies any fevers, chills, chest pain, hemoptysis. Denies any sick contacts. He has been generally weak, and lost an additional 10 pounds over the last month or so. Appetite has been poor. Most recent chest CT done on his recent admission showing diffuse bilateral groundglass opacities, and postsurgical changes in the left lung. No enlarging mediastinal or hilar adenopathy. Chest x-ray that was done last night on his readmission to the hospital continues to show bilateral lung infiltrates greater on the left, left upper portion may be slightly improved. CBC is unremarkable for leukocytosis. Hemoglobin stable at 9.4 g/dL. Platelets 158. Previous procalcitonin level 0.34 and repeat is pending. CMP: Sodium 134, potassium 4.9, chloride 98, serum bicarb 27, BUN 31, creatinine 0.5, glucose 171. Lactic 2.1. Is unremarkable. Troponin 0.012. NT proBNP not significantly elevated, 646. Current vitals: Temperature 98.5 F, heart rate 74 bpm, blood pressure 98/67 mmHg, nontachypneic, SpO2 is 94% on 10 L high flow nasal cannula. On 06/19/2024, the patient is being seen for a follow-up. The patient remains hypoxic and the patient was placed on Airvo 60 L with an FiO2 of 65%. A follow- up CAT scan of the chest was obtained on 06/18/2024 and there is no evidence of any pulmonary embolism. Of significance is development of bilateral multifocal groundglass pulmonary opacities with organizing changes in the left lung. The groundglass opacities slightly were more prominent compared to the earlier CAT scan especially on the right. Left lung findings are essentially stable. There is also mild to moderate central left-sided bronchiectatic changes. The patient remains afebrile. White cell count is 8.7. Hemoglobin is 8.6. Sodium is at 140 with a potassium level of 5.3. Bicarb level is 32. Lactic acid level is at 1.9. Procalcitonin level was at 0.44. He is able to communicate. His breathing is labored and he desaturates with minimal work of activity. The patient remains on IV Solu-Medrol 60 mg every 6 hours. He was placed also empirically on a combination of Rocephin and Zithromax. On 06/20/2024, the patient is being seen for a follow-up. Remains hypoxic and this morning the patient is on Airvo at 60 L with an FiO2 of 90%. Current pulse ox in the order of 94%. A follow-up chest x-ray was also done and shows stable multifocal right lung infiltrate and ongoing dense infiltration in the left perihilar and left upper lobe along with some volume loss in the left lung. He is able to sit up in a chair. He continues to have chronic hoarseness. Denies having any interval worsening shortness of breath. Using incentive spirometer. White cell count is 9.6 with a hemoglobin 8.8 and a platelet count of 156. BUN is 29 with a creatinine of 0.7 and sodium levels at 137. Calcium level is not elevated at 9.0. Remains on Rocephin. Remains on IV Solu-Medrol. Remains on DuoNeb nebulized treatments [id number]. Rest of the medications are essentially unchanged. On 06/21/2024, the patient remains on Airvo and overall respiratory status and oxygenation has been unchanged. The patient remains on Airvo 60 L with an FiO2 of 90%. White cell count 16.8 with a hemoglobin of of 9.4 and a platelet count of 179. BUN 26 with a creatinine of 0.6. Voice remains hoarse as the patient is known to have chronic paralysis of the vocal cord. Remains on IV Solu-Medrol 60 mg per 6 hours. Remains on IV Rocephin. No new complaints otherwise for now. On 06/22/2024, the patient is being seen for a follow-up. Overall respiratory status is unchanged compared to yesterday the patient remains on Airvo 60 L with an FiO2 of 90% with a pulse ox of 96%. No sputum production. No chest pain. No interval worsening shortness of breath. White cell count at time of 9.1 and a platelet count of 161. CRP is at 4.4. Phosphorus of 4.4 with a magnesium of 2.4. Medication remain unchanged the patient remains on IV Solu-Medrol 60 mg every 6 hours. Remains on IV Rocephin on an empiric basis. Patient was seen and examined today on 06/23/2024, patient is about the same, still requiring Airvo, 90% and 60 L flow, O2 saturation remains marginal chest x-ray continues to show significant disease involving left lung and right lung patient remains on antibiotics and steroids, no major improvement noted his antibiotics remain Rocephin. Not much of a change in the last few days since admission.WBC count is 9.2 hemoglobin is 8.8 electrolytes are normal renal profile is normal, again her chest x-ray is worsening showing persistent left and right infiltrates Seen today on 06/24/2024, clinically the patient is about the same, remains on Airvo high flow and high FiO2 90% and 60 L, patient is comfortable, does not s eem to be in distress, however O2 saturation remains marginal, denies any cough or wheezing no fever no chills no hemoptysis, reviewed CT angiogram of the chest from this admission, which showed bilateral multifocal groundglass opacities involving both right lung and left lung, patient has been on antibiotics all along, and there has been no change patient is also on steroids just in case we are dealing with radiation pneumonitis. Patient is not a great candidate at this point to consider bronchoscopy and BAL, however if his condition gets worse that he needs to be intubated then I will definitely perform bronchoscopy and BAL and even possibly biopsy. Time I would recommend that we treat with bronchodilators, antibiotics, and steroids WBC count today is 13.7 hemoglobin is 9.5 basic metabolic profile is normal renal profile is normal Patient was evaluated today on 06/25/2024, remains the same, remains on Airvo, not much of a change except FiO2 went down to 85% and flow remained at 60 L. Patient continues to have shortness of breath with any activity. WBC count is 11.3 hemoglobin 9.3 electrolytes are normal BUN is 29 creatinine 0.63 chest x- ray from few days ago showed persistent left and right sided infiltrates, no major change noted since admission. Patient was seen today on 06/27/2024, patient remains on Airvo again not much of a change desaturates very easily patient had a significant drop in his O2 saturation even just moving out of the bed to a bedside chair, hence I am recommending a CT angiogram to rule out thromboembolic disease. In the meantime that will help us reassess his abnormal findings on previous CT of the chest and previous x-rays of the chest. Labs are basically about the same his CBC is about the same no changes WBC count is 11.3 hemoglobin is 9.3 Seen today on 06/28/2024, patient continues to do poorly, remains on high FiO2 utilizing Airvo and nonrebreather mask, CT of the chest showed no evidence of pulmonary embolism and worsening bilateral airspace disease. Patient and were updated on this condition, even suggested considering hospice, is thinking about it. WBC count is 8.3 hemoglobin 8.7 electrolytes are normal renal profile is normal bicarb is 36 Patient was seen today on 06/29/2024, basically about the same still requiring high FiO2 with Airvo still marginal at best O2 saturation is very marginal in the low 90s. Patient not making any improvement whatsoever. Yesterday I touched bases with the and with the patient regarding considering hospice, apparently that is not in the picture right now, patient wants to remain full code, and no hospice to be considered at this point. If his condition gets any worse, I made it clear that the patient may require intubation mechanical ventilation, and and are both agreeable. His son today is with him. Informed the patient that his CT angiogram showed no pulmonary embolism but it did show worsening of his airspace disease. WBC count today is 8.3 hemoglobin 8.7 electrolytes are normal renal profile is normal, O2 saturation is 95% on 90% FiO2 and 60 L flow. Objective - Vital Signs Vital signs: Vital Signs Temp 98.1 F 06/28/24 20:00 Pulse 78 06/29/24 12:09 Resp 16 06/29/24 12:09 BP 162/87 06/29/24 12:09 Pulse Ox 95 06/29/24 12:09 FiO2 95 06/29/24 11:29 Intake & Output 06/28/24 06/29/24 06/29/24 18:59 06:59 18:59 Intake Total 356 118 Output Total 500 1150 850 Balance -144 -9300 -732 Weight 82 kg Intake: Oral 356 118 Output: Urine 500 1150 850 Other: Voiding Method Bedside Commode Bedside Commode Bedside Commode Urinal Urinal Urinal # Bowel Movements 1 - Exam GENERAL EXAM: revealed 74-year-old white male, dyspneic on Airvo 90% and 60 L flow, HEAD: Normocephalic and atraumatic EYES: Normal reaction of pupils, equal size. NOSE: Clear with pink turbinates. THROAT: No erythema or exudates. No white plaques or thrush. NECK: No masses, no JVD. CHEST: No chest wall deformity. Previous thoracotomy scar well-approximated LUNGS: Diminished breath sounds at the bases with crackles CVS: S1 and S2 normal with no audible murmur, regular rhythm. No extra heart sounds ABDOMEN: No hepatosplenomegaly, active bowel sounds, no guarding or rigidity. SKIN: No rashes CENTRAL NERVOUS SYSTEM: No focal deficits, tone is normal in all 4 extremities. EXTREMITIES: There is no peripheral edema, clubbing, or cyanosis. Peripheral pulses are intact. - Labs CBC & Chem 7: 06/28/24 06:13 06/28/24 06:13 Assessment and Plan Assessment: Pression: Acute hypoxic respiratory failure, multifactorial, CT of the chest is quite concerning with significant worsening of his interstitial pneumonitis, wondering whether this could be related to his imfinzi presently on hold, and the patient is receiving steroids/Solu-Medrol 60 mg IV push every 6 hours other possibility would be radiation pneumonitis, however very unlikely to be affecting both lungs almost equally patient had radiation to the left lung, and this was less than 3 months ago. Actually was less than 2 months ago was his last radiation treatment another possibility would be concerned about lymphangitic carcinomatosis, and to make a diagnosis of this the patient will need bronchoscopy and BAL and even possibly biopsy patient is not in shape to consider this at this point. Acute exacerbation of COPD, on bronchodilators Pulmonary adenocarcinoma with previous left upper lobectomy on 11/14/2023 with complicated postoperative course with postoperative staging of T2 N2 disease, genetic sequencing showed no evidence of any targetable mutation patient is status post chemotherapy completed on 03/31, patient was supposed to go on durvalumab for a total of 1 year, however according to the patient and this was never given. So very unlikely that his pneumonitis is related to this. Considering his history of adenocarcinoma, and considering his profound hypoxemia with abnormal CT of the chest, lymphangitic carcinomatosis should be in the picture/differential diagnosis. Again patient is not a great candidate for bronchoscopy at this point with his overall pulmonary status. But that is to be considered if the patient ends up requiring intubation mechanical ventilation. Vocal cord paralysis most likely secondary to recurrent laryngeal nerve injury post surgery Chronic anemia Benign essential hypertension Obstructive sleep apnea Former smoker Recommendation: Continue present supportive care measures Continue bronchodilators Continue Solu-Medrol Continue Airvo and titrate accordingly Patient remains full code and if condition worsens family is agreeable to intubation mechanical ventilation patient is also agreeable prognosis remains extremely poor and guarded Will continue to follow Time with Patient: Less than 30
[2024-06-30 07:28] LABS: Anisocytosis Slight; HCT 29.2 % (39.0-53.0); HGB 9.4 gm/dL (13.0-17.5); Hypochromasia Slight; MCH 30.3 pg (25.0-35.0); MCHC 32.3 g/dL (31.0-37.0); MCV 93.8 fL (80.0-100.0); Mean Platelet Volume 8.4; RBC 3.11 m/uL (4.30-5.90); WBC 9.7 k/uL (3.8-10.6)
[2024-06-30 07:31] LABS: Platelet Count 87 k/uL (150-450)
[2024-06-30 07:36] LABS: African American GFR (CKD) >90 (>60 ml/min/1.73 sqM); Anion Gap 6 mmol/L; Blood Urea Nitrogen 32 mg/dL (9-20); Calcium 8.9 mg/dL (8.4-10.2); Carbon Dioxide 33 mmol/L (22-30); Chloride 94 mmol/L (98-107); Glucose 150 mg/dL (74-99); Magnesium 2.3 mg/dL (1.6-2.3); Non-African American GFR(CKD) >90 (>60 ml/min/1.73 sqM); Potassium 5.4 mmol/L (3.5-5.1); Sodium 133 mmol/L (137-145)
[2024-06-30] MEDS: SODIUM CHLORIDE 0.9% 1,000 ML IV SCH (11:08)
--- NOTE | 2024-06-30 14:26 | P.PN ---
Subjective Progress Note Date: 06/30/24 Principal diagnosis: Respiratory failure. On 06/21/2024, the patient remains on Airvo and overall respiratory status and oxygenation has been unchanged. The patient remains on Airvo 60 L with an FiO2 of 90%. White cell count 16.8 with a hemoglobin of of 9.4 and a platelet count of 179. BUN 26 with a creatinine of 0.6. Voice remains hoarse as the patient is known to have chronic paralysis of the vocal cord. Remains on IV Solu-Medrol 60 mg per 6 hours. Remains on IV Rocephin. No new complaints otherwise for now. On 06/22/2024, the patient is being seen for a follow-up. Overall respiratory status is unchanged compared to yesterday the patient remains on Airvo 60 L with an FiO2 of 90% with a pulse ox of 96%. No sputum production. No chest pain. No interval worsening shortness of breath. White cell count at time of 9.1 and a platelet count of 161. CRP is at 4.4. Phosphorus of 4.4 with a magnesium of 2.4. Medication remain unchanged the patient remains on IV Solu-Medrol 60 mg every 6 hours. Remains on IV Rocephin on an empiric basis. Patient was seen and examined today on 06/23/2024, patient is about the same, still requiring Airvo, 90% and 60 L flow, O2 saturation remains marginal chest x-ray continues to show significant disease involving left lung and right lung patient remains on antibiotics and steroids, no major improvement noted his antibiotics remain Rocephin. Not much of a change in the last few days since admission.WBC count is 9.2 hemoglobin is 8.8 electrolytes are normal renal profile is normal, again her chest x-ray is worsening showing persistent left and right infiltrates Seen today on 06/24/2024, clinically the patient is about the same, remains on Airvo high flow and high FiO2 90% and 60 L, patient is comfortable, does not seem to be in distress, however O2 saturation remains marginal, denies any cough or wheezing no fever no chills no hemoptysis, reviewed CT angiogram of the chest from this admission, which showed bilateral multifocal groundglass opacities involving both right lung and left lung, patient has been on antibiotics all along, and there has been no change patient is also on steroids just in case we are dealing with radiation pneumonitis. Patient is not a great candidate at this point to consider bronchoscopy and BAL, however if his condition gets worse that he needs to be intubated then I will definitely perform bronchoscopy and BAL and even possibly biopsy. Time I would recommend that we treat with bronchodilators, antibiotics, and steroids WBC count today is 13.7 hemoglobin is 9.5 basic metabolic profile is normal renal profile is normal Patient was evaluated today on 06/25/2024, remains the same, remains on Airvo, not much of a change except FiO2 went down to 85% and flow remained at 60 L. Patient continues to have shortness of breath with any activity. WBC count is 11.3 hemoglobin 9.3 electrolytes are normal BUN is 29 creatinine 0.63 chest x- ray from few days ago showed persistent left and right sided infiltrates, no major change noted since admission. Patient was seen today on 06/27/2024, patient remains on Airvo again not much of a change desaturates very easily patient had a significant drop in his O2 saturation even just moving out of the bed to a bedside chair, hence I am recommending a CT angiogram to rule out thromboembolic disease. In the meantime that will help us reassess his abnormal findings on previous CT of the chest and previous x-rays of the chest. Labs are basically about the same his CBC is about the same no changes WBC count is 11.3 hemoglobin is 9.3 Seen today on 06/28/2024, patient continues to do poorly, remains on high FiO2 utilizing Airvo and nonrebreather mask, CT of the chest showed no evidence of pulmonary embolism and worsening bilateral airspace disease. Patient and were updated on this condition, even suggested considering hospice, is thinking about it. WBC count is 8.3 hemoglobin 8.7 electrolytes are normal marilu l profile is normal bicarb is 36 Patient was seen today on 06/29/2024, basically about the same still requiring high FiO2 with Airvo still marginal at best O2 saturation is very marginal in the low 90s. Patient not making any improvement whatsoever. Yesterday I touched bases with the and with the patient regarding considering hospice, apparently that is not in the picture right now, patient wants to remain full code, and no hospice to be considered at this point. If his condition gets any worse, I made it clear that the patient may require intubation mechanical ventilation, and and are both agreeable. His son today is with him. Informed the patient that his CT angiogram showed no pulmonary embolism but it did show worsening of his airspace disease. WBC count today is 8.3 hemoglobin 8.7 electrolytes are normal renal profile is normal, O2 saturation is 95% on 90% FiO2 and 60 L flow. Progress note dated June 30, 2024. 74-year-old male with a history of lung cancer. The patient is seen today in room 356. Currently, he is on Airvo, with settings of 60 L/min and an FiO2 of 90%. In addition, from time to time, on top of Airvo, he uses a nonrebreather. The patient's N-terminal proBNP, was relatively low, and, the procalcitonin level was normal. I was asked by oncology, why the patient is still hypoxemic. 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 We did make the patient a DO NOT RESUSCITATE patient tonight. He is getting saline at 50 cc an hour. Current labs include a white count 9.7, hemoglobin 9.4, hematocrit 29.2, and a platelet count of 87,000. Sodium 133, potassium 5.4, chlorides 94, CO2 33, BUN 32, creatinine 0.55. Glucose is 150. Objective - Vital Signs Vital signs: Vital Signs Temp 98.0 F 06/30/24 11:07 Pulse 70 06/30/24 14:14 Resp 22 06/30/24 14:13 BP 149/89 06/30/24 11:07 Pulse Ox 93 L 06/30/24 11:07 FiO2 88 06/30/24 14:05 Intake & Output 06/29/24 06/30/24 06/30/24 18:59 06:59 18:59 Intake Total 118 20 Output Total 1250 600 400 Balance -1132 -580 -400 Intake: IV 20 Invasive Line 3 20 Oral 118 Output: Urine 1250 600 400 Other: Voiding Method Bedside Commode External Catheter External Catheter Urinal - Exam Currently on Airvo, conversational dyspnea. No audible wheezing. No use of accessory muscles. HEENT examination is grossly unremarkable. Mucous membranes are moist. No oral lesions. Neck supple. Full range of motion. No adenopathy thyromegaly or neck vein distention. Cardiovascular examination reveals regular rhythm rate. S1-S2 normal. No S3 or S4. No discernible murmur noted. Lungs reveal fine bibasilar crackles. No wheezes or rhonchi. Breath sounds are equal. Abdomen soft bowel sounds are heard. No masses or tenderness. Extremities are intact. No cyanosis clubbing or edema. Skin is without rash or lesion. Neurologic examination is brief but nonfocal. - Labs CBC & Chem 7: 06/30/24 06:56 06/30/24 05:53 Labs: Abnormal Lab Results - Last 24 Hours (Table) 06/30/24 06/30/24 Range/Units 05:53 06:56 RBC 3.11 L (4.30-5.90) m/uL Hgb 9.4 L (13.0-17.5) gm/dL Hct 29.2 L (39.0-53.0) % RDW 18.0 H (11.5-15.5) % Plt Count 87 L (150-450) k/uL Sodium 133 L (137-145) mmol/L Potassium 5.4 H (3.5-5.1) mmol/L Chloride 94 L (98-107) mmol/L Carbon Dioxide 33 H (22-30) mmol/L BUN 32 H (9-20) mg/dL Creatinine 0.55 L (0.66-1.25) mg/dL Glucose 150 H (74-99) mg/dL Assessment and Plan Assessment: Acute severe hypoxemic respiratory failure, likely secondary to radiation pneumonitis/fibrosis, or, lymphangitic carcinomatosis. No evidence of pulmonary embolism, and doubt heart failure/fluid overload, and pneumonia. Acute exacerbation of COPD. Pulmonary adenocarcinoma, with previous left upper lobectomy. Vocal cord paralysis. Chronic anemia. Benign essential hypertension. Obstructive sleep apnea syndrome. Previous history of tobacco use. Plan: Plan dated June 30, 2024. The patient is seen today in room 356. The patient was laying in bed, with the AIRVO device in place. His was at the bedside. I had an honest conversation with the both of them. 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 Bronchoscopy on this patient, would end up with him being placed on mechanical ventilation, which she does not want. We talked about CODE STATUS, and he is now a DNR. I did relay my concerns, to oncology. Prognosis is poor. Time with Patient: Less than 30
--- NOTE | 2024-06-30 14:30 | P.PN ---
Subjective Progress Note Date: 06/30/24 Principal diagnosis: Hypoxia. S/P treatment for NSCLC In follow-up today patient is in bed, he cont on airvo, FiO2 back up to 90. He cont to not able to move without significant drop in saturation, he reports he is very tired. Objective - Vital Signs Vital signs: Vital Signs Temp 98.0 F 06/30/24 11:07 Pulse 72 06/30/24 14:13 Resp 22 06/30/24 14:13 BP 149/89 06/30/24 11:07 Pulse Ox 93 L 06/30/24 11:07 FiO2 88 06/30/24 14:05 Intake & Output 06/29/24 06/30/24 06/30/24 18:59 06:59 18:59 Intake Total 118 20 Output Total 1250 600 400 Balance -1132 -580 -400 Intake: IV 20 Invasive Line 3 20 Oral 118 Output: Urine 1250 600 400 Other: Voiding Method Bedside Commode External Catheter External Catheter Urinal - Constitutional Constitutional Comment(s): Pt is visibly getting weaker, pale, frail looking General appearance: Present: cooperative - EENT Eyes: Present: anicteric sclerae, EOMI ENT: Present: hearing grossly normal - Respiratory Details: I>E, tachypnea at rest Respiratory: bilateral: diminished - Cardiovascular Rhythm: regular Heart sounds: normal: S1, S2 Abnormal Heart Sounds: Absent: systolic murmur, diastolic murmur, rub, S3 Gallop, S4 Gallop, click, other - Peripheral edema leg Peripheral Edema: bilateral: Trace - Gastrointestinal General gastrointestinal: Present: normal bowel sounds, soft - Integumentary Integumentary: Present: pale - Neurologic Neurologic: Present: CNII-XII intact - Musculoskeletal Musculoskeletal: Present: generalized weakness - Psychiatric Psychiatric: Present: A&O x's 3, appropriate affect, intact judgment & insight - Labs CBC & Chem 7: 06/30/24 06:56 06/30/24 05:53 Labs: Abnormal Lab Results - Last 24 Hours (Table) 06/30/24 06/30/24 Range/Units 05:53 06:56 RBC 3.11 L (4.30-5.90) m/uL Hgb 9.4 L (13.0-17.5) gm/dL Hct 29.2 L (39.0-53.0) % RDW 18.0 H (11.5-15.5) % Plt Count 87 L (150-450) k/uL Sodium 133 L (137-145) mmol/L Potassium 5.4 H (3.5-5.1) mmol/L Chloride 94 L (98-107) mmol/L Carbon Dioxide 33 H (22-30) mmol/L BUN 32 H (9-20) mg/dL Creatinine 0.55 L (0.66-1.25) mg/dL Glucose 150 H (74-99) mg/dL - Imaging and Cardiology CT scan - chest: image reviewed Assessment and Plan (1) Acute hypoxemic respiratory failure Current Visit: Yes Status: Acute Priority: High Code(s): J96.01 - ACUTE RESPIRATORY FAILURE WITH HYPOXIA SNOMED Code(s): 675927530 (2) Adenocarcinoma, lung Current Visit: Yes Status: Acute Priority: Medium Code(s): C34.90 - MALIGNANT NEOPLASM OF UNSP PART OF UNSP BRONCHUS OR LUNG SNOMED Code(s): 453319628 Plan: Acute hypoxemic respiratory failure -Underlying cause differentials including COPD exacerbation versus radiation pneumonitis +/- pneumonia. Also possibility of atypical infection or lymphangetic spread of malignancy. -Respiratory status stable, FiO2 back up to 90 today. Pt remains unable to move without drop in O2 saturation. -Case was discussed with Pulmonary and Radiologist, who reviewed CT chest, Dr. Zamora also reviewed the image. Pulmonary feels imaging most consistent with lymphangetic spread of malignancy. Radiologist felt findings could represent atypical pneumonia, drug reaction, lymphangetic spread. Steroids and resp treatments have not improved pt resp status. Pt was on azithromycin for 3 days and recephin for 7 days earlier this hospitalization. Only way to absolutely know would be through biopsy, which is high risk ecause of resp failure and pt may not be able to be weaned from vent. -Pt was made SATINDER after they spoke with Pulmonary. We will f/u tomorrow Non-small cell lung cancer -Patient is status post surgery, he completed adjuvant chemo (carbo/alimta) no immunotherapy was given. He completed radiation 04/23. Maintenance immunotherapy x1 year has been pending start-pt has never received a dose of immunotherapy -No treatment plans at this time Mild anemia and thrombocytopenia -Hx of chemo exacerbated by acute illness. -Transfuse for hemoglobin less than 7 or if patient is symptomatic-take into consideration fluid status. Intermittent lab checks. Hgb 9.4 today -Platelets 87,000 today. Okay for anticoagulation and antiplatelet therapies if needed. Cont DVT prophylaxis. Leukocytosis -Resolved at this time Doctor attests: I performed a history and physical examination of this patient, developed impression and plan of care. Discussed with dictator. I agree with dictators note, documented as a scribe.
--- NOTE | 2024-06-30 14:58 | P.PN ---
Subjective Progress Note Date: 06/30/24 Patient was seen and examined. On 60L Airvo FiO2 94% saturating 96%. He was extremely short of breath with changes in position. at bedside. CBC and BMP significant for RBC 3.11, Hg 9.4, Hct 29.2, Plt 87, Na 133, K 5.4, Cl 94, bicarb 33, BUN 32, Cr 0.55, glu 150. Mag 2.3. General: non toxic, no distress, appears at stated age Derm: warm, dry Head: atraumatic, normocephalic, symmetric Eyes: EOMI, no lid lag, anicteric sclera Mouth: no lip lesion, mucus membranes moist Cardiovascular: S1S2 reg, no murmur Lungs: Decreased BS bilateral, no rhonchi, no rales , no accessory muscle use Ext: no gross muscle atrophy, no edema, no contractures Neuro: no focal neuro deficits Psych: Alert, oriented, appropriate affect Based on my assessment of this patient, this patient meets a high complexity level of care. Acute on chronic hypoxic respiratory failure likely secondary to radiation pneumonitis Pulmonary adenocarcinoma Acute COPD exacerbation Hyponatremia with prerenal azotemia and metabolic alkalosis Hyperkalemia Lactic acidosis, likely secondary to hypoxia History of hypertension Chronic normocytic anemia GERD BPH Depression/anxiety Continue DuoNeb QID scheduled, SoluMedrol 60 mg IV Q6H. Supplemental O2 to maintain O2 sat > 92%. CTA chest ruled out PE. Start normal saline at 50 cc/hr. Potassium mildly elevated. BMP ordered for tomorrow. Agreeable for DNR/DNI at this time. Pulmonary on board. Prognosis is guarded. CODE STATUS: FULL CODE DVT Prophylaxis: Lovenox SQ GI Prophylaxis: Protonix PO Designated medical POA if patient is not able to make medical decisions for themselves: I have reviewed the following data quality consultant notes: Pulmonary. I have reviewed the results of the following tests: CBC, BMP, Mag. I have ordered the following tests: BMP. I have discussed the care of this patient with the following independent historian: . RN. I have independently interpreted the following test below: I have discussed the management of this patient with the following physician: Objective - Vital Signs Vital signs: Vital Signs Temp 98.3 F 06/30/24 07:56 Pulse 98 06/30/24 09:25 Resp 20 06/30/24 09:25 BP 145/86 01/20/25 07:56 Pulse Ox 96 06/30/24 09:16 FiO2 94 06/30/24 09:16 Intake & Output 06/29/24 06/30/24 06/30/24 18:59 06:59 18:59 Intake Total 118 20 Output Total 1250 600 Balance -7462 580 Intake: IV 20 Invasive Line 3 20 Oral 118 Output: Urine 1250 600 Other: Voiding Method Bedside Commode External Catheter Urinal - Labs CBC & Chem 7: 06/30/24 06:56 06/30/24 05:53 Labs: Abnormal Lab Results - Last 24 Hours (Table) 06/30/24 06/30/24 Range/Units 05:53 06:56 RBC 3.11 L (4.30-5.90) m/uL Hgb 9.4 L (13.0-17.5) gm/dL Hct 29.2 L (39.0-53.0) % RDW 18.0 H (11.5-15.5) % Plt Count 87 L (150-450) k/uL Sodium 133 L (137-145) mmol/L Potassium 5.4 H (3.5-5.1) mmol/L Chloride 94 L (98-107) mmol/L Carbon Dioxide 33 H (22-30) mmol/L BUN 32 H (9-20) mg/dL Creatinine 0.55 L (0.66-1.25) mg/dL Glucose 150 H (74-99) mg/dL
[2024-07-01] MEDS: cloNIDine HCL 0.2 MG TAB PO STA (01:47)
[2024-07-01] MEDS: amLODIPine 10 MG TAB PO SCH (08:40)
[2024-07-01] MEDS ORDERED: LOSARTAN-HCTZ 50-12.5 MG 1 EACH TAB PO SCH (09:00)
[2024-07-01 10:33] LABS: African American GFR (CKD) >90 (>60 ml/min/1.73 sqM); Anion Gap 7 mmol/L; Blood Urea Nitrogen 29 mg/dL (9-20); Calcium 8.6 mg/dL (8.4-10.2); Carbon Dioxide 30 mmol/L (22-30); Chloride 96 mmol/L (98-107); Glucose 241 mg/dL (74-99); Non-African American GFR(CKD) >90 (>60 ml/min/1.73 sqM); Potassium 4.8 mmol/L (3.5-5.1); Sodium 133 mmol/L (137-145)
--- NOTE | 2024-07-01 11:42 | P.PN ---
Subjective Progress Note Date: 07/01/24 Principal diagnosis: Hypoxia. S/P treatment for NSCLC In follow-up today patient is in bed, he cont on airvo, tail bone hurts, nose hurts, very tired. Objective - Vital Signs Vital signs: Vital Signs Temp 97.9 F 07/01/24 08:27 Pulse 68 07/01/24 08:37 Resp 22 07/01/24 08:27 BP 135/72 07/01/24 08:27 Pulse Ox 89 L 07/01/24 08:32 FiO2 88 07/01/24 08:32 Intake & Output 06/30/24 07/01/24 07/01/24 18:59 06:59 18:59 Intake Total 118 540 190 Output Total 400 500 Balance -282 540 -310 Intake: IV 10 Invasive Line 3 10 Oral 118 540 180 Output: Urine 400 500 Other: Voiding Method External Catheter External Catheter External Catheter - Constitutional General appearance: Present: cooperative, mild distress - EENT Eyes: Present: anicteric sclerae, EOMI ENT: Present: hearing grossly normal - Respiratory Details: Labored respirations at rest - Cardiovascular Details: Skin warm to the touch - Neurologic Neurologic: Present: CNII-XII intact (Grossly) - Musculoskeletal Musculoskeletal: Present: generalized weakness - Psychiatric Psychiatric: Present: A&O x's 3, appropriate affect, intact judgment & insight - Labs CBC & Chem 7: 06/30/24 06:56 07/01/24 08:40 Labs: Abnormal Lab Results - Last 24 Hours (Table) 07/01/24 Range/Units 08:40 Sodium 133 L (137-145) mmol/L Chloride 96 L (98-107) mmol/L BUN 29 H (9-20) mg/dL Glucose 241 H (74-99) mg/dL Assessment and Plan (1) Acute hypoxemic respiratory failure Current Visit: Yes Status: Acute Priority: High Code(s): J96.01 - ACUTE RESPIRATORY FAILURE WITH HYPOXIA SNOMED Code(s): 182779042 (2) Adenocarcinoma, lung Current Visit: Yes Status: Acute Priority: Medium Code(s): C34.90 - MALIG NANT NEOPLASM OF UNSP PART OF UNSP BRONCHUS OR LUNG SNOMED Code(s): 368334180 Plan: Acute hypoxemic respiratory failure -Underlying cause differentials including COPD exacerbation versus radiation pneumonitis +/- pneumonia. Also possibility of atypical infection or lymphangetic spread of malignancy. -Respiratory status stable, unchanged. FiO2 90, noting that O2 sat is now dropping-89% today. Pt remains unable to move without drop in O2 saturation. -Case was discussed yesterday with Pulmonary and Radiologist, who reviewed CT chest. After multi-diciplinary review of case, conclusion is that the most likely cause of patient's inability to recover to her baseline respiratory status is lymphangitic spread of disease. Antibiotics, steroids have not improved patient's condition. Only way to have a chance at knowing what is occurring would be from biopsy. High risk procedure because of risk of resp failure and inability to be weaned from vent. If there is lymphangetic spread of disease or if non-diagnostic, pt would have to be terminally weaned from vent. -Pt was made SATINDER after they spoke with Pulmonary yesterday. Dr. Zamora discussed hospice philosophy and that he felt hospice care is a reasonable deci meri with pt and . Order placed for hospice info session. Non-small cell lung cancer -Patient is status post surgery, he completed adjuvant chemo (carbo/alimta) no immunotherapy was given. He completed radiation 04/23. Maintenance immunotherapy x1 year has been pending start-pt has never received a dose of immunotherapy Mild anemia and thrombocytopenia -Hx of chemo exacerbated by acute illness. Doctor attests: I performed a history and physical examination of this patient, developed impression and plan of care. Discussed with dictator. I agree with dictators note, documented as a scribe. Time with Patient: Greater than 30
[2024-07-01] MEDS: LOSARTAN-HCTZ 50-12.5 MG 1 EACH TAB PO SCH (12:44)
--- NOTE | 2024-07-01 14:39 | P.PN ---
Subjective Progress Note Date: 07/01/24 Principal diagnosis: Respiratory failure. On 06/21/2024, the patient remains on Airvo and overall respiratory status and oxygenation has been unchanged. The patient remains on Airvo 60 L with an FiO2 of 90%. White cell count 16.8 with a hemoglobin of of 9.4 and a platelet count of 179. BUN 26 with a creatinine of 0.6. Voice remains hoarse as the patient is known to have chronic paralysis of the vocal cord. Remains on IV Solu-Medrol 60 mg per 6 hours. Remains on IV Rocephin. No new complaints otherwise for now. On 06/22/2024, the patient is being seen for a follow-up. Overall respiratory status is unchanged compared to yesterday the patient remains on Airvo 60 L with an FiO2 of 90% with a pulse ox of 96%. No sputum production. No chest pain. No interval worsening shortness of breath. White cell count at time of 9.1 and a platelet count of 161. CRP is at 4.4. Phosphorus of 4.4 with a magnesium of 2.4. Medication remain unchanged the patient remains on IV Solu-Medrol 60 mg every 6 hours. Remains on IV Rocephin on an empiric basis. Patient was seen and examined today on 06/23/2024, patient is about the same, still requiring Airvo, 90% and 60 L flow, O2 saturation remains marginal chest x-ray continues to show significant disease involving left lung and right lung patient remains on antibiotics and steroids, no major improvement noted his antibiotics remain Rocephin. Not much of a change in the last few days since admission.WBC count is 9.2 hemoglobin is 8.8 electrolytes are normal renal profile is normal, again her chest x-ray is worsening showing persistent left and right infiltrates Seen today on 06/24/2024, clinically the patient is about the same, remains on Airvo high flow and high FiO2 90% and 60 L, patient is comfortable, does not seem to be in distress, however O2 saturation remains marginal, denies any cough or wheezing no fever no chills no hemoptysis, reviewed CT angiogram of the chest from this admission, which showed bilateral multifocal groundglass opacities involving both right lung and left lung, patient has been on antibiotics all along, and there has been no change patient is also on steroids just in case we are dealing with radiation pneumonitis. Patient is not a great candidate at this point to consider bronchoscopy and BAL, however if his condition gets worse that he needs to be intubated then I will definitely perform bronchoscopy and BAL and even possibly biopsy. Time I would recommend that we treat with bronchodilators, antibiotics, and steroids WBC count today is 13.7 hemoglobin is 9.5 basic metabolic profile is normal renal profile is normal Patient was evaluated today on 06/25/2024, remains the same, remains on Airvo, not much of a change except FiO2 went down to 85% and flow remained at 60 L. Patient continues to have shortness of breath with any activity. WBC count is 11.3 hemoglobin 9.3 electrolytes are normal BUN is 29 creatinine 0.63 chest x- ray from few days ago showed persistent left and right sided infiltrates, no major change noted since admission. Patient was seen today on 06/27/2024, patient remains on Airvo again not much of a change desaturates very easily patient had a significant drop in his O2 saturation even just moving out of the bed to a bedside chair, hence I am recommending a CT angiogram to rule out thromboembolic disease. In the meantime that will help us reassess his abnormal findings on previous CT of the chest and previous x-rays of the chest. Labs are basically about the same his CBC is about the same no changes WBC count is 11.3 hemoglobin is 9.3 Seen today on 06/28/2024, patient continues to do poorly, remains on high FiO2 utilizing Airvo and nonrebreather mask, CT of the chest showed no evidence of pulmonary embolism and worsening bilateral airspace disease. Patient and were updated on this condition, even suggested considering hospice, is thinking about it. WBC count is 8.3 hemoglobin 8.7 electrolytes are normal marilu l profile is normal bicarb is 36 Patient was seen today on 06/29/2024, basically about the same still requiring high FiO2 with Airvo still marginal at best O2 saturation is very marginal in the low 90s. Patient not making any improvement whatsoever. Yesterday I touched bases with the and with the patient regarding considering hospice, apparently that is not in the picture right now, patient wants to remain full code, and no hospice to be considered at this point. If his condition gets any worse, I made it clear that the patient may require intubation mechanical ventilation, and and are both agreeable. His son today is with him. Informed the patient that his CT angiogram showed no pulmonary embolism but it did show worsening of his airspace disease. WBC count today is 8.3 hemoglobin 8.7 electrolytes are normal renal profile is normal, O2 saturation is 95% on 90% FiO2 and 60 L flow. Progress note dated June 30, 2024. 74-year-old male with a history of lung cancer. The patient is seen today in room 356. Currently, he is on Airvo, with settings of 60 L/min and an FiO2 of 90%. In addition, from time to time, on top of Airvo, he uses a nonrebreather. The patient's N-terminal proBNP, was relatively low, and, the procalcitonin level was normal. I was asked by oncology, why the patient is still hypoxemic. 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 We did make the patient a DO NOT RESUSCITATE patient tonight. He is getting saline at 50 cc an hour. Current labs include a white count 9.7, hemoglobin 9.4, hematocrit 29.2, and a platelet count of 87,000. Sodium 133, potassium 5.4, chlorides 94, CO2 33, BUN 32, creatinine 0.55. Glucose is 150. Progress note dated July 01, 2024. 74-year-old male seen today in room 356. The patient has agreed to speak to hospice. Yesterday when we saw the patient, and his , the patient was made a DO NOT RESUSCITATE. Currently, the patient continues on Airvo, at 60 L/min, and an FiO2 of 90%, plus or minus use of a nonrebreather mask. Is not receiving any IV fluids. Current labs include a sodium 133, potassium 4.8, chlorides 96, CO2 30, BUN 29, creatinine 0.73. Glucose is 241. Calcium is 8.6. The patient's chest x-ray is unchanged. Objective - Vital Signs Vital signs: Vital Signs Temp 98.2 F 07/01/24 12:36 Pulse 75 07/01/24 12:36 Resp 18 07/01/24 12:36 BP 146/83 07/01/24 12:36 Pulse Ox 92 L 07/01/24 12:36 FiO2 90 07/01/24 12:36 Intake & Output 06/30/24 07/01/24 07/01/24 18:59 06:59 18:59 Intake Total 118 540 370 Output Total 400 500 Balance -282 540 -130 Intake: IV 10 Invasive Line 3 10 Oral 118 540 360 Output: Urine 400 500 Other: Voiding Method External Catheter External Catheter External Catheter # Voids 3 - Exam Currently on Airvo, conversational dyspnea. No audible wheezing. No use of accessory muscles. HEENT examination is grossly unremarkable. Mucous membranes are moist. No oral lesions. Neck supple. Full range of motion. No adenopathy thyromegaly or neck vein distention. Cardiovascular examination reveals regular rhythm rate. S1-S2 normal. No S3 or S4. No discernible murmur noted. Lungs reveal fine bibasilar crackles. No wheezes or rhonchi. Breath sounds are equal. Abdomen soft bowel sounds are heard. No masses or tenderness. Extremities are intact. No cyanosis clubbing or edema. Skin is without rash or lesion. Neurologic examination is brief but nonfocal. - Labs CBC & Chem 7: 06/30/24 06:56 07/01/24 08:40 Labs: Abnormal Lab Results - Last 24 Hours (Table) 07/01/24 Range/Units 08:40 Sodium 133 L (137-145) mmol/L Chloride 96 L (98-107) mmol/L BUN 29 H (9-20) mg/dL Glucose 241 H (74-99) mg/dL Assessment and Plan Assessment: Acute severe hypoxemic respiratory failure, likely secondary to radiation pneu monitis/fibrosis, or, lymphangitic carcinomatosis. No evidence of pulmonary embolism, and doubt heart failure/fluid overload, and pneumonia. Acute exacerbation of COPD. Pulmonary adenocarcinoma, with previous left upper lobectomy. Vocal cord paralysis. Chronic anemia. Benign essential hypertension. Obstructive sleep apnea syndrome. Previous history of tobacco use. Plan: Plan dated June 30, 2024. The patient is seen today in room 356. The patient was laying in bed, with the AIRVO device in place. His was at the bedside. I had an honest conversation with the both of them. 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 Bronchoscopy on this patient, would end up with him being placed on mechanical ventilation, which she does not want. We talked about CODE STATUS, and he is now a DNR. I did relay my concerns, to oncology. Prognosis is poor. Plan dated July 01, 2024. The patient is seen again in room 356. He continues on Airvo. The patient is now a DO NOT RESUSCITATE patient. Labs, x-rays, and all medications were reviewed. After reviewing all of the patient's data, I feel that the patient's overall situation is consistent with lymphangitic carcinomatosis, and/or, radiation pneumonitis/fibrosis. I do not believe the patient has an active infection at this time, nor do I feel the patient has a pulmonary embolism. In addition, I do not believe this is fluid overload. We will continue to follow make recommendations. The patient and , are meeting with hospice. The landfill gas collection system operator was outside the door, and is planning to get the patient "anointing of the sick". Time with Patient: Less than 30
--- NOTE | 2024-07-01 16:20 | P.PN ---
Subjective Progress Note Date: 07/01/24 Hospital Course: 74-year-old male with medical history of stage III pulmonary adenocarcinoma, s tatus post left upper lobectomy in May with no dissection November 2023, chemotherapy, radiation therapy, last radiation 05/24/2024, recent admission for radiation induced pneumonitis discharged 06/12/2024, discharged home on home oxygen and oral steroids. Presented with ongoing worsening shortness of breath with minimal exertion. A follow-up CAT scan of the chest was obtained on 06/18/2024 and there is no evidence of any pulmonary embolism. Of significance is development of bilateral multifocal groundglass pulmonary opacities with organizing changes in the left lung. The groundglass opacities slightly were more prominent compared to the earlier CAT scan especially on the right. Left lung findings are essentially stable. There is also mild to moderate central left-sided bronchiectatic c hanges. reviewed CT angiogram of the chest from this admission, which showed bilateral multifocal groundglass opacities involving both right lung and left lung, Started on antibiotics and steroids on admission but no improvements in his symptoms. Has been on high flow nasal cannula but states its around 90% and 60 L, fluctuating. Patient's CODE STATUS was changed to DNR DNI, hospice consulted. Pulmonology following, not a candidate for BAL. Oncology following, case discussed with pulmonary and cardiology, conclusion is that the most likely cause of patient's inability to recover to baseline respiratory status is lymphogenic spread of the disease due to lack of improvement in antibiotics and steroids, however procedure is very high risk and patient may end up on ventilatory and unable to wean. Pertinent Imaging: Imaging today Subjective: Patient complains of persistent shortness of breath with minimal exertion, no chest pain, abdominal pain Pertinent positives and negatives as discussed above, a complete review of systems was performed and all other systems are negative. Vitals Signs Reviewed. General: ill Appearing Derm: [warm], [dry] Head: [atraumatic], [normocephalic], [symmetric] Eyes: [EOMI], [no lid lag], [anicteric sclera] Mouth: [no lip lesion], [mucus membranes moist] Cardiovascular: [S1S2 reg], [no murmur] Lungs: Basilar coarse crackles, no wheezes] Abdominal: [soft], [ nontender to palpation], [no guarding], [no appreciable organomegaly] Ext: [no gross muscle atrophy], [no edema], [no contractures] Neuro: [ CN II-XI grossly intact], [no focal neuro deficits] Psych: [Alert], [oriented], [appropriate affect] Data Reviewed Today: Pertinent Labs: CBC from 06/30 with no leukocytosis, hemoglobin stable 9.4, BMP 07/01: Sodium stable 133, normal potassium, normal and stable creatinine, glucose 249 Assessment and Plan: Severe hypoxic respiratory failure secondary to 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 History of non-small cell lung cancer status post surgery, adjuvant chemo Anemia of chronic disease, likely chemotherapy related acute COPD exacerbation Vocal cord paralysis LÓPEZ History of tobacco use disorder Hyponatremia due to prerenal azotemia and metabolic alkalosis Hyperkalemia, resolved History of hypertension GERD BPH Depression/anxiety -Pulmonology and oncology following, appreciate recommendations hospice cons ulted -IVF with NS at 50 cc/h -Medications: Amlodipine 10, losartan hydrochlorothiazide, metoprolol succinate, Xanax, trazodone -Continue breathing treatment, Solu-Medrol 60 mg IV every 6 hours -Check BMP and CBC -prognosis is guarded -discussed with RN, hospice DVT ppx: Lovenox Code status: DNR/DNI. Anticipated discharge place: Pending clinical stability Objective - Vital Signs Vital signs: Vital Signs Temp 98.2 F 07/01/24 12:36 Pulse 74 07/01/24 15:42 Resp 18 07/01/24 12:36 BP 146/83 07/01/24 12:36 Pulse Ox 95 07/01/24 15:37 FiO2 88 07/01/24 15:37 Intake & Output 06/30/24 07/01/24 07/01/24 18:59 06:59 18:59 Intake Total 118 540 370 Output Total 400 1450 Balance -282 540 -1080 Intake: IV 10 Invasive Line 3 10 Oral 118 540 360 Output: Urine 400 1450 Other: Voiding Method External Catheter External Catheter External Catheter # Voids 3 - Labs CBC & Chem 7: 06/30/24 06:56 07/01/24 08:40 Labs: Abnormal Lab Results - Last 24 Hours (Table) 07/01/24 Range/Units 08:40 Sodium 133 L (137-145) mmol/L Chloride 96 L (98-107) mmol/L BUN 29 H (9-20) mg/dL Glucose 241 H (74-99) mg/dL
[2024-07-01] MEDS: SALINE NASAL GEL 14.1 GM TUBE NASAL PRN (16:49)
[2024-07-02 07:17] LABS: African American GFR (CKD) >90 (>60 ml/min/1.73 sqM); Anion Gap 3 mmol/L; Anisocytosis Slight; Basophils % (A) 0 %; Blood Urea Nitrogen 26 mg/dL (9-20); Calcium 8.8 mg/dL (8.4-10.2); Carbon Dioxide 33 mmol/L (22-30); Chloride 97 mmol/L (98-107); Eosinophils % (A) 0 %; Glucose 174 mg/dL (74-99); HCT 29.4 % (39.0-53.0); HGB 9.6 gm/dL (13.0-17.5); Hypochromasia Slight; Lymphocytes # (A) 0.1 k/uL (1.0-4.8); Lymphocytes % (A) 2 %; MCHC 32.5 g/dL (31.0-37.0); MCV 92.3 fL (80.0-100.0); Mean Platelet Volume 8.7; Monocytes # (A) 0.4 k/uL (0-1.0); Monocytes % (A) 6 %; Neutrophils # (A) 6.3 k/uL (1.3-7.7); Neutrophils % (A) 92 %; Non-African American GFR(CKD) >90 (>60 ml/min/1.73 sqM); Platelet Count 102 k/uL (150-450); Poikilocytosis Slight; Potassium 4.6 mmol/L (3.5-5.1); RBC 3.19 m/uL (4.30-5.90); RDW 18.3 % (11.5-15.5); Sodium 133 mmol/L (137-145); WBC 6.9 k/uL (3.8-10.6)
--- NOTE | 2024-07-02 12:57 | P.PN ---
Subjective Progress Note Date: 07/02/24 Principal diagnosis: Respiratory failure. On 06/21/2024, the patient remains on Airvo and overall respiratory status and oxygenation has been unchanged. The patient remains on Airvo 60 L with an FiO2 of 90%. White cell count 16.8 with a hemoglobin of of 9.4 and a platelet count of 179. BUN 26 with a creatinine of 0.6. Voice remains hoarse as the patient is known to have chronic paralysis of the vocal cord. Remains on IV Solu-Medrol 60 mg per 6 hours. Remains on IV Rocephin. No new complaints otherwise for now. On 06/22/2024, the patient is being seen for a follow-up. Overall respiratory status is unchanged compared to yesterday the patient remains on Airvo 60 L with an FiO2 of 90% with a pulse ox of 96%. No sputum production. No chest pain. No interval worsening shortness of breath. White cell count at time of 9.1 and a platelet count of 161. CRP is at 4.4. Phosphorus of 4.4 with a magnesium of 2.4. Medication remain unchanged the patient remains on IV Solu-Medrol 60 mg every 6 hours. Remains on IV Rocephin on an empiric basis. Patient was seen and examined today on 06/23/2024, patient is about the same, still requiring Airvo, 90% and 60 L flow, O2 saturation remains marginal chest x-ray continues to show significant disease involving left lung and right lung patient remains on antibiotics and steroids, no major improvement noted his antibiotics remain Rocephin. Not much of a change in the last few days since admission.WBC count is 9.2 hemoglobin is 8.8 electrolytes are normal renal profile is normal, again her chest x-ray is worsening showing persistent left and right infiltrates Seen today on 06/24/2024, clinically the patient is about the same, remains on Airvo high flow and high FiO2 90% and 60 L, patient is comfortable, does not seem to be in distress, however O2 saturation remains marginal, denies any cough or wheezing no fever no chills no hemoptysis, reviewed CT angiogram of the chest from this admission, which showed bilateral multifocal groundglass opacities involving both right lung and left lung, patient has been on antibiotics all along, and there has been no change patient is also on steroids just in case we are dealing with radiation pneumonitis. Patient is not a great candidate at this point to consider bronchoscopy and BAL, however if his condition gets worse that he needs to be intubated then I will definitely perform bronchoscopy and BAL and even possibly biopsy. Time I would recommend that we treat with bronchodilators, antibiotics, and steroids WBC count today is 13.7 hemoglobin is 9.5 basic metabolic profile is normal renal profile is normal Patient was evaluated today on 06/25/2024, remains the same, remains on Airvo, not much of a change except FiO2 went down to 85% and flow remained at 60 L. Patient continues to have shortness of breath with any activity. WBC count is 11.3 hemoglobin 9.3 electrolytes are normal BUN is 29 creatinine 0.63 chest x- ray from few days ago showed persistent left and right sided infiltrates, no major change noted since admission. Patient was seen today on 06/27/2024, patient remains on Airvo again not much of a change desaturates very easily patient had a significant drop in his O2 saturation even just moving out of the bed to a bedside chair, hence I am recommending a CT angiogram to rule out thromboembolic disease. In the meantime that will help us reassess his abnormal findings on previous CT of the chest and previous x-rays of the chest. Labs are basically about the same his CBC is about the same no changes WBC count is 11.3 hemoglobin is 9.3 Seen today on 06/28/2024, patient continues to do poorly, remains on high FiO2 utilizing Airvo and nonrebreather mask, CT of the chest showed no evidence of pulmonary embolism and worsening bilateral airspace disease. Patient and were updated on this condition, even suggested considering hospice, is thinking about it. WBC count is 8.3 hemoglobin 8.7 electrolytes are normal marilu l profile is normal bicarb is 36 Patient was seen today on 06/29/2024, basically about the same still requiring high FiO2 with Airvo still marginal at best O2 saturation is very marginal in the low 90s. Patient not making any improvement whatsoever. Yesterday I touched bases with the and with the patient regarding considering hospice, apparently that is not in the picture right now, patient wants to remain full code, and no hospice to be considered at this point. If his condition gets any worse, I made it clear that the patient may require intubation mechanical ventilation, and and are both agreeable. His son today is with him. Informed the patient that his CT angiogram showed no pulmonary embolism but it did show worsening of his airspace disease. WBC count today is 8.3 hemoglobin 8.7 electrolytes are normal renal profile is normal, O2 saturation is 95% on 90% FiO2 and 60 L flow. Progress note dated June 30, 2024. 74-year-old male with a history of lung cancer. The patient is seen today in room 356. Currently, he is on Airvo, with settings of 60 L/min and an FiO2 of 90%. In addition, from time to time, on top of Airvo, he uses a nonrebreather. The patient's N-terminal proBNP, was relatively low, and, the procalcitonin level was normal. I was asked by oncology, why the patient is still hypoxemic. 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 We did make the patient a DO NOT RESUSCITATE patient tonight. He is getting saline at 50 cc an hour. Current labs include a white count 9.7, hemoglobin 9.4, hematocrit 29.2, and a platelet count of 87,000. Sodium 133, potassium 5.4, chlorides 94, CO2 33, BUN 32, creatinine 0.55. Glucose is 150. Progress note dated July 01, 2024. 74-year-old male seen today in room 356. The patient has agreed to speak to hospice. Yesterday when we saw the patient, and his , the patient was made a DO NOT RESUSCITATE. Currently, the patient continues on Airvo, at 60 L/min, and an FiO2 of 90%, plus or minus use of a nonrebreather mask. Is not receiving any IV fluids. Current labs include a sodium 133, potassium 4.8, chlorides 96, CO2 30, BUN 29, creatinine 0.73. Glucose is 241. Calcium is 8.6. The patient's chest x-ray is unchanged. Progress note dated July 02, 2024. 74-year-old male seen today in room 356. The patient's is at the bedside. The patient is laying in bed, mildly tachypneic. He continues on Airvo, with settings of 60 L/min and FiO2 of 90%. In addition, from time to time, he wears a nonrebreather mask over the Airvo cannula. The patient is also getting saline at 50 cc an hour. The patient is a DO NOT RESUSCITATE patient. Today's labs include a white count 6.9, hemoglobin 9.6, hematocrit 29.4, and a platelet count of 102,000. Sodium 133, potassium 4.6, chlorides 97, CO2 33, BUN 26, creatinine 0.57. Calcium is 8.8. Objective - Vital Signs Vital signs: Vital Signs Temp 98.1 F 07/02/24 12:09 Pulse 68 07/02/24 12:39 Resp 22 07/02/24 12:39 BP 145/73 07/02/24 12:09 Pulse Ox 91 L 07/02/24 12:09 FiO2 88 07/02/24 12:30 Intake & Output 07/01/24 07/02/24 07/02/24 18:59 06:59 18:59 Intake Total 550 0 Output Total 2250 1800 800 Balance -1700 -1800 -800 Weight 82 kg Intake: IV 10 Invasive Line 3 10 Oral 540 0 Output: Urine 2250 1800 800 Other: Voiding Method External Catheter External Catheter External Catheter # Voids 3 - Exam Currently on Airvo, conversational dyspnea. No audible wheezing. No use of accessory muscles. HEENT examination is grossly unremarkable. Mucous membranes are moist. No oral lesions. Neck supple. Full range of motion. No adenopathy thyromegaly or neck vein distention. Cardiovascular examination reveals regular rhythm rate. S1-S2 normal. No S3 or S4. No discernible murmur noted. Lungs reveal fine bibasilar crackles. No wheezes or rhonchi. Breath sounds are equal. Abdomen soft bowel sounds are heard. No masses or tenderness. Extremities are intact. No cyanosis clubbing or edema. Skin is without rash or lesion. Neurologic examination is brief but nonfocal. - Labs CBC & Chem 7: 07/02/24 06:04 07/02/24 06:04 Labs: Abnormal Lab Results - Last 24 Hours (Table) 07/02/24 07/02/24 Range/Units 06:04 06:04 RBC 3.19 L (4.30-5.90) m/uL Hgb 9.6 L (13.0-17.5) gm/dL Hct 29.4 L (39.0-53.0) % RDW 18.3 H (11.5-15.5) % Plt Count 102 L (150-450) k/uL Lymphocytes # 0.1 L (1.0-4.8) k/uL Sodium 133 L (137-145) mmol/L Chloride 97 L (98-107) mmol/L Carbon Dioxide 33 H (22-30) mmol/L BUN 26 H (9-20) mg/dL Creatinine 0.57 L (0.66-1.25) mg/dL Glucose 174 H (74-99) mg/dL Assessment and Plan Assessment: Acute severe hypoxemic respiratory failure, likely secondary to radiation pneumonitis/fibrosis, or, lymphangitic carcinomatosis. No evidence of pulmonary embolism, and doubt heart failure/fluid overload, and pneumonia. Acute exacerbation of COPD. Pulmonary adenocarcinoma, with previous left upper lobectomy. Vocal cord paralysis. Chronic anemia. Benign essential hypertension. Obstructive sleep apnea syndrome. Previous history of tobacco use. Plan: Plan dated June 30, 2024. The patient is seen today in room 356. The patient was laying in bed, with the AIRVO device in place. His was at the bedside. I had an honest conversation with the both of them. 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 Bronchoscopy on this patient, would end up with him being placed on mechanical ventilation, which she does not want. We talked about CODE STATUS, and he is now a DNR. I did relay my concerns, to oncology. Prognosis is poor. Plan dated July 01, 2024. The patient is seen again in room 356. He continues on Airvo. The patient is now a DO NOT RESUSCITATE patient. Labs, x-rays, and all medications were reviewed. After reviewing all of the patient's data, I feel that the patient's overall situation is consistent with lymphangitic carcinomatosis, and/or, radiation pneumonitis/fibrosis. I do not believe the patient has an active infection at this time, nor do I feel the patient has a pulmonary embolism. In addition, I do not believe this is fluid overload. We will continue to follow make recommendations. The patient and , are meeting with hospice. The sales development associate was outside the door, and is planning to get the patient "anointing of the sick". Plan dated July 02, 2024. The patient is seen today again in room 356. His is at the bedside. The patient continues on Airvo, 60 L/min with an FiO2 of 90%. In addition, because of increasing shortness of breath, the patient has the nonrebreather mask, over the Airvo cannula. The patient is a DNR. The patient apparently has met with hospice, and is considering hospice. The patient's overall prognosis is poor. 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 We will continue to follow, and make recommendations along the way. Prognosis is poor. Time with Patient: Less than 30
--- NOTE | 2024-07-02 16:21 | P.PN ---
Subjective Progress Note Date: 07/02/24 Hospital Course: 74-year-old male with medical history of stage III pulmonary adenocarcinoma, s tatus post left upper lobectomy in May with no dissection November 2023, chemotherapy, radiation therapy, last radiation 05/24/2024, recent admission for radiation induced pneumonitis discharged 06/12/2024, discharged home on home oxygen and oral steroids. Presented with ongoing worsening shortness of breath with minimal exertion. A follow-up CAT scan of the chest was obtained on 06/18/2024 and there is no evidence of any pulmonary embolism. Of significance is development of bilateral multifocal groundglass pulmonary opacities with organizing changes in the left lung. The groundglass opacities slightly were more prominent compared to the earlier CAT scan especially on the right. Left lung findings are essentially stable. There is also mild to moderate central left-sided bronchiectatic c hanges. reviewed CT angiogram of the chest from this admission, which showed bilateral multifocal groundglass opacities involving both right lung and left lung, Started on antibiotics and steroids on admission but no improvements in his symptoms. Has been on high flow nasal cannula but states its around 90% and 60 L, fluctuating. Patient's CODE STATUS was changed to DNR DNI, hospice consulted. Patient and his family had second meeting with hospice, no final decision. Pulmonology following, not a candidate for BAL. Oncology following, case discussed with pulmonary and cardiology, conclusion is that the most likely cause of patient's inability to recover to baseline respiratory status is l ymphogenic spread of the disease due to lack of improvement in antibiotics and steroids, however procedure is very high risk and patient may end up on ventilatory and unable to wean. Pertinent Imaging: no Imaging today Subjective: Patient complains of persistent shortness of breath with minimal exertion, no chest pain, abdominal pain Pertinent positives and negatives as discussed above, a complete review of systems was performed and all other systems are negative. Vitals Signs Reviewed. General: ill Appearing Derm: [warm], [dry] Head: [atraumatic], [normocephalic], [symmetric] Eyes: [EOMI], [no lid lag], [anicteric sclera] Mouth: [no lip lesion], [mucus membranes moist] Cardiovascular: [S1S2 reg], [no murmur] Lungs: Basilar coarse crackles, no wheezes] Abdominal: [soft], [ nontender to palpation], [no guarding], [no appreciable organomegaly] Ext: [no gross muscle atrophy], [no edema], [no contractures] Neuro: [ CN II-XI grossly intact], [no focal neuro deficits] Psych: [Alert], [oriented], [appropriate affect] Data Reviewed Today: Pertinent Labs: CBC with no leukocytosis, hemoglobin stable 9.6, platelet count 102, sodium stable 133, normal potassium, normal creatinine, glucose is controlled Assessment and Plan: Severe hypoxic respiratory failure secondary to 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 History of non-small cell lung cancer status post surgery, adjuvant chemo Anemia of chronic disease, likely chemotherapy related Thrombocytopenia acute COPD exacerbation Vocal cord paralysis LÓPEZ History of tobacco use disorder Hyponatremia due to prerenal azotemia and metabolic alkalosis Hyperkalemia, resolved History of hypertension GERD BPH Depression/anxiety -Pulmonology and oncology following, appreciate recommendations hospice consulte d -IVF with NS at 50 cc/h -Medications: Amlodipine 10, losartan hydrochlorothiazide, metoprolol succinate, Xanax, trazodone -Continue breathing treatment, Solu-Medrol 60 mg IV every 6 hours -Check BMP and CBC -prognosis is guarded -considering hospice, no final decision yet DVT ppx: Lovenox Code status: DNR/DNI. Anticipated discharge place: Pending clinical stability Objective - Vital Signs Vital signs: Vital Signs Temp 98.4 F 07/02/24 16:15 Pulse 74 07/02/24 16:15 Resp 20 07/02/24 16:15 BP 143/83 07/02/24 16:15 Pulse Ox 93 L 07/02/24 16:15 FiO2 90 07/02/24 16:15 Intake & Output 07/01/24 07/02/24 07/02/24 18:59 06:59 18:59 Intake Total 550 240 Output Total 2250 1800 800 Balance -1700 -1800 -560 Weight 82 kg Intake: IV 10 Invasive Line 3 10 Oral 540 240 Output: Urine 2250 1800 800 Other: Voiding Method External Catheter External Catheter External Catheter # Voids 3 - Labs CBC & Chem 7: 07/02/24 06:04 07/02/24 06:04 Labs: Abnormal Lab Results - Last 24 Hours (Table) 01/22/25 01/22/25 Range/Units 06:04 06:04 RBC 3.19 L (4.30-5.90) m/uL Hgb 9.6 L (13.0-17.5) gm/dL Hct 29.4 L (39.0-53.0) % RDW 18.3 H (11.5-15.5) % Plt Count 102 L (150-450) k/uL Lymphocytes # 0.1 L (1.0-4.8) k/uL Sodium 133 L (137-145) mmol/L Chloride 97 L (98-107) mmol/L Carbon Dioxide 33 H (22-30) mmol/L BUN 26 H (9-20) mg/dL Creatinine 0.57 L (0.66-1.25) mg/dL Glucose 174 H (74-99) mg/dL
[2024-07-03] MEDS: methylPREDNISolone SOD SUCCI 125 MG/2 ML VIAL IV SCH (09:26)
[2024-07-03] MEDS ORDERED: DEXTROSE 50% SYRINGE 50 ML IVP PRN ×2 (12:23)
--- NOTE | 2024-07-03 12:27 | P.PN ---
Subjective Progress Note Date: 07/03/24 Hospital Course: 74-year-old male with medical history of stage III pulmonary adenocarcinoma, s tatus post left upper lobectomy in May with no dissection November 2023, chemotherapy, radiation therapy, last radiation 05/24/2024, recent admission for radiation induced pneumonitis discharged 06/12/2024, discharged home on home oxygen and oral steroids. Presented with ongoing worsening shortness of breath with minimal exertion. A follow-up CAT scan of the chest was obtained on 06/18/2024 and there is no evidence of any pulmonary embolism. Of significance is development of bilateral multifocal groundglass pulmonary opacities with organizing changes in the left lung. The groundglass opacities slightly were more prominent compared to the earlier CAT scan especially on the right. Left lung findings are essentially stable. There is also mild to moderate central left-sided bronchiectatic c hanges. reviewed CT angiogram of the chest from this admission, which showed bilateral multifocal groundglass opacities involving both right lung and left lung, Started on antibiotics and steroids on admission but no improvements in his symptoms. Has been on high flow nasal cannula but states its around 90% and 60 L, fluctuating. Patient's CODE STATUS was changed to DNR DNI, hospice consulted. Patient and his family had second meeting with hospice, no final decision. Pulmonology following, not a candidate for BAL. Oncology following, case discussed with pulmonary and cardiology, conclusion is that the most likely cause of patient's inability to recover to baseline respiratory status is l ymphogenic spread of the disease due to lack of improvement in antibiotics and steroids, however procedure is very high risk and patient may end up on ventilatory and unable to wean. Pertinent Imaging: no Imaging today Subjective: Patient complains of persistent shortness of breath with minimal exertion, worse today, feels more tired, no chest pain, abdominal pain Pertinent positives and negatives as discussed above, a complete review of systems was performed and all other systems are negative. Vitals Signs Reviewed. General: ill Appearing Derm: [warm], [dry] Head: [atraumatic], [normocephalic], [symmetric] Eyes: [EOMI], [no lid lag], [anicteric sclera] Mouth: [no lip lesion], [mucus membranes moist] Cardiovascular: [S1S2 reg], [no murmur] Lungs: Basilar coarse crackles, no wheezes] Abdominal: [soft], [ nontender to palpation], [no guarding], [no appreciable organomegaly] Ext: [no gross muscle atrophy], [no edema], [no contractures] Neuro: [ CN II-XI grossly intact], [no focal neuro deficits] Psych: [Alert], [oriented], [appropriate affect] Data Reviewed Today: Pertinent Labs: No new blood work Assessment and Plan: Severe hypoxic respiratory failure secondary to 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 History of non-small cell lung cancer status post surgery, adjuvant chemo Anemia of chronic disease, likely chemotherapy related Thrombocytopenia acute COPD exacerbation Vocal cord paralysis LÓPEZ History of tobacco use disorder Hyponatremia due to prerenal azotemia and metabolic alkalosis Hyperkalemia, resolved History of hypertension GERD BPH Depression/anxiety -Pulmonology and oncology following, appreciate recommendations hospice consulte d -IVF with NS at 50 cc/h -Medications: Amlodipine 10, losartan hydrochlorothiazide, metoprolol succinate, Xanax, trazodone -Continue breathing treatment, Solu-Medrol 60 mg IV every 6 hours -Check BMP and CBC -prognosis is guarded -considering hospice, no final decision yet, planning to meet with another son on 07/03 DVT ppx: Lovenox Code status: DNR/DNI. Anticipated discharge place: Pending clinical stability Objective - Vital Signs Vital signs: Vital Signs Temp 97.8 F 07/03/24 11:24 Pulse 78 07/03/24 12:18 Resp 24 07/03/24 11:24 BP 151/77 07/03/24 11:24 Pulse Ox 94 L 07/03/24 11:24 FiO2 90 07/03/24 11:24 Intake & Output 07/02/24 07/03/24 07/03/24 18:59 06:59 18:59 Intake Total 480 120 Output Total 1600 0 600 Balance -1120 0 -480 Weight 82 kg Intake: Oral 480 120 Output: Urine 1600 0 600 Other: Voiding Method External Catheter External Catheter - Labs CBC & Chem 7: 07/02/24 06:04 07/02/24 06:04
[2024-07-03] MEDS: INSULIN ASPART (NovoLOG) 100 UNIT/ML VIAL SQ SCH (12:37)
--- NOTE | 2024-07-03 12:40 | P.PN ---
Subjective Progress Note Date: 07/03/24 Principal diagnosis: Respiratory failure. On 06/21/2024, the patient remains on Airvo and overall respiratory status and oxygenation has been unchanged. The patient remains on Airvo 60 L with an FiO2 of 90%. White cell count 16.8 with a hemoglobin of of 9.4 and a platelet count of 179. BUN 26 with a creatinine of 0.6. Voice remains hoarse as the patient is known to have chronic paralysis of the vocal cord. Remains on IV Solu-Medrol 60 mg per 6 hours. Remains on IV Rocephin. No new complaints otherwise for now. On 06/22/2024, the patient is being seen for a follow-up. Overall respiratory status is unchanged compared to yesterday the patient remains on Airvo 60 L with an FiO2 of 90% with a pulse ox of 96%. No sputum production. No chest pain. No interval worsening shortness of breath. White cell count at time of 9.1 and a platelet count of 161. CRP is at 4.4. Phosphorus of 4.4 with a magnesium of 2.4. Medication remain unchanged the patient remains on IV Solu-Medrol 60 mg every 6 hours. Remains on IV Rocephin on an empiric basis. Patient was seen and examined today on 06/23/2024, patient is about the same, still requiring Airvo, 90% and 60 L flow, O2 saturation remains marginal chest x-ray continues to show significant disease involving left lung and right lung patient remains on antibiotics and steroids, no major improvement noted his antibiotics remain Rocephin. Not much of a change in the last few days since admission.WBC count is 9.2 hemoglobin is 8.8 electrolytes are normal renal profile is normal, again her chest x-ray is worsening showing persistent left and right infiltrates Seen today on 06/24/2024, clinically the patient is about the same, remains on Airvo high flow and high FiO2 90% and 60 L, patient is comfortable, does not seem to be in distress, however O2 saturation remains marginal, denies any cough or wheezing no fever no chills no hemoptysis, reviewed CT angiogram of the chest from this admission, which showed bilateral multifocal groundglass opacities involving both right lung and left lung, patient has been on antibiotics all along, and there has been no change patient is also on steroids just in case we are dealing with radiation pneumonitis. Patient is not a great candidate at this point to consider bronchoscopy and BAL, however if his condition gets worse that he needs to be intubated then I will definitely perform bronchoscopy and BAL and even possibly biopsy. Time I would recommend that we treat with bronchodilators, antibiotics, and steroids WBC count today is 13.7 hemoglobin is 9.5 basic metabolic profile is normal renal profile is normal Patient was evaluated today on 06/25/2024, remains the same, remains on Airvo, not much of a change except FiO2 went down to 85% and flow remained at 60 L. Patient continues to have shortness of breath with any activity. WBC count is 11.3 hemoglobin 9.3 electrolytes are normal BUN is 29 creatinine 0.63 chest x- ray from few days ago showed persistent left and right sided infiltrates, no major change noted since admission. Patient was seen today on 06/27/2024, patient remains on Airvo again not much of a change desaturates very easily patient had a significant drop in his O2 saturation even just moving out of the bed to a bedside chair, hence I am recommending a CT angiogram to rule out thromboembolic disease. In the meantime that will help us reassess his abnormal findings on previous CT of the chest and previous x-rays of the chest. Labs are basically about the same his CBC is about the same no changes WBC count is 11.3 hemoglobin is 9.3 Seen today on 06/28/2024, patient continues to do poorly, remains on high FiO2 utilizing Airvo and nonrebreather mask, CT of the chest showed no evidence of pulmonary embolism and worsening bilateral airspace disease. Patient and were updated on this condition, even suggested considering hospice, is thinking about it. WBC count is 8.3 hemoglobin 8.7 electrolytes are normal marilu l profile is normal bicarb is 36 Patient was seen today on 06/29/2024, basically about the same still requiring high FiO2 with Airvo still marginal at best O2 saturation is very marginal in the low 90s. Patient not making any improvement whatsoever. Yesterday I touched bases with the and with the patient regarding considering hospice, apparently that is not in the picture right now, patient wants to remain full code, and no hospice to be considered at this point. If his condition gets any worse, I made it clear that the patient may require intubation mechanical ventilation, and and are both agreeable. His son today is with him. Informed the patient that his CT angiogram showed no pulmonary embolism but it did show worsening of his airspace disease. WBC count today is 8.3 hemoglobin 8.7 electrolytes are normal renal profile is normal, O2 saturation is 95% on 90% FiO2 and 60 L flow. Progress note dated June 30, 2024. 74-year-old male with a history of lung cancer. The patient is seen today in room 356. Currently, he is on Airvo, with settings of 60 L/min and an FiO2 of 90%. In addition, from time to time, on top of Airvo, he uses a nonrebreather. The patient's N-terminal proBNP, was relatively low, and, the procalcitonin level was normal. I was asked by oncology, why the patient is still hypoxemic. 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 We did make the patient a DO NOT RESUSCITATE patient tonight. He is getting saline at 50 cc an hour. Current labs include a white count 9.7, hemoglobin 9.4, hematocrit 29.2, and a platelet count of 87,000. Sodium 133, potassium 5.4, chlorides 94, CO2 33, BUN 32, creatinine 0.55. Glucose is 150. Progress note dated July 01, 2024. 74-year-old male seen today in room 356. The patient has agreed to speak to hospice. Yesterday when we saw the patient, and his , the patient was made a DO NOT RESUSCITATE. Currently, the patient continues on Airvo, at 60 L/min, and an FiO2 of 90%, plus or minus use of a nonrebreather mask. Is not receiving any IV fluids. Current labs include a sodium 133, potassium 4.8, chlorides 96, CO2 30, BUN 29, creatinine 0.73. Glucose is 241. Calcium is 8.6. The patient's chest x-ray is unchanged. Progress note dated July 02, 2024. 74-year-old male seen today in room 356. The patient's is at the bedside. The patient is laying in bed, mildly tachypneic. He continues on Airvo, with settings of 60 L/min and FiO2 of 90%. In addition, from time to time, he wears a nonrebreather mask over the Airvo cannula. The patient is also getting saline at 50 cc an hour. The patient is a DO NOT RESUSCITATE patient. Today's labs include a white count 6.9, hemoglobin 9.6, hematocrit 29.4, and a platelet count of 102,000. Sodium 133, potassium 4.6, chlorides 97, CO2 33, BUN 26, creatinine 0.57. Calcium is 8.8. Progress note dated July 03, 2024. 74-year-old male again seen in room 356. The patient continues on Airvo, with settings of 60 L/min, and an FiO2 of 90%. In addition, from time to time, on top of the Airvo cannula, he wears a nonrebreather mask. The patient is also g etting saline at 50 cc an hour. According to the nurses, the patient is considering hospice. No new labs today. The patient is very short of breath, with any activity. 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 The patient is too unstable for a biopsy. Objective - Vital Signs Vital signs: Vital Signs Temp 97.8 F 07/03/24 11:24 Pulse 80 07/03/24 12:30 Resp 24 07/03/24 11:24 BP 151/77 07/03/24 11:24 Pulse Ox 94 L 07/03/24 11:24 FiO2 90 07/03/24 11:24 Intake & Output 07/02/24 07/03/24 07/03/24 18:59 06:59 18:59 Intake Total 480 120 Output Total 1600 0 600 Balance -1120 0 -480 Weight 82 kg Intake: Oral 480 120 Output: Urine 1600 0 600 Other: Voiding Method External Catheter External Catheter - Exam Currently on Airvo, conversational dyspnea. No audible wheezing. No use of accessory muscles. HEENT examination is grossly unremarkable. Mucous membranes are moist. No oral lesions. Neck supple. Full range of motion. No adenopathy thyromegaly or neck vein distention. Cardiovascular examination reveals regular rhythm rate. S1-S2 normal. No S3 or S4. No discernible murmur noted. Lungs reveal fine bibasilar crackles. No wheezes or rhonchi. Breath sounds are equal. Abdomen soft bowel sounds are heard. No masses or tenderness. Extremities are intact. No cyanosis clubbing or edema. Skin is without rash or lesion. Neurologic examination is brief but nonfocal. - Labs CBC & Chem 7: 07/02/24 06:04 07/02/24 06:04 Assessment and Plan Assessment: Acute severe hypoxemic respiratory failure, likely secondary to radiation pneumonitis/fibrosis, or, lymphangitic carcinomatosis. No evidence of pulmonary embolism, and doubt heart failure/fluid overload, and pneumonia. Acute exacerbation of COPD. Pulmonary adenocarcinoma, with previous left upper lobectomy. Vocal cord paralysis. Chronic anemia. Benign essential hypertension. Obstructive sleep apnea syndrome. Previous history of tobacco use. Plan: Plan dated June 30, 2024. The patient is seen today in room 356. The patient was laying in bed, with the AIRVO device in place. His was at the bedside. I had an honest conversation with the both of them. 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 Bronchoscopy on this patient, would end up with him being placed on mechanical ventilation, which she does not want. We talked about CODE STATUS, and he is now a DNR. I did relay my concerns, to oncology. Prognosis is poor. Plan dated July 01, 2024. The patient is seen again in room 356. He continues on Airvo. The patient is now a DO NOT RESUSCITATE patient. Labs, x-rays, and all medications were reviewed. After reviewing all of the patient's data, I feel that the patient's overall situation is consistent with lymphangitic carcinomatosis, and/or, radiation pneumonitis/fibrosis. I do not believe the patient has an active infection at this time, nor do I feel the patient has a pulmonary embolism. In addition, I do not believe this is fluid overload. We will continue to follow make recommendations. The patient and , are meeting with hospice. The [facility] was outside the door, and is planning to get the patient "anointing of the sick". Plan dated July 02, 2024. The patient is seen today again in room 356. His is at the bedside. The patient continues on Airvo, 60 L/min with an FiO2 of 90%. In addition, because of increasing shortness of breath, the patient has the nonrebreather mask, over the Airvo cannula. The patient is a DNR. The patient apparently has met with hospice, and is considering hospice. The patient's overall prognosis is poor. 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 We will continue to follow, and make recommendations along the way. Prognosis is poor. Plan dated July 03, 2024. The patient is already having no code. He continues on Airvo, at 60 L/min, with an FiO2 of 90%. Labs, x-rays, and medications are reviewed. He also continues on saline at 50 cc an hour. The patient is apparently considering hospice. Additional recommendations and suggestions are forthcoming. The patient is too unstable for any sort of a pulmonary biopsy at this time. Time with Patient: Less than 30
[2024-07-03 16:47] LABS: Glucose,Whole Blood 230 mg/dL (70-110)
[2024-07-03 20:20] LABS: Glucose,Whole Blood 191 mg/dL (70-110)
[2024-07-04 05:59] LABS: Glucose,Whole Blood 181 mg/dL (70-110)
[2024-07-04 06:29] LABS: Anisocytosis Slight; Basophils % (A) 0 %; Eosinophils % (A) 0 %; HCT 29.6 % (39.0-53.0); HGB 9.8 gm/dL (13.0-17.5); Hypochromasia Slight; Lymphocytes # (A) 0.1 k/uL (1.0-4.8); Lymphocytes % (A) 1 %; MCH 30.8 pg (25.0-35.0); MCV 93.2 fL (80.0-100.0); Mean Platelet Volume 8.4; Monocytes # (A) 0.4 k/uL (0-1.0); Monocytes % (A) 6 %; Neutrophils # (A) 5.5 k/uL (1.3-7.7); Neutrophils % (A) 92 %; Platelet Count 95 k/uL (150-450); RBC 3.18 m/uL (4.30-5.90); RDW 18.4 % (11.5-15.5)
[2024-07-04 07:06] LABS: Chloride 96 mmol/L (98-107); Glucose 163 mg/dL (74-99); Potassium 4.4 mmol/L (3.5-5.1); Sodium 132 mmol/L (137-145)
[2024-07-04 07:07] LABS: African American GFR (CKD) >90 (>60 ml/min/1.73 sqM); Anion Gap 3 mmol/L; Blood Urea Nitrogen 31 mg/dL (9-20); Calcium 8.7 mg/dL (8.4-10.2); Carbon Dioxide 33 mmol/L (22-30); Non-African American GFR(CKD) >90 (>60 ml/min/1.73 sqM)
[2024-07-04] MEDS: SENNOSIDES 8.6 MG TAB PO STA (10:30)
[2024-07-04 11:13] LABS: Glucose,Whole Blood 273 mg/dL (70-110)
[2024-07-04] MEDS ORDERED: polyethylene glycoL 3350 17 GM POWD.PACK PO SCH (12:00)
--- NOTE | 2024-07-04 13:21 | P.PN ---
Subjective Progress Note Date: 07/04/24 Principal diagnosis: Respiratory failure. On 06/21/2024, the patient remains on Airvo and overall respiratory status and oxygenation has been unchanged. The patient remains on Airvo 60 L with an FiO2 of 90%. White cell count 16.8 with a hemoglobin of of 9.4 and a platelet count of 179. BUN 26 with a creatinine of 0.6. Voice remains hoarse as the patient is known to have chronic paralysis of the vocal cord. Remains on IV Solu-Medrol 60 mg per 6 hours. Remains on IV Rocephin. No new complaints otherwise for now. On 06/22/2024, the patient is being seen for a follow-up. Overall respiratory status is unchanged compared to yesterday the patient remains on Airvo 60 L with an FiO2 of 90% with a pulse ox of 96%. No sputum production. No chest pain. No interval worsening shortness of breath. White cell count at time of 9.1 and a platelet count of 161. CRP is at 4.4. Phosphorus of 4.4 with a magnesium of 2.4. Medication remain unchanged the patient remains on IV Solu-Medrol 60 mg every 6 hours. Remains on IV Rocephin on an empiric basis. Patient was seen and examined today on 06/23/2024, patient is about the same, still requiring Airvo, 90% and 60 L flow, O2 saturation remains marginal chest x-ray continues to show significant disease involving left lung and right lung patient remains on antibiotics and steroids, no major improvement noted his antibiotics remain Rocephin. Not much of a change in the last few days since admission.WBC count is 9.2 hemoglobin is 8.8 electrolytes are normal renal profile is normal, again her chest x-ray is worsening showing persistent left and right infiltrates Seen today on 06/24/2024, clinically the patient is about the same, remains on Airvo high flow and high FiO2 90% and 60 L, patient is comfortable, does not seem to be in distress, however O2 saturation remains marginal, denies any cough or wheezing no fever no chills no hemoptysis, reviewed CT angiogram of the chest from this admission, which showed bilateral multifocal groundglass opacities involving both right lung and left lung, patient has been on antibiotics all along, and there has been no change patient is also on steroids just in case we are dealing with radiation pneumonitis. Patient is not a great candidate at this point to consider bronchoscopy and BAL, however if his condition gets worse that he needs to be intubated then I will definitely perform bronchoscopy and BAL and even possibly biopsy. Time I would recommend that we treat with bronchodilators, antibiotics, and steroids WBC count today is 13.7 hemoglobin is 9.5 basic metabolic profile is normal renal profile is normal Patient was evaluated today on 06/25/2024, remains the same, remains on Airvo, not much of a change except FiO2 went down to 85% and flow remained at 60 L. Patient continues to have shortness of breath with any activity. WBC count is 11.3 hemoglobin 9.3 electrolytes are normal BUN is 29 creatinine 0.63 chest x- ray from few days ago showed persistent left and right sided infiltrates, no major change noted since admission. Patient was seen today on 06/27/2024, patient remains on Airvo again not much of a change desaturates very easily patient had a significant drop in his O2 saturation even just moving out of the bed to a bedside chair, hence I am recommending a CT angiogram to rule out thromboembolic disease. In the meantime that will help us reassess his abnormal findings on previous CT of the chest and previous x-rays of the chest. Labs are basically about the same his CBC is about the same no changes WBC count is 11.3 hemoglobin is 9.3 Seen today on 06/28/2024, patient continues to do poorly, remains on high FiO2 utilizing Airvo and nonrebreather mask, CT of the chest showed no evidence of pulmonary embolism and worsening bilateral airspace disease. Patient and were updated on this condition, even suggested considering hospice, is thinking about it. WBC count is 8.3 hemoglobin 8.7 electrolytes are normal marilu l profile is normal bicarb is 36 Patient was seen today on 06/29/2024, basically about the same still requiring high FiO2 with Airvo still marginal at best O2 saturation is very marginal in the low 90s. Patient not making any improvement whatsoever. Yesterday I touched bases with the and with the patient regarding considering hospice, apparently that is not in the picture right now, patient wants to remain full code, and no hospice to be considered at this point. If his condition gets any worse, I made it clear that the patient may require intubation mechanical ventilation, and and are both agreeable. His son today is with him. Informed the patient that his CT angiogram showed no pulmonary embolism but it did show worsening of his airspace disease. WBC count today is 8.3 hemoglobin 8.7 electrolytes are normal renal profile is normal, O2 saturation is 95% on 90% FiO2 and 60 L flow. Progress note dated June 30, 2024. 74-year-old male with a history of lung cancer. The patient is seen today in room 356. Currently, he is on Airvo, with settings of 60 L/min and an FiO2 of 90%. In addition, from time to time, on top of Airvo, he uses a nonrebreather. The patient's N-terminal proBNP, was relatively low, and, the procalcitonin level was normal. I was asked by oncology, why the patient is still hypoxemic. 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 We did make the patient a DO NOT RESUSCITATE patient tonight. He is getting saline at 50 cc an hour. Current labs include a white count 9.7, hemoglobin 9.4, hematocrit 29.2, and a platelet count of 87,000. Sodium 133, potassium 5.4, chlorides 94, CO2 33, BUN 32, creatinine 0.55. Glucose is 150. Progress note dated July 01, 2024. 74-year-old male seen today in room 356. The patient has agreed to speak to hospice. Yesterday when we saw the patient, and his , the patient was made a DO NOT RESUSCITATE. Currently, the patient continues on Airvo, at 60 L/min, and an FiO2 of 90%, plus or minus use of a nonrebreather mask. Is not receiving any IV fluids. Current labs include a sodium 133, potassium 4.8, chlorides 96, CO2 30, BUN 29, creatinine 0.73. Glucose is 241. Calcium is 8.6. The patient's chest x-ray is unchanged. Progress note dated July 02, 2024. 74-year-old male seen today in room 356. The patient's is at the bedside. The patient is laying in bed, mildly tachypneic. He continues on Airvo, with settings of 60 L/min and FiO2 of 90%. In addition, from time to time, he wears a nonrebreather mask over the Airvo cannula. The patient is also getting saline at 50 cc an hour. The patient is a DO NOT RESUSCITATE patient. Today's labs include a white count 6.9, hemoglobin 9.6, hematocrit 29.4, and a platelet count of 102,000. Sodium 133, potassium 4.6, chlorides 97, CO2 33, BUN 26, creatinine 0.57. Calcium is 8.8. Progress note dated July 03, 2024. 74-year-old male again seen in room 356. The patient continues on Airvo, with settings of 60 L/min, and an FiO2 of 90%. In addition, from time to time, on top of the Airvo cannula, he wears a nonrebreather mask. The patient is also g etting saline at 50 cc an hour. According to the nurses, the patient is considering hospice. No new labs today. The patient is very short of breath, with any activity. 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 The patient is too unstable for a biopsy. Progress note dated July 04, 2024. 74-year-old male again seen today in room 356. Family members are in the room. The patient remains on Airvo, 60 L/min, with an FiO2 of 90%. In addition, from time to time he uses the nonrebreather mask over the Airvo cannula, because he is more short of breath. The patient is also getting saline at 50 cc an hour. He is a DO NOT RESUSCITATE patient. He has been seen by hospice, but he has not made a decision about hospice as yet. White count 6, hemoglobin 9.8, hematocrit 29.6, platelet count 95,000. Sodium 132, potassium 4.4, chlorides 96, CO2 33, BUN 31, and creatinine 0.51. Glucose is 273. Objective - Vital Signs Vital signs: Vital Signs Temp 97.8 F 07/04/24 11:45 Pulse 88 07/04/24 12:50 Resp 24 07/04/24 12:50 BP 133/88 07/04/24 11:45 Pulse Ox 97 07/04/24 11:45 FiO2 88 07/04/24 12:39 Intake & Output 07/03/24 07/04/24 07/04/24 18:59 06:59 18:59 Intake Total 1200 480 Output Total 1300 700 500 Balance -100 -700 -20 Intake: Intake, IV Titration 600 Amount Sodium Chloride 0.9% 1, 600 000 ml @ 50 mls/hr IV . Q20H [facility] Rx#:[id number] Oral 600 480 Output: Urine 1300 700 500 Other: Voiding Method External Catheter External Catheter - Exam Currently on Airvo, conversational dyspnea. No audible wheezing. No use of accessory muscles. HEENT examination is grossly unremarkable. Mucous membranes are moist. No oral lesions. Neck supple. Full range of motion. No adenopathy thyromegaly or neck vein distention. Cardiovascular examination reveals regular rhythm rate. S1-S2 normal. No S3 or S4. No discernible murmur noted. Lungs reveal fine bibasilar crackles. No wheezes or rhonchi. Breath sounds are equal. Abdomen soft bowel sounds are heard. No masses or tenderness. Extremities are intact. No cyanosis clubbing or edema. Skin is without rash or lesion. Neurologic examination is brief but nonfocal. - Labs CBC & Chem 7: 07/04/24 05:32 07/04/24 05:32 Labs: Abnormal Lab Results - Last 24 Hours (Table) 07/03/24 07/03/24 07/04/24 Range/Units 16:46 20:19 05:32 RBC 3.18 L (4.30-5.90) m/uL Hgb 9.8 L (13.0-17.5) gm/dL Hct 29.6 L (39.0-53.0) % RDW 18.4 H (11.5-15.5) % Plt Count 95 L (150-450) k/uL Lymphocytes # 0.1 L (1.0-4.8) k/uL Sodium (137-145) mmol/L Chloride (98-107) mmol/L Carbon Dioxide (22-30) mmol/L BUN (9-20) mg/dL Creatinine (0.66-1.25) mg/dL Glucose (74-99) mg/dL POC Glucose (mg/dL) 230 H 191 H (70-110) mg/dL 07/04/24 07/04/24 07/04/24 Range/Units 05:32 05:57 11:11 RBC (4.30-5.90) m/uL Hgb (13.0-17.5) gm/dL Hct (39.0-53.0) % RDW (11.5-15.5) % Plt Count (150-450) k/uL Lymphocytes # (1.0-4.8) k/uL Sodium 132 L (137-145) mmol/L Chloride 96 L (98-107) mmol/L Carbon Dioxide 33 H (22-30) mmol/L BUN 31 H (9-20) mg/dL Creatinine 0.51 L (0.66-1.25) mg/dL Glucose 163 H (74-99) mg/dL POC Glucose (mg/dL) 181 H 273 H (70-110) mg/dL Assessment and Plan Assessment: Acute severe hypoxemic respiratory failure, likely secondary to radiation pneumonitis/fibrosis, or, lymphangitic carcinomatosis. No evidence of pulmonary embolism, and doubt heart failure/fluid overload, and pneumonia. Acute exacerbation of COPD. Pulmonary adenocarcinoma, with previous left upper lobectomy. Vocal cord paralysis. Chronic anemia. Benign essential hypertension. Obstructive sleep apnea syndrome. Previous history of tobacco use. Plan: Plan dated June 30, 2024. The patient is seen today in room 356. The patient was laying in bed, with the AIRVO device in place. His was at the bedside. I had an honest conversation with the both of them. 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 Bronchoscopy on this patient, would end up with him being placed on mechanical ventilation, which she does not want. We talked about CODE STATUS, and he is now a DNR. I did relay my concerns, to oncology. Prognosis is poor. Plan dated July 01, 2024. The patient is seen again in room 356. He continues on Airvo. The patient is now a DO NOT RESUSCITATE patient. Labs, x-rays, and all medications were reviewed. After reviewing all of the patient's data, I feel that the patient's overall situation is consistent with lymphangitic carcinomatosis, and/or, radiation pneumonitis/fibrosis. I do not believe the patient has an active infection at this time, nor do I feel the patient has a pulmonary embolism. In addition, I do not believe this is fluid overload. We will continue to follow make recommendations. The patient and , are meeting with hospice. The pipeline construction inspector was outside the door, and is planning to get the patient "anointing of the sick". Plan dated July 02, 2024. The patient is seen today again in room 356. His is at the bedside. The patient continues on Airvo, 60 L/min with an FiO2 of 90%. In addition, because of increasing shortness of breath, the patient has the nonrebreather mask, over the Airvo cannula. The patient is a DNR. The patient apparently has met with hospice, and is considering hospice. The patient's overall prognosis is poor. 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 We will continue to follow, and make recommendations along the way. Prognosis is poor. Plan dated July 03, 2024. The patient is already having no code. He continues on Airvo, at 60 L/min, with an FiO2 of 90%. Labs, x-rays, and medications are reviewed. He also continues on saline at 50 cc an hour. The patient is apparently considering hospice. Additional recommendations and suggestions are forthcoming. The patient is too unstable for any sort of a pulmonary biopsy at this time. Plan dated July 04, 2024. The patient is seen today in room 356. and sister at the bedside. The patient cannot make a decision about hospice. He is a DO NOT RESUSCITATE patient. Labs, x-rays, medications are reviewed. No additional laboratory test should be done on this patient. He has seen hospice, and spoken to them. Addit ional recommendations and suggestions are forthcoming. Prognosis is poor. Time with Patient: Less than 30
--- NOTE | 2024-07-04 13:40 | P.PN ---
Subjective Progress Note Date: 07/04/24 Hospital Course: 74-year-old male with medical history of stage III pulmonary adenocarcinoma, s tatus post left upper lobectomy in May with no dissection November 2023, chemotherapy, radiation therapy, last radiation 05/24/2024, recent admission for radiation induced pneumonitis discharged 06/12/2024, discharged home on home oxygen and oral steroids. Presented with ongoing worsening shortness of breath with minimal exertion. A follow-up CAT scan of the chest was obtained on 06/18/2024 and there is no evidence of any pulmonary embolism. Of significance is development of bilateral multifocal groundglass pulmonary opacities with organizing changes in the left lung. The groundglass opacities slightly were more prominent compared to the earlier CAT scan especially on the right. Left lung findings are essentially stable. There is also mild to moderate central left-sided bronchiectatic c hanges. reviewed CT angiogram of the chest from this admission, which showed bilateral multifocal groundglass opacities involving both right lung and left lung, Started on antibiotics and steroids on admission but no improvements in his symptoms. Has been on high flow nasal cannula but states its around 90% and 60 L, fluctuating. Patient's CODE STATUS was changed to DNR DNI, hospice consulted. Patient and his family had 3rd meeting with hospice, no final decision. Pulmonology following, not a candidate for BAL. Oncology following, case discussed with pulmonary and cardiology, conclusion is that the most likely cause of patient's inability to recover to baseline respiratory status is lymp hogenic spread of the disease due to lack of improvement in antibiotics and steroids, however procedure is very high risk and patient may end up on ventilatory and unable to wean. Pertinent Imaging: none Subjective: No significant changes, did complain about constipation, medications ordered accordingly Pertinent positives and negatives as discussed above, a complete review of systems was performed and all other systems are negative. Vitals Signs Reviewed. General: ill Appearing Derm: [warm], [dry] Head: [atraumatic], [normocephalic], [symmetric] Eyes: [EOMI], [no lid lag], [anicteric sclera] Mouth: [no lip lesion], [mucus membranes moist] Cardiovascular: [S1S2 reg], [no murmur] Lungs: Basilar coarse crackles, no wheezes] Abdominal: [soft], [ nontender to palpation], [no guarding], [no appreciable organomegaly] Ext: [no gross muscle atrophy], [no edema], [no contractures] Neuro: [ CN II-XI grossly intact], [no focal neuro deficits] Psych: [Alert], [oriented], [appropriate affect] Data Reviewed Today: Pertinent Labs: No leukocytosis, hemoglobin 9.8, sodium 132, creatinine 0.51, glucose is fairly controlled Assessment and Plan: Severe hypoxic respiratory failure secondary to 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 History of non-small cell lung cancer status post surgery, adjuvant chemo Anemia of chronic disease, likely chemotherapy related Thrombocytopenia acute COPD exacerbation Vocal cord paralysis LÓPEZ History of tobacco use disorder Hyponatremia due to prerenal azotemia and metabolic alkalosis Hyperkalemia, resolved History of hypertension GERD BPH Depression/anxiety constipation -Pulmonology and oncology following, appreciate recommendations hospice consulted -IVF with NS at 50 cc/h -Medications: Amlodipine 10, losartan hydrochlorothiazide, metoprolol succinate, Xanax, trazodone -Continue breathing treatment, Solu-Medrol 60 mg IV every 6 hours -prognosis is guarded -considering hospice, no final decision yet, -senna, miralax DVT ppx: Lovenox Code status: DNR/DNI. Anticipated discharge place: Pending clinical stability Objective - Vital Signs Vital signs: Vital Signs Temp 97.8 F 07/04/24 11:45 Pulse 88 07/04/24 12:50 Resp 24 07/04/24 12:50 BP 133/88 07/04/24 11:45 Pulse Ox 97 07/04/24 11:45 FiO2 88 07/04/24 12:39 Intake & Output 07/03/24 07/04/24 07/04/24 18:59 06:59 18:59 Intake Total 1200 480 Output Total 1300 700 500 Balance -100 -700 -20 Intake: Intake, IV Titration 600 Amount Sodium Chloride 0.9% 1, 600 000 ml @ 50 mls/hr IV . Q20H [facility] Rx#:[id number] Oral 600 480 Output: Urine 1300 700 500 Other: Voiding Method External Catheter External Catheter - Labs CBC & Chem 7: 07/04/24 05:32 07/04/24 05:32 Labs: Abnormal Lab Results - Last 24 Hours (Table) 07/03/24 07/03/24 07/04/24 Range/Units 16:46 20:19 05:32 RBC 3.18 L (4.30-5.90) m/uL Hgb 9.8 L (13.0-17.5) gm/dL Hct 29.6 L (39.0-53.0) % RDW 18.4 H (11.5-15.5) % Plt Count 95 L (150-450) k/uL Lymphocytes # 0.1 L (1.0-4.8) k/uL Sodium (137-145) mmol/L Chloride (98-107) mmol/L Carbon Dioxide (22-30) mmol/L BUN (9-20) mg/dL Creatinine (0.66-1.25) mg/dL Glucose (74-99) mg/dL POC Glucose (mg/dL) 230 H 191 H (70-110) mg/dL 07/04/24 07/04/24 07/04/24 Range/Units 05:32 05:57 11:11 RBC (4.30-5.90) m/uL Hgb (13.0-17.5) gm/dL Hct (39.0-53.0) % RDW (11.5-15.5) % Plt Count (150-450) k/uL Lymphocytes # (1.0-4.8) k/uL Sodium 132 L (137-145) mmol/L Chloride 96 L (98-107) mmol/L Carbon Dioxide 33 H (22-30) mmol/L BUN 31 H (9-20) mg/dL Creatinine 0.51 L (0.66-1.25) mg/dL Glucose 163 H (74-99) mg/dL POC Glucose (mg/dL) 181 H 273 H (70-110) mg/dL
[2024-07-04 16:10] LABS: Glucose,Whole Blood 351 mg/dL (70-110)
[2024-07-04 20:12] LABS: Glucose,Whole Blood 347 mg/dL (70-110)
[2024-07-04] MEDS: polyethylene glycoL 3350 17 GM POWD.PACK PO SCH (20:18)
[2024-07-05 06:03] LABS: Glucose,Whole Blood 181 mg/dL (70-110)
[2024-07-05 11:13] LABS: Glucose,Whole Blood 397 mg/dL (70-110)
--- NOTE | 2024-07-05 11:15 | P.PN ---
Subjective Progress Note Date: 07/05/24 Principal diagnosis: Respiratory failure. On 06/21/2024, the patient remains on Airvo and overall respiratory status and oxygenation has been unchanged. The patient remains on Airvo 60 L with an FiO2 of 90%. White cell count 16.8 with a hemoglobin of of 9.4 and a platelet count of 179. BUN 26 with a creatinine of 0.6. Voice remains hoarse as the patient is known to have chronic paralysis of the vocal cord. Remains on IV Solu-Medrol 60 mg per 6 hours. Remains on IV Rocephin. No new complaints otherwise for now. On 06/22/2024, the patient is being seen for a follow-up. Overall respiratory status is unchanged compared to yesterday the patient remains on Airvo 60 L with an FiO2 of 90% with a pulse ox of 96%. No sputum production. No chest pain. No interval worsening shortness of breath. White cell count at time of 9.1 and a platelet count of 161. CRP is at 4.4. Phosphorus of 4.4 with a magnesium of 2.4. Medication remain unchanged the patient remains on IV Solu-Medrol 60 mg every 6 hours. Remains on IV Rocephin on an empiric basis. Patient was seen and examined today on 06/23/2024, patient is about the same, still requiring Airvo, 90% and 60 L flow, O2 saturation remains marginal chest x-ray continues to show significant disease involving left lung and right lung patient remains on antibiotics and steroids, no major improvement noted his antibiotics remain Rocephin. Not much of a change in the last few days since admission.WBC count is 9.2 hemoglobin is 8.8 electrolytes are normal renal profile is normal, again her chest x-ray is worsening showing persistent left and right infiltrates Seen today on 06/24/2024, clinically the patient is about the same, remains on Airvo high flow and high FiO2 90% and 60 L, patient is comfortable, does not seem to be in distress, however O2 saturation remains marginal, denies any cough or wheezing no fever no chills no hemoptysis, reviewed CT angiogram of the chest from this admission, which showed bilateral multifocal groundglass opacities involving both right lung and left lung, patient has been on antibiotics all along, and there has been no change patient is also on steroids just in case we are dealing with radiation pneumonitis. Patient is not a great candidate at this point to consider bronchoscopy and BAL, however if his condition gets worse that he needs to be intubated then I will definitely perform bronchoscopy and BAL and even possibly biopsy. Time I would recommend that we treat with bronchodilators, antibiotics, and steroids WBC count today is 13.7 hemoglobin is 9.5 basic metabolic profile is normal renal profile is normal Patient was evaluated today on 06/25/2024, remains the same, remains on Airvo, not much of a change except FiO2 went down to 85% and flow remained at 60 L. Patient continues to have shortness of breath with any activity. WBC count is 11.3 hemoglobin 9.3 electrolytes are normal BUN is 29 creatinine 0.63 chest x- ray from few days ago showed persistent left and right sided infiltrates, no major change noted since admission. Patient was seen today on 06/27/2024, patient remains on Airvo again not much of a change desaturates very easily patient had a significant drop in his O2 saturation even just moving out of the bed to a bedside chair, hence I am recommending a CT angiogram to rule out thromboembolic disease. In the meantime that will help us reassess his abnormal findings on previous CT of the chest and previous x-rays of the chest. Labs are basically about the same his CBC is about the same no changes WBC count is 11.3 hemoglobin is 9.3 Seen today on 06/28/2024, patient continues to do poorly, remains on high FiO2 utilizing Airvo and nonrebreather mask, CT of the chest showed no evidence of pulmonary embolism and worsening bilateral airspace disease. Patient and were updated on this condition, even suggested considering hospice, is thinking about it. WBC count is 8.3 hemoglobin 8.7 electrolytes are normal marilu l profile is normal bicarb is 36 Patient was seen today on 06/29/2024, basically about the same still requiring high FiO2 with Airvo still marginal at best O2 saturation is very marginal in the low 90s. Patient not making any improvement whatsoever. Yesterday I touched bases with the and with the patient regarding considering hospice, apparently that is not in the picture right now, patient wants to remain full code, and no hospice to be considered at this point. If his condition gets any worse, I made it clear that the patient may require intubation mechanical ventilation, and and are both agreeable. His son today is with him. Informed the patient that his CT angiogram showed no pulmonary embolism but it did show worsening of his airspace disease. WBC count today is 8.3 hemoglobin 8.7 electrolytes are normal renal profile is normal, O2 saturation is 95% on 90% FiO2 and 60 L flow. Progress note dated June 30, 2024. 74-year-old male with a history of lung cancer. The patient is seen today in room 356. Currently, he is on Airvo, with settings of 60 L/min and an FiO2 of 90%. In addition, from time to time, on top of Airvo, he uses a nonrebreather. The patient's N-terminal proBNP, was relatively low, and, the procalcitonin level was normal. I was asked by oncology, why the patient is still hypoxemic. 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 We did make the patient a DO NOT RESUSCITATE patient tonight. He is getting saline at 50 cc an hour. Current labs include a white count 9.7, hemoglobin 9.4, hematocrit 29.2, and a platelet count of 87,000. Sodium 133, potassium 5.4, chlorides 94, CO2 33, BUN 32, creatinine 0.55. Glucose is 150. Progress note dated July 01, 2024. 74-year-old male seen today in room 356. The patient has agreed to speak to hospice. Yesterday when we saw the patient, and his , the patient was made a DO NOT RESUSCITATE. Currently, the patient continues on Airvo, at 60 L/min, and an FiO2 of 90%, plus or minus use of a nonrebreather mask. Is not receiving any IV fluids. Current labs include a sodium 133, potassium 4.8, chlorides 96, CO2 30, BUN 29, creatinine 0.73. Glucose is 241. Calcium is 8.6. The patient's chest x-ray is unchanged. Progress note dated July 02, 2024. 74-year-old male seen today in room 356. The patient's is at the bedside. The patient is laying in bed, mildly tachypneic. He continues on Airvo, with settings of 60 L/min and FiO2 of 90%. In addition, from time to time, he wears a nonrebreather mask over the Airvo cannula. The patient is also getting saline at 50 cc an hour. The patient is a DO NOT RESUSCITATE patient. Today's labs include a white count 6.9, hemoglobin 9.6, hematocrit 29.4, and a platelet count of 102,000. Sodium 133, potassium 4.6, chlorides 97, CO2 33, BUN 26, creatinine 0.57. Calcium is 8.8. Progress note dated July 03, 2024. 74-year-old male again seen in room 356. The patient continues on Airvo, with settings of 60 L/min, and an FiO2 of 90%. In addition, from time to time, on top of the Airvo cannula, he wears a nonrebreather mask. The patient is also g etting saline at 50 cc an hour. According to the nurses, the patient is considering hospice. No new labs today. The patient is very short of breath, with any activity. 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 The patient is too unstable for a biopsy. Progress note dated July 04, 2024. 74-year-old male again seen today in room 356. Family members are in the room. The patient remains on Airvo, 60 L/min, with an FiO2 of 90%. In addition, from time to time he uses the nonrebreather mask over the Airvo cannula, because he is more short of breath. The patient is also getting saline at 50 cc an hour. He is a DO NOT RESUSCITATE patient. He has been seen by hospice, but he has not made a decision about hospice as yet. White count 6, hemoglobin 9.8, hematocrit 29.6, platelet count 95,000. Sodium 132, potassium 4.4, chlorides 96, CO2 33, BUN 31, and creatinine 0.51. Glucose is 273. Progress note dated July 05, 2024. 74-year-old male seen again in room 356. The patient continues on Airvo, with similar settings of 60 L/min, and an FiO2 of 90%. In addition, from time to time, because of shortness of breath, or reductions in saturation, the patient places a nonrebreather mask over the Airvo cannula. The patient is a DO NOT RESUSCITATE patient. The patient is considering hospice but has not made any firm decision. No new labs today other than a 397. Objective - Vital Signs Vital signs: Vital Signs Temp 97.4 F L 07/05/24 08:00 Pulse 76 07/05/24 08:57 Resp 20 07/05/24 08:00 BP 123/75 07/05/24 08:00 Pulse Ox 92 L 07/05/24 08:00 FiO2 90 07/05/24 08:46 Intake & Output 07/04/24 07/05/24 07/05/24 18:59 06:59 18:59 Intake Total 480 Output Total 1200 800 300 Balance -720 -800 -300 Intake: Oral 480 Output: Urine 1200 800 300 Other: Voiding Method External Catheter External Catheter External Catheter - Exam Currently on Airvo, conversational dyspnea. No audible wheezing. No use of accessory muscles. HEENT examination is grossly unremarkable. Mucous membranes are moist. No oral lesions. Neck supple. Full range of motion. No adenopathy thyromegaly or neck vein dis tention. Cardiovascular examination reveals regular rhythm rate. S1-S2 normal. No S3 or S4. No discernible murmur noted. Lungs reveal fine bibasilar crackles. No wheezes or rhonchi. Breath sounds are equal. Abdomen soft bowel sounds are heard. No masses or tenderness. Extremities are intact. No cyanosis clubbing or edema. Skin is without rash or lesion. Neurologic examination is brief but nonfocal. - Labs CBC & Chem 7: 07/04/24 05:32 07/04/24 05:32 Labs: Abnormal Lab Results - Last 24 Hours (Table) 07/04/24 07/04/24 07/04/24 Range/Units 11:11 16:08 20:10 POC Glucose (mg/dL) 273 H 351 H 347 H (70-110) mg/dL 07/05/24 Range/Units 06:01 POC Glucose (mg/dL) 181 H (70-110) mg/dL Assessment and Plan Assessment: Acute severe hypoxemic respiratory failure, likely secondary to radiation pneumonitis/fibrosis, or, lymphangitic carcinomatosis. No evidence of pulmonary embolism, and doubt heart failure/fluid overload, and pneumonia. Acute exacerbation of COPD. Pulmonary adenocarcinoma, with previous left upper lobectomy. Vocal cord paralysis. Chronic anemia. Benign essential hypertension. Obstructive sleep apnea syndrome. Previous history of tobacco use. Plan: Plan dated June 30, 2024. The patient is seen today in room 356. The patient was laying in bed, with the AIRVO device in place. His was at the bedside. I had an honest conversation with the both of them. 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 Bronchoscopy on this patient, would end up with him being placed on mechanical ventilation, which she does not want. We talked about CODE STATUS, and he is now a DNR. I did relay my concerns, to oncology. Prognosis is poor. Plan dated July 01, 2024. The patient is seen again in room 356. He continues on Airvo. The patient is now a DO NOT RESUSCITATE patient. Labs, x-rays, and all medications were reviewed. After reviewing all of the patient's data, I feel that the patient's overall situation is consistent with lymphangitic carcinomatosis, and/or, radiation pneumonitis/fibrosis. I do not believe the patient has an active infection at this time, nor do I feel the patient has a pulmonary embolism. In addition, I do not believe this is fluid overload. We will continue to follow make recommendations. The patient and , are meeting with hospice. The [facility] was outside the door, and is planning to get the patient "anointing of the sick". Plan dated July 02, 2024. The patient is seen today again in room 356. His is at the bedside. The patient continues on Airvo, 60 L/min with an FiO2 of 90%. In addition, because of increasing shortness of breath, the patient has the nonrebreather mask, over the Airvo cannula. The patient is a DNR. The patient apparently has met with hospice, and is considering hospice. The patient's overall prognosis is poor. 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 We will continue to follow, and make recommendations along the way. Prognosis is poor. Plan dated July 03, 2024. The patient is already having no code. He continues on Airvo, at 60 L/min, with an FiO2 of 90%. Labs, x-rays, and medications are reviewed. He also continues on saline at 50 cc an hour. The patient is apparently considering hospice. Additional recommendations and suggestions are forthcoming. The patient is too unstable for any sort of a pulmonary biopsy at this time. Plan dated July 04, 2024. The patient is seen today in room 356. and sister at the bedside. The patient cannot make a decision about hospice. He is a DO NOT RESUSCITATE patient. Labs, x-rays, medications are reviewed. No additional laboratory test should be done on this patient. He has seen hospice, and spoken to them. Additional recommendations and suggestions are forthcoming. Prognosis is poor. Plan dated June 2024. The patient is again seen today in room 356. The patient continues on Airvo, at 60 L/min, with an FiO2 of 90%. The patient has not made any decisions about hospice as yet. He has met with the hospice people. He is a DO NOT RESUSCITATE patient. No new labs today. Should not be done anymore at this point in my opinion. The patient's overall prognosis is poor. 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 The patient is quite short of breath with any activity, and uses the Airvo, +/- nonrebreather mask. Time with Patient: Less than 30
--- NOTE | 2024-07-05 12:59 | P.PN ---
Subjective Progress Note Date: 07/05/24 Hospital Course: 74-year-old male with medical history of stage III pulmonary adenocarcinoma, status post left upper lobectomy in May with no dissection November 2023, chemotherapy, radiation therapy, last radiation 05/24/2024, recent admission for radiation induced pneumonitis discharged 06/12/2024, discharged home on home oxygen and oral steroids. Presented with ongoing worsening shortness of breath with minimal exertion. A follow-up CAT scan of the chest was obtained on 06/18/2024 and there is no evidence of any pulmonary embolism. Of significance is development of bilateral multifocal groundglass pulmonary opacities with organizing changes in the left lung. The groundglass opacities slightly were more prominent compared to the earlier CAT scan especially on the right. Left lung findings are essentially stable. There is also mild to moderate central left-sided bronchiectatic ch anges. reviewed CT angiogram of the chest from this admission, which showed bilateral multifocal groundglass opacities involving both right lung and left lung, Started on antibiotics and steroids on admission but no improvements in his symptoms. Has been on high flow nasal cannula but states its around 90% and 60 L, fluctuating. Patient's CODE STATUS was changed to DNR DNI, hospice consulted. Patient and his family had 3rd meeting with hospice, no final decision. 07/05, plan for another family and friends meeting Pulmonology following, not a candidate for BAL. Oncology following, case disc ussed with pulmonary and cardiology, conclusion is that the most likely cause of patient's inability to recover to baseline respiratory status is lymphogenic spread of the disease due to lack of improvement in antibiotics and steroids, however procedure is very high risk and patient may end up on ventilatory and unable to wean. Pertinent Imaging: none Subjective: No significant changes, had big bowel movement overnight Pertinent positives and negatives as discussed above, a complete review of systems was performed and all other systems are negative. Vitals Signs Reviewed. General: ill Appearing Derm: [warm], [dry] Head: [atraumatic], [normocephalic], [symmetric] Eyes: [EOMI], [no lid lag], [anicteric sclera] Mouth: [no lip lesion], [mucus membranes moist] Cardiovascular: [S1S2 reg], [no murmur] Lungs: Basilar coarse crackles, no wheezes] Abdominal: [soft], [ nontender to palpation], [no guarding], [no appreciable organomegaly] Ext: [no gross muscle atrophy], [no edema], [no contractures] Neuro: [ CN II-XI grossly intact], [no focal neuro deficits] Psych: [Alert], [oriented], [appropriate affect] Data Reviewed Today: Pertinent Labs: No leukocytosis, hemoglobin 9.8, sodium 132, creatinine 0.51, glucose is fairly controlled Assessment and Plan: Severe hypoxic respiratory failure secondary to 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 History of non-small cell lung cancer status post surgery, adjuvant chemo Anemia of chronic disease, likely chemotherapy related Thrombocytopenia acute COPD exacerbation Vocal cord paralysis LÓPEZ History of tobacco use disorder Hyponatremia due to prerenal azotemia and metabolic alkalosis Hyperkalemia, resolved History of hypertension GERD BPH Depression/anxiety constipation, resolved -Pulmonology and oncology following, appreciate recommendations hospice consulted -IVF with NS at 50 cc/h -Medications: Amlodipine 10, losartan hydrochlorothiazide, metoprolol succinate, Xanax, trazodone -Continue breathing treatment, Solu-Medrol 60 mg IV every 6 hours -prognosis is poor, patient is hospice appropriate -considering hospice, no final decision yet, -senna, miralax DVT ppx: Lovenox Code status: DNR/DNI. Anticipated discharge place: Pending clinical stability Objective - Vital Signs Vital signs: Vital Signs Temp 97.4 F L 07/05/24 08:00 Pulse 76 07/05/24 12:38 Resp 20 07/05/24 08:00 BP 123/75 07/05/24 08:00 Pulse Ox 92 L 07/05/24 08:00 FiO2 89 07/05/24 12:27 Intake & Output 07/04/24 07/05/24 07/05/24 18:59 06:59 18:59 Intake Total 480 Output Total 1200 800 300 Balance -720 -800 -300 Intake: Oral 480 Output: Urine 1200 800 300 Other: Voiding Method External Catheter External Catheter External Catheter - Labs CBC & Chem 7: 07/04/24 05:32 07/04/24 05:32 Labs: Abnormal Lab Results - Last 24 Hours (Table) 07/04/24 07/04/24 07/05/24 Range/Units 16:08 20:10 06:01 POC Glucose (mg/dL) 351 H 347 H 181 H (70-110) mg/dL 07/05/24 Range/Units 11:11 POC Glucose (mg/dL) 397 H (70-110) mg/dL
[2024-07-05 16:23] LABS: Glucose,Whole Blood 285 mg/dL (70-110)
[2024-07-05 20:23] LABS: Glucose,Whole Blood 296 mg/dL (70-110)
[2024-07-06 06:15] LABS: Glucose,Whole Blood 191 mg/dL (70-110)
--- NOTE | 2024-07-06 11:18 | P.PN ---
Subjective Progress Note Date: 07/06/24 Principal diagnosis: Respiratory failure. On 06/21/2024, the patient remains on Airvo and overall respiratory status and oxygenation has been unchanged. The patient remains on Airvo 60 L with an FiO2 of 90%. White cell count 16.8 with a hemoglobin of of 9.4 and a platelet count of 179. BUN 26 with a creatinine of 0.6. Voice remains hoarse as the patient is known to have chronic paralysis of the vocal cord. Remains on IV Solu-Medrol 60 mg per 6 hours. Remains on IV Rocephin. No new complaints otherwise for now. On 06/22/2024, the patient is being seen for a follow-up. Overall respiratory status is unchanged compared to yesterday the patient remains on Airvo 60 L with an FiO2 of 90% with a pulse ox of 96%. No sputum production. No chest pain. No interval worsening shortness of breath. White cell count at time of 9.1 and a platelet count of 161. CRP is at 4.4. Phosphorus of 4.4 with a magnesium of 2.4. Medication remain unchanged the patient remains on IV Solu-Medrol 60 mg every 6 hours. Remains on IV Rocephin on an empiric basis. Patient was seen and examined today on 06/23/2024, patient is about the same, still requiring Airvo, 90% and 60 L flow, O2 saturation remains marginal chest x-ray continues to show significant disease involving left lung and right lung patient remains on antibiotics and steroids, no major improvement noted his antibiotics remain Rocephin. Not much of a change in the last few days since admission.WBC count is 9.2 hemoglobin is 8.8 electrolytes are normal renal profile is normal, again her chest x-ray is worsening showing persistent left and right infiltrates Seen today on 06/24/2024, clinically the patient is about the same, remains on Airvo high flow and high FiO2 90% and 60 L, patient is comfortable, does not seem to be in distress, however O2 saturation remains marginal, denies any cough or wheezing no fever no chills no hemoptysis, reviewed CT angiogram of the chest from this admission, which showed bilateral multifocal groundglass opacities involving both right lung and left lung, patient has been on antibiotics all along, and there has been no change patient is also on steroids just in case we are dealing with radiation pneumonitis. Patient is not a great candidate at this point to consider bronchoscopy and BAL, however if his condition gets worse that he needs to be intubated then I will definitely perform bronchoscopy and BAL and even possibly biopsy. Time I would recommend that we treat with bronchodilators, antibiotics, and steroids WBC count today is 13.7 hemoglobin is 9.5 basic metabolic profile is normal renal profile is normal Patient was evaluated today on 06/25/2024, remains the same, remains on Airvo, not much of a change except FiO2 went down to 85% and flow remained at 60 L. Patient continues to have shortness of breath with any activity. WBC count is 11.3 hemoglobin 9.3 electrolytes are normal BUN is 29 creatinine 0.63 chest x- ray from few days ago showed persistent left and right sided infiltrates, no major change noted since admission. Patient was seen today on 06/27/2024, patient remains on Airvo again not much of a change desaturates very easily patient had a significant drop in his O2 saturation even just moving out of the bed to a bedside chair, hence I am recommending a CT angiogram to rule out thromboembolic disease. In the meantime that will help us reassess his abnormal findings on previous CT of the chest and previous x-rays of the chest. Labs are basically about the same his CBC is about the same no changes WBC count is 11.3 hemoglobin is 9.3 Seen today on 06/28/2024, patient continues to do poorly, remains on high FiO2 utilizing Airvo and nonrebreather mask, CT of the chest showed no evidence of pulmonary embolism and worsening bilateral airspace disease. Patient and were updated on this condition, even suggested considering hospice, is thinking about it. WBC count is 8.3 hemoglobin 8.7 electrolytes are normal marilu l profile is normal bicarb is 36 Patient was seen today on 06/29/2024, basically about the same still requiring high FiO2 with Airvo still marginal at best O2 saturation is very marginal in the low 90s. Patient not making any improvement whatsoever. Yesterday I touched bases with the and with the patient regarding considering hospice, apparently that is not in the picture right now, patient wants to remain full code, and no hospice to be considered at this point. If his condition gets any worse, I made it clear that the patient may require intubation mechanical ventilation, and and are both agreeable. His son today is with him. Informed the patient that his CT angiogram showed no pulmonary embolism but it did show worsening of his airspace disease. WBC count today is 8.3 hemoglobin 8.7 electrolytes are normal renal profile is normal, O2 saturation is 95% on 90% FiO2 and 60 L flow. Progress note dated June 30, 2024. 74-year-old male with a history of lung cancer. The patient is seen today in room 356. Currently, he is on Airvo, with settings of 60 L/min and an FiO2 of 90%. In addition, from time to time, on top of Airvo, he uses a nonrebreather. The patient's N-terminal proBNP, was relatively low, and, the procalcitonin level was normal. I was asked by oncology, why the patient is still hypoxemic. 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 We did make the patient a DO NOT RESUSCITATE patient tonight. He is getting saline at 50 cc an hour. Current labs include a white count 9.7, hemoglobin 9.4, hematocrit 29.2, and a platelet count of 87,000. Sodium 133, potassium 5.4, chlorides 94, CO2 33, BUN 32, creatinine 0.55. Glucose is 150. Progress note dated July 01, 2024. 74-year-old male seen today in room 356. The patient has agreed to speak to hospice. Yesterday when we saw the patient, and his , the patient was made a DO NOT RESUSCITATE. Currently, the patient continues on Airvo, at 60 L/min, and an FiO2 of 90%, plus or minus use of a nonrebreather mask. Is not receiving any IV fluids. Current labs include a sodium 133, potassium 4.8, chlorides 96, CO2 30, BUN 29, creatinine 0.73. Glucose is 241. Calcium is 8.6. The patient's chest x-ray is unchanged. Progress note dated July 02, 2024. 74-year-old male seen today in room 356. The patient's is at the bedside. The patient is laying in bed, mildly tachypneic. He continues on Airvo, with settings of 60 L/min and FiO2 of 90%. In addition, from time to time, he wears a nonrebreather mask over the Airvo cannula. The patient is also getting saline at 50 cc an hour. The patient is a DO NOT RESUSCITATE patient. Today's labs include a white count 6.9, hemoglobin 9.6, hematocrit 29.4, and a platelet count of 102,000. Sodium 133, potassium 4.6, chlorides 97, CO2 33, BUN 26, creatinine 0.57. Calcium is 8.8. Progress note dated July 03, 2024. 74-year-old male again seen in room 356. The patient continues on Airvo, with settings of 60 L/min, and an FiO2 of 90%. In addition, from time to time, on top of the Airvo cannula, he wears a nonrebreather mask. The patient is also g etting saline at 50 cc an hour. According to the nurses, the patient is considering hospice. No new labs today. The patient is very short of breath, with any activity. 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 The patient is too unstable for a biopsy. Progress note dated July 04, 2024. 74-year-old male again seen today in room 356. Family members are in the room. The patient remains on Airvo, 60 L/min, with an FiO2 of 90%. In addition, from time to time he uses the nonrebreather mask over the Airvo cannula, because he is more short of breath. The patient is also getting saline at 50 cc an hour. He is a DO NOT RESUSCITATE patient. He has been seen by hospice, but he has not made a decision about hospice as yet. White count 6, hemoglobin 9.8, hematocrit 29.6, platelet count 95,000. Sodium 132, potassium 4.4, chlorides 96, CO2 33, BUN 31, and creatinine 0.51. Glucose is 273. Progress note dated July 05, 2024. 74-year-old male seen again in room 356. The patient continues on Airvo, with similar settings of 60 L/min, and an FiO2 of 90%. In addition, from time to time, because of shortness of breath, or reductions in saturation, the patient places a nonrebreather mask over the Airvo cannula. The patient is a DO NOT RESUSCITATE patient. The patient is considering hospice but has not made any firm decision. Progress note dated July 06, 2024. 74-year-old male seen again, in room 356. He remains on Airvo, 60 L/min, with an FiO2 of 90%. He continues on saline at 50 cc an hour, in addition to Airvo, he will sometimes use a nonrebreather mask, over the Airvo cannula. The patient is a DO NOT RESUSCITATE patient. He has met with hospice, but has not made any decisions in regards to hospice. No new labs today other than a glucose of 191. Objective - Vital Signs Vital signs: Vital Signs Temp 97.5 F L 07/06/24 08:00 Pulse 80 07/06/24 09:29 Resp 20 07/06/24 08:00 BP 112/69 07/06/24 08:00 Pulse Ox 97 07/06/24 08:00 FiO2 88 07/06/24 09:17 Intake & Output 07/05/24 07/06/24 07/06/24 18:59 06:59 18:59 Intake Total 180 400 180 Output Total 1825 1000 Balance -1645 400 -820 Intake: Intake, IV Titration 400 Amount Sodium Chloride 0.9% 1, 400 000 ml @ 50 mls/hr IV . Q20H [facility] Rx#:[id number] Oral 180 180 Output: Urine 1825 1000 Other: Voiding Method External Catheter External Catheter External Catheter # Bowel Movements 1 - Exam Currently on Airvo, conversational dyspnea. No audible wheezing. No use of accessory muscles. HEENT examination is grossly unremarkable. Mucous membranes are moist. No oral lesions. Neck supple. Full range of motion. No adenopathy thyromegaly or neck vein distention. Cardiovascular examination reveals regular rhythm rate. S1-S2 normal. No S3 or S4. No discernible murmur noted. Lungs reveal fine bibasilar crackles. No wheezes or rhonchi. Breath sounds are equal. Abdomen soft bowel sounds are heard. No masses or tenderness. Extremities are intact. No cyanosis clubbing or edema. Skin is without rash or lesion. Neurologic examination is brief but nonfocal. - Labs CBC & Chem 7: 07/04/24 05:32 07/04/24 05:32 Labs: Abnormal Lab Results - Last 24 Hours (Table) 07/05/24 07/05/24 07/06/24 Range/Units 16:21 20:22 06:14 POC Glucose (mg/dL) 285 H 296 H 191 H (70-110) mg/dL Assessment and Plan Assessment: Acute severe hypoxemic respiratory failure, likely secondary to radiation pneumonitis/fibrosis, or, lymphangitic carcinomatosis. No evidence of pulmonary embolism, and doubt heart failure/fluid overload, and pneumonia. Acute exacerbation of COPD. Pulmonary adenocarcinoma, with previous left upper lobectomy. Vocal cord paralysis. Chronic anemia. Benign essential hypertension. Obstructive sleep apnea syndrome. Previous history of tobacco use. Plan: Plan dated June 30, 2024. The patient is seen today in room 356. The patient was laying in bed, with the AIRVO device in place. His was at the bedside. I had an honest conversation with the both of them. 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 Bronchoscopy on this patient, would end up with him being placed on mechanical ventilation, which she does not want. We talked about CODE STATUS, and he is now a DNR. I did relay my concerns, to oncology. Prognosis is poor. Plan dated July 01, 2024. The patient is seen again in room 356. He continues on Airvo. The patient is now a DO NOT RESUSCITATE patient. Labs, x-rays, and all medications were reviewed. After reviewing all of the patient's data, I feel that the patient's overall situation is consistent with lymphangitic carcinomatosis, and/or, radiation pneumonitis/fibrosis. I do not believe the patient has an active infection at this time, nor do I feel the patient has a pulmonary embolism. In addition, I do not believe this is fluid overload. We will continue to follow make recommendations. The patient and , are meeting with hospice. The [facility] was outside the door, and is planning to get the patient "anointing of the sick". Plan dated July 02, 2024. The patient is seen today again in room 356. His is at the bedside. The patient continues on Airvo, 60 L/min with an FiO2 of 90%. In addition, because of increasing shortness of breath, the patient has the nonrebreather mask, over the Airvo cannula. The patient is a DNR. The patient apparently has met with hospice, and is considering hospice. The patient's overall prognosis is poor. 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 We will continue to follow, and make recommendations along the way. Prognosis is poor. Plan dated July 03, 2024. The patient is already having no code. He continues on Airvo, at 60 L/min, with an FiO2 of 90%. Labs, x-rays, and medications are reviewed. He also continues on saline at 50 cc an hour. The patient is apparently considering hospice. Additional recommendations and suggestions are forthcoming. The patient is too unstable for any sort of a pulmonary biopsy at this time. Plan dated July 04, 2024. The patient is seen today in room 356. and sister at the bedside. The patient cannot make a decision about hospice. He is a DO NOT RESUSCITATE patient. Labs, x-rays, medications are reviewed. No additional laboratory test should be done on this patient. He has seen hospice, and spoken to them. Additional recommendations and suggestions are forthcoming. Prognosis is poor. Plan dated June 2024. The patient is again seen today in room 356. The patient continues on Airvo, at 60 L/min, with an FiO2 of 90%. The patient has not made any decisions about hospice as yet. He has met with the hospice people. He is a DO NOT RESUSCITATE patient. No new labs today. Should not be done anymore at this point in my opinion. The patient's overall prognosis is poor. 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 The patient is quite short of breath with any activity, and uses the Airvo, +/- nonrebreather mask. Plan dated July 06, 2024. The patient is again seen in room 356. He remains on Airvo at 60 L/min, with an FiO2 of 90%. Labs, x-rays, and medications are reviewed. The patient is a DO NOT RESUSCITATE patient. The patient has met with hospice, but has not made any decisions in regards to hospice. We will continue to follow make recommendations. Which is limited Labs, and x-rays. His prognosis is poor. Time with Patient: Less than 30
[2024-07-06 11:20] LABS: Glucose,Whole Blood 400 mg/dL (70-110)
--- NOTE | 2024-07-06 12:04 | P.PN ---
Subjective Progress Note Date: 07/06/24 Hospital Course: Hospital Course: 74-year-old male with medical history of stage III pulmonary adenocarcinoma, status post left upper lobectomy in May with no dissection November 2023, chemotherapy, radiation therapy, last radiation 05/24/2024, recent admission for radiation induced pneumonitis discharged 06/12/2024, discharged home on home oxygen and oral steroids. Presented with ongoing worsening shortness of breath with minimal exertion. A follow-up CAT scan of the chest was obtained on 06/18/2024 and there is no evidence of any pulmonary embolism. Of significance is development of bilateral multifocal groundglass pulmonary opacities with organizing changes in the left lung. The groundglass opacities slightly were more prominent compared to the earlier CAT scan especially on the right. Left lung findings are essentially stable. There is also mild to moderate central left-sided bronchiectatic changes. reviewed CT angiogram of the chest from this admission, which showed bilateral multifocal groundglass opacities involving both right lung and left lung, Started on antibiotics and steroids on admission but no improvements in his symptoms. Has been on high flow nasal cannula but states its around 90% and 60 L, fluctuating. Patient's CODE STATUS was changed to DNR DNI, hospice consulted. Patient and his family had 3rd meeting with hospice, no final decision. 07/05, plan for another family and friends meeting. 07/06, limited patient's family understands that he will be passing shortly (hours/days)after we transition to hospice, thus, they want to make sure that his family members are around before they make this final decision Pulmonology following, not a candidate for BAL. Oncology following, case discussed with pulmonary and cardiology, conclusion is that the most likely cause of patient's inability to recover to baseline respiratory status is lymphogenic spread of the disease due to lack of improvement in antibiotics and steroids, however procedure is very high risk and patient may end up on ventilatory and unable to wean. Pertinent Imaging: No new imaging Subjective: No significant changes, patient is very short of breath, no abdominal discomfort today Pertinent positives and negatives as discussed above, a complete review of systems was performed and all other systems are negative. Vitals Signs Reviewed. General: ill Appearing Derm: [warm], [dry] Head: [atraumatic], [normocephalic], [symmetric] Eyes: [EOMI], [no lid lag], [anicteric sclera] Mouth: [no lip lesion], [mucus membranes moist] Cardiovascular: [S1S2 reg], [no murmur] Lungs: Basilar coarse crackles, no wheezes] Abdominal: [soft], [ nontender to palpation], [no guarding], [no appreciable organomegaly] Ext: [no gross muscle atrophy], [no edema], [no contractures] Neuro: [ CN II-XI grossly intact], [no focal neuro deficits] Psych: [Alert], [oriented], [appropriate affect] Data Reviewed Today: Pertinent Labs: Hyperglycemic Assessment and Plan:Assessment and Plan: Severe hypoxic respiratory failure secondary to 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 History of non-small cell lung cancer status post surgery, adjuvant chemo Anemia of chronic disease, likely chemotherapy related Thrombocytopenia acute COPD exacerbation Vocal cord paralysis LÓPEZ History of tobacco use disorder Hyponatremia due to prerenal azotemia and metabolic alkalosis Hyperkalemia, resolved History of hypertension GERD BPH Depression/anxiety constipation, resolved -Pulmonology and oncology following, appreciate recommendations hospice consulted -IVF with NS at 50 cc/h -Medications: Amlodipine 10, losartan hydrochlorothiazide, metoprolol succinate, Xanax, trazodone -Continue breathing treatment, Solu-Medrol 60 mg IV every 6 hours -prognosis is poor, patient is hospice appropriate -considering hospice, no final decision yet, -senna, miralax DVT ppx: Lovenox Code status: DNR/DNI. Anticipated discharge place: Pending clinical stability, plan for hospice, pe nding final decision Objective - Vital Signs Vital signs: Vital Signs Temp 97.5 F L 07/06/24 08:00 Pulse 80 07/06/24 09:29 Resp 20 07/06/24 08:00 BP 112/69 07/06/24 08:00 Pulse Ox 97 07/06/24 08:00 FiO2 88 07/06/24 09:17 Intake & Output 07/05/24 07/06/24 07/06/24 18:59 06:59 18:59 Intake Total 180 400 180 Output Total 1825 1000 Balance -1645 400 -820 Intake: Intake, IV Titration 400 Amount Sodium Chloride 0.9% 1, 400 000 ml @ 50 mls/hr IV . Q20H [facility] Rx#:[id number] Oral 180 180 Output: Urine 1825 1000 Other: Voiding Method External Catheter External Catheter External Catheter # Bowel Movements 1 - Labs CBC & Chem 7: 07/04/24 05:32 07/04/24 05:32 Labs: Abnormal Lab Results - Last 24 Hours (Table) 07/05/24 07/05/24 07/06/24 Range/Units 16:21 20:22 06:14 POC Glucose (mg/dL) 285 H 296 H 191 H (70-110) mg/dL 07/06/24 Range/Units 11:18 POC Glucose (mg/dL) 400 H (70-110) mg/dL
[2024-07-06 16:27] LABS: Glucose,Whole Blood 290 mg/dL (70-110)
[2024-07-06 20:10] LABS: Glucose,Whole Blood 214 mg/dL (70-110)
[2024-07-07 06:09] LABS: Glucose,Whole Blood 182 mg/dL (70-110)
[2024-07-07 11:14] LABS: Glucose,Whole Blood 313 mg/dL (70-110)
--- NOTE | 2024-07-07 11:34 | P.PN ---
Subjective Progress Note Date: 07/07/24 Hospital Course: Hospital Course: 74-year-old male with medical history of stage III pulmonary adenocarcinoma, status post left upper lobectomy in May with no dissection November 2023, chemotherapy, radiation therapy, last radiation 05/24/2024, recent admission for radiation induced pneumonitis discharged 06/12/2024, discharged home on home oxygen and oral steroids. Presented with ongoing worsening shortness of breath with minimal exertion. A follow-up CAT scan of the chest was obtained on 06/18/2024 and there is no evidence of any pulmonary embolism. Of significance is development of bilateral multifocal groundglass pulmonary opacities with organizing changes in the left lung. The groundglass opacities slightly were more prominent compared to the earlier CAT scan especially on the right. Left lung findings are essentially stable. There is also mild to moderate central left-sided bronchiectatic changes. reviewed CT angiogram of the chest from this admission, which showed bilateral multifocal groundglass opacities involving both right lung and left lung, Started on antibiotics and steroids on admission but no improvements in his symptoms. Has been on high flow nasal cannula but states its around 90% and 60 L, fluctuating. Patient's CODE STATUS was changed to DNR DNI, hospice consulted. Patient and his family had 3rd meeting with hospice, no final decision. 07/05, plan for another family and friends meeting. 07/06, limited patient's family understands that he will be passing shortly (hours/days)after we transition to hospice, thus, they want to make sure that his family members are around before they make this final decision, 07/07 plan for another meeting with hospice Pulmonology following, not a candidate for BAL. Oncology following, case discussed with pulmonary and cardiology, conclusion is that the most likely cause of patient's inability to recover to baseline respiratory status is lymphogenic spread of the disease due to lack of improvement in antibiotics and steroids, however procedure is very high risk and patient may end up on ventilatory and unable to wean. Pertinent Imaging: No new imaging Subjective: No significant changes, today does not have to use nonrebreather as much, no abdominal discomfort. Pertinent positives and negatives as discussed above, a complete review of systems was performed and all other systems are negative. Vitals Signs Reviewed. General: ill Appearing Derm: [warm], [dry] Head: [atraumatic], [normocephalic], [symmetric] Eyes: [EOMI], [no lid lag], [anicteric sclera] Mouth: [no lip lesion], [mucus membranes moist] Cardiovascular: [S1S2 reg], [no murmur] Lungs: Basilar coarse crackles, no wheezes] Abdominal: [soft], [ nontender to palpation], [no guarding], [no appreciable organomegaly] Ext: [no gross muscle atrophy], [no edema], [no contractures] Neuro: [ CN II-XI grossly intact], [no focal neuro deficits] Psych: [Alert], [oriented], [appropriate affect] Data Reviewed Today: Pertinent Labs: Hyperglycemic Assessment and Plan:Assessment and Plan: Severe hypoxic respiratory failure secondary to 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 History of non-small cell lung cancer status post surgery, adjuvant chemo Anemia of chronic disease, likely chemotherapy related Thrombocytopenia acute COPD exacerbation Vocal cord paralysis LÓPEZ History of tobacco use disorder Hyponatremia due to prerenal azotemia and metabolic alkalosis Hyperkalemia, resolved History of hypertension GERD BPH Depression/anxiety constipation, resolved -Pulmonology and oncology following, appreciate recommendations hospice consulted -IVF with NS at 50 cc/h -Medications: Amlodipine 10, losartan hydrochlorothiazide, metoprolol succinate, Xanax, trazodone -Continue breathing treatment, Solu-Medrol 60 mg IV every 6 hours -prognosis is poor, patient is hospice appropriate -considering hospice, no final decision yet, -senna, miralax DVT ppx: Lovenox Code status: DNR/DNI. Anticipated discharge place: Pending clinical stability, plan for hospice, pending final decision Objective - Vital Signs Vital signs: Vital Signs Temp 98.2 F 07/07/24 08:52 Pulse 88 07/07/24 11:28 Resp 22 07/07/24 08:52 BP 142/72 07/07/24 08:52 Pulse Ox 93 L 07/07/24 11:16 FiO2 80 07/07/24 11:16 Intake & Output 07/06/24 07/07/24 07/07/24 18:59 06:59 18:59 Intake Total 360 240 Output Total 1000 750 Balance -640 -750 240 Intake: Oral 360 240 Output: Urine 1000 750 Other: Voiding Method External Catheter External Catheter External Catheter # Bowel Movements 1 - Labs CBC & Chem 7: 01/24/25 05:32 07/04/24 05:32 Labs: Abnormal Lab Results - Last 24 Hours (Table) 07/06/24 07/06/24 07/07/24 Range/Units 16:26 20:07 06:07 POC Glucose (mg/dL) 290 H 214 H 182 H (70-110) mg/dL 07/07/24 Range/Units 11:09 POC Glucose (mg/dL) 313 H (70-110) mg/dL
--- NOTE | 2024-07-07 13:53 | P.PN ---
Subjective Progress Note Date: 07/07/24 Patient is a 74-year-old male with past medical history significant for stage I II pulmonary adenocarcinoma. He is status post left upper lobectomy with mediastinal lymph node dissection done back in November,. Subsequently, started on chemotherapy and radiation therapy. His oncologist is Dr. Zamora. Last dose of chemotherapy was April,. He follows with Dr. Lancaster for radiation treatments. Last radiation treatment was May 24, 2024. Of note, patient recently admitted and discharged June 12. 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 Procalcitonin level was low. He was discharged on home oxygen and oral steroids. Patient states that his breathing never really returned to baseline. He is severely short of breath with minimal exertion such as getting up to the bathroom. His is at bedside, states his oxygen drops as low as 50%. no signs of CO2 narcosis. Nondistressed. Nontachypneic. No accessory muscle use. He states he has a persistent cough that is congested with minimal to no sputum production. Denies any fevers, chills, chest pain, hemoptysis. Denies any sick contacts. He has been generally weak, and lost an additional 10 pounds over the last month or so. Appetite has been poor. Most recent chest CT done on his recent admission showing diffuse bilateral groundglass opacities, and postsurgical changes in the left lung. No enlarging mediastinal or hilar adenopathy. Chest x-ray that was done last night on his readmission to the hospital continues to show bilateral lung infiltrates greater on the left, left upper portion may be slightly improved. 07/07/2024, the patient remains on Airvo 60 L with an FiO2 of 90%. His current pulse ox is in order of 95 to 98%. Dropped FiO2 down to 80%. Unfortunately, the patient has not done any significant progress over the past 2 weeks. A follow-up CAT scan was obtained on 06/27/2024 and the findings were essentially consistent with diffuse groundglass bilateral pulmonary opacities worse on the right and those findings are new compared to the CAT scan from April 2024. I do suspect that the patient has an acute lung injury probably induced by radiat ion therapy. The patient continues to have similar appearing airspace opacities and catheter changes in the left lung base with a small left-sided pleural effusion. Remains afebrile. Remains on IV steroids. Patient is on Solu-Medrol 60 mg every 6 hours. Rest of the medications remain unchanged. The patient's blood work is showing some steroid-induced hyperglycemia. His last labs are from 07/04/2024. His last chest x-ray is from 06/28/2024. Objective - Vital Signs Vital signs: Vital Signs Temp 98.2 F 07/07/24 08:52 Pulse 79 07/07/24 08:52 Resp 22 07/07/24 08:52 BP 142/72 07/07/24 08:52 Pulse Ox 95 07/07/24 08:52 FiO2 90 07/07/24 08:52 Intake & Output 07/06/24 07/07/24 07/07/24 18:59 06:59 18:59 Intake Total 360 240 Output Total 1000 750 Balance -640 -750 240 Intake: Oral 360 240 Output: Urine 1000 750 Other: Voiding Method External Catheter External Catheter # Bowel Movements 1 - Exam GENERAL EXAM: Alert, 74-year-old well-nourished male, on Airvo at 60 L with an FiO2 of 90% HEAD: Normocephalic and atraumatic EYES: Normal reaction of pupils, equal size. NOSE: Clear with pink turbinates. THROAT: No erythema or exudates. No white plaques or thrush. NECK: No masses, no JVD. CHEST: No chest wall deformity. Previous thoracotomy scar well-approximated LUNGS: Equal air entry with posterior lower right lung with inspiratory crackles, left lower lung diminished to auscultation, anterior expiratory wheezes noted bilaterally. On 10 L high flow nasal cannula, no accessory muscle use or conversational dyspnea or noted respiratory distress.. CVS: S1 and S2 normal with no audible murmur, regular rhythm. No extra heart sounds ABDOMEN: No hepatosplenomegaly, active bowel sounds, no guarding or rigidity. SPINE: No scoliosis or deformity SKIN: No rashes CENTRAL NERVOUS SYSTEM: No focal deficits, tone is normal in all 4 extremities. EXTREMITIES: There is no peripheral edema, clubbing, or cyanosis. Peripheral pulses are intact. - Labs CBC & Chem 7: 07/04/24 05:32 07/04/24 05:32 Labs: Abnormal Lab Results - Last 24 Hours (Table) 07/06/24 07/06/24 07/06/24 Range/Units 11:18 16:26 20:07 POC Glucose (mg/dL) 400 H 290 H 214 H (70-110) mg/dL 07/07/24 Range/Units 06:07 POC Glucose (mg/dL) 182 H (70-110) mg/dL Assessment and Plan Assessment: Acute hypoxemic respiratory failure. CT scan of the chest performed 06/10/2024 revealed groundglass opacities and infiltrate with consolidation in the left upper lobe and right perihilar region. Procalcitonin level previously low. Repeat chest x-ray done on this readmission showing similar diffuse bilateral lung infiltrates/opacities with possible slight improvement in the left upper lung. Repeat CAT scan of the chest on 06/18/2024 shows worsening in groundglass pulmonary filtrates specially on the right. Left sided findings are essentially unchanged. Follow-up CAT scan of the chest from 06/28/2024 shows essentially stable findings would extensive groundglass pulmonary opacities more so on the right. Suspect acute lung injury most likely secondary to radiation therapy to the chest. Infections are felt to be less likely. Progression of lung cancer is felt to be less likely and the patient remains on Airvo 60 L with an FiO2 of 90%. Oxygenation has remained stable over the past 2 weeks without any improvement on interval worsening. COPD Acute on top of chronic dyspnea, secondary to above, Pulmonary adenocarcinoma and the patient is status post left upper lobectomy on 11/14/2023 with a complicated postoperative course. Postop staging was 3B with T2 N2 disease. The next generation genetic sequencing showed no evidence of any targetable mutations. Based on that, the patient received a total of 4 cycles of systemic chemotherapy using carboplatinum and Alimta which she completed on 03/31/2024. He also received adjuvant radiation therapy that he completed on 04/23/2024. Staging CAT scan of the chest and abdomen done on 04/24/2024 showed no evidence of any metastatic disease and that showed essentially postsurgical changes. Based on those findings, it was decided to continue ongoing treatment with durvalumab for a total of 1 year. The patient has not received immunotherapy. History of vocal cord paralysis Anemia, hemoglobin stable Hypertension Obstructive sleep apnea, uses nasal CPAP at home Former smoker History of anxiety Plan: Clinically unchanged on today's evaluation continues to be on high flow oxygen and there is no significant improvement in his oxygenation over the past 2 weeks at least Keep the patient on Airvo 60 L with an FiO2 of 90 %. Gradual wean down FiO2 as tolerated. Suggest dropping the FiO2 down to 80% Continue supplemental oxygen maintain oxygen saturation of 92% or greater Repeat chest x-ray in the morning Repeat labs in the morning Clinically stable without any interval worsening shortness of breath or oxygenation Continue IV Solu-Medrol 60 mg every 6 hours Continue bronchodilators Procalcitonin level is nonelevated Check viral screen was negative We will continue monitoring his condition closely. Poor prognosis based on above-mentioned comorbidities.
[2024-07-07 16:10] LABS: Glucose,Whole Blood 336 mg/dL (70-110)
[2024-07-07 20:00] LABS: Glucose,Whole Blood 261 mg/dL (70-110)
[2024-07-08 06:00] LABS: Glucose,Whole Blood 233 mg/dL (70-110)
--- NOTE | 2024-07-08 09:14 | P.PN ---
Subjective Progress Note Date: 07/08/24 Principal diagnosis: Hospital Course: 74-year-old male with medical history of stage III pulmonary adenocarcinoma, status post left upper lobectomy in May with no dissection November 2023, chemotherapy, radiation therapy, last radiation 05/24/2024, recent admission for radiation induced pneumonitis discharged 06/12/2024, discharged home on home oxygen and oral steroids. Presented with ongoing worsening shortness of breath with minimal exertion. A follow-up CAT scan of the chest was obtained on 06/18/2024 and there is no evidence of any pulmonary embolism. Of significance is development of bilateral multifocal groundglass pulmonary opacities with organizing changes in the left lung. The groundglass opacities slightly were more prominent compared to the earlier CAT scan especially on the right. Left lung findings are essentially stable. There is also mild to moderate central left-sided bronchiectatic changes. reviewed CT angiogram of the chest from this admission, which showed bilateral multifocal groundglass opacities involving both right lung and left lung, Started on antibiotics and steroids on admission but no improvements in his symptoms. Has been on high flow nasal cannula but states its around 90% and 60 L, fluctuating. Patient's CODE STATUS was changed to DNR DNI, hospice consulted. Patient and his family had 3rd meeting with hospice, no final decision. 07/05, plan for another family and friends meeting. 07/06, limited patient's family understands that he will be passing shortly (hours/days)after we transition to hospice, thus, they want to make sure that his family members are around before they make this final decision, 07/07 plan for another meeting with hospice however family had declined. Pulmonology following, not a candidate for BAL. Oncology following, case discussed with pulmonary and cardiology, conclusion is that the most likely cause of patient's inability to recover to baseline respiratory status is lymphogenic spread of the disease due to lack of improvement in antibiotics and steroids. Patient seen and examined. I had met with the patient and his daughter. They had met with hospice yesterday however they had declined hospice and would like to proceed with medical care. Currently at this time the patient is on 80% FiO2 and 60 L a minute of heated high flow. He denies any nausea vomiting Objective - Vital Signs Vital signs: Vital Signs Temp 97.9 F 07/07/24 20:14 Pulse 88 07/08/24 07:39 Resp 20 01/28/25 03:47 BP 123/77 07/08/24 03:47 Pulse Ox 91 L 07/08/24 07:27 FiO2 80 07/08/24 07:27 Intake & Output 07/07/24 07/08/24 07/08/24 18:59 06:59 18:59 Intake Total 480 180 Output Total 900 1050 Balance -420 -1050 180 Weight 82 kg Intake: Oral 480 180 Output: Urine 900 1050 Other: Voiding Method External Catheter External Catheter - Exam General: Male, appears stated age, conversational dyspnea noted Derm: [warm], [dry] Head: [atraumatic], [normocephalic], [symmetric] Eyes: [EOMI], [no lid lag], [anicteric sclera] Mouth: [no lip lesion], [mucus membranes moist] Cardiovascular: [S1S2 reg], [no murmur] Lungs: Clear to auscultation bilaterally on heated high flow oxygen Abdominal: [soft], [ nontender to palpation], [no guarding], [no appreciable organomegaly] Ext: [no gross muscle atrophy], [no edema], [no contractures] Neuro: moving all extremity spontaneously Psych: [Alert], [oriented], [appropriate affect] - Labs CBC & Chem 7: 07/04/24 05:32 07/04/24 05:32 Labs: Abnormal Lab Results - Last 24 Hours (Table) 07/07/24 07/07/24 07/07/24 Range/Units 11:09 16:09 19:58 POC Glucose (mg/dL) 313 H 336 H 261 H (70-110) mg/dL 07/08/24 Range/Units 05:58 POC Glucose (mg/dL) 233 H (70-110) mg/dL Assessment and Plan Assessment: #) Acute hypoxic respiratory failure requiring heated high flow oxygen, this is likely in relation to radiation pneumonitis versus possible lymphgenic carcinomatosis. Infection appears to be less likely at this time. Continue supplemental oxygen currently on heated high flow to maintain SpO2 greater than 90%. Continue IV methylprednisone 60 mg every 6 hours. If the patient is able to have stable oxygen requirements may consider transition to long-term acute care while oxygen requirements continue to decrease, however will anticipate prolonged usage of heated high flow at this time. Continue sliding scale insulin given steroid induced hyperglycemia #) Hx of non small cell lung cancer s/p surgery and chemotherpay #) Anemia of chronic disease, monitor #) Thrombocytopenia #) Primary htn- continue amlodipine 10 mg dialy and losartan/hctz #) Vocal cord paralysis #) LÓPEZ #) Hx of tobacco use #) Hyponatermia, resolved #) Hyperkalemia, resolved #) GERD - continue pepcid 20 mg daily #) BPH- continue tamsulosin #) Depression/anixety. d/c xanax and use prn po ativan for anxiety DVT Ppx: lovenox Anticipate d/c date: Pending clinical status improvement, likely will need LTAC with longterm goal of weening down from heated high flow o2. Time with Patient: Greater than 30
[2024-07-08 11:15] LABS: Glucose,Whole Blood 305 mg/dL (70-110)
[2024-07-08] MEDS: LORazepam 0.5 MG TAB PO PRN (11:50)
[2024-07-08] MEDS: FLUTICASONE NASAL 50MCG/SPRAY 16GM BTL EA NOSTRIL SCH (13:41)
--- NOTE | 2024-07-08 14:05 | P.PN ---
Subjective Progress Note Date: 07/08/24 Patient is a 74-year-old male with past medical history significant for stage I II pulmonary adenocarcinoma. He is status post left upper lobectomy with mediastinal lymph node dissection done back in November,. Subsequently, started on chemotherapy and radiation therapy. His oncologist is Dr. Zamora. Last dose of chemotherapy was April,. He follows with Dr. Lancaster for radiation treatments. Last radiation treatment was May 24, 2024. Of note, patient recently admitted and discharged June 12. 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 Procalcitonin level was low. He was discharged on home oxygen and oral steroids. Patient states that his breathing never really returned to baseline. He is severely short of breath with minimal exertion such as getting up to the bathroom. His is at bedside, states his oxygen drops as low as 50%. no signs of CO2 narcosis. Nondistressed. Nontachypneic. No accessory muscle use. He states he has a persistent cough that is congested with minimal to no sputum production. Denies any fevers, chills, chest pain, hemoptysis. Denies any sick contacts. He has been generally weak, and lost an additional 10 pounds over the last month or so. Appetite has been poor. Most recent chest CT done on his recent admission showing diffuse bilateral groundglass opacities, and postsurgical changes in the left lung. No enlarging mediastinal or hilar adenopathy. Chest x-ray that was done last night on his readmission to the hospital continues to show bilateral lung infiltrates greater on the left, left upper portion may be slightly improved. 07/07/2024, the patient remains on Airvo 60 L with an FiO2 of 90%. His current pulse ox is in order of 95 to 98%. Dropped FiO2 down to 80%. Unfortunately, the patient has not done any significant progress over the past 2 weeks. A follow-up CAT scan was obtained on 06/27/2024 and the findings were essentially consistent with diffuse groundglass bilateral pulmonary opacities worse on the right and those findings are new compared to the CAT scan from April 2024. I do suspect that the patient has an acute lung injury probably induced by radiat ion therapy. The patient continues to have similar appearing airspace opacities and catheter changes in the left lung base with a small left-sided pleural effusion. Remains afebrile. Remains on IV steroids. Patient is on Solu-Medrol 60 mg every 6 hours. Rest of the medications remain unchanged. The patient's blood work is showing some steroid-induced hyperglycemia. His last labs are from 07/04/2024. His last chest x-ray is from 06/28/2024. On 07/08/2024, patient is being seen for a follow-up. Essentially stable probably slightly improved compared to yesterday. The patient remains on Airvo 60 L with an FiO2 of 80% with a pulse ox of 9094%. Will try to drop down the FiO2 down to 70% if possible. Meanwhile, his condition is essentially stable. Unfortunately, we are not seeing any improvement in his oxygenation and the patient remains on IV Solu-Medrol 60 mg every 6 hours. Remains on DuoNeb nebulized treatments [id number]. Rest of the medications are essentially unchanged. No new labs are available from today. No fever. No chest pain. No other complaints otherwise. Objective - Vital Signs Vital signs: Vital Signs Temp 98 F 07/08/24 09:06 Pulse 80 07/08/24 12:01 Resp 20 07/08/24 12:01 BP 133/70 07/08/24 11:53 Pulse Ox 90 L 07/08/24 12:01 FiO2 90 07/08/24 12:01 Intake & Output 07/07/24 07/08/24 07/08/24 18:59 06:59 18:59 Intake Total 480 180 Output Total 900 1050 600 Balance -420 -1050 -420 Weight 82 kg Intake: Oral 480 180 Output: Urine 900 1050 600 Other: Voiding Method External Catheter External Catheter External Catheter - Exam GENERAL EXAM: Alert, 74-year-old well-nourished male, on Airvo at 60 L with an FiO2 of 80% HEAD: Normocephalic and atraumatic EYES: Normal reaction of pupils, equal size. NOSE: Clear with pink turbinates. THROAT: No erythema or exudates. No white plaques or thrush. NECK: No masses, no JVD. CHEST: No chest wall deformity. Previous thoracotomy scar well-approximated LUNGS: Equal air entry with posterior lower right lung with inspiratory crackle s, left lower lung diminished to auscultation, anterior expiratory wheezes noted bilaterally. On 10 L high flow nasal cannula, no accessory muscle use or conversational dyspnea or noted respiratory distress.. CVS: S1 and S2 normal with no audible murmur, regular rhythm. No extra heart sounds ABDOMEN: No hepatosplenomegaly, active bowel sounds, no guarding or rigidity. SPINE: No scoliosis or deformity SKIN: No rashes CENTRAL NERVOUS SYSTEM: No focal deficits, tone is normal in all 4 extremities. EXTREMITIES: There is no peripheral edema, clubbing, or cyanosis. Peripheral pulses are intact. - Labs CBC & Chem 7: 07/04/24 05:32 07/04/24 05:32 Labs: Abnormal Lab Results - Last 24 Hours (Table) 07/07/24 07/07/24 07/08/24 Range/Units 16:09 19:58 05:58 POC Glucose (mg/dL) 336 H 261 H 233 H (70-110) mg/dL 07/08/24 Range/Units 11:14 POC Glucose (mg/dL) 305 H (70-110) mg/dL Assessment and Plan Assessment: Acute hypoxemic respiratory failure. CT scan of the chest performed 06/10/2024 revealed groundglass opacities and infiltrate with consolidation in the left upper lobe and right perihilar region. Procalcitonin level previously low. Repeat chest x-ray done on this readmission showing similar diffuse bilateral lung infiltrates/opacities with possible slight improvement in the left upper lung. Repeat CAT scan of the chest on 06/18/2024 shows worsening in groundglass pulmonary filtrates specially on the right. Left sided findings are essentially unchanged. Follow-up CAT scan of the chest from 06/28/2024 shows essentially stable findings would extensive groundglass pulmonary opacities more so on the right. Suspect acute lung injury most likely secondary to radiation therapy to the chest. Infections are felt to be less likely. Progression of lung cancer is felt to be less likely and the patient remains on Airvo 60 L with an FiO2 of 90%. Oxygenation has remained stable over the past 2 weeks without any improvement on interval worsening. COPD Acute on top of chronic dyspnea, secondary to above, Pulmonary adenocarcinoma and the patient is status post left upper lobectomy on 11/14/2023 with a complicated postoperative course. Postop staging was 3B with T2 N2 disease. The next generation genetic sequencing showed no evidence of any targetable mutations. Based on that, the patient received a total of 4 cycles of systemic chemotherapy using carboplatinum and Alimta which she completed on 03/31/2024. He also received adjuvant radiation therapy that he completed on 04/23/2024. Staging CAT scan of the chest and abdomen done on 04/24/2024 showed no evidence of any metastatic disease and that showed essentially postsurgical changes. Based on those findings, it was decided to continue ongoing treatment with durvalumab for a total of 1 year. The patient has not received immunotherapy. History of vocal cord paralysis Anemia, hemoglobin stable Hypertension Obstructive sleep apnea, uses nasal CPAP at home Former smoker History of anxiety Plan: Clinically Stable and unchanged Keep the patient on Airvo 60 L with an FiO2 of 80 %. Gradual wean down FiO2 as tolerated. Suggest dropping the FiO2 down to 70% if possible Continue supplemental oxygen maintain oxygen saturation of 92% or greater Repeat chest x-ray in the morning Repeat labs in the morning Clinically stable without any interval worsening shortness of breath or oxygenation Continue IV Solu-Medrol 60 mg every 6 hours Continue bronchodilators Procalcitonin level is nonelevated Check viral screen was negative We will continue monitoring his condition closely. Poor prognosis based on above-mentioned comorbidities. Consider transferring this patient to an LTAC as this may end up being a very slow process as the patient continues to be hypoxic post acute lung injury
[2024-07-08 16:26] LABS: Glucose,Whole Blood 294 mg/dL (70-110)
[2024-07-08] MEDS: FUROSEMIDE 10 MG/ML 4 ML VIAL IV STA (19:47)
[2024-07-08 20:24] LABS: Glucose,Whole Blood 231 mg/dL (70-110)
[2024-07-09 06:17] LABS: Glucose,Whole Blood 206 mg/dL (70-110)
[2024-07-09 07:08] LABS: ALT 23 U/L (4-49); AST 19 U/L (17-59); African American GFR (CKD) >90 (>60 ml/min/1.73 sqM); Albumin 2.9 g/dL (3.5-5.0); Alkaline Phosphatase 78 U/L (38-126); Anion Gap 5 mmol/L; Blood Urea Nitrogen 28 mg/dL (9-20); Calcium 8.7 mg/dL (8.4-10.2); Carbon Dioxide 36 mmol/L (22-30); Chloride 91 mmol/L (98-107); Glucose 197 mg/dL (74-99); Non-African American GFR(CKD) >90 (>60 ml/min/1.73 sqM); Potassium 3.7 mmol/L (3.5-5.1); Sodium 132 mmol/L (137-145); Total Protein 5.2 g/dL (6.3-8.2)
[2024-07-09 07:18] LABS: Anisocytosis Slight; Basophils % (A) 0 %; Eosinophils % (A) 1 %; HCT 31.6 % (39.0-53.0); HGB 10.6 gm/dL (13.0-17.5); Lymphocytes # (A) 0.1 k/uL (1.0-4.8); Lymphocytes % (A) 1 %; MCH 30.9 pg (25.0-35.0); MCHC 33.6 g/dL (31.0-37.0); Mean Platelet Volume 8.8; Monocytes # (A) 0.3 k/uL (0-1.0); Monocytes % (A) 7 %; Neutrophils # (A) 4.7 k/uL (1.3-7.7); Neutrophils % (A) 91 %; Platelet Count 65 k/uL (150-450); Poikilocytosis Slight; RBC 3.43 m/uL (4.30-5.90); RDW 18.8 % (11.5-15.5); WBC 5.1 k/uL (3.8-10.6)
--- NOTE | 2024-07-09 08:30 | XR ---
EXAMINATION TYPE: XR chest 1V portable DATE OF EXAM: 07/09/2024 6:40 AM COMPARISON: 06/28/2024 CLINICAL INDICATION: Male, 74 years old with shortness of breath, history of dyspnea, , FINDINGS: Left heart margin obscured by adjacent pleural parenchymal opacity. Extensive patchy and confluent op acities throughout the left lung not significantly changed. Patchy opacities throughout the right ella g shows some interval improvement. IMPRESSION: 1. Patchy confluent airspace disease throughout the left lung relatively similar. 2. Airspace disease throughout the right lung shows some improvement. [facility], , 07/09/2024 8:28 AM
--- NOTE | 2024-07-09 09:26 | P.PN ---
Subjective Progress Note Date: 07/09/24 Principal diagnosis: Hospital Course: 74-year-old male with medical history of stage III pulmonary adenocarcinoma, status post left upper lobectomy in May with no dissection November 2023, chemotherapy, radiation therapy, last radiation 05/24/2024, recent admission for radiation induced pneumonitis discharged 06/12/2024, discharged home on home oxygen and oral steroids. Presented with ongoing worsening shortness of breath with minimal exertion. A follow-up CAT scan of the chest was obtained on 06/18/2024 and there is no evidence of any pulmonary embolism. Of significance is development of bilateral multifocal groundglass pulmonary opacities with organizing changes in the left lung. The groundglass opacities slightly were more prominent compared to the earlier CAT scan especially on the right. Left lung findings are essentially stable. There is also mild to moderate central left-sided bronchiectatic changes. reviewed CT angiogram of the chest from this admission, which showed bilateral multifocal groundglass opacities involving both right lung and left lung, Started on antibiotics and steroids on admission but no improvements in his symptoms. Has been on high flow nasal cannula but states its around 90% and 60 L, fluctuating. Patient's CODE STATUS was changed to DNR DNI, hospice consulted. Patient and his family had 3rd meeting with hospice, no final decision. 07/05, plan for another family and friends meeting. 07/06, limited patient's family understands that he will be passing shortly (hours/days)after we transition to hospice, thus, they want to make sure that his family members are around before they make this final decision, 07/07 plan for another meeting with hospice however family had declined. Pulmonology following, not a candidate for BAL. Oncology following, case discussed with pulmonary and cardiology, conclusion is that the most likely cause of patient's inability to recover to baseline respiratory status is lymphogenic spread of the disease due to lack of improvement in antibiotics and steroids. Patient seen and examined. Yesterday during dinner the patient and daughter reported that the patient had a coughing episode that I suspect may have been aspiration over meatloaf. The patient then had increased oxygen requirements and is currently on 90% oxygen this morning. With bedside pulse oximetry he was saturating 95 to 96% he denies any nausea vomiting Objective - Vital Signs Vital signs: Vital Signs Temp 97.6 F 07/09/24 07:50 Pulse 80 07/09/24 08:15 Resp 24 07/09/24 07:50 BP 117/72 07/09/24 07:50 Pulse Ox 97 07/09/24 07:50 FiO2 90 07/09/24 08:05 Intake & Output 07/08/24 07/09/24 07/09/24 18:59 06:59 18:59 Intake Total 180 180 Output Total 1400 1700 550 Balance -1220 -1700 -370 Intake: Oral 180 180 Output: Urine 1400 1700 550 Other: Voiding Method External Catheter External Catheter External Catheter - Exam General: Male, appears stated age, conversational dyspnea noted Derm: [warm], [dry] Head: [atraumatic], [normocephalic], [symmetric] Eyes: [EOMI], [no lid lag], [anicteric sclera] Mouth: [no lip lesion], [mucus membranes moist] Cardiovascular: [S1S2 reg], [no murmur] Lungs: Clear to auscultation bilaterally on heated high flow oxygen Abdominal: [soft], [ nontender to palpation], [no guarding], [no appreciable organomegaly] Ext: [no gross muscle atrophy], [no edema], [no contractures] Neuro: moving all extremity spontaneously Psych: [Alert], [oriented], [appropriate affect] - Labs CBC & Chem 7: 07/09/24 05:46 07/09/24 05:46 Labs: Abnormal Lab Results - Last 24 Hours (Table) 07/08/24 07/08/24 07/08/24 Range/Units 11:14 16:24 20:23 RBC (4.30-5.90) m/uL Hgb (13.0-17.5) gm/dL Hct (39.0-53.0) % RDW (11.5-15.5) % Plt Count (150-450) k/uL Lymphocytes # (1.0-4.8) k/uL Sodium (137-145) mmol/L Chloride (98-107) mmol/L Carbon Dioxide (22-30) mmol/L BUN (9-20) mg/dL Creatinine (0.66-1.25) mg/dL Glucose (74-99) mg/dL POC Glucose (mg/dL) 305 H 294 H 231 H (70-110) mg/dL Total Protein (6.3-8.2) g/dL Albumin (3.5-5.0) g/dL 07/09/24 07/09/24 07/09/24 Range/Units 05:46 05:46 06:14 RBC 3.43 L (4.30-5.90) m/uL Hgb 10.6 L (13.0-17.5) gm/dL Hct 31.6 L (39.0-53.0) % RDW 18.8 H (11.5-15.5) % Plt Count 65 L (150-450) k/uL Lymphocytes # 0.1 L (1.0-4.8) k/uL Sodium 132 L (137-145) mmol/L Chloride 91 L (98-107) mmol/L Carbon Dioxide 36 H (22-30) mmol/L BUN 28 H (9-20) mg/dL Creatinine 0.45 L (0.66-1.25) mg/dL Glucose 197 H (74-99) mg/dL POC Glucose (mg/dL) 206 H (70-110) mg/dL Total Protein 5.2 L (6.3-8.2) g/dL Albumin 2.9 L (3.5-5.0) g/dL Assessment and Plan Assessment: #) Acute hypoxic respiratory failure requiring heated high flow oxygen, this is likely in relation to radiation pneumonitis versus possible lymphgenic carcinomatosis. Infection appears to be less likely at this time. Continue supplemental oxygen currently on heated high flow to maintain SpO2 greater than 90%. Continue IV methylprednisone 60 mg every 6 hours. Wean down supplemental oxygen to maintain SpO2 greater than 90%. He is currently on 90% FiO2 which can likely be weaned down later today. Continue sliding scale insulin given steroid induced hyperglycemia #) Hx of non small cell lung cancer s/p surgery and chemotherpay #) Anemia of chronic disease, monitor #) Thrombocytopenia #) Primary htn- continue amlodipine 10 mg dialy and losartan/hctz #) Vocal cord paralysis #) LÓPEZ #) Hx of tobacco use #) Hyponatermia, resolved #) Hyperkalemia, resolved #) GERD - continue pepcid 20 mg daily #) BPH- continue tamsulosin #) Depression/anixety. d/c xanax and use prn po ativan for anxiety DVT Ppx: lovenox Anticipate d/c date: Pending clinical status improvement, likely will need LTAC with nursing home goal of weening down from heated high flow o2, will need decreased FiO2 requirements on heated high flow
[2024-07-09 11:16] LABS: Glucose,Whole Blood 277 mg/dL (70-110)
[2024-07-09] MEDS: FUROSEMIDE 10 MG/ML 4 ML VIAL IV STA (12:26)
--- NOTE | 2024-07-09 16:07 | P.PN ---
Subjective Progress Note Date: 07/09/24 Patient is a 74-year-old male with past medical history significant for stage I II pulmonary adenocarcinoma. He is status post left upper lobectomy with mediastinal lymph node dissection done back in November,. Subsequently, started on chemotherapy and radiation therapy. His oncologist is Dr. Zamora. Last dose of chemotherapy was April,. He follows with Dr. Lancaster for radiation treatments. Last radiation treatment was May 24, 2024. Of note, patient recently admitted and discharged June 12. 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 Procalcitonin level was low. He was discharged on home oxygen and oral steroids. Patient states that his breathing never really returned to baseline. He is severely short of breath with minimal exertion such as getting up to the bathroom. His is at bedside, states his oxygen drops as low as 50%. no signs of CO2 narcosis. Nondistressed. Nontachypneic. No accessory muscle use. He states he has a persistent cough that is congested with minimal to no sputum production. Denies any fevers, chills, chest pain, hemoptysis. Denies any sick contacts. He has been generally weak, and lost an additional 10 pounds over the last month or so. Appetite has been poor. Most recent chest CT done on his recent admission showing diffuse bilateral groundglass opacities, and postsurgical changes in the left lung. No enlarging mediastinal or hilar adenopathy. Chest x-ray that was done last night on his readmission to the hospital continues to show bilateral lung infiltrates greater on the left, left upper portion may be slightly improved. 07/07/2024, the patient remains on Airvo 60 L with an FiO2 of 90%. His current pulse ox is in order of 95 to 98%. Dropped FiO2 down to 80%. Unfortunately, the patient has not done any significant progress over the past 2 weeks. A follow-up CAT scan was obtained on 06/27/2024 and the findings were essentially consistent with diffuse groundglass bilateral pulmonary opacities worse on the right and those findings are new compared to the CAT scan from April 2024. I do suspect that the patient has an acute lung injury probably induced by radiat ion therapy. The patient continues to have similar appearing airspace opacities and catheter changes in the left lung base with a small left-sided pleural effusion. Remains afebrile. Remains on IV steroids. Patient is on Solu-Medrol 60 mg every 6 hours. Rest of the medications remain unchanged. The patient's blood work is showing some steroid-induced hyperglycemia. His last labs are from 07/04/2024. His last chest x-ray is from 06/28/2024. On 07/08/2024, patient is being seen for a follow-up. Essentially stable probably slightly improved compared to yesterday. The patient remains on Airvo 60 L with an FiO2 of 80% with a pulse ox of 9094%. Will try to drop down the FiO2 down to 70% if possible. Meanwhile, his condition is essentially stable. Unfortunately, we are not seeing any improvement in his oxygenation and the patient remains on IV Solu-Medrol 60 mg every 6 hours. Remains on DuoNeb nebulized treatments [id number]. Rest of the medications are essentially unchanged. No new labs are available from today. No fever. No chest pain. No other complaints otherwise. On 07/09/2024, the patient is still on Airvo at 60 L and FiO2 was very dropped down to 75%. Pulse ox in order of 92%. Given a dose of diuretics yesterday and the patient received Lasix 40 mg IV yesterday with a negative fluid balance of at least 2.9 L. Another dose of Lasix to be given today to optimize his volume status. Overall respiratory status is unchanged. White cell count is 5.1 with a hemoglobin 10.6 and a platelet count of 65. Electrolytes were noted with a bicarb of 36 and a BUN of 28 and a creatinine of 0.4. No other new complaints otherwise for now. Objective - Vital Signs Vital signs: Vital Signs Temp 97.6 F 07/09/24 07:50 Pulse 82 07/09/24 11:26 Resp 24 07/09/24 07:50 BP 117/72 07/09/24 07:50 Pulse Ox 97 07/09/24 07:50 FiO2 80 07/09/24 11:14 Intake & Output 07/08/24 07/09/24 07/09/24 18:59 06:59 18:59 Intake Total 180 180 Output Total 1400 1700 550 Balance -1220 -1700 -370 Intake: Oral 180 180 Output: Urine 1400 1700 550 Other: Voiding Method External Catheter External Catheter External Catheter - Exam GENERAL EXAM: Alert, 74-year-old well-nourished male, on Airvo at 60 L with an FiO2 of 75 % HEAD: Normocephalic and atraumatic EYES: Normal reaction of pupils, equal size. NOSE: Clear with pink turbinates. THROAT: No erythema or exudates. No white plaques or thrush. NECK: No masses, no JVD. CHEST: No chest wall deformity. Previous thoracotomy scar well-approximated LUNGS: Equal air entry with posterior lower right lung with inspiratory crackles, left lower lung diminished to auscultation, anterior expiratory wheezes noted bilaterally. On 10 L high flow nasal cannula, no accessory muscle use or conversational dyspnea or noted respiratory distress.. CVS: S1 and S2 normal with no audible murmur, regular rhythm. No extra heart sounds ABDOMEN: No hepatosplenomegaly, active bowel sounds, no guarding or rigidity. SPINE: No scoliosis or deformity SKIN: No rashes CENTRAL NERVOUS SYSTEM: No focal deficits, tone is normal in all 4 extremities. EXTREMITIES: There is no peripheral edema, clubbing, or cyanosis. Peripheral pulses are intact. - Labs CBC & Chem 7: 07/09/24 05:46 07/09/24 05:46 Labs: Abnormal Lab Results - Last 24 Hours (Table) 07/08/24 07/08/24 07/09/24 Range/Units 16:24 20:23 05:46 RBC 3.43 L (4.30-5.90) m/uL Hgb 10.6 L (13.0-17.5) gm/dL Hct 31.6 L (39.0-53.0) % RDW 18.8 H (11.5-15.5) % Plt Count 65 L (150-450) k/uL Lymphocytes # 0.1 L (1.0-4.8) k/uL Sodium (137-145) mmol/L Chloride (98-107) mmol/L Carbon Dioxide (22-30) mmol/L BUN (9-20) mg/dL Creatinine (0.66-1.25) mg/dL Glucose (74-99) mg/dL POC Glucose (mg/dL) 294 H 231 H (70-110) mg/dL Total Protein (6.3-8.2) g/dL Albumin (3.5-5.0) g/dL 07/09/24 07/09/24 07/09/24 Range/Units 05:46 06:14 11:15 RBC (4.30-5.90) m/uL Hgb (13.0-17.5) gm/dL Hct (39.0-53.0) % RDW (11.5-15.5) % Plt Count (150-450) k/uL Lymphocytes # (1.0-4.8) k/uL Sodium 132 L (137-145) mmol/L Chloride 91 L (98-107) mmol/L Carbon Dioxide 36 H (22-30) mmol/L BUN 28 H (9-20) mg/dL Creatinine 0.45 L (0.66-1.25) mg/dL Glucose 197 H (74-99) mg/dL POC Glucose (mg/dL) 206 H 277 H (70-110) mg/dL Total Protein 5.2 L (6.3-8.2) g/dL Albumin 2.9 L (3.5-5.0) g/dL Assessment and Plan Assessment: Acute hypoxemic respiratory failure. CT scan of the chest performed 06/10/2024 revealed groundglass opacities and infiltrate with consolidation in the left upper lobe and right perihilar region. Procalcitonin level previously low. Repeat chest x-ray done on this readmission showing similar diffuse bilateral lung infiltrates/opacities with possible slight improvement in the left upper lung. Repeat CAT scan of the chest on 06/18/2024 shows worsening in groundglass pulmonary filtrates specially on the right. Left sided findings are essentially unchanged. Follow-up CAT scan of the chest from 06/28/2024 shows essentially stable findings would extensive groundglass pulmonary opacities more so on the right. Suspect acute lung injury most likely secondary to radiation therapy to the chest. Infections are felt to be less likely. Progression of lung cancer is felt to be less likely and the patient remains on Airvo 60 L with an FiO2 of 75 %. COPD Acute on top of chronic dyspnea, secondary to above, Pulmonary adenocarcinoma and the patient is status post left upper lobectomy on 11/14/2023 with a complicated postoperative course. Postop staging was 3B with T2 N2 disease. The next generation genetic sequencing showed no evidence of any targetable mutations. Based on that, the patient received a total of 4 cycles of systemic chemotherapy using carboplatinum and Alimta which she completed on 03/31/2024. He also received adjuvant radiation therapy that he completed on 04/23/2024. Staging CAT scan of the chest and abdomen done on 04/24/2024 showed no evidence of any metastatic disease and that showed essentially postsurgical changes. Based on those findings, it was decided to continue ongoing treatment with durvalumab for a total of 1 year. The patient has not received immu notherapy. History of vocal cord paralysis Anemia, hemoglobin stable Hypertension Obstructive sleep apnea, uses nasal CPAP at home Former smoker History of anxiety Plan: Clinically Stable and unchanged Keep the patient on Airvo 60 L with an FiO2 of 75 %. Gradual wean down FiO2 as tolerated. Continue diuretics and the patient will be given another dose of Lasix. Will attempt to keep this patient negative fluid balance Continue supplemental oxygen maintain oxygen saturation of 92% or greater Repeat chest x-ray in the morning was noted and findings are essentially unchanged and stable Repeat labs in the morning Clinically stable without any interval worsening shortness of breath or oxygenation Continue IV Solu-Medrol 60 mg every 6 hours Continue bronchodilators Procalcitonin level is nonelevated Check viral screen was negative We will continue monitoring his condition closely. Poor prognosis based on above-mentioned comorbidities. Consider transferring this patient to an LTAC as this may end up being a very slow process as the patient continues to be hypoxic post acute lung injury
[2024-07-09 16:27] LABS: Glucose,Whole Blood 244 mg/dL (70-110)
[2024-07-09 20:33] LABS: Glucose,Whole Blood 311 mg/dL (70-110)
[2024-07-10 06:16] LABS: Glucose,Whole Blood 223 mg/dL (70-110)
[2024-07-10 07:14] LABS: Anisocytosis Slight; Basophils % (A) 0 %; Eosinophils % (A) 0 %; HCT 31.6 % (39.0-53.0); HGB 10.8 gm/dL (13.0-17.5); Lymphocytes # (A) 0.1 k/uL (1.0-4.8); Lymphocytes % (A) 2 %; MCH 31.2 pg (25.0-35.0); MCV 91.8 fL (80.0-100.0); Mean Platelet Volume 8.1; Monocytes # (A) 0.2 k/uL (0-1.0); Monocytes % (A) 4 %; Neutrophils # (A) 4.8 k/uL (1.3-7.7); Neutrophils % (A) 94 %; RBC 3.44 m/uL (4.30-5.90); RDW 18.5 % (11.5-15.5); WBC 5.1 k/uL (3.8-10.6)
[2024-07-10 07:23] LABS: Platelet Count 61 k/uL (150-450)
[2024-07-10 08:26] LABS: African American GFR (CKD) >90 (>60 ml/min/1.73 sqM); Anion Gap 7 mmol/L; Blood Urea Nitrogen 29 mg/dL (9-20); Calcium 8.8 mg/dL (8.4-10.2); Carbon Dioxide 39 mmol/L (22-30); Chloride 86 mmol/L (98-107); Glucose 203 mg/dL (74-99); Non-African American GFR(CKD) >90 (>60 ml/min/1.73 sqM); Potassium 3.6 mmol/L (3.5-5.1); Sodium 132 mmol/L (137-145)
[2024-07-10 11:30] LABS: Glucose,Whole Blood 267 mg/dL (70-110)
[2024-07-10] MEDS: FUROSEMIDE 10 MG/ML 4 ML VIAL IV STA (12:35)
[2024-07-10 16:21] LABS: Glucose,Whole Blood 351 mg/dL (70-110)
--- NOTE | 2024-07-10 17:28 | P.PN ---
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 Pt was discharged home on home oxygen and oral steroids but returned to the emergency department on 06/17/2024 secondary to worsening shortness of breath. CT scan of the chest performed 06/10/2024 revealed groundglass opacities and infiltrate with consolidation in the left upper lobe and right perihilar region. Procalcitonin level previously low. Repeat chest x-ray done on this readmission showing similar diffuse bilateral lung infiltrates/opacities with possible slight improvement in the left upper lung. Repeat CAT scan of the chest on 06/18/2024 shows worsening in groundglass pulmonary filtrates specially on the right. Left sided findings are essentially unchanged. Follow-up CAT scan of the chest from 06/28/2024 shows essentially stable findings would extensive groundglass pulmonary opacities more so on the right. Suspect acute lung injury most likely secondary to radiation therapy to the chest. Infections are felt to be less likely. Viral panel negative. Procalcitonin negative at 0.44. Progression of lung cancer is also felt to be less likely and the patient remains on Airvo 60 L with an FiO2 of 75 %. Patient's CODE STATUS was changed to DNR DNI, and hospice was consulted and evaluated. Pt and family met with hospice and declining their services at this time. Pulmonology following, stating patient is not a candidate for BAL and recommending keeping patient on Airvo and gradually wean down as tolerated.. Oncology following, reporting pt is status post surgery and completed adjuvant chemo (carbo/alimta), completed radiation on 04/23/24 and maintenance immunotherapy x1 year has been pending start as pt has never received a dose of immunotherapy. Physical Exam: Patient seen and fully evaluated at bedside this morning. He remains on Airvo with FiO2 75%. Patient currently using exercise bands in bed. He continues to have mild conversational dyspnea and states shortness of breath unchanged. Patient and at bedside expressed hopefulness and positive attitude that are both has been decreased from 90% FiO2 down to 75% this morning. Vital signs reviewed and stable. General: Nontoxic, no distress and appears stated age. Derm: Skin warm and dry, normal coloration for ethnicity. Head: Atraumatic, normocephalic and symmetric. Eyes: EOM's intact, no lid lag, and anicteric sclera Mouth: no lip lesions, mucus membranes moist Cardiovascular: regular rate and rhythm with normal S1S2, no murmur, positive posterior tibial pulses bilaterally, and cap refill < 2 seconds. Lungs: Respirations even, regular, and unlabored on room air. Lungs CTA bilaterally, no rhonchi, no rales, no wheezing, and no accessory muscle usage. Abdominal: soft, nontender to palpation, no guarding, no appreciable organomegaly Ext: ROM intact. No gross muscle atrophy, no edema, no contractures Neuro: Speech clear, face symmetrical and CN II-XII grossly intact with no noted focal neuro deficits Psych: Alert and oriented to person, place, time, and situation. Appropriate and pleasant affect. Assessment and Plan of Care: Acute hypoxic respiratory failure requiring heated high flow oxygen via AirVo, this is likely in relation to radiation pneumonitis versus possible lymphgenic carcinomatosis. Infection appears to be less likely at this time. Continue supplemental oxygen currently on heated high flow Airvo to maintain SpO2 greater than 90% and wean as patient tolerates. Continue IV methylprednisone 60 mg every 6 hours. He is currently on 75% FiO2 which can likely be weaned down later today. Continue sliding scale insulin given steroid induced hyperglycemia Hx of non small cell lung cancer s/p surgery, radiation and chemotherpay -Non-small cell pulmonary adenocarcinoma and the patient is status post left upper lobectomy on 11/14/2023 with a complicated postoperative course. Postop s taging was 3B with T2 N2 disease. The next generation genetic sequencing showed no evidence of any targetable mutations. Based on that, the patient received a total of 4 cycles of systemic chemotherapy using carboplatinum and Alimta which he completed on 03/31/2024. He also received adjuvant radiation therapy that he completed on 04/23/2024. Staging CAT scan of the chest and abdomen done on showed no evidence of any metastatic disease and essentially only revealed postsurgical changes. Based on those findings, it was decided to continue ongoing treatment with durvalumab for a total of 1 year. The patient has not received immunotherapy. Anemia of chronic disease. Stable and at baseline. Will continue to monitor. Thrombocytopenia. Slightly worsening. Possibly reactive. Will continue to monitor with repeat a.m. labs. Hypertension. Monitor vital signs and continue daily medication regimen with amlodipine 10 mg dialy and losartan/hctz 50-12.5 mg 2 tablets twice daily. Vocal cord paralysis. Maintain aspiration precautions. Continue dysphagia level 3 chopped diet with nectar thickened liquids. Hyponatermia. Resolved Hyperkalemia. Resolved GERD. Continue pepcid 20 mg daily BPH. Continue tamsulosin 0.4 mg daily. Depression/anixety. Continue sertraline 50 mg nightly and trazodone 50 mg nightly. Data and imaging reviewed: -Vital signs reviewed. Blood pressure 124/82, heart rate 88, respiratory rate 20, temp 97.5 F, and SpO2 of 93% on Airvo 60 L with FiO2 of 75%. -Morning labs reviewed. CBC showing bicytopenia with hemoglobin of 10.8 and platelet count of 61. BMP showing hypochloremic hyponatremia with sodium of 132, chloride of 86, and elevated bicarb of 39. Blood glucose 203. CODE STATUS DNR/DNI DVT prophylaxis: Lovenox Anticipated discharge date: Pending clinical course Anticipated discharge place: Pending clinical course Patient was seen independently by Nurse Pracitioner. This document was prepared using [employer] dictation software. Please allow for errors in cross country truck driver, while rare they do occur. Frankie Aviles NP rendered care for this patient independently, reviewed the findings and plan as documented in the note above and agree with plan. I did not physically speak with or examine the patient on this date. Objective - Vital Signs Vital signs: Vital Signs Temp 97.5 F L 07/10/24 08:00 Pulse 91 07/10/24 08:00 Resp 20 07/10/24 08:00 BP 136/79 07/10/24 08:00 Pulse Ox 91 L 07/10/24 08:00 FiO2 75 07/10/24 07:37 Intake & Output 07/09/24 07/10/24 07/10/24 18:59 06:59 18:59 Intake Total 360 240 Output Total 2650 300 Balance -2290 -300 240 Intake: Oral 360 240 Output: Urine 2650 300 Other: Voiding Method External Catheter External Catheter - Labs CBC & Chem 7: 07/10/24 05:56 07/10/24 05:56 Labs: Abnormal Lab Results - Last 24 Hours (Table) 07/09/24 07/09/24 07/09/24 Range/Units 11:15 16:25 20:31 RBC (4.30-5.90) m/uL Hgb (13.0-17.5) gm/dL Hct (39.0-53.0) % RDW (11.5-15.5) % Plt Count (150-450) k/uL Lymphocytes # (1.0-4.8) k/uL Sodium (137-145) mmol/L Chloride (98-107) mmol/L Carbon Dioxide (22-30) mmol/L BUN (9-20) mg/dL Creatinine (0.66-1.25) mg/dL Glucose (74-99) mg/dL POC Glucose (mg/dL) 277 H 244 H 311 H (70-110) mg/dL 07/10/24 07/10/24 07/10/24 Range/Units 05:56 05:56 06:15 RBC 3.44 L (4.30-5.90) m/uL Hgb 10.8 L (13.0-17.5) gm/dL Hct 31.6 L (39.0-53.0) % RDW 18.5 H (11.5-15.5) % Plt Count 61 L (150-450) k/uL Lymphocytes # 0.1 L (1.0-4.8) k/uL Sodium 132 L (137-145) mmol/L Chloride 86 L (98-107) mmol/L Carbon Dioxide 39 H (22-30) mmol/L BUN 29 H (9-20) mg/dL Creatinine 0.51 L (0.66-1.25) mg/dL Glucose 203 H (74-99) mg/dL POC Glucose (mg/dL) 223 H (70-110) mg/dL
--- NOTE | 2024-07-10 19:03 | P.PN ---
Subjective Progress Note Date: 07/10/24 Patient is a 74-year-old male with past medical history significant for stage I II pulmonary adenocarcinoma. He is status post left upper lobectomy with mediastinal lymph node dissection done back in November,. Subsequently, started on chemotherapy and radiation therapy. His oncologist is Dr. Zamora. Last dose of chemotherapy was April,. He follows with Dr. Lancaster for radiation treatments. Last radiation treatment was May 24, 2024. Of note, patient recently admitted and discharged June 12. 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 Procalcitonin level was low. He was discharged on home oxygen and oral steroids. Patient states that his breathing never really returned to baseline. He is severely short of breath with minimal exertion such as getting up to the bathroom. His is at bedside, states his oxygen drops as low as 50%. no signs of CO2 narcosis. Nondistressed. Nontachypneic. No accessory muscle use. He states he has a persistent cough that is congested with minimal to no sputum production. Denies any fevers, chills, chest pain, hemoptysis. Denies any sick contacts. He has been generally weak, and lost an additional 10 pounds over the last month or so. Appetite has been poor. Most recent chest CT done on his recent admission showing diffuse bilateral groundglass opacities, and postsurgical changes in the left lung. No enlarging mediastinal or hilar adenopathy. Chest x-ray that was done last night on his readmission to the hospital continues to show bilateral lung infiltrates greater on the left, left upper portion may be slightly improved. 07/07/2024, the patient remains on Airvo 60 L with an FiO2 of 90%. His current pulse ox is in order of 95 to 98%. Dropped FiO2 down to 80%. Unfortunately, the patient has not done any significant progress over the past 2 weeks. A follow-up CAT scan was obtained on 06/27/2024 and the findings were essentially consistent with diffuse groundglass bilateral pulmonary opacities worse on the right and those findings are new compared to the CAT scan from April 2024. I do suspect that the patient has an acute lung injury probably induced by radiat ion therapy. The patient continues to have similar appearing airspace opacities and catheter changes in the left lung base with a small left-sided pleural effusion. Remains afebrile. Remains on IV steroids. Patient is on Solu-Medrol 60 mg every 6 hours. Rest of the medications remain unchanged. The patient's blood work is showing some steroid-induced hyperglycemia. His last labs are from 07/04/2024. His last chest x-ray is from 06/28/2024. On 07/08/2024, patient is being seen for a follow-up. Essentially stable probably slightly improved compared to yesterday. The patient remains on Airvo 60 L with an FiO2 of 80% with a pulse ox of 9094%. Will try to drop down the FiO2 down to 70% if possible. Meanwhile, his condition is essentially stable. Unfortunately, we are not seeing any improvement in his oxygenation and the patient remains on IV Solu-Medrol 60 mg every 6 hours. Remains on DuoNeb nebulized treatments [id number]. Rest of the medications are essentially unchanged. No new labs are available from today. No fever. No chest pain. No other complaints otherwise. On 07/09/2024, the patient is still on Airvo at 60 L and FiO2 was very dropped down to 75%. Pulse ox in order of 92%. Given a dose of diuretics yesterday and the patient received Lasix 40 mg IV yesterday with a negative fluid balance of at least 2.9 L. Another dose of Lasix to be given today to optimize his volume status. Overall respiratory status is unchanged. White cell count is 5.1 with a hemoglobin 10.6 and a platelet count of 65. Electrolytes were noted with a bicarb of 36 and a BUN of 28 and a creatinine of 0.4. No other new complaints othrwise for now. On 07/10/2024, the patient remains on Airvo at 60 L and FiO2 of 75%. Feels well. No interval worsening shortness of breath. Receiving daily diuretics and the patient received Lasix yesterday and the net fluid balance has been -2.5 L over the past 24 hours. Another dose of Lasix to be given today. The white cell count of 5.1 hemoglobin 10.8 and a platelet count of 61. BUN is 29 with a creatinine of 0.5. Sodium levels at 132. Denies having any other new complaints for today. is at the bedside. Objective - Vital Signs Vital signs: Vital Signs Temp 97.5 F L 07/10/24 08:00 Pulse 91 07/10/24 08:00 Resp 20 07/10/24 08:00 BP 136/79 07/10/24 08:00 Pulse Ox 91 L 07/10/24 08:00 FiO2 75 07/10/24 07:37 Intake & Output 07/09/24 07/10/24 07/10/24 18:59 06:59 18:59 Intake Total 360 240 Output Total 2650 300 Balance -2290 -300 240 Intake: Oral 360 240 Output: Urine 2650 300 Other: Voiding Method External Catheter External Catheter - Exam GENERAL EXAM: Alert, 74-year-old well-nourished male, on Airvo at 60 L with an FiO2 of 75 % HEAD: Normocephalic and atraumatic EYES: Normal reaction of pupils, equal size. NOSE: Clear with pink turbinates. THROAT: No erythema or exudates. No white plaques or thrush. NECK: No masses, no JVD. CHEST: No chest wall deformity. Previous thoracotomy scar well-approximated LUNGS: Equal air entry with posterior lower right lung with inspiratory crackles, left lower lung diminished to auscultation, anterior expiratory wheezes noted bilaterally. On 10 L high flow nasal cannula, no accessory muscle use or conversational dyspnea or noted respiratory distress.. CVS: S1 and S2 normal with no audible murmur, regular rhythm. No extra heart sounds ABDOMEN: No hepatosplenomegaly, active bowel sounds, no guarding or rigidity. SPINE: No scoliosis or deformity SKIN: No rashes CENTRAL NERVOUS SYSTEM: No focal deficits, tone is normal in all 4 extremities. EXTREMITIES: There is no peripheral edema, clubbing, or cyanosis. Peripheral pulses are intact. - Labs CBC & Chem 7: 07/10/24 05:56 07/10/24 05:56 Labs: Abnormal Lab Results - Last 24 Hours (Table) 07/09/24 07/09/24 07/09/24 Range/Units 11:15 16:25 20:31 RBC (4.30-5.90) m/uL Hgb (13.0-17.5) gm/dL Hct (39.0-53.0) % RDW (11.5-15.5) % Plt Count (150-450) k/uL Lymphocytes # (1.0-4.8) k/uL Sodium (137-145) mmol/L Chloride (98-107) mmol/L Carbon Dioxide (22-30) mmol/L BUN (9-20) mg/dL Creatinine (0.66-1.25) mg/dL Glucose (74-99) mg/dL POC Glucose (mg/dL) 277 H 244 H 311 H (70-110) mg/dL 07/10/24 07/10/24 07/10/24 Range/Units 05:56 05:56 06:15 RBC 3.44 L (4.30-5.90) m/uL Hgb 10.8 L (13.0-17.5) gm/dL Hct 31.6 L (39.0-53.0) % RDW 18.5 H (11.5-15.5) % Plt Count 61 L (150-450) k/uL Lymphocytes # 0.1 L (1.0-4.8) k/uL Sodium 132 L (137-145) mmol/L Chloride 86 L (98-107) mmol/L Carbon Dioxide 39 H (22-30) mmol/L BUN 29 H (9-20) mg/dL Creatinine 0.51 L (0.66-1.25) mg/dL Glucose 203 H (74-99) mg/dL POC Glucose (mg/dL) 223 H (70-110) mg/dL Assessment and Plan Assessment: Acute hypoxemic respiratory failure. CT scan of the chest performed 06/10/2024 revealed groundglass opacities and infiltrate with consolidation in the left upper lobe and right perihilar region. Procalcitonin level previously low. Repeat chest x-ray done on this readmission showing similar diffuse bilateral lung infiltrates/opacities with possible slight improvement in the left upper lung. Repeat CAT scan of the chest on 06/18/2024 shows worsening in groundglass pulmonary filtrates specially on the right. Left sided findings are essentially unchanged. Follow-up CAT scan of the chest from 06/28/2024 shows essentially stable findings would extensive groundglass pulmonary opacities more so on the right. Suspect acute lung injury most likely secondary to radiation therapy to the chest. Infections are felt to be less likely. Progression of lung cancer is felt to be less likely and the patient remains on Airvo 60 L with an FiO2 of 75 %. COPD Acute on top of chronic dyspnea, secondary to above, Pulmonary adenocarcinoma and the patient is status post left upper lobectomy on 11/14/2023 with a complicated postoperative course. Postop staging was 3B with T2 N2 disease. The next generation genetic sequencing showed no evidence of any targetable mutations. Based on that, the patient received a total of 4 cycles of systemic chemotherapy using carboplatinum and Alimta which she completed on 03/31/2024. He also received adjuvant radiation therapy that he completed on 04/23/2024. Staging CAT scan of the chest and abdomen done on 04/24/2024 showed no evidence of any metastatic disease and that showed essentially postsurgical changes. Based on those findings, it was decided to continue ongoing treatment with durvalumab for a total of 1 year. The patient has not received immunotherapy. History of vocal cord paralysis Anemia, hemoglobin stable Hypertension Obstructive sleep apnea, uses nasal CPAP at home Former smoker History of anxiety Plan: Clinically Stable and unchanged Keep the patient on Airvo 60 L with an FiO2 of 75 %. Gradual wean down FiO2 as tolerated. Continue diuretics and the patient will be given additional dose of Lasix 40 mg IV push Continue supplemental oxygen maintain oxygen saturation of 92% or greater chest x-ray findings are stable Repeat labs in the morning Clinically stable without any interval worsening shortness of breath or oxygenation Continue IV Solu-Medrol 60 mg every 6 hours Continue bronchodilators Procalcitonin level is nonelevated Check viral screen was negative We will continue monitoring his condition closely. Poor prognosis based on above-mentioned comorbidities. Consider transferring this patient to an LTAC as this may end up being a very slow process as the patient continues to be hypoxic post acute lung injury
--- NOTE | 2024-07-10 19:06 | P.PN ---
Subjective Progress Note Date: 07/10/24 Reporting improvement in breathing at todays visit. Continues on Airvo. Has been titrated down to FiO2% 75 O2 60%, SPO2 93%. Pt febrile Objective - Vital Signs Vital signs: Vital Signs Temp 97.5 F L 07/10/24 11:12 Pulse 90 07/10/24 11:32 Resp 20 07/10/24 11:12 BP 124/82 07/10/24 11:12 Pulse Ox 93 L 07/10/24 11:12 FiO2 75 07/10/24 11:22 Intake & Output 07/09/24 07/10/24 07/10/24 18:59 06:59 18:59 Intake Total 360 240 Output Total 2650 300 Balance -2290 -300 240 Intake: Oral 360 240 Output: Urine 2650 300 Other: Voiding Method External Catheter External Catheter # Voids 2 - Constitutional General appearance: Present: average body habitus, no acute distress - EENT Eyes: Present: anicteric sclerae, EOMI ENT: Present: hearing grossly normal - Respiratory Details: breathing mildly labored - Cardiovascular Details: skin warm and dry - Gastrointestinal General gastrointestinal: Present: soft. Absent: tenderness - Integumentary Integumentary: Absent: cyanotic, jaundiced - Musculoskeletal Musculoskeletal: Present: strength equal bilaterally - Psychiatric Psychiatric: Present: A&O x's 3 - Labs CBC & Chem 7: 07/10/24 05:56 07/10/24 05:56 Labs: Abnormal Lab Results - Last 24 Hours (Table) 07/09/24 07/09/24 07/10/24 Range/Units 16:25 20:31 05:56 RBC 3.44 L (4.30-5.90) m/uL Hgb 10.8 L (13.0-17.5) gm/dL Hct 31.6 L (39.0-53.0) % RDW 18.5 H (11.5-15.5) % Plt Count 61 L (150-450) k/uL Lymphocytes # 0.1 L (1.0-4.8) k/uL Sodium (137-145) mmol/L Chloride (98-107) mmol/L Carbon Dioxide (22-30) mmol/L BUN (9-20) mg/dL Creatinine (0.66-1.25) mg/dL Glucose (74-99) mg/dL POC Glucose (mg/dL) 244 H 311 H (70-110) mg/dL 07/10/24 07/10/24 07/10/24 Range/Units 05:56 06:15 11:28 RBC (4.30-5.90) m/uL Hgb (13.0-17.5) gm/dL Hct (39.0-53.0) % RDW (11.5-15.5) % Plt Count (150-450) k/uL Lymphocytes # (1.0-4.8) k/uL Sodium 132 L (137-145) mmol/L Chloride 86 L (98-107) mmol/L Carbon Dioxide 39 H (22-30) mmol/L BUN 29 H (9-20) mg/dL Creatinine 0.51 L (0.66-1.25) mg/dL Glucose 203 H (74-99) mg/dL POC Glucose (mg/dL) 223 H 267 H (70-110) mg/dL - Imaging and Cardiology Chest x-ray: report reviewed Assessment and Plan (1) Acute hypoxemic respiratory failure Current Visit: Yes Status: Acute Priority: High Code(s): J96.01 - ACUTE RESPIRATORY FAILURE WITH HYPOXIA SNOMED Code(s): 418724599 (2) Adenocarcinoma, lung Current Visit: Yes Status: Acute Priority: Medium Code(s): C34.90 - MALIGNANT NEOPLASM OF UNSP PART OF UNSP BRONCHUS OR LUNG SNOMED Code(s): 548770884 (3) Hypoxia Current Visit: Yes Status: Acute Priority: High Code(s): R09.02 - HYPOXEMIA SNOMED Code(s): 052891178 Plan: Acute hypoxemic respiratory failure -Underlying cause differentials including COPD exacerbation versus radiation pneumonitis +/- pneumonia. Also possibility of atypical infection or lymphangetic spread of malignancy. -Respiratory status stable, unchanged. FiO2 90, noting that O2 sat is now dropping-89% today. Pt remains unable to move without drop in O2 saturation. -Case has been discussed with Pulmonary and Radiologist, who reviewed CT chest. After multi-diciplinary review of case, patient's inability to recover to his baseline respiratory status is lymphangitic spread of disease vs acute lung injury r/t radiation. Antibiotics and steroids have been given. Recently pt has been experinecing some improvement in breathing, and O2 has been slowly titrated down. Pulm recommending transfer to LTAC faciltiy. -Dr. Zamora has discussed hospice philosophy with pt and spouse, but they have decided to not pursue hospice at this time Non-small cell lung cancer -Patient is status post surgery, he completed adjuvant chemo (carbo/alimta) no immunotherapy was given. He completed radiation 04/23. Maintenance immunotherapy x1 year has been pending start-pt has never received a dose of immunotherapy Anemia and thrombocytopenia -Hx of chemo exacerbated by acute illness/inflammation -Continue to monitor CBC
[2024-07-10 20:28] LABS: Glucose,Whole Blood 378 mg/dL (70-110)
[2024-07-10 20:28] LABS: Glucose,Whole Blood 340 mg/dL (70-110)
[2024-07-10] MEDS: MELATONIN 5 MG TABLET PO PRN (23:36)
[2024-07-11 06:01] LABS: Glucose,Whole Blood 252 mg/dL (70-110)
[2024-07-11 06:37] LABS: Anisocytosis Slight; HCT 33.3 % (39.0-53.0); HGB 10.9 gm/dL (13.0-17.5); MCH 30.3 pg (25.0-35.0); MCHC 32.8 g/dL (31.0-37.0); MCV 92.3 fL (80.0-100.0); Mean Platelet Volume 8.5; RDW 18.4 % (11.5-15.5); WBC 5.4 k/uL (3.8-10.6)
[2024-07-11 06:44] LABS: Platelet Count 60 k/uL (150-450)
[2024-07-11 06:57] LABS: ALT 23 U/L (4-49); AST 19 U/L (17-59); African American GFR (CKD) >90 (>60 ml/min/1.73 sqM); Albumin 3.1 g/dL (3.5-5.0); Alkaline Phosphatase 98 U/L (38-126); Blood Urea Nitrogen 33 mg/dL (9-20); Calcium 8.9 mg/dL (8.4-10.2); Chloride 84 mmol/L (98-107); Glucose 230 mg/dL (74-99); Non-African American GFR(CKD) >90 (>60 ml/min/1.73 sqM); Potassium 3.9 mmol/L (3.5-5.1); Sodium 130 mmol/L (137-145); Total Protein 5.4 g/dL (6.3-8.2)
[2024-07-11 07:05] LABS: Anion Gap 8 mmol/L
[2024-07-11 07:19] LABS: Carbon Dioxide 38 mmol/L (22-30)
[2024-07-11] MEDS: INSULIN DETEMIR (LEVEMIR) 100 UNIT/ML SYR SQ SCH (09:12)
[2024-07-11 11:37] LABS: Glucose,Whole Blood 386 mg/dL (70-110)
--- NOTE | 2024-07-11 13:48 | P.PN ---
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 Pt was discharged home on home oxygen and oral steroids but returned to the emergency department on 06/17/2024 secondary to worsening shortness of breath. CT scan of the chest performed 06/10/2024 revealed groundglass opacities and infiltrate with consolidation in the left upper lobe and right perihilar region. Procalcitonin level previously low. Repeat chest x-ray done on this readmission showing similar diffuse bilateral lung infiltrates/opacities with possible slight improvement in the left upper lung. Repeat CAT scan of the chest on 06/18/2024 shows worsening in groundglass pulmonary filtrates specially on the right. Left sided findings are essentially unchanged. Follow-up CAT scan of the chest from 06/28/2024 shows essentially stable findings would extensive groundglass pulmonary opacities more so on the right. Suspect acute lung injury most likely secondary to radiation therapy to the chest. Infections are felt to be less likely. Viral panel negative. Procalcitonin negative at 0.44. Progression of lung cancer is also felt to be less likely and the patient remains on Airvo 60 L with an FiO2 of 75 %. Patient's CODE STATUS was changed to DNR DNI, and hospice was consulted and evaluated. Pt and family met with hospice and declining their services at this time. Pulmonology following, stating patient is not a candidate for BAL and recommending keeping patient on Airvo and gradually wean down as tolerated.. Oncology following, reporting pt is status post surgery and completed adjuvant chemo (carbo/alimta), completed radiation on 04/23/24 and maintenance immunotherapy x1 year has been pending start as pt has never received a dose of immunotherapy. Repeat chest x-ray completed 07/09/2024 showing patchy complete airspace disease throughout the left lung relatively unchanged and airspace disease throughout the right lung showing some improvement. Physical Exam: Patient seen and fully evaluated at bedside this morning. Patient remains on Airvo 60L plus FiO2 of 74% satting at 97%, discussed with nursing to turn down FiO2 to 70% continue to monitor. Patient reports having a good morning and requesting to eat fernandez. Patient states fernandez is the 1 thing that he enjoys eating and does not seem to have a difficult time eating it. Vital signs reviewed and stable. General: Nontoxic, no distress and appears stated age. Derm: Skin warm and dry, normal coloration for ethnicity. Head: Atraumatic, normocephalic and symmetric. Eyes: EOM's intact, no lid lag, and anicteric sclera Mouth: no lip lesions, mucus membranes moist Cardiovascular: regular rate and rhythm with normal S1S2, no murmur, positive posterior tibial pulses bilaterally, and cap refill < 2 seconds. Lungs: Respirations with slightly increased work of breathing, no accessory muscle usage at this time. Patient remains on Airvo.. Lungs diminished at bases with soft expiratory wheezes bilaterally. Conversational dyspnea present. Voice is hoarse. Abdominal: soft, nontender to palpation, no guarding, no appreciable organomegaly Ext: ROM intact. No gross muscle atrophy, no edema, no contractures Neuro: Speech clear, face symmetrical and CN II-XII grossly intact with no noted focal neuro deficits Psych: Alert and oriented to person, place, time, and situation. Appropriate and pleasant affect. Assessment and Plan of Care: Acute hypoxic respiratory failure requiring heated high flow oxygen via AirVo, this is likely in relation to radiation pneumonitis versus possible lymphgenic carcinomatosis. Infection appears to be less likely at this time. Continue supplemental oxygen currently on heated high flow Airvo to maintain SpO2 greater than 90% and wean as patient tolerates. Continue IV methylprednisone 60 mg every 6 hours. He is currently on 75% FiO2 which can likely be weaned down later today. Continue sliding scale insulin given steroid induced hyperglycemia Hx of non small cell lung cancer s/p surgery, radiation and chemotherpay -Non-small cell pulmonary adenocarcinoma and the patient is status post left upper lobectomy on 11/14/2023 with a complicated postoperative course. Postop staging was 3B with T2 N2 disease. The next generation genetic sequencing showed no evidence of any targetable mutations. Based on that, the patient received a total of 4 cycles of systemic chemotherapy using carboplatinum and Alimta which he completed on 03/31/2024. He also received adjuvant radiation therapy that he completed on 04/23/2024. Staging CAT scan of the chest and abdomen done on 04/24/2024 showed no evidence of any metastatic disease and essentially only revealed postsurgical changes. Based on those findings, it was decided to continue ongoing treatment with durvalumab for a total of 1 year. The patient has not received immunotherapy. Diabetes mellitus with hyperglycemia. Blood glucose levels elevated ranging from 223-378 over the past 24 hours. Patient remains on glycemic protocol with NovoLog sliding scale and will start patient on Levemir 15 units daily today. Anemia of chronic disease. Stable and at baseline. Will continue to monitor. Thrombocytopenia. Slightly worsening. Possibly reactive. Will continue to monitor with repeat a.m. labs. Hypertension. Monitor vital signs and continue daily medication regimen with amlodipine 10 mg dialy and losartan/hctz 50-12.5 mg 2 tablets twice daily. Vocal cord paralysis. Maintain aspiration precautions. Continue dysphagia level 3 chopped diet with nectar thickened liquids. Hyponatermia. Resolved Hyperkalemia. Resolved GERD. Continue pepcid 20 mg daily BPH. Continue tamsulosin 0.4 mg daily. Depression/anixety. Continue sertraline 50 mg nightly and trazodone 50 mg nightly. Data and imaging reviewed: -Vital signs reviewed. Blood pressure 139/86, heart rate 82, respiratory rate 20, temp 97.6 F, and SpO2 of 97% on 60 L with FiO2 of 74%. -Morning labs reviewed. CBC showing bicytopenia with hemoglobin of 10.9 and platelet count of 60. BMP showing hypochloremic hyponatremia with sodium of 130, chloride of 84, and elevated bicarb of 38. Blood glucose 230. CODE STATUS DNR/DNI DVT prophylaxis: Lovenox Anticipated discharge date: Pending clinical course Anticipated discharge place: Pending clinical course Patient was seen independently by Nurse Pracitioner. This document was prepared using [employer] dictation software. Please allow for errors in crown attacher, while rare they do occur. Frankie Aviles NP rendered care for this patient independently, reviewed the findings and plan as documented in the note above and agree with plan. I did not physically speak with or examine the patient on this date. Objective - Vital Signs Vital signs: Vital Signs Temp 97.1 F L 07/10/24 23:39 Pulse 88 07/11/24 08:15 Resp 18 07/11/24 03:00 BP 135/87 07/11/24 03:00 Pulse Ox 99 07/11/24 03:00 FiO2 75 07/11/24 07:52 Intake & Output 07/10/24 07/11/24 07/11/24 18:59 06:59 18:59 Intake Total 540 Output Total 1400 1000 Balance -860 -1000 Weight 82 kg 82 kg Intake: Oral 540 Output: Urine 1400 1000 Other: Voiding Method External Catheter External Catheter # Voids 2 - Labs CBC & Chem 7: 07/11/24 05:48 07/11/24 05:48 Labs: Abnormal Lab Results - Last 24 Hours (Table) 07/10/24 07/10/24 07/10/24 Range/Units 05:56 11:28 16:20 RBC (4.30-5.90) m/uL Hgb (13.0-17.5) gm/dL Hct (39.0-53.0) % RDW (11.5-15.5) % Plt Count (150-450) k/uL Sodium 132 L (137-145) mmol/L Chloride 86 L (98-107) mmol/L Carbon Dioxide 39 H (22-30) mmol/L BUN 29 H (9-20) mg/dL Creatinine 0.51 L (0.66-1.25) mg/dL Glucose 203 H (74-99) mg/dL POC Glucose (mg/dL) 267 H 351 H (70-110) mg/dL Total Protein (6.3-8.2) g/dL Albumin (3.5-5.0) g/dL 07/10/24 07/10/24 07/11/24 Range/Units 20:24 20:25 05:48 RBC 3.60 L (4.30-5.90) m/uL Hgb 10.9 L (13.0-17.5) gm/dL Hct 33.3 L (39.0-53.0) % RDW 18.4 H (11.5-15.5) % Plt Count 60 L (150-450) k/uL Sodium (137-145) mmol/L Chloride (98-107) mmol/L Carbon Dioxide (22-30) mmol/L BUN (9-20) mg/dL Creatinine (0.66-1.25) mg/dL Glucose (74-99) mg/dL POC Glucose (mg/dL) 378 H 340 H (70-110) mg/dL Total Protein (6.3-8.2) g/dL Albumin (3.5-5.0) g/dL 07/11/24 07/11/24 Range/Units 05:48 05:58 RBC (4.30-5.90) m/uL Hgb (13.0-17.5) gm/dL Hct (39.0-53.0) % RDW (11.5-15.5) % Plt Count (150-450) k/uL Sodium 130 L (137-145) mmol/L Chloride 84 L (98-107) mmol/L Carbon Dioxide 38 H (22-30) mmol/L BUN 33 H (9-20) mg/dL Creatinine 0.55 L (0.66-1.25) mg/dL Glucose 230 H (74-99) mg/dL POC Glucose (mg/dL) 252 H (70-110) mg/dL Total Protein 5.4 L (6.3-8.2) g/dL Albumin 3.1 L (3.5-5.0) g/dL
[2024-07-11] MEDS: FUROSEMIDE 10 MG/ML 2 ML VIAL IV ONE (15:40)
[2024-07-11] MEDS: LORazepam 0.5 MG TAB PO PRN (15:47)
[2024-07-11 16:17] LABS: Glucose,Whole Blood 380 mg/dL (70-110)
--- NOTE | 2024-07-11 18:56 | P.PN ---
Subjective Progress Note Date: 07/11/24 Patient is a 74-year-old male with past medical history significant for stage I II pulmonary adenocarcinoma. He is status post left upper lobectomy with mediastinal lymph node dissection done back in November,. Subsequently, started on chemotherapy and radiation therapy. His oncologist is Dr. Zamora. Last dose of chemotherapy was April,. He follows with Dr. Lancaster for radiation treatments. Last radiation treatment was May 24, 2024. Of note, patient recently admitted and discharged June 12. 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 Procalcitonin level was low. He was discharged on home oxygen and oral steroids. Patient states that his breathing never really returned to baseline. He is severely short of breath with minimal exertion such as getting up to the bathroom. His is at bedside, states his oxygen drops as low as 50%. no signs of CO2 narcosis. Nondistressed. Nontachypneic. No accessory muscle use. He states he has a persistent cough that is congested with minimal to no sputum production. Denies any fevers, chills, chest pain, hemoptysis. Denies any sick contacts. He has been generally weak, and lost an additional 10 pounds over the last month or so. Appetite has been poor. Most recent chest CT done on his recent admission showing diffuse bilateral groundglass opacities, and postsurgical changes in the left lung. No enlarging mediastinal or hilar adenopathy. Chest x-ray that was done last night on his readmission to the hospital continues to show bilateral lung infiltrates greater on the left, left upper portion may be slightly improved. 07/07/2024, the patient remains on Airvo 60 L with an FiO2 of 90%. His current pulse ox is in order of 95 to 98%. Dropped FiO2 down to 80%. Unfortunately, the patient has not done any significant progress over the past 2 weeks. A follow-up CAT scan was obtained on 06/27/2024 and the findings were essentially consistent with diffuse groundglass bilateral pulmonary opacities worse on the right and those findings are new compared to the CAT scan from April 2024. I do suspect that the patient has an acute lung injury probably induced by radiat ion therapy. The patient continues to have similar appearing airspace opacities and catheter changes in the left lung base with a small left-sided pleural effusion. Remains afebrile. Remains on IV steroids. Patient is on Solu-Medrol 60 mg every 6 hours. Rest of the medications remain unchanged. The patient's blood work is showing some steroid-induced hyperglycemia. His last labs are from 07/04/2024. His last chest x-ray is from 06/28/2024. On 07/08/2024, patient is being seen for a follow-up. Essentially stable probably slightly improved compared to yesterday. The patient remains on Airvo 60 L with an FiO2 of 80% with a pulse ox of 9094%. Will try to drop down the FiO2 down to 70% if possible. Meanwhile, his condition is essentially stable. Unfortunately, we are not seeing any improvement in his oxygenation and the patient remains on IV Solu-Medrol 60 mg every 6 hours. Remains on DuoNeb nebulized treatments [id number]. Rest of the medications are essentially unchanged. No new labs are available from today. No fever. No chest pain. No other complaints otherwise. On 07/09/2024, the patient is still on Airvo at 60 L and FiO2 was very dropped down to 75%. Pulse ox in order of 92%. Given a dose of diuretics yesterday and the patient received Lasix 40 mg IV yesterday with a negative fluid balance of at least 2.9 L. Another dose of Lasix to be given today to optimize his volume status. Overall respiratory status is unchanged. White cell count is 5.1 with a hemoglobin 10.6 and a platelet count of 65. Electrolytes were noted with a bicarb of 36 and a BUN of 28 and a creatinine of 0.4. No other new complaints othrwise for now. On 07/10/2024, the patient remains on Airvo at 60 L and FiO2 of 75%. Feels well. No interval worsening shortness of breath. Receiving daily diuretics and the patient received Lasix yesterday and the net fluid balance has been -2.5 L over the past 24 hours. Another dose of Lasix to be given today. The white cell count of 5.1 hemoglobin 10.8 and a platelet count of 61. BUN is 29 with a creatinine of 0.5. Sodium levels at 132. Denies having any other new complaints for today. is at the bedside. On 07/11/2024, the patient is on 60 L and FiO2 of 70%. Continues to demonstrate easy desaturations with mobility and minimal amount of activity. He remains somewhat anxious. He continues to diurese with IV Lasix. He is -1.8 L over the past 24 hours while receiving IV Lasix. The patient meanwhile did have some choking while taking his food material. Based on that, the patient will have a full swallow evaluation. Remains on IV Solu-Medrol. Noted the patient has history of vocal cord paralysis and there is concern for ongoing aspiration. He has dysphagia level 3 chopped diet with nectar thickened liquids. Objective - Vital Signs Vital signs: Vital Signs Temp 97.6 F 07/11/24 08:00 Pulse 82 07/11/24 11:36 Resp 20 07/11/24 08:00 BP 139/86 07/11/24 08:00 Pulse Ox 97 07/11/24 08:00 FiO2 70 07/11/24 11:23 Intake & Output 07/10/24 07/11/24 07/11/24 18:59 06:59 18:59 Intake Total 540 Output Total 1400 1000 Balance -860 -1000 Weight 82 kg 82 kg Intake: Oral 540 Output: Urine 1400 1000 Other: Voiding Method External Catheter External Catheter External Catheter # Voids 2 - Exam GENERAL EXAM: Alert, 74-year-old well-nourished male, on Airvo at 60 L with an FiO2 of 75 % HEAD: Normocephalic and atraumatic EYES: Normal reaction of pupils, equal size. NOSE: Clear with pink turbinates. THROAT: No erythema or exudates. No white plaques or thrush. NECK: No masses, no JVD. CHEST: No chest wall deformity. Previous thoracotomy scar well-approximated LUNGS: Equal air entry with posterior lower right lung with inspiratory crackles, left lower lung diminished to auscultation, anterior expiratory wheezes noted bilaterally. On 10 L high flow nasal cannula, no accessory muscle use or conversational dyspnea or noted respiratory distress.. CVS: S1 and S2 normal with no audible murmur, regular rhythm. No extra heart sounds ABDOMEN: No hepatosplenomegaly, active bowel sounds, no guarding or rigidity. SPINE: No scoliosis or deformity SKIN: No rashes CENTRAL NERVOUS SYSTEM: No focal deficits, tone is normal in all 4 extremities. EXTREMITIES: There is no peripheral edema, clubbing, or cyanosis. Peripheral pulses are intact. - Labs CBC & Chem 7: 07/11/24 05:48 07/11/24 05:48 Labs: Abnormal Lab Results - Last 24 Hours (Table) 07/10/24 07/10/24 07/10/24 Range/Units 16:20 20:24 20:25 RBC (4.30-5.90) m/uL Hgb (13.0-17.5) gm/dL Hct (39.0-53.0) % RDW (11.5-15.5) % Plt Count (150-450) k/uL Sodium (137-145) mmol/L Chloride (98-107) mmol/L Carbon Dioxide (22-30) mmol/L BUN (9-20) mg/dL Creatinine (0.66-1.25) mg/dL Glucose (74-99) mg/dL POC Glucose (mg/dL) 351 H 378 H 340 H (70-110) mg/dL Total Protein (6.3-8.2) g/dL Albumin (3.5-5.0) g/dL 07/11/24 07/11/24 07/11/24 Range/Units 05:48 05:48 05:58 RBC 3.60 L (4.30-5.90) m/uL Hgb 10.9 L (13.0-17.5) gm/dL Hct 33.3 L (39.0-53.0) % RDW 18.4 H (11.5-15.5) % Plt Count 60 L (150-450) k/uL Sodium 130 L (137-145) mmol/L Chloride 84 L (98-107) mmol/L Carbon Dioxide 38 H (22-30) mmol/L BUN 33 H (9-20) mg/dL Creatinine 0.55 L (0.66-1.25) mg/dL Glucose 230 H (74-99) mg/dL POC Glucose (mg/dL) 252 H (70-110) mg/dL Total Protein 5.4 L (6.3-8.2) g/dL Albumin 3.1 L (3.5-5.0) g/dL 07/11/24 Range/Units 11:36 RBC (4.30-5.90) m/uL Hgb (13.0-17.5) gm/dL Hct (39.0-53.0) % RDW (11.5-15.5) % Plt Count (150-450) k/uL Sodium (137-145) mmol/L Chloride (98-107) mmol/L Carbon Dioxide (22-30) mmol/L BUN (9-20) mg/dL Creatinine (0.66-1.25) mg/dL Glucose (74-99) mg/dL POC Glucose (mg/dL) 386 H (70-110) mg/dL Total Protein (6.3-8.2) g/dL Albumin (3.5-5.0) g/dL Assessment and Plan Assessment: Acute hypoxemic respiratory failure. CT scan of the chest performed 06/10/2024 revealed groundglass opacities and infiltrate with consolidation in the left upper lobe and right perihilar region. Procalcitonin level previously low. Repeat chest x-ray done on this readmission showing similar diffuse bilateral lung infiltrates/opacities with possible slight improvement in the left upper lung. Repeat CAT scan of the chest on 06/18/2024 shows worsening in groundglass pulmonary filtrates specially on the right. Left sided findings are essentially unchanged. Follow-up CAT scan of the chest from 06/28/2024 shows essentially stable findings would extensive groundglass pulmonary opacities more so on the right. Suspect acute lung injury most likely secondary to radiation therapy to the chest. Infections are felt to be less likely. Progression of lung cancer is felt to be less likely and the patient remains on Airvo 60 L with an FiO2 of 70 %. COPD Acute on top of chronic dyspnea, secondary to above, Pulmonary adenocarcinoma and the patient is status post left upper lobectomy on 11/14/2023 with a complicated postoperative course. Postop staging was 3B with T2 N2 disease. The next generation genetic sequencing showed no evidence of any targetable mutations. Based on that, the patient received a total of 4 cycles of systemic chemotherapy using carboplatinum and Alimta which she completed on 03/31/2024. He also received adjuvant radiation therapy that he completed on 04/23/2024. Staging CAT scan of the chest and abdomen done on 04/24/2024 showed no evidence of any metastatic disease and that showed essentially postsurgical changes. Based on those findings, it was decided to continue ongoing treatment with durvalumab for a total of 1 year. The patient has not received immunotherapy. History of vocal cord paralysis Dysphagia currently on chopped and nectar thick material. A full swallow evaluation is to follow. Anemia, hemoglobin stable Hypertension Obstructive sleep apnea, uses nasal CPAP at home Former smoker History of anxiety Plan: Clinically Stable and unchanged Keep the patient on Airvo 60 L with an FiO2 of 70 %. Gradual wean down FiO2 as tolerated. Continue diuretics Maintain negative fluid balance Continue supplemental oxygen maintain oxygen saturation of 92% or greater Would like to obtain a follow-up CAT scan of the chest noncontrast with next 24 hours Clinically stable without any interval worsening shortness of breath or oxygenation Continue IV Solu-Medrol 60 mg every 6 hours Continue bronchodilators Procalcitonin level is nonelevated Check viral screen was negative We will continue monitoring his condition closely. Poor prognosis based on above-mentioned comorbidities. Consider transferring this patient to an LTAC as this may end up being a very slow process as the patient continues to be hypoxic post acute lung injury
[2024-07-11 20:18] LABS: Glucose,Whole Blood 359 mg/dL (70-110)
[2024-07-12 06:18] LABS: Glucose,Whole Blood 184 mg/dL (70-110)
[2024-07-12] MEDS: LORazepam 0.5 MG TAB PO PRN (09:01)
[2024-07-12] MEDS ORDERED: ALPRAZolam 1 MG TAB PO PRN (10:36)
--- NOTE | 2024-07-12 10:43 | P.PN ---
Subjective Progress Note Date: 07/12/24 Subjective: Patient seen and examined at bedside. No acute events overnight. Still has not had bowel movement in 5 to 6 days. On Airvo. Pertinent positives and negatives as discussed above, a complete review of systems was performed and all other systems are negative. Vitals Signs Reviewed. General: Nontoxic, no distress, appears at stated age, chronically ill-appearing Derm: Warm, dry Head: Atraumatic, normocephalic, symmetric Eyes: EOMI, no lid lag, anicteric sclera Mouth: No lip lesion, mucus membranes moist Cardiovascular: S1S2 reg, no murmur Lungs: CTA bilateral, no rhonchi, no rales, no accessory muscle use, supplemental oxygen Abdominal: Soft, nontender to palpation, no guarding, no appreciable organomegaly Ext: No gross muscle atrophy, no edema, no contractures Neuro: CN II-XI grossly intact, no focal neuro deficits Psych: Alert, oriented, appropriate affect Data Reviewed Today: Pertinent Labs: Blood sugars range between 1 84-3 80 Imaging: No new imaging Assessment and Plan: Patient is severely ill, needs close monitoring. Prognosis guarded. Acute on chronic hypoxic respiratory failure, likely secondary to radiation pneumonitis versus progressive malignancy Lung adenocarcinoma status post left upper lobectomy, radiation and chemotherapy Vocal cord paralysis -Maintain on Airvo, continue to wean -Pulmonology on oncology following -Patient on IV Solu-Medrol 60 mg every 6 hours, monitor blood sugars Anemia of chronic disease Thrombocytopenia -Continue to monitor Type 2 diabetes Steroid-induced hyperglycemia -Levemir increased yesterday to 15 units, will increase further to 20 units -Continue sliding scale insulin, monitor for hypoglycemia Resolved: Hyponatremia Hyperkalemia Chronic: Depression BPH Hypertension GERD DVT ppx: Lovenox Code status: DNR/DNI Anticipated discharge place: Pending clinical course Anticipated discharge time: Pending clinical course Objective - Vital Signs Vital signs: Vital Signs Temp 97.6 F 07/12/24 08:24 Pulse 73 07/12/24 10:05 Resp 19 07/12/24 10:05 BP 126/78 07/12/24 08:24 Pulse Ox 92 L 07/12/24 08:24 FiO2 70 07/12/24 08:05 Intake & Output 07/11/24 07/12/24 07/12/24 18:59 06:59 18:59 Intake Total 790 120 Output Total 1000 Balance -1000 790 120 Weight 81 kg Intake: Oral 790 120 Output: Urine 1000 Other: Voiding Method External Catheter External Catheter External Catheter - Labs CBC & Chem 7: 07/11/24 05:48 07/11/24 05:48 Labs: Abnormal Lab Results - Last 24 Hours (Table) 07/11/24 07/11/24 07/11/24 Range/Units 11:36 16:15 20:12 POC Glucose (mg/dL) 386 H 380 H 359 H (70-110) mg/dL 07/12/24 Range/Units 06:15 POC Glucose (mg/dL) 184 H (70-110) mg/dL
[2024-07-12 11:20] LABS: Glucose,Whole Blood 174 mg/dL (70-110)
[2024-07-12] MEDS: LORazepam 1 MG TAB PO PRN (11:40)
[2024-07-12] MEDS: INSULIN DETEMIR (LEVEMIR) 100 UNIT/ML SYR SQ STA (11:40)
--- NOTE | 2024-07-12 13:29 | CT ---
EXAMINATION TYPE: CT chest wo con CT DLP: 19.6 mGycm, Automated exposure control for dose reduction was used. DATE OF EXAM: 07/12/2024 1:17 PM COMPARISON: Chest radiograph 07/09/2024, CTA chest 06/27/2024, 06/18/2024, CT chest 06/09/2024 CLINICAL INDICATION:Male, 74 years old with history of hypoxia; PHH, Hypoxia TECHNIQUE: Multiple axial images were obtained through the chest without IV contrast. Lack of IV or o ral contrast limits evaluation of solid and hollow organ viscera. . Coronal and sagittal reformats re viewed. FINDINGS: LUNGS/ PLEURA: Trace left pleural effusion within the lung bases with additional region on the medial aspect of the left upper lung No pneumothorax. Mild paraseptal emphysematous changes. Bronchiectasis identified. Recent scattered interstitial and consolidative opacities throughout the lungs are prior CT. Postsurgical changes from left lung lobectomy with associated volume loss. AIRWAY: Patent and unremarkable.. HEART: The heart is mildly increased in size..No pericardial effusion. MEDIASTINUM: No gross evidence of adenopathy. VASCULATURE: No aortic aneurysm. Atherosclerotic calcification of the aorta and its branches. MUSCULOSKELETAL: No acute osseous abnormalities. Remote healed multiple left-sided rib fractures. Mul tilevel degenerative disc disease. SOFT TISSUES/LYMPH NODES: Unremarkable. LOWER NECK: No significant findings. UPPER ABDOMEN: Pole right renal exophytic 1.7 cm cyst. Redemonstration of bilateral perinephric fat s tranding. Interval development of a single focus of intraluminal gas within the proximal gallbladder. Small hiatal hernia. Right hepatic lobe calcified granuloma. IMPRESSION: 1. Decreased interstitial and consolidative pulmonary opacities from prior CT. 2. Trace left pleural effusion. 3. Postsurgical changes from left lobectomy. [facility], , 07/12/2024 1:27 PM
--- NOTE | 2024-07-12 13:56 | P.PN ---
Subjective Progress Note Date: 07/12/24 Patient is a 74-year-old male with past medical history significant for stage I II pulmonary adenocarcinoma. He is status post left upper lobectomy with mediastinal lymph node dissection done back in November,. Subsequently, started on chemotherapy and radiation therapy. His oncologist is Dr. Zamora. Last dose of chemotherapy was April,. He follows with Dr. Lancaster for radiation treatments. Last radiation treatment was May 24, 2024. Of note, patient recently admitted and discharged June 12. 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 Procalcitonin level was low. He was discharged on home oxygen and oral steroids. Patient states that his breathing never really returned to baseline. He is severely short of breath with minimal exertion such as getting up to the bathroom. His is at bedside, states his oxygen drops as low as 50%. no signs of CO2 narcosis. Nondistressed. Nontachypneic. No accessory muscle use. He states he has a persistent cough that is congested with minimal to no sputum production. Denies any fevers, chills, chest pain, hemoptysis. Denies any sick contacts. He has been generally weak, and lost an additional 10 pounds over the last month or so. Appetite has been poor. Most recent chest CT done on his recent admission showing diffuse bilateral groundglass opacities, and postsurgical changes in the left lung. No enlarging mediastinal or hilar adenopathy. Chest x-ray that was done last night on his readmission to the hospital continues to show bilateral lung infiltrates greater on the left, left upper portion may be slightly improved. 07/07/2024, the patient remains on Airvo 60 L with an FiO2 of 90%. His current pulse ox is in order of 95 to 98%. Dropped FiO2 down to 80%. Unfortunately, the patient has not done any significant progress over the past 2 weeks. A follow-up CAT scan was obtained on 06/27/2024 and the findings were essentially consistent with diffuse groundglass bilateral pulmonary opacities worse on the right and those findings are new compared to the CAT scan from April 2024. I do suspect that the patient has an acute lung injury probably induced by radiat ion therapy. The patient continues to have similar appearing airspace opacities and catheter changes in the left lung base with a small left-sided pleural effusion. Remains afebrile. Remains on IV steroids. Patient is on Solu-Medrol 60 mg every 6 hours. Rest of the medications remain unchanged. The patient's blood work is showing some steroid-induced hyperglycemia. His last labs are from 07/04/2024. His last chest x-ray is from 06/28/2024. On 07/08/2024, patient is being seen for a follow-up. Essentially stable probably slightly improved compared to yesterday. The patient remains on Airvo 60 L with an FiO2 of 80% with a pulse ox of 9094%. Will try to drop down the FiO2 down to 70% if possible. Meanwhile, his condition is essentially stable. Unfortunately, we are not seeing any improvement in his oxygenation and the patient remains on IV Solu-Medrol 60 mg every 6 hours. Remains on DuoNeb nebulized treatments [id number]. Rest of the medications are essentially unchanged. No new labs are available from today. No fever. No chest pain. No other complaints otherwise. On 07/09/2024, the patient is still on Airvo at 60 L and FiO2 was very dropped down to 75%. Pulse ox in order of 92%. Given a dose of diuretics yesterday and the patient received Lasix 40 mg IV yesterday with a negative fluid balance of at least 2.9 L. Another dose of Lasix to be given today to optimize his volume status. Overall respiratory status is unchanged. White cell count is 5.1 with a hemoglobin 10.6 and a platelet count of 65. Electrolytes were noted with a bicarb of 36 and a BUN of 28 and a creatinine of 0.4. No other new complaints othrwise for now. On 07/10/2024, the patient remains on Airvo at 60 L and FiO2 of 75%. Feels well. No interval worsening shortness of breath. Receiving daily diuretics and the patient received Lasix yesterday and the net fluid balance has been -2.5 L over the past 24 hours. Another dose of Lasix to be given today. The white cell count of 5.1 hemoglobin 10.8 and a platelet count of 61. BUN is 29 with a creatinine of 0.5. Sodium levels at 132. Denies having any other new complaints for today. is at the bedside. On 07/11/2024, the patient is on 60 L and FiO2 of 70%. Continues to demonstrate easy desaturations with mobility and minimal amount of activity. He remains somewhat anxious. He continues to diurese with IV Lasix. He is -1.8 L over the past 24 hours while receiving IV Lasix. The patient meanwhile did have some choking while taking his food material. Based on that, the patient will have a full swallow evaluation. Remains on IV Solu-Medrol. Noted the patient has history of vocal cord paralysis and there is concern for ongoing aspiration. He has dysphagia level 3 chopped diet with nectar thickened liquids. 07/12/2024, the patient is being seen for a follow-up. This morning, the patient remains on 60 L of Airvo with an FiO2 of 70%. Denies having any new complaints. Voice remains hoarse. Receiving daily Lasix doses and a fluid balance is negative. Remains on IV Solu-Medrol. Afebrile. Hemodynamically stable. No new labs are available from today. Labs from yesterday were all stable. Recomm ended follow-up CAT scan of the chest to assess progression of the disease and the patient had a follow-up CAT scan that showed decrease in the interstitial and consolidative pulmonary opacities compared to the prior CAT scan. There is a trace left-sided pleural effusion and the patient has postsurgical changes on the left. Will recommend gradual titration of the FiO2. He remains profoundly weak Objective - Vital Signs Vital signs: Vital Signs Temp 97.6 F 07/12/24 08:24 Pulse 84 07/12/24 13:44 Resp 19 07/12/24 13:44 BP 127/83 07/12/24 12:09 Pulse Ox 91 L 07/12/24 12:09 FiO2 60 07/12/24 11:32 Intake & Output 07/11/24 07/12/24 07/12/24 18:59 06:59 18:59 Intake Total 790 360 Output Total 1000 Balance -1000 790 360 Weight 81 kg Intake: Oral 790 360 Output: Urine 1000 Other: Voiding Method External Catheter External Catheter External Catheter - Exam GENERAL EXAM: Alert, 74-year-old well-nourished male, on Airvo at 60 L with an FiO2 of 70 % HEAD: Normocephalic and atraumatic EYES: Normal reaction of pupils, equal size. NOSE: Clear with pink turbinates. THROAT: No erythema or exudates. No white plaques or thrush. NECK: No masses, no JVD. CHEST: No chest wall deformity. Previous thoracotomy scar well-approximated LUNGS: Equal air entry with posterior lower right lung with inspiratory crackles, left lower lung diminished to auscultation, anterior expiratory wheezes noted bilaterally. On 10 L high flow nasal cannula, no accessory muscle use or conversational dyspnea or noted respiratory distress.. CVS: S1 and S2 normal with no audible murmur, regular rhythm. No extra heart sounds ABDOMEN: No hepatosplenomegaly, active bowel sounds, no guarding or rigidity. SPINE: No scoliosis or deformity SKIN: No rashes CENTRAL NERVOUS SYSTEM: No focal deficits, tone is normal in all 4 extremities. EXTREMITIES: There is no peripheral edema, clubbing, or cyanosis. Peripheral pulses are intact. - Labs CBC & Chem 7: 07/11/24 05:48 07/11/24 05:48 Labs: Abnormal Lab Results - Last 24 Hours (Table) 07/11/24 07/11/24 07/12/24 Range/Units 16:15 20:12 06:15 POC Glucose (mg/dL) 380 H 359 H 184 H (70-110) mg/dL 07/12/24 Range/Units 11:16 POC Glucose (mg/dL) 174 H (70-110) mg/dL Assessment and Plan Assessment: Acute hypoxemic respiratory failure. CT scan of the chest performed 06/10/2024 revealed groundglass opacities and infiltrate with consolidation in the left upper lobe and right perihilar region. Procalcitonin level previously low. Repeat chest x-ray done on this readmission showing similar diffuse bilateral lung infiltrates/opacities with possible slight improvement in the left upper lung. Repeat CAT scan of the chest on 06/18/2024 shows worsening in groundglass pulmonary filtrates specially on the right. Left sided findings are essentially unchanged. Follow-up CAT scan of the chest from 06/28/2024 shows essentially stable findings would extensive groundglass pulmonary opacities more so on the right. Suspect acute lung injury most likely secondary to radiation therapy to the chest. Infections are felt to be less likely. Progression of lung cancer is felt to be less likely and the patient remains on Airvo 60 L with an FiO2 of 70 %. Repeat CAT scan of the chest was done and shows some improvement in the infiltrative process in the right lung. The patient continues to be diuresed adequately. COPD Acute on top of chronic dyspnea, secondary to above, Pulmonary adenocarcinoma and the patient is status post left upper lobectomy on 11/14/2023 with a complicated postoperative course. Postop staging was 3B with T2 N2 disease. The next generation genetic sequencing showed no evidence of any targetable mutations. Based on that, the patient received a total of 4 cycles of systemic chemotherapy using carboplatinum and Alimta which she completed on 03/31/2024. He also received adjuvant radiation therapy that he completed on . Staging CAT scan of the chest and abdomen done on 04/24/2024 showed no evidence of any metastatic disease and that showed essentially postsurgical changes. Based on those findings, it was decided to continue ongoing treatment with durvalumab for a total of 1 year. The patient has not received immunotherapy. History of vocal cord paralysis Dysphagia currently on chopped and nectar thick material. A full swallow evaluation is to follow. Anemia, hemoglobin stable Hypertension Obstructive sleep apnea, uses nasal CPAP at home Former smoker History of anxiety Plan: Clinically Stable Keep the patient on Airvo 60 L with an FiO2 of 70 %. Gradual wean down FiO2 as tolerated. Recommend dropping the FiO2 down to 60% Continue diuretics Maintain negative fluid balance Continue supplemental oxygen maintain oxygen saturation of 92% or greater Follow-up CAT scan of the chest was noted Clinically stable without any interval worsening shortness of breath or oxygenation Discontinue the IV Solu-Medrol and put the patient on 60 mg of prednisone daily basis Continue bronchodilators Procalcitonin level is nonelevated Check viral screen was negative We will continue monitoring his condition closely. Poor prognosis based on above-mentioned comorbidities. very slow process as the patient continues to be hypoxic post acute lung injury
[2024-07-12] MEDS: predniSONE 20 MG TAB PO SCH (14:08)
--- NOTE | 2024-07-12 14:35 | P.PN ---
Subjective Progress Note Date: 07/11/24 Principal diagnosis: Adenocarcinoma of the lung -Afebrile, no acute events -Denies any new signs/symptoms. He does note discomfort in the coccyx area being in bed Objective - Vital Signs Vital signs: Vital Signs Temp 97.6 F 07/12/24 08:24 Pulse 84 07/12/24 13:44 Resp 19 07/12/24 13:44 BP 127/83 07/12/24 12:09 Pulse Ox 91 L 07/12/24 12:09 FiO2 60 07/12/24 11:32 Intake & Output 07/11/24 07/12/24 07/12/24 18:59 06:59 18:59 Intake Total 790 360 Output Total 1000 Balance -1000 790 360 Weight 81 kg Intake: Oral 790 360 Output: Urine 1000 Other: Voiding Method External Catheter External Catheter External Catheter - Constitutional Constitutional Comment(s): Lying in bed, fatigued appearing and wearing high flow mask General appearance: Present: no acute distress - EENT Eyes: Present: EOMI - Respiratory Details: Nonlabored breathing - Cardiovascular Details: Warm and well perfused - Gastrointestinal General gastrointestinal: Present: soft. Absent: distended, tenderness - Integumentary Integumentary: Present: pale. Absent: rash - Neurologic Neurologic: Present: CNII-XII intact. Absent: focal deficits - Labs CBC & Chem 7: 07/11/24 05:48 07/11/24 05:48 Labs: Abnormal Lab Results - Last 24 Hours (Table) 07/11/24 07/11/24 07/12/24 Range/Units 16:15 20:12 06:15 POC Glucose (mg/dL) 380 H 359 H 184 H (70-110) mg/dL 07/12/24 Range/Units 11:16 POC Glucose (mg/dL) 174 H (70-110) mg/dL Assessment and Plan (1) Acute hypoxemic respiratory failure Current Visit: Yes Status: Acute Priority: High Code(s): J96.01 - ACUTE RESPIRATORY FAILURE WITH HYPOXIA SNOMED Code(s): 771486135 (2) Adenocarcinoma, lung Current Visit: Yes Status: Acute Priority: Medium Code(s): C34.90 - MALIGNANT NEOPLASM OF UNSP PART OF UNSP BRONCHUS OR LUNG SNOMED Code(s): 046175492 (3) Anemia, normocytic normochromic Current Visit: Yes Status: Acute Code(s): D64.9 - ANEMIA, UNSPECIFIED SNOMED Code(s): 07721344 Plan: Acute hypoxemic respiratory failure -Underlying cause differentials including COPD exacerbation versus radiation pneumonitis +/- pneumonia. Also possibility of atypical infection or lymphangetic spread of malignancy. -Respiratory status stable, unchanged. FiO2 90, noting that O2 sat is now dropping-89% today. Pt remains unable to move without drop in O2 saturation. -Case has been discussed with Pulmonary and Radiologist, who reviewed CT chest. After multi-diciplinary review of case, patient's inability to recover to his baseline respiratory status is lymphangitic spread of disease vs acute lung injury r/t radiation. Antibiotics and steroids have been given. Recently pt has been experinecing some improvement in breathing, and O2 has been slowly titrated down. Pulm recommending transfer to LTAC faciltiy -Hospice was discussed previously, but after further discussions, Arnaud and his would like to continue to see how his breathing progresses as the slow improvement could be more indicative of acute lung injury from radiation Non-small cell lung cancer -Patient is status post surgery, he completed adjuvant chemo (carbo/alimta) no immunotherapy was given. He completed radiation 04/23/2024 -Maintenance immunotherapy with durvalumab monthly for 1 year was in the process of being scheduled prior to admission -Will be considered outpatient pending improvement in respiratory status Anemia and thrombocytopenia -Hx of chemo exacerbated by acute illness/inflammation -Continue to monitor CBC Silke Zamora MD
[2024-07-12 16:19] LABS: Glucose,Whole Blood 318 mg/dL (70-110)
[2024-07-12] MEDS: bisacodyL 10 MG SUPP RECTAL STA (17:32)
[2024-07-12 20:09] LABS: Glucose,Whole Blood 255 mg/dL (70-110)
[2024-07-13 06:10] LABS: Glucose,Whole Blood 90 mg/dL (70-110)
[2024-07-13] MEDS: INSULIN DETEMIR (LEVEMIR) 100 UNIT/ML SYR SQ SCH (07:26)
[2024-07-13 08:29] LABS: ALT 67 U/L (4-49); African American GFR (CKD) >90 (>60 ml/min/1.73 sqM); Albumin 3.2 g/dL (3.5-5.0); Anion Gap 5 mmol/L; Blood Urea Nitrogen 29 mg/dL (9-20); Chloride 86 mmol/L (98-107); Glucose 109 mg/dL (74-99); Non-African American GFR(CKD) >90 (>60 ml/min/1.73 sqM); Sodium 131 mmol/L (137-145); Total Bilirubin 1.3 mg/dL (0.2-1.3); Total Protein 5.7 g/dL (6.3-8.2)
[2024-07-13 08:41] LABS: Carbon Dioxide 40 mmol/L (22-30)
[2024-07-13 08:42] LABS: AST 34 U/L (17-59); Alkaline Phosphatase 86 U/L (38-126); Potassium 4.1 mmol/L (3.5-5.1)
--- NOTE | 2024-07-13 10:30 | P.PN ---
Subjective Progress Note Date: 07/13/24 Subjective: Patient seen and examined at bedside. No acute events overnight. Still has not had bowel movement in 5 to 6 days. On Airvo. Pertinent positives and negatives as discussed above, a complete review of systems was performed and all other systems are negative. Vitals Signs Reviewed. General: Nontoxic, no distress, appears at stated age, chronically ill-appearing Derm: Warm, dry Head: Atraumatic, normocephalic, symmetric Eyes: EOMI, no lid lag, anicteric sclera Mouth: No lip lesion, mucus membranes moist Cardiovascular: S1S2 reg, no murmur Lungs: CTA bilateral, no rhonchi, no rales, no accessory muscle use, supplemental oxygen Abdominal: Soft, nontender to palpation, no guarding, no appreciable organomegaly Ext: No gross muscle atrophy, no edema, no contractures Neuro: CN II-XI grossly intact, no focal neuro deficits Psych: Alert, oriented, appropriate affect Data Reviewed Today: Pertinent Labs: Sodium 131, bicarb 40, creatinine 0.51, blood sugars range between 90-1 09, magnesium 2 Imaging: CT chest showed decrease interstitial and consolidative pulmonary opacities compared to prior CT, trace left pleural effusion Assessment and Plan: Patient is severely ill, needs close monitoring. Prognosis guarded. Acute on chronic hypoxic respiratory failure, likely secondary to radiation pneumonitis versus progressive malignancy Lung adenocarcinoma status post left upper lobectomy, radiation and chemotherapy Vocal cord paralysis -Maintain on Airvo, continue to wean -Pulmonology and oncology following -IV Solu-Medrol changed to 60 mg oral prednisone yesterday by pulmonology Anemia of chronic disease Thrombocytopenia -Continue to monitor, CBC pending Type 2 diabetes Steroid-induced hyperglycemia -Continue Levemir 20 units -Continue sliding scale insulin, monitor for hypoglycemia Constipation, resolved -On MiraLAX 17 g daily Euvolemic hyponatremia -Continue to monitor Resolved: Hyperkalemia Chronic: Depression BPH Hypertension GERD DVT ppx: Lovenox Code status: DNR/DNI Anticipated discharge place: Pending clinical course Anticipated discharge time: Pending clinical course Objective - Vital Signs Vital signs: Vital Signs Temp 97.9 F 07/13/24 04:00 Pulse 83 07/13/24 09:34 Resp 22 07/13/24 09:34 BP 126/87 07/13/24 08:33 Pulse Ox 95 07/13/24 08:33 FiO2 75 07/13/24 08:32 Intake & Output 07/12/24 07/13/24 07/13/24 18:59 06:59 18:59 Intake Total 360 Output Total 300 900 Balance 60 -900 Weight 80.5 kg Intake: Oral 360 Output: Urine 300 900 Other: Voiding Method External Catheter External Catheter External Catheter # Voids 1 # Bowel Movements 1 - Labs CBC & Chem 7: 07/11/24 05:48 07/13/24 08:02 Labs: Abnormal Lab Results - Last 24 Hours (Table) 07/12/24 07/12/24 07/12/24 Range/Units 11:16 16:18 20:07 Sodium (137-145) mmol/L Chloride (98-107) mmol/L Carbon Dioxide (22-30) mmol/L BUN (9-20) mg/dL Creatinine (0.66-1.25) mg/dL Glucose (74-99) mg/dL POC Glucose (mg/dL) 174 H 318 H 255 H (70-110) mg/dL ALT (4-49) U/L Total Protein (6.3-8.2) g/dL Albumin (3.5-5.0) g/dL 07/13/24 Range/Units 08:02 Sodium 131 L (137-145) mmol/L Chloride 86 L (98-107) mmol/L Carbon Dioxide 40 H (22-30) mmol/L BUN 29 H (9-20) mg/dL Creatinine 0.51 L (0.66-1.25) mg/dL Glucose 109 H (74-99) mg/dL POC Glucose (mg/dL) (70-110) mg/dL ALT 67 H (4-49) U/L Total Protein 5.7 L (6.3-8.2) g/dL Albumin 3.2 L (3.5-5.0) g/dL
[2024-07-13 11:26] LABS: Glucose,Whole Blood 171 mg/dL (70-110)
[2024-07-13 11:27] LABS: Anisocytosis Slight; HCT 31.2 % (39.0-53.0); HGB 10.9 gm/dL (13.0-17.5); MCH 31.3 pg (25.0-35.0); MCV 89.5 fL (80.0-100.0); Mean Platelet Volume 7.4; Platelet Count 48 k/uL (150-450); Poikilocytosis Slight; RBC 3.48 m/uL (4.30-5.90); RDW 18.7 % (11.5-15.5); WBC 5.5 k/uL (3.8-10.6)
[2024-07-13 12:17] LABS: Band Neutrophils % 3 %; Lymphocytes # (M) 0.66 k/uL (1.0-4.8); Metamyelocytes # (M) 0.06 k/uL (0); Metamyelocytes % 1 %; Monocytes # (M) 0.17 k/uL (0-1.0); Neutrophils % (M) 83 %; Nucleated Red Blood Cells 0 /100 WBC (0-0); Total Cells Counted 200
--- NOTE | 2024-07-13 13:17 | P.PN ---
Subjective Progress Note Date: 07/13/24 Patient is a 74-year-old male with past medical history significant for stage I II pulmonary adenocarcinoma. He is status post left upper lobectomy with mediastinal lymph node dissection done back in November,. Subsequently, started on chemotherapy and radiation therapy. His oncologist is Dr. Zamora. Last dose of chemotherapy was April,. He follows with Dr. Lancaster for radiation treatments. Last radiation treatment was May 24, 2024. Of note, patient recently admitted and discharged June 12. 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 Procalcitonin level was low. He was discharged on home oxygen and oral steroids. Patient states that his breathing never really returned to baseline. He is severely short of breath with minimal exertion such as getting up to the bathroom. His is at bedside, states his oxygen drops as low as 50%. no signs of CO2 narcosis. Nondistressed. Nontachypneic. No accessory muscle use. He states he has a persistent cough that is congested with minimal to no sputum production. Denies any fevers, chills, chest pain, hemoptysis. Denies any sick contacts. He has been generally weak, and lost an additional 10 pounds over the last month or so. Appetite has been poor. Most recent chest CT done on his recent admission showing diffuse bilateral groundglass opacities, and postsurgical changes in the left lung. No enlarging mediastinal or hilar adenopathy. Chest x-ray that was done last night on his readmission to the hospital continues to show bilateral lung infiltrates greater on the left, left upper portion may be slightly improved. 07/07/2024, the patient remains on Airvo 60 L with an FiO2 of 90%. His current pulse ox is in order of 95 to 98%. Dropped FiO2 down to 80%. Unfortunately, the patient has not done any significant progress over the past 2 weeks. A follow-up CAT scan was obtained on 06/27/2024 and the findings were essentially consistent with diffuse groundglass bilateral pulmonary opacities worse on the right and those findings are new compared to the CAT scan from April 2024. I do suspect that the patient has an acute lung injury probably induced by radiat ion therapy. The patient continues to have similar appearing airspace opacities and catheter changes in the left lung base with a small left-sided pleural effusion. Remains afebrile. Remains on IV steroids. Patient is on Solu-Medrol 60 mg every 6 hours. Rest of the medications remain unchanged. The patient's blood work is showing some steroid-induced hyperglycemia. His last labs are from 07/04/2024. His last chest x-ray is from 06/28/2024. On 07/08/2024, patient is being seen for a follow-up. Essentially stable probably slightly improved compared to yesterday. The patient remains on Airvo 60 L with an FiO2 of 80% with a pulse ox of 9094%. Will try to drop down the FiO2 down to 70% if possible. Meanwhile, his condition is essentially stable. Unfortunately, we are not seeing any improvement in his oxygenation and the patient remains on IV Solu-Medrol 60 mg every 6 hours. Remains on DuoNeb nebulized treatments [id number]. Rest of the medications are essentially unchanged. No new labs are available from today. No fever. No chest pain. No other complaints otherwise. On 07/09/2024, the patient is still on Airvo at 60 L and FiO2 was very dropped down to 75%. Pulse ox in order of 92%. Given a dose of diuretics yesterday and the patient received Lasix 40 mg IV yesterday with a negative fluid balance of at least 2.9 L. Another dose of Lasix to be given today to optimize his volume status. Overall respiratory status is unchanged. White cell count is 5.1 with a hemoglobin 10.6 and a platelet count of 65. Electrolytes were noted with a bicarb of 36 and a BUN of 28 and a creatinine of 0.4. No other new complaints othrwise for now. On 07/10/2024, the patient remains on Airvo at 60 L and FiO2 of 75%. Feels well. No interval worsening shortness of breath. Receiving daily diuretics and the patient received Lasix yesterday and the net fluid balance has been -2.5 L over the past 24 hours. Another dose of Lasix to be given today. The white cell count of 5.1 hemoglobin 10.8 and a platelet count of 61. BUN is 29 with a creatinine of 0.5. Sodium levels at 132. Denies having any other new complaints for today. is at the bedside. On 07/11/2024, the patient is on 60 L and FiO2 of 70%. Continues to demonstrate easy desaturations with mobility and minimal amount of activity. He remains somewhat anxious. He continues to diurese with IV Lasix. He is -1.8 L over the past 24 hours while receiving IV Lasix. The patient meanwhile did have some choking while taking his food material. Based on that, the patient will have a full swallow evaluation. Remains on IV Solu-Medrol. Noted the patient has history of vocal cord paralysis and there is concern for ongoing aspiration. He has dysphagia level 3 chopped diet with nectar thickened liquids. 07/12/2024, the patient is being seen for a follow-up. This morning, the patient remains on 60 L of Airvo with an FiO2 of 70%. Denies having any new complaints. Voice remains hoarse. Receiving daily Lasix doses and a fluid balance is negative. Remains on IV Solu-Medrol. Afebrile. Hemodynamically stable. No new labs are available from today. Labs from yesterday were all stable. Recomm ended follow-up CAT scan of the chest to assess progression of the disease and the patient had a follow-up CAT scan that showed decrease in the interstitial and consolidative pulmonary opacities compared to the prior CAT scan. There is a trace left-sided pleural effusion and the patient has postsurgical changes on the left. Will recommend gradual titration of the FiO2. He remains profoundly weak On 07/13/2024, the patient remains on Airvo with 60 L with an FiO2 of 70%. Respiratory status is unchanged. Unable to wean down FiO2 any further. Still encountering oxygen desaturation. Repeat CAT scan of the chest was done yesterday and the results were favorable. In comparison, there is decrease in the interstitial densities in the right lung and improving the consolidation left lung base. There is a trace left-sided pleural effusion. As such, there is obvious improvement in the CAT scan findings. The white cell count is at 5.12 with a hemoglobin of 10.9 and a platelet count of 48. BUN is 29 and a creatinine of 0.5. Sodium levels at 131. Potassium level is at 4.1. He still on a clear liquid diet. The complete swallow evaluation is to be done tomorrow. The patient himself is feeling weak and is progressively getting more debilitated. Nevertheless, there is no interval worsening in respiratory status. Oxygenation remains impaired as the patient continues to have episode of desaturation with minimal activity. Objective - Vital Signs Vital signs: Vital Signs Temp 97.9 F 07/13/24 04:00 Pulse 83 07/13/24 09:34 Resp 22 07/13/24 09:34 BP 126/87 07/13/24 08:33 Pulse Ox 95 07/13/24 08:33 FiO2 75 07/13/24 08:32 Intake & Output 07/12/24 07/13/24 07/13/24 18:59 06:59 18:59 Intake Total 360 Output Total 300 900 Balance 60 -900 Weight 80.5 kg Intake: Oral 360 Output: Urine 300 900 Other: Voiding Method External Catheter External Catheter External Catheter # Voids 1 # Bowel Movements 1 - Exam GENERAL EXAM: Alert, 74-year-old well-nourished male, on Airvo at 60 L with an FiO2 of 70 % HEAD: Normocephalic and atraumatic EYES: Normal reaction of pupils, equal size. NOSE: Clear with pink turbinates. THROAT: No erythema or exudates. No white plaques or thrush. NECK: No masses, no JVD. CHEST: No chest wall deformity. Previous thoracotomy scar well-approximated LUNGS: Equal air entry with posterior lower right lung with inspiratory crackles, left lower lung diminished to auscultation, anterior expiratory wheezes noted bilaterally. On 10 L high flow nasal cannula, no accessory muscle use or conversational dyspnea or noted respiratory distress.. CVS: S1 and S2 normal with no audible murmur, regular rhythm. No extra heart sounds ABDOMEN: No hepatosplenomegaly, active bowel sounds, no guarding or rigidity. SPINE: No scoliosis or deformity SKIN: No rashes CENTRAL NERVOUS SYSTEM: No focal deficits, tone is normal in all 4 extremities. EXTREMITIES: There is no peripheral edema, clubbing, or cyanosis. Peripheral pulses are intact. - Labs CBC & Chem 7: 07/13/24 10:15 07/13/24 08:02 Labs: Abnormal Lab Results - Last 24 Hours (Table) 07/12/24 07/12/24 07/12/24 Range/Units 11:16 16:18 20:07 Sodium (137-145) mmol/L Chloride (98-107) mmol/L Carbon Dioxide (22-30) mmol/L BUN (9-20) mg/dL Creatinine (0.66-1.25) mg/dL Glucose (74-99) mg/dL POC Glucose (mg/dL) 174 H 318 H 255 H (70-110) mg/dL ALT (4-49) U/L Total Protein (6.3-8.2) g/dL Albumin (3.5-5.0) g/dL 07/13/24 Range/Units 08:02 Sodium 131 L (137-145) mmol/L Chloride 86 L (98-107) mmol/L Carbon Dioxide 40 H (22-30) mmol/L BUN 29 H (9-20) mg/dL Creatinine 0.51 L (0.66-1.25) mg/dL Glucose 109 H (74-99) mg/dL POC Glucose (mg/dL) (70-110) mg/dL ALT 67 H (4-49) U/L Total Protein 5.7 L (6.3-8.2) g/dL Albumin 3.2 L (3.5-5.0) g/dL Assessment and Plan Assessment: Acute hypoxemic respiratory failure. CT scan of the chest performed 06/10/2024 revealed groundglass opacities and infiltrate with consolidation in the left upper lobe and right perihilar region. Procalcitonin level previously low. Repeat chest x-ray done on this readmission showing similar diffuse bilateral lung infiltrates/opacities with possible slight improvement in the left upper lung. Repeat CAT scan of the chest on 06/18/2024 shows worsening in groundglass pulmonary filtrates specially on the right. Left sided findings are essentially unchanged. Follow-up CAT scan of the chest from 06/28/2024 shows essentially stable findings would extensive groundglass pulmonary opacities more so on the right. Suspect acute lung injury most likely secondary to radiation therapy to the chest. Infections are felt to be less likely. Progression of lung cancer is felt to be less likely and the patient remains on Airvo 60 L with an FiO2 of 70 %. Repeat CAT scan of the chest was obtained on 07/12/2024 and compared to the earlier CAT scan of the chest. To my surprise, there is an obvious im provement in the groundglass pulmonary filtrates involving the right lung and improvement in the consolidative changes in the left lung base. Unfortunately, despite this radiographic improvement, the oxygenation remains impaired and the patient remains on Airvo COPD Acute on top of chronic dyspnea, secondary to above, Pulmonary adenocarcinoma and the patient is status post left upper lobectomy on 11/14/2023 with a complicated postoperative course. Postop staging was 3B with T2 N2 disease. The next generation genetic sequencing showed no evidence of any targetable mutations. Based on that, the patient received a total of 4 cycles of systemic chemotherapy using carboplatinum and Alimta which she completed on 03/31/2024. He also received adjuvant radiation therapy that he completed on 06/23/2023. Staging CAT scan of the chest and abdomen done on 04/24/2024 showed no evidence of any metastatic disease and that showed essentially postsurgical changes. Based on those findings, it was decided to continue ongoing treatment with durvalumab for a total of 1 year. The patient has not received immunotherapy. History of vocal cord paralysis Dysphagia currently on chopped and nectar thick material. A full swallow evaluation is to follow. Anemia, hemoglobin stable Hypertension Obstructive sleep apnea, uses nasal CPAP at home Former smoker History of anxiety Plan: Clinically Stable CAT scan of the chest on 07/12/2024 shows improvement in groundglass pulmonary filtrates on the right and improvement in the consolidation of the left. Keep the patient on Airvo 60 L with an FiO2 of 70 %. Gradual wean down FiO2 as tolerated. Recommend dropping the FiO2 down to 60%. Will monitor the oxygenation and continue our efforts to wean down the FiO2. Continue diuretics Maintain negative fluid balance Continue supplemental oxygen maintain oxygen saturation of 92% or greater Clinically stable without any interval worsening shortness of breath or oxygenation Continue 60 mg of prednisone daily basis Continue bronchodilators Procalcitonin level is nonelevated Check viral screen was negative We will continue monitoring his condition closely. Poor prognosis based on above-mentioned comorbidities. very slow process as the patient continues to be hypoxic post acute lung injury, likely radiation-induced
[2024-07-13 16:36] LABS: Glucose,Whole Blood 244 mg/dL (70-110)
[2024-07-13 20:18] LABS: Glucose,Whole Blood 201 mg/dL (70-110)
[2024-07-14 05:10] LABS: Anisocytosis Slight; HCT 31.6 % (39.0-53.0); HGB 10.8 gm/dL (13.0-17.5); MCH 30.7 pg (25.0-35.0); MCHC 34.2 g/dL (31.0-37.0); MCV 89.7 fL (80.0-100.0); Poikilocytosis Slight; RBC 3.53 m/uL (4.30-5.90); RDW 18.9 % (11.5-15.5); WBC 3.9 k/uL (3.8-10.6)
[2024-07-14 05:11] LABS: Platelet Count 47 k/uL (150-450)
[2024-07-14 05:29] LABS: Band Neutrophils % 15 %; Lymphocytes # (M) 0.66 k/uL (1.0-4.8); Monocytes # (M) 0.08 k/uL (0-1.0); Neutrophils % (M) 61 %; Nucleated Red Blood Cells 0 /100 WBC (0-0); Total Cells Counted 200
[2024-07-14 05:51] LABS: ALT 59 U/L (4-49); African American GFR (CKD) >90 (>60 ml/min/1.73 sqM); Albumin 2.8 g/dL (3.5-5.0); Anion Gap 7 mmol/L; Blood Urea Nitrogen 26 mg/dL (9-20); Calcium 8.7 mg/dL (8.4-10.2); Carbon Dioxide 34 mmol/L (22-30); Chloride 87 mmol/L (98-107); Glucose 121 mg/dL (74-99); Non-African American GFR(CKD) >90 (>60 ml/min/1.73 sqM); Sodium 128 mmol/L (137-145)
[2024-07-14 06:08] LABS: Magnesium 1.9 mg/dL (1.6-2.3); Potassium 4.2 mmol/L (3.5-5.1)
[2024-07-14 06:09] LABS: AST 35 U/L (17-59); Alkaline Phosphatase 82 U/L (38-126)
[2024-07-14 06:16] LABS: Glucose,Whole Blood 114 mg/dL (70-110)
[2024-07-14 11:28] LABS: Glucose,Whole Blood 190 mg/dL (70-110)
[2024-07-14] MEDS: KETOROLAC 15 MG/ML 1 ML VIAL IVP STA (12:23)
[2024-07-14] MEDS ORDERED: ZINC OXIDE PASTE (Z-GUARD) 1 APPLIC TOPICAL PRN (13:42)
--- NOTE | 2024-07-14 15:41 | P.PN ---
Subjective Progress Note Date: 07/14/24 Principal diagnosis: Acute hypoxic respiratory failure, multifactorial Patient is a 74-year-old male with past medical history significant for stage III pulmonary adenocarcinoma. He is status post left upper lobectomy with mediastinal lymph node dissection done back in November,. Subsequently, started on chemotherapy and radiation therapy. His oncologist is Dr. Zamora. L ast dose of chemotherapy was April,. He follows with Dr. Lancaster for radiation treatments. Last radiation treatment was May 24, 2024. Of note, patient recently admitted and discharged June 12. 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 Procalcitonin level was low. He was discharged on home oxygen and oral steroids. Patient states that his breathing never really returned to baseline. He is severely short of breath with minimal exertion such as getting up to the bathroom. His is at bedside, states his oxygen drops as low as 50%. She brought him to the emergency department for evaluation yesterday evening. He is currently being evaluated in ER, room 11. He is on 10 L high flow nasal cannula. He is awake and alert and no signs of CO2 narcosis. Nondistressed. Nontachypneic. No accessory muscle use. He states he has a persistent cough that is congested with minimal to no sputum production. Denies any fevers, chills, chest pain, hemoptysis. Denies any sick contacts. He has been generally weak, and lost an additional 10 pounds over the last month or so. Appetite has been poor. Most recent chest CT done on his recent admission showing diffuse bilateral groundglass opacities, and postsurgical changes in the left lung. No enlarging mediastinal or hilar adenopathy. Chest x-ray that was done last night on his readmission to the hospital continues to show bilateral lung infiltrates greater on the left, left upper portion may be slightly improved. CBC is unremarkable for leukocytosis. Hemoglobin stable at 9.4 g/dL. Platelets 158. Previous procalcitonin level 0.34 and repeat is pending. CMP: Sodium 134, potassium 4.9, chloride 98, serum bicarb 27, BUN 31, creatinine 0.5, glucose 171. Lactic 2.1. Is unremarkable. Troponin 0.012. NT proBNP not significantly elevated, 646. Current vitals: Temperature 98.5 F, heart rate 74 bpm, blood pressure 98/67 mmHg, nontachypneic, SpO2 is 94% on 10 L high flow nasal cannula. On 06/19/2024, the patient is being seen for a follow-up. The patient remains hypoxic and the patient was placed on Airvo 60 L with an FiO2 of 65%. A follow- up CAT scan of the chest was obtained on 06/18/2024 and there is no evidence of any pulmonary embolism. Of significance is development of bilateral multifocal groundglass pulmonary opacities with organizing changes in the left lung. The groundglass opacities slightly were more prominent compared to the earlier CAT scan especially on the right. Left lung findings are essentially stable. There is also mild to moderate central left-sided bronchiectatic changes. The patient remains afebrile. White cell count is 8.7. Hemoglobin is 8.6. Sodium is at 140 with a potassium level of 5.3. Bicarb level is 32. Lactic acid level is at 1.9. Procalcitonin level was at 0.44. He is able to communicate. His breathing is labored and he desaturates with minimal work of activity. The patient remains on IV Solu-Medrol 60 mg every 6 hours. He was placed also empirically on a combination of Rocephin and Zithromax. 07/12/2024, the patient is being seen for a follow-up. This morning, the patient remains on 60 L of Airvo with an FiO2 of 70%. Denies having any new complaints. Voice remains hoarse. Receiving daily Lasix doses and a fluid balance is negative. Remains on IV Solu-Medrol. Afebrile. Hemodynamically stable. No new labs are available from today. Labs from yesterday were all stable. Recommended follow-up CAT scan of the chest to assess progression of the disease and the patient had a follow-up CAT scan that showed decrease in the interstitial and consolidative pulmonary opacities compared to the prior CAT scan. There is a trace left-sided pleural effusion and the patient has postsurgical changes on the left. Will recommend gradual titration of the FiO2. He remains profoundly weak On 07/13/2024, the patient remains on Airvo with 60 L with an FiO2 of 70%. Respiratory status is unchanged. Unable to wean down FiO2 any further. Still encountering oxygen desaturation. Repeat CAT scan of the chest was done yesterday and the results were favorable. In comparison, there is decrease in the interstitial densities in the right lung and improving the consolidation left lung base. There is a trace left-sided pleural effusion. As such, there is obvious improvement in the CAT scan findings. The white cell count is at 5.12 with a hemoglobin of 10.9 and a platelet count of 48. BUN is 29 and a creatinine of 0.5. Sodium levels at 131. Potassium level is at 4.1. He still on a clear liquid diet. The complete swallow evaluation is to be done tomorrow. The patient himself is feeling weak and is progressively getting more debilitated. Nevertheless, there is no interval worsening in respiratory status. Oxygenation remains impaired as the patient continues to have episode of desaturation with minimal activity. Patient was seen today on 07/14/2024, remains on 75% FiO2 at 60 L flow/Airvo, overall the patient is about the same. I reviewed the CT of the chest, there is minimal improvement if any noted in the CT of the chest, clinically the patient is about the same, his O2 saturation keep fluctuating up and down but still requiring relatively high FiO2 and high flow. Patient is on Airvo and he is also on a nonrebreather mask. WBC count today is 3.9 hemoglobin 10.8 electrolytes are normal except for sodium of 128 bicarb is 34 renal profile is normal patient remains on multiple meds including Lovenox, amlodipine, Flonase nasal spray, insulin Levemir and sliding scale, DuoNeb, Toradol, lorazepam, l osartan with hydrochlorothiazide, melatonin, metoprolol, pantoprazole, prednisone 60 mg daily, and Zoloft. Patient is also on Flomax Objective - Vital Signs Vital signs: Vital Signs Temp 97.5 F L 07/14/24 15:22 Pulse 104 H 07/14/24 15:22 Resp 20 07/14/24 15:22 BP 121/84 07/14/24 15:22 Pulse Ox 98 07/14/24 15:22 FiO2 75 07/14/24 11:44 Intake & Output 07/13/24 07/14/24 07/14/24 18:59 06:59 18:59 Intake Total 118 Output Total 900 900 700 Balance -841 -900 -700 Weight 80.5 kg Intake: Oral 118 Output: Urine 900 900 700 Other: Voiding Method External Catheter External Catheter External Catheter # Bowel Movements 1 - Exam GENERAL EXAM: revealed 74-year-old white male, dyspneic on Airvo 75% and 60 L flow HEAD: Normocephalic and atraumatic EYES: Normal reaction of pupils, equal size. NOSE: Clear with pink turbinates. THROAT: No erythema or exudates. No white plaques or thrush. NECK: No masses, no JVD. CHEST: No chest wall deformity. Previous thoracotomy scar well-approximated LUNGS: Diminished breath sounds at the bases with crackles CVS: S1 and S2 normal with no audible murmur, regular rhythm. No extra heart sounds ABDOMEN: No hepatosplenomegaly, active bowel sounds, no guarding or rigidity. SKIN: No rashes CENTRAL NERVOUS SYSTEM: No focal deficits, tone is normal in all 4 extremities. EXTREMITIES: There is no peripheral edema, clubbing, or cyanosis. Peripheral pulses are intact. - Labs CBC & Chem 7: 07/14/24 04:13 07/14/24 04:13 Labs: Abnormal Lab Results - Last 24 Hours (Table) 07/13/24 07/13/24 07/14/24 Range/Units 16:34 20:14 04:13 RBC 3.53 L (4.30-5.90) m/uL Hgb 10.8 L (13.0-17.5) gm/dL Hct 31.6 L (39.0-53.0) % RDW 18.9 H (11.5-15.5) % Plt Count 47 L (150-450) k/uL Lymphocytes # (Manual) 0.66 L (1.0-4.8) k/uL Sodium (137-145) mmol/L Chloride (98-107) mmol/L Carbon Dioxide (22-30) mmol/L BUN (9-20) mg/dL Creatinine (0.66-1.25) mg/dL Glucose (74-99) mg/dL POC Glucose (mg/dL) 244 H 201 H (70-110) mg/dL ALT (4-49) U/L Total Protein (6.3-8.2) g/dL Albumin (3.5-5.0) g/dL 07/14/24 07/14/24 07/14/24 Range/Units 04:13 06:14 11:26 RBC (4.30-5.90) m/uL Hgb (13.0-17.5) gm/dL Hct (39.0-53.0) % RDW (11.5-15.5) % Plt Count (150-450) k/uL Lymphocytes # (Manual) (1.0-4.8) k/uL Sodium 128 L (137-145) mmol/L Chloride 87 L (98-107) mmol/L Carbon Dioxide 34 H (22-30) mmol/L BUN 26 H (9-20) mg/dL Creatinine 0.38 L (0.66-1.25) mg/dL Glucose 121 H (74-99) mg/dL POC Glucose (mg/dL) 114 H 190 H (70-110) mg/dL ALT 59 H (4-49) U/L Total Protein 5.0 L (6.3-8.2) g/dL Albumin 2.8 L (3.5-5.0) g/dL Assessment and Plan Assessment: Pression: Acute hypoxic respiratory failure, multifactorial, CT of the chest is quite concerning with significant worsening of his interstitial pneumonitis, possible radiation pneumonitis Acute exacerbation of COPD, on bronchodilators Pulmonary adenocarcinoma with previous left upper lobectomy on 11/14/2023 with complicated postoperative course with postoperative staging of T2 N2 disease, genetic sequencing showed no evidence of any targetable mutation patient is status post chemotherapy completed on 03/31, patient was supposed to go on durvalumab for a total of 1 year, however according to the patient and this was never given. So very unlikely that his pneumonitis is related to this. Considering his history of adenocarcinoma, and considering his profound hypoxemia with abnormal CT of the chest, lymphangitic carcinomatosis should be in the picture/differential diagnosis. Again patient is not a great candidate for bronchoscopy at this point with his overall pulmonary status. But that is to be considered if the patient ends up requiring intubation mechanical ventilation. Vocal cord paralysis Dysphagia secondary to above, patient had swallow evaluation Chronic anemia Benign essential hypertension Obstructive sleep apnea Former smoker Recommendation: Continue present supportive care measures, continue supplemental oxygen and titrate accordingly Continue bronchodilators, diuretics and steroids Continue prednisone 60 mg daily Continue Airvo and titrate accordingly prognosis remains extremely poor and guarded Will continue to follow Time with Patient: Less than 30
--- NOTE | 2024-07-14 16:20 | P.PN ---
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 Pt was discharged home on home oxygen and oral steroids but returned to the emergency department on 06/17/2024 secondary to worsening shortness of breath. CT scan of the chest performed 06/10/2024 revealed groundglass opacities and infiltrate with consolidation in the left upper lobe and right perihilar region. Procalcitonin level previously low. Repeat chest x-ray done on this readmission showing similar diffuse bilateral lung infiltrates/opacities with possible slight improvement in the left upper lung. Repeat CAT scan of the chest on 06/18/2024 shows worsening in groundglass pulmonary filtrates specially on the right. Left sided findings are essentially unchanged. Follow-up CAT scan of the chest from 06/28/2024 shows essentially stable findings would extensive groundglass pulmonary opacities more so on the right. Suspect acute lung injury most likely secondary to radiation therapy to the chest. Infections are felt to be less likely. Viral panel negative. Procalcitonin negative at 0.44. Progression of lung cancer is also felt to be less likely and the patient remains on Airvo 60 L with an FiO2 of 75 %. Patient's CODE STATUS was changed to DNR DNI, and hospice was consulted and evaluated. Pt and family met with hospice and declining their services at this time. Pulmonology following, stating patient is not a candidate for BAL and recommending keeping patient on Airvo and gradually wean down as tolerated.. Oncology following, reporting pt is status post surgery and completed adjuvant chemo (carbo/alimta), completed radiation on 04/23/24 and maintenance immunotherapy x1 year has been pending start as pt has never received a dose of immunotherapy. Repeat chest x-ray completed 07/09/2024 showing patchy complete airspace disease throughout the left lung relatively unchanged and airspace disease throughout the right lung showing some improvement. Physical Exam: Patient seen and fully evaluated at bedside this morning. Patient remains on Airvo 60L with FiO2 of 75% and nonrebreather satting at 92%. Per RN and at bedside patient desaturated down quickly this morning when moving to change. Patient continues to desaturate with minimal exertion. He reports feeling weak and short of breath. Patient states he is tired today. Vital signs reviewed and stable. General: Nontoxic, no distress and appears stated age. Derm: Skin warm and dry, normal coloration for ethnicity. Head: Atraumatic, normocephalic and symmetric. Eyes: EOM's intact, no lid lag, and anicteric sclera Mouth: no lip lesions, mucus membranes moist Cardiovascular: regular rate and rhythm with normal S1S2, no murmur, positive posterior tibial pulses bilaterally, and cap refill < 2 seconds. Lungs: Respirations with slightly increased work of breathing and conversational dyspnea. Patient remains on Airvo plus nonrebreather this morning.. Lungs diminished at bases with soft expiratory wheezes bilaterally. Voice is hoarse. Abdominal: soft, nontender to palpation, no guarding, no appreciable organomegaly Ext: ROM intact. No gross muscle atrophy, scant lower extremity edema, no contractures Neuro: Speech clear, face symmetrical and CN II-XII grossly intact with no noted focal neuro deficits Psych: Alert and oriented to person, place, time, and situation. Appropriate and pleasant affect. Assessment and Plan of Care: Acute hypoxic and hypercarbic respiratory failure. -Patient continues to require high flow oxygen via AirVo, this is likely in relation to radiation pneumonitis versus possible lymphgenic carcinomatosis. Infection appears to be less likely at this time. -Continue supplemental oxygen currently on heated high flow Airvo to maintain SpO2 greater than 90% and wean as patient tolerates. -Pulmonology following, reviewed documentation in chart -Continue Prednisone 60 mg daily and DuoNebs scheduled 4 times daily. -He is currently on 75% FiO2 which can likely be weaned down later today. -Telemetry monitoring. Hx of non small cell lung cancer s/p surgery, radiation and chemotherpay -Non-small cell pulmonary adenocarcinoma and the patient is status post left upper lobectomy on 11/14/2023 with a complicated postoperative course. Postop staging was 3B with T2 N2 disease. The next generation genetic sequencing showed no evidence of any targetable mutations. Based on that, the patient received a total of 4 cycles of systemic chemotherapy using carboplatinum and Alimta which he completed on 03/31/2024. He also received adjuvant radiation therapy that he completed on 04/23/2024. Staging CAT scan of the chest and abdomen done on 04/24/2024 showed no evidence of any metastatic disease and essentially only revealed postsurgical changes. Based on those findings, it was decided to continue ongoing treatment with durvalumab for a total of 1 year. The patient has not received immunotherapy. Diabetes mellitus with hyperglycemia. Blood glucose levels elevated ranging from 90-244 over the past 24 hours. Continue glycemic protocol with NovoLog sliding scale and Levemir 20 units daily. Anemia of chronic disease. Stable and at baseline. Hemoglobin 10.8 this morning. Will continue to monitor. Thrombocytopenia. Slightly worsening with platelet count of 47. Possibly reactive. Will continue to monitor with repeat a.m. labs. Hypertension. Monitor vital signs and continue daily medication regimen with amlodipine 10 mg dialy and losartan/hctz 50-12.5 mg 2 tablets twice daily. Vocal cord paralysis. Maintain aspiration precautions. Continue dysphagia level 3 chopped diet with nectar thickened liquids. GERD. Continue pepcid 20 mg daily BPH. Continue tamsulosin 0.4 mg daily. Depression/anixety. Continue sertraline 50 mg nightly and trazodone 50 mg nightly. Patient started on Ativan 0.5 mg every 8 hours for mild to moderate anxiety or 1 mg every 8 hours for severe anxiety. Hyponatermia. Resolved Hyperkalemia. Resolved. Patient with a very guarded and poor prognosis. Data and imaging reviewed: -Vital signs reviewed. Blood pressure 139/86, heart rate 82, respiratory rate 20, temp 97.6 F, and SpO2 of 97% on 60 L with FiO2 of 74%. -Morning labs reviewed. CBC showing bicytopenia with hemoglobin of 10.8 and platelet count of 47. BMP showing hypochloremic hyponatremia with sodium of 128, chloride of 87, and elevated bicarb of 34. Blood glucose 121. Magnesium 1.9. Liver profile showing elevated ALT of 59 otherwise normal findings. Albumin low at 2.8. CODE STATUS DNR/DNI DVT prophylaxis: Lovenox Anticipated discharge date: Pending clinical course Anticipated discharge place: Pending clinical course Patient was seen independently by Nurse Pracitioner. This document was prepared using [employer] dictation software. Please allow for errors in offset pressman, while rare they do occur. Frankie Aviles NP rendered care for this patient independently, reviewed the findings and plan as documented in the note above and agree with plan. I did not physically speak with or examine the patient on this date. Objective - Vital Signs Vital signs: Vital Signs Temp 97.8 F 07/14/24 04:00 Pulse 81 07/14/24 04:00 Resp 20 07/14/24 04:00 BP 116/74 07/14/24 04:00 Pulse Ox 84 L 07/14/24 08:03 FiO2 65 07/14/24 08:03 Intake & Output 07/13/24 07/14/24 07/14/24 18:59 06:59 18:59 Intake Total 118 Output Total 900 900 Balance -782 -900 Weight 80.5 kg Intake: Oral 118 Output: Urine 900 900 Other: Voiding Method External Catheter External Catheter - Labs CBC & Chem 7: 07/14/24 04:13 07/14/24 04:13 Labs: Abnormal Lab Results - Last 24 Hours (Table) 07/13/24 07/13/24 07/13/24 Range/Units 08:02 10:15 11:25 RBC 3.48 L (4.30-5.90) m/uL Hgb 10.9 L (13.0-17.5) gm/dL Hct 31.2 L (39.0-53.0) % RDW 18.7 H (11.5-15.5) % Plt Count 48 L (150-450) k/uL Lymphocytes # (Manual) 0.66 L (1.0-4.8) k/uL Metamyelocytes # (Man) 0.06 H (0) k/uL Sodium 131 L (137-145) mmol/L Chloride 86 L (98-107) mmol/L Carbon Dioxide 40 H (22-30) mmol/L BUN 29 H (9-20) mg/dL Creatinine 0.51 L (0.66-1.25) mg/dL Glucose 109 H (74-99) mg/dL POC Glucose (mg/dL) 171 H (70-110) mg/dL ALT 67 H (4-49) U/L Total Protein 5.7 L (6.3-8.2) g/dL Albumin 3.2 L (3.5-5.0) g/dL 07/13/24 07/13/24 07/14/24 Range/Units 16:34 20:14 04:13 RBC 3.53 L (4.30-5.90) m/uL Hgb 10.8 L (13.0-17.5) gm/dL Hct 31.6 L (39.0-53.0) % RDW 18.9 H (11.5-15.5) % Plt Count 47 L (150-450) k/uL Lymphocytes # (Manual) 0.66 L (1.0-4.8) k/uL Metamyelocytes # (Man) (0) k/uL Sodium (137-145) mmol/L Chloride (98-107) mmol/L Carbon Dioxide (22-30) mmol/L BUN (9-20) mg/dL Creatinine (0.66-1.25) mg/dL Glucose (74-99) mg/dL POC Glucose (mg/dL) 244 H 201 H (70-110) mg/dL ALT (4-49) U/L Total Protein (6.3-8.2) g/dL Albumin (3.5-5.0) g/dL 07/14/24 07/14/24 Range/Units 04:13 06:14 RBC (4.30-5.90) m/uL Hgb (13.0-17.5) gm/dL Hct (39.0-53.0) % RDW (11.5-15.5) % Plt Count (150-450) k/uL Lymphocytes # (Manual) (1.0-4.8) k/uL Metamyelocytes # (Man) (0) k/uL Sodium 128 L (137-145) mmol/L Chloride 87 L (98-107) mmol/L Carbon Dioxide 34 H (22-30) mmol/L BUN 26 H (9-20) mg/dL Creatinine 0.38 L (0.66-1.25) mg/dL Glucose 121 H (74-99) mg/dL POC Glucose (mg/dL) 114 H (70-110) mg/dL ALT 59 H (4-49) U/L Total Protein 5.0 L (6.3-8.2) g/dL Albumin 2.8 L (3.5-5.0) g/dL
[2024-07-14 16:35] LABS: Glucose,Whole Blood 223 mg/dL (70-110)
[2024-07-14 20:13] LABS: Glucose,Whole Blood 303 mg/dL (70-110)
[2024-07-15 05:58] LABS: Glucose,Whole Blood 120 mg/dL (70-110)
[2024-07-15 08:16] LABS: ALT 50 U/L (4-49); African American GFR (CKD) >90 (>60 ml/min/1.73 sqM); Albumin 2.6 g/dL (3.5-5.0); Anion Gap 4 mmol/L; Blood Urea Nitrogen 24 mg/dL (9-20); Calcium 8.5 mg/dL (8.4-10.2); Carbon Dioxide 34 mmol/L (22-30); Chloride 90 mmol/L (98-107); Glucose 102 mg/dL (74-99); Magnesium 1.7 mg/dL (1.6-2.3); Non-African American GFR(CKD) >90 (>60 ml/min/1.73 sqM); Sodium 128 mmol/L (137-145); Total Bilirubin 1.2 mg/dL (0.2-1.3); Total Protein 4.8 g/dL (6.3-8.2)
[2024-07-15 08:32] LABS: Potassium 4.1 mmol/L (3.5-5.1)
[2024-07-15 08:33] LABS: AST 27 U/L (17-59)
[2024-07-15 08:34] LABS: Alkaline Phosphatase 70 U/L (38-126)
[2024-07-15 08:46] LABS: Anisocytosis Slight; HCT 30.9 % (39.0-53.0); HGB 10.7 gm/dL (13.0-17.5); MCH 31.5 pg (25.0-35.0); MCHC 34.8 g/dL (31.0-37.0); MCV 90.6 fL (80.0-100.0); Mean Platelet Volume 6.4; Poikilocytosis Slight; RBC 3.41 m/uL (4.30-5.90); RDW 19.1 % (11.5-15.5); WBC 4.1 k/uL (3.8-10.6)
[2024-07-15 08:54] LABS: Platelet Count 42 k/uL (150-450)
[2024-07-15 11:39] LABS: Glucose,Whole Blood 241 mg/dL (70-110)
[2024-07-15 11:50] VITALS: BP 108/73; RESP 20; TEMP 98.5
[2024-07-15 12:14] VITALS: PULSE 92
--- NOTE | 2024-07-15 13:12 | P.PN ---
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 Pt was discharged home on home oxygen and oral steroids but returned to the emergency department on 06/17/2024 secondary to worsening shortness of breath. CT scan of the chest performed 06/10/2024 revealed groundglass opacities and infiltrate with consolidation in the left upper lobe and right perihilar region. Procalcitonin level previously low. Repeat chest x-ray done on this readmission showing similar diffuse bilateral lung infiltrates/opacities with possible slight improvement in the left upper lung. Repeat CAT scan of the chest on 06/18/2024 shows worsening in groundglass pulmonary filtrates specially on the right. Left sided findings are essentially unchanged. Follow-up CAT scan of the chest from 06/28/2024 shows essentially stable findings would extensive groundglass pulmonary opacities more so on the right. Suspect acute lung injury most likely secondary to radiation therapy to the chest. Infections are felt to be less likely. Viral panel negative. Procalcitonin negative at 0.44. Progression of lung cancer is also felt to be less likely and the patient remains on Airvo 60 L with an FiO2 of 75 %. Patient's CODE STATUS was changed to DNR DNI, and hospice was consulted and evaluated. Pt and family met with hospice and declining their services at this time. Pulmonology following, stating patient is not a candidate for BAL and recommending keeping patient on Airvo and gradually wean down as tolerated.. Oncology following, reporting pt is status post surgery and completed adjuvant chemo (carbo/alimta), completed radiation on 04/23/24 and maintenance immunotherapy x1 year has been pending start as pt has never received a dose of immunotherapy. Repeat chest x-ray completed 07/09/2024 showing patchy complete airspace disease throughout the left lung relatively unchanged and airspace disease throughout the right lung showing some improvement. Physical Exam: Patient seen and fully evaluated at bedside this morning. Patient remains on Airvo 60L with FiO2 of 74% and nonrebreather satting at 94%. RN and at bedside reports pt again had issue with aspiration and when taking a drink this morning and his morning medications he aspirated and was seen by speech and language pathologist whom made pt strict NPO. Pt and his at bedside along with visiting family and friends. Discussed options with pt and family including NG tube placement for nourishment and medication administration. Pt and family made the decision to meet with hospice at this time. Hospice notified and coming to talk with pt and family at this time. Vital signs reviewed and stable. General: Nontoxic, no distress and appears stated age. Derm: Skin warm and dry, normal coloration for ethnicity. Head: Atraumatic, normocephalic and symmetric. Eyes: EOM's intact, no lid lag, and anicteric sclera Mouth: no lip lesions, mucus membranes moist Cardiovascular: regular rate and rhythm with normal S1S2, no murmur, positive posterior tibial pulses bilaterally, and cap refill < 2 seconds. Lungs: Respirations with slightly increased work of breathing and conversational dyspnea. Patient remains on Airvo plus nonrebreather this morning.. Lungs diminished at bases with soft expiratory wheezes bilaterally. Voice is hoarse. Abdominal: soft, nontender to palpation, no guarding, no appreciable organomegaly Ext: ROM intact. No gross muscle atrophy, scant lower extremity edema, no contractures Neuro: Speech clear, face symmetrical and CN II-XII grossly intact with no noted focal neuro deficits Psych: Alert and oriented to person, place, time, and situation. Appropriate and pleasant affect. Assessment and Plan of Care: Acute hypoxic and hypercarbic respiratory failure. -Patient continues to require high flow oxygen via AirVo, this is likely in relation to radiation pneumonitis versus possible lymphgenic carcinomatosis. Infection appears to be less likely at this time. -Continue supplemental oxygen currently on heated high flow Airvo to maintain SpO2 greater than 90% and wean as patient tolerates. -Pulmonology following, reviewed documentation in chart -Continue Prednisone 60 mg daily and DuoNebs scheduled 4 times daily. -He is currently on 75% FiO2 which can likely be weaned down later today. -Telemetry monitoring. Hx of non small cell lung cancer s/p surgery, radiation and chemotherpay -Non-small cell pulmonary adenocarcinoma and the patient is status post left upper lobectomy on 11/14/2023 with a complicated postoperative course. Postop staging was 3B with T2 N2 disease. The next generation genetic sequencing showed no evidence of any targetable mutations. Based on that, the patient received a total of 4 cycles of systemic chemotherapy using carboplatinum and Alimta which he completed on 03/31/2024. He also received adjuvant radiation therapy that he completed on 04/23/2024. Staging CAT scan of the chest and abdomen done on 04/24/2024 showed no evidence of any metastatic disease and essentially only revealed postsurgical changes. Based on those findings, it was decided to continue ongoing treatment with durvalumab for a total of 1 year. The patient has not received immunotherapy. Diabetes mellitus with hyperglycemia. Blood glucose levels elevated ranging from 90-244 over the past 24 hours. Continue glycemic protocol with NovoLog sliding scale and Levemir 20 units daily. Anemia of chronic disease. Stable and at baseline. Hemoglobin 10.8 this morning. Will continue to monitor. Thrombocytopenia. Slightly worsening with platelet count of 47. Possibly reactive. Will continue to monitor with repeat a.m. labs. Hypertension. Monitor vital signs and continue daily medication regimen with amlodipine 10 mg dialy and losartan/hctz 50-12.5 mg 2 tablets twice daily. Vocal cord paralysis. Maintain aspiration precautions. Continue dysphagia level 3 chopped diet with nectar thickened liquids. GERD. Continue pepcid 20 mg daily BPH. Continue tamsulosin 0.4 mg daily. Depression/anixety. Continue sertraline 50 mg nightly and trazodone 50 mg nightly. Patient started on Ativan 0.5 mg every 8 hours for mild to moderate anxiety or 1 mg every 8 hours for severe anxiety. Hyponatermia. Resolved Hyperkalemia. Resolved. Patient with a very guarded and poor prognosis. Data and imaging reviewed: -Vital signs reviewed. Blood pressure 109/75, heart rate 97, respiratory rate 23, temp 97.5 F axillary, and SpO2 of 83% on 60 L with FiO2 of 75%, nonrebreather mask at 15 L was placed in addition to Airvo increasing SpO2 to 92%. -Morning labs reviewed. CBC showing bicytopenia with hemoglobin of 10.7 and platelet count of 42. BMP showing hypochloremic hyponatremia with sodium of 128, chloride of 90, and elevated bicarb of 34. Blood glucose 102. CODE STATUS DNR/DNI DVT prophylaxis: Lovenox Anticipated discharge date: Pending clinical course Anticipated discharge place: Pending clinical course Patient was seen independently by Nurse Pracitioner. This document was prepared using [employer] dictation software. Please allow for errors in locomotive boilermaker, while rare they do occur. Frankie Aviles NP rendered care for this patient independently, reviewed the findings and plan as documented in the note above and agree with plan. I did not physically speak with or examine the patient on this date. Objective - Vital Signs Vital signs: Vital Signs Temp 97.5 F L 07/15/24 04:00 Pulse 97 07/15/24 04:00 Resp 20 07/15/24 04:00 BP 119/82 07/15/24 04:00 Pulse Ox 95 07/15/24 04:00 FiO2 74 07/15/24 04:28 Intake & Output 07/14/24 07/15/24 07/15/24 18:59 06:59 18:59 Intake Total 240 Output Total 700 700 Balance -700 -460 Weight 80.5 kg Intake: Oral 240 Output: Urine 700 700 Other: Voiding Method External Catheter External Catheter # Bowel Movements 1 - Labs CBC & Chem 7: 07/15/24 08:30 07/15/24 06:11 Labs: Abnormal Lab Results - Last 24 Hours (Table) 07/14/24 07/14/24 07/14/24 Range/Units 11:26 16:31 20:09 POC Glucose (mg/dL) 190 H 223 H 303 H (70-110) mg/dL 07/15/24 Range/Units 05:55 POC Glucose (mg/dL) 120 H (70-110) mg/dL
--- NOTE | 2024-07-15 13:17 | P.DS ---
Providers Date of admission: 06/17/24 21:49 Expected date of discharge: 07/15/24 Attending physician: Tom Mayen MD Consults: 06/17/24 21:49 Consult Physician Routine Consulting Provider: Silke Zamora Consult Reason/Comments: known Do you want consulting provider notified?: Yes Consult Physician Routine Consulting Provider: Christopher Myers Consult Reason/Comments: hypoxai Do you want consulting provider notified?: Yes Primary care physician: Braydon Villarreal MD Hospital Course: Discharge Diagnosis: Acute hypoxic and hypercarbic respiratory failure. Patient underwent 28-day hospitalization and continues to require high flow oxygen via AirVo in addition to nonrebreather mask. Patient and family have decided to sign on with hospice on comfort measures only. Patient being discharged to inpatient hospice. 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 Postop staging was 3B with T2 N2 disease. The next generation genetic sequencing showed no evidence of any targetable mutations. Based on that, the patient received a total of 4 cycles of systemic chemotherapy using carboplatinum and Alimta which he completed on 03/31/2024. He also received adjuvant radiation therapy that he completed on 04/23/2024. Staging CAT scan of the chest and abdomen done on 04/24/2024 showed no evidence of any metastatic disease and essentially only revealed postsurgical changes. Based on those findings, it was decided to continue ongoing treatment with durvalumab for a total of 1 year. The patient has not received immunotherapy. Diabetes mellitus with hyperglycemia. Blood glucose levels elevated ranging f rom 90-244 over the past 24 hours. Continue glycemic protocol with NovoLog sliding scale and Levemir 20 units daily. Anemia of chronic disease. Stable and at baseline. Hemoglobin 10.8 this morning. Will continue to monitor. Thrombocytopenia. Slightly worsening with platelet count of 47. Possibly reactive. Will continue to monitor with repeat a.m. labs. Hypertension. Monitor vital signs and continue daily medication regimen with amlodipine 10 mg dialy and losartan/hctz 50-12.5 mg 2 tablets twice daily. Vocal cord paralysis. Maintain aspiration precautions. Continue dysphagia level 3 chopped diet with nectar thickened liquids. GERD. Continue pepcid 20 mg daily BPH. Continue tamsulosin 0.4 mg daily. Depression/anixety. Continue sertraline 50 mg nightly and trazodone 50 mg nightly. Patient started on Ativan 0.5 mg every 8 hours for mild to moderate anxiety or 1 mg every 8 hours for severe anxiety. Hyponatermia. Metabolic alkalosis Hyperkalemia. Resolved. 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 Pt was discharged home on home oxygen and oral steroids but returned to the emergency department on 06/17/2024 secondary to worsening shortness of breath. CT scan of the chest performed 06/10 revealed groundglass opacities and infiltrate with consolidation in the left upper lobe and right perihilar region. Procalcitonin level previously low. Repeat chest x-ray done on this readmission showing similar diffuse bilateral lung infiltrates/opacities with possible slight improvement in the left upper lung. Repeat CAT scan of the chest on 06/18/2024 shows worsening in groundglass pulmonary filtrates specially on the right. Left sided findings are essentially unchanged. Follow-up CAT scan of the chest from 06/28/2024 shows essentially stable findings would extensive groundglass pulmonary opacities more so on the right. Suspect acute lung injury most likely secondary to radiation therapy to the chest. Infections are felt to be less likely. Viral panel negative. Procalcitonin negative at 0.44. Progression of lung cancer is also felt to be less likely and the patient remains on Airvo 60 L with an FiO2 of 75 %. Patient's CODE STATUS was changed to DNR DNI, and hospice was consulted and evaluated. Pt and family met with hospice and declining their services at this time. Pulmonology following, stating patient is not a candidate for BAL and recommending keeping patient on Airvo and gradually wean down as tolerated.. Oncology following, reporting pt is status post surgery and completed adjuvant chemo (carbo/alimta), completed radiation on 04/23/24 and maintenance im munotherapy x1 year has been pending start as pt has never received a dose of immunotherapy. Repeat chest x-ray completed 07/09/2024 showing patchy complete airspace disease throughout the left lung relatively unchanged and airspace disease throughout the right lung showing some improvement.Patient underwent 28- day hospitalization and continues to require high flow oxygen via AirVo in addition to nonrebreather mask. Patient and family have decided to sign on with hospice on comfort measures only. Patient being discharged to inpatient hospice. A total of 33 minutes of time were spent preparing this complex discharge summary. Pt was discharged on 07/15/24 at 1:12 PM to inpatient hospice. Patient was seen independently by Nurse Practitioner. This document was prepared using [employer] dictation software. Please allow for errors in conveyor belt repairer while rare they do occur. Frankie Aviles NP rendered care for this patient independently, reviewed the findings and plan as documented in the note above. I did not physically speak with or examine the patient on this date. Patient Condition at Discharge: Serious Plan - Discharge Summary Discharge Rx Participant: No New Discharge Prescriptions: No Action Sertraline [Zoloft] 50 mg PO HS traZODone HCL [Desyrel] 50 mg PO HS PRN PRN Reason: Insomnia Albuterol Inhaler [Ventolin Hfa Inhaler] 1 puff INHALATION RT-Q6H PRN PRN Reason: Wheezing traMADol HCl [Ultram] 50 mg PO Q6H PRN PRN Reason: Pain amLODIPine [Norvasc] 10 mg PO DAILY Tamsulosin [Flomax] 0.4 mg PO DAILY Metoprolol Succinate (ER) [Toprol XL] 50 mg PO HS Losartan/Hydrochlorothiazide [Losartan-Hctz 100-25 mg Tab] 1 tab PO DAILY Dutasteride 0.5 mg PO DAILY ALPRAZolam [Xanax] 0.5 mg PO DAILY PRN PRN Reason: Anxiety OLANZapine [ZyPREXA] 2.5 mg PO DAILY PRN PRN Reason: Nausea Cetirizine HCl [Zyrtec] 10 mg PO DAILY traZODone HCL [Desyrel] 50 mg PO HS Ipratropium-Albuterol Nebulize [Duoneb 0.5 mg-3 mg/3 ml Soln] 3 ml INHALATION RT-QID PRN #120 each PRN Reason: Shortness Of Breath predniSONE See Taper PO DIRECTED #30 tab Pantoprazole [Protonix] 40 mg PO AC-BRKFST #30 tab Clotrimazole/Betameth Cream [Lotrisone] 10 mg TOPICAL DAILY PRN PRN Reason: HIVES Discharge Medication List ALPRAZolam [Xanax] 0.5 mg PO DAILY PRN 10/15/23 [History] Albuterol Inhaler [Ventolin Hfa Inhaler] 1 puff INHALATION RT-Q6H PRN 10/15/23 [History] Dutasteride 0.5 mg PO DAILY 10/15/23 [History] Losartan/Hydrochlorothiazide [Losartan-Hctz 100-25 mg Tab] 1 tab PO DAILY 10/15/23 [History] Metoprolol Succinate (ER) [Toprol XL] 50 mg PO HS 10/15/23 [History] Sertraline [Zoloft] 50 mg PO HS 10/15/23 [History] Tamsulosin [Flomax] 0.4 mg PO DAILY 10/15/23 [History] traZODone HCL [Desyrel] 50 mg PO HS PRN 10/15/23 [History] Cetirizine HCl [Zyrtec] 10 mg PO DAILY 06/07/24 [History] OLANZapine [ZyPREXA] 2.5 mg PO DAILY PRN 06/07/24 [History] amLODIPine [Norvasc] 10 mg PO DAILY 06/07/24 [History] traMADol HCl [Ultram] 50 mg PO Q6H PRN 06/07/24 [History] traZODone HCL [Desyrel] 50 mg PO HS 06/07/24 [History] Ipratropium-Albuterol Nebulize [Duoneb 0.5 mg-3 mg/3 ml Soln] 3 ml INHALATION RT-QID PRN #120 each 06/12/24 [Rx] Pantoprazole [Protonix] 40 mg PO AC-BRKFST #30 tab 06/12/24 [Rx] predniSONE See Taper PO DIRECTED #30 tab 06/12/24 [Rx] Clotrimazole/Betameth Cream [Lotrisone] 10 mg TOPICAL DAILY PRN 06/20/24 [History] Follow up Appointment(s)/Referral(s): Braydon Villarreal MD [Primary Care Provider] - 1-2 days Activity/Diet/Wound Care/Special Instructions: Dischaged to inpatient Hospice Discharge Disposition: OTHER INSTITUTION NOT DEFINED
--- NOTE | 2024-07-15 13:27 | P.PN ---
Subjective Progress Note Date: 07/15/24 Principal diagnosis: Acute hypoxic respiratory failure, multifactorial Patient is a 74-year-old male with past medical history significant for stage III pulmonary adenocarcinoma. He is status post left upper lobectomy with mediastinal lymph node dissection done back in November,. Subsequently, started on chemotherapy and radiation therapy. His oncologist is Dr. Zaomra. L ast dose of chemotherapy was April,. He follows with Dr. Lancaster for radiation treatments. Last radiation treatment was May 24, 2024. Of note, patient recently admitted and discharged June 12. 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 Procalcitonin level was low. He was discharged on home oxygen and oral steroids. Patient states that his breathing never really returned to baseline. He is severely short of breath with minimal exertion such as getting up to the bathroom. His is at bedside, states his oxygen drops as low as 50%. She brought him to the emergency department for evaluation yesterday evening. He is currently being evaluated in ER, room 11. He is on 10 L high flow nasal cannula. He is awake and alert and no signs of CO2 narcosis. Nondistressed. Nontachypneic. No accessory muscle use. He states he has a persistent cough that is congested with minimal to no sputum production. Denies any fevers, chills, chest pain, hemoptysis. Denies any sick contacts. He has been generally weak, and lost an additional 10 pounds over the last month or so. Appetite has been poor. Most recent chest CT done on his recent admission showing diffuse bilateral groundglass opacities, and postsurgical changes in the left lung. No enlarging mediastinal or hilar adenopathy. Chest x-ray that was done last night on his readmission to the hospital continues to show bilateral lung infiltrates greater on the left, left upper portion may be slightly improved. CBC is unremarkable for leukocytosis. Hemoglobin stable at 9.4 g/dL. Platelets 158. Previous procalcitonin level 0.34 and repeat is pending. CMP: Sodium 134, potassium 4.9, chloride 98, serum bicarb 27, BUN 31, creatinine 0.5, glucose 171. Lactic 2.1. Is unremarkable. Troponin 0.012. NT proBNP not significantly elevated, 646. Current vitals: Temperature 98.5 F, heart rate 74 bpm, blood pressure 98/67 mmHg, nontachypneic, SpO2 is 94% on 10 L high flow nasal cannula. On 06/19/2024, the patient is being seen for a follow-up. The patient remains hypoxic and the patient was placed on Airvo 60 L with an FiO2 of 65%. A follow- up CAT scan of the chest was obtained on 06/18/2024 and there is no evidence of any pulmonary embolism. Of significance is development of bilateral multifocal groundglass pulmonary opacities with organizing changes in the left lung. The groundglass opacities slightly were more prominent compared to the earlier CAT scan especially on the right. Left lung findings are essentially stable. There is also mild to moderate central left-sided bronchiectatic changes. The patient remains afebrile. White cell count is 8.7. Hemoglobin is 8.6. Sodium is at 140 with a potassium level of 5.3. Bicarb level is 32. Lactic acid level is at 1.9. Procalcitonin level was at 0.44. He is able to communicate. His breathing is labored and he desaturates with minimal work of activity. The patient remains on IV Solu-Medrol 60 mg every 6 hours. He was placed also empirically on a combination of Rocephin and Zithromax. 07/12/2024, the patient is being seen for a follow-up. This morning, the patient remains on 60 L of Airvo with an FiO2 of 70%. Denies having any new complaints. Voice remains hoarse. Receiving daily Lasix doses and a fluid balance is negative. Remains on IV Solu-Medrol. Afebrile. Hemodynamically stable. No new labs are available from today. Labs from yesterday were all stable. Recommended follow-up CAT scan of the chest to assess progression of the disease and the patient had a follow-up CAT scan that showed decrease in the interstitial and consolidative pulmonary opacities compared to the prior CAT scan. There is a trace left-sided pleural effusion and the patient has postsurgical changes on the left. Will recommend gradual titration of the FiO2. He remains profoundly weak On 07/13/2024, the patient remains on Airvo with 60 L with an FiO2 of 70%. Respiratory status is unchanged. Unable to wean down FiO2 any further. Still encountering oxygen desaturation. Repeat CAT scan of the chest was done yesterday and the results were favorable. In comparison, there is decrease in the interstitial densities in the right lung and improving the consolidation left lung base. There is a trace left-sided pleural effusion. As such, there is obvious improvement in the CAT scan findings. The white cell count is at 5.12 with a hemoglobin of 10.9 and a platelet count of 48. BUN is 29 and a creatinine of 0.5. Sodium levels at 131. Potassium level is at 4.1. He still on a clear liquid diet. The complete swallow evaluation is to be done tomorrow. The patient himself is feeling weak and is progressively getting more debilitated. Nevertheless, there is no interval worsening in respiratory status. Oxygenation remains impaired as the patient continues to have episode of desaturation with minimal activity. Patient was seen today on 07/14/2024, remains on 75% FiO2 at 60 L flow/Airvo, overall the patient is about the same. I reviewed the CT of the chest, there is minimal improvement if any noted in the CT of the chest, clinically the patient is about the same, his O2 saturation keep fluctuating up and down but still requiring relatively high FiO2 and high flow. Patient is on Airvo and he is also on a nonrebreather mask. WBC count today is 3.9 hemoglobin 10.8 electrolytes are normal except for sodium of 128 bicarb is 34 renal profile is normal patient remains on multiple meds including Lovenox, amlodipine, Flonase nasal spray, insulin Levemir and sliding scale, DuoNeb, Toradol, lorazepam, l osartan with hydrochlorothiazide, melatonin, metoprolol, pantoprazole, prednisone 60 mg daily, and Zoloft. Patient is also on Flomax Reevaluate today on 07/15/2024, basically the patient is clinically about the same, actually he seems to be a bit worse today, now the patient seems to have failed his swallow evaluation, and he is kept n.p.o. because of aspiration during swallowing. I was about to recommend nasogastric tube placement for feeding and nutritional support, however family is now considering hospice evaluation, and I think that is appropriate. Patient has been here for quite some time, and I honestly have not noticed any significant clinical improvement. Remains on high FiO2 and high oxygen flow, patient is marginal at best all along. And no major clinical improvement to speak of. And now that the patient seems to be aspirating, that will make the picture even worse, and will have to start feeding the patient via either Dobbhoff or nasogastric tube. Labs today were reviewed WBC is 4.1 hemoglobin 10.7 electrolytes are normal sodium is low at 128. Objective - Vital Signs Vital signs: Vital Signs Temp 98.5 F 07/15/24 11:32 Pulse 92 07/15/24 12:13 Resp 20 07/15/24 11:32 BP 108/73 07/15/24 11:32 Pulse Ox 93 L 07/15/24 12:03 FiO2 74 07/15/24 12:03 Intake & Output 07/14/24 07/15/24 07/15/24 18:59 06:59 18:59 Intake Total 240 Output Total 700 700 600 Balance -700 -460 -600 Weight 80.5 kg Intake: Oral 240 Output: Urine 700 700 600 Other: Voiding Method External Catheter External Catheter Urinal # Bowel Movements 1 - Exam GENERAL EXAM: revealed 74-year-old white male, dyspneic on Airvo 75% and 60 L flow, patient seems very frail, chronically ill, and profoundly weak. HEAD: Normocephalic and atraumatic EYES: Normal reaction of pupils, equal size. NOSE: Clear with pink turbinates. THROAT: No erythema or exudates. No white plaques or thrush. NECK: No masses, no JVD. CHEST: No chest wall deformity. Previous thoracotomy scar well-approximated LUNGS: Crackles at the bases. No rhonchi no wheezes CVS: S1 and S2 normal with no audible murmur, regular rhythm. No extra heart so unds ABDOMEN: No hepatosplenomegaly, active bowel sounds, no guarding or rigidity. SKIN: No rashes CENTRAL NERVOUS SYSTEM: Profoundly weak, otherwise no gross focal deficit EXTREMITIES: There is no peripheral edema, clubbing, or cyanosis. Peripheral pulses are intact. - Labs CBC & Chem 7: 07/15/24 08:30 07/15/24 06:11 Labs: Abnormal Lab Results - Last 24 Hours (Table) 07/14/24 07/14/24 07/15/24 Range/Units 16:31 20:09 05:55 RBC (4.30-5.90) m/uL Hgb (13.0-17.5) gm/dL Hct (39.0-53.0) % RDW (11.5-15.5) % Plt Count (150-450) k/uL Sodium (137-145) mmol/L Chloride (98-107) mmol/L Carbon Dioxide (22-30) mmol/L BUN (9-20) mg/dL Creatinine (0.66-1.25) mg/dL Glucose (74-99) mg/dL POC Glucose (mg/dL) 223 H 303 H 120 H (70-110) mg/dL ALT (4-49) U/L Total Protein (6.3-8.2) g/dL Albumin (3.5-5.0) g/dL 07/15/24 07/15/24 07/15/24 Range/Units 06:11 08:30 11:37 RBC 3.41 L (4.30-5.90) m/uL Hgb 10.7 L (13.0-17.5) gm/dL Hct 30.9 L (39.0-53.0) % RDW 19.1 H (11.5-15.5) % Plt Count 42 L (150-450) k/uL Sodium 128 L (137-145) mmol/L Chloride 90 L (98-107) mmol/L Carbon Dioxide 34 H (22-30) mmol/L BUN 24 H (9-20) mg/dL Creatinine 0.37 L (0.66-1.25) mg/dL Glucose 102 H (74-99) mg/dL POC Glucose (mg/dL) 241 H (70-110) mg/dL ALT 50 H (4-49) U/L Total Protein 4.8 L (6.3-8.2) g/dL Albumin 2.6 L (3.5-5.0) g/dL Assessment and Plan Assessment: Pression: Acute hypoxic respiratory failure, multifactorial, CT of the chest is quite concerning with significant worsening of his interstitial pneumonitis, possible radiation pneumonitis Acute exacerbation of COPD, on bronchodilators Pulmonary adenocarcinoma with previous left upper lobectomy on 11/14/2023 with complicated postoperative course with postoperative staging of T2 N2 disease, genetic sequencing showed no evidence of any targetable mutation patient is status post chemotherapy completed on 03/31, patient was supposed to go on durvalumab for a total of 1 year, however according to the patient and this was never given. So very unlikely that his pneumonitis is related to this. Considering his history of adenocarcinoma, and considering his profound hypoxemia with abnormal CT of the chest, lymphangitic carcinomatosis should be in the picture/differential diagnosis. Again patient is not a great candidate for bronchoscopy at this point with his overall pulmonary status. But that is to be considered if the patient ends up requiring intubation mechanical ventilation. Vocal cord paralysis Dysphagia secondary to above, patient had swallow evaluation, failed the swallow evaluation, patient is aspirating may require nasogastric tube placement or Dobbhoff tube placement and eventually PEG tube placement Chronic anemia Benign essential hypertension Obstructive sleep apnea Former smoker Recommendation: Discussed his condition with the at bedside. Continue present supportive care measures After rounding on the patient, I was made aware that the family decided to go with hospice, and I believe that is very appropriate, I fully support her decision. Will sign off and see the patient on as needed. Time with Patient: Less than 30
[2024-07-15 14:00] VITALS: BMI 26.9
== END 2024-07-15 14:25 | disposition hospice, inpatient (51) | DRG 205 ==
LOC: EC 20:10 → 3SCARD 21:49
PROVIDERS: ADMIT Internal Medicine; ATTEND Internal Medicine
DX: J70.0 Acute pulmonary manifestations due to radiation (principal); J96.21 Acute and chronic respiratory failure with hypoxia; J96.22 Acute and chronic respiratory failure with hypercapnia; C77.1 Secondary and unspecified malignant neoplasm of intrathoracic lymph nodes; E87.4 Mixed disorder of acid-base balance; C34.12 Malignant neoplasm of upper lobe, left bronchus or lung; E87.1 Hypo-osmolality and hyponatremia; D69.6 Thrombocytopenia, unspecified; D63.8 Anemia in other chronic diseases classified elsewhere; J91.8 Pleural effusion in other conditions classified elsewhere; J44.0 Chronic obstructive pulmonary disease with (acute) lower respiratory infection; I10 Essential (primary) hypertension; E11.65 Type 2 diabetes mellitus with hyperglycemia; F32.A Depression, unspecified; J47.0 Bronchiectasis with acute lower respiratory infection; K92.1 Melena; J44.1 Chronic obstructive pulmonary disease with (acute) exacerbation; J15.9 Unspecified bacterial pneumonia; J70.1 Chronic and other pulmonary manifestations due to radiation; Z66 Do not resuscitate; Z51.5 Encounter for palliative care; J84.89 Other specified interstitial pulmonary diseases; J38.00 Paralysis of vocal cords and larynx, unspecified; R13.10 Dysphagia, unspecified; Z99.81 Dependence on supplemental oxygen; F41.9 Anxiety disorder, unspecified; K21.9 Gastro-esophageal reflux disease without esophagitis; N40.0 Benign prostatic hyperplasia without lower urinary tract symptoms; T45.1X5A Adverse effect of antineoplastic and immunosuppressive drugs, initial encounter; D64.81 Anemia due to antineoplastic chemotherapy; G47.33 Obstructive sleep apnea (adult) (pediatric); E87.5 Hyperkalemia; K59.00 Constipation, unspecified; T38.0X5A Adverse effect of glucocorticoids and synthetic analogues, initial encounter; Z79.899 Other long term (current) drug therapy; Z90.2 Acquired absence of lung [part of]; Z87.891 Personal history of nicotine dependence; Z92.3 Personal history of irradiation; Z92.21 Personal history of antineoplastic chemotherapy
CPT/HCPCS: 36410; 36415; 71045; 71046; 71250; 71275; 76937; 80048; 80053; 83605; 83735; 83880; 84100; 84145; 84484; 85025; 85027; 85610; 85730; 86140; 87070; 87205; 87636; 93005; 94640; 94760; 96365; 96367; 99291